=== PATIENT | female | born 1960 | race African-American/Black ===

== ENCOUNTER 2017-09-16 21:46 | Observation (INO) | payer OTHER ==
[2017-09-16 23:42] LABS: Protime INR 0.96
[2017-09-16 23:45] LABS: Absolute Lymphocytes (CBC) 4.2 K/uL (0.7-4.9); Absolute Monocytes 1.5 K/uL (0.1-1.3); Absolute Neutrophil 6.6 K/uL (1.8-8.0); Basophils % 0.8 % (0-1.3); Eosinophils % 2.7 % (0-4.4); Hematocrit 33.9 % (36.0-45.0); Lymphocytes % 33.3 % (15.3-44.8); MCH 32.2 pg (27.0-35.0); MCV 95.2 fL (80-100); Monocytes % 11.8 % (3.3-12.3); RBC Red Blood Cell Count 3.56 M/uL (3.86-4.86)
[2017-09-16 23:48] LABS: Bicarbonate 26 mEq/L (21-31); Glucose Level 205 mg/dL (65-120); Potassium 3.2 mEq/L (3.6-5.0); Sodium Level 139 mEq/L (135-145)
[2017-09-16 23:54] LABS: ALT/SGPT 22 IU/L (10-60); AST/SGOT 39 IU/L (10-42); Albumin 4.1 g/dL (3.2-5.5); Alkaline Phosphatase 52 IU/L (42-121); BUN Blood Urea Nitrogen 18 mg/dL (6-20); Bilirubin Direct < 0.1 mg/dL (0-0.2); Bilirubin Total 0.3 mg/dL (0.3-1.2); Creatine Phosphokinase 247 IU/L (22-269); Protein, Total 7.4 g/dL (6.0-8.3)
[2017-09-16] MEDS ORDERED: LORazepam 2 MG/ML VIAL ONE (23:55)
[2017-09-16 23:57] LABS: CKMB Creatine Kinase MB 1.3 ng/ml (0.3-4.0)
[2017-09-17] MEDS ORDERED: Magnesium Sulfate 2gm IVPB 2 G/50 ML BAG IV ONE (00:05)
[2017-09-17 00:11] LABS: Blood Morphology Comment NOTED (NOT SEEN); Howell-Jolly Bodies NOTED; Platelet Estimate ADEQ
[2017-09-17] MEDS ORDERED: ASPIRIN 81 MG CHEWABLE TABLET ONE (00:47)
[2017-09-17 01:04] LABS: Urine Blood NEGATIVE (NEG); Urine Glucose NEGATIVE (NEG); Urine Protein NEGATIVE (NEG); Urine pH 5.5 (5.0-7.0)
[2017-09-17] MEDS ORDERED: ACETAMINOPHEN 500 MG TAB ONE (02:21)
[2017-09-17] MEDS ORDERED: NA CHLORIDE 0.9% 1,000 ML ONE (03:06)
--- NOTE | 2017-09-17 03:06 | ER ---
Nurse's Notes [facility] Name: Destiny Salguero Age: 57 yrs Sex: Female : 1960 Arrival Date: 09/16/2017 Time: 21:47 Bed 18 Private MD: Diagnosis: Dyspnea;Hypomagnesemia;Hypokalemia Presentation: 09/16 21:55 Presenting complaint: Patient states: N/V, cough \\T\\ SOB x 2 weeks. States, "I've just aa1 been fightin it but these past 2 days it just got worser and I just hurt all over and I have chronic pain anyway.". Transition of care: patient was not received from another setting of care. Onset of symptoms was September 05, 2017. Initial Sepsis Screen: Does the patient meet any 2 criteria? No. Patient's initial sepsis screen is negative. Does the patient have a suspected source of infection? Yes: Productive cough/pneumonia. Care prior to arrival: None. 21:55 Method Of Arrival: Wheelchair aa1 21:55 Acuity: MARYBEL 3 aa1 Triage Assessment: 22:01 General: Appears in no apparent distress. comfortable, Behavior is calm, cooperative, aa1 appropriate for age. Respiratory: Airway is patent Respiratory effort is even, unlabored. 09/17 03:28 Respiratory: Onset: The symptoms/episode began/occurred yesterday, the patient has mild jd3 shortness of breath. Historical: - Allergies: 09/16 22:01 Sulfasalazine (Vomiting); aa1 - Home Meds: 22:01 metformin 1,000 mg Oral tab 1 tab 2 times per day [Active]; lisinopril 5 mg Oral tab 1 aa1 tab once daily [Active]; bumetanide 2 mg Oral tab 1 tab once daily [Active]; simvastatin 20 mg Oral tab 1 tab nightly [Active]; carvedilol 6.25 mg Oral tab 1 tab 2 times per day [Active]; aspirin 81 mg Oral TbEC 1 tab once daily [Active]; folic acid 1 mg Oral tab 1 tab once daily [Active]; methotrexate sodium 2.5 mg Oral tab 3 tabs once wkly [Active]; Novolin N 100 unit/mL Sub-Q tab [Active]; Novolin R Sub-Q [Active]; omeprazole 40 mg oral cpDR once daily [Active]; Orencia 125 mg/mL subcutaneous syrg 1 mL once wkly [Active]; Vitamin D3 5,000 unit oral tab daily [Active]; Vitamin B-12 1,000 mcg Oral tab daily [Active]; - PMHx: 22:01 Anemia; Diabetes - IDDM; Hyperlipidemia; CHF; Hypertension; Rheumatoid Arthritis; aa1 sciatica; - PSHx: 22:01 Pacemaker; Spleenectomy; Appendectomy; Desmoid Tumor Removal; Carpal Tunnel Repair; aa1 Bunionectomy; Bone Spur Removal Cervical; - Immunization history:: Flu vaccine is not up to date. - Social history:: Smoking status: Patient/guardian denies using tobacco. Screenin/04 03:26 Abuse screen: Denies threats or abuse. Nutritional screening: No deficits noted. jd3 Tuberculosis screening: No symptoms or risk factors identified. Fall Risk IV access (20 points). Ambulatory Aid- Crutches/Cane/Walker (15 pts). Gait- Weak (10 pts.). Total Roque Fall Scale indicates High Risk Score (45 or more points). Fall prevention measures have been instituted. Side Rails Up X 2 Placed Close to Nursing Station Frequent Obs/Assessments Occuring Family Present and informed to notify staff if the need to leave the bedside. Assessment: 09/16 23:32 General: Appears distressed, ill, Behavior is cooperative, crying, restless, Reports mb3 feeling ill for > 3 days, states feels like it did when she had to have the cardiocentesis. Pain: Complains of pain in back and abdomen. Neuro: No deficits noted. Cardiovascular: Reports fatigue, nausea, shortness of breath, vomiting, Heart tones present Rhythm is A-V sequential pacer. Respiratory: Reports shortness of breath at rest labored breathing since last week Respiratory effort is even, unlabored, Respiratory pattern is regular, symmetrical, Breath sounds are clear Breath sounds are diminished bilaterally. in left lower lobe, right lower lobe, left posterior lower lobe and right posterior lower lobe. GI: Bowel sounds present X 4 quads. Abd is soft Abdomen is tender to palpation in right lower quadrant Reports cramping, nausea, vomiting. Musculoskeletal: No deficits noted. 09/17 00:34 Reassessment: Patient and/or family updated on plan of care and expected duration. Pain mb3 level reassessed. Patient is alert, oriented x 3, equal unlabored respirations, skin warm/dry/pink. Pt states head starting to hurt. 01:35 Reassessment: Patient and/or family updated on plan of care and expected duration. Pain mb3 level reassessed. Patient is alert, oriented x 3, equal unlabored respirations, skin warm/dry/pink. Patient states feeling better. 02:19 Reassessment: Patient and/or family updated on plan of care and expected duration. Pain mb3 level reassessed. States headache getting worse. Brent CLINICAL TRIALS NURSE informed. 03:26 Reassessment: Patient appears in no apparent distress at this time. Patient and/or jd3 family updated on plan of care and expected duration. Pain level reassessed. Patient is alert, oriented x 3, equal unlabored respirations, skin warm/dry/pink. 04:30 Reassessment: Patient appears in no apparent distress at this time. Patient and/or jd3 family updated on plan of care and expected duration. Pain level reassessed. Patient is alert, oriented x 3, equal unlabored respirations, skin warm/dry/pink. 05:36 Reassessment: Patient appears in no apparent distress at this time. Patient and/or jd3 family updated on plan of care and expected duration. Pain level reassessed. Patient is alert, oriented x 3, equal unlabored respirations, skin warm/dry/pink. pt reporting understanding on need for admission. charting continued in [facility]. Vital Signs: 09/16 22:01 BP 113 / 71; Pulse 87; Resp 20; Temp 97.9; Pulse Ox 100% on R/A; Weight 101.6 kg (R); aa1 Height 5 ft. 8 in. (172.72 cm) (R); Pain 10/; 09/17 00:04 BP 100 / 58; Pulse 90; Resp 20; Pulse Ox 100% on R/A; mb3 00:32 BP 115 / 64; Pulse 88; Resp 20; Pulse Ox 99% on R/A; Pain 6/10; mb3 01:29 BP 109 / 62; Pulse 74; Resp 20; Pulse Ox 100% on R/A; mb3 02:17 BP 96 / 58; Pulse 88; Resp 20; Pulse Ox 99% on R/A; Pain 8/10; mb3 03:25 BP 118 / 69; Pulse 85; Resp 19 S; Pulse Ox 100% on R/A; jd3 05:44 BP 124 / 59; Pulse 82; Resp 19 S; Pulse Ox 99% on R/A; Pain 0/10; jd3 0503 22:01 Body Mass Index 34.06 (101.60 kg, 172.72 cm) aa1 ED Course: 09/16 21:47 Patient arrived in ED. ds1 21:57 Triage completed. aa1 22:01 Arm band placed on right wrist. aa1 22:35 Selena Kennedy FNP-C is PHCP. snw 22:35 Refugio Alberto MD is Attending Physician. snw 22:49 Gabriele Perez, [place] is Primary Nurse. mb3 23:32 XRAY Chest (1 view) In Process Unspecified. EDMS 23:32 Inserted saline lock: 18 gauge in right antecubital area, using aseptic technique. mb3 05 00:03 Notified Nurse Practitioner and/or Physician Undercover Cop of a critical lab result(s), Mag mb3 \\T\\1.0. 03:04 Chapin Salmeron MD is Hospitalizing Provider. snw 03:28 Patient has correct armband on for positive identification. Placed in gown. Bed in low jd3 position. Call light in reach. Side rails up X2. Adult w/ patient. 04:04 Primary Nurse role handed off by Gabriele Perez, [place] jd3 04:04 Eulogio Reynolds, [place] is Primary Nurse. jd3 05:35 No provider procedures requiring assistance completed. Patient admitted, IV remains in tl2 place. 09:27 Echocardiogram with doppler done by science technician. dt2 09:27 Dressings:. dt2 09:58 Primary Nurse role handed off by Eulogio Reynolds, RN ed1 09:58 Karyn Tran LVN is Primary Nurse. ed1 11:06 Patient admitted, IV remains in place. intact, No redness/swelling at site. ed1 Administered Medications: 00:00 Drug: Ativan 1 mg Route: IVP; Site: right antecubital; mb3 01:32 Follow up: Response: Anxiety decreased mb3 00:25 Drug: Magnesium Sulfate 2 grams Route: IVPB; Infused Over: 2 hrs; Site: right mb3 antecubital; 01:29 Follow up: BP 109 / 62; Pulse 74 bpm; Resp 20 bpm; Pulse Ox 100% RA mb3 01:31 Follow up: IV Status: Completed infusion; IV converted to saline lock; IV Intake: 100ml mb3 01:01 Drug: Aspirin Chewable Tablet 324 mg Route: PO; jd3 01:32 Follow up: Response: No adverse reaction mb3 02:23 Drug: Tylenol 500 mg Route: PO; jd3 03:01 Follow up: Response: No adverse reaction jd3 03:20 Drug: Potassium Chloride 20 mEq Route: IV; Rate: calculated rate; Site: right jd3 antecubital; 05:37 Follow up: Response: No adverse reaction; IV Status: Completed infusion jd3 03:20 Drug: NS 0.9% 1000 ml Route: IV; Rate: 75 ml/hr; Site: right antecubital; jd3 05:37 Follow up: Response: No adverse reaction; IV Status: Order to discontinue infusion; IV jd3 Intake: 75ml 04:26 Drug: Ativan 1 mg Route: PO; tl2 05:37 Follow up: Response: Marked relief of symptoms jd3 Intake: 01:31 IV: 100ml; Total: 100ml. mb3 05:37 IV: 75ml; Total: 175ml. jd3 Outcome: 03:05 Decision to Hospitalize by Provider. snw 05:35 Admitted to ER Hold. Please see [facility] for further documentation. jd3 05:35 Condition: stable 05:35 Instructed on the need for admit, Demonstrated understanding of instructions. 11:06 Admitted to Med/surg accompanied by tech, family with patient, via stretcher, room 211, ed1 Report called to [place] Sheridan 11:07 Patient left the ED. ed1 Signatures: Dispatcher [employer] EDMS Jessika Alicea RN RN aa1 Selena Kennedy, DIAMOND DRILLER HELPER-C DIAMOND DRILLER HELPER-CsnMaria Isabel Tomas ds1 Karyn Tran, CALL OR CONTACT CENTRE COACH CALL OR CONTACT CENTRE COACH ed1 Ella Randle RN RN tl2 Eulogio Reynolds RN RN jd3 Tania Naranjo dt2 Gabriele Perez RN RN mb3 Corrections: (The following items were deleted from the chart) 02:58 02:17 BP 96 / 58; Pulse 88bpm; Resp 20bpm; Pulse Ox 88% RA; Pain 8/10; mb3 mb3
--- NOTE | 2017-09-17 03:06 | EDPHYS ---
Physician Documentation [facility] Name: Destiny Salguero Age: 57 yrs Sex: Female : 1960 Arrival Date: 09/16/2017 Time: 21:47 Bed 18 Private MD: ED Physician Refugio Alberto HPI: 09/16 23:21 This 57 yrs old Black Female presents to ER via Wheelchair with complaints of Shortness snw Of Breath. 23:21 The patient has shortness of breath at rest. Onset: The symptoms/episode began/occurred snw suddenly, 2 week(s) ago, and became persistent. Duration: The symptoms are continuous. Associated signs and symptoms: Pertinent positives: pain all over, depression, shortness of breath x 2 weeks. Severity of symptoms: At their worst the symptoms were severe in the emergency department the symptoms are unchanged. The patient has experienced a previous episode, approximately 1 years ago. The patient has not recently seen a physician. changed from Dr. Hannon to a clinic in [facility]. Historical: - Allergies: 22:01 Sulfasalazine (Vomiting); aa1 - Home Meds: 22:01 metformin 1,000 mg Oral tab 1 tab 2 times per day [Active]; lisinopril 5 mg Oral tab 1 aa1 tab once daily [Active]; bumetanide 2 mg Oral tab 1 tab once daily [Active]; simvastatin 20 mg Oral tab 1 tab nightly [Active]; carvedilol 6.25 mg Oral tab 1 tab 2 times per day [Active]; aspirin 81 mg Oral TbEC 1 tab once daily [Active]; folic acid 1 mg Oral tab 1 tab once daily [Active]; methotrexate sodium 2.5 mg Oral tab 3 tabs once wkly [Active]; Novolin N 100 unit/mL Sub-Q tab [Active]; Novolin R Sub-Q [Active]; omeprazole 40 mg oral cpDR once daily [Active]; Orencia 125 mg/mL subcutaneous syrg 1 mL once wkly [Active]; Vitamin D3 5,000 unit oral tab daily [Active]; Vitamin B-12 1,000 mcg Oral tab daily [Active]; - PMHx: 22:01 Anemia; Diabetes - IDDM; Hyperlipidemia; CHF; Hypertension; Rheumatoid Arthritis; aa1 sciatica; - PSHx: 22:01 Pacemaker; Spleenectomy; Appendectomy; Desmoid Tumor Removal; Carpal Tunnel Repair; aa1 Bunionectomy; Bone Spur Removal Cervical; - Immunization history:: Flu vaccine is not up to date. - Social history:: Smoking status: Patient/guardian denies using tobacco. ROS: 23:21 Eyes: Negative for injury, pain, redness, and discharge, ENT: Negative for injury, snw pain, and discharge, Neck: Negative for injury, pain, and swelling. 23:21 Back: Negative for injury and pain, : Negative for injury, bleeding, discharge, and swelling, MS/Extremity: Negative for injury and deformity, Skin: Negative for injury, rash, and discoloration, Neuro: Negative for headache, weakness, numbness, tingling, and seizure. 23:21 Constitutional: Positive for body aches, chills, fatigue, malaise. 23:21 Cardiovascular: Positive for palpitations. 23:21 Respiratory: Positive for shortness of breath. 23:21 Abdomen/GI: Positive for abdominal pain, of the right lower quadrant. 23:21 Psych: Positive for anxiety, depression. Exam: 23:25 Head/Face: Normocephalic, atraumatic. Eyes: Pupils equal round and reactive to light, snw extra-ocular motions intact. Lids and lashes normal. Conjunctiva and sclera are non-icteric and not injected. Cornea within normal limits. Periorbital areas with no swelling, redness, or edema. ENT: Nares patent. No nasal discharge, no septal abnormalities noted. Tympanic membranes are normal and external auditory canals are clear. Oropharynx with no redness, swelling, or masses, exudates, or evidence of obstruction, uvula midline. Mucous membranes moist. Neck: Trachea midline, no thyromegaly or masses palpated, and no cervical lymphadenopathy. Supple, full range of motion without nuchal rigidity, or vertebral point tenderness. No Meningismus. Chest/axilla: Normal chest wall appearance and motion. Nontender with no deformity. No lesions are appreciated. Cardiovascular: Regular rate and rhythm with a normal S1 and S2. No gallops, murmurs, or rubs. Normal PMI, no JVD. No pulse deficits. Abdomen/GI: Soft, non-tender, with normal bowel sounds. No distension or tympany. No guarding or rebound. No evidence of tenderness throughout. Back: No spinal tenderness. No costovertebral tenderness. Full range of motion. Skin: Warm, dry with normal turgor. Normal color with no rashes, no lesions, and no evidence of cellulitis. MS/ Extremity: Pulses equal, no cyanosis. Neurovascular intact. Full, normal range of motion. Neuro: Awake and alert, GCS 15, oriented to person, place, time, and situation. Cranial nerves II-XII grossly intact. Motor strength 5/5 in all extremities. Sensory grossly intact. Cerebellar exam normal. Normal gait. 23:25 Constitutional: The patient appears alert, anxious, obese, restless, uncomfortable. 23:25 Respiratory: the patient does not display signs of respiratory distress, Respirations: shallow respirations, panting, Breath sounds: are clear throughout. Vital Signs: 22:01 BP 113 / 71; Pulse 87; Resp 20; Temp 97.9; Pulse Ox 100% on R/A; Weight 101.6 kg (R); aa1 Height 5 ft. 8 in. (172.72 cm) (R); Pain 10/10; 05 00:04 BP 100 / 58; Pulse 90; Resp 20; Pulse Ox 100% on R/A; mb3 00:32 BP 115 / 64; Pulse 88; Resp 20; Pulse Ox 99% on R/A; Pain 6/10; mb3 01:29 BP 109 / 62; Pulse 74; Resp 20; Pulse Ox 100% on R/A; mb3 02:17 BP 96 / 58; Pulse 88; Resp 20; Pulse Ox 99% on R/A; Pain 8/10; mb3 03:25 BP 118 / 69; Pulse 85; Resp 19 S; Pulse Ox 100% on R/A; jd3 05:44 BP 124 / 59; Pulse 82; Resp 19 S; Pulse Ox 99% on R/A; Pain 0/10; jd3 09/16 22:01 Body Mass Index 34.06 (101.60 kg, 172.72 cm) aa1 MDM: 09/16 22:36 Patient medically screened. snw 09/17 03:03 Data reviewed: vital signs, nurses notes. Data interpreted: Pulse oximetry: on room air snw is 100 %. Interpretation: normal. Counseling: I had a detailed discussion with the patient and/or guardian regarding: the historical points, exam findings, and any diagnostic results supporting the discharge/admit diagnosis, lab results, radiology results, the need for further work-up and treatment in the hospital. Physician consultation: Chapin Salmeron MD was called at 03:04, was contacted at 03:04, regarding admission, to the telemetry unit. in the emergency department to see patient at 03:04. 09/16 23:08 Order name: Basic Metabolic Panel; Complete Time: 00:03 snw 09/16 23:08 Order name: BNP; Complete Time: 00:02 snw 09/16 23:08 Order name: CBC with Diff; Complete Time: 00:22 snw 09/16 23:08 Order name: Ckmb; Complete Time: 00:03 snw 09/16 23:08 Order name: CPK; Complete Time: 00:03 snw 09/16 23:08 Order name: LFT's; Complete Time: 00:03 snw 09/16 23:08 Order name: Magnesium; Complete Time: 00:03 snw 09/16 23:08 Order name: PT-INR; Complete Time: 23:49 snw 09/16 23:08 Order name: Ptt, Activated; Complete Time: 23:49 snw 09/16 23:08 Order name: Troponin (emerg Dept Use Only); Complete Time: 00:02 snw 09/16 23:09 Order name: Blood Culture Adult (2) snw 09/16 23:09 Order name: Procalcitonin; Complete Time: 00:04 snw 09/17 00:11 Order name: Manual Differential; Complete Time: 00:22 EDMS 09/17 00:23 Order name: Urine Dipstick--Ancillary (enter results); Complete Time: 01:13 rg2 09/16 23:08 Order name: XRAY Chest (1 view); Complete Time: 16:59 snw 09/16 23:08 Order name: EKG; Complete Time: 23:09 snw 09/16 23:08 Order name: Cardiac monitoring; Complete Time: 23:12 snw 09/16 23:08 Order name: EKG - Nurse/Tech; Complete Time: 23:45 snw 09/16 23:08 Order name: IV Saline Lock; Complete Time: 23:32 snw 09/16 23:08 Order name: Labs collected and sent; Complete Time: 23:32 snw 09/16 23:08 Order name: O2 Per Protocol; Complete Time: 23:12 snw 09/17 06:50 Order name: Troponin I; Complete Time: 16:59 EDMS 09/17 08:06 Order name: Glucose, Ancillary Testing; Complete Time: 16:59 EDMS 09/16 23:08 Order name: O2 Sat Monitoring; Complete Time: 23:12 snw 09/16 23:08 Order name: Urine Dipstick-Ancillary (obtain specimen); Complete Time: 00:31 snw Administered Medications: 00:00 Drug: Ativan 1 mg Route: IVP; Site: right antecubital; mb3 01:32 Follow up: Response: Anxiety decreased mb3 00:25 Drug: Magnesium Sulfate 2 grams Route: IVPB; Infused Over: 2 hrs; Site: right 3 antecubital; 01:29 Follow up: BP 109 / 62; Pulse 74 bpm; Resp 20 bpm; Pulse Ox 100% RA mb3 01:31 Follow up: IV Status: Completed infusion; IV converted to saline lock; IV Intake: 100ml mb3 01:01 Drug: Aspirin Chewable Tablet 324 mg Route: PO; jd3 01:32 Follow up: Response: No adverse reaction mb3 02:23 Drug: Tylenol 500 mg Route: PO; jd3 03:01 Follow up: Response: No adverse reaction jd3 03:20 Drug: Potassium Chloride 20 mEq Route: IV; Rate: calculated rate; Site: right [facility] antecubital; 05:37 Follow up: Response: No adverse reaction; IV Status: Completed infusion jd3 03:20 Drug: NS 0.9% 1000 ml Route: IV; Rate: 75 ml/hr; Site: right antecubital; jd3 05:37 Follow up: Response: No adverse reaction; IV Status: Order to discontinue infusion; IV jd3 Intake: 75ml 04:26 Drug: Ativan 1 mg Route: PO; tl2 05:37 Follow up: Response: Marked relief of symptoms jd3 Disposition: 19:26 Co-signature as Attending Physician, Refugio Alberto MD. Disposition: 09/17/17 03:05 Hospitalization ordered by Chapin Salmeron for Inpatient Admission. Preliminary diagnosis are Dyspnea, Hypomagnesemia, Hypokalemia. - Bed requested for Telemetry/MedSurg (Inpatient). - Status is Inpatient Admission. ed1 - Condition is Stable. - Problem is an acute exacerbation. - Symptoms are unchanged. UTI on Admission? No Signatures: Dispatcher [employer] EDMS Juan Ramon Vera rg2 Jessika Alicea, RN RN aa1 Selena Kennedy, LAST TRIMMER-C LAST TRIMMER-Csnw Tran, Karyn, LOAD TEST MECHANIC LOAD TEST MECHANIC ed1 Ella Randle RN RN tl2 Carlotta Gallagher RN RN df Refugio Alberto MD MD Eulogio Reynolds RN RN jd3 Mora Carrillo Mark RN RN mb3 Corrections: (The following items were deleted from the chart) 01:01 09/16 23:08 [place] ordered. snw jd3 09/17 04:12 03:05 Hospitalization Ordered by Chapin Salmeron MD for Inpatient Admission. Preliminary rg2 diagnosis is Dyspnea; Hypomagnesemia; Hypokalemia. Bed requested for Telemetry/MedSurg (observation). Status is Inpatient Admission. Condition is Stable. Problem is an acute exacerbation. Symptoms are unchanged. UTI on Admission? No. snw 07:06 04:12 09/17/2017 03:05 Hospitalization Ordered by Chapin Salmeron MD for Inpatient eb Admission. Preliminary diagnosis is Dyspnea; Hypomagnesemia; Hypokalemia. Bed requested for [facility] ER HOLD. Status is Inpatient Admission. Condition is Stable. Problem is an acute exacerbation. Symptoms are unchanged. UTI on Admission? No. rg2 09:40 07:06 09/17/2017 03:05 Hospitalization Ordered by Chapin Salmeron MD for Inpatient eb Admission. Preliminary diagnosis is Dyspnea; Hypomagnesemia; Hypokalemia. Bed requested for [facility] ER HOLD. Status is Inpatient Admission. Condition is Stable. Problem is an acute exacerbation. Symptoms are unchanged. UTI on Admission? No. eb 09:41 09:40 09/17/2017 03:05 Hospitalization Ordered by Chapin Salmeron MD for Inpatient df Admission. Preliminary diagnosis is Dyspnea; Hypomagnesemia; Hypokalemia. Bed requested for Telemetry/MedSurg (Inpatient). Status is Inpatient Admission. Condition is Stable. Problem is an acute exacerbation. Symptoms are unchanged. UTI on Admission? No. eb 09:54 09:41 09/17/2017 03:05 Hospitalization Ordered by Chapin Salmeron MD for Inpatient df Admission. Preliminary diagnosis is Dyspnea; Hypomagnesemia; Hypokalemia. Bed requested for Telemetry/MedSurg (Inpatient). Status is Inpatient Admission. Condition is Stable. Problem is an acute exacerbation. Symptoms are unchanged. UTI on Admission? No. df 10:43 09:54 09/17/2017 03:05 Hospitalization Ordered by Chapin Salmeron MD for Inpatient eb Admission. Preliminary diagnosis is Dyspnea; Hypomagnesemia; Hypokalemia. Bed requested for [facility] ER HOLD. Status is Inpatient Admission. Condition is Stable. Problem is an acute exacerbation. Symptoms are unchanged. UTI on Admission? No. df 11:07 10:43 09/17/2017 03:05 Hospitalization Ordered by Chapin Salmeron MD for Inpatient ed1 Admission. Preliminary diagnosis is Dyspnea; Hypomagnesemia; Hypokalemia. Bed requested for Telemetry/MedSurg (Inpatient). Status is Inpatient Admission. Condition is Stable. Problem is an acute exacerbation. Symptoms are unchanged. UTI on Admission? No. eb
[2017-09-17] MEDS ORDERED: KCL 20 MEQ/100 mL IVPB 20 MEQ/100 ML BAG IV ONE (03:07)
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
[2017-09-17] MEDS ORDERED: LORAZEPAM 1 MG TABLET ONE (04:24)
[2017-09-17] MEDS ORDERED: ONDANSETRON 4 MG/2 ML VIAL IV PRN (04:50)
[2017-09-17 05:28] VITALS: BMI 34.0
[2017-09-17] MEDS: INSULIN -REGULAR HUMAN 50 UNIT/0.5 ML ML SQ SCH ×4 (07:30→20:08)
--- NOTE | 2017-09-17 07:53 | RAD REPORT ---
EXAM DESCRIPTION: Nichole Single View09/16/2017 11:32 pm CLINICAL HISTORY: Cough COMPARISON: November 2016 FINDINGS: The left lung base is mildly hazy. The right lung appears appear clear of acute infiltrate . The heart is normal size. Pacemaker leads are in place. IMPRESSION: The left lung base is mildly hazy which may indicate the pneumonia. Another consideratio n is that this represents overlying soft tissue. PA and lateral chest series could be obtained for fu rther evaluation
--- NOTE | 2017-09-17 12:18 | EKG ---
Test Date: 2017-09-17 Test Time: 03:06:17 [employer] Cl[employer]: MIREYA MEASUREMENT RESULTS: Intervals: Rate: 85 SD: 192 QRSD: 170 QT: 456 QTc: 542 [place]: P: 67 SD: 192 QRS: -69 T: 80 INTERPRETIVE STATEMENTS: Electronic ventricular pacemaker Compared to ECG 11/24/2016 14:02:18 No significant changes Electronically Signed On 09-17-17 12:17:35 CDT by Orlando Ding
--- NOTE | 2017-09-17 14:24 | ECHO ---
HEIGHT: 5 ft 8 in WEIGHT: 223 lb 15.834 oz DATE OF STUDY: 09/17/[address]: 2-DIMENSIONAL: YES M.MODE: YES DOPPLER: YES COLOR FLOW: YES TDS: NO PORTABLE: NO DEFINITY: NO BUBBLE STUDY: NO DIAGNOSIS: SHORTNESS OF BREATH CARDIAC HISTORY: CATHERIZATION: NO SURGERY: NO PROSTHETIC VALVE: NO PACEMAKER: YES MEASUREMENTS (cm) DIASTOLIC (NORMALS) SYSTOLIC (NORMALS) IVSd 1.0 (0.6-1.2) LA Diam 3.4 (1.9-4.0) LVEF 50-55% LVIDd 4.2 (3.5-5.7) LVIDs 3.2 (2.0-3.5) %FS 23% LVPWd 1.0 (0.6-1.2) Ao Diam 3.1 (2.0-3.7) 2 DIMENSIONAL ASSESSMENT: RIGHT ATRIUM: DILATED LEFT ATRIUM: DILATED RIGHT VENTRICLE: PACEMAKER IN RIGHT VENTRICULAR LEFT VENTRICLE: NORMAL TRICUSPID VALVE: NORMAL MITRAL VALVE: NORMAL PULMONIC VALVE: NORMAL AORTIC VALVE: SCLEROSIS PERICARDIAL EFFUSION: NONE AORTIC ROOT: NORMAL LEFT VENTRICULAR WALL MOTION: PARADOXICAL SEPTAL MOTION. POSSIBLY DUE TO PACED RHYTHM. DOPPLER/COLOR FLOW: IMPARIED LEFT VENTRICULAR RELAXATION. NO AORTIC STENOSIS OR AORTIC REGURGITATION. COMMENTS: NORMAL LEFT VENTRICULAR EJECTION FRACTIONS WITH PARADOXAL SEPTAL MOTION. DILATED LEFT ATRIUM. DILATED RIGHT ATRIUM. PACEMAKER IN RIGHT VENTRICLE. IMPAIRED LEFT VENTRICULAR RELAXATION. AORTIC SCLEROSIS. TECHNOLOGIST: KATHLEEN CHAMORRO RDCS
[2017-09-17] MEDS: HYDROCODONE/APAP 5/325 MG TAB PO PRN ×2 (14:36→20:10)
[2017-09-17 23:21] VITALS: O2SAT 99
[2017-09-17] MEDS ORDERED: MAGNESIUM SULFATE 1 gm IVPB 1 GM/100 ML BAG IV ONE (23:23)
[2017-09-18] MEDS: HYDROCODONE/APAP 5/325 MG TAB PO PRN ×2 (04:49→12:37)
[2017-09-18 06:13] LABS: Potassium 4.3 mEq/L (3.6-5.0)
[2017-09-18 06:48] LABS: Absolute Lymphocytes (CBC) 4.1 K/uL (0.7-4.9); Absolute Monocytes 1.5 K/uL (0.1-1.3); Absolute Neutrophil 10.3 K/uL (1.8-8.0); Basophils % 0.7 % (0-1.3); Eosinophils % 2.1 % (0-4.4); Hematocrit 32.9 % (36.0-45.0); Lymphocytes % 24.9 % (15.3-44.8); MCH 31.6 pg (27.0-35.0); MCV 96.5 fL (80-100); MPV 9.3 fL (7.6-11.3); Monocytes % 9.2 % (3.3-12.3)
[2017-09-18] MEDS: INSULIN -REGULAR HUMAN 50 UNIT/0.5 ML ML SQ SCH ×3 (07:30→16:30)
[2017-09-18] MEDS ORDERED: Morphine 2 MG/2 ML SYR IV ONE (11:00)
--- NOTE | 2017-09-18 12:31 | P.DS ---
Admission Date: 09/17/17 Discharge Date: 09/18/17 Disposition: ROUTINE DISCHARGE Discharge Condition: GOOD Reason for Admission: dyspnea Procedures: TTE:NORMAL LEFT VENTRICULAR EJECTION FRACTIONS WITH PARADOXAL SEPTAL MOTION. DILATED LEFT ATRIUM. DILATED RIGHT ATRIUM. PACEMAKER IN RIGHT VENTRICLE. IMPAIRED LEFT VENTRICULAR RELAXATION. AORTIC SCLEROSIS. Brief History of Present Illness: Ms Salguero is a 57 years old woman with multiple medical problems including RA, HTN, IDDM, pericardial effusion, who came to ED complaining of progressive SOB. Her symptoms started about 2 weeks ago, and was getting worse over this time. She denied any chest pain or palpitation. SOB is worse with light movements, no fever or chills. She has been coughing, sometimes she has white secretions, but mostly dry. The patient states that her symptoms are similar to the time when she had pericardial effusion. At arrival her O2 sat was 100% on RA, afebrile. Hospital Course: She was placed on telemetry.TTE was unremarkable.Her symptoms improved.Her saturation remained at 100% with no oxygen requirement.She was discharged home in a stable condition Vital Signs/Physical Exam: Temp Pulse Resp BP Pulse Ox 97.5 F 88 16 117/63 99 09/18/17 08:00 09/18/17 08:00 09/18/17 08:00 09/18/17 08:00 09/18/17 08:00 General: Alert, In no apparent distress, Oriented x3 HEENT: Atraumatic, Normocephalic, PERRLA Neck: Supple, JVD not distended, No Thyromegaly, No LAD Respiratory: Clear to auscultation bilaterally, Normal air movement Cardiovascular: No edema, Normal pulses, Regular rate/rhythm, Normal S1 S2, No gallops, No rubs, No murmurs Gastrointestinal: Normal bowel sounds, Soft and benign, Non-distended, W/out hepatosplenomegaly, No ascites, No tenderness, No masses, No rebound, No guarding Musculoskeletal: No clubbing, No swelling, No contractures, No erythema, No tenderness Integumentary: No rashes, No breakdown, No significant lesion, No tenderness/ swelling, No erythema, No warmth, No cyanosis Neurological: Normal gait, Normal speech, Normal strength at 5/5 x4 extr, Normal tone Laboratory Data at Discharge: WBC 16.4 K/uL (4.3-10.9) H D 09/18/17 04:33 Hgb 10.8 g/dL (12.0-15.0) L 09/18/17 04:33 Hct 32.9 % (36.0-45.0) L 09/18/17 04:33 Plt Count 233 K/uL (152-406) D 09/18/17 04:33 PT 11.3 SECONDS (9.5-12.5) 09/16/17 23:20 INR 0.96 09/16/17 23:20 APTT 24.2 SECONDS (24.3-36.9) L 09/16/17 23:20 Sodium 139 mEq/L (135-145) 09/18/17 04:33 Potassium 4.3 mEq/L (3.6-5.0) 09/18/17 04:33 BUN 12 mg/dL (6-20) 09/18/17 04:33 Creatinine 0.96 mg/dL (0.44-1.00) 09/18/17 04:33 Glucose 193 mg/dL (65-120) H 09/18/17 04:33 Magnesium 2.0 mg/dL (1.8-2.5) 09/18/17 04:33 Total Bilirubin 0.3 mg/dL (0.3-1.2) 09/16/17 23:20 AST 39 IU/L (10-42) 09/16/17 23:20 ALT 22 IU/L (10-60) 09/16/17 23:20 Alkaline Phosphatase 52 IU/L (42-121) 09/16/17 23:20 Troponin I 0.07 ng/mL (<0.03) H 09/17/17 12:58 B-Natriuretic Peptide 70 pg/ml (<=100) 09/16/17 23:20 Home Medications: Aspirin 81 mg PO DAILY #30 tab.chew 10/18/13 Metformin HCl [Glucophage] 1,000 mg PO BID #60 tablet 10/18/13 Simvastatin [Zocor*] 20 mg PO BEDTIME #30 tablet 10/18/13 Omeprazole [Prilosec] 20 mg PO DAILY 05/13/15 Insulin NPH Human [Novolin N (Humulin N)*] 15 units SQ [id number] 07/14/15 Abatacept [Orencia] 125 mg SQ EVERY 7TH DAY 09/01/16 Bumetanide [Bumex] 1 mg PO BID 09/01/16 Carvedilol [Coreg*] 3.125 mg PO BID 09/01/16 Lisinopril [Prinivil*] 5 mg PO [id number] 09/01/16 Methotrexate [Methotrexate*] 6 tab PO EVERY 7TH DAY 09/01/16 Abatacept [Orencia] 125 mg SQ EVERY 7TH DAY 09/17/17 Cyanocobalamin [Vitamin B-12*] 1,000 mcg PO DAILY 09/17/17 Folic Acid 1 mg PO DAILY 09/17/17 Insulin NPH Human [Novolin N (Humulin N)*] 10 units SQ DAILY AT SUPPER Codeine/APAP [Tylenol W/Codeine #3 tab] 1 tab PO Q6HP PRN #30 tab 09/18/17 New Medications: Codeine/APAP [Tylenol W/Codeine #3 tab] 1 tab PO Q6HP PRN #30 tab PRN Reason: Pain Patient Discharge Instructions: Follow up with PCP and pain doctor as needed. Return to Er with new or worsening symptoms Diet: ADA Activity: Ad ino
[2017-09-18 15:03] VITALS: BP 120/61; TEMP 97.1
== END 2017-09-18 17:21 | disposition home or self-care (01) ==
LOC: ER 21:46 → ERHOLD 09-17 03:30 → 2ND 09-17 10:59
PROVIDERS: ADMIT Internal Medicine; ATTEND Internal Medicine
DX: R06.00 Dyspnea, unspecified (principal); E87.6 Hypokalemia; E83.42 Hypomagnesemia; I12.9 Hypertensive chronic kidney disease with stage 1 through stage 4 chronic kidney disease, or unspecified chronic kidney disease; E11.22 Type 2 diabetes mellitus with diabetic chronic kidney disease; N18.3 Chronic kidney disease, stage 3 (moderate); E78.5 Hyperlipidemia, unspecified; M06.9 Rheumatoid arthritis, unspecified; Z88.2 Allergy status to sulfonamides; Z95.0 Presence of cardiac pacemaker; Z91.013 Allergy to seafood; Z79.82 Long term (current) use of aspirin
CPT/HCPCS: 36415 ×2; 71045; 80048 ×2; 80076; 81003; 82550; 82553; 82962 ×6; 83735 ×3; 83880; 84145; 84484 ×3; 85025 ×2; 85610; 85730; 87040 ×2; 93005; 93306; 96365; 96366; 96367; 96375; 99285; G0378 ×2; J2270; J2405; J3475 ×2; J7030

== ENCOUNTER 2018-03-24 18:51 | Emergency (ER) | payer OTHER ==
[2018-03-24] MEDS ORDERED: DIAZEPAM 2 MG TABLET ONE (20:00)
[2018-03-24] MEDS ORDERED: MORPHINE 4 MG/ML SYR ONE (20:00)
--- NOTE | 2018-03-24 20:30 | RAD REPORT ---
EXAM DESCRIPTION: CT - C Spine Wo Con - 03/24/2018 8:08 pm CLINICAL HISTORY: Left arm radiculopathy COMPARISON: March 2007 TECHNIQUE: Computed axial tomography of the cervical spine were obtained with sagittal and coronal r econstruction images generated and reviewed. All CT scans are performed using dose optimization technique as appropriate and may include automated exposure control or mA/KV adjustment according to patient size. FINDINGS: A cervical fracture is not seen. C2-3 is unremarkable Left laminectomy involves the mid cervical spine. Small left posterior-lateral disc osteophyte comple x C3-4. [id number] narrowing of the neural foramina bilaterally Small left paracentral disc osteophyte complex C4-5. Mild narrowing of the neural foramina Bulging disc and osteophytes C5-6. Moderate narrowing left neural foramina Mild spondylosis C6-7 Disc bulge and osteophytes C7-T1 mildly encroach upon the thecal sac . Calcification of the posterior longitudinal ligament involves mid cervical spine IMPRESSION: A cervical fracture is not seen. Postsurgical changes involving the mid cervical spine Small left posterolateral disc osteophyte complex C3-4 Small left paracentral disc osteophyte complex C4-5 Spondylosis C5-6 resulting in moderate left foraminal stenosis .
--- NOTE | 2018-03-24 20:34 | RAD REPORT ---
EXAM DESCRIPTION: CT - Shoulder Left Wo Con - 03/24/2018 8:09 pm CLINICAL HISTORY: Left arm pain. Left shoulder pain. Left arm radiculopathy COMPARISON: None. TECHNIQUE: Computed axial tomography of the left shoulder was obtained with coronal and sagittal rec onstruction All CT scans are performed using dose optimization technique as appropriate and may include automated exposure control or mA/KV adjustment according to patient size. FINDINGS: No fracture is seen. No dislocation is noted. Moderate osteoarthritis involves the acromioclavicular joint consisting of osteophytes and joint spac e narrowing. Calcification within the rotator cuff likely indicate calcific tendinitis Muscles comprising the left shoulder are normal size and density. A significant joint effusion is not seen IMPRESSION: No fracture is seen Moderate osteoarthritis involves the acromioclavicular joint Calcific tendinitis
--- NOTE | 2018-03-24 21:04 | ER ---
Nurse's Notes [facility] Name: Destiny Salguero Age: 58 yrs Sex: Female : 1960 Arrival Date: 03/24/2018 Time: 18:56 Bed 14 Private MD: Jessica Jones; None, None Diagnosis: Calcific Tendonitis of the Left Shoulder Presentation: 03/24 19:01 Presenting complaint: Patient states: "I've been hurting for the last 3 weeks in my aj1 shoulder up my neck down my arm. I have a pacemaker on that side When I went to see my kidney doctor a week ago she sent me for an X-Ray, but I didn't get the results on that. She prescribed tramadol three times a day, but that don't help none.". Transition of care: patient was not received from another setting of care. Onset of symptoms was March 2018. Risk Assessment: Do you want to hurt yourself or someone else? Patient reports no desire to harm self or others. Initial Sepsis Screen: Does the patient meet any 2 criteria? No. Patient's initial sepsis screen is negative. Does the patient have a suspected source of infection? No. Patient's initial sepsis screen is negative. Care prior to arrival: None. 19:01 Method Of Arrival: Wheelchair aj1 19:01 Acuity: MARYBEL 3 aj1 Triage Assessment: 19:07 General: Appears in no apparent distress. uncomfortable, Behavior is calm, cooperative, aj1 appropriate for age. Pain: Complains of pain in anterior aspect of left shoulder and posterior aspect of left shoulder Pain radiates to left arm and neck Pain currently is 10 out of 10 on a pain scale. Neuro: Level of Consciousness is awake, alert, obeys commands. Cardiovascular: Patient's skin is warm and dry. Respiratory: Airway is patent Respiratory effort is even, unlabored, Respiratory pattern is regular, symmetrical. Historical: - Allergies: 19:07 Sulfasalazine (Vomiting); aj1 - Home Meds: 19:07 aspirin 81 mg Oral TbEC 1 tab once daily [Active]; bumetanide 2 mg Oral tab 1 tab once aj1 daily [Active]; carvedilol 6.25 mg Oral tab 1 tab 2 times per day [Active]; folic acid 1 mg Oral tab 1 tab once daily [Active]; lisinopril 5 mg Oral tab 1 tab once daily [Active]; metformin 1,000 mg Oral tab 1 tab 2 times per day [Active]; Novolin N 100 unit/mL Sub-Q tab [Active]; Novolin R Sub-Q [Active]; omeprazole 40 mg Oral cpDR once daily [Active]; Orencia 125 mg/mL subcutaneous syrg 1 mL once wkly [Active]; simvastatin 20 mg Oral tab 1 tab nightly [Active]; - PMHx: 19:07 Anemia; CHF; Diabetes - IDDM; Hyperlipidemia; Hypertension; Rheumatoid Arthritis; aj1 sciatica; - Immunization history:: Flu vaccine is not up to date. - Social history:: Smoking status: Patient/guardian denies using tobacco. - Ebola Screening: : Patient denies travel to an Ebola-affected area in the 21 days before illness onset. - Family history:: not pertinent. - Hospitalizations: : No recent hospitalization is reported. Screenin:10 Abuse screen: Denies threats or abuse. Denies injuries from another. Nutritional aa1 screening: No deficits noted. Tuberculosis screening: No symptoms or risk factors identified. Fall Risk None identified. Assessment: 19:20 General: Appears in no apparent distress. uncomfortable, Behavior is calm, cooperative. aa1 Pain: Complains of pain in left shoulder Pain radiates to neck Pain currently is 10 out of 10 on a pain scale. Quality of pain is described as aching, Pain began 2 weeks Is intermittent, Alleviated by repositioning, Aggravated by increased activity, repositioning. 19:20 Neuro: Level of Consciousness is awake, alert, obeys commands, Oriented to person, aa1 place, time, situation. Cardiovascular: Capillary refill < 3 seconds Patient's skin is warm and dry. Cardiovascular: Rhythm is. Respiratory: Airway is patent. GI: Bowel sounds present X 4 quads. Abd is soft X 4 quads. : No signs and/or symptoms were reported regarding the genitourinary system. EENT: No signs and/or symptoms were reported regarding the EENT system. Derm: No signs and/or symptoms reported regarding the dermatologic system. Skin is intact, Skin is dry, Skin is pink, warm \\T\\ dry. Musculoskeletal: Capillary refill < 3 seconds, Range of motion: limited in left arm. 21:18 Reassessment: Patient appears in no apparent distress at this time. Patient and/or rr5 family updated on plan of care and expected duration. Pain level reassessed. Patient is alert, oriented x 3, equal unlabored respirations, skin warm/dry/pink. discussed with the patient the medication and follow up. Patient states feeling better. Patient states symptoms have improved. Vital Signs: 19:07 BP 112 / 69; Pulse 80; Resp 18; Temp 97.2; Pulse Ox 98% on R/A; Weight 101.6 kg (R); aj1 Height 5 ft. 8 in. (172.72 cm) (R); Pain 10/10; 19:42 BP 100 / 61; Pulse 87; Resp 17; Pulse Ox 100% on R/A; aa1 20:46 BP 140 / 69; Pulse 78; Resp 18; Pulse Ox 99% on R/A; aa1 21:15 BP 123 / 78; Pulse 89; Resp 17; rr5 21:18 BP 108 / 75; Pulse 75; Resp 16; Pulse Ox 98% ; Pain 3/10; rr5 21:20 Pain 3/10; rr5 19:07 Body Mass Index 34.06 (101.60 kg, 172.72 cm) aj1 ED Course: 18:56 Patient arrived in ED. sb2 18:56 None, None is Private Physician. sb2 18:57 Jessica Jones is Private Physician. sb2 19:05 Triage completed. aj1 19:07 Arm band placed on Patient placed in an exam room. aj1 19:10 Norm Thompson MD is Attending Physician. wa 19:10 Patient has correct armband on for positive identification. Bed in low position. Call aa1 light in reach. Pulse ox on. NIBP on. Warm blanket given. 19:[address] via wheelchair. vr 20:08 CT C Spine In Process Unspecified. EDMS 20:08 Shoulder Left Wo Con In Process Unspecified. EDMS 20:40 Inserted saline lock: 20 gauge in right forearm, using aseptic technique. rr5 21:03 Matthew Winston MD is Referral Physician. wa 21:05 Yamel Russ RN is Primary Nurse. rr5 21:18 Sling \\T\\ swathe to left arm. rr5 21:21 No provider procedures requiring assistance completed. IV discontinued, bleeding rr5 controlled, Pressure dressing applied. Administered Medications: 19:51 CANCELLED (Physician Discretion): morphine 5 mg IVP once nm 19:57 Drug: Valium 2 mg {Note: pain score of 10/10. given by yamel CHANDRA.} Route: PO; aa1 21:20 Follow up: Pain 3/10 Adult; Response: No adverse reaction rr5 20:40 Drug: morphine 4 mg {Note: BP140/69. given by Yamel CHANDRA.} Route: IVP; Site: right aa1 forearm; 21:15 Follow up: BP 123 / 78; Pulse 89 bpm; Resp 17 bpm rr5 21:19 Follow up: Response: No adverse reaction rr5 Outcome: 20:18 Discharged to home via wheelchair. rr5 21:03 Discharge ordered by . wa 21:18 Condition: stable rr5 21:18 Discharge instructions given to patient, family, Instructed on discharge instructions, follow up and referral plans. medication usage, Demonstrated understanding of instructions, follow-up care, medications, Prescriptions given X 2. 21:20 Patient left the ED. rr5 Signatures: Dispatcher [employer] EDMS Lola Mann RN RN aj1 Jessika Alicea RN RN aa1 Shanna Maguire William, MD MD wa B[place]au, Sheri 2 Yamel Russ, RN RN rr5 Corrections: (The following items were deleted from the chart) 21:23 21:21 No provider procedures requiring assistance completed. rr5 rr5
--- NOTE | 2018-03-24 21:05 | EDPHYS ---
Physician Documentation [facility] Name: Destiny Salguero Age: 58 yrs Sex: Female : 1960 Arrival Date: 03/24/2018 Time: 18:56 Bed 14 Private MD: Jessica Jones; None, None ED Physician Norm Thompson HPI: 03/24 21:10 This 58 yrs old Black Female presents to ER via Wheelchair with complaints of Left wa shoulder pain. 21:10 The patient or guardian complains of pain, that is acute. left shoulder. Context: The wa problem was sustained at an unknown site, resulted from an unknown reason, The patient experiences decreased range of motion, when rotates arm, The patient reports no obvious deformity. c/o severe L shoulder pain x 3 weeks. . Onset: The symptoms/episode began/occurred 3 week(s) ago. Modifying factors: the symptoms are alleviated by nothing. The symptoms are aggravated by movement, rotation of arm. Associated signs and symptoms: Pertinent positives: neck pain, Pertinent negatives: chest pain, shortness of breath, tingling. Severity of symptoms: At their worst the symptoms were severe, in the emergency department the symptoms are unchanged. The patient has not experienced similar symptoms in the past. The patient has not recently seen a physician. recently had X-rays taken but does not know results. Historical: - Allergies: 19:07 Sulfasalazine (Vomiting); aj1 - Home Meds: 19:07 aspirin 81 mg Oral TbEC 1 tab once daily [Active]; bumetanide 2 mg Oral tab 1 tab once aj1 daily [Active]; carvedilol 6.25 mg Oral tab 1 tab 2 times per day [Active]; folic acid 1 mg Oral tab 1 tab once daily [Active]; lisinopril 5 mg Oral tab 1 tab once daily [Active]; metformin 1,000 mg Oral tab 1 tab 2 times per day [Active]; Novolin N 100 unit/mL Sub-Q tab [Active]; Novolin R Sub-Q [Active]; omeprazole 40 mg Oral cpDR once daily [Active]; Orencia 125 mg/mL subcutaneous syrg 1 mL once wkly [Active]; simvastatin 20 mg Oral tab 1 tab nightly [Active]; - PMHx: 19:07 Anemia; CHF; Diabetes - IDDM; Hyperlipidemia; Hypertension; Rheumatoid Arthritis; aj1 sciatica; - Immunization history:: Flu vaccine is not up to date. - Social history:: Smoking status: Patient/guardian denies using tobacco. - Ebola Screening: : Patient denies travel to an Ebola-affected area in the 21 days before illness onset. - Family history:: not pertinent. - Hospitalizations: : No recent hospitalization is reported. ROS: 21:13 Constitutional: Negative for fever, chills, and weight loss, Eyes: Negative for injury, wa pain, redness, and discharge, ENT: Negative for injury, pain, and discharge, Neck: Negative for injury, pain, and swelling, Cardiovascular: Negative for chest pain, palpitations, and edema, Respiratory: Negative for shortness of breath, cough, wheezing, and pleuritic chest pain, Abdomen/GI: Negative for abdominal pain, nausea, vomiting, diarrhea, and constipation, Back: Negative for injury and pain, : Negative for injury, bleeding, discharge, and swelling, Skin: Negative for injury, rash, and discoloration, Neuro: Negative for headache, weakness, numbness, tingling, and seizure. 21:13 MS/extremity: Positive for pain, tenderness, of the left shoulder. 21:13 All other systems are negative. Exam: 21:13 Constitutional: This is a well developed, well nourished patient who is awake, alert, wa and in no acute distress. Head/Face: Normocephalic, atraumatic. Eyes: Pupils equal round and reactive to light, extra-ocular motions intact. Lids and lashes normal. Conjunctiva and sclera are non-icteric and not injected. Cornea within normal limits. Periorbital areas with no swelling, redness, or edema. ENT: Nares patent. No nasal discharge, no septal abnormalities noted. Tympanic membranes are normal and external auditory canals are clear. Oropharynx with no redness, swelling, or masses, exudates, or evidence of obstruction, uvula midline. Mucous membranes moist. Chest/axilla: Normal chest wall appearance and motion. Nontender with no deformity. No lesions are appreciated. Cardiovascular: Regular rate and rhythm with a normal S1 and S2. No gallops, murmurs, or rubs. Normal PMI, no JVD. No pulse deficits. Respiratory: Lungs have equal breath sounds bilaterally, clear to auscultation and percussion. No rales, rhonchi or wheezes noted. No increased work of breathing, no retractions or nasal flaring. Abdomen/GI: Soft, non-tender, with normal bowel sounds. No distension or tympany. No guarding or rebound. No evidence of tenderness throughout. Back: No spinal tenderness. No costovertebral tenderness. Full range of motion. Skin: Warm, dry with normal turgor. Normal color with no rashes, no lesions, and no evidence of cellulitis. Neuro: Awake and alert, GCS 15, oriented to person, place, time, and situation. Cranial nerves II-XII grossly intact. Motor strength 5/5 in all extremities. Sensory grossly intact. Cerebellar exam normal. Normal gait. Psych: Awake, alert, with orientation to person, place and time. Behavior, mood, and affect are within normal limits. 21:13 Neck: C-spine: vertebral tenderness, that is mild, appreciated at neck. 21:13 Musculoskeletal/extremity: Extremities: grossly normal except: pain, tenderness, diffuse rotator cuff tenderness to palpation. Vital Signs: 19:07 BP 112 / 69; Pulse 80; Resp 18; Temp 97.2; Pulse Ox 98% on R/A; Weight 101.6 kg (R); aj1 Height 5 ft. 8 in. (172.72 cm) (R); Pain 10/10; 19:42 BP 100 / 61; Pulse 87; Resp 17; Pulse Ox 100% on R/A; aa1 20:46 BP 140 / 69; Pulse 78; Resp 18; Pulse Ox 99% on R/A; aa1 21:15 BP 123 / 78; Pulse 89; Resp 17; rr5 21:18 BP 108 / 75; Pulse 75; Resp 16; Pulse Ox 98% ; Pain 3/10; rr5 21:20 Pain 3/10; rr5 19:07 Body Mass Index 34.06 (101.60 kg, 172.72 cm) [facility] Procedures: 21:16 Splinting: using sling, L UE. wa MDM: 19:10 Patient medically screened. wa 21:14 Differential diagnosis: tendonitis, consider fracture. consider radiculopathy secondary wa to encroachment from the c-spine. Data reviewed: vital signs, nurses notes, radiologic studies. Test interpretation: by ED physician or midlevel provider: CT c-spine: chronic changes related to previous surgery. spondylosis. L shoulder CT: calcific tendonitis. Response to treatment: the patient's symptoms have mildly improved after treatment. Special discussion: will have f/u with ortho. sling placed. 03/24 19:47 Order name: CT C Spine; Complete Time: 20:50 wa 03/24 19:56 Order name: Shoulder Left Wo Con; Complete Time: 20:49 EDID 03/24 19:47 Order name: IV Start; Complete Time: 21:20 wa 03/24 21:05 Order name: Sling: L shoulder; Complete Time: 21:20 wa Administered Medications: 19:51 CANCELLED (Physician Discretion): morphine 5 mg IVP once wa 19:57 Drug: Valium 2 mg {Note: pain score of 10/10. given by yamel CHANDRA.} Route: PO; aa1 21:20 Follow up: Pain 3/10 Adult; Response: No adverse reaction rr5 20:40 Drug: morphine 4 mg {Note: BP140/69. given by Yamel CHANDRA.} Route: IVP; Site: right aa1 forearm; 21:15 Follow up: BP 123 / 78; Pulse 89 bpm; Resp 17 bpm rr5 21:19 Follow up: Response: No adverse reaction rr5 Disposition: 03/24/18 21:03 Discharged to Home. Impression: Calcific Tendonitis of the Left Shoulder. - Condition is Stable. - Discharge Instructions: Calcific Tendinitis. - Prescriptions for Prednisone 20 mg Oral Tablet - take 2 tablet by ORAL route once daily for 5 days; 10 tablet. Valium 5 mg Oral Tablet - take 1 tablet by ORAL route At bedtime As needed; 6 tablet. - Medication Reconciliation Form, Thank You Letter, Antibiotic Education, Prescription Opioid Use form. - Follow up: Matthew Winston MD; When: 2 - 3 days; Reason: Recheck today's complaints. - Problem is new. - Symptoms have improved. - Notes: follow up with Dr. Winston for further evaluation as discussed. return to ER for rapidly worsening concerns Signatures: Dispatcher [employer] EDMS Lola Mann RN RN aj1 Jessika Alicea RN RN aa1 Norm Thompson MD MD wa Roque, Raymond, RN RN rr5 Corrections: (The following items were deleted from the chart) 19:51 19:47 morphine 5 mg IVP once ordered. [facility] 21:20 21:03 03/24/2018 21:03 Discharged to Home. Impression: Calcific Tendonitis of the Left rr5 Shoulder. Condition is Stable. Forms are Medication Reconciliation Form, Thank You Letter, Antibiotic Education, Prescription Opioid Use. Follow up: Matthew Winston; When: 2 - 3 days; Reason: Recheck today's complaints. Problem is new. Symptoms have improved. ar
[2018-03-24 21:47] VITALS: TEMP 97.2
[2018-03-24 21:50] VITALS: O2SAT 99
[2018-03-24 21:51] VITALS: BP 123/78
== END 2018-03-24 21:20 | disposition home or self-care (01) ==
LOC: ER 18:51
DX: M75.32 Calcific tendinitis of left shoulder (principal); I10 Essential (primary) hypertension; E11.9 Type 2 diabetes mellitus without complications; E78.5 Hyperlipidemia, unspecified; I50.9 Heart failure, unspecified; Z79.82 Long term (current) use of aspirin; Z79.4 Long term (current) use of insulin
CPT/HCPCS: 72125; 73200; 96374; 99284

== ENCOUNTER 2018-08-08 02:06 | Emergency (ER) | payer OTHER ==
[2018-08-08 04:03] LABS: Absolute Lymphocytes (CBC) 5.6 K/uL (0.7-4.9); Absolute Monocytes 1.5 K/uL (0.1-1.3)
[2018-08-08 04:21] LABS: Absolute Neutrophil 6.1 K/uL (1.8-8.0); Basophils % 1.3 % (0-1.3); Eosinophils % 2.4 % (0-4.4); Hematocrit 31.3 % (36.0-45.0); Lymphocytes % 40.9 % (15.3-44.8); Monocytes % 10.7 % (3.3-12.3); RBC Red Blood Cell Count 3.41 M/uL (3.86-4.86)
[2018-08-08 04:24] LABS: Potassium 4.2 mmol/L (3.5-5.1); Sodium Level 139 mmol/L (136-145)
[2018-08-08 04:25] LABS: ALT/SGPT 14 U/L (12-78); AST/SGOT 16 U/L (15-37); Albumin 3.7 g/dL (3.4-5.0); Alkaline Phosphatase 58 U/L (45-117); BUN Blood Urea Nitrogen 23 mg/dL (7-18); Bicarbonate 27 mmol/L (21-32); Bilirubin Direct < 0.1 mg/dL (0-0.2); Bilirubin Total 0.2 mg/dL (0.2-1.0); Glucose Level 90 mg/dL (74-106); Lipase 385 U/L (73-393); Protein, Total 6.9 g/dL (6.4-8.2)
[2018-08-08] MEDS ORDERED: MORPHINE 4 MG/ML SYR ONE (05:06)
[2018-08-08] MEDS ORDERED: ONDANSETRON 4 MG/2 ML VIAL ONE (05:06)
[2018-08-08 05:38] LABS: Urine Bacteria <20 /HPF (<20); Urine Culture Reflex Order NOT NEEDED; Urine RBC <5 /HPF (NONE SEEN)
[2018-08-08 05:56] LABS: Urine Blood NEGATIVE (NEG); Urine Glucose NEGATIVE (NEG); Urine Protein NEGATIVE (NEG); Urine Specific Gravity <1.005 (1.005-1.030); Urine pH 5.5 (5.0-7.0)
--- NOTE | 2018-08-08 07:20 | EDPHYS ---
Physician Documentation [facility] Name: Destiny Salguero Age: 58 yrs Sex: Female : 1960 Arrival Date: 08/08/2018 Time: 02:11 Bed 19 Private MD: ED Physician Vidal Bañuelos HPI: 08/08 05:42 This 58 yrs old Black Female presents to ER via Ambulatory with complaints of Abdominal tw4 Pain. 05:42 The patient presents with abdominal pain. Onset: The symptoms/episode began/occurred tw4 today. The symptoms do not radiate. Associated signs and symptoms: none. The symptoms are described as dull. Modifying factors: The symptoms are alleviated by nothing, the symptoms are aggravated by nothing. Severity of pain: At its worst the pain was moderate in the emergency department the pain is unchanged. The patient has not experienced similar symptoms in the past. Historical: - Allergies: 02:34 Sulfasalazine (Vomiting); la1 - Home Meds: 02:34 aspirin 81 mg Oral TbEC 1 tab once daily [Active]; bumetanide 2 mg Oral tab 1 tab once cc3 daily [Active]; carvedilol 6.25 mg Oral tab 1 tab 2 times per day [Active]; folic acid 1 mg Oral tab 1 tab once daily [Active]; lisinopril 5 mg Oral tab 1 tab once daily [Active]; metformin 1,000 mg Oral tab 1 tab 2 times per day [Active]; methotrexate sodium 2.5 mg Oral tab 3 tabs once wkly [Active]; Novolin N 100 unit/mL Sub-Q tab [Active]; Novolin R Sub-Q [Active]; omeprazole 40 mg Oral cpDR once daily [Active]; Orencia 125 mg/mL subcutaneous syrg 1 mL once wkly [Active]; simvastatin 20 mg Oral tab 1 tab nightly [Active]; - PMHx: 02:34 Anemia; CHF; Diabetes - IDDM; Hyperlipidemia; Hypertension; Rheumatoid Arthritis; la1 sciatica; - Immunization history:: Adult Immunizations up to date. - Social history:: Smoking status: Patient/guardian denies using tobacco. - Ebola Screening: : No symptoms or risks identified at this time. ROS: 05:42 Constitutional: Negative for fever, chills, and weight loss, Eyes: Negative for injury, tw4 pain, redness, and discharge, Cardiovascular: Negative for chest pain, palpitations, and edema, Respiratory: Negative for shortness of breath, cough, wheezing, and pleuritic chest pain, MS/Extremity: Negative for injury and deformity, Skin: Negative for injury, rash, and discoloration, Neuro: Negative for headache, weakness, numbness, tingling, and seizure. 05:42 Abdomen/GI: Positive for abdominal pain, nausea, Negative for nausea, vomiting, and diarrhea, vomiting, diarrhea, anorexia. Exam: 05:42 Constitutional: This is a well developed, well nourished patient who is awake, alert, tw4 and in no acute distress. Head/Face: Normocephalic, atraumatic. Chest/axilla: Normal chest wall appearance and motion. Nontender with no deformity. No lesions are appreciated. Cardiovascular: Regular rate and rhythm with a normal S1 and S2. No gallops, murmurs, or rubs. Normal PMI, no JVD. No pulse deficits. Respiratory: Lungs have equal breath sounds bilaterally, clear to auscultation and percussion. No rales, rhonchi or wheezes noted. No increased work of breathing, no retractions or nasal flaring. Back: No spinal tenderness. No costovertebral tenderness. Full range of motion. MS/ Extremity: Pulses equal, no cyanosis. Neurovascular intact. Full, normal range of motion. Neuro: Awake and alert, GCS 15, oriented to person, place, time, and situation. Cranial nerves II-XII grossly intact. Motor strength 5/5 in all extremities. Sensory grossly intact. Cerebellar exam normal. Normal gait. 05:42 Abdomen/GI: Inspection: abdomen appears normal, Bowel sounds: normal, Palpation: moderate abdominal tenderness, in the right upper quadrant. Vital Signs: 02:34 BP 131 / 100; Pulse 101; Resp 16; Pulse Ox 99% on R/A; Weight 91.63 kg; Height 5 ft. 8 la1 in. (172.72 cm); 03:11 BP 119 / 65; Pulse 79; Resp 17 S; Pulse Ox 99% on R/A; cc3 04:26 BP 113 / 72; Pulse 79; Resp 18 S; Pulse Ox 100% on R/A; cc3 05:15 BP 131 / 71; Pulse 80; Resp 17 S; Pulse Ox 100% on R/A; cc3 06:30 BP 120 / 64; Pulse 77; Resp 17 S; Pulse Ox 100% ; cc3 07:31 BP 110 / 70; Pulse 75; Resp 18; Pulse Ox 100% on R/A; hj 02:34 Body Mass Index 30.71 (91.63 kg, 172.72 cm) la1 MDM: 02:24 Patient medically screened. 08/08 02:25 Order name: Basic Metabolic Panel; Complete Time: 04:27 08/08 04:27 Interpretation: BUN 23; CRE 1.68; GFR 38. 08/08 02:25 Order name: CBC with Diff; Complete Time: 04:28 08/08 04:28 Interpretation: WBC 13.6; RBC 3.41; HGB 10.4; HCT 31.3; MCV 91.8; PLT 423. 08/08 02:25 Order name: Creatinine for Radiology; Complete Time: 04:28 08/08 02:25 Order name: Hepatic Function [facility] 08/08 02:25 Order name: Lipase 08/08 02:25 Order name: Urine Microscopic Only 08/08 04:34 Order name: CT Abd/Pelvis - Without Cont [facility] 08/08 05:01 Order name: Urine Dipstick--Ancillary (enter results) [facility] 08/08 05:01 Order name: Urine Dipstick-Ancillary [facility] 08/08 02:25 Order name: IV Saline Lock; Complete Time: 04:43 08/08 02:25 Order name: Labs collected and sent; Complete Time: 04:43 08/08 02:25 Order name: Urine Dipstick-Ancillary (obtain specimen); Complete Time: 04:43 Administered Medications: 04:55 CANCELLED (Duplicate Order): Zofran 4 mg IVP once; over 2 minutes cc3 04:55 Drug: morphine 4 mg Route: IVP; Site: right antecubital; cc3 05:30 Follow up: Response: No adverse reaction; Pain is decreased cc3 04:56 CANCELLED (Duplicate Order): morphine 4 mg IVP once cc3 05:00 Drug: Zofran 4 mg Route: IVP; Site: right antecubital; cc3 05:30 Follow up: Response: No adverse reaction; Nausea is decreased cc3 Disposition: 08/08/18 07:20 Discharged to Home. Impression: Lower abdominal pain, unspecified, Unspecified abdominal pain, Unspecified kidney failure, Chronic kidney failure. - Condition is Stable. - Discharge Instructions: Abdominal Pain, Adult, Colic, [id number]. - Prescriptions for Bentyl 20 mg Oral Tablet - take 1 tablet by ORAL route every 6 hours As needed; 20 tablet. Zofran 4 mg Oral Tablet - take 1 tablet by ORAL route every 12 hours As needed; 20 tablet. - Medication Reconciliation Form, Thank You Letter, Antibiotic Education, Prescription Opioid Use form. - Follow up: Private Physician; When: Upon discharge from the Emergency Department; Reason: If symptoms return, Recheck today's complaints, Continuance of care. - Problem is new. - Symptoms have improved. Signatures: Dispatcher [employer] [facility] Kailee Orozco RN RN bb Attema, Lee, RN RN la1 Taz Lisa RN RN hj Wadley, Terrence, MD MD tw4 Rosalina Vigil cc3 Corrections: (The following items were deleted from the chart) 04:55 04:51 Zofran 4 mg IVP once; over 2 minutes ordered. bb cc3 04:56 04:51 morphine 4 mg IVP once ordered. bb cc3 05:02 04:28 Abdomen Pelvis W Con+CT.RAD.BRZ ordered. [facility] EDMS 07:23 07:20 08/08/2018 07:20 Discharged to Home. Impression: Lower abdominal pain, tw4 unspecified; Unspecified abdominal pain. Condition is Stable. Forms are Medication Reconciliation Form, Thank You Letter, Antibiotic Education, Prescription Opioid Use. Follow up: Private Physician; When: Upon discharge from the Emergency Department; Reason: If symptoms return, Recheck today's complaints, Continuance of care. Problem is new. Symptoms have improved. tw4 07:33 07:23 08/08/2018 07:20 Discharged to Home. Impression: Lower abdominal pain, hj unspecified; Unspecified abdominal pain; Unspecified kidney failure; Chronic kidney failure. Condition is Stable. Discharge Instructions: Abdominal Pain, Adult, Colic, [id number]. Prescriptions for Bentyl 20 mg Oral Tablet - take 1 tablet by ORAL route every 6 hours As needed; 20 tablet, Zofran 4 mg Oral Tablet - take 1 tablet by ORAL route every 12 hours As needed; 20 tablet. and Forms are Medication Reconciliation Form, Thank You Letter, Antibiotic Education, Prescription Opioid Use. Follow up: Private Physician; When: Upon discharge from the Emergency Department; Reason: If symptoms return, Recheck today's complaints, Continuance of care. Problem is new. Symptoms have improved. tw4
--- NOTE | 2018-08-08 07:20 | ER ---
Nurse's Notes [facility] Name: Destiny Salguero Age: 58 yrs Sex: Female : 1960 Arrival Date: 08/08/2018 Time: 02:11 Bed 19 Private MD: Diagnosis: Lower abdominal pain, unspecified;Unspecified abdominal pain;Unspecified kidney failure;Chronic kidney failure Presentation: 08/08 02:33 Presenting complaint: Patient states: I have been having pain in my abd with some la1 nausea and vomiting. Transition of care: patient was not received from another setting of care. Onset of symptoms was August 08, 2018. Risk Assessment: Do you want to hurt yourself or someone else? Patient reports no desire to harm self or others. Initial Sepsis Screen: Does the patient meet any 2 criteria? No. Patient's initial sepsis screen is negative. Does the patient have a suspected source of infection? No. Patient's initial sepsis screen is negative. Care prior to arrival: None. 02:33 Method Of Arrival: Ambulatory la1 02:33 Acuity: MARYBEL 3 la1 Triage Assessment: 02:24 General: Appears in no apparent distress. uncomfortable, Behavior is calm, cooperative, cc3 appropriate for age. Pain: Complains of pain in right upper quadrant. EENT: No signs and/or symptoms were reported regarding the EENT system. Neuro: Level of Consciousness is awake, alert, obeys commands, Oriented to person, place, time, situation, Appropriate for age. Cardiovascular: Patient's skin is warm and dry. Respiratory: Airway is patent Respiratory effort is even, unlabored, Respiratory pattern is regular, symmetrical. GI: Abdomen is round obese. : No signs and/or symptoms were reported regarding the genitourinary system. Derm: No signs and/or symptoms reported regarding the dermatologic system. Musculoskeletal: Circulation, motion, and sensation intact. Range of motion: intact in all extremities. Historical: - Allergies: 02:34 Sulfasalazine (Vomiting); la1 - Home Meds: 02:34 aspirin 81 mg Oral TbEC 1 tab once daily [Active]; bumetanide 2 mg Oral tab 1 tab once cc3 daily [Active]; carvedilol 6.25 mg Oral tab 1 tab 2 times per day [Active]; folic acid 1 mg Oral tab 1 tab once daily [Active]; lisinopril 5 mg Oral tab 1 tab once daily [Active]; metformin 1,000 mg Oral tab 1 tab 2 times per day [Active]; methotrexate sodium 2.5 mg Oral tab 3 tabs once wkly [Active]; Novolin N 100 unit/mL Sub-Q tab [Active]; Novolin R Sub-Q [Active]; omeprazole 40 mg Oral cpDR once daily [Active]; Orencia 125 mg/mL subcutaneous syrg 1 mL once wkly [Active]; simvastatin 20 mg Oral tab 1 tab nightly [Active]; - PMHx: 02:34 Anemia; CHF; Diabetes - IDDM; Hyperlipidemia; Hypertension; Rheumatoid Arthritis; la1 sciatica; - Immunization history:: Adult Immunizations up to date. - Social history:: Smoking status: Patient/guardian denies using tobacco. - Ebola Screening: : No symptoms or risks identified at this time. Screenin:24 Abuse screen: Denies threats or abuse. Denies injuries from another. Nutritional cc3 screening: No deficits noted. Tuberculosis screening: No symptoms or risk factors identified. Fall Risk Ambulatory Aid- None/Bed Rest/Nurse Assist (0 pts). Gait- Normal/Bed Rest/Wheelchair (0 pts) Mental Status- Oriented to own ability (0 pts). Assessment: 02:24 GI: Bowel sounds present X 4 quads. Abd is soft and non tender X 4 quads. cc3 03:18 Reassessment: Patient appears in no apparent distress at this time. Patient and/or cc3 family updated on plan of care and expected duration. Pain level reassessed. Patient is alert, oriented x 3, equal unlabored respirations, skin warm/dry/pink. 04:20 Reassessment: Patient appears in no apparent distress at this time. Patient and/or cc3 family updated on plan of care and expected duration. Pain level reassessed. Patient is alert, oriented x 3, equal unlabored respirations, skin warm/dry/pink. 05:19 Reassessment: Patient appears in no apparent distress at this time. Patient and/or cc3 family updated on plan of care and expected duration. Pain level reassessed. Patient is alert, oriented x 3, equal unlabored respirations, skin warm/dry/pink. 06:10 Reassessment: Patient appears in no apparent distress at this time. Patient and/or cc3 family updated on plan of care and expected duration. Pain level reassessed. Patient is alert, oriented x 3, equal unlabored respirations, skin warm/dry/pink. Patient came back from CT scan department, awaiting result. Vital Signs: 02:34 BP 131 / 100; Pulse 101; Resp 16; Pulse Ox 99% on R/A; Weight 91.63 kg; Height 5 ft. 8 la1 in. (172.72 cm); 03:11 BP 119 / 65; Pulse 79; Resp 17 S; Pulse Ox 99% on R/A; cc3 04:26 BP 113 / 72; Pulse 79; Resp 18 S; Pulse Ox 100% on R/A; cc3 05:15 BP 131 / 71; Pulse 80; Resp 17 S; Pulse Ox 100% on R/A; cc3 06:30 BP 120 / 64; Pulse 77; Resp 17 S; Pulse Ox 100% ; cc3 07:31 BP 110 / 70; Pulse 75; Resp 18; Pulse Ox 100% on R/A; hj 02:34 Body Mass Index 30.71 (91.63 kg, 172.72 cm) la1 ED Course: 02:11 Patient arrived in ED. es 02:24 Rosalina Vigil is Primary Nurse. cc3 02:24 Vidal Bañuelos MD is Attending Physician. tw4 02:24 Patient has correct armband on for positive identification. Bed in low position. Call cc3 light in reach. Side rails up X 1. Pulse ox on. NIBP on. 02:34 Triage completed. la1 02:34 Arm band placed on right wrist. la1 03:50 Inserted saline lock: 20 gauge in right antecubital area, using aseptic technique. cc3 Blood collected. 06:40 CT Abd/Pelvis - Without Cont In Process Unspecified. EDMS 07:00 Report given to CORAZON Mcghee. cc3 07:08 Taz Lisa RN is Primary Nurse. hj 07:30 No provider procedures requiring assistance completed. IV discontinued, intact, hj bleeding controlled, No redness/swelling at site. Pressure dressing applied. Administered Medications: 04:55 CANCELLED (Duplicate Order): Zofran 4 mg IVP once; over 2 minutes cc3 04:55 Drug: morphine 4 mg Route: IVP; Site: right antecubital; cc3 05:30 Follow up: Response: No adverse reaction; Pain is decreased cc3 04:56 CANCELLED (Duplicate Order): morphine 4 mg IVP once cc3 05:00 Drug: Zofran 4 mg Route: IVP; Site: right antecubital; cc3 05:30 Follow up: Response: No adverse reaction; Nausea is decreased cc3 Outcome: 07:20 Discharge ordered by MD. dewey 07:31 Discharged to home ambulatory, with family. 07:31 Condition: stable 07:31 Discharge instructions given to patient, family, Instructed on discharge instructions, follow up and referral plans. medication usage, Demonstrated understanding of instructions, follow-up care, medications, Prescriptions given X 2. 07:33 Patient left the ED. Signatures: Dispatcher [employer] Yennifer Jama Lee, RN RN la1 Taz Lisa RN RN hj Wadley, Terrence, MD MD tw4 Rosalina Vigil cc3
[2018-08-08 08:23] VITALS: O2SAT 100
[2018-08-08 08:26] VITALS: BP 110/70
--- NOTE | 2018-08-08 12:41 | RAD REPORT ---
EXAM DESCRIPTION: CT - Abdomen Pelvis Wo Contrast - 08/08/2018 7:10 am CLINICAL HISTORY: 1 years Female, NEEDS PO CONTRAST PER PMD;Abd pain COMPARISON: February 05, 2017 TECHNIQUE: Contiguous axial images of the abdomen and pelvis were obtained followed by reconstructio n images. This exam was performed according to our departmental dose-optimization program, which incl udes automated exposure control, adjustment of the mA and/or kV according to patient size and/or use of iterative reconstruction technique. FINDINGS: Lung bases: Minimal subsegmental atelectasis or scarring of left lung base. Contrast seen within the distal esophagus may indicate reflux Heart: Visualized heart is within normal limits in size. Liver: Unremarkable. No focal liver lesion. Gallbladder: Cholecystectomy clips seen in gallbladder fossa. Spleen: Absent Pancreas: Pancreas is unremarkable. Adrenal glands: Within normal limits. Kidneys/ureters: Areas of scarring seen in the left renal upper pole. No hydronephrosis. No nephrolit hiasis. Bladder: Unremarkable. Pelvic organs: Coarse calcification within the uterus, likely calcified uterine fibroid. Vascular structures: Scattered atherosclerotic calcifications Peritoneum: No free fluid. Lymph nodes: No abnormal lymph nodes. Stomach/small bowel/colon: Small hiatal hernia. Stomach is otherwise unremarkable. Small bowel is unr emarkable. Colon is unremarkable. Appendix: No evidence of appendicitis. Bones: Mild spine degenerative changes. Soft tissues: Surgical changes seen within the left posterior soft tissues. No acute soft tissue abno rmality.. IMPRESSION: No acute intra-abdominal abnormality. Small hiatal hernia. Enteric contrast seen within the distal esophagus which may indicate reflux. Electronically signed by: Titus Johnson MD 08/08/2018 6:49 AM CDT Due to temporary technical issues with the PACS/Fluency reporting system, reports are being signed by the in house radiologist as a courtesy to ensure prompt reporting. The interpreting radiologist is f ully responsible for the content of the report.
== END 2018-08-08 07:33 | disposition home or self-care (01) ==
LOC: ER 02:06
DX: E11.22 Type 2 diabetes mellitus with diabetic chronic kidney disease (principal); I12.9 Hypertensive chronic kidney disease with stage 1 through stage 4 chronic kidney disease, or unspecified chronic kidney disease; N18.9 Chronic kidney disease, unspecified; N17.9 Acute kidney failure, unspecified; I50.9 Heart failure, unspecified; Z79.82 Long term (current) use of aspirin; Z79.4 Long term (current) use of insulin; Z88.2 Allergy status to sulfonamides
CPT/HCPCS: 85025; 80048; 36415; 80076; 83690; 74176; 96375; 96374; 99284; J2405; 81003; 81015

== ENCOUNTER 2018-10-05 06:29 | Day surgery (SDC) | payer OTHER ==
--- NOTE | 2018-10-04 15:28 | RAD REPORT ---
EXAM DESCRIPTION: RAD - Chest Pa And Lat (2 Views) - 10/04/2018 3:22 pm CLINICAL HISTORY: Preop chest, pending laparoscopic abdominal surgery COMPARISON: September 16 TECHNIQUE: PA and lateral views of the chest were obtained. FINDINGS: The lungs are clear. Lung markings similar to comparison. Left-sided pacemaker is in plac e. Heart size is normal and central vasculature is within normal limits. No pleural effusion or pneu mothorax seen. No acute bony finding noted. No aortic abnormality. No significant change from comp arison. IMPRESSION: No acute cardiopulmonary process.
[2018-10-04 15:34] LABS: Potassium 3.6 mmol/L (3.5-5.1)
[2018-10-04 16:13] LABS: Absolute Lymphocytes (CBC) 3.9 K/uL (0.7-4.9); Eosinophils % 1.6 % (0-4.4); Hematocrit 34.6 % (36.0-45.0); Lymphocytes % 34.6 % (15.3-44.8); MPV 8.3 fL (7.6-11.3); Monocytes % 9.1 % (3.3-12.3); RBC Red Blood Cell Count 3.69 M/uL (3.86-4.86)
--- NOTE | 2018-10-04 17:48 | EKG ---
Test Date: 2018-10-04 Test Time: 15:12:26 First Aid Attendant: MANOJ MEASUREMENT RESULTS: Intervals: Rate: 69 VA: 208 QRSD: 142 QT: 440 QTc: 471 [place]: P: 102 VA: 208 QRS: -59 T: 91 INTERPRETIVE STATEMENTS: Atrial-Ventricular Dual-Paced rhythm with occasion atrial sensed ventricular paced complexes Compared to ECG 09/17/2017 03:06:17 No significant changes Electronically Signed On 10-04-18 17:47:31 CDT by Orlando Ding
[2018-10-05] MEDS ORDERED: NA CHLORIDE 0.9% 1,000 ML ONE ×2 (06:59→08:22)
[2018-10-05] MEDS ORDERED: FENTANYL CITR 100 MCG/2 ML ONE (07:22)
[2018-10-05] MEDS ORDERED: MIDAZOLAM HCL 2 MG/2 ML INJ ONE (07:22)
[2018-10-05] MEDS ORDERED: PROPOFOL 200 MG/20 ML VIAL IV ONE (07:22)
[2018-10-05] MEDS ORDERED: LIDOCAINE 2% MPF 5 ML VIAL ONE (07:22)
[2018-10-05] MEDS ORDERED: ONDANSETRON 4 MG/2 ML VIAL ONE ×2 (07:23→09:16)
[2018-10-05] MEDS ORDERED: GLYCOPYRROLATE 0.2 MG/ML SYR ONE (07:24)
[2018-10-05] MEDS ORDERED: NEOSTIGMINE 1 MG/ML -10 ML VIAL ONE (07:26)
[2018-10-05] MEDS ORDERED: ROCURONIUM 50 MG/5 ML VIAL IV ONE (07:26)
[2018-10-05] MEDS ORDERED: BUPIVACAINE 0.5% PF 10 ML VIAL ONE (07:30)
[2018-10-05] MEDS ORDERED: CEFOXITIN/SWI 1gm 1 GM/10 ML SYR ONE (07:41)
[2018-10-05] MEDS ORDERED: EPHEDRINE SULF 50 MG/ML VIAL ONE (08:06)
[2018-10-05] MEDS: HYDROMORPHONE HCL 1 MG/ML INJ ONE ×2 (08:35→08:40)
[2018-10-05] MEDS: HYDROMORPHONE HCL 2 MG/ML inj ONE ×4 (08:50→09:08)
--- NOTE | 2018-10-05 09:00 | P.BOP ---
Preoperative diagnosis: intractable abdominal pain Postoperative diagnosis: extensive intrabdominal adhesions Primary procedure: Diagnostic laparoscopy Secondary procedure: Laparoscopic lysis of adhesions Medical Claims Analyst: DRE ALLEN ([employer] ACCESS DEVELOPER) Estimated blood loss: <10cc Specimen: none Findings: see dictation Anesthesia: General Complications: None Transferred to: Recovery Room Condition: Good
[2018-10-05 09:14] VITALS: TEMP 98.1
[2018-10-05 09:55] VITALS: O2SAT 95
[2018-10-05] MEDS ORDERED: HYDROCODONE/APAP 7.5/325 MG TAB ONE (09:58)
[2018-10-05 11:33] VITALS: BP 112/52
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
--- NOTE | 2018-10-05 18:56 | DS ---
Date of Discharge: 10/05/2018 Diagnoses: Intractable abdominal pain. Extensive intraabdominal adhesions. Procedures: Diagnostic laparoscopy, laparoscopic lysis of adhesions. Disposition: Home. Instructions: Activity as tolerated. No heavy lifting. Follow up in my office in 1 week. Call for appointment [phone]. Keep area dry for 48 hours, then may shower. Keep Steri-Strips intact. Medications: See orders. SONI/MODL Voice ID: [id number] Report ID: [id number]
== END 2018-10-05 11:30 | disposition home or self-care (01) ==
LOC: OR 06:29
PROVIDERS: ATTEND Surgery
PROC: 0DNU4ZZ Release Omentum, Percutaneous Endoscopic Approach (ICD-10-PCS; principal; 2018-10-05 07:30)
DX: K66.0 Peritoneal adhesions (postprocedural) (postinfection) (principal); Z87.828 Personal history of other (healed) physical injury and trauma; E11.9 Type 2 diabetes mellitus without complications; I11.9 Hypertensive heart disease without heart failure; Z79.4 Long term (current) use of insulin; Z79.82 Long term (current) use of aspirin; Z79.899 Other long term (current) drug therapy
CPT/HCPCS: 49329; 93005; 85025; 80048; 36415; 82962 ×2; 71046; J2704; J2710; J2250; J1170 ×2; J3010; J7030 ×2; J2405 ×2

== ENCOUNTER 2019-02-18 13:28 | Observation (INO) | payer OTHER ==
[2019-02-18] MEDS ORDERED: ONDANSETRON 4 MG/2 ML VIAL ONE ×2 (14:13→21:13)
[2019-02-18] MEDS ORDERED: MEPERIDINE HCL 25 MG/0.5 ML ONE (14:13)
[2019-02-18 15:13] LABS: ALT/SGPT 23 U/L (12-78); AST/SGOT 28 U/L (15-37); Albumin 3.5 g/dL (3.4-5.0); Alkaline Phosphatase 81 U/L (45-117); BUN Blood Urea Nitrogen 30 mg/dL (7-18); Bicarbonate 25 mmol/L (21-32); Bilirubin Direct < 0.1 mg/dL (0-0.2); Bilirubin Total 0.3 mg/dL (0.2-1.0); Glucose Level 166 mg/dL (74-106); Lipase 330 U/L (73-393); Magnesium 1.9 mg/dL (1.8-2.4); NT PRO-BNP 743 pg/mL (<125); Potassium 4.3 mmol/L (3.5-5.1); Sodium Level 139 mmol/L (136-145); Troponin (Emerg Dept Use Only) 0.09 ng/mL (0.0-0.045)
[2019-02-18 15:24] LABS: Absolute Lymphocytes (CBC) 4.1 K/uL (0.7-4.9); Basophils % 1.3 % (0-1.3); Hematocrit 31.6 % (36.0-45.0); Lymphocytes % 34.7 % (15.3-44.8); MPV 8.6 fL (7.6-11.3); RBC Red Blood Cell Count 3.46 M/uL (3.86-4.86)
--- NOTE | 2019-02-18 16:04 | ER ---
Nurse's Notes [facility] Name: Destiny Salguero Age: 59 yrs Sex: Female : 1960 Arrival Date: 02/18/2019 Time: 13:30 Bed 7 Private MD: Jessica Jones Diagnosis: Shortness of breath Presentation: 02/18 13:38 Presenting complaint: Patient states: "Shortness of breath, cough, and spitting up aj1 stuff. Its been going on for a while and I've counted it to allergies but I'm very short of breath. I still have pain on the right side of my stomach. Dr. Murray said I have a lot of scar tissue, but I don't feel good" Reports productive cough and congestion for the past month, reports the shortness of breath started a week ago but it worse today. Reports having chills at home. Transition of care: patient was not received from another setting of care. Onset of symptoms was 2018. Risk Assessment: Do you want to hurt yourself or someone else? Patient reports no desire to harm self or others. Care prior to arrival: None. 13:38 Method Of Arrival: Wheelchair aj1 13:50 Initial Sepsis Screen: Does the patient meet any 2 criteria? No. Patient's initial tw2 sepsis screen is negative. Does the patient have a suspected source of infection? No. Patient's initial sepsis screen is negative. 13:50 Acuity: MARYBEL 3 tw2 Triage Assessment: 13:44 General: Appears in no apparent distress. uncomfortable, Behavior is cooperative, aj1 anxious, crying. Pain: Complains of pain in back, right upper quadrant and neck Pain currently is 10 out of 10 on a pain scale. Neuro: Level of Consciousness is awake, alert, obeys commands. Cardiovascular: Patient's skin is warm and dry. Respiratory: Reports shortness of breath cough that is productive, Onset: The symptoms/episode began/occurred one month ago, the patient has mild shortness of breath. Historical: - Allergies: 13:44 Sulfasalazine (Vomiting); aj1 - Home Meds: 13:44 bumetanide 2 mg Oral tab 1 tab once daily [Active]; magnesium oxide 400 mg Oral tab aj1 daily [Active]; simvastatin 20 mg Oral tab 1 tab nightly [Active]; lisinopril 5 mg Oral tab 1 tab once daily [Active]; carvedilol 6.25 mg Oral tab 1 tab 2 times per day [Active]; aspirin 81 mg Oral TbEC 1 tab once daily [Active]; omeprazole 40 mg Oral cpDR once daily [Active]; sertraline 50 mg oral tab 1 tab once daily [Active]; Novolin N 100 unit/mL Sub-Q tab [Active]; Novolin R Sub-Q [Active]; - PMHx: 13:44 Anemia; CHF; Diabetes - IDDM; Hyperlipidemia; Hypertension; Rheumatoid Arthritis; aj1 sciatica; - Immunization history:: Flu vaccine is not up to date. - Social history:: Smoking status: Patient/guardian denies using tobacco. - Ebola Screening: : Patient denies travel to an Ebola-affected area in the 21 days before illness onset. - Family history:: not pertinent. - Hospitalizations: : No recent hospitalization is reported. Screenin:50 Abuse screen: Denies threats or abuse. Nutritional screening: No deficits noted. tw2 Tuberculosis screening: No symptoms or risk factors identified. Fall Risk Secondary diagnosis (15 points) impaired mobility. Assessment: 13:50 Neuro: Level of Consciousness is awake, alert, obeys commands, Oriented to person, tw2 place, time, situation. Cardiovascular: Heart tones S1 S2 Patient's skin is warm and dry. Rhythm is regular. Respiratory: Reports shortness of breath cough that is productive, Airway is patent Respiratory effort is even, unlabored, Respiratory pattern is regular, symmetrical, Breath sounds are clear bilaterally. GI: Abdomen is round non-distended, obese, Bowel sounds present X 4 quads. : No signs and/or symptoms were reported regarding the genitourinary system. EENT: No signs and/or symptoms were reported regarding the EENT system. EENT: Reports nasal congestion nasal discharge. Derm: No signs and/or symptoms reported regarding the dermatologic system. Musculoskeletal: Range of motion: intact in all extremities. 15:20 Reassessment: Patient appears in no apparent distress at this time. No changes from tw2 previously documented assessment. Patient and/or family updated on plan of care and expected duration. Pain level reassessed. Patient is alert, oriented x 3, equal unlabored respirations, skin warm/dry/pink. 16:15 Reassessment: Patient appears in no apparent distress at this time. No changes from hb previously documented assessment. Patient and/or family updated on plan of care and expected duration. Pain level reassessed. Patient is alert, oriented x 3, equal unlabored respirations, skin warm/dry/pink. 17:02 Reassessment: Patient appears in no apparent distress at this time. No changes from tw2 previously documented assessment. Patient and/or family updated on plan of care and expected duration. Pain level reassessed. Patient is alert, oriented x 3, equal unlabored respirations, skin warm/dry/pink. 22:16 Reassessment: No changes from previously documented assessment. Patient and/or family tl1 updated on plan of care and expected duration. Pain level reassessed. Patient is alert, oriented x 3, equal unlabored respirations, skin warm/dry/pink. pt stated she did not want to stay if there was no beds upstairs. Pt educated on the need to stay and to return immediately with worsening of symptoms. General: Appears in no apparent distress. uncomfortable. Pain: Complains of pain in abdomen and back. Neuro: Level of Consciousness is awake, alert, obeys commands, Oriented to person, place, time, situation. Cardiovascular: Heart tones S1 S2 Patient's skin is warm and dry. Respiratory: Reports shortness of breath on exertion cough that is productive, Airway is patent Respiratory effort is even, unlabored, Respiratory pattern is regular, symmetrical, Breath sounds are clear bilaterally. GI: Abdomen is round non-distended, obese, Bowel sounds present X 4 quads. : No signs and/or symptoms were reported regarding the genitourinary system. Vital Signs: 13:44 BP 109 / 50; Pulse 73; Resp 18; Temp 98.3; Pulse Ox 100% on R/A; Weight 97.52 kg (R); aj1 Height 5 ft. 8 in. (172.72 cm) (R); Pain 10/10; 15:20 BP 119 / 53; Pulse 65; Resp 17; Pulse Ox 100% on R/A; tw2 16:15 BP 122 / 68; Pulse 64; Resp 16; Pulse Ox 100% on R/A; hb 17:01 BP 130 / 72; Pulse 60; Resp 17; Pulse Ox 100% on R/A; tw2 19:49 BP 108 / 50; Pulse 59; Resp 17; Pulse Ox 100% ; tl1 20:45 BP 120 / 70; Pulse 60; Resp 17; Temp 98.8; Pulse Ox 100% on R/A; tl1 21:39 BP 136 / 71; Pulse 61; Resp 17; Temp 98.5; Pulse Ox 100% on R/A; Pain 4/10; tl1 13:44 Body Mass Index 32.69 (97.52 kg, 172.72 cm) aj1 ED Course: 13:30 Patient arrived in ED. ag5 13:31 Jessica Jones is Private Physician. ag5 13:44 Arm band placed on Patient placed in an exam room. aj1 13:49 Concepción Lynn, [place] is Primary Nurse. tw2 13:50 Triage completed. tw2 13:50 Bed in low position. Call light in reach. Adult w/ patient. sergeant at arms on. Pulse tw2 ox on. NIBP on. 13:52 Markie Wong MD is Attending Physician. rn 14:40 Missed attempt(s): 22 gauge in right forearm. blood collected. Bleeding controlled, tw2 band aid applied, catheter tip intact. Missed attempt(s): 22 gauge in right forearm. Bleeding controlled, band aid applied, catheter tip intact. 14:41 Missed attempt(s): 22 gauge in right antecubital area. per CORAZON Quinteros. Bleeding tw2 controlled, band aid applied, catheter tip intact. Missed attempt(s): 22 gauge in left antecubital area. per [place] Quinteros. Bleeding controlled, band aid applied, catheter tip intact. 14:52 Missed attempt(s): 22 gauge in left forearm. Bleeding controlled, band aid applied, aa5 catheter tip intact. 14:55 Initial lab(s) drawn, by wv, sent to lab. Inserted saline lock: 20 gauge in right aa5 antecubital area, using aseptic technique. 15:11 XRAY Chest Pa And Lat (2 Views) In Process Unspecified. EDMS 16:03 Juni العراقي MD is Hospitalizing Provider. rn 21:33 No provider procedures requiring assistance completed. IV discontinued, intact, tl1 bleeding controlled, No redness/swelling at site. Pressure dressing applied. 22:23 Jessica Jones is Hospitalizing Provider. tl1 22:23 Hospitalizing Provider role handed off by Orbert, U tl1 22:23 Juni العراقي MD is Hospitalizing Provider. tl1 Administered Medications: 15:01 Drug: Demerol 25 mg Route: IVP; Site: right antecubital; hb 15:30 Follow up: Response: No adverse reaction; Pain is decreased; RASS: Alert and Calm (0) tw2 15:01 Drug: Zofran 4 mg Route: IVP; Site: right antecubital; hb 16:00 Follow up: Response: No adverse reaction; Nausea is decreased tw2 18:02 Drug: Rocephin - (cefTRIAXone) 1 grams {Note: IVP available only from pharmacy.} Route: tw2 IVPB; Infused Over: 5 mins; Site: right antecubital; 18:08 Follow up: Response: No adverse reaction; IV Status: Completed infusion tw2 18:29 Drug: AZITHromycin 500 mg Route: IVPB; Infused Over: 1 hrs; Site: right antecubital; tw2 19:30 Follow up: IV Status: Completed infusion; IV Intake: 250ml tl1 21:20 Drug: Zofran 4 mg Route: IVP; Infused Over: 2 mins; Site: right antecubital; tl1 21:34 Follow up: Response: No adverse reaction; No change in condition tl1 21:20 Drug: morphine 2 mg Route: IVP; Infused Over: 2 mins; Site: right antecubital; tl1 21:34 Follow up: Response: No adverse reaction; No change in condition; Pain is unchanged, tl1 physician notified; RASS: Alert and Calm (0) Intake: 19:30 IV: 250ml; Total: 250ml. tl1 Outcome: 16:03 Decision to Hospitalize by Provider. rn 21:33 AMA AMA form signed tl1 21:33 Condition: stable 21:33 Instructed on the need for admit. 22:23 Decision to Hospitalize by Provider. tl1 22:24 Patient left the ED. tl1 Signatures: Dispatcher [employer] EDMS Lola Mann RN RN aj1 Markie Wong MD MD rn Calderon, Audri RN RN aa5 Livia Seay RN RN tl1 Neli Durham RN RN hb Wise, Tara RN RN tw2 Anushka Rivero [facility]
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
--- NOTE | 2019-02-18 17:37 | RAD REPORT ---
EXAM DESCRIPTION: Nichole Raphael And Blessing (2 Views)02/18/2019 3:13 pm CLINICAL HISTORY: Chest pain COMPARISON: September 2018 FINDINGS: Mild left lower lobe opacities best seen on the frontal view Right lung appears clear The heart is normal size. Pacemaker leads are in place. IMPRESSION: Mild left lower lobe opacities may represent pneumonia, atelectasis or scarring
[2019-02-18] MEDS ORDERED: CEFTRIAXONE/SWI 1gm 1 GM/10 ML SYR ONE (18:01)
[2019-02-18] MEDS ORDERED: AZITHROMYCIN IV 500 MG in NA CHLORIDE 0.9% 250 ML IVPB ONE (19:00)
[2019-02-18] MEDS ORDERED: MORPHINE 2 MG/ML SYR ONE (21:13)
[2019-02-18] MEDS ORDERED: ALBUTEROL 2.5 MG/3 ML NEB SOL NEB PRN (22:08)
[2019-02-18] MEDS ORDERED: NA CHLORIDE 0.9% 1,000 ML IV SCH (22:08)
[2019-02-18] MEDS ORDERED: ONDANSETRON 4 MG/2 ML VIAL IV PRN (22:08)
[2019-02-18] MEDS ORDERED: INSULIN -REGULAR HUMAN 50 UNIT/0.5 ML ML SQ SCH (22:08)
[2019-02-18] MEDS ORDERED: METHYLPREDNISOLONE 40 MG INJ IV ONE (22:08)
[2019-02-18] MEDS ORDERED: ACETAMINOPHEN 500 MG TAB PO PRN (22:08)
[2019-02-18 22:34] VITALS: O2SAT 100
[2019-02-18 22:43] VITALS: BP 136/71; TEMP 98.5
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
--- NOTE | 2019-02-19 06:16 | EKG ---
Test Date: 2019-02-18 Test Time: 14:10:53 Photoengraving Retoucher: MEASUREMENT RESULTS: Intervals: Rate: 62 CT: 164 QRSD: 174 QT: 466 QTc: 472 Erwin: P: 73 CT: 164 QRS: -69 T: 52 INTERPRETIVE STATEMENTS: Atrial-sensed ventricular-paced rhythm Abnormal ECG Compared to ECG 10/04/2018 15:12:26 AV dual-paced complex(es) or rhythm no longer present Electronically Signed On 02-19-19 06:15:31 CDT by Orlando Ding
[2019-02-19] MEDS ORDERED: ENOXAPARIN 40 MG/0.4 ML SQ SCH (09:00)
== END 2019-02-18 22:15 | disposition left against medical advice (07) ==
LOC: ER 13:28 → ERHOLD 17:02
PROVIDERS: ADMIT Family Medicine; ATTEND Family Medicine
DX: R06.02 Shortness of breath (principal); R05 Cough; R79.89 Other specified abnormal findings of blood chemistry; D72.829 Elevated white blood cell count, unspecified; R10.9 Unspecified abdominal pain; I13.0 Hypertensive heart and chronic kidney disease with heart failure and stage 1 through stage 4 chronic kidney disease, or unspecified chronic kidney disease; E11.22 Type 2 diabetes mellitus with diabetic chronic kidney disease; N18.9 Chronic kidney disease, unspecified; I50.32 Chronic diastolic (congestive) heart failure; M06.9 Rheumatoid arthritis, unspecified; Z53.29 Procedure and treatment not carried out because of patient's decision for other reasons; R01.1 Cardiac murmur, unspecified; Z95.0 Presence of cardiac pacemaker; E78.2 Mixed hyperlipidemia
CPT/HCPCS: 96365; 93005; 87040 ×2; 87070; 85025; 80048; 36415; 83735; 80076; 87081; 84484; 83690; 84145; 83880; 87804 ×2; 71046; 96375; 99284; J0456; J2270; J2175; J0696; J7030; J2405 ×2; G0378 ×2

== ENCOUNTER 2019-02-22 16:57 | Emergency (ER) | payer OTHER ==
[2019-02-22 18:06] LABS: Absolute Lymphocytes (CBC) 4.5 K/uL (0.7-4.9); Basophils % 0.4 % (0-1.3); Hematocrit 30.9 % (36.0-45.0); Lymphocytes % 37.9 % (15.3-44.8); RBC Red Blood Cell Count 3.38 M/uL (3.86-4.86)
--- NOTE | 2019-02-22 19:15 | RAD REPORT ---
EXAM DESCRIPTION: Nichole Craven (2 Views)02/22/2019 5:42 pm CLINICAL HISTORY: sob COMPARISON: 02/18/2019 FINDINGS: The lungs appear clear of acute infiltrate. The heart is normal size Pacemaker leads are in place. IMPRESSION: No acute abnormalities displayed
[2019-02-22] MEDS ORDERED: ONDANSETRON 4 MG/2 ML VIAL ONE (19:26)
[2019-02-22] MEDS ORDERED: FENTANYL CITR 100 MCG/2 ML ONE (19:26)
[2019-02-22 19:32] LABS: Magnesium 2.1 mg/dL (1.8-2.4)
--- NOTE | 2019-02-22 19:40 | ER ---
Nurse's Notes [facility] Name: Destiny Salguero Age: 59 yrs Sex: Female : 1960 Arrival Date: 02/22/2019 Time: 16:59 Bed 24 Private MD: Diagnosis: Acute upper respiratory infection, unspecified Presentation: 02/22 17:11 Presenting complaint: Patient states: "I was just here but I checked myself out because aa5 you guys didn't have any rooms upstairs". Pt was recently admitted for Shortness of breath and was ERHOLD. Pt reports pt is taking Azithromycin. Pt was given Rocephin IM on 02/20/19 at doctor's office. Transition of care: patient was not received from another setting of care. Onset of symptoms was February 2019. Risk Assessment: Do you want to hurt yourself or someone else? Patient reports no desire to harm self or others. Initial Sepsis Screen: Does the patient meet any 2 criteria? No. Patient's initial sepsis screen is negative. Does the patient have a suspected source of infection? No. Patient's initial sepsis screen is negative. Care prior to arrival: None. 17:11 Method Of Arrival: Wheelchair aa5 17:11 Acuity: MARYBEL 3 aa5 Historical: - Allergies: 17:13 Sulfasalazine (Vomiting); aa5 - PMHx: 17:13 Anemia; CHF; Diabetes - IDDM; Hyperlipidemia; Hypertension; Rheumatoid Arthritis; aa5 sciatica; - Immunization history:: Flu vaccine is up to date. - Social history:: Smoking status: Patient/guardian denies using tobacco. - Ebola Screening: : No symptoms or risks identified at this time. Screenin:00 Abuse screen: Denies threats or abuse. Denies injuries from another. Nutritional ca1 screening: No deficits noted. Tuberculosis screening: No symptoms or risk factors identified. Fall Risk IV access (20 points). Assessment: 18:00 General: Appears in no apparent distress. comfortable, Behavior is calm, cooperative, ca1 appropriate for age. Pain: Complains of pain in mid-sternal area Pain currently is 10 out of 10 on a pain scale. Quality of pain is described as sharp, Pain began 4 days ago Aggravated by coughing. Neuro: Level of Consciousness is awake, alert, obeys commands, Oriented to person, place, time, situation, Appropriate for age. Cardiovascular: Heart tones S1 S2 present Capillary refill < 3 seconds Patient's skin is warm and dry. Respiratory: Reports shortness of breath since 4 days ago cough that is non-productive, since a week ot 2 ago Airway is patent Respiratory effort is even, unlabored, Respiratory pattern is regular, symmetrical, Breath sounds are clear bilaterally. GI: Abdomen is flat, non-distended, Bowel sounds present X 4 quads. Abd is soft and non tender X 4 quads. Reports nausea, vomiting. : No deficits noted. No signs and/or symptoms were reported regarding the genitourinary system. EENT: Reports nasal congestion. Derm: Skin is intact, is healthy with good turgor, Skin is pink, warm \\T\\ dry. Musculoskeletal: Circulation, motion, and sensation intact. Capillary refill < 3 seconds, Range of motion: intact in all extremities. 19:30 Reassessment: Patient appears in no apparent distress at this time. Patient and/or ca1 family updated on plan of care and expected duration. Pain level reassessed. Patient is alert, oriented x 3, equal unlabored respirations, skin warm/dry/pink. Vital Signs: 17:13 BP 118 / 53; Pulse 69; Resp 18 S; Temp 99.0(TE); Pulse Ox 100% on R/A; aa5 18:00 BP 107 / 47; Pulse 59; Resp 20 S; Pulse Ox 100% on R/A; ca1 19:30 BP 121 / 54; Pulse 64; Resp 17 S; Pulse Ox 100% on R/A; ca1 ED Course: 16:59 Patient arrived in ED. as 17:11 Arm band placed on. aa5 17:13 Triage completed. aa5 17:18 Daily Cullen F[facility]-C [facility]. kb 17:18 Amol Lucio MD is Attending Physician. kb 17:35 Lisa Watson RN is Primary Nurse. ca1 17:40 X-ray completed. Patient tolerated procedure well. Patient moved to radiology via kw wheelchair. Patient moved back from radiology. 17:41 Chest Pa And Lat (2 Views) XRAY In Process Unspecified. EDMS 18:00 Patient has correct armband on for positive identification. Placed in gown. Bed in low ca1 position. Call light in reach. Side rails up X2. Pulse ox on. NIBP on. Warm blanket given. 18:00 No provider procedures requiring assistance completed. Initial lab(s) drawn, by me, ca1 sent to lab. Inserted saline lock: 22 gauge in right antecubital area, using aseptic technique. Blood collected. 18:37 Lab(s) recollected, by computer laboratory technician, sent to lab. ca1 19:47 IV discontinued, intact, bleeding controlled, No redness/swelling at site. Pressure ca1 dressing applied. Administered Medications: 19:26 Drug: Zofran 4 mg Route: IVP; Site: right antecubital; ca1 19:41 Follow up: Response: No adverse reaction; Nausea is decreased ca1 19:30 Drug: fentaNYL (PF) 25 mcg Route: IVP; Site: right antecubital; ca1 19:48 Follow up: Response: No adverse reaction; Pain is decreased ca1 Outcome: 19:39 Discharge ordered by . camryn 19:47 Discharged to home via wheelchair. ca1 19:47 Condition: stable 19:47 Discharge instructions given to patient, family, Instructed on discharge instructions, follow up and referral plans. Demonstrated understanding of instructions, follow-up care. 19:58 Patient left the ED. ca1 Signatures: Dispatcher [employer] EDMS Daily Cullen, HELMET COVERER-C HELMET COVERER-Esperanza Neal Audri, RN RN aa5 Samia Hanson Cheryl, RN RN ca1 Corrections: (The following items were deleted from the chart) 17:15 17:11 Presenting complaint: Patient states: "I was just here but I checked myself out aa5 because you guys didn't have any rooms upstairs". Pt was recently admitted for Shortness of breath and was ERHOLD. Pt reports pt is taking Azithromycin. aa5
--- NOTE | 2019-02-22 19:40 | EDPHYS ---
Physician Documentation [facility] Name: Destiny Salguero Age: 59 yrs Sex: Female : 1960 Arrival Date: 02/22/2019 Time: 16:59 Bed 24 Private MD: ANDERSON Physician Amol Lucio HPI: 02/22 17:34 This 59 yrs old Black Female presents to ER via Wheelchair with complaints of kb Congestion, Pain All Over. 17:34 The patient has shortness of breath at rest, and the patient has a history of CHF. kb Onset: The symptoms/episode began/occurred last week. Duration: The symptoms are continuous, and are unchanged since they started. The patient's shortness of breath is aggravated by exertion. Associated signs and symptoms: Pertinent positives: non-productive cough, nausea. Severity of symptoms: At their worst the symptoms were mild moderate in the emergency department the symptoms are unchanged. The patient has experienced similar episodes in the past. The patient has been recently seen by a physician:. Pt reports shortness of breath, cough, chills and body aches since last week. Came in on 02/18 and was admitted for obs for shortness of breath, but signed out AMA because they didn't have any beds upstairs. States she is still having the same symptoms. Followed up with Dr Truong this week and was given a shot of Rocephin and prescription for zithromax, but she still doesn't fell any better. Historical: - Allergies: 17:13 Sulfasalazine (Vomiting); aa5 - PMHx: 17:13 Anemia; CHF; Diabetes - IDDM; Hyperlipidemia; Hypertension; Rheumatoid Arthritis; aa5 sciatica; - Immunization history:: Flu vaccine is up to date. - Social history:: Smoking status: Patient/guardian denies using tobacco. - Ebola Screening: : No symptoms or risks identified at this time. ROS: 17:30 ENT: Negative for injury, pain, and discharge, Neck: Negative for injury, pain, and kb swelling, Cardiovascular: Negative for chest pain, palpitations, and edema, Abdomen/GI: Negative for vomiting, diarrhea, and constipation. +chronic abdominal pain, nausea Back: Negative for injury and pain, : Negative for injury, bleeding, discharge, and swelling, MS/Extremity: Negative for injury and deformity, Skin: Negative for injury, rash, and discoloration, Neuro: Negative for headache, weakness, numbness, tingling, and seizure. 17:30 Respiratory: Positive for cough, dyspnea on exertion, shortness of breath. Exam: 17:33 Constitutional: This is a well developed, well nourished patient who is awake, alert, kb and in no acute distress. Head/Face: Normocephalic, atraumatic. ENT: Nares patent. No nasal discharge, no septal abnormalities noted. Tympanic membranes are normal and external auditory canals are clear. Oropharynx with no redness, swelling, or masses, exudates, or evidence of obstruction, uvula midline. Mucous membranes moist. Neck: Trachea midline, no thyromegaly or masses palpated, and no cervical lymphadenopathy. Supple, full range of motion without nuchal rigidity, or vertebral point tenderness. No Meningismus. Chest/axilla: Normal chest wall appearance and motion. Nontender with no deformity. No lesions are appreciated. Cardiovascular: Regular rate and rhythm with a normal S1 and S2. No gallops, murmurs, or rubs. Normal PMI, no JVD. No pulse deficits. Respiratory: Lungs have equal breath sounds bilaterally, clear to auscultation and percussion. No rales, rhonchi or wheezes noted. No increased work of breathing, no retractions or nasal flaring. Abdomen/GI: Soft, non-tender, with normal bowel sounds. No distension or tympany. No guarding or rebound. No evidence of tenderness throughout. Skin: Warm, dry with normal turgor. Normal color with no rashes, no lesions, and no evidence of cellulitis. MS/ Extremity: Pulses equal, no cyanosis. Neurovascular intact. Full, normal range of motion. Neuro: Awake and alert, GCS 15, oriented to person, place, time, and situation. Cranial nerves II-XII grossly intact. Motor strength 5/5 in all extremities. Sensory grossly intact. Cerebellar exam normal. Normal gait. Vital Signs: 17:13 BP 118 / 53; Pulse 69; Resp 18 S; Temp 99.0(TE); Pulse Ox 100% on R/A; aa5 18:00 BP 107 / 47; Pulse 59; Resp 20 S; Pulse Ox 100% on R/A; ca1 19:30 BP 121 / 54; Pulse 64; Resp 17 S; Pulse Ox 100% on R/A; ca1 MDM: 17:18 Patient medically screened. kb 17:32 Data reviewed: vital signs, nurses notes. Data interpreted: Pulse oximetry: on room air kb is 100 %. Interpretation: normal. 19:39 Counseling: I had a detailed discussion with the patient and/or guardian regarding: the kb historical points, exam findings, and any diagnostic results supporting the discharge/admit diagnosis, lab results, radiology results, the need for outpatient follow up, a family practitioner, to return to the emergency department if symptoms worsen or persist or if there are any questions or concerns that arise at home. 02/22 17:29 Order name: CBC with Diff; Complete Time: 18:11 kb 02/22 17:29 Order name: Basic Metabolic Panel; Complete Time: 19:34 kb 02/22 17:29 Order name: Chest Pa And Lat (2 Views) XRAY; Complete Time: 19:21 kb 02/22 17:29 Order name: BNP; Complete Time: 19:34 kb 02/22 17:29 Order name: Flu; Complete Time: 18:26 kb 02/22 17:30 Order name: Magnesium; Complete Time: 19:34 kb 02/22 17:29 Order name: IV Start; Complete Time: 18:05 kb 02/22 18:13 Order name: Labs - recollect needed; Complete Time: 18:59 gm Administered Medications: 19:26 Drug: Zofran 4 mg Route: IVP; Site: right antecubital; ca1 19:41 Follow up: Response: No adverse reaction; Nausea is decreased ca1 19:30 Drug: fentaNYL (PF) 25 mcg Route: IVP; Site: right antecubital; ca1 19:48 Follow up: Response: No adverse reaction; Pain is decreased ca1 Disposition: 02/23 07:52 Co-signature as Attending Physician, Amol Lucio MD I agree with the assessment and joanne plan of care. Disposition: 02/22/19 19:39 Discharged to Home. Impression: Acute upper respiratory infection, unspecified. - Condition is Stable. - Discharge Instructions: Upper Respiratory Infection, Adult, [id number], Viral Respiratory Infection, [id number]. - Medication Reconciliation Form, Thank You Letter, Antibiotic Education, Prescription Opioid Use form. - Follow up: Emergency Department; When: As needed; Reason: Worsening of condition. Follow up: Private Physician; When: 2 - 3 days; Reason: Recheck today's complaints, Continuance of care, Re-evaluation by your physician. Signatures: Dispatcher [employer] Daily Mayes, RUTH ANN ROPER-Amol Weems MD MD cha Calderon, Audri, RN RN aa5 Lynette Pfeiffer Lisa Watson RN RN ca1 Corrections: (The following items were deleted from the chart) 02/22 19:58 19:39 02/22/2019 19:39 Discharged to Home. Impression: Acute upper respiratory ca1 infection, unspecified. Condition is Stable. Forms are Medication Reconciliation Form, Thank You Letter, Antibiotic Education, Prescription Opioid Use. Follow up: Emergency Department; When: As needed; Reason: Worsening of condition. Follow up: Private Physician; When: 2 - 3 days; Reason: Recheck today's complaints, Continuance of care, Re-evaluation by your physician. kb
[2019-02-22 20:28] VITALS: TEMP 99; O2SAT 100
[2019-02-22 20:31] VITALS: BP 121/54
== END 2019-02-22 19:58 | disposition home or self-care (01) ==
LOC: ER 16:57
DX: J06.9 Acute upper respiratory infection, unspecified (principal); Z88.8 Allergy status to other drugs, medicaments and biological substances
CPT/HCPCS: 85025; 80048; 36415; 83735; 83880; 87804 ×2; 71046; 96375; 96374; 99284; J3010; J2405

== ENCOUNTER 2019-06-12 01:26 | Emergency (ER) | payer OTHER ==
--- OUTSIDE RECORDS SUMMARY | 2019-06-12 01:28 | XMS REPORT ---
:1960 [facility] Address [address] [place] [address] [address] [place] [address] Care Team Providers Name Role Phone Unavailable Unavailable Unavailable Problems This patient has no known problems. Allergies, Adverse Reactions, Alerts This patient has no known allergies or adverse reactions. Medications This patient has no known medications. Encounters Start End Encounter Admission Attending Care Care Encounter Date/Time Date/Time Type Type Clinicians Facility Department ID 2019-04-26 2019-04-26 Outpatient [id number] 07:22:00 07:22:00 Results Test Description Test Time Test Comments Text Results Atomic Results Result Comments SCR MAMM BILATERAL ELENA 2019-04-27 07:52:28 - SCR MAMM BILATERAL ELENA CAD CAD DIGITAL DIGITALBILATERAL DIGITAL SCREENING MAMMOGRAM 3D/2D WITH CAD: 04/25/2019CLINICAL: Asymptomatic. Digital breast tomosynthesis was performed in addition to routine CC and MLO views. Current mammographic images were evaluated by either a [employer] M-Vu or a [employer] ImageChecker CAD (computer aided detection system). Comparison is made to exams dated 06/17/2016 mammogram, 05/28/2014 mammogram, and 08/07/2008 mammogram - [facility]. The tissue of both breasts is predominantly fatty. There are benign vascular calcifications in both breasts. There also is a biopsy clip in the left breast. No suspicious mass, architectural distortion, malignant type calcification, or lymph node abnormality detected. Breast architecture is stable compared to prior exams.IMPRESSION: BENIGNThere is no mammographic evidence of malignancy. Resume annual screening mammography in one year. Arnold Doyle M.D. et/penrad:04/27/2019 07:52:28 Manager Msw: [place] BENEDICT RT(M), [facility] sent: BIRADS 1-2 Normal Mammogram BI-RADS: 2 Benign
--- NOTE | 2019-06-12 02:15 | EDPHYS ---
Physician Documentation [facility] Name: Destiny Salguero Age: 59 yrs Sex: Female : 1960 Arrival Date: 06/12/2019 Time: 01:28 Bed 2 Private MD: ED Physician Markie Wong HPI: 06/12 02:48 This 59 yrs old Black Female presents to ER via Ambulatory with complaints of Knee Pain.snw 02:48 This 59 yrs old Black Female presents to ER via Ambulatory with complaints of Knee Pain.snw 02:48 The patient presents with pain, that is chronic. The complaints affect the bilateral snw knees, behind left knee . Context: hx of RA, weather change. Onset: The symptoms/episode began/occurred chronic with exacerbations. Associated signs and symptoms: The patient has no apparent associated signs or symptoms. Severity of symptoms: At their worst the symptoms were moderate. The patient has experienced similar episodes in the past, chronically. The patient has been recently seen by a physician: with similar presenting complaints, and apparently given a diagnosis of constipation. Historical: - Allergies: 01:47 Sulfasalazine (Vomiting); rv - PMHx: 01:47 Anemia; CHF; Diabetes - IDDM; Hyperlipidemia; Hypertension; Rheumatoid Arthritis; rv sciatica; - PSHx: 01:47 Appendectomy; Cholecystectomy; Carpal Tunnel Repair; rv - Immunization history:: Adult Immunizations up to date. - Coronavirus screen:: The patient has NOT traveled to [place], [place], or [place] in the past 14 days. Proceed with normal triage process as indicated. The patient has NOT had contact with known/suspected case of Coronavirus? Proceed with normal triage procedures. - Social history:: Smoking status: Patient denies any tobacco usage or history of. - Ebola Screening: : No symptoms or risks identified at this time. ROS: 02:47 Constitutional: Negative for fever, chills, and weight loss, Eyes: Negative for injury, snw pain, redness, and discharge, ENT: Negative for injury, pain, and discharge, Neck: Negative for injury, pain, and swelling, Cardiovascular: Negative for chest pain, palpitations, and edema, Respiratory: Negative for shortness of breath, cough, wheezing, and pleuritic chest pain, Back: Negative for injury and pain, : Negative for injury, bleeding, discharge, and swelling, Skin: Negative for injury, rash, and discoloration, Neuro: Negative for headache, weakness, numbness, tingling, and seizure. 02:47 Abdomen/GI: Positive for abdominal pain, nausea, constipation, Negative for vomiting, diarrhea. 02:47 MS/extremity: Positive for pain, "everywhere". Exam: 02:43 Constitutional: This is a well developed, well nourished patient who is awake, alert, snw and in no acute distress. Head/Face: Normocephalic, atraumatic. Eyes: Pupils equal round and reactive to light, extra-ocular motions intact. Lids and lashes normal. Conjunctiva and sclera are non-icteric and not injected. Cornea within normal limits. Periorbital areas with no swelling, redness, or edema. ENT: Nares patent. No nasal discharge, no septal abnormalities noted. Tympanic membranes are normal and external auditory canals are clear. Oropharynx with no redness, swelling, or masses, exudates, or evidence of obstruction, uvula midline. Mucous membranes moist. Neck: Trachea midline, no thyromegaly or masses palpated, and no cervical lymphadenopathy. Supple, full range of motion without nuchal rigidity, or vertebral point tenderness. No Meningismus. Chest/axilla: Normal chest wall appearance and motion. Nontender with no deformity. No lesions are appreciated. Cardiovascular: Regular rate and rhythm with a normal S1 and S2. No gallops, murmurs, or rubs. Normal PMI, no JVD. No pulse deficits. Respiratory: Lungs have equal breath sounds bilaterally, clear to auscultation and percussion. No rales, rhonchi or wheezes noted. No increased work of breathing, no retractions or nasal flaring. 02:43 Back: No spinal tenderness. No costovertebral tenderness. Full range of motion. Skin: Warm, dry with normal turgor. Normal color with no rashes, no lesions, and no evidence of cellulitis. Neuro: Awake and alert, GCS 15, oriented to person, place, time, and situation. Cranial nerves II-XII grossly intact. Motor strength 5/5 in all extremities. Sensory grossly intact. Cerebellar exam normal. Normal gait. Psych: Awake, alert, with orientation to person, place and time. Behavior, mood, and affect are within normal limits. 02:43 Abdomen/GI: Exam negative for acute changes. 02:43 Musculoskeletal/extremity: Extremities: knees tender to palpation, distal pulses normal, joints thickened to hands, ROM: no acute changes, Circulation is intact in all extremities. Sensation intact. Vital Signs: 01:45 BP 117 / 61; Pulse 60; Resp 16; Temp 98; Pulse Ox 100% ; Weight 102.97 kg; Height 5 ft. rv 8 in. (172.72 cm); Pain 10/10; 01:45 Body Mass Index 34.51 (102.97 kg, 172.72 cm) rv MDM: 01:58 Patient medically screened. snw 02:43 Data reviewed: vital signs, nurses notes. Data interpreted: Pulse oximetry: on room air snw is 100 %. Interpretation: normal. Counseling: I had a detailed discussion with the patient and/or guardian regarding: the historical points, exam findings, and any diagnostic results supporting the discharge/admit diagnosis, the need for outpatient follow up, to return to the emergency department if symptoms worsen or persist or if there are any questions or concerns that arise at home. Special discussion: Based on the patient's Hx, exam, and Dx evaluation, there is no indication for emergent surgery or inpatient Tx. It is understood by the patient/guardian that if the Sx's persist or worsen they need to return immediately for re-evaluation. Based on the history and exam findings, there is no indication for further emergent testing or inpatient evaluation. I discussed with the patient/guardian the need to see the primary care provider for further evaluation of the symptoms. Administered Medications: 02:36 Not Given (Patient Refused): Magnesium Citrate Liquid 300 ml PO once ls4 02:36 Drug: fentaNYL (PF) 50 mcg Route: IM; Site: left deltoid; ls4 03:00 Follow up: Response: No adverse reaction; Pain is decreased; RASS: Alert and Calm (0) ea 02:36 Drug: Phenergan 25 mg Route: PO; ls4 03:00 Follow up: Response: No adverse reaction ea Disposition: 06/12/19 02:14 Discharged to Home. Impression: Pain in left knee, Pain in right knee, Constipation, unspecified. - Condition is Stable. - Discharge Instructions: Constipation, Adult, High-Fiber Diet, Musculoskeletal Pain, Knee Pain, Cryotherapy, Vncp-pe-Veki, Heat Therapy. - Medication Reconciliation Form, Thank You Letter, Antibiotic Education, Prescription Opioid Use form. - Follow up: Private Physician; When: 1 - 2 days; Reason: Recheck today's complaints, Continuance of care, Re-evaluation by your physician. Follow up: Emergency Department; When: As needed; Reason: Worsening of condition. Signatures: Selena Kennedy, MERCHANDISE FLOW ASSOCIATE-C MERCHANDISE FLOW ASSOCIATE-Csnw Meena Nolasco, RN Bryce Villanueva ea RN Edie Aviles RN RN ls4 Corrections: (The following items were deleted from the chart) 03:02 02:14 06/12/2019 02:14 Discharged to Home. Impression: Pain in left knee; Pain in right ea knee; Constipation, unspecified. Condition is Stable. Forms are Medication Reconciliation Form, Thank You Letter, Antibiotic Education, Prescription Opioid Use. Follow up: Private Physician; When: 1 - 2 days; Reason: Recheck today's complaints, Continuance of care, Re-evaluation by your physician. Follow up: Emergency Department; When: As needed; Reason: Worsening of condition. snw
--- NOTE | 2019-06-12 02:15 | ER ---
Nurse's Notes [facility] Name: Destiny Salguero Age: 59 yrs Sex: Female : 1960 Arrival Date: 06/12/2019 Time: 01:28 Bed 2 Private MD: Diagnosis: Pain in left knee;Pain in right knee;Constipation, unspecified Presentation: 06/12 01:43 Presenting complaint: Patient states: PAIN ON BOTH THE KNEES, WORSE ON THE LEFT, rv STARTED A WEEK AGO. TODAY IT IS WORSE. THROBBING CONTINUOUS PAIN, 10/10 SCALE. Transition of care: patient was not received from another setting of care. Onset of symptoms was June 11, 2019 at 08:00. Risk Assessment: Do you want to hurt yourself or someone else? Patient reports no desire to harm self or others. Initial Sepsis Screen: Does the patient meet any 2 criteria? No. Patient's initial sepsis screen is negative. Does the patient have a suspected source of infection? No. Patient's initial sepsis screen is negative. Care prior to arrival: None. 01:43 Method Of Arrival: Ambulatory rv 01:43 Acuity: MARYBEL 4 rv Triage Assessment: 01:48 General: Appears in no apparent distress. Behavior is calm, cooperative. Pain: rv Complains of pain in right knee and left knee Pain currently is 10 out of 10 on a pain scale. Quality of pain is described as throbbing. Historical: - Allergies: 01:47 Sulfasalazine (Vomiting); rv - PMHx: 01:47 Anemia; CHF; Diabetes - IDDM; Hyperlipidemia; Hypertension; Rheumatoid Arthritis; rv sciatica; - PSHx: 01:47 Appendectomy; Cholecystectomy; Carpal Tunnel Repair; rv - Immunization history:: Adult Immunizations up to date. - Coronavirus screen:: The patient has NOT traveled to [place], [place], or [place] in the past 14 days. Proceed with normal triage process as indicated. The patient has NOT had contact with known/suspected case of Coronavirus? Proceed with normal triage procedures. - Social history:: Smoking status: Patient denies any tobacco usage or history of. - Ebola Screening: : No symptoms or risks identified at this time. Screenin:52 Abuse screen: Denies threats or abuse. Denies injuries from another. Nutritional ls4 screening: No deficits noted. Tuberculosis screening: No symptoms or risk factors identified. Fall Risk None identified. Assessment: 01:51 General: Appears in no apparent distress. Behavior is calm, cooperative. Neuro: No ls4 deficits noted. Cardiovascular: No deficits noted. Respiratory: No deficits noted. GI: No deficits noted. : No deficits noted. Derm: No deficits noted. Musculoskeletal: Circulation, motion, and sensation intact. Capillary refill < 3 seconds, Range of motion: limited in left knee and right knee Swelling absent Reports pain in left leg and right leg and right knee and left knee. 03:00 Reassessment: Patient and/or family updated on plan of care and expected duration. Pain ea level reassessed. Patient is alert, oriented x 3, equal unlabored respirations, skin warm/dry/pink. Discharge isntruction given to patient, verbalized the understanding of instruction. Pt left ED via wheelchair per friend. Pt tolerating well. Vital Signs: 01:45 BP 117 / 61; Pulse 60; Resp 16; Temp 98; Pulse Ox 100% ; Weight 102.97 kg; Height 5 ft. rv 8 in. (172.72 cm); Pain 10/10; 01:45 Body Mass Index 34.51 (102.97 kg, 172.72 cm) rv ED Course: 01:28 Patient arrived in ED. ds1 01:40 Selena [facility]-C [facility]. snw 01:40 Markie Wong MD is Attending Physician. snw 01:45 Triage completed. rv 01:48 Arm band placed on. rv 01:50 Edie Morillo, [place] is Primary Nurse. ls4 01:52 Patient has correct armband on for positive identification. Bed in low position. Call ls4 light in reach. Side rails up X 1. Adult w/ patient. Pulse ox on. NIBP on. Warm blanket given. Verbal reassurance given. 01:52 No provider procedures requiring assistance completed. ls4 03:02 Patient did not have IV access during this emergency room visit. ea Administered Medications: 02:36 Not Given (Patient Refused): Magnesium Citrate Liquid 300 ml PO once ls4 02:36 Drug: fentaNYL (PF) 50 mcg Route: IM; Site: left deltoid; ls4 03:00 Follow up: Response: No adverse reaction; Pain is decreased; RASS: Alert and Calm (0) ea 02:36 Drug: Phenergan 25 mg Route: PO; ls4 03:00 Follow up: Response: No adverse reaction ea Outcome: 02:14 Discharge ordered by MD. garcia 03:01 Discharged to home via wheelchair, with friend. ea 03:01 Condition: stable 03:01 Discharge instructions given to patient, Instructed on discharge instructions, follow up and referral plans. Demonstrated understanding of instructions, follow-up care. 03:02 Patient left the ED. ea Signatures: Selena Kennedy, CHURCH HISTORY PROFESSOR-C CHURCH HISTORY PROFESSOR-Csnw Maria Isabel Cabezas ds1 Meena Nolasco, RN RN Bryce Baca, RN RN Edie Mckay RN RN ls4
[2019-06-12] MEDS ORDERED: FENTANYL CITR 100 MCG/2 ML ONE (02:22)
[2019-06-12] MEDS ORDERED: PROMETHAZINE 25 MG TABLET ONE (02:22)
[2019-06-12] MEDS ORDERED: MAGNESIUM CITRATE 300 ML BOT ONE (02:23)
[2019-06-12 03:07] VITALS: BP 117/61; TEMP 98; O2SAT 100
== END 2019-06-12 03:02 | disposition home or self-care (01) ==
LOC: ER 01:26
DX: M25.562 Pain in left knee (principal); M25.561 Pain in right knee; K59.00 Constipation, unspecified; I10 Essential (primary) hypertension; Z88.2 Allergy status to sulfonamides
CPT/HCPCS: 96372; 99283; J3010; Q0169

== ENCOUNTER 2020-03-27 08:45 | Observation (INO) | payer OTHER ==
[2020-03-27] MEDS ORDERED: DIAZEPAM 5 MG TABLET ONE (09:36)
[2020-03-27] MEDS ORDERED: MORPHINE 4 MG/ML SYR ONE ×2 (09:36→11:54)
[2020-03-27] MEDS ORDERED: ONDANSETRON 4 MG/2 ML VIAL ONE ×2 (09:37→11:54)
[2020-03-27 09:44] LABS: Absolute Lymphocytes (CBC) 3.4 K/uL (0.7-4.9); Hematocrit 30.6 % (36.0-45.0); Lymphocytes % 36.9 % (15.3-44.8); MPV 7.4 fL (7.6-11.3)
--- OUTSIDE RECORDS SUMMARY | 2020-03-27 09:44 | XMS REPORT | Clinical Summary ---
:[address] [facility] Address [address] [place] [address] Care Team Providers Name Role Phone Laurel Burris MD Primary Care Provider [phone] Allergies No Known Allergies Medications Medication Sig Dispensed Refills Start Date End Date Status metFORMIN (GLUCOPHAGE) Take 1,000 mg by 0 Active 1000 MG tablet mouth 2 (two) times daily with breakfast and dinner. omeprazole (PRILOSEC) Take 20 mg by 0 Active 20 MG capsule mouth daily. ferrous sulfate 325 (65 Take 325 mg by 0 Active FE) MG tablet mouth daily with breakfast. cyanocobalamin 1000 MCG Take 1,000 mcg by 0 Active tablet mouth daily. aspirin 81 MG EC tablet Take 81 mg by 0 Active mouth daily. cyclobenzaprine Take 10 mg by 0 Active (FLEXERIL) 10 MG tablet mouth 2 (two) times daily as needed for Muscle spasms. simvastatin (ZOCOR) 20 Take 20 mg by 0 Active MG tablet mouth nightly. insulin detemir To use 30 units q 45 mL 3 08/04/2015 Active (LEVEMIR FLEXTOUCH) 100 am and 20 units q unit/mL (3 mL) InPn 9 pm. injection insulin lispro (HUMALOG To use 12 to 36 45 mL 3 08/04/2015 Active KWIKPEN) 100 unit/mL units three times InPn a day by sliding scale. BD Ultra-Fine Meli Use as directed. 600 each 3 08/04/2015 Active Insulin Pen [place] 4 Dispense as mm x 32 G written, do not substitute. Brand medically necessary. To use 6 a day. PROAIR HFA 90 Inhale 8.5 g by 0 07/22/2015 Active mcg/actuation inhaler mouth via inhaler as needed Inhale two puffs by mouth every 4-6 hours as needed. 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 Pericardial effusion 07/29/2015 Family History Medical History Relation Name Comments Hypertension Brother Stroke Brother Alcohol abuse Father Heart disease Father Hypertension Father Early Mother Hypertension Sister Relation Name Status Comments Brother Father Mother Sister Social History Tobacco Use Types Packs/Day Years Used Date Never Smoker Smokeless Tobacco: Never Used Alcohol Use Drinks/Week oz/Week Comments No Sex Assigned at Date Recorded Not on file Last Filed Vital Signs Not on file Plan of Treatment Not on file Results Not on fileafter 03/27/2019 Insurance Payer Benefit Plan / Subscriber ID Effective Phone Address T e Group Dates CIGNA CIGNA [id number] 2015-Pr [facility] [employer] ALL esent Contracted Advance Directives For more information, please contact: [phone] Code Status Date Activated Date Inactivated Comments Full Code 07/29/2015 8:45 PM 08/07/2015 6:28 PM This code status was determined by: Patient
--- OUTSIDE RECORDS SUMMARY | 2020-03-27 09:45 | XMS REPORT | Continuity of Care Document ---
:1960 Author Organization [facility] t Address [address] [place] [address] Care Team Providers Name Role Phone Maia Burris MD Primary Care Physician Problems Condition Condition Condition Status Onset Resolution Last Treating Co mments Source Name Details Category Date Date Treatment Clinician Date Monitoring Monitoring Problem Active V illage of of 07-16 Family pacemaker Pacemaker 00:00: Prac tic 00 e Chronic Chronic Disease Active [facility] systolic systolic 08-12 [facility] - CHF CHF 00:00: Medical (congestiv (congestiv 00 Ce nter e heart e heart failure) failure) Insulin Insulin Disease Active [facility] dependent dependent 08-12 [facility] - diabetes diabetes 00:00: Medica l mellitus mellitus 00 Center Hypertensi Hypertensi Disease Active [facility] on on 08-12 [facility] - 00:[facility]: Medical 00 Center Mild Mild Disease Active [facility] intermitte intermitte 08-12 Pamela kes - nt asthma nt asthma 00:00: Medi nella without without 00 Center complicati complicati on on Rheumatoid Rheumatoid Disease Active [facility] arthritis arthritis 08-12 [facility] - 00:00: Medical 00 Center CAD CAD Disease Active Overview: [facility] (coronary (coronary 08-12 Nonocclus L ukes - artery artery 00:00: otoniel Medical disease) disease) 00 Center History of History of Disease Active [facility] permanent permanent 08-12 [facility] - cardiac cardiac 00:00: Medical pacemaker pacemaker 00 Cent er placement placement 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 Family History Family Member Diagnosis Comments Start Date Stop Date Source Natural brother Hypertension [facility] Natural brother Stroke [facility] Natural father Alcohol abuse [facility] Natural father Heart disease [facility] Natural father Hypertension [facility] Natural mother Early [facility] Natural sister Hypertension [facility] Social History Social Habit Start Date Stop Date Quantity Comments Source Sex Assigned At [facility] Tobacco use and 2015-08-13 2015-08-13 Never used [facility] - exposure 00:00:00 00:00:00 [facility] Alcohol intake 2015-08-13 2015-08-13 Current [facility] es - 00:00:00 00:00:00 non-drinker of [facility] nter alcohol (finding) Smoking Status Start Date Stop Date Source Never smoker [facility] Medications Ordered Filled Start Stop Current Ordering Indication Dosage Frequency Signature Comments Components Source Medication Medication Date Date Medication? Clinician (SIG) Name Name metFORMIN Yes 1000mg Take 1,[address] [facility] (GLUCOPHAGE 3-29 mg by [facility] - ) 1000 MG 15:36: mouth 2 Medic al tablet 54 (two) Center times daily with breakfast and dinner. omeprazole Yes 20mg QD Take [address] (PRILOSEC) 3-29 by mouth [facility] - 20 MG 15:36: daily. Medical capsule 54 Center ferrous Yes 325mg Take 325 [facility] sulfate 325 3-29 mg by [facility] - (65 FE) MG 15:36: mouth Medica l tablet 54 daily with Center breakfast. cyanocobala Yes 1000ug QD Take 1,[address] [facility] min 1000 3-29 mcg by [facility] - MCG tablet 15:36: mouth Medica l 54 daily. Center aspirin 81 Yes 81mg QD Take [address] MG EC 3-29 by mouth [facility] - tablet 15:36: daily. [facility] 54 Center cyclobenzap Yes 10mg Take [address] rine 3-29 by mouth 2 [facility] - (FLEXERIL) 15:36: (two) Medica l 10 MG 54 times Center tablet daily as needed for Muscle spasms. simvastatin Yes 20mg QD Take [address] (ZOCOR) 20 3-29 by mouth [facility] - MG tablet 15:36: nightly. [facility] 54 Center insulin Yes To use 30 [facility] detemir 3-20 units q am [facility] - (LEVEMIR 00:00: and 20 Medical FLEXTOUCH) 00 units q 9 Cent er 100 unit/mL pm. (3 mL) InPn injection insulin Yes To use 12 [facility] lispro 3-20 to 36 [facility] - (HUMALOG 00:00: units Medical KWIKPEN) 00 three Center 100 unit/mL times a InPn day by sliding scale. BD Yes Use as [facility] Ultra-Fine 3-20 directed. [facility] - Meli 00:00: Dispense Medical Insulin Pen 00 as Center [place] 4 written, mm x 32 G do not substitute . Brand medically necessary. To use 6 a day. PROAIR HFA Yes 8.5g Inhale 8.[address] 90 3-07 g by mouth [facility] - mcg/actuati 00:00: via Medica l on inhaler [address] needed Inhale two puffs by mouth every 4-6 hours as needed. albuterol albuterol No albuterol [facility] sulfate HFA sulfate HFA sulfate Family 90 90 HFA 90 Practic mcg/actuati mcg/actuati mcg/actuat e on aerosol on aerosol ion inhaler inhaler aerosol inhaler alprazolam alprazolam No 1 alprazolam [facility] 0.25 mg 0.25 mg 0.25 mg Family tablet Take tablet Take tablet Practic 1 tablet as 1 tablet as Take 1 e needed by needed by tablet as oral route oral route needed by for 30 for 30 oral route days. days. for 30 days. amiodarone amiodarone No amiodarone [facility] 200 mg 200 mg 200 mg Family tablet tablet tablet Practic e aspirin 81 aspirin 81 No 1 Q1D aspirin 81 Village mg mg mg Family tablet,sukhjinder tablet,sukhjinder tablet,del Practic yed release yed release ayed e Take 1 Take 1 release tablet tablet Take 1 every day every day tablet by oral by oral every day route. route. by oral route. BD Insulin BD Insulin No BD Insulin [facility] Syringe Syringe Syringe [facility] Ultra-Fine Ultra-Fine Ultra-Fine Practic 0.3 mL 31 0.3 mL 31 0.3 mL 31 e gauge x gauge x gauge x /16" 16" 16" bumetanide bumetanide No .5 Q1D bumetanide [facility] 2 mg tablet 2 mg tablet 2 mg F amily Take 0.5 Take 0.5 tablet Pract ic tablets tablets Take 0.5 e every day every day tablets by oral by oral every day route for route for by oral 90 days. 90 days. route for 90 days. Contour Contour No Contour Villag e Next Test Next Test Next Test Family Strips Strips Strips Practic e Dulcolax Dulcolax No Dulcolax Raya nuno (bisacodyl) (bisacodyl) (bisacodyl Family 1 cup daily 1 cup daily ) 1 cup Practic daily e folic acid folic acid No 1 Q1D folic acid [facility] 1 mg tablet 1 mg tablet 1 mg F amily Take 1 Take 1 tablet Practic tablet tablet Take 1 e every day every day tablet by oral by oral every day route. route. by oral route. lisinopril lisinopril No 1 Q1D lisinopril [facility] 5 mg tablet 5 mg tablet 5 mg F amily Take 1 Take 1 tablet Practic tablet tablet Take 1 e every day every day tablet by oral by oral every day route for route for by oral 90 days. 90 days. route for 90 days. magnesium magnesium No 1 Q1D magnesium [facility] 400 mg (as 400 mg (as 400 mg (as [facility] magnesium magnesium magnesium Practic oxide) oxide) oxide) e tablet Take tablet Take tablet 1 tablet 1 tablet Take 1 every day every day tablet by oral by oral every day route. route. by oral route. multivitami multivitami No multivitam [facility] n 1 po qd n 1 po qd in 1 po qd Family Practic e Novolin N Novolin N No Novolin N [place] Flexpen Flexpen Flexpen Family Practic e omeprazole omeprazole No 1capsul Q1D omeprazole [facility] 40 mg 40 mg e(s) 40 mg Family capsule,del capsule,del capsule,de Practic ayed ayed layed e release release release Take 1 Take 1 Take 1 capsule capsule capsule every day every day every day by oral by oral by oral route for route for route for 90 days. 90 days. 90 days. Ozempic Ozempic No .5mg Q1W Ozempic Villag e 0.25 mg or 0.25 mg or 0.25 mg or Family 0.5 mg (2 0.5 mg (2 0.5 mg (2 Practic mg/1.5 mL) mg/1.5 mL) mg/1.5 mL) e subcutaneou subcutaneou subcutaneo s pen s pen us pen injector injector injector Inject 0.5 Inject 0.5 Inject 0.5 mg every mg every mg every week by week by week by subcutaneou subcutaneou subcutaneo s route. s route. us route. Pacerone Pacerone No 1 Q12H Pacerone Raya nuno 400 mg 400 mg 400 mg Family tablet Take tablet Take tablet Practic 1 tablet 1 tablet Take 1 e every 12 every 12 tablet hours by hours by every 12 oral route oral route hours by for 7 days. for 7 days. oral route for 7 days. paroxetine paroxetine No 1 Q1D paroxetine [facility] 20 mg 20 mg 20 mg Family tablet Take tablet Take tablet Practic 1 tablet 1 tablet Take 1 e every day every day tablet by oral by oral every day route for route for by oral 30 days. 30 days. route for 30 days. sertraline sertraline No sertraline [facility] 50 mg 50 mg 50 mg Family tablet tablet tablet Practic e simvastatin simvastatin No 1 Q1D simvastati [facility] 20 mg 20 mg n 20 mg Family tablet Take tablet Take tablet Practic 1 tablet 1 tablet Take 1 e every day every day tablet by oral by oral every day route. route. by oral route. tramadol 50 tramadol 50 No tramadol Village mg tablet mg tablet 50 mg Fami ly tablet Practic e Immunizations Ordered Immunization Filled Immunization Date Status Commen ts Source Name Name influenza, influenza, 2019-03-09 Completed [facility] unspecified unspecified 00:00:00 Practice formulation formulation Vital Signs Vital Name Observation Time Observation Value Comments Source BP Diastolic 2019-08-07 00:00:00 76 mm[Hg] [facility] Practice Height 2019-08-07 00:00:00 68.5 [in_i] [facility] BP Systolic 2019-08-07 00:00:00 120 mm[Hg] [facility] BP Diastolic 2019-07-17 00:00:00 70 mm[Hg] [facility] Height 2019-07-17 00:00:00 68.5 [in_i] [facility] BMI (Body Mass 2019-07-17 00:00:00 34.5 kg/m2 [facility] Index) Practice BP Systolic 2019-07-17 00:00:00 126 mm[Hg] [facility] Body Weight 2019-07-17 00:00:00 230 [lb_av] [facility] Procedures This patient has no known procedures. Plan of Care Planned Activity Planned Date Details Comments Source Diagnostic Test Pending 2019-08-07 glucose, Vill age Family 00:00:00 fingerstick, Practice blood [code = glucose, fingerstick, blood] Diagnostic Test Pending 2019-08-07 BMP, serum or Raya nuno Family 00:00:00 plasma [code = Practice BMP, serum or plasma] Instructions [facility] Encounters Start End Encounter Admission Attending Care Care Encounter Source Date/Time Date/Time Type Type Clinicians Facility Department ID 2019-09-07 Outpatient [facility] [id number] [facility] 10:28:52 2019-08-07 [facility]07 [facility] [place] - [id number] [facility] 00:00:00 00:00:00 NaveedAshley MD: [id number] Medical - Prac [facility]_HOU_Cain Beltran, r [facility] [address], ([facility]) [place] [address] , Ph. 2019-07-17 2019-07-17 [facility] [place] - [id number] [facility] 00:00:00 00:00:00 NaveedAshley MD: [id number] Medical - Prac [facility]_HOU_Sugirene Beltran r [facility] [address], ([place]) [place] [address] , Ph. 2019-04-26 2019-04-26 Outpatient [id number] 07:22:00 07:22:00 [facility] l Results Test Description Test Time Test Comments Results Result Sourc e Comments SCR MAMM BILATERAL 2019-04-27 - SCR MAMM BILATERAL [facility] CAD DIGITAL 07:52:28 E[facility]NA CAD DIGITALBILATERAL DIGITAL SCREENING MAMMOGRAM 3D/2D WITH CAD: 04/25/2019CLINICAL: Asymptomatic. Digital breast tomosynthesis was performed in addition to routine CC and MLO views. Current mammographic images were evaluated by either a [employer] M-Vu or a [employer] ImageChecker CAD (computer aided detection system). Comparison is made to exams dated 06/17/2016 mammogram, 05/28/2014 mammogram, and 08/07/2008 mammogram - [facility]. The tissue of both breasts [...] one year. Arnold Doyle M.D. et/penrad:04/27/2019 07:52:28 Body Artist: Asia BENEDICT RT(M), [facility]: BIRADS 1-2 Normal Mammogram BI-RADS: 2 Benign
[2020-03-27 10:03] LABS: ALT/SGPT 19 U/L (12-78); AST/SGOT 25 U/L (15-37); Albumin 3.3 g/dL (3.4-5.0); Alkaline Phosphatase 74 U/L (45-117); BUN Blood Urea Nitrogen 19 mg/dL (7-18); Bicarbonate 30 mmol/L (21-32); Bilirubin Direct < 0.1 mg/dL (0-0.2); Bilirubin Total 0.3 mg/dL (0.2-1.0); Glucose Level 109 mg/dL (74-106); Lipase 260 U/L (73-393); Magnesium 1.7 mg/dL (1.8-2.4); NT PRO-BNP 727 pg/mL (<125); Potassium 3.9 mmol/L (3.5-5.1); Protein, Total 7.1 g/dL (6.4-8.2); Sodium Level 142 mmol/L (136-145); Troponin (Emerg Dept Use Only) 0.24 ng/mL (0.0-0.045)
--- NOTE | 2020-03-27 10:09 | RAD REPORT ---
EXAM DESCRIPTION: RAD - Chest Single View - 03/27/2020 9:58 am CLINICAL HISTORY: Abdominal distention;Chest pain Chest pain. COMPARISON: Chest Pa And Lat (2 Views) dated 02/22/2019; Chest Pa And Lat (2 Views) dated 02/18/2019; Chest Pa And Lat (2 Views) dated 10/04/2018; Chest Single View dated 09/16/2017 FINDINGS: Portable technique limits examination quality. The lungs are grossly clear. The heart is normal in size. No displaced fractures. Dual lead pacer dev ice is present. Shad are noted. IMPRESSION: No acute intrathoracic process suspected.
[2020-03-27 10:18] LABS: Urine Blood TRACE (NEG); Urine Glucose NEGATIVE (NEG); Urine Protein NEGATIVE (NEG)
--- NOTE | 2020-03-27 10:20 | RAD REPORT ---
EXAM DESCRIPTION: CT - Angio Aorta For Dissection - 03/27/2020 10:09 am CLINICAL HISTORY: Chest pain radiating to the back. CHEST PAIN COMPARISON: No comparisons TECHNIQUE: CT angiography of the aorta was performed with MIPs. All CT scans are performed using dose optimization technique as appropriate and may include automated exposure control or mA/KV adjustment according to patient size. FINDINGS: A left aortic arch is present with normal branching pattern of the great vessels.No acute aortic finding is seen such as aneurysm, penetrating ulcer or dissection. The celiac axis, SMA, ALVA and renal arteries are patent. No evidence of pulmonary embolism. Mild bronchiectasis noted in both medial lung bases. No worrisome pulmonary nodule, mass or infiltrat e. Small hiatal hernia is seen with fluid filled esophagus. The liver demonstrates no focal mass or biliary dilatation.Diffuse fatty liver. Cholecystectomy clips . The spleen is not visualized. Both adrenal glands are normal. There is mild atrophy left kidney wit h enlargement of the right kidney seen. No bowel obstruction, free fluid or abscess.Normal appendix.No pathologic enlarged lymphadenopathy id entified. No fracture or worrisome bone lesion seen.Moderate facet hypertrophy seen lower lumbar levels. IMPRESSION: No acute aortic finding is demonstrated. Small hiatal hernia is seen with fluid-filled esophagus present. Gastroesophageal reflux is a possibi lity.
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
[2020-03-27] MEDS ORDERED: ASPIRIN 81 MG CHEWABLE TABLET ONE (11:53)
[2020-03-27] MEDS ORDERED: ENOXAPARIN 100 MG/ML SYR SQ ONE (11:54)
[2020-03-27] MEDS ORDERED: FAMOTIDINE 20 MG/2 ML VIAL IV ONE (11:54)
[2020-03-27] MEDS ORDERED: MAGNESIUM SULFATE 1 gm IVPB 1 GM/100 ML BAG IV ONE (11:54)
[2020-03-27] MEDS ORDERED: ACETYLCYST 20% 800 MG/4 ML VIAL PO ONE (12:00)
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
[2020-03-27] MEDS ORDERED: LACTULOSE 20 GM/30 ML UCUP PO PRN (15:17)
[2020-03-27] MEDS ORDERED: ALPRAZOLAM 0.25 MG TABLET PO PRN (15:17)
[2020-03-27] MEDS ORDERED: HYDRALAZINE HCL 20 MG/ML VIAL IV PRN (15:17)
[2020-03-27] MEDS ORDERED: ALBUTEROL INHALER 60 PUFF/8 GM IH PRN (15:17)
[2020-03-27] MEDS ORDERED: ACETAMINOPHEN 500 MG TAB PO PRN (15:17)
[2020-03-27] MEDS ORDERED: NACHLORIDE 0.45% 1,000 ML IV SCH (15:17)
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
[2020-03-27 16:16] VITALS: BMI 33.0
[2020-03-27] MEDS: INSULIN -REGULAR HUMAN 50 UNIT/0.5 ML ML SQ SCH ×2 (16:30→20:53)
[2020-03-27 16:34] LABS: CKMB Creatine Kinase MB 2.6 ng/mL (0.3-3.6); Troponin I 0.24 ng/mL (0.0-0.045)
[2020-03-27] MEDS ORDERED: TRAMADOL HCL 50 MG TAB PO PRN (17:24)
[2020-03-27] MEDS: ONDANSETRON 4 MG/2 ML VIAL IV PRN (17:28)
--- NOTE | 2020-03-27 18:04 | EKG ---
Test Date: 2020-03-27 Test Time: 09:32:16 Still Operator Brandy: JOAQUIN MEASUREMENT RESULTS: Intervals: Rate: 61 VT: 174 QRSD: 174 QT: 502 QTc: 505 Douglas: P: 67 VT: 174 QRS: -81 T: 61 INTERPRETIVE STATEMENTS: Normal sinus rhythm Right atrial enlargement Left axis deviation Nonspecific intraventricular block Abnormal ECG Compared to ECG 02/18/2019 14:10:53 Atrial abnormality now present Left-axis deviation now present Ventricular-paced complex(es) or rhythm no longer present Atrial-sensed ventricular-paced complex(es) or rhythm no longer present Electronically Signed On 03-27-20 18:02:37 DIALYSIS TECH by Dung Coleman
[2020-03-27] MEDS: HYDROCODONE/APAP 7.5/325 MG TAB PO PRN (20:12)
[2020-03-27] MEDS ORDERED: HEPARIN 5000 UNIT/ML 1 ML VIAL SQ SCH (21:00)
[2020-03-27] MEDS ORDERED: ACETYLCYST 20% 800 MG/4 ML VIAL PO SCH (21:00)
[2020-03-27] MEDS ORDERED: ATORVASTATIN 20 MG TAB PO SCH (21:00)
[2020-03-27 23:45] LABS: CKMB Creatine Kinase MB 2.6 ng/mL (0.3-3.6); Troponin I 0.21 ng/mL (0.0-0.045)
[2020-03-28 06:00] LABS: Absolute Lymphocytes (CBC) 4.5 K/uL (0.7-4.9); Lymphocytes % 40.4 % (15.3-44.8); MPV 7.9 fL (7.6-11.3); RBC Red Blood Cell Count 3.17 M/uL (3.86-4.86)
[2020-03-28 06:16] LABS: Potassium 4.2 mmol/L (3.5-5.1)
[2020-03-28] MEDS: INSULIN -REGULAR HUMAN 50 UNIT/0.5 ML ML SQ SCH (07:30)
[2020-03-28] MEDS ORDERED: PANTOPRAZOLE 40MG TABLET PO SCH (07:30)
[2020-03-28] MEDS ORDERED: REGADENOSON 0.4 MG/5 ML SYR IV ONE (08:24)
[2020-03-28 08:43] VITALS: TEMP 97.3
[2020-03-28] MEDS ORDERED: ASPIRIN EC 81 MG TAB PO SCH (09:00)
[2020-03-28] MEDS ORDERED: FOLIC ACID 1 MG TABLET PO SCH (09:00)
[2020-03-28] MEDS ORDERED: PARoxetine HCL 10 MG TAB PO SCH (09:00)
[2020-03-28] MEDS ORDERED: BUMETANIDE 1 MG TABLET PO SCH (09:00)
--- NOTE | 2020-03-28 12:01 | RAD REPORT ---
EXAM DESCRIPTION: NM - Rest Stress Cardiac Imaging - 03/28/2020 11:54 am CLINICAL HISTORY: CP Chest pain. COMPARISON: No comparisons TECHNIQUE: The patient was administered approximately 10mCi of Tc 99m Sestamibi prior to resting SPE CT imaging of the heart. The patient was then administered approximately 30 mCi of Tc 99m Sestamibi f ollowing exercise or pharmacologic stress. Multiplanar SPECT images were reviewed. FINDINGS: No stress induced ischemic defect is seen to suggest stress induced ischemia. No fixed def ect is seen to suggest hibernating myocardium or scarred myocardium. The end diastolic volume is 85 ml, the end systolic volume is 31 ml, and the ejection fraction is 63 %. IMPRESSION: No stress induced ischemia.
--- NOTE | 2020-03-28 12:15 | P.DS ---
Admission Date: 03/27/20 Discharge Date: 03/28/20 Primary Care Provider: Dr. Sheffield; Cardiology-Dr. Coleman Disposition: ROUTINE DISCHARGE Discharge Condition: GOOD Reason for Admission: Chest pain Consultations: Cardiology-Dr. Coleman Nephrology-Dr. Sheffield Procedures: Cardiac stress test: FINDINGS: No stress induced ischemic defect is seen to suggest stress induced ischemia. No fixed defect is seen to suggest hibernating myocardium or scarred myocardium. The end diastolic volume is 85 ml, the end systolic volume is 31 ml, and the eje ction fraction is 63 %. IMPRESSION: No stress induced ischemia. CT Chest: FINDINGS: A left aortic arch is present with normal branching pattern of the great vessels.No acute aortic finding is seen such as aneurysm, penetrating ulcer or dissection. The celiac axis, SMA, ALVA and renal arteries are patent. No evidence of pulmonary embolism. Mild bronchiectasis noted in both medial lung bases. No worrisome pulmonary nodule, mass or infiltrate. Small hiatal hernia is seen with fluid filled esophagus. The liver demonstrates no focal mass or biliary dilatation.Diffuse fatty liver. Cholecystectomy clips. The spleen is not visualized. Both adrenal glands are normal. There is mild atrophy left kidney with enlargement of the right kidney seen. No bowel obstruction, free fluid or abscess.Normal appendix.No pathologic enlarged lymphadenopathy identified. No fracture or worrisome bone lesion seen.Moderate facet hypertrophy seen lower lumbar levels. IMPRESSION: No acute aortic finding is demonstrated. Small hiatal hernia is seen with fluid-filled esophagus present. Gastroesophageal reflux is a possibility. Medical problem list: Chest pain secondary to ischemic demand due to chronic conditions Chronic renal disease stage III Hypertension Diabetes mellitus type 2 insulin dependent GERD with hiatal hernia History of pacemaker Anxiety with increased stress at home Hyperlipidemia Asthma Anemia of chronic disease IBS-constipation Brief History of Present Illness: 60-year-old female presented to the emergency room with chest pain. Patient with history of diabetes mellitus type 2, hypertension, chronic renal disease, history of pacemaker and CHF. Patient presented with chest pain today. It was mainly to the left chest wall area near her pacemaker. Pain radiated to the left arm. Patient has some neuropathy a reported some tingling. The pain she rates about 10/10. No shortness of breath noted. Some nausea noted. She has been under a great deal of stress at home. She came to the ER for further evaluation. Patient further reports that she was seen by her thermo processor a week ago. In the recent past she has seen electrophysiology for her pacemaker. In the ER patient was evaluated. EKG shows no significant EKG findings. White count 9.3, hemoglobin 10.5. Sodium 142, potassium 3.9, BUN of 19, creatinine 1.43 with a GFR 45. Glucose 109. CT dissection shows no acute aortic abnormality. Small hiatal hernia with GERD noted. Troponin elevated at 0.24. BNP 727 chest x-ray unremarkable. Patient admitted for further evaluation and treatment. When I saw the patient ER, she was without significant chest pain. at bedside. She denies any tobacco or alcohol use. Hospital Course: Patient presented with chest pain. Troponin slightly elevated but improved. Case discussed in detail with nephrology and cardiology. Cardiology reported that the patient had a recent heart catheterization which was unremarkable. Cardiology recommended cardiac stress test to further evaluate at this time. Cardiac stress test showed no stress-induced ischemia. Elevated troponin likely related to ischemic demand due to her multiple medical problems. At discharge patient stable. At discharge patient will continue with her current medications at home including aspirin 81 mg daily, Bumex 2 mg daily, Zocor 20 mg daily and lisinopril 5 mg daily. Recommend follow up with cardiology in 2-4 weeks to monitor her care. Patient with chronic renal disease stage III. Nephrology was consulted during her stay. Lisinopril was held due to slight renal insufficiency. At discharge she will continue with a 1500 cc per day fluid restriction and low-salt diet. Recommend to monitor her weight daily. If her weight increases by more than 5 lb she is to contact nephrology for further recommendation. Recommend no further use of nonsteroidal anti-inflammatories. Future medications would to be renally dose. At discharge she will continue with Bumex 2 mg daily. Recommend follow up with Nephrology to further monitor and address. Patient with hypertension. Lisinopril was held due to mild renal insufficiency. At discharge she will continue with her current medication lisinopril 5 mg daily. Recommend to maintain blood pressure less than 130/80. Further adjustment can be done by her PCP. Patient with diabetes mellitus type 2 insulin dependent. This has remained stable. At discharge she will continue with her current medication including insulin regimen. Recommend to maintain blood sugar less than 140 fasting and less than 200 after meals. Further adjustment can be done by her PCP. Patient with GERD and hiatal hernia. At discharge patient will continue with Prilosec 40 mg daily. Patient with history of pacemaker. Patient reports pacemaker was recently evaluated by electrophysiology. She may follow up with felled seam operator chainstitch as directed. Patient with history of asthma. This is remained stable. At discharge she will continue with her current medication albuterol as needed. Patient with hyperlipidemia. At discharge this appears stable. Will continue with her current medication Zocor 20 mg daily. Patient with increased anxiety. She is under a great deal of stress at home. Will provide contact information to psychiatry to establish care and to further evaluate and treat her condition. Patient may continue with her current medication of Paxil 20 mg daily and Xanax 0.25 mg at bedtime. Patient would benefit with stress counseling to deal with her situation at home. Vital Signs/Physical Exam: Temp Pulse Resp BP Pulse Ox 97.3 F 67 15 136/64 99 03/28/20 08:00 03/28/20 08:00 03/28/20 08:00 03/28/20 08:00 03/28/20 08:00 General: Alert, In no apparent distress, Oriented x3, Cooperative HEENT: Atraumatic, Mucous membr. moist/pink Neck: Supple Respiratory: Clear to auscultation bilaterally, Normal air movement Cardiovascular: Normal pulses, Regular rate/rhythm Gastrointestinal: Normal bowel sounds, Soft and benign, Non-distended, No masses, No rebound, No guarding Musculoskeletal: No erythema, No tenderness, No warmth Integumentary: No tenderness/swelling, No erythema, No warmth, No cyanosis Neurological: Normal speech, Normal strength at 5/5 x4 extr, Normal tone, Abnormal affect (increased anxiety) Laboratory Data at Discharge: WBC 11.2 K/uL (4.3-10.9) H D 03/28/20 05:26 Hgb 10.2 g/dL (12.0-15.0) L 03/28/20 05:26 Hct 30.0 % (36.0-45.0) L 03/28/20 05:26 Plt Count 396 K/uL (152-406) 03/28/20 05:26 Sodium 140 mmol/L (136-145) 03/28/20 05:26 Potassium 4.2 mmol/L (3.5-5.1) 03/28/20 05:26 BUN 17 mg/dL (7-18) 03/28/20 05:26 Creatinine 1.31 mg/dL (0.55-1.3) H 03/28/20 05:26 Glucose 128 mg/dL (74-106) H 03/28/20 05:26 Magnesium 2.0 mg/dL (1.8-2.4) 03/28/20 05:26 Total Bilirubin 0.3 mg/dL (0.2-1.0) 03/27/20 09:25 AST 25 U/L (15-37) 03/27/20 09:25 ALT 19 U/L (12-78) 03/27/20 09:25 Alkaline Phosphatase 74 U/L (45-117) 03/27/20 09:25 Troponin I 0.21 ng/mL (0.0-0.045) H 03/27/20 23:02 Triglycerides 221 mg/dL (<150) H 03/28/20 05:26 Cholesterol 180 mg/dL (<200) 03/28/20 05:26 HDL Cholesterol 51 mg/dL (40-60) 03/28/20 05:26 Cholesterol/HDL Ratio 3.53 03/28/20 05:26 Lipase 260 U/L (73-393) 03/27/20 09:25 Home Medications: ALPRAZolam [Xanax*] 0.25 mg PO BEDTIME 03/27/20 Albuterol Sulfate [Albuterol Sulfate 0.083% Neb Soln] 2.5 mg NEB TID 03/27/20 Aspirin 81 mg PO DAILY 03/27/20 Bumetanide 2 mg PO DAILY 03/27/20 Insulin NPH Human Isophane [Novolin N] 10 units SQ BEDTIME 03/27/20 Insulin NPH Human [Novolin N (Humulin N)*] 15 units SQ AC 03/27/20 Iron,Carbonyl/Ascorbic Acid [Iron 100-Vitamin C Tablet] 1 tab PO DAILY 03/27/20 Lisinopril [Zestril] 5 mg PO BEDTIME 03/27/20 Omeprazole [Prilosec] 40 mg PO DAILY 03/27/20 PARoxetine HCL [Paroxetine HCl] 20 mg PO DAILY 03/27/20 Semaglutide [Ozempic] 0.5 units SQ WMP 03/27/20 Simvastatin 20 mg PO BEDTIME #30 03/28/20 New Medications: Simvastatin 20 mg PO BEDTIME #30 Patient Discharge Instructions: 1. Follow up with PCP in 1 week to follow up hospitalization. 2. Patient presented with chest pain. Troponin slightly elev ated but improved. Case discussed in detail with nephrology and cardiology. Cardiology reported that the patient had a recent heart catheterization which was unremarkable. Cardiology recommended cardiac stress test to further evaluate at this time. Cardiac stress test showed no stress-induced ischemia. Elevated troponin likely related to ischemic demand due to her multiple medical problems. At discharge patient stable. At discharge patient will continue with her current medications at home including aspirin 81 mg daily, Bumex 2 mg daily, Zocor 20 mg daily and lisinopril 5 mg daily. Recommend follow up with cardiology in 2-4 weeks to monitor her care. 3. Patient with chronic renal disease stage III. Nephrology was consulted during her stay. Lisinopril was held due to slight renal insufficiency. At discharge she will continue with a 1500 cc per day fluid restriction and low-salt diet. Recommend to monitor her weight daily. If her weight increases by more than 5 lb she is to contact nephrology for further recommendation. Recommend no further use of nonsteroidal anti-inflammatories. Future medications would to be renally dose. At discharge she will continue with Bumex 2 mg daily. Recommend follow up with Nephrology to further monitor and address. 4. Patient with hypertension. Lisinopril was held due to mild renal insufficiency. At discharge she will continue with her current medication lisinopril 5 mg daily. Recommend to maintain blood pressure less than 130/80. Further adjustment can be done by her PCP. 4. Patient with diabetes mellitus type 2 insulin dependent. This has remained stable. At discharge she will continue with her current medication including insulin regimen. Recommend to maintain blood sugar less than 140 fasting and less than 200 after meals. Further adjustment can be done by her PCP. 5. Patient with GERD and hiatal hernia. At discharge patient will continue with Prilosec 40 mg daily. 6. Patient with history of pacemaker. Patient reports pacemaker was recently evaluated by electrophysiology. She may follow up with felled seam operator chainstitch as directed. 7. Patient with history of asthma. This is remained stable. At discharge she will continue with her current medication albuterol as needed. 8. Patient with hyperlipidemia. At discharge this appears stable. Will continue with her current medication Zocor 20 mg daily. 9. Patient with increased anxiety. She is under a great deal of stress at home. Will provide contact information to psychiatry to establish care and to further evaluate and treat her condition. Patient may continue with her current medication of Paxil 20 mg daily and Xanax 0.25 mg at bedtime. Patient would benefit with stress counseling to deal with her situation at home. Diet: ADA Activity: Ad ino Followup: Khalida Parks MD [Primary Care Provider] - Time spent managing pt's care (in minutes): 55
[2020-03-28] MEDS: HYDROCODONE/APAP 7.5/325 MG TAB PO PRN (12:45)
[2020-03-28] MEDS: ONDANSETRON 4 MG/2 ML VIAL IV PRN (12:45)
[2020-03-28 12:47] VITALS: BP 150/72
[2020-03-28 13:15] VITALS: O2SAT 100
--- NOTE | 2020-03-28 13:41 | ECHO ---
HEIGHT: 5 ft 8 in WEIGHT: 217 lb 0 oz DATE OF STUDY: 03/28/[address]: Saulo Early DO 2-DIMENSIONAL: YES M.MODE: YES DOPPLER: YES COLOR FLOW: YES TDS: NO PORTABLE: NO DEFINITY: NO BUBBLE STUDY: NO DIAGNOSIS: NSTEMI CARDIAC HISTORY: CATHERIZATION: NO SURGERY: NO PROSTHETIC VALVE: NO PACEMAKER: YES MEASUREMENTS (cm) DIASTOLIC (NORMALS) SYSTOLIC (NORMALS) IVSd 0.9 (0.6-1.2) LA Diam 3.6 (1.9-4.0) LVEF 56% LVIDd 3.8 (3.5-5.7) LVIDs 2.7 (2.0-3.5) %FS 29% LVPWd 0.9 (0.6-1.2) Ao Diam 2.9 (2.0-3.7) 2 DIMENSIONAL ASSESSMENT: RIGHT ATRIUM: NORMAL LEFT ATRIUM: NORMAL RIGHT VENTRICLE: NORMAL LEFT VENTRICLE: NORMAL TRICUSPID VALVE: MODERATE TRICUSPID RREGURGITATION MITRAL VALVE: MILD TO MODERERATE MITRAL REGURGITATION PULMONIC VALVE: MILD PULMONIC INSUFFICIENCY AORTIC VALVE: MILD AORTIC INSUFFICIENCY PERICARDIAL EFFUSION: NONE AORTIC ROOT: NORMAL LEFT VENTRICULAR WALL MOTION: NORMAL. DOPPLER/COLOR FLOW: SEE BELOW. COMMENTS: NORMAL LEFT VENTRICULAR EJECTION FRACTION 55-60%. DIASTOLIC DYSFUNCTION. MODERATE PULMONARY HYPERTENSION, RIGHT VENTRICULAR SYSTOLIC PRESSURE 45-50mmHg. MODERATE TRICUSPID REGURGITATION, MILD PULMONIC INSUFFICIENCY, MILD AORTIC INSUFFICIENCY, MILD TO MODERATE MITRAL REGURGITATION. LIKELY PACEMAKER IN THE RIGHT VENTRICLE. MITRAL ANNULAR CALCIFICATION. TECHNOLOGIST: AXEL ABBASI
--- NOTE | 2020-03-28 13:49 | TREADPHA ---
DX: CHEST PAIN Date of Study: 03/28/2020 Ht: 5' 8 " Wt: 217 lb 0 oz Consulting Physician: BLAYNE MEDICATIONS: TYLENOL, ASPIRIN, LIPITOR, APRESOLINE, NOVOLIN, LISINOPRIL. HISTORY: CONGESTIVE HEART FAILURE, INSULIN DEPENDENT DIABETES MELLITUS, HYPERTENSION, HIGH CHOLESTEROL PHYSICIAL EXAMINATION: RESTING B.P.: 143/76 RESTING H.R.: 67 RESTING EKG: PACED EKG PROTOCOL: LEXISCAN EXERCISE TIME: 3:30 B.P. AT PEAK STRESS: 147/69 IMPRESSION: PACED EKG, CANNOT INTERPRET. STRESS EKG SECONDARY TO THAT. NO PREMATURE VENTRICULAR COMPLEXES.
--- NOTE | 2020-03-28 19:14 | P.PN ---
Date of Service: 03/28/20 Vital Signs Temp Pulse Resp BP Pulse Ox 97.3 F 72 16 150/72 H 100 03/28/20 12:00 03/28/20 12:00 03/28/20 12:00 03/28/20 12:00 03/28/20 12:00 Microbiology Results 03/27/20 09:45 Clean Catch Urine [place] Count - Preliminary No growth. 03/27/20 09:45 Clean Catch Urine - Preliminary No growth. Assessment/ Plan: Nephrology CPS stable without CP or SOB. No acute events overnight. LUE pain and spasm. Abdominal pain. Vitals, medications, blood work and imaging reviewed in the chart. NAD. Obese. MMM. Neck supple. CTA. RRR. Soft, tender Abd. No C/C/E. No rash. AAO. Normal Speech. A/ RAQUEL, improving Hypomagnesemia HTN with CKD/ CHF Diastolic CHF, A/C. DM II with CKD. P/ Continue current POC and Medications. Continue bumex. Replete lytes prn. Plan for stress test today. Follow up with cardiology. AM labs. Daily weight. No NSAIDs.
--- NOTE | 2020-03-31 02:33 | PN ---
Date of Progress Note: 03/28/2020 Ms. Salguero had come in with atypical chest pain, sounds more like musculoskeletal or cervical spondylo sis, although her troponin was positive. Her EKG did not show any specific changes. Her pain was no nexertional. A stress test, which was done on 03/28/2020, was normal without any evidence of ischemi a. She did have an echocardiogram, showed a normal ejection fraction. She had diastolic dysfunction with a right ventricular systolic pressure of 50 mmHg consistent with moderate pulmonary hypertensio n. She had mild aortic insufficiency. Ejection fraction was 56%. I think she can go home today and we will follow her in the office in the next week or 2. If her symptoms persist, we will repeat ano ther catheterization soon. LETHA/MICAELA Voice ID: [id number] Report ID: [id number]
--- NOTE | 2020-03-31 02:55 | CON ---
Date of Consultation: 03/27/2020 Reason For Consultation: Atypical chest pain. History Of Present Illness: Ms. Salguero is a 60-year-old black woman, who has had a history of normal heart catheterization in the past. She is under extreme amount of stress. She does have a history o f diabetes, hypertension, dyslipidemia, rheumatoid arthritis, sciatica, anemia, and chronic diastolic congestive heart failure. She has had an appendectomy and cholecystectomy. She came in with pain t hat is mostly in the left neck, left shoulder area, occasional abdominal pain. No nausea, vomiting, diaphoresis, PND, orthopnea, pedal edema, palpitations, or syncope. By the time I saw her, she has h ad a normal EKG, chest x-ray, and blood work revealing slightly elevated troponin. She as stated ear lier has had normal heart catheterization in the past. She is pain-free now and very tearful. Allergies: NONE. Review of Systems: Negative. Social History: Negative. Family History: Noncontributory. Medications: Ozempic, aspirin, bumetanide, lisinopril, omeprazole, Zocor, Xanax, albuterol, and insu nickie. Physical Examination: Vital Signs: Stable. She was afebrile. HEENT: Negative. Neck: Supple with no bruit. Chest: Clear to auscultation and percussion. Cardiac: Regular rhythm and rate. No murmurs, gallops, or rubs. Abdomen: Benign. Extremities: No clubbing, cyanosis, or edema. Diagnostic Data: Slightly elevated troponin. Her creatinine is 1.31. She was mildly anemic. 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 Impression And Plan: Ms. Salguero is a patient who has multiple cardiac risk factors for heart disease including hypertension, diabetes, and dyslipidemia. She has had normal catheterizations before her t roponin elevation, is not consistent with acute myocardial infarction. She had a creatinine and anem ia that may be causing this as well as uncontrolled hypertension. Nevertheless, I recommend that we do an echocardiogram and a stress test to rule out coronary artery disease or cardiomyopathy. We simon l see what that shows before making any final decisions. If the stress test is abnormal, we will do another heart catheterization on her. The rest of her problems are stable at this point. LETHA/MICAELA Voice ID: [id number] Report ID: [id number]
== END 2020-03-28 13:50 | disposition home or self-care (01) ==
LOC: ER 08:45 → ERHOLD 12:23 → INTOOBSV 12:23 → 2ND 14:45
PROVIDERS: ADMIT Family Medicine; ATTEND Family Medicine
DX: I24.8 Other forms of acute ischemic heart disease (principal); E11.22 Type 2 diabetes mellitus with diabetic chronic kidney disease; I13.0 Hypertensive heart and chronic kidney disease with heart failure and stage 1 through stage 4 chronic kidney disease, or unspecified chronic kidney disease; I50.33 Acute on chronic diastolic (congestive) heart failure; E78.5 Hyperlipidemia, unspecified; M06.9 Rheumatoid arthritis, unspecified; Z20.828 Contact with and (suspected) exposure to other viral communicable diseases; Z79.4 Long term (current) use of insulin; Z79.82 Long term (current) use of aspirin; R74.8 Abnormal levels of other serum enzymes; N17.9 Acute kidney failure, unspecified; E83.42 Hypomagnesemia; N18.30 Chronic kidney disease, stage 3 unspecified; D63.1 Anemia in chronic kidney disease; K21.9 Gastro-esophageal reflux disease without esophagitis; K44.9 Diaphragmatic hernia without obstruction or gangrene; Z95.0 Presence of cardiac pacemaker; J45.909 Unspecified asthma, uncomplicated; K58.1 Irritable bowel syndrome with constipation; E11.40 Type 2 diabetes mellitus with diabetic neuropathy, unspecified; F41.8 Other specified anxiety disorders; G89.29 Other chronic pain; M79.602 Pain in left arm; I27.20 Pulmonary hypertension, unspecified; I34.0 Nonrheumatic mitral (valve) insufficiency; I36.1 Nonrheumatic tricuspid (valve) insufficiency
CPT/HCPCS: 96365; 93005; 93017; 93306; 87088; 85025 ×2; 87086; 80048 ×2; 36415 ×2; 83735 ×2; 82550 ×2; 80061; 82565; 82947 ×2; 80076; 81003; 84484 ×3; 82553 ×2; 83690; 83880; 71275; 74175; 71045; 78452; 96375; 96372; 99285; 96366; U0002; Q9967; J1644; J3475; J1650; J2785; J2405 ×4; A9500; G0378 ×3

== ENCOUNTER 2020-05-14 15:39 | Emergency (ER) | payer OTHER ==
--- OUTSIDE RECORDS SUMMARY | 2020-05-14 15:41 | XMS REPORT | Clinical Summary ---
:1960 Author Organization [facility] Address [address] [place] [address] Care Team Providers Name Role Phone Laurel Burris MD Primary Care Provider [phone] Allergies No Known Allergies Medications Medication Sig [...] 600 each 3 08/04/2015 Active Insulin Pen [place] 4 Dispense as mm x 32 G [...] Not on file Results Not on fileafter 05/14/2019 Insurance Payer Benefit Plan / Subscriber ID Effective Phone Address T e Group Dates CIGNA CIGNA [id number] 2015-Pr [facility] [place] esent Contracted Advance Directives For more information, please contact: [phone] Code Status Date Activated Date Inactivated Comments Full Code 07/29/2015 8:45 PM 08/07/2015 6:28 PM This code status was determined by: Patient
--- OUTSIDE RECORDS SUMMARY | 2020-05-14 15:41 | XMS REPORT | Continuity of Care Document ---
:1960 Author Organization [facility] t Address [address] [place] [address] Care Team Providers Name Role Phone Maia [...] Date Stop Date Source Natural brother Hypertension [facility] Natural brother Stroke [facility] Natural father Alcohol abuse [facility] Natural father Heart disease [facility] Natural father Hypertension [facility] Natural mother Early [facility] Natural sister Hypertension [facility] Social History Social Habit Start Date Stop Date Quantity Comments Source Sex Assigned At [facility] Tobacco use and 2015-08-13 2015-08-13 Never used [facility] - exposure 00:00:00 00:00:00 [facility] Alcohol intake 2015-08-13 2015-08-13 Current [facility] es - 00:00:00 00:00:00 non-drinker of [facility] nter alcohol (finding) Smoking Status Start Date Stop Date Source Never smoker [facility] Medications Ordered Filled Start Stop Current Ordering [...] by mouth [facility] - tablet 15:36: daily. [facility] Center cyclobenzap Yes 10mg Take [address] [facility] [address] [facility] 3-29 by mouth 2 [facility] - (FLEXERIL) 15:36: (two) Medica l 10 MG 54 times Center tablet daily as needed for Muscle spasms. simvastatin Yes 20mg QD Take [address] (ZOCOR) 20 3-29 by mouth [facility] - MG tablet 15:36: nightly. [facility] 54 Center insulin Yes To use 30 [...] Dispense Medical Insulin Pen 00 as Center [place] 4 written, mm x 32 G do not substitute . Brand medically necessary. To use 6 a day. PROAIR HFA Yes 8.5g Inhale 8.[address] 90 3-07 g by mouth [facility] - mcg/actuati 00:00: via Medica l on inhaler [address] needed Inhale two puffs by mouth every 4-6 hours as needed. albuterol albuterol No albuterol [facility] sulfate HFA sulfate HFA sulfate Family 90 90 HFA 90 [facility] mcg/actuati mcg/actuati mcg/actuat e on aerosol on aerosol ion inhaler inhaler aerosol inhaler alprazolam alprazolam No 1 alprazolam [facility] 0.25 mg 0.25 mg 0.25 mg Family tablet Take tablet Take tablet Practic 1 tablet as 1 tablet as Take 1 e needed by needed by tablet as oral route oral route needed by for 30 for 30 oral route days. days. for 30 days. amiodarone amiodarone No amiodarone [facility] 200 mg 200 mg 200 mg Family [...] BD Insulin BD Insulin No BD Insulin [place] Syringe Syringe Syringe [facility] Ultra-Fine Ultra-Fine Ultra-Fine Practic 0.3 mL 31 0.3 mL 31 0.3 mL 31 e gauge x gauge x gauge x /16" /16" 16" bumetanide bumetanide No .5 Q1D bumetanide [facility] 2 mg tablet 2 mg tablet 2 [...] folic acid No 1 Q1D folic acid [facility] 1 mg tablet 1 mg tablet 1 mg F amily Take 1 Take 1 tablet Pract[facility] tablet tablet Take 1 e every day every day tablet by oral by oral every day route. route. by oral route. lisinopril lisinopril No 1 Q1D lisinopril [facility] 5 mg tablet 5 mg tablet 5 mg F amily Take 1 Take 1 tablet Practic tablet tablet Take 1 e every day every day tablet by oral by oral every day route for route for by oral 90 days. 90 days. route for 90 days. magnesium magnesium No 1 Q1D magnesium [facility] 400 mg (as 400 mg (as 400 mg (as [facility] magnesium magnesium magnesium Pract[facility] oxide) oxide) oxide) e tablet Take tablet Take tablet 1 tablet 1 tablet Take 1 every day every day tablet by oral by oral every day route. route. by oral route. multivitami multivitami No multivitam [facility] n 1 po qd n 1 po qd in 1 po qd Family Practic e Novolin N Novolin N No Novolin N [place] Flexpen Flexpen Flexpen Family Practic e omeprazole omeprazole No 1capsul Q1D omeprazole [facility] 40 mg 40 mg e(s) 40 mg [...] days. paroxetine paroxetine No 1 Q1D paroxetine [facility] 20 mg 20 mg 20 mg Family tablet Take tablet Take tablet Practic 1 tablet 1 tablet Take 1 e every day every day tablet by oral by oral every day route for route for by oral 30 days. 30 days. route for 30 days. sertraline sertraline No sertraline [facility] 50 mg 50 mg 50 mg Family tablet tablet tablet Practic e simvastatin simvastatin No 1 Q1D simvastati [facility] 20 mg 20 mg n 20 mg [...] Source Name Name influenza, influenza, 2019-03-09 Completed [facility] unspecified unspecified 00:00:00 Practice formulation formulation Vital Signs Vital Name Observation Time Observation Value Comments Source BP Diastolic 2019-08-07 00:00:00 76 mm[Hg] [facility] Practice Height 2019-08-07 00:00:00 68.5 [in_i] [facility] BP Systolic 2019-08-07 00:00:00 120 mm[Hg] [facility] BP Diastolic 2019-07-17 00:00:00 70 mm[Hg] [facility] Height 2019-07-17 00:00:00 68.5 [in_i] [facility] BMI (Body Mass 2019-07-17 00:00:00 34.5 kg/m2 [facility] Index) Practice BP Systolic 2019-07-17 00:00:00 126 mm[Hg] [facility] Body Weight 2019-07-17 00:00:00 230 [lb_av] [facility] Procedures This patient has no known procedures. Plan of Care Planned Activity Planned Date Details Comments Source Diagnostic Test Pending 2019-08-07 glucose, Vill age Family 00:00:00 fingerstick, Practice blood [code = glucose, fingerstick, blood] Diagnostic Test Pending 2019-08-07 BMP, serum or Raya nuno Family 00:00:00 plasma [code = Practice BMP, serum or plasma] Instructions [facility] Encounters Start End Encounter Admission Attending Care Care Encounter Source Date/Time Date/Time Type Type Clinicians Facility Department ID 2019-09-07 Outpatient [facility] [id number] [facility] 10:28:52 2019-08-07 2019-08-07 [facility] [place] - [id number] [facility] 00:00:00 00:00:00 NaveedAshley MD: [id number] Medical - Pr[facility]_HOJessica_Cain [facility] [address], ([facility]) [place] [address] , Ph. 2019-07-17 2019-07-17 [facility] [place] - [id number] [facility] 00:00:00 00:00:00 Naveed Ashley mullins MD: [id number] [facility] - [facility]_HOU_Sugirene [facility] [address], ([facility]) [place] [address] , Ph. 2019-04-26 2019-04-26 Outpatient [id number] 07:22:00 07:22:00 [facility] l Results Test Description Test Time Test Comments Results Result Sourc e Comments SCR MAMM BILATERAL 2019-04-27 - SCR MAMM BILATERAL [facility] CAD DIGITAL 07:52:28 [facility] CAD DIGITALBILATERAL DIGITAL SCREENING MAMMOGRAM 3D/2D WITH CAD: 04/25/2019CLINICAL: Asymptomatic. Digital breast tomosynthesis was performed in addition to routine CC and MLO views. Current mammographic images were evaluated by either a [employer] M-Vu or a [employer] ImageChecker CAD (computer aided detection system). Comparison is made to exams dated 06/17/2016 mammogram, 05/28/2014 mammogram, and 08/07/2008 mammogram - [facility]. The tissue of both breasts [...] one year. Arnold Doyle M.D. et/penrad:04/27/2019 07:52:28 Remote Sensing Scientist: [place] BENEDICT RT(M), [facility] sent: BIRADS 1-2 Normal Mammogram BI-RADS: 2 Benign
[2020-05-14] MEDS ORDERED: ONDANSETRON 4 MG (ODT) TAB ONE (16:26)
[2020-05-14] MEDS ORDERED: MORPHINE 4 MG/ML SYR ONE (16:26)
--- NOTE | 2020-05-14 17:26 | RAD REPORT ---
EXAM DESCRIPTION: RAD - Shoulder Left 2 View - 05/14/2020 4:50 pm CLINICAL HISTORY: Left shoulder pain status post fall FINDINGS: No fracture or dislocation is seen.
--- NOTE | 2020-05-14 17:27 | RAD REPORT ---
EXAM DESCRIPTION: RAD - Knee Right 3 View - 05/14/2020 4:50 pm CLINICAL HISTORY: Right knee pain status post injury FINDINGS: No fracture or dislocation is seen. If patient continues to have symptoms to suggest an occult fracture, ligamentous or meniscal injury M RI would be recommended
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
[2020-05-14 19:02] VITALS: TEMP 97.6
[2020-05-14 19:03] VITALS: O2SAT 100
[2020-05-14 19:07] VITALS: BP 95/54
== END 2020-05-14 18:52 | disposition home or self-care (01) ==
LOC: ER 15:39
DX: M23.91 Unspecified internal derangement of right knee (principal); M25.512 Pain in left shoulder; W06.XXXA Fall from bed, initial encounter; Y93.89 Activity, other specified; Y92.003 Bedroom of unspecified non-institutional (private) residence as the place of occurrence of the external cause; Z88.2 Allergy status to sulfonamides; Z91.013 Allergy to seafood; I10 Essential (primary) hypertension; I50.9 Heart failure, unspecified
CPT/HCPCS: 96372; 99284

== ENCOUNTER 2020-06-17 20:55 | Emergency (ER) | payer OTHER ==
--- OUTSIDE RECORDS SUMMARY | 2020-06-17 20:57 | XMS REPORT | Continuity of Care Document ---
:1960 Author Organization [facility] t Address [address] [place] [address] Care Team Providers Name Role Phone Maia [...] C [facility] l effusion l effusion 3-14 Pamela kes - 00:00: Medical 00 Center Allergies, Adverse Reactions, Alerts This patient has no known allergies or adverse reactions. Family History Family Member Diagnosis Comments Start Date Stop Date Source Natural brother Hypertension [facility] Natural brother Stroke [facility] Natural father Alcohol abuse [facility] Natural father Heart disease [facility] Natural father Hypertension [facility] Natural mother Early [facility] Natural sister Hypertension [facility] Social History Social Habit Start Date Stop Date Quantity Comments Source Sex Assigned At [facility] Tobacco use and 2015-08-13 2015-08-13 Never used [facility] - exposure 00:00:00 00:00:00 [facility] Alcohol intake 2015-08-13 2015-08-13 Current [facility] es - 00:00:00 00:00:00 non-drinker of [facility] nter alcohol (finding) Smoking Status Start Date Stop Date Source Never smoker [facility] Medications Ordered Filled Start Stop Current Ordering [...] by mouth [facility] tablet 15:36: daily. [facility] Center cyclobenzap Yes 10mg Take [address] [facility] 3-29 by mouth 2 [facility] - (FLEXERIL) 15:36: (two) Medica l 10 MG 54 times Center tablet daily as needed for Muscle spasms. simvastatin Yes 20mg QD Take [address] (ZOCOR) 20 3-29 by mouth [facility] - MG tablet 15:36: nightly. [facility] [place] [facility] Center insulin Yes To use 30 [...] Dispense Medical Insulin Pen 00 as Center [facility] 4 written, mm x 32 G do not substitute . Brand medically necessary. To use 6 a day. PROAIR HFA Yes 8.5g Inhale 8.[address] 90 3-07 g by mouth [facility] - mcg/actuati 00:00: via Medica l on inhaler [address] needed Inhale two puffs by mouth every 4-6 hours as needed. albuterol albuterol No albuterol [facility] sulfate HFA sulfate HFA sulfate Family 90 90 HFA 90 [facility] mcg/actuati mcg/actuati mcg/actuat e on aerosol on aerosol ion inhaler inhaler aerosol inhaler alprazolam alprazolam No 1 alprazolam [facility] 0.25 mg 0.25 mg 0.25 mg Family tablet Take tablet Take tablet Practic 1 tablet as 1 tablet as Take 1 e needed by needed by tablet as oral route oral route needed by for 30 for 30 oral route days. days. for 30 days. amiodarone amiodarone No amiodarone [facility] 200 mg 200 mg 200 mg Family [...] BD Insulin BD Insulin No BD Insulin [facility] Syringe Syringe Syringe [facility] Ultra-Fine Ultra-Fine Ultra-Fine Practic 0.3 mL 31 0.3 mL 31 0.3 mL 31 e gauge x gauge x gauge x /16" 16" 16" bumetanide bumetanide No .5 Q1D bumetanide [facility] 2 mg tablet 2 mg tablet 2 [...] folic acid No 1 Q1D folic acid [facility] 1 mg tablet 1 mg tablet 1 mg F amily Take 1 Take 1 tablet Practic tablet tablet Take 1 e every day every day tablet by oral by oral every day route. route. by oral route. lisinopril lisinopril No 1 Q1D lisinopril [facility] 5 mg tablet 5 mg tablet 5 mg F amily Take 1 Take 1 tablet Practic tablet tablet Take 1 e every day every day tablet by oral by oral every day route for route for by oral 90 days. 90 days. route for 90 days. magnesium magnesium No 1 Q1D magnesium [facility] 400 mg (as 400 mg (as 400 mg (as [facility] magnesium magnesium magnesium Practic oxide) oxide) oxide) e tablet Take tablet Take tablet 1 tablet 1 tablet Take 1 every day every day tablet by oral by oral every day route. route. by oral route. multivitami multivitami No multivitam [facility] n 1 po qd n 1 po qd in 1 po qd Family Practic e Novolin N Novolin N No Novolin N Village Flexpen Flexpen Flexpen Family Practic e omeprazole omeprazole No 1capsul Q1D omeprazole [facility] 40 mg 40 mg e(s) 40 mg [...] days. paroxetine paroxetine No 1 Q1D paroxetine [facility] 20 mg 20 mg 20 mg Family tablet Take tablet Take tablet Practic 1 tablet 1 tablet Take 1 e every day every day tablet by oral by oral every day route for route for by oral 30 days. 30 days. route for 30 days. sertraline sertraline No sertraline [facility] 50 mg 50 mg 50 mg Family tablet tablet tablet Practic e simvastatin simvastatin No 1 Q1D simvastati [facility] 20 mg 20 mg n 20 mg [...] Source Name Name influenza, influenza, 2019-03-09 Completed [facility] unspecified unspecified 00:00:00 Practice formulation formulation Vital Signs Vital Name Observation Time Observation Value Comments Source BP Diastolic 2019-08-07 00:00:00 76 mm[Hg] [facility] Practice Height 2019-08-07 00:00:00 68.5 [in_i] [facility] BP Systolic 2019-08-07 00:00:00 120 mm[Hg] [facility] BP Diastolic 2019-07-17 00:00:00 70 mm[Hg] [facility] Height 2019-07-17 00:00:00 68.5 [in_i] [facility] BMI (Body Mass 2019-07-17 00:00:00 34.5 kg/m2 [facility] Index) Practice BP Systolic 2019-07-17 00:00:00 126 mm[Hg] [facility] Body Weight 2019-07-17 00:00:00 230 [lb_av] [facility] Procedures This patient has no known procedures. Plan of Care Planned Activity Planned Date Details Comments Source Diagnostic Test Pending 2019-08-07 glucose, Vill age Family 00:00:00 fingerstick, Practice blood [code = glucose, fingerstick, blood] Diagnostic Test Pending 2019-08-07 BMP, serum or Raya nuno Family 00:00:00 plasma [code = Practice BMP, serum or plasma] Instructions [facility] Encounters Start End Encounter Admission Attending Care Care Encounter Source Date/Time Date/Time Type Type Clinicians Facility Department ID 2019-09-07 Outpatient [facility] [id number] [facility] 10:28:52 2019-08-07 2019[facility]08-07 [facility] [place] - [id number] [facility] 00:00:00 00:00:00 Naveed Ashley mullins MD: [id number] Medical - Prac [facility]_HOJessica_Cain Beltran r [facility] [address], ([facility] [place] [address] , Ph. 2019-07-17 2019-07-17 [facility] [place] - [id number] [facility] 00:00:00 00:00:00 Naveed Ashley mullins MD: [id number] Medical - Prac [facility]_HOJessica_Cain Beltr[place] r [facility] [address], ([place]) [place] [address] , Ph. 2019-04-26 2019-04-26 Outpatient [id number] 07:22:00 07:22:00 [facility] Results Test Description Test Time Test Comments Results Result Sourc e Comments SCR MAMM BILATERAL 2019-04-27 - SCR MAMM BILATERAL ELENA CAD DIGITAL 07:52:28 ELENA CAD DIGITALBILATERAL DIGITAL SCREENING MAMMOGRAM 3D/2D WITH CAD: 04/25/2019CLINICAL: Asymptomatic. Digital breast tomosynthesis was performed in addition to routine CC and MLO views. Current mammographic images were evaluated by either a [employer] M-Vu or a [employer] ImageChecker CAD (computer aided detection system). Comparison is made to exams dated 06/17/2016 mammogram, 05/28/2014 mammogram, and 08/07/2008 mammogram - [facility]. The tissue of both breasts [...] one year. Arnold Doyle M.D. et/penrad:04/27/2019 07:52:28 School Administrator: Asia BENEDICT RT(M), [facility]: BIRADS 1-2 Normal Mammogram BI-RADS: 2 Benign
--- OUTSIDE RECORDS SUMMARY | 2020-06-17 20:57 | XMS REPORT | Clinical Summary ---
:1960 Author Organization [facility] Address [address] [place] [address] Care Team Providers Name Role Phone Laurel Burris MD Primary Care Provider [phone] Allergies No Known Allergies Medications Medication Sig [...] 600 each 3 08/04/2015 Active Insulin Pen [place] 4 Dispense as mm x 32 G [...] Not on file Results Not on fileafter 06/17/2019 Insurance Payer Benefit Plan / Subscriber ID Effective Phone Address T ype Group Dates CIGNA CIGNA [id number] 2015-Pr [facility] esent Contracted Advance Directives For more information, please contact: [phone] Code Status Date Activated Date Inactivated Comments Full Code 07/29/2015 8:45 PM 08/07/2015 6:28 PM This code status was determined by: Patient
[2020-06-18 00:25] LABS: SARS-COV-2 RT PCR NEGATIVE (NEGATIVE)
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
[2020-06-18] MEDS ORDERED: dexAMETHasone 4 MG/ML VIAL ONE (00:47)
[2020-06-18 05:32] VITALS: TEMP 97.7; O2SAT 100
[2020-06-18 05:33] VITALS: BP 116/68
== END 2020-06-18 00:43 | disposition home or self-care (01) ==
LOC: ER 20:55
DX: J06.9 Acute upper respiratory infection, unspecified (principal); Z20.822 Contact with and (suspected) exposure to COVID-19; I11.0 Hypertensive heart disease with heart failure; I50.9 Heart failure, unspecified; E11.9 Type 2 diabetes mellitus without complications; E78.5 Hyperlipidemia, unspecified; M06.9 Rheumatoid arthritis, unspecified; D64.9 Anemia, unspecified
CPT/HCPCS: 0240U; J1100; 96372; 99283

== ENCOUNTER 2020-09-06 21:31 | Observation (INO) | payer OTHER ==
--- OUTSIDE RECORDS SUMMARY | 2020-09-06 21:35 | XMS REPORT | Continuity of Care Document ---
:1960 Author Organization [facility] t Address [address] [place] [address] Care Team Providers Name Role Phone Maia [...] Date Stop Date Source Natural brother Hypertension [facility] Natural brother Stroke [facility] Natural father Alcohol abuse [facility] Natural father Heart disease [facility] Natural father Hypertension [facility] Natural mother Early [facility] Natural sister Hypertension [facility] Social History Social Habit Start Date Stop Date Quantity Comments Source Sex Assigned At [facility] Tobacco use and 2015-08-13 2015-08-13 Never used [facility] - exposure 00:00:00 00:00:00 [facility] Alcohol intake 2015-08-13 2015-08-13 Current [facility] es - 00:00:00 00:00:00 non-drinker of [facility] nter alcohol (finding) Smoking Status Start Date Stop Date Source Never smoker [facility] Medications Ordered Filled Start Stop Current [...] by mouth [facility] - tablet 15:36: daily. [facility] Center cyclobenzap Yes 10mg Take [address] [facility] 3-29 by mouth 2 [facility] - (FLEXERIL) 15:36: (two) Medica l 10 MG 54 times Center tablet daily as needed for Muscle spasms. simvastatin Yes 20mg QD Take [address] (ZOCOR) 20 3-29 by mouth [facility] - MG tablet 15:36: nightly. [facility] Center insulin Yes To use [...] Dispense Medical Insulin Pen 00 as Center Anatone 4 written, mm x 32 G do not substitute . Brand medically necessary. To use 6 a day. PROAIR HFA Yes 8.5g Inhale 8.[address] 90 3-07 g by mouth [facility] - mcg/actuati 00:00: via Medica l on inhaler [address] needed Inhale two puffs by mouth every 4-6 hours as needed. albuterol albuterol No albuterol [facility] sulfate HFA sulfate HFA sulfate Family 90 90 HFA 90 [facility] mcg/actuati mcg/actuati mcg/actuat e on aerosol on aerosol ion inhaler inhaler aerosol inhaler alprazolam alprazolam No 1 alprazolam [facility] 0.25 mg 0.25 mg 0.25 mg Family tablet Take tablet Take tablet Pract[facility] 1 tablet as 1 tablet as Take 1 e needed by needed by tablet as oral route oral route needed by for 30 for 30 oral route days. days. for 30 days. amiodarone amiodarone No amiodarone [facility] 200 mg 200 mg 200 mg [...] BD Insulin No BD Insulin [facility] Syringe Syringe Syringe [facility] Ultra-Fine Ultra-Fine Ultra-Fine Pract[facility] 0.3 mL 31 0.3 mL 31 0.3 mL 31 e gauge x gauge x gauge x /16" 16" 16" bumetanide bumetanide No .5 Q1D bumetanide [facility] 2 mg tablet 2 mg tablet [...] No 1 Q1D folic acid [facility] 1 mg tablet 1 mg tablet 1 mg F amily Take 1 Take 1 tablet Pract[facility] tablet tablet Take 1 e every day every day tablet by oral by oral every day route. route. by oral route. lisinopril lisinopril No 1 Q1D lisinopril [facility] 5 mg tablet 5 mg tablet 5 mg F amily Take 1 Take 1 tablet Pract[facility] tablet tablet Take 1 e every day every day tablet by oral by oral every day route for route for by oral 90 days. 90 days. route for 90 days. magnesium magnesium No 1 Q1D magnesium [facility] 400 mg (as 400 mg (as 400 mg (as [facility] magnesium magnesium magnesium [facility] oxide) oxide) oxide) e tablet Take tablet Take tablet 1 tablet 1 tablet Take 1 every day every day tablet by oral by oral every day route. route. by oral route. multivitami multivitami No multivitam [facility] n 1 po qd n 1 po qd in 1 po qd Family Practic e Novolin N Novolin N No Novolin N [facility] Flexpen Flexpen Flexpen Family Practic e omeprazole omeprazole No 1capsul Q1D omeprazole [facility] 40 mg 40 mg e(s) 40 [...] paroxetine No 1 Q1D paroxetine [facility] 20 mg 20 mg 20 mg Family tablet Take tablet Take tablet Practic 1 tablet 1 tablet Take 1 e every day every day tablet by oral by oral every day route for route for by oral 30 days. 30 days. route for 30 days. sertraline sertraline No sertraline [facility] 50 mg 50 mg 50 mg Family tablet tablet tablet Practic e simvastatin simvastatin No 1 Q1D simvastati [facility] 20 mg 20 mg n 20 [...] Source Name Name influenza, influenza, 2019-03-09 Completed [facility] unspecified unspecified 00:00:00 Practice formulation formulation Vital Signs Vital Name Observation Time Observation Value Comments Source BP Diastolic 2019-08-07 00:00:00 76 mm[Hg] [facility] Practice Height 2019-08-07 00:00:00 68.5 [in_i] [facility] BP Systolic 2019-08-07 00:00:00 120 mm[Hg] [facility] BP Diastolic 2019-07-17 00:00:00 70 mm[Hg] [facility] Height 2019-07-17 00:00:00 68.5 [in_i] [facility] BMI (Body Mass 2019-07-17 00:00:00 34.5 kg/m2 [place] Index) Practice BP Systolic 2019-07-17 00:00:00 126 mm[Hg] [facility] Body Weight 2019-07-17 00:00:00 230 [lb_av] [facility] Procedures This patient has no known procedures. Plan of Care Planned Activity Planned Date Details Comments Source Diagnostic Test Pending 2019-08-07 glucose, Vill age Family 00:00:00 fingerstick, Practice blood [code = glucose, fingerstick, blood] Diagnostic Test Pending 2019-08-07 BMP, serum or Raya nuno Family 00:00:00 plasma [code = Practice BMP, serum or plasma] Instructions [facility] Encounters Start End Encounter Admission Attending Care Care Encounter Source Date/Time Date/Time Type Type Clinicians Facility Department ID 2019-09-[address] [facility] [id number] [facility] 10:28:52 2019-08-07 2019[facility]08-07 [facility] [place] - [id number] [facility] 00:00:00 00:00:00 Naveed Ashley mullins MD: [id number] Medical - [facility]_HOJessica_Cain Beltran r [facility] [address], ([facility] [place] [address] , Ph. 2019-07-17 2019-07-17 [facility] [place] - [id number] [facility] 00:00:00 00:00:00 Naveed Ashley mullins MD: [id number] Medical - [facility]_HOJessica_Cain Beltran r [facility] [address], ([place]) [place] [address] , Ph. 2019-04-26 2019-04-26 Outpatient [id number] 07:22:00 07:22:00 [facility] l Results Test Description Test Time Test Comments Results Result Sourc e Comments SCR MAMM BILATERAL 2019-04-27 - SCR MAMM BILATERAL [facility] CAD DIGITAL 07:52:28 ELENA CAD DIGITALBILATERAL DIGITAL SCREENING MAMMOGRAM 3D/2D WITH CAD: 04/25/2019CLINICAL: Asymptomatic. Digital breast tomosynthesis was performed in addition to routine CC and MLO views. Current mammographic images were evaluated by either a [employer] M-Vu or a [employer] ImageChecker CAD (computer aided detection system). Comparison is made to exams dated 06/17/2016 mammogram, 05/28/2014 mammogram, and 08/07/2008 mammogram - [facility]. The tissue of both breasts [...] one year. Arnold Doyle M.D. 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
[2020-09-07 00:14] LABS: Absolute Lymphocytes (CBC) 3.8 K/uL (0.7-4.9); Basophils % 1.5 % (0-1.3); Lymphocytes % 29.5 % (15.3-44.8); MPV 7.5 fL (7.6-11.3); RBC Red Blood Cell Count 3.58 M/uL (3.86-4.86)
[2020-09-07 00:15] LABS: Protime INR 0.97
[2020-09-07] MEDS ORDERED: ONDANSETRON 4 MG/2 ML VIAL ONE ×2 (00:19→08:28)
[2020-09-07] MEDS ORDERED: MORPHINE 2 MG/ML SYR ONE ×3 (00:19→08:28)
[2020-09-07 00:29] LABS: ALT/SGPT 22 U/L (12-78); AST/SGOT 32 U/L (15-37); Albumin 3.1 g/dL (3.4-5.0); Alkaline Phosphatase 88 U/L (45-117); BUN Blood Urea Nitrogen 15 mg/dL (7-18); Bicarbonate 32 mmol/L (21-32); Bilirubin Direct < 0.1 mg/dL (0-0.2); Bilirubin Total 0.2 mg/dL (0.2-1.0); Glucose Level 163 mg/dL (74-106); Magnesium 1.9 mg/dL (1.8-2.4); NT PRO-BNP 1436 pg/mL (<125); Potassium 4.1 mmol/L (3.5-5.1); Protein, Total 8.1 g/dL (6.4-8.2); Sodium Level 140 mmol/L (136-145); Troponin (Emerg Dept Use Only) 0.21 ng/mL (0.0-0.045)
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
[2020-09-07] MEDS ORDERED: FUROSEMIDE 40 MG/4 ML VIAL ONE (01:19)
[2020-09-07] MEDS ORDERED: ASPIRIN 81 MG CHEWABLE TABLET ONE (01:23)
[2020-09-07 02:05] LABS: Urine Blood Negative (Negative); Urine Glucose Negative (Negative); Urine Protein Negative (Negative); Urine Specific Gravity 1.015 (1.005-1.030)
[2020-09-07 02:31] VITALS: BMI 34.8
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
[2020-09-07] MEDS ORDERED: ONDANSETRON 4 MG/2 ML VIAL IV PRN (03:16)
[2020-09-07] MEDS ORDERED: NITROGLYCERIN 0.4 MG/TAB SL PRN (03:16)
[2020-09-07] MEDS ORDERED: ZOLPIDEM TARTRATE 5 MG TABLET PO PRN (03:16)
[2020-09-07] MEDS ORDERED: ACETAMINOPHEN 500 MG TAB PO PRN (03:16)
[2020-09-07] MEDS ORDERED: ACETAMINOPHEN 500 MG TAB ONE (04:31)
[2020-09-07 04:46] LABS: Absolute Lymphocytes (CBC) 3.5 K/uL (0.7-4.9); Basophils % 0.7 % (0-1.3); Hematocrit 31.9 % (36.0-45.0); Lymphocytes % 31.6 % (15.3-44.8); MPV 7.4 fL (7.6-11.3); RBC Red Blood Cell Count 3.46 M/uL (3.86-4.86)
[2020-09-07 05:04] LABS: Bilirubin Total 0.3 mg/dL (0.2-1.0); Magnesium 1.8 mg/dL (1.8-2.4); Phosphorus 3.7 mg/dL (2.5-4.9); Potassium 4.1 mmol/L (3.5-5.1); Protein, Total 7.6 g/dL (6.4-8.2)
[2020-09-07 05:04] LABS: Urine Appearance CLEAR (Clear); Urine Bilirubin NEGATIVE (Negataive); Urine Blood NEGATIVE (Negative); Urine Color YELLOW (Yellow); Urine Glucose NEGATIVE (Negative); Urine Protein NEGATIVE (Negative); Urine Specific Gravity <=1.005 (1.005-1.030); Urine Urobilinogen 0.2 mg/dL (0.2-1.0)
[2020-09-07 05:19] LABS: Urine Microscopic Reflex NO UMIC
[2020-09-07 05:20] LABS: Thyroid Stimulating Hormone 1.1 uIU/mL (0.360-3.740); Troponin I 0.2 ng/mL (0.0-0.045)
[2020-09-07] MEDS ORDERED: MAGNESIUM SULFATE 1 gm IVPB 1 GM/100 ML BAG IV ONE ×2 (06:03→08:01)
[2020-09-07] MEDS ORDERED: MAGNESIUM SULFATE 1 gm IVPB 0 GM/0 ML BAG IV ONE (06:24)
[2020-09-07] MEDS: INSULIN -REGULAR HUMAN 50 UNIT/0.5 ML ML SQ SCH ×4 (07:30→21:00)
--- NOTE | 2020-09-07 07:56 | EKG ---
Test Date: 2020-09-07 Test Time: 00:05:32 Starch Mangle Tender: L[place]TON MEASUREMENT RESULTS: Intervals: Rate: 65 NV: 130 QRSD: 172 QT: 484 QTc: 503 [place]: P: 36 NV: 130 QRS: -79 T: 35 INTERPRETIVE STATEMENTS: AV sequential or dual chamber electronic pacemaker Compared to ECG 03/27/2020 09:32:16 Sinus rhythm no longer present Atrial abnormality no longer present Left-axis deviation no longer present Electronically Signed On 09-07-20 07:56:06 CDT by Dung Coleman
[2020-09-07] MEDS: MORPHINE 2 MG/ML SYR IV PRN ×3 (08:18→21:46)
[2020-09-07] MEDS: ASPIRIN EC 81 MG TAB PO SCH (08:22)
[2020-09-07] MEDS ORDERED: HEPARIN 5000 UNIT/ML 1 ML VIAL ONE (08:28)
[2020-09-07] MEDS ORDERED: ASPIRIN EC 81 MG TAB PO ONE (08:29)
[2020-09-07] MEDS: BUMETANIDE 1 MG/4 ML VIAL IV SCH (09:00)
[2020-09-07] MEDS: HEPARIN 5000 UNIT/ML 1 ML VIAL SQ SCH ×2 (09:00→17:03)
--- NOTE | 2020-09-07 12:01 | RAD REPORT ---
EXAM DESCRIPTION: RAD - Chest Single View - 09/07/2020 12:08 am CLINICAL HISTORY: CHEST PAIN Chest pain. COMPARISON: Chest Single View dated 03/27/2020; Chest Pa And Lat (2 Views) dated 02/22/2019; Chest Pa And Lat (2 Views) dated 02/18/2019; Chest Pa And Lat (2 Views) dated 10/04/2018 FINDINGS: Portable technique limits examination quality. The lungs are grossly clear. The heart is normal in size. No displaced fractures.Dual lead pacer alaina ce is present. IMPRESSION: No acute intrathoracic process suspected.
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
--- NOTE | 2020-09-07 14:16 | P.PN ---
Date of Service: 09/07/20 Patient seen and examined. She is complaining of recent fall. She stated she developed left shoulder pain and back pain from the fall. CT scans done were unremarkable. Currently denies any chest pain. Telemetry shows paced rhythm at 60. Patient seen by Dr. Coleman. Plan: Troponin up to 0.2 and flat. ACS is unlikely. Dr. Coleman input appreciated and he recommend beta-jose but patient is currently bradycardic. Will continue monitoring. She is on aspirin and Lipitor. Pain management as needed. Monitor on telemetry, start metoprolol once patient is no longer bradycardic.
[2020-09-07] MEDS ORDERED: ATORVASTATIN 20 MG TAB PO SCH (21:00)
[2020-09-08] MEDS: HEPARIN 5000 UNIT/ML 1 ML VIAL SQ SCH ×2 (01:28→08:02)
[2020-09-08 06:02] LABS: Absolute Lymphocytes (CBC) 3.1 K/uL (0.7-4.9); Basophils % 1.1 % (0-1.3); Lymphocytes % 35.7 % (15.3-44.8); MPV 7.8 fL (7.6-11.3); RBC Red Blood Cell Count 3.25 M/uL (3.86-4.86)
[2020-09-08 06:12] LABS: Albumin 2.6 g/dL (3.4-5.0); Bilirubin Total 0.3 mg/dL (0.2-1.0); Magnesium 1.9 mg/dL (1.8-2.4); Phosphorus 4.1 mg/dL (2.5-4.9); Potassium 4.5 mmol/L (3.5-5.1); Protein, Total 6.9 g/dL (6.4-8.2)
[2020-09-08] MEDS: INSULIN -REGULAR HUMAN 50 UNIT/0.5 ML ML SQ SCH ×2 (07:30→11:30)
[2020-09-08] MEDS: MORPHINE 2 MG/ML SYR IV PRN (08:01)
[2020-09-08] MEDS: ASPIRIN EC 81 MG TAB PO SCH (08:01)
[2020-09-08 10:05] VITALS: BP 112/56
[2020-09-08 10:58] VITALS: O2SAT 96
[2020-09-08] MEDS ORDERED: HYDROCODONE/APAP 5/325 MG TAB PO PRN (11:49)
--- NOTE | 2020-09-08 12:02 | P.DS ---
Admission Date: 09/07/20 Discharge Date: 09/08/20 Disposition: ROUTINE DISCHARGE Discharge Condition: FAIR Reason for Admission: chest pain Consultations: Cardiology-Dr. Coleman. - Problems (1) Shoulder pain Current Visit: Yes Status: Acute (2) Rheumatoid arthritis Current Visit: Yes Status: Acute (3) Elevated troponin Current Visit: Yes Status: Acute (4) Chest pain Onset Date: 07/15/15 Current Visit: No Status: Acute Qualifiers: Chest pain type: unspecified Qualified Code(s): R07.9 - Chest pain, unspecified (5) Diabetes mellitus, type II, insulin dependent Onset Date: 07/29/15 Current Visit: No Status: Chronic (6) Hyperlipidemia Current Visit: No Status: Chronic Qualifiers: Hyperlipidemia type: unspecified Qualified Code(s): E78.5 - Hyperlipidemia, unspecified Brief History of Present Illness: 60 yo female with with a past medical history of depression, CHF, DM, HTN, CKD III, RA and a pacemaker presented to the ED with bilateral shoulder pain, chest, increased swelling in her legs for the past 2 weeks. She reported a recent fall. She also describes neck and shoulder spasms at the same time. She stated she is under a great deal of stress taking care of her 11 year old granddaughter. Patient was here 03/2020 for chest pain. She had a normal stress test and ECHO at that time. She had a normal cardiac catheterization in September 2019. Initial troponin was elevated to 0.2. Patient was placed under observation for ACS rule out. Hospital Course: Troponin trended flat. Patient seen by cardiology, and elevated troponin deemed secondary to demand ischemia. Patient had multiple focal point of pain including her bilateral shoulders and bilateral ankle. I suspect her pain is related to rheumatoid arthritis. 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 Patient declines steroids because of steroid disease hyperglycemia. She was put on IV morphine for pain. Her LDL cholesterol was low. ACS has been ruled out. Patient prescribed Fordyce for a few days for pain. She is informed to follow with her warehouse guard for further management of her rheumatoid arthritis. Vital Signs/Physical Exam: Temp Pulse Resp BP Pulse Ox 98 F 63 14 112/56 L 97 09/08/20 08:00 09/08/20 08:00 09/08/20 08:01 09/08/20 08:00 09/08/20 08:01 General: Alert, In no apparent distress, Oriented x3 HEENT: Mucous membr. moist/pink Neck: JVD not distended Respiratory: Clear to auscultation bilaterally, Normal air movement Cardiovascular: No edema, Regular rate/rhythm, Normal S1 S2 Gastrointestinal: Normal bowel sounds, Soft and benign, Non-distended, No tenderness Musculoskeletal: Other (Mild left ankle tenderness.) Integumentary: No rashes Neurological: Normal speech, Normal strength at 5/5 x4 extr Laboratory Data at Discharge: WBC 8.80 K/uL (4.3-10.9) D 09/08/20 05:24 Hgb 10.1 g/dL (12.0-15.0) L 09/08/20 05:24 Hct 30.0 % (36.0-45.0) L 09/08/20 05:24 Plt Count 499 K/uL (152-406) H 09/08/20 05:24 PT 11.2 SECONDS (9.5-12.5) 09/06/20 23:55 INR 0.97 09/06/20 23:55 Sodium 139 mmol/L (136-145) 09/08/20 05:24 Potassium 4.5 mmol/L (3.5-5.1) 09/08/20 05:24 BUN 16 mg/dL (7-18) 09/08/20 05:24 Creatinine 1.40 mg/dL (0.55-1.3) H 09/08/20 05:24 Glucose 160 mg/dL (74-106) H 09/08/20 05:24 Phosphorus 4.1 mg/dL (2.5-4.9) 09/08/20 05:24 Magnesium 1.9 mg/dL (1.8-2.4) 09/08/20 05:24 Total Bilirubin 0.3 mg/dL (0.2-1.0) 09/08/20 05:24 AST 27 U/L (15-37) 09/08/20 05:24 ALT 17 U/L (12-78) 09/08/20 05:24 Alkaline Phosphatase 73 U/L (45-117) 09/08/20 05:24 Troponin I 0.20 ng/mL (0.0-0.045) H 09/07/20 07:53 Triglycerides 250 mg/dL (<150) H 09/08/20 05:24 Cholesterol 126 mg/dL (<200) 09/08/20 05:24 HDL Cholesterol 38 mg/dL (40-60) L 09/08/20 05:24 Cholesterol/HDL Ratio 3.32 09/08/20 05:24 Home Medications: ALPRAZolam [Xanax*] 0.25 mg PO BEDTIME 03/27/20 Albuterol Sulfate [Albuterol Sulfate 0.083% Neb Soln] 2.5 mg NEB TID 03/27/20 Aspirin 81 mg PO DAILY 03/27/20 Bumetanide 2 mg PO DAILY 03/27/20 Insulin NPH Human Isophane [Novolin N] 10 units SQ BEDTIME 03/27/20 Insulin NPH Human [Novolin N (Humulin N)*] 15 units SQ AC 03/27/20 Iron,Carbonyl/Ascorbic Acid [Iron 100-Vitamin C Tablet] 1 tab PO DAILY 03/27/20 Lisinopril [Zestril] 5 mg PO BEDTIME 03/27/20 PARoxetine HCL [Paroxetine HCl] 20 mg PO DAILY 03/27/20 Semaglutide [Ozempic] 0.5 units SQ WMP 03/27/20 Cyclobenzaprine [Flexeril*] 10 mg PO BID #6 tab 03/28/20 Pantoprazole [Protonix Tab*] 40 mg PO DAILY #30 tab 03/28/20 Simvastatin 20 mg PO BEDTIME #30 03/28/20 Amitriptyline [Elavil*] 50 mg PO DAILY 09/07/20 Atorvastatin Calcium 40 mg PO DAILY 09/07/20 Duloxetine HCl 60 mg PO DAILY 09/07/20 Folic Acid 1 mg PO DAILY 09/07/20 Pregabalin [Lyrica*] 75 mg PO 09/07/20 Hydrocodone 5/APAP 325 [Fordyce 5/325*] 1 tab PO Q6H PRN #15 tab 09/08/20 Nitroglycerin [Nitrostat*] 0.4 mg SL UD PRN #30 tab 09/08/20 New Medications: Nitroglycerin [Nitrostat*] 0.4 mg SL UD PRN #30 tab PRN Reason: Pain Scale 2-4 (Mild) Hydrocodone 5/APAP 325 [Fordyce 5/325*] 1 tab PO Q6H PRN #15 tab PRN Reason: Pain Scale 5-7 (Moderate) Diet: ADA Activity: Ad ino Followup: Dung Coleman MD [ACTIVE - CAN ADMIT] - 1-2 Weeks Khalida Parks MD [Primary Care Provider] - 1-2 Weeks
[2020-09-08] MEDS: BUMETANIDE 1 MG/4 ML VIAL IV SCH (12:13)
[2020-09-08 14:01] VITALS: TEMP 98.7
[2020-09-09] MEDS ORDERED: predniSONE 20 MG TAB PO SCH (09:00)
== END 2020-09-08 14:55 | disposition home or self-care (01) ==
LOC: ER 21:31 → ERHOLD 09-07 02:07 → 2ND 09-07 14:31
PROVIDERS: ADMIT Internal Medicine; ATTEND Internal Medicine
DX: R07.89 Other chest pain (principal); I13.0 Hypertensive heart and chronic kidney disease with heart failure and stage 1 through stage 4 chronic kidney disease, or unspecified chronic kidney disease; I50.30 Unspecified diastolic (congestive) heart failure; N18.30 Chronic kidney disease, stage 3 unspecified; E11.22 Type 2 diabetes mellitus with diabetic chronic kidney disease; D63.1 Anemia in chronic kidney disease; R00.1 Bradycardia, unspecified; E11.40 Type 2 diabetes mellitus with diabetic neuropathy, unspecified; R77.8 Other specified abnormalities of plasma proteins; M06.9 Rheumatoid arthritis, unspecified; M25.512 Pain in left shoulder; M25.511 Pain in right shoulder; M54.9 Dorsalgia, unspecified; E78.5 Hyperlipidemia, unspecified; F32.9 Major depressive disorder, single episode, unspecified; G89.29 Other chronic pain; I27.20 Pulmonary hypertension, unspecified; M54.30 Sciatica, unspecified side; K58.1 Irritable bowel syndrome with constipation; E66.9 Obesity, unspecified; Z68.34 Body mass index [BMI] 34.0-34.9, adult; Z20.822 Contact with and (suspected) exposure to COVID-19; Z95.0 Presence of cardiac pacemaker; Z79.82 Long term (current) use of aspirin; Z79.4 Long term (current) use of insulin; Z88.2 Allergy status to sulfonamides; Z91.013 Allergy to seafood; Z79.899 Other long term (current) drug therapy; Z90.81 Acquired absence of spleen; Z82.49 Family history of ischemic heart disease and other diseases of the circulatory system
CPT/HCPCS: 93005; 85025 ×3; 80048; 36415 ×2; 83735 ×3; 84100 ×2; 85610; 80061 ×2; 82947 ×6; 80076; 84443; 81003 ×2; 83036; 84484 ×3; 84439; 80053 ×2; 83880; 71045; 94760 ×3; 96375; 96374; 99285; U0003; J1940; J1644 ×4; J3475; J2270 ×6; J2405 ×3; G0378

== ENCOUNTER 2020-11-19 23:07 | Emergency (ER) | payer OTHER ==
[2020-11-20 01:27] LABS: Absolute Lymphocytes (CBC) 2.9 K/uL (0.7-4.9); Basophils % 0.8 % (0-1.3); Hematocrit 31.1 % (36.0-45.0); Lymphocytes % 23.5 % (15.3-44.8); MPV 7.8 fL (7.6-11.3); RBC Red Blood Cell Count 3.36 M/uL (3.86-4.86)
[2020-11-20 01:28] LABS: Protime INR 0.95
[2020-11-20 01:42] LABS: ALT/SGPT 19 U/L (12-78); AST/SGOT 22 U/L (15-37); Albumin 3.1 g/dL (3.4-5.0); Alkaline Phosphatase 73 U/L (45-117); BUN Blood Urea Nitrogen 17 mg/dL (7-18); Bicarbonate 28 mmol/L (21-32); Bilirubin Direct < 0.1 mg/dL (0-0.2); Bilirubin Total 0.2 mg/dL (0.2-1.0); Glucose Level 172 mg/dL (74-106); Lipase 152 U/L (73-393); Potassium 3.5 mmol/L (3.5-5.1); Protein, Total 7.2 g/dL (6.4-8.2); Sodium Level 139 mmol/L (136-145)
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
[2020-11-20 06:23] VITALS: TEMP 97.6
[2020-11-20 06:24] VITALS: O2SAT 100
[2020-11-20 06:29] VITALS: BP 104/68
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
--- OUTSIDE RECORDS SUMMARY | 2020-11-20 15:04 | XMS REPORT | Continuity of Care Document ---
:1960 Author Organization [facility] t Address [address] [place] [address] Care Team Providers Name Role Phone Maia [...] Date Stop Date Source Natural brother Hypertension [facility] Natural brother Stroke [facility] Natural father Alcohol abuse [facility] Natural father Heart disease [facility] Natural father Hypertension [facility] Natural mother Early [facility] Natural sister Hypertension [facility] Social History Social Habit Start Date Stop Date Quantity Comments Source Sex Assigned At [facility] Tobacco use and 2015-08-13 2015-08-13 Never used [facility] - exposure 00:00:00 00:00:00 [facility] Alcohol intake 2015-08-13 2015-08-13 Current [facility] es - 00:00:00 00:00:00 non-drinker of [facility] nter alcohol (finding) Smoking Status Start Date Stop Date Source Never smoker [facility] Medications Ordered Filled Start Stop Current [...] by mouth [facility] - tablet 15:36: daily. [facility] Center cyclobenzap Yes 10mg Take [address] [facility] [address] [facility] 3-29 by mouth 2 [facility] - (FLEXERIL) 15:36: (two) Medica l 10 MG 54 times Center tablet daily as needed for Muscle spasms. simvastatin Yes 20mg QD Take [address] (ZOCOR) 20 3-29 by mouth [facility] - MG tablet 15:36: nightly. [facility] Center insulin Yes To use [...] Dispense Medical Insulin Pen 00 as Center [place] 4 written, mm x 32 G do not substitute . Brand medically necessary. To use 6 a day. PROAIR HFA Yes 8.5g Inhale 8.[address] 90 3-07 g by mouth [facility] - mcg/actuati 00:00: via Medica l on inhaler [address] needed Inhale two puffs by mouth every 4-6 hours as needed. albuterol albuterol No albuterol [facility] sulfate HFA sulfate HFA sulfate Family 90 90 HFA 90 [facility] mcg/actuati mcg/actuati mcg/actuat e on aerosol on aerosol ion inhaler inhaler aerosol inhaler alprazolam alprazolam No 1 alprazolam [facility] 0.25 mg 0.25 mg 0.25 mg Family tablet Take tablet Take tablet [facility] 1 tablet as 1 tablet as Take 1 e needed by needed by tablet as oral route oral route needed by for 30 for 30 oral route days. days. for 30 days. amiodarone amiodarone No amiodarone [facility] 200 mg 200 mg 200 mg [...] BD Insulin BD Insulin No BD Insulin [facility] Syringe Syringe Syringe [facility] Ultra-Fine Ultra-Fine Ultra-Fine [facility] 0.3 mL 31 0.3 mL 31 0.3 mL 31 e gauge x gauge x gauge x /16" 16" 16" bumetanide bumetanide No .5 Q1D bumetanide [facility] 2 mg tablet 2 mg tablet [...] folic acid No 1 Q1D folic acid [facility] 1 mg tablet 1 mg tablet 1 mg F amily Take 1 Take 1 tablet [facility] tablet tablet Take 1 e every day every day tablet by oral by oral every day route. route. by oral route. lisinopril lisinopril No 1 Q1D lisinopril [facility] 5 mg tablet 5 mg tablet 5 mg F amily Take 1 Take 1 tablet [facility] tablet tablet Take 1 e every day every day tablet by oral by oral every day route for route for by oral 90 days. 90 days. route for 90 days. magnesium magnesium No 1 Q1D magnesium [facility] 400 mg (as 400 mg (as 400 mg (as [facility] magnesium magnesium magnesium [facility] oxide) oxide) oxide) e tablet Take tablet Take tablet 1 tablet 1 tablet Take 1 every day every day tablet by oral by oral every day route. route. by oral route. multivitami multivitami No multivitam [facility] n 1 po qd n 1 po qd in 1 po qd Family Practic e Novolin N Novolin N No Novolin N [facility] Flexpen Flexpen Flexpen Family Practic e omeprazole omeprazole No 1capsul Q1D omeprazole [facility] 40 mg 40 mg e(s) 40 [...] days. paroxetine paroxetine No 1 Q1D paroxetine [facility] 20 mg 20 mg 20 mg Family tablet Take tablet Take tablet Practic 1 tablet 1 tablet Take 1 e every day every day tablet by oral by oral every day route for route for by oral 30 days. 30 days. route for 30 days. sertraline sertraline No sertraline [facility] 50 mg 50 mg 50 mg Family tablet tablet tablet Practic e simvastatin simvastatin No 1 Q1D simvastati [facility] 20 mg 20 mg n 20 [...] Source Name Name influenza, influenza, 2019-03-09 Completed [facility] unspecified unspecified 00:00:00 Practice formulation formulation Vital Signs Vital Name Observation Time Observation Value Comments Source BP Diastolic 2019-08-07 00:00:00 76 mm[Hg] [facility] Practice Height 2019-08-07 00:00:00 68.5 [in_i] [facility] BP Systolic 2019-08-07 00:00:00 120 mm[Hg] [facility] BP Diastolic 2019-07-17 00:00:00 70 mm[Hg] [facility] Height 2019-07-17 00:00:00 68.5 [in_i] [facility] BMI (Body Mass 2019-07-17 00:00:00 34.5 kg/m2 [facility] Index) Practice BP Systolic 2019-07-17 00:00:00 126 mm[Hg] [facility] Body Weight 2019-07-17 00:00:00 230 [lb_av] [facility] Procedures This patient has no known procedures. Plan of Care Planned Activity Planned Date Details Comments Source Diagnostic Test Pending 2019-08-07 glucose, Vill age Family 00:00:00 fingerstick, Practice blood [code = glucose, fingerstick, blood] Diagnostic Test Pending 2019-08-07 BMP, serum or Raya nuno Family 00:00:00 plasma [code = Practice BMP, serum or plasma] Instructions [facility] Encounters Start End Encounter Admission Attending Care Care Encounter Source Date/Time Date/Time Type Type Clinicians Facility Department ID 2019-09-07 Outpatient [id number] [facility] 10:28:52 2019-08-07 2019[facility]07 [facility] [place] - [id number] [facility] 00:00:00 00:00:00 Naveed Ashley mullins MD: [id number] Medical - [facility]_HOJessica_Cain Beltran r [facility] [address], ([facility] [place] [address] , Ph. 2019-07-17 2019-07-17 [facility] [place] - [id number] [facility] 00:00:00 00:00:00 Naveed Ashley mullins MD: [id number] Medical - [facility]_HOJessica_Cain Beltran r [facility] [address], ([place]) [place] [address] , Ph. 2019-04-26 2019-04-26 Outpatient [id number] 07:22:00 07:22:00 [facility] Results Test Description Test Time Test Comments Results Result Sourc e Comments SCR MAMM BILATERAL 2019-04-27 - SCR MAMM BILATERAL [facility] CAD DIGITAL 07:52:28 ELENA CAD DIGITALBILATERAL DIGITAL SCREENING MAMMOGRAM 3D/2D WITH CAD: 04/25/2019CLINICAL: Asymptomatic. Digital breast tomosynthesis was performed in addition to routine CC and MLO views. Current mammographic images were evaluated by either a [facility] M-Vu or a [employer] ImageChecker CAD (computer aided detection system). Comparison is made to exams dated 06/17/2016 mammogram, 05/28/2014 mammogram, and 08/07/2008 mammogram - [facility]. The tissue of both breasts [...] one year. Arnold Doyle M.D. et/penrad:04/27/2019 07:52:28 [employer] Polisher: Asia BENEDICT RT(M), [facility] sent: BIRADS 1-2 Normal Mammogram BI-RADS: 2 Benign
== END 2020-11-20 06:17 | disposition home or self-care (01) ==
LOC: ER 23:07
DX: S00.83XA Contusion of other part of head, initial encounter (principal); F10.129 Alcohol abuse with intoxication, unspecified; W01.0XXA Fall on same level from slipping, tripping and stumbling without subsequent striking against object, initial encounter; Y93.01 Activity, walking, marching and hiking; Z79.4 Long term (current) use of insulin; Z79.82 Long term (current) use of aspirin; Z88.8 Allergy status to other drugs, medicaments and biological substances; Z91.013 Allergy to seafood; E11.9 Type 2 diabetes mellitus without complications; I10 Essential (primary) hypertension
CPT/HCPCS: 36415; 70450; 72125; 80048; 80076; 83690; 85025; 85610; 85730; 86850; 86900; 86901; 96360; 96361; 99284

== ENCOUNTER 2020-12-12 19:52 | Emergency (ER) | payer OTHER ==
--- OUTSIDE RECORDS SUMMARY | 2020-12-12 20:00 | XMS REPORT | Continuity of Care Document ---
:1960 Author Organization [facility] t Address [address] [place] [address] Care Team Providers Name Role Phone Maia [...] Date Stop Date Source Natural brother Hypertension [facility] Natural brother Stroke [facility] Natural father Alcohol abuse [facility] Natural father Heart disease [facility] Natural father Hypertension [facility] Natural mother Early [facility] Natural sister Hypertension [facility] Social History Social Habit Start Date Stop Date Quantity Comments Source Sex Assigned At [facility] Tobacco use and 2015-08-13 2015-08-13 Never used [facility] - exposure 00:00:00 00:00:00 [facility] Alcohol intake 2015-08-13 2015-08-13 Current [facility] es - 00:00:00 00:00:00 non-drinker of [facility] nter alcohol (finding) Smoking Status Start Date Stop Date Source Never smoker [facility] Medications Ordered Filled Start Stop Current [...] by mouth [facility] tablet 15:36: daily. [facility] cyclobenzap Yes 10mg Take [address] [facility] 3-29 by mouth 2 [facility] - (FLEXERIL) 15:36: (two) Medica l 10 MG 54 times Center tablet daily as needed for Muscle spasms. simvastatin Yes 20mg QD Take [address] [facility] (ZOCOR) 20 3-29 by mouth [facility] - MG tablet 15:36: nightly. [facility] insulin Yes To [...] Dispense Medical Insulin Pen 00 as Center Zanoni 4 written, mm x 32 G do not substitute . Brand medically necessary. To use 6 a day. PROAIR HFA Yes 8.5g Inhale 8.[address] 90 3-07 g by mouth [facility] - mcg/actuati 00:00: via Medica l on inhaler [address] needed Inhale two puffs by mouth every 4-6 hours as needed. albuterol albuterol No albuterol [facility] sulfate HFA sulfate HFA sulfate Family 90 90 HFA 90 [facility] mcg/actuati mcg/actuati mcg/actuat e on aerosol on aerosol ion inhaler inhaler aerosol inhaler alprazolam alprazolam No 1 alprazolam [facility] 0.25 mg 0.25 mg 0.25 mg Family tablet Take tablet Take tablet Practic 1 tablet as 1 tablet as Take 1 e needed by needed by tablet as oral route oral route needed by for 30 for 30 oral route days. days. for 30 days. amiodarone amiodarone No amiodarone [facility] 200 mg 200 mg 200 mg [...] BD Insulin BD Insulin No BD Insulin [facility] Syringe Syringe Syringe [facility] Ultra-Fine Ultra-Fine Ultra-Fine Practic 0.3 mL 31 0.3 mL 31 0.3 mL 31 e gauge x gauge x gauge x /16" 16" 16" bumetanide bumetanide No .5 Q1D bumetanide [facility] 2 mg tablet 2 mg tablet [...] folic acid No 1 Q1D folic acid [facility] 1 mg tablet 1 mg tablet 1 mg F amily Take 1 Take 1 tablet Practic tablet tablet Take 1 e every day every day tablet by oral by oral every day route. route. by oral route. lisinopril lisinopril No 1 Q1D lisinopril [facility] 5 mg tablet 5 mg tablet 5 mg F amily Take 1 Take 1 tablet Practic tablet tablet Take 1 e every day every day tablet by oral by oral every day route for route for by oral 90 days. 90 days. route for 90 days. magnesium magnesium No 1 Q1D magnesium [facility] 400 mg (as 400 mg (as 400 mg (as [facility] magnesium magnesium magnesium Pract[facility] oxide) oxide) oxide) e tablet Take tablet Take tablet 1 tablet 1 tablet Take 1 every day every day tablet by oral by oral every day route. route. by oral route. multivitami multivitami No multivitam [facility] n 1 po qd n 1 po qd in 1 po qd Family Practic e Novolin N Novolin N No Novolin N Village Flexpen Flexpen Flexpen Family Practic e omeprazole omeprazole No 1capsul Q1D omeprazole [facility] 40 mg 40 mg e(s) 40 [...] days. paroxetine paroxetine No 1 Q1D paroxetine [facility] 20 mg 20 mg 20 mg Family tablet Take tablet Take tablet Practic 1 tablet 1 tablet Take 1 e every day every day tablet by oral by oral every day route for route for by oral 30 days. 30 days. route for 30 days. sertraline sertraline No sertraline [facility] 50 mg 50 mg 50 mg Family tablet tablet tablet Practic e simvastatin simvastatin No 1 Q1D simvastati [facility] 20 mg 20 mg n 20 [...] Name influenza, influenza, 2019-03-09 Completed [facility] unspecified unspecified 00:00:00 Practice formulation formulation Vital Signs Vital Name Observation Time Observation Value Comments Source BP Diastolic 2019-08-07 00:00:00 76 mm[Hg] [facility] Practice Height 2019-08-07 00:00:00 68.5 [in_i] [facility] BP Systolic 2019-08-07 00:00:00 120 mm[Hg] [facility] BP Diastolic 2019-07-17 00:00:00 70 mm[Hg] [facility] Height 2019-07-17 00:00:00 68.5 [in_i] [facility] BMI (Body Mass 2019-07-17 00:00:00 34.5 kg/m2 [facility]) Practice BP Systolic 2019-07-17 00:00:00 126 mm[Hg] [facility] Body Weight 2019-07-17 00:00:00 230 [lb_av] [facility] Procedures This patient has no known procedures. Plan of Care Planned Activity Planned Date Details Comments Source Diagnostic Test Pending 2019-08-07 glucose, Vill age Family 00:00:00 fingerstick, Practice blood [code = glucose, fingerstick, blood] Diagnostic Test Pending 2019-08-07 BMP, serum or Raya nuno Family 00:00:00 plasma [code = Practice BMP, serum or plasma] Instructions [facility] Encounters Start End Encounter Admission Attending Care Care Encounter Source Date/Time Date/Time Type Type Clinicians Facility Department ID 2019-09-07 Outpatient [id number] 10:28:52 2019-08-07 2019[facility]08[facility] [facility] [place] - [id number] [facility] 00:00:00 00:00:00 Naveed Ashley mullins MD: [id number] Medical - [facility]_HOJessica_Cain Beltran r [facility] [address], ([facility] [place] [address] , Ph. 2019-07-17 2019-07-17 [facility] [place] - [id number] [facility] 00:00:00 00:00:00 Naveed Ashley mullins MD: [id number] Medical - [facility]_HOJessica_Cain Beltr[facility] r [facility] [address], ([place]) [place] [address] , Ph. 2019-04-26 2019-04-26 Outpatient [id number] 07:22:00 07:22:00 [facility] l Results Test Description Test Time Test Comments Results Result Sourc e Comments SCR MAMM BILATERAL 2019-04-27 - SCR MAMM BILATERAL ELENA CAD DIGITAL 07:52:28 ELENA CAD DIGITALBILATERAL DIGITAL SCREENING MAMMOGRAM 3D/2D WITH CAD: 04/25/2019CLINICAL: Asymptomatic. Digital breast tomosynthesis was performed in addition to routine CC and MLO views. Current mammographic images were evaluated by either a Flowline M-Vu or a Chogger ImageChecker CAD (computer aided detection system). Comparison is made to exams dated 06/17/2016 mammogram, 05/28/2014 mammogram, and 08/07/2008 mammogram - [facility]. The tissue of both breasts [...] one year. Arnold Doyle M.D. et/penrad:04/27/2019 07:52:28 Mononitrotoluene Operator: Asia BENEDICT RT(M), [facility] sent: BIRADS 1-2 Normal Mammogram BI-RADS: 2 Benign
[2020-12-12] MEDS ORDERED: ONDANSETRON 4 MG (ODT) TAB ONE (20:41)
[2020-12-12] MEDS ORDERED: HYDROCODONE/APAP 7.5/325 MG TAB ONE (20:41)
--- NOTE | 2020-12-12 21:34 | RAD REPORT ---
EXAM DESCRIPTION: RAD - Femur Right - 12/12/2020 8:41 pm CLINICAL HISTORY: PAIN COMPARISON: No comparisons FINDINGS: No right femur fracture identified. Degenerative changes are present at the right hip and knee. IMPRESSION: No right femur fracture.
--- NOTE | 2020-12-12 21:35 | RAD REPORT ---
EXAM DESCRIPTION: RAD - Tib Fib Right - 12/12/2020 8:41 pm CLINICAL HISTORY: PAIN COMPARISON: No comparisons FINDINGS: No fracture of the tibia or fibula is identified. Vascular calcifications. Degenerative ch anges are present at the knee and ankle. Calcaneal spurring. IMPRESSION: No fracture of the tibia or fibula identified.
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
[2020-12-12] MEDS ORDERED: IBUPROFEN 400 MG TAB ONE (22:26)
[2020-12-13 02:59] VITALS: TEMP 98.4
[2020-12-13 03:01] VITALS: BP 146/71; O2SAT 98
== END 2020-12-12 22:16 | disposition home or self-care (01) ==
LOC: ER 19:52
DX: S80.01XA Contusion of right knee, initial encounter (principal); W01.0XXA Fall on same level from slipping, tripping and stumbling without subsequent striking against object, initial encounter; Z88.2 Allergy status to sulfonamides; Z91.013 Allergy to seafood; I10 Essential (primary) hypertension
CPT/HCPCS: 99283

== ENCOUNTER 2021-01-30 14:15 | Emergency (ER) | payer OTHER ==
[2021-01-30] MEDS ORDERED: ONDANSETRON 4 MG (ODT) TAB ONE (16:30)
[2021-01-30] MEDS ORDERED: MORPHINE 4 MG/ML SYR ONE (16:30)
--- NOTE | 2021-01-30 16:49 | RAD REPORT ---
EXAM DESCRIPTION: RAD - Foot Right 3 View - 01/30/2021 4:31 pm CLINICAL HISTORY: knee pain COMPARISON: No comparisons FINDINGS: No right foot fracture is identified. Joint prosthesis at the first MTP joint. Calcaneal s purring is present. Mild midfoot degenerative changes. IMPRESSION: No acute osseous abnormality involving the right foot.
--- NOTE | 2021-01-30 16:50 | RAD REPORT ---
EXAM DESCRIPTION: RAD - Knee Right 3 View - 01/30/2021 4:32 pm CLINICAL HISTORY: fall COMPARISON: Knee Right 3 View dated 05/14/2020; Knee Right 3 View dated 12/20/2016 FINDINGS: No acute fracture. No malalignment. Mild tricompartmental degenerative changes with modera te lateral compartment, mild medial compartment, and mild patellofemoral compartment spurring. Small knee effusion which is likely related to degenerative changes. Deformity of the lateral tibial platea u is chronic. IMPRESSION: No acute osseous abnormality involving the right knee..
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
[2021-01-30] MEDS ORDERED: TRAMADOL 37.5mg/APAP 325mg PER TAB ONE (17:52)
[2021-01-30 18:27] VITALS: TEMP 97.4
[2021-01-30 18:31] VITALS: BP 120/58; O2SAT 96
== END 2021-01-30 18:21 | disposition home or self-care (01) ==
LOC: ER 14:15
DX: M23.8X1 Other internal derangements of right knee (principal); I10 Essential (primary) hypertension; E11.8 Type 2 diabetes mellitus with unspecified complications; W19.XXXA Unspecified fall, initial encounter; Z79.82 Long term (current) use of aspirin; Z79.4 Long term (current) use of insulin; Z88.2 Allergy status to sulfonamides; Z91.013 Allergy to seafood
CPT/HCPCS: 96372; 99284

== ENCOUNTER 2021-02-01 22:33 | Emergency (ER) | payer OTHER ==
[2021-02-01] MEDS ORDERED: ONDANSETRON 4 MG/2 ML VIAL ONE (23:21)
[2021-02-01] MEDS ORDERED: MORPHINE 4 MG/ML SYR ONE (23:21)
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
[2021-02-02] MEDS ORDERED: KETOROLAC 30 MG/ML INJ ONE (00:23)
[2021-02-02 00:45] VITALS: BP 111/58; TEMP 98.8; O2SAT 99
--- NOTE | 2021-02-03 11:14 | RAD REPORT ---
EXAM DESCRIPTION: CT - Head C Spine Mpr Wo Con - 02/02/2021 7:17 am COMPARISON: CT head and cervical spine November 20, 2020 CLINICAL HISTORY: [facility] MAIN PAIN TECHNIQUE: Axial images were obtained from skull base to vertex without intravenous contrast. Imag es viewed on bone and brain windows. Multiplanar reformats were performed. Automated exposure contr ol was utilized on this examination as a dose lowering technique. FINDINGS: Brain parenchyma, ventricles, dura, meninges, and extra-axial spaces: Mild generalized cer ebral and cerebellar volume loss. No abnormal attenuation of brain parenchyma is present. No acute intracranial hemorrhage or abnormal extra-axial fluid collections are present. Vascular structures: No hyperdense arteries or veins. Calvarium, mastoid air cells, paranasal sinuses and orbits: The calvarium is normal. Small superior s calp contusions are noted. The mastoid air cells are clear. Visualized paranasal sinuses are unremark able. Orbital structures are unremarkable. EXAM DESCRIPTION: CT Cervical Spine COMPARISON: None. CLINICAL HISTORY: [facility] MAIN PAIN TECHNIQUE: Axial CT images were obtained through the entire cervical spine without contrast. Sagit criss and coronal reconstructions are provided. Automated exposure control was utilized on this examina tion as a dose lowering technique. FINDINGS: Vertebrae: Vertebral statures and alignment are normal. No acute fracture, dislocation o r destructive osseous process is present. Spinal canal, foramina, and facet joints: Greatest spinal canal stenosis is mild at C4-C5 due to disc osteophyte complexes. Left C4 hemilaminec cristine. Greatest foraminal stenoses are severe at bilateral C4 and C6. Paraspinous soft-tissues: Normal. Thyroid: A subcentimeter right thyroid calcification is noted. No follow-up imaging is recommended. Other Findings: None. HEAD IMPRESSION: 1. No acute intracranial abnormality. 2. Mild senescent changes. C-SPINE IMPRESSION: No acute findings of the cervical spine. Electronically signed by: Fei Swain MD 02/01/2021 11:44 PM CDT Due to temporary technical issues with the PACS/Fluency reporting system, reports are being signed by the in house radiologists without review as a courtesy to insure prompt reporting. The interpreting radiologist is fully responsible for the content of the report.
== END 2021-02-02 00:19 | disposition home or self-care (01) ==
LOC: ER 22:33
DX: R51.9 Headache, unspecified (principal); W01.190A Fall on same level from slipping, tripping and stumbling with subsequent striking against furniture, initial encounter; Y92.009 Unspecified place in unspecified non-institutional (private) residence as the place of occurrence of the external cause; I10 Essential (primary) hypertension; E11.9 Type 2 diabetes mellitus without complications; I50.9 Heart failure, unspecified; Z88.2 Allergy status to sulfonamides; Z91.013 Allergy to seafood
CPT/HCPCS: 70450; 72125; 96375; 96374; 99284; J2405

== ENCOUNTER 2021-03-01 16:27 | Inpatient (IN) | payer OTHER ==
[2021-03-01 17:30] LABS: Absolute Lymphocytes (CBC) 3.4 K/uL (0.7-4.9); Basophils % 0.7 % (0-1.3); Hematocrit 30.9 % (36.0-45.0); Lymphocytes % 16.4 % (15.3-44.8); MPV 7.5 fL (7.6-11.3); RBC Red Blood Cell Count 2.99 M/uL (3.86-4.86)
[2021-03-01 17:35] LABS: Protime INR 1.07
[2021-03-01 18:15] LABS: Anisocytosis 2+; Blood Morphology Comment NOTED (NOT SEEN); Platelet Estimate ADEQ; Poikilocytosis 1+; Polychromasia SLIGHT
[2021-03-01 18:26] LABS: Albumin 3.3 g/dL (3.4-5.0); Bilirubin Direct 0.1 mg/dL (0-0.2); Bilirubin Total 0.4 mg/dL (0.2-1.0); Potassium 3.6 mmol/L (3.5-5.1); Protein, Total 7.3 g/dL (6.4-8.2); Troponin (Emerg Dept Use Only) 0.18 ng/mL (0.0-0.045)
[2021-03-01 18:34] LABS: Magnesium 1.3 mg/dL (1.8-2.4)
[2021-03-01] MEDS ORDERED: FENTANYL CITR 100 MCG/2 ML ONE (19:13)
[2021-03-01] MEDS ORDERED: FAMOTIDINE 20 MG/2 ML VIAL IV ONE (19:13)
[2021-03-01] MEDS ORDERED: ONDANSETRON 4 MG/2 ML VIAL ONE (19:13)
[2021-03-01] MEDS ORDERED: NA CHLORIDE 0.9% 1,000 ML ONE (19:13)
[2021-03-01] MEDS ORDERED: Magnesium Sulfate 2gm IVPB 2 G/50 ML BAG IV ONE (19:14)
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
--- NOTE | 2021-03-01 19:51 | RAD REPORT ---
EXAM DESCRIPTION: CT - Stone Protocol - 03/01/2021 7:20 pm CLINICAL HISTORY: ABDOMINAL DISTENTION COMPARISON: Abdomen Pelvis Wo Contrast dated 08/08/2018 TECHNIQUE: Axial [address] imaging of the abdomen and pelvis was performed without IV contrast. No IV contrast was given because of allergy, abnormal renal function, patient refusal or physician re quest. No oral contrast administered. All CT scans are performed using dose optimization technique as appropriate and may include automated exposure control or mA/KV adjustment according to patient size. FINDINGS: Airspace opacification is present in the medial left lung base not present on prior imagin g. There is bronchiectasis in this region that was present on prior imaging. No pneumothorax or pleur al effusion. Small hiatal hernia is present. No liver abnormality seen. Gallbladder is absent. No pancreatic abnormality seen peer biliary tree is normal size. Spleen is surgically absent. No hydronephrosis or suspicious renal mass. Left kidney is smaller than the right. No perinephric str anding. No significant adrenal finding. Isodense renal masses and pyelonephritis cannot be excluded i n the absence of IV contrast. Well filled urinary bladder shows no wall thickening or mass. No urinar y bladder calculi. Calcified uterine fibroid is seen. No primary ovarian or uterine process seen. No dilated bowel loops or bowel wall thickening. No appendicitis or other acute GI process identifiab le. No free air, free fluid or inflammatory stranding. No hernia, mass or bulky lymphadenopathy. No suspicious bony findings. IMPRESSION: Patchy airspace opacification medial left lung base suspicious for early pneumonia. Chasity elation is needed with any clinical or laboratory findings. Abdomen and pelvis show no acute findings. Above detailed findings are stable from 2019. Full assessment is limited is the absence of IV contrast.
--- NOTE | 2021-03-01 19:55 | RAD REPORT ---
EXAM DESCRIPTION: RAD - Chest Single View - 03/01/2021 6:40 pm CLINICAL HISTORY: SOB COMPARISON: September 06 TECHNIQUE: AP portable chest image was obtained 03/01/2021 6:40 pm . FINDINGS: Technical artifacts overlie the lower chest and there is additional respiratory motion art ifact. Left subclavian pacemaker is in place. Minimal medial left base opacification is present. No significant failure or volume overload. Heart a nd vasculature are normal. No measurable pleural effusion and no pneumothorax. No acute bony abnormal ity seen. No acute aortic findings suspected. IMPRESSION: Minimal medial left base opacification. Early pneumonia cannot be excluded.
[2021-03-01] MEDS ORDERED: AZITHROMYCIN 250 MG TAB ONE (20:12)
[2021-03-01] MEDS ORDERED: CEFTRIAXONE 1000 MG/VIAL ONE (20:12)
[2021-03-01] MEDS ORDERED: ENOXAPARIN 100 MG/ML SYR SQ ONE (20:13)
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
[2021-03-01] MEDS ORDERED: HYDROCODONE/APAP 5/325 MG TAB ONE (21:01)
[2021-03-01] MEDS ORDERED: ONDANSETRON 4 MG/2 ML VIAL IV PRN (21:02)
--- NOTE | 2021-03-01 21:49 | RAD REPORT ---
EXAM DESCRIPTION: US - Extrem Venous W Compress Delta - 03/01/2021 8:30 pm CLINICAL HISTORY: PAIN COMPARISON: None. TECHNIQUE: Real-time sonographic evaluation of the bilateral lower extremity common femoral, superfi cial femoral, popliteal and posterior tibial veins was performed. FINDINGS: Normal compressibility, flow augmentation, phasic flow and spontaneous flow are identified in the left and right lower extremity common femoral, superficial femoral, popliteal and left rod cup filler ior tibial veins. No intraluminal filling defects seen. Right posterior tibial vein were difficult to compress. DVT is doubtful but not excluded. IMPRESSION: No DVT in the left lower extremity. Right leg also appears to be clear of deep venous thrombosis though posterior tibial vein was more di fficult to evaluate.
[2021-03-01] MEDS: NA CHLORIDE 0.9% 1,000 ML IV SCH (21:57)
[2021-03-01] MEDS: INSULIN -REGULAR HUMAN 50 UNIT/0.5 ML ML SQ SCH (21:57)
[2021-03-01 22:18] LABS: Urine Appearance CLEAR (Clear); Urine Bilirubin NEGATIVE (Negative); Urine Blood NEGATIVE (Negative); Urine Color YELLOW (Yellow); Urine Glucose NEGATIVE (Negative); Urine Protein NEGATIVE (Negative); Urine Specific Gravity <=1.005 (1.005-1.030); Urine Urobilinogen 0.2 mg/dL (0.2-1.0)
[2021-03-01 22:31] LABS: Urine Microscopic Reflex ORDER UMIC
[2021-03-01 22:36] LABS: Urine Bacteria 20-50 /HPF (<20); Urine Mucus 2+ /HPF (NONE SEEN); Urine Yeast FEW (NONE SEEN)
[2021-03-02] MEDS: NA CHLORIDE 0.9% 1,000 ML IV SCH ×3 (05:05→20:26)
[2021-03-02] MEDS ORDERED: NA CHLORIDE 0.9% 1,000 ML ONE (05:31)
[2021-03-02 06:09] LABS: Absolute Lymphocytes (CBC) 3.1 K/uL (0.7-4.9); Basophils % 0.6 % (0-1.3); Hematocrit 31.6 % (36.0-45.0); Lymphocytes % 17.1 % (15.3-44.8); MPV 7.3 fL (7.6-11.3); RBC Red Blood Cell Count 3.07 M/uL (3.86-4.86)
[2021-03-02 06:14] LABS: Bilirubin Total 0.4 mg/dL (0.2-1.0); Magnesium 1.9 mg/dL (1.8-2.4); Potassium 3.7 mmol/L (3.5-5.1); Thyroid Stimulating Hormone 0.41 uIU/mL (0.360-3.740); Troponin I 0.17 ng/mL (0.0-0.045)
--- NOTE | 2021-03-02 06:21 | P.PN ---
Subjective Date of Service: 03/02/21 Primary Care Provider: Dr. Clements Chief Complaint: Pneumonia, NSTEMI Subjective: Improving, Doing well Physical Examination - Vital Signs Temperature: 97.7 F Blood Pressure: 105/58 Pulse: 65 Respirations: 19 Pulse Ox (%): 100 - Studies Laboratory Data (last 24 hrs) 03/01/21 18:25: Lipase 85 03/01/21 17:10: PT 12.3, INR 1.07 03/01/21 17:10: WBC 20.90 H*, Hgb 10.2 L, Hct 30.9 L, Plt Count 349 03/01/21 17:10: Sodium 135 L, Potassium 3.6, BUN 30 H, Creatinine 1.65 H, Glucose 160 H, Magnesium 1.3 L* D, Total Bilirubin 0.4, AST 36, ALT 25, Alkaline Phosphatase 63 Assessment & Plan Discharge Plan: Home Plan to discharge in: 48 Hours Physician Review Additional Text: COVID: negative CXR: COMPARISON: September 06 TECHNIQUE: AP portable chest image was obtained 03/01/2021 6:40 pm . FINDINGS: Technical artifacts overlie the lower chest and there is additional respiratory motion artifact. Left subclavian pacemaker is in place. Minimal medial left base opacification is present. No significant failure or v olume overload. Heart and vasculature are normal. No measurable pleural effusion and no pneumothorax. No acute bony abnormality seen. No acute aortic findings suspected. IMPRESSION: Minimal medial left base opacification. Early pneumonia cannot be excluded. CT AB: COMPARISON: Abdomen Pelvis Wo Contrast dated 08/08/2018 TECHNIQUE: Axial [address] imaging of the abdomen and pelvis was performed without IV contrast. No IV contrast was given because of allergy, abnormal renal function, patient refusal or physician request. No oral contrast administered. All CT scans are performed using dose optimization technique as appropriate and may include automated exposure control or mA/KV adjustment according to patient size. FINDINGS: Airspace opacification is present in the medial left lung base not present on prior imaging. There is bronchiectasis in this region that was present on prior imaging. No pneumothorax or pleural effusion. Small hiatal hernia is present. No liver abnormality seen. Gallbladder is absent. No pancreatic abnormality seen peer biliary tree is normal size. Spleen is surgically absent. No hydronephrosis or suspicious renal mass. Left kidney is smaller than the right. No perinephric stranding. No significant adrenal finding. Isodense renal masses and pyelonephritis cannot be excluded in the absence of IV contrast. Well filled urinary bladder shows no wall thickening or mass. No urinary bladder calculi. Calcified uterine fibroid is seen. No primary ovarian or uterine process seen. No dilated bowel loops or bowel wall thickening. No appendicitis or other acute GI process identifiable. No free air, free fluid or inflammatory stranding. No hernia, mass or bulky lymphadenopathy. No suspicious bony findings. IMPRESSION: Patchy airspace opacification medial left lung base suspicious for early pneumonia. Correlation is needed with any clinical or laboratory findings. Abdomen and pelvis show no acute findings. Above detailed findings are stable from 2019. Full assessment is limited is the absence of IV contrast. Venous doppler: COMPARISON: None. TECHNIQUE: Real-time sonographic evaluation of the bilateral lower extremity common femoral, superficial femoral, popliteal and posterior tibial veins was performed. FINDINGS: Normal compressibility, flow augmentation, phasic flow and spontaneous flow are identified in the left and right lower extremity common femoral, superficial femoral, popliteal and left posterior tibial veins. No intraluminal filling defects seen. Right posterior tibial vein were difficult to compress. DVT is doubtful but not excluded. IMPRESSION: No DVT in the left lower extremity. Right leg also appears to be clear of deep venous thrombosis though posterior tibial vein was more difficult to evaluate. Physical Exam: General: Alert, In no apparent distress, Oriented x3 HEENT: Neck supple Respiratory: Better air movement bilateral Cardiovascular: Regular rate/rhythm, Normal S1 S2 Capillary refill: <2 Seconds Gastrointestinal: Normal bowel sounds, No tenderness Musculoskeletal: No tenderness Integumentary: No rashes Neurological: Normal speech, Normal strength at 5/5 x4 extr, Normal tone, Normal affect Lymphatics: No axilla or inguinal lymphadenopathy Impression: Leukocytosis secondary to left-sided pneumonia Elevated troponin likely demand ischemia from acute on chronic diastolic congestive heart failure Acute on chronic renal disease stage III Diabetes mellitus type II Hypertension Hyperlipidemia Hypomagnesemia Generalized weakness/repeated falls Chronic right knee pain Depression with anxiety Chronic pain Anemia chronic disease with iron deficiency Plan: Leukocytosis secondary to left-sided pneumonia: Continue with antibiotics Rocephin/Zithromax. Encourage incentive spirometry. Recheck chest x-ray. Blood pressure still slightly on the low side. We will monitor this closely. Recheck orthostatics tomorrow. Anticipate continued improvement. Await recommendations by cardiology. Echo to be obtained. Anticipate likely discharge in the next 48 hours. I will turn the service over to the hospitalist team tomorrow. A core plan of care with him. Elevated troponin likely demand ischemia from acute on chronic diastolic congestive heart failure: Continue IV fluids. Elevated troponin likely related to ischemic demand. Obtain echocardiogram. Decrease Lovenox to prophylaxis. Acute on chronic renal disease stage III: Continue with IV fluids. Case discussed in detail with nephrology. Continue allopurinol Diabetes mellitus type II: A1c 7.0. Continue sliding scale. Accu-Cheks in place. Hold long-acting insulin at this time. Hypertension: Hold home blood pressure medication at this time due to low blood pressure. Check orthostatics again tomorrow. Hyperlipidemia: Continue medicationLipitor Hypomagnesemia: Protocol in place. Generalized weakness/repeated falls: We will get physical therapy to evaluate tomorrow. Will check orthostatics. Depression with anxiety: Continue with Cymbalta. Patient also takes doxepin and Elavil Chronic pain: Patient is seen by Dr. Stanley for right knee pain. Will provide medication for pain. Will need to follow-up with Dr. Stanleyorthopedics as an outpatient. Physical therapy ordered Anemia of chronic disease with iron deficiency: Continue with iron supplementation. DVT PPX: Lovenox Code status: Full Discharge Plan: Home at discharge Time Spent Managing Pts Care (In Minutes): 55
[2021-03-02 07:10] LABS: Platelet Estimate ADEQ
[2021-03-02 07:11] LABS: Blood Morphology Comment NOT SEEN (NOT SEEN)
[2021-03-02 07:15] LABS: White Blood Cell Scan OK (OK)
[2021-03-02] MEDS: INSULIN -REGULAR HUMAN 50 UNIT/0.5 ML ML SQ SCH ×4 (07:30→21:00)
[2021-03-02] MEDS ORDERED: ENOXAPARIN 100 MG/ML SYR SQ ONE (08:06)
[2021-03-02] MEDS ORDERED: ENOXAPARIN 100 MG/ML SYR SQ SCH (09:00)
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
[2021-03-02] MEDS: HYDROCODONE/APAP 5/325 MG TAB PO PRN (11:53)
[2021-03-02] MEDS: AZITHROMYCIN IV 500 MG in NA CHLORIDE 0.9% 250 ML IVPB SCH (20:26)
[2021-03-02] MEDS: DOXEPIN HCL 25 MG CAP PO SCH (20:30)
[2021-03-02] MEDS: AMITRIPTYLINE 50 MG TAB PO SCH (20:30)
[2021-03-02] MEDS: CEFTRIAXONE 1 GM/NS 50 ML 1 GM/50 ML BAG IV SCH (22:33)
[2021-03-03] MEDS: INSULIN -REGULAR HUMAN 50 UNIT/0.5 ML ML SQ SCH ×4 (07:30→20:25)
[2021-03-03] MEDS ORDERED: INFLUENZA VACCINE (for 6+ mo) 0.5 ML DOSE IMVAC ONE (08:00)
[2021-03-03 08:21] LABS: Absolute Lymphocytes (CBC) 3.5 K/uL (0.7-4.9); Hematocrit 26.3 % (36.0-45.0); Lymphocytes % 23.5 % (15.3-44.8); MPV 7.5 fL (7.6-11.3); RBC Red Blood Cell Count 2.56 M/uL (3.86-4.86)
[2021-03-03] MEDS: FOLIC ACID 1 MG TABLET PO SCH (08:55)
[2021-03-03] MEDS: ENOXAPARIN 40 MG/0.4 ML SQ SCH (08:55)
[2021-03-03] MEDS: DOXEPIN HCL 25 MG CAP PO SCH ×2 (08:56→20:14)
[2021-03-03] MEDS: allopurinoL 100 MG TAB PO SCH (08:56)
[2021-03-03] MEDS: FE SULF/FA/VIT B COMP & C TAB PO SCH (08:57)
[2021-03-03] MEDS: DULOXETINE 30 MG CAP PO SCH (08:57)
[2021-03-03] MEDS: ATORVASTATIN 40 MG TAB PO SCH (09:04)
[2021-03-03] MEDS: HYDROCODONE/APAP 5/325 MG TAB PO PRN ×2 (09:09→20:13)
[2021-03-03 09:23] LABS: ALT/SGPT 20 U/L (12-78); AST/SGOT 24 U/L (15-37); Albumin 2.7 g/dL (3.4-5.0); Alkaline Phosphatase 56 U/L (45-117); BUN Blood Urea Nitrogen 18 mg/dL (7-18); Bicarbonate 24 mmol/L (21-32); Bilirubin Total 0.3 mg/dL (0.2-1.0); Folic Acid, (Folate) > 20.0 ng/mL (3.1-17.5); Glucose Level 116 mg/dL (74-106); Magnesium 1.7 mg/dL (1.8-2.4); Phosphorus 2.7 mg/dL (2.5-4.9); Potassium 3.7 mmol/L (3.5-5.1); Protein, Total 6.3 g/dL (6.4-8.2); Sodium Level 140 mmol/L (136-145); Uric Acid 3.4 mg/dL (2.6-6.0)
[2021-03-03] MEDS ORDERED: MAGNESIUM SULFATE 1 gm IVPB 1 GM/100 ML BAG IV ONE (12:23)
[2021-03-03] MEDS: AZITHROMYCIN IV 500 MG in NA CHLORIDE 0.9% 250 ML IVPB SCH (20:00)
[2021-03-03] MEDS: AMITRIPTYLINE 50 MG TAB PO SCH (20:14)
[2021-03-03] MEDS: CEFTRIAXONE 1 GM/NS 50 ML 1 GM/50 ML BAG IV SCH (20:17)
[2021-03-03] MEDS: NA CHLORIDE 0.9% 1,000 ML IV SCH (20:19)
[2021-03-03] MEDS ORDERED: AZITHROMYCIN 500 MG INJ IVPB ONE (20:39)
[2021-03-03] MEDS ORDERED: NA CHLORIDE 0.9% 250 ML ONE (20:43)
--- NOTE | 2021-03-03 20:51 | P.PN ---
Date of Service: 03/03/21 Vital Signs Temp Pulse Resp BP Pulse Ox 97.5 F 64 18 94/43 L 90 L 03/03/21 16:00 03/03/21 16:00 03/03/21 16:00 03/03/21 16:00 03/03/21 00:00 Medications Hydrocodone Bitart/Acetaminophen (Hydrocodone/Apap 5/325 Mg Tab) 1 tab PO Q6H PRN PRN Reason: Pain scale 5-7 (Moderate) Last Admin: 03/03/21 20:13 Dose: 1 tab Documented by: Allopurinol (Allopurinol 100 Mg Tab) 200 mg PO DAILY [facility] Last Admin: 03/03/21 08:56 Dose: 200 mg Documented by: Amitriptyline HCl (Amitriptyline 50 Mg Tab) 50 mg PO BEDTIME [facility] Last Admin: 03/03/21 20:14 Dose: 50 mg Documented by: Atorvastatin Calcium (Atorvastatin 40 Mg Tab) 40 mg PO DAILY [facility] Last Admin: 03/03/21 09:04 Dose: 40 mg Documented by: Doxepin HCl (Doxepin Hcl 25 Mg Cap) 50 mg PO DAILY [facility] Last Admin: 03/03/21 08:56 Dose: 50 mg Documented by: Doxepin HCl (Doxepin Hcl 25 Mg Cap) 75 mg PO BEDTIME [facility] Last Admin: 03/03/21 20:14 Dose: 75 mg Documented by: Duloxetine HCl (Duloxetine 30 Mg Cap) 60 mg PO DAILY [facility] Last Admin: 03/03/21 08:57 Dose: 60 mg Documented by: Enoxaparin Sodium (Enoxaparin 40 Mg/0.4 Ml) 40 mg SQ DAILY [facility] Last Admin: 03/03/21 08:55 Dose: 40 mg Documented by: Folic Acid (Folic Acid 1 Mg Tablet) 1 mg PO DAILY [facility] Last Admin: 03/03/21 08:55 Dose: 1 mg Documented by: Azithromycin 500 mg/ Sodium (Chloride) 250 mls @ 250 mls/hr IVPB Q24H [facility]; Protocol Last Admin: 03/03/21 20:00 Dose: 250 mls Documented by: Ceftriaxone Sodium/Sodium Chloride (Rocephin 1gm/50 Ml Ivpb) 1 gm in 50 mls @ 100 mls/hr IV Q24H [facility]; Protocol Last Admin: 03/03/21 20:17 Dose: 50 mls Documented by: Sodium Chloride (Sodium Chloride 0.45%) 1,000 mls @ 75 mls/hr IV .[id number] [facility] Insulin Human Regular (Insulin -Regular Human 50 Unit/0.5 Ml Ml) 0 unit SQ ACHS [facility]; Protocol Last Admin: 03/03/21 20:25 Dose: Not Given Documented by: Multivitamins/Iron (Fe Sulf/Fa/Vit B Comp & C Tab) 1 tab PO DAILY WITH BREAKFAST [facility] Last Admin: 03/03/21 08:57 Dose: 1 tab Documented by: Ondansetron HCl (Ondansetron 4 Mg/2 Ml Vial) 4 mg IV Q6HP PRN PRN Reason: NAUSEA / VOMITING Sodium Chloride (Flush Normal Saline 10 Ml) 10 ml IV BID [facility] Last Admin: 03/03/21 20:15 Dose: Not Given Documented by: Tramadol HCl (Tramadol Hcl 50 Mg Tab) 50 mg PO TID PRN PRN Reason: Pain scale 2-4 (Mild) Microbiology Results 03/01/21 19:50 Clean Catch Urine [place] Count - Preliminary BETWEEN 10,000 & 100,000 CFU/ML 03/01/21 19:50 Clean Catch Urine - Preliminary MIXED [place]URT[place]. 03/01/21 18:54 Blood - Blood Aerobic Blood Culture - Preliminary No growth in 24 hours. 03/01/21 18:54 Blood - Blood Anaerobic Blood Culture - Preliminary No growth in 24 hours. 03/01/21 18:25 Blood - Blood Aerobic Blood Culture - Preliminary No growth in 24 hours. 03/01/21 18:25 Blood - Blood Anaerobic Blood Culture - Preliminary No growth in 24 hours. Assessment/ Plan: Nephrology Progress Note Feeling better. +Malaise and fatigue No chest pain or dyspnea No acute events overnight Vitals, medications blood work and imaging reviewed in the chart General: Oriented x3, Cooperative, Mild distress HEENT: Atraumatic Neck: Supple Respiratory: Clear to auscultation bilaterally Cardiovascular: No edema, Regular rate/rhythm Gastrointestinal: Non-distended, Tenderness Musculoskeletal: No clubbing, No contractures Integumentary: No rashes, No cyanosis Neurological: Normal speech Laboratory Data (last 24 hrs) 03/01/21 18:25: Lipase 85 03/01/21 17:10: PT 12.3, INR 1.07 03/01/21 17:10: WBC 20.90 H*, Hgb 10.2 L, Hct 30.9 L, Plt Count 349 03/01/21 17:10: Sodium 135 L, Potassium 3.6, BUN 30 H, Creatinine 1.65 H, Glucose 160 H, Magnesium 1.3 L* D, Total Bilirubin 0.4, AST 36, ALT 25, Alkaline Phosphatase 63 Imagings Data: EXAM DESCRIPTION: US - Extrem Venous W Compress Delta - 03/01/2021 8:30 pm CLINICAL HISTORY: PAIN COMPARISON: None. TECHNIQUE: Real-time sonographic evaluation of the bilateral lower extremity common femoral, superficial femoral, popliteal and posterior tibial veins was performed. FINDINGS: Normal compressibility, flow augmentation, phasic flow and spontaneous flow are identified in the left and right lower extremity common femoral, superficial femoral, popliteal and left posterior tibial veins. No intraluminal filling defects seen. Right posterior tibial vein were difficult to compress. DVT is doubtful but not excluded. IMPRESSION: No DVT in the left lower extremity. Right leg also appears to be clear of deep venous thrombosis though posterior tibial vein was more difficult to evaluate. EXAM DESCRIPTION: CT - Stone Protocol - 03/01/2021 7:20 pm CLINICAL HISTORY: ABDOMINAL DISTENTION COMPARISON: Abdomen Pelvis Wo Contrast dated 08/08/2018 TECHNIQUE: Axial [address] imaging of the abdomen and pelvis was performed without IV contrast. No IV contrast was given because of allergy, abnormal renal function, patient refusal or physician request. No oral contrast administered. All CT scans are performed using dose optimization technique as appropriate and may include automated exposure control or mA/KV adjustment according to patient size. FINDINGS: Airspace opacification is present in the medial left lung base not present on prior imaging. There is bronchiectasis in this region that was present on prior imaging. No pneumothorax or pleural effusion. Small hiatal hernia is present. No liver abnormality seen. Gallbladder is absent. No pancreatic abnormality seen peer biliary tree is normal size. Spleen is surgically absent. No hydronephrosis or suspicious renal mass. Left kidney is smaller than the right. No perinephric stranding. No significant adrenal finding. Isodense renal masses and pyelonephritis cannot be excluded in the absence of IV contrast. Well filled urinary bladder shows no wall thickening or mass. No urinary bladder calculi. Calcified uterine fibroid is seen. No primary ovarian or uterine process seen. No dilated bowel loops or bowel wall thickening. No appendicitis or other acute GI process identifiable. No free air, free fluid or inflammatory stranding. No hernia, mass or bulky lymphadenopathy. No suspicious bony findings. IMPRESSION: Patchy airspace opacification medial left lung base suspicious for early pneumonia. Correlation is needed with any clinical or laboratory findings. Abdomen and pelvis show no acute findings. Above detailed findings are stable from 2019. Full assessment is limited is the absence of IV contrast. EXAM DESCRIPTION: RAD - Chest Single View - 03/01/2021 6:40 pm CLINICAL HISTORY: SOB COMPARISON: August 16 TECHNIQUE: AP portable chest image was obtained 03/01/2021 6:40 pm . FINDINGS: Technical artifacts overlie the lower chest and there is additional respiratory motion artifact. Left subclavian pacemaker is in place. Minimal medial left base opacification is present. No significant failure or volume overload. Heart and vasculature are normal. No measurable pleural effusion and no pneumothorax. No acute bony abnormality seen. No acute aortic findings suspected. IMPRESSION: Minimal medial left base opacification. Early pneumonia cannot be excluded. Conclusions/Impression: RAQUEL likely due to hypovolemia CKD III -Continue IVF Hypomagnesemia -Give IV Mag prn DM II with CKD -RISS Mild malnutrition -Encourage nutrition Anemia in chronic illness -Monitor H&H Lobar PNA -Continue Zithromax & Rocephin
[2021-03-03] MEDS: NACHLORIDE 0.45% 1,000 ML IV SCH (22:19)
[2021-03-04] MEDS: HYDROCODONE/APAP 5/325 MG TAB PO PRN ×2 (06:03→14:10)
[2021-03-04 06:09] LABS: Absolute Lymphocytes (CBC) 3.4 K/uL (0.7-4.9); Basophils % 1.4 % (0-1.3); Hematocrit 25.1 % (36.0-45.0); Lymphocytes % 29.2 % (15.3-44.8); MPV 7.2 fL (7.6-11.3); RBC Red Blood Cell Count 2.43 M/uL (3.86-4.86)
[2021-03-04 06:29] LABS: Albumin 2.6 g/dL (3.4-5.0); Bilirubin Total 0.2 mg/dL (0.2-1.0); Magnesium 2.1 mg/dL (1.8-2.4); Potassium 3.8 mmol/L (3.5-5.1); Protein, Total 6.1 g/dL (6.4-8.2)
[2021-03-04] MEDS: INSULIN -REGULAR HUMAN 50 UNIT/0.5 ML ML SQ SCH ×4 (07:30→20:05)
--- NOTE | 2021-03-04 08:26 | ECHO ---
HEIGHT: 5 ft 8 in WEIGHT: 220 lb 0 oz DATE OF STUDY: 03/03/[address]: Saulo Early DO 2-DIMENSIONAL: YES M.MODE: YES DOPPLER: YES COLOR FLOW: YES TDS: PORTABLE: DEFINITY: BUBBLE STUDY: DIAGNOSIS: ELEVATED TROPONIN, LIKELY ISCHEMIC DEMAND CARDIAC HISTORY: CATHERIZATION: NO SURGERY: NO PROSTHETIC VALVE: NO PACEMAKER: YES MEASUREMENTS (cm) DIASTOLIC (NORMALS) SYSTOLIC (NORMALS) IVSd 0.8 (0.6-1.2) LA Diam 2.8 (1.9-4.0) LVEF 55-60% LVIDd 4.5 (3.5-5.7) LVIDs 2.6 (2.0-3.5) %FS 42% LVPWd 1.1 (0.6-1.2) Ao Diam 2.5 (2.0-3.7) 2 DIMENSIONAL ASSESSMENT: RIGHT ATRIUM: NORMAL LEFT ATRIUM: NORMAL RIGHT VENTRICLE: NORMAL LEFT VENTRICLE: NORMAL TRICUSPID VALVE: NORMAL MITRAL VALVE: MILD MITRAL REGURGITATION PULMONIC VALVE: MODERATE TRICUSPID REGURGITATION AORTIC VALVE: NORMAL PERICARDIAL EFFUSION: NONE AORTIC ROOT: NORMAL LEFT VENTRICULAR WALL MOTION: NORMAL DOPPLER/COLOR FLOW: SEE BELOW COMMENTS: NORMAL LEFT VENTRICULAR EJECTION FRACTION 55-60%. NORMAL WALL MOTION. MODERATE TRICUSPID REGURGITATION. MILD MITRAL REGURGITATION. TECHNOLOGIST: HERRERA LINDA
[2021-03-04] MEDS: FOLIC ACID 1 MG TABLET PO SCH (09:16)
[2021-03-04] MEDS: ENOXAPARIN 40 MG/0.4 ML SQ SCH (09:16)
[2021-03-04] MEDS: allopurinoL 100 MG TAB PO SCH (09:17)
[2021-03-04] MEDS: DULOXETINE 30 MG CAP PO SCH (09:17)
[2021-03-04] MEDS: ATORVASTATIN 40 MG TAB PO SCH (09:17)
[2021-03-04] MEDS: FE SULF/FA/VIT B COMP & C TAB PO SCH (09:17)
[2021-03-04] MEDS: DOXEPIN HCL 25 MG CAP PO SCH ×2 (09:18→20:14)
[2021-03-04] MEDS: TRAMADOL HCL 50 MG TAB PO PRN (09:25)
[2021-03-04] MEDS: NACHLORIDE 0.45% 1,000 ML IV SCH ×2 (10:20→14:05)
[2021-03-04] MEDS: AMITRIPTYLINE 50 MG TAB PO SCH (20:14)
[2021-03-04] MEDS: AZITHROMYCIN IV 500 MG in NA CHLORIDE 0.9% 250 ML IVPB SCH (20:14)
--- NOTE | 2021-03-04 20:33 | P.PN ---
Date of Service: 03/04/21 Vital Signs Temp Pulse Resp BP Pulse Ox 96.6 F L 60 16 121/56 L 99 03/04/21 16:00 03/04/21 16:00 03/04/21 16:00 03/04/21 16:00 03/04/21 16:00 Medications Hydrocodone Bitart/Acetaminophen (Hydrocodone/Apap 5/325 Mg Tab) 1 tab PO Q6H PRN PRN Reason: Pain scale 5-7 (Moderate) Last Admin: 03/04/21 14:10 Dose: 1 tab Documented by: Allopurinol (Allopurinol 100 Mg Tab) 200 mg PO DAILY [facility] Last Admin: 03/04/21 09:17 Dose: 200 mg Documented by: Amitriptyline HCl (Amitriptyline 50 Mg Tab) 50 mg PO BEDTIME [facility] Last Admin: 03/04/21 20:14 Dose: 50 mg Documented by: Atorvastatin Calcium (Atorvastatin 40 Mg Tab) 40 mg PO DAILY [facility] Last Admin: 03/04/21 09:17 Dose: 40 mg Documented by: Doxepin HCl (Doxepin Hcl 25 Mg Cap) 50 mg PO DAILY [facility] Last Admin: 03/04/21 09:18 Dose: 50 mg Documented by: Doxepin HCl (Doxepin Hcl 25 Mg Cap) 75 mg PO BEDTIME [facility] Last Admin: 03/04/21 20:14 Dose: 75 mg Documented by: Duloxetine HCl (Duloxetine 30 Mg Cap) 60 mg PO DAILY [facility] Last Admin: 03/04/21 09:17 Dose: 60 mg Documented by: Enoxaparin Sodium (Enoxaparin 40 Mg/0.4 Ml) 40 mg SQ DAILY [facility] Last Admin: 03/04/21 09:16 Dose: 40 mg Documented by: Folic Acid (Folic Acid 1 Mg Tablet) 1 mg PO DAILY [facility] Last Admin: 03/04/21 09:16 Dose: 1 mg Documented by: Azithromycin 500 mg/ Sodium (Chloride) 250 mls @ 250 mls/hr IVPB Q24H [facility]; Protocol Last Admin: 03/04/21 20:14 Dose: 250 mls Documented by: Ceftriaxone Sodium/Sodium Chloride (Rocephin 1gm/50 Ml Ivpb) 1 gm in 50 mls @ 100 mls/hr IV Q24H [facility]; Protocol Last Admin: 03/03/21 20:17 Dose: 50 mls Documented by: Insulin Human Regular (Insulin -Regular Human 50 Unit/0.5 Ml Ml) 0 unit SQ ACHS [facility]; Protocol Last Admin: 03/04/21 20:05 Dose: Not Given Documented by: Multivitamins/Iron (Fe Sulf/Fa/Vit B Comp & C Tab) 1 tab PO DAILY WITH BREAKFAST [facility] Last Admin: 03/04/21 09:17 Dose: 1 tab Documented by: Ondansetron HCl (Ondansetron 4 Mg/2 Ml Vial) 4 mg IV Q6HP PRN PRN Reason: NAUSEA / VOMITING Sodium Chloride (Flush Normal Saline 10 Ml) 10 ml IV BID [facility] Last Admin: 03/04/21 20:18 Dose: 10 ml Documented by: Tramadol HCl (Tramadol Hcl 50 Mg Tab) 50 mg PO TID PRN PRN Reason: Pain scale 2-4 (Mild) Last Admin: 03/04/21 09:25 Dose: 50 mg Documented by: Microbiology Results 03/01/21 19:50 Clean Catch Urine [place] Count - Final BETWEEN 10,000 & 100,000 CFU/ML 03/01/21 19:50 Clean Catch Urine - Final MIXED [place]. 03/01/21 18:54 Blood - Blood Aerobic Blood Culture - Preliminary No growth in 24 hours. 03/01/21 18:54 Blood - Blood Anaerobic Blood Culture - Preliminary No growth in 24 hours. 03/01/21 18:25 Blood - Blood Aerobic Blood Culture - Preliminary No growth in 24 hours. 03/01/21 18:25 Blood - Blood Anaerobic Blood Culture - Preliminary No growth in 24 hours. Assessment/ Plan: Nephrology Progress Note Mild dyspnea today. Grimes removed today. No chest pain. No acute events overnight Vitals, medications blood work and imaging reviewed in the chart General: Oriented x3, Cooperative, Mild distress HEENT: Atraumatic Neck: Supple Respiratory: Clear to auscultation bilaterally Cardiovascular: LE Edema 1+, Regular rate/rhythm Gastrointestinal: Non-distended, Tenderness Musculoskeletal: No clubbing, No contractures Integumentary: No rashes, No cyanosis Neurological: Normal speech Laboratory Data (last 24 hrs) 03/01/21 18:25: Lipase 85 03/01/21 17:10: PT 12.3, INR 1.07 03/01/21 17:10: WBC 20.90 H*, Hgb 10.2 L, Hct 30.9 L, Plt Count 349 03/01/21 17:10: Sodium 135 L, Potassium 3.6, BUN 30 H, Creatinine 1.65 H, Glucose 160 H, Magnesium 1.3 L* D, Total Bilirubin 0.4, AST 36, ALT 25, Alkaline Phosphatase 63 Imagings Data: EXAM DESCRIPTION: US - Extrem Venous W Compress Delta - 03/01/2021 8:30 pm CLINICAL HISTORY: PAIN COMPARISON: None. TECHNIQUE: Real-time sonographic evaluation of the bilateral lower extremity common femoral, superficial femoral, popliteal and posterior tibial veins was performed. FINDINGS: Normal compressibility, flow augmentation, phasic flow and spontaneous flow are identified in the left and right lower extremity common femoral, superficial femoral, popliteal and left posterior tibial veins. No intraluminal filling defects seen. Right posterior tibial vein were difficult to compress. DVT is doubtful but not excluded. IMPRESSION: No DVT in the left lower extremity. Right leg also appears to be clear of deep venous thrombosis though posterior tibial vein was more difficult to evaluate. EXAM DESCRIPTION: CT - Stone Protocol - 03/01/2021 7:20 pm CLINICAL HISTORY: ABDOMINAL DISTENTION COMPARISON: Abdomen Pelvis Wo Contrast dated 08/08/2018 TECHNIQUE: Axial [address] imaging of the abdomen and pelvis was performed without IV contrast. No IV contrast was given because of allergy, abnormal renal function, patient refusal or physician request. No oral contrast administered. All CT scans are performed using dose optimization technique as appropriate and may include automated exposure control or mA/KV adjustment according to patient size. FINDINGS: Airspace opacification is present in the medial left lung base not present on prior imaging. There is bronchiectasis in this region that was present on prior imaging. No pneumothorax or pleural effusion. Small hiatal hernia is present. No liver abnormality seen. Gallbladder is absent. No pancreatic abnormality seen peer biliary tree is normal size. Spleen is surgically absent. No hydronephrosis or suspicious renal mass. Left kidney is smaller than the right. No perinephric stranding. No significant adrenal finding. Isodense renal masses and pyelonephritis cannot be excluded in the absence of IV contrast. Well filled urinary bladder shows no wall thickening or mass. No urinary bladder calculi. Calcified uterine fibroid is seen. No primary ovarian or uterine process seen. No dilated bowel loops or bowel wall thickening. No appendicitis or other acute GI process identifiable. No free air, free fluid or inflammatory stranding. No hernia, mass or bulky lymphadenopathy. No suspicious bony findings. IMPRESSION: Patchy airspace opacification medial left lung base suspicious for early pneumonia. Correlation is needed with any clinical or laboratory findings. Abdomen and pelvis show no acute findings. Above detailed findings are stable from 2019. Full assessment is limited is the absence of IV contrast. EXAM DESCRIPTION: RAD - Chest Single View - 03/01/2021 6:40 pm CLINICAL HISTORY: SOB COMPARISON: August 16 TECHNIQUE: AP portable chest image was obtained 03/01/2021 6:40 pm . FINDINGS: Technical artifacts overlie the lower chest and there is additional respiratory motion artifact. Left subclavian pacemaker is in place. Minimal medial left base opacification is present. No significant failure or volume overload. Heart and vasculature are normal. No measurable pleural ef fusion and no pneumothorax. No acute bony abnormality seen. No acute aortic findings suspected. IMPRESSION: Minimal medial left base opacification. Early pneumonia cannot be excluded. Conclusions/Impression: RAQUEL likely due to hypovolemia CKD III -Discontinue IVF Hypomagnesemia -Give IV Mag prn DM II with CKD -RISS Mild malnutrition -Encourage nutrition Anemia in chronic illness -Monitor H&H Lobar PNA -Continue Zithromax & Rocephin Case discussed with Dr. Najera
[2021-03-04] MEDS: CEFTRIAXONE 1 GM/NS 50 ML 1 GM/50 ML BAG IV SCH (22:09)
[2021-03-05 06:53] LABS: Absolute Lymphocytes (CBC) 3.1 K/uL (0.7-4.9); Basophils % 0.9 % (0-1.3); Hematocrit 27.9 % (36.0-45.0); Lymphocytes % 28.7 % (15.3-44.8); MPV 7.9 fL (7.6-11.3)
[2021-03-05 07:19] LABS: Albumin 2.7 g/dL (3.4-5.0); Bilirubin Total 0.1 mg/dL (0.2-1.0); Magnesium 1.9 mg/dL (1.8-2.4); Potassium 4.1 mmol/L (3.5-5.1); Protein, Total 6.6 g/dL (6.4-8.2)
[2021-03-05] MEDS: INSULIN -REGULAR HUMAN 50 UNIT/0.5 ML ML SQ SCH ×4 (07:30→20:39)
[2021-03-05 09:11] LABS: Anisocytosis 1+; Blood Morphology Comment NOTED (NOT SEEN); Macrocytosis 1+; Platelet Estimate INCR
[2021-03-05 09:12] LABS: Platelets, Giant FEW
[2021-03-05] MEDS: ENOXAPARIN 40 MG/0.4 ML SQ SCH (09:35)
[2021-03-05] MEDS: FE SULF/FA/VIT B COMP & C TAB PO SCH (09:36)
[2021-03-05] MEDS: allopurinoL 100 MG TAB PO SCH (09:36)
[2021-03-05] MEDS: DOXEPIN HCL 25 MG CAP PO SCH ×2 (09:37→20:40)
[2021-03-05] MEDS: FOLIC ACID 1 MG TABLET PO SCH (09:37)
[2021-03-05] MEDS: DULOXETINE 30 MG CAP PO SCH (09:37)
[2021-03-05] MEDS: ATORVASTATIN 40 MG TAB PO SCH (09:37)
[2021-03-05] MEDS: HYDROCODONE/APAP 5/325 MG TAB PO PRN ×2 (09:40→20:41)
[2021-03-05] MEDS ORDERED: DOCUSATE NA 100 MG CAP PO ONE (12:16)
[2021-03-05] MEDS: BENZONATATE 100 MG CAP PO PRN (13:15)
[2021-03-05] MEDS ORDERED: GLUCAGON 1 MG/VIAL IM PRN (15:04)
[2021-03-05] MEDS ORDERED: DIAZEPAM 5 MG TABLET PO PRN (15:04)
[2021-03-05] MEDS ORDERED: D50W 25 GM/50 ML VIAL IV PRN (15:39)
[2021-03-05] MEDS ORDERED: METHYLPREDNISOLONE 125 MG INJ IV ONE (16:00)
--- NOTE | 2021-03-05 16:05 | CON ---
Date of Consultation: 03/02/2021 Reason For Consultation: Elevated troponin. History Of Present Illness: Ms. Salguero is 61. We know her from the past. She has a history of anemi a, pacemaker, chronic renal disease, chronic diastolic congestive heart failure, diabetes, dyslipidem ia, rheumatoid arthritis, and hypertension. Comes in with pneumonia and elevated troponin. I was co nsulted. No cardiac symptoms reported. She did have shortness of breath secondary to pneumonia. So me chills and no fever. No chest pain. No unexplained nausea, vomiting, diaphoresis, PND, orthopnea , pedal edema, palpitations, or syncope. Past Medical History: As stated above. Allergies: SHE IS ALLERGIC TO FISH AND SULFASALAZINE. Review of Systems: Negative. Social History: Negative. Family History: Negative. Medications: At home include methotrexate, Ozempic, inhalers, Bumex, aspirin, Lipitor, insulin, and Zestril. Physical Examination: Vital Signs: Stable, afebrile, sinus rhythm. HEENT: Negative. Neck: Supple with no bruit. Chest: Clear. Cardiac: Revealed normal rhythm. No murmurs, gallops, or rubs. Abdomen: Obese, but benign. Extremities: Revealed no clubbing, cyanosis, or edema. Diagnostic Data: EKG showed nonspecific changes. Venous Doppler is normal. Creatinine is 1.49. Wh ite count is 21,000, hemoglobin 10.2. Glucose of 124. Magnesium was 1.3, supplemented to 1.9. Trop onin was 0.17. Procalcitonin is 0.21. BNP 675. She had a negative Lexiscan in March 2020. Her last echo in March 2020 showed normal ejection fraction with diastolic congestive heart failure. Impression And Plan: 1.Elevated troponin secondary to demand ischemia from her pneumonia. 2.Hypomagnesemia, supplemented. 3.Renal insufficiency. 4.Elevated white count secondary to pneumonia. 5.Mild anemia. 6.Diabetes, poorly controlled. 7.Elevated procalcitonin, elevated BNP secondary to her infection. 8.Hypertension, well controlled. 9.Rheumatoid arthritis. 10.Dyslipidemia. 11.Status post pacemaker. 12.Chronic renal disease. There is another echocardiogram pending on Ms. Salguero. I doubt it is dandre g to show anything unusual. If this shows some wall motion abnormalities, we will readdress the issu e. Otherwise, continue her present regimen including antibiotics and insulin. I will discuss the ca se further with Dr. Early. LETHA/MICAELA Voice ID: [id number] Report ID: [id number]
[2021-03-05] MEDS: TRAMADOL HCL 50 MG TAB PO PRN (17:31)
[2021-03-05] MEDS ORDERED: MAGNESIUM HYDROXIDE 8% 30 ML PO ONE (20:24)
--- NOTE | 2021-03-05 20:33 | P.PN ---
Date of Service: 03/05/21 Vital Signs Temp Pulse Resp BP Pulse Ox 97.6 F 63 16 125/60 97 03/05/21 16:00 03/05/21 16:00 03/05/21 17:31 03/05/21 16:00 03/05/21 17:31 Medications Hydrocodone Bitart/Acetaminophen (Hydrocodone/Apap 5/325 Mg Tab) 1 tab PO Q6H PRN PRN Reason: Pain scale 5-7 (Moderate) Last Admin: 03/05/21 09:40 Dose: 1 tab Documented by: Allopurinol (Allopurinol 100 Mg Tab) 200 mg PO DAILY [facility] Last Admin: 03/05/21 09:36 Dose: 200 mg Documented by: Amitriptyline HCl (Amitriptyline 50 Mg Tab) 50 mg PO BEDTIME [facility] Last Admin: 03/04/21 20:14 Dose: 50 mg Documented by: Aspirin (Aspirin 81 Mg Chewable Tablet) 81 mg PO DAILY [facility] Atorvastatin Calcium (Atorvastatin 40 Mg Tab) 40 mg PO DAILY [facility] Last Admin: 03/05/21 09:37 Dose: 40 mg Documented by: Benzonatate (Benzonatate 100 Mg Cap) 100 mg PO TID PRN PRN Reason: COUGH Last Admin: 03/05/21 13:15 Dose: 100 mg Documented by: Bumetanide (Bumetanide 1 Mg Tablet) 2 mg PO DAILY [facility] Dextrose (D50w 25 Gm/50 Ml Vial) 12.5 gm IV PRN PRN; Protocol PRN Reason: HYPOGLYCEMIA Diazepam (Diazepam 5 Mg Tablet) 5 mg PO BID PRN PRN Reason: ANXIETY Docusate Sodium (Docusate Na 100 Mg Cap) 100 mg PO BID [facility] Doxepin HCl (Doxepin Hcl 25 Mg Cap) 50 mg PO DAILY [facility] Last Admin: 03/05/21 09:37 Dose: 50 mg Documented by: Doxepin HCl (Doxepin Hcl 25 Mg Cap) 75 mg PO BEDTIME [facility] Last Admin: 03/04/21 20:14 Dose: 75 mg Documented by: Duloxetine HCl (Duloxetine 30 Mg Cap) 60 mg PO DAILY [facility] Last Admin: 03/05/21 09:37 Dose: 60 mg Documented by: Enoxaparin Sodium (Enoxaparin 40 Mg/0.4 Ml) 40 mg SQ DAILY [facility] Last Admin: 03/05/21 09:35 Dose: 40 mg Documented by: Folic Acid (Folic Acid 1 Mg Tablet) 1 mg PO DAILY [facility] Last Admin: 03/05/21 09:37 Dose: 1 mg Documented by: Glucagon (Glucagon 1 Mg/Vial) 1 mg IM 1X PRN; Protocol PRN Reason: HYPOGLYCEMIA Guaifenesin (Guaifenesin 600 Mg Sa Tab) 600 mg PO BID [facility] Home Med (Aripiprazole [Aripiprazole]) 2 mg PO DAILY [facility] Azithromycin 500 mg/ Sodium (Chloride) 250 mls @ 250 mls/hr IVPB Q24H [facility]; Protocol Last Admin: 03/04/21 20:14 Dose: 250 mls Documented by: Ceftriaxone Sodium/Sodium Chloride (Rocephin 1gm/50 Ml Ivpb) 1 gm in 50 mls @ 100 mls/hr IV Q24H [facility]; Protocol Last Admin: 03/04/21 22:09 Dose: 50 mls Documented by: Insulin Human NPH (Nph (Human) 100 Units/Ml Insulin) 15 units SQ BID [facility] Insulin Human Regular (Insulin -Regular Human 50 Unit/0.5 Ml Ml) 0 unit SQ ACHS [facility]; Protocol Last Admin: 03/05/21 16:30 Dose: Not Given Documented by: Lisinopril (Lisinopril 5 Mg Tab) 5 mg PO DAILY [facility] Methotrexate (Methotrexate 2.5 Mg Tab) 12.5 mg PO EVERY 7TH DAY [facility] Multivitamins/Iron (Fe Sulf/Fa/Vit B Comp & C Tab) 1 tab PO DAILY WITH BREAKFAST [facility] Last Admin: 03/05/21 09:36 Dose: 1 tab Documented by: Ondansetron HCl (Ondansetron 4 Mg/2 Ml Vial) 4 mg IV Q6HP PRN PRN Reason: NAUSEA / VOMITING Sodium Chloride (Flush Normal Saline 10 Ml) 10 ml IV BID [facility] Last Admin: 03/05/21 09:00 Dose: 10 ml Documented by: Tramadol HCl (Tramadol Hcl 50 Mg Tab) 50 mg PO TID PRN PRN Reason: Pain scale 2-4 (Mild) Last Admin: 03/05/21 17:31 Dose: 50 mg Documented by: Microbiology Results 03/01/21 19:50 Clean Catch Urine [place] Count - Final BETWEEN 10,000 & 100,000 CFU/ML 03/01/21 19:50 Clean Catch Urine - Final MIXED [place]. 03/01/21 18:54 Blood - Blood Aerobic Blood Culture - Preliminary No growth in 24 hours. 03/01/21 18:54 Blood - Blood Anaerobic Blood Culture - Preliminary No growth in 24 hours. 03/01/21 18:25 Blood - Blood Aerobic Blood Culture - Preliminary No growth in 24 hours. 03/01/21 18:25 Blood - Blood Anaerobic Blood Culture - Preliminary No growth in 24 hours. Assessment/ Plan: Nephrology Progress Note Constipation Cough with sputum No chest pain. No acute events overnight Vitals, medications blood work and imaging reviewed in the chart General: Oriented x3, Cooperative, Mild distress HEENT: Atraumatic Neck: Supple Respiratory: Clear to auscultation bilaterally Cardiovascular: LE Edema 1+, Regular rate/rhythm Gastrointestinal: Non-distended, Tenderness Musculoskeletal: No clubbing, No contractures Integumentary: No rashes, No cyanosis Neurological: Normal speech Laboratory Data (last 24 hrs) 03/01/21 18:25: Lipase 85 03/01/21 17:10: PT 12.3, INR 1.07 03/01/21 17:10: WBC 20.90 H*, Hgb 10.2 L, Hct 30.9 L, Plt Count 349 03/01/21 17:10: Sodium 135 L, Potassium 3.6, BUN 30 H, Creatinine 1.65 H, Glucose 160 H, Magnesium 1.3 L* D, Total Bilirubin 0.4, AST 36, ALT 25, Alkaline Phosphatase 63 Imagings Data: EXAM DESCRIPTION: US - Extrem Venous W Compress Delta - 03/01/2021 8:30 pm CLINICAL HISTORY: PAIN COMPARISON: None. TECHNIQUE: Real-time sonographic evaluation of the bilateral lower extremity common femoral, superficial femoral, popliteal and posterior tibial veins was performed. FINDINGS: Normal compressibility, flow augmentation, phasic flow and spontaneous flow are identified in the left and right lower extremity common femoral, superficial femoral, popliteal and left posterior tibial veins. No intraluminal filling defects seen. Right posterior tibial vein were difficult to compress. DVT is doubtful but not excluded. IMPRESSION: No DVT in the left lower extremity. Right leg also appears to be clear of deep venous thrombosis though posterior tibial vein was more difficult to evaluate. EXAM DESCRIPTION: CT - Stone Protocol - 03/01/2021 7:20 pm CLINICAL HISTORY: ABDOMINAL DISTENTION COMPARISON: Abdomen Pelvis Wo Contrast dated 08/08/2018 TECHNIQUE: Axial [address] imaging of the abdomen and pelvis was performed without IV contrast. No IV contrast was given because of allergy, abnormal renal function, patient refusal or physician request. No oral contrast administered. All CT scans are performed using dose optimization technique as appropriate and may include automated exposure control or mA/KV adjustment according to patient size. FINDINGS: Airspace opacification is present in the medial left lung base not present on prior imaging. There is bronchiectasis in this region that was present on prior imaging. No pneumothorax or pleural effusion. Small hiatal hernia is present. No liver abnormality seen. Gallbladder is absent. No pancreatic abnormality seen peer biliary tree is normal size. Spleen is surgically absent. No hydronephrosis or suspicious renal mass. Left kidney is smaller than the right. No perinephric stranding. No significant adrenal finding. Isodense renal masses and pyelonephritis cannot be excluded in the absence of IV contrast. Well filled urinary bladder shows no wall thickening or mass. No urinary bladder calculi. Calcified uterine fibroid is seen. No primary ovarian or uterine p rocess seen. No dilated bowel loops or bowel wall thickening. No appendicitis or other acute GI process identifiable. No free air, free fluid or inflammatory stranding. No hernia, mass or bulky lymphadenopathy. No suspicious bony findings. IMPRESSION: Patchy airspace opacification medial left lung base suspicious for early pneumonia. Correlation is needed with any clinical or laboratory findings. Abdomen and pelvis show no acute findings. Above detailed findings are stable from 2018. Full assessment is limited is the absence of IV contrast. EXAM DESCRIPTION: RAD - Chest Single View - 03/01/2021 6:40 pm CLINICAL HISTORY: SOB COMPARISON: August 16 TECHNIQUE: AP portable chest image was obtained 03/01/2021 6:40 pm . FINDINGS: Technical artifacts overlie the lower chest and there is additional respiratory motion artifact. Left subclavian pacemaker is in place. Minimal medial left base opacification is present. No significant failure or volume overload. Heart and vasculature are normal. No measurable pleural effusion and no pneumothorax. No acute bony abnormality seen. No acute aortic findings suspected. IMPRESSION: Minimal medial left base opacification. Early pneumonia cannot be excluded. Conclusions/Impression: RAQUEL likely due to hypovolemia CKD III -No NSAIDs Hypomagnesemia -Give IV Mag prn DM II with CKD -RISS Mild malnutrition -Encourage nutrition Anemia in chronic illness -Monitor H&H Lobar PNA -Continue Zithromax & Rocephin -Start Mucinex BID Slow transit constipation -Give MoM X1 dose -Start colace bid
[2021-03-05] MEDS: AZITHROMYCIN IV 500 MG in NA CHLORIDE 0.9% 250 ML IVPB SCH (20:37)
[2021-03-05] MEDS: NPH (HUMAN) 100 UNITS/ML INSULIN SQ SCH (20:38)
[2021-03-05] MEDS: AMITRIPTYLINE 50 MG TAB PO SCH (20:39)
[2021-03-05] MEDS: DOCUSATE NA 100 MG CAP PO SCH (20:45)
[2021-03-05] MEDS: GUAIFENESIN 600 MG SA TAB PO SCH (20:45)
[2021-03-05] MEDS: CEFTRIAXONE 1 GM/NS 50 ML 1 GM/50 ML BAG IV SCH (21:49)
[2021-03-06] MEDS: BENZONATATE 100 MG CAP PO PRN (02:50)
[2021-03-06] MEDS: HYDROCODONE/APAP 5/325 MG TAB PO PRN ×3 (03:31→20:23)
--- NOTE | 2021-03-06 07:20 | RAD REPORT ---
EXAM DESCRIPTION: [place] Single View03/06/2021 6:56 am CLINICAL HISTORY: Shortness of breath COMPARISON: March 01 2021 FINDINGS: Worsening in left lung opacities. Small left pleural effusion may be present. Krysten are haz y which may indicate mild interstitial pulmonary edema Heart is mildly enlarged. Pacemaker leads in place. IMPRESSION: Worsening in moderate left lower lobe opacities probably pneumonia There may be a mild superimposed interstitial pulmonary edema
[2021-03-06] MEDS ORDERED: HOME MED 1 EA UNK (Bumetanide [Bumetanide] 2 MG Tablet) PO SCH (09:00)
[2021-03-06] MEDS: INSULIN -REGULAR HUMAN 50 UNIT/0.5 ML ML SQ SCH ×4 (10:08→20:09)
[2021-03-06] MEDS: ENOXAPARIN 40 MG/0.4 ML SQ SCH (10:09)
[2021-03-06] MEDS: allopurinoL 100 MG TAB PO SCH (10:10)
[2021-03-06] MEDS: DOXEPIN HCL 25 MG CAP PO SCH ×2 (10:10→20:07)
[2021-03-06] MEDS: DULOXETINE 30 MG CAP PO SCH (10:10)
[2021-03-06] MEDS: ASPIRIN 81 MG CHEWABLE TABLET PO SCH (10:10)
[2021-03-06] MEDS: FOLIC ACID 1 MG TABLET PO SCH (10:11)
[2021-03-06] MEDS: DOCUSATE NA 100 MG CAP PO SCH ×2 (10:11→20:06)
[2021-03-06] MEDS: lisinopriL 5 MG TAB PO SCH (10:11)
[2021-03-06] MEDS: BUMETANIDE 1 MG TABLET PO SCH (10:11)
[2021-03-06] MEDS: FE SULF/FA/VIT B COMP & C TAB PO SCH (10:11)
[2021-03-06] MEDS: GUAIFENESIN 600 MG SA TAB PO SCH ×2 (10:12→20:07)
[2021-03-06] MEDS: ATORVASTATIN 40 MG TAB PO SCH (10:12)
[2021-03-06] MEDS ORDERED: MAGNESIUM HYDROXIDE 8% 30 ML PO PRN (10:33)
--- NOTE | 2021-03-06 10:38 | P.PN ---
Date of Service: 03/06/21 Vital Signs Temp Pulse Resp BP Pulse Ox 97.2 F 64 16 148/69 H 99 03/06/21 08:00 03/06/21 10:11 03/06/21 10:09 03/06/21 10:11 03/06/21 10:09 Medications Hydrocodone Bitart/Acetaminophen (Hydrocodone/Apap 5/325 Mg Tab) 1 tab PO Q6H PRN PRN Reason: Pain scale 5-7 (Moderate) Last Admin: 03/06/21 10:09 Dose: 1 tab Documented by: Allopurinol (Allopurinol 100 Mg Tab) 200 mg PO DAILY [facility] Last Admin: 03/06/21 10:10 Dose: 200 mg Documented by: Amitriptyline HCl (Amitriptyline 50 Mg Tab) 50 mg PO BEDTIME [facility] Last Admin: 03/05/21 20:39 Dose: 50 mg Documented by: Aspirin (Aspirin 81 Mg Chewable Tablet) 81 mg PO DAILY [facility] Last Admin: 03/06/21 10:10 Dose: 81 mg Documented by: Atorvastatin Calcium (Atorvastatin 40 Mg Tab) 40 mg PO DAILY [facility] Last Admin: 03/06/21 10:12 Dose: 40 mg Documented by: Benzonatate (Benzonatate 100 Mg Cap) 100 mg PO TID PRN PRN Reason: COUGH Last Admin: 03/06/21 02:50 Dose: 100 mg Documented by: Bumetanide (Bumetanide 1 Mg Tablet) 2 mg PO DAILY [facility] Last Admin: 03/06/21 10:11 Dose: 2 mg Documented by: Dextrose (D50w 25 Gm/50 Ml Vial) 12.5 gm IV PRN PRN; Protocol PRN Reason: HYPOGLYCEMIA Diazepam (Diazepam 5 Mg Tablet) 5 mg PO BID PRN PRN Reason: ANXIETY Docusate Sodium (Docusate Na 100 Mg Cap) 100 mg PO BID [facility] Last Admin: 03/06/21 10:11 Dose: 100 mg Documented by: Doxepin HCl (Doxepin Hcl 25 Mg Cap) 50 mg PO DAILY [facility] Last Admin: 03/06/21 10:10 Dose: 50 mg Documented by: Doxepin HCl (Doxepin Hcl 25 Mg Cap) 75 mg PO BEDTIME [facility] Last Admin: 03/05/21 20:40 Dose: 75 mg Documented by: Duloxetine HCl (Duloxetine 30 Mg Cap) 60 mg PO DAILY [facility] Last Admin: 03/06/21 10:10 Dose: 60 mg Documented by: Enoxaparin Sodium (Enoxaparin 40 Mg/0.4 Ml) 40 mg SQ DAILY [facility] Last Admin: 03/06/21 10:09 Dose: 40 mg Documented by: Folic Acid (Folic Acid 1 Mg Tablet) 1 mg PO DAILY [facility] Last Admin: 03/06/21 10:11 Dose: 1 mg Documented by: Glucagon (Glucagon 1 Mg/Vial) 1 mg IM 1X PRN; Protocol PRN Reason: HYPOGLYCEMIA Guaifenesin (Guaifenesin 600 Mg Sa Tab) 600 mg PO BID [facility] Last Admin: 03/06/21 10:12 Dose: 600 mg Documented by: Home Med (Aripiprazole [Aripiprazole]) 2 mg PO DAILY [facility] Last Admin: 03/06/21 09:00 Dose: Not Given Documented by: Azithromycin 500 mg/ Sodium (Chloride) 250 mls @ 250 mls/hr IVPB Q24H [facility]; Protocol Last Admin: 03/05/21 20:37 Dose: 250 mls Documented by: Ceftriaxone Sodium/Sodium Chloride (Rocephin 1gm/50 Ml Ivpb) 1 gm in 50 mls @ 100 mls/hr IV Q24H [facility]; Protocol Last Admin: 03/05/21 21:49 Dose: 50 mls Documented by: Insulin Human NPH (Nph (Human) 100 Units/Ml Insulin) 15 units SQ BID [facility] Last Admin: 03/05/21 20:38 Dose: 15 units Documented by: Insulin Human Regular (Insulin -Regular Human 50 Unit/0.5 Ml Ml) 0 unit SQ ACHS [facility]; Protocol Last Admin: 03/06/21 10:08 Dose: 2 unit Documented by: Lisinopril (Lisinopril 5 Mg Tab) 5 mg PO DAILY [facility] Last Admin: 03/06/21 10:11 Dose: 5 mg Documented by: Magnesium Hydroxide (Magnesium Hydroxide 8% 30 Ml) 30 ml PO BID PRN PRN Reason: CONSTIPATION Methotrexate (Methotrexate 2.5 Mg Tab) 12.5 mg PO EVERY 7TH DAY [facility] Multivitamins/Iron (Fe Sulf/Fa/Vit B Comp & C Tab) 1 tab PO DAILY WITH BREAKFAST [facility] Last Admin: 03/06/21 10:11 Dose: 1 tab Documented by: Ondansetron HCl (Ondansetron 4 Mg/2 Ml Vial) 4 mg IV Q6HP PRN PRN Reason: NAUSEA / VOMITING Sodium Chloride (Flush Normal Saline 10 Ml) 10 ml IV BID [facility] Last Admin: 03/06/21 09:00 Dose: 10 ml Documented by: Tramadol HCl (Tramadol Hcl 50 Mg Tab) 50 mg PO TID PRN PRN Reason: Pain scale 2-4 (Mild) Last Admin: 03/05/21 17:31 Dose: 50 mg Documented by: Microbiology Results 03/01/21 19:50 Clean Catch Urine Melber Count - Final BETWEEN 10,000 & 100,000 CFU/ML 03/01/21 19:50 Clean Catch Urine - Final MIXED KURTIS. 03/01/21 18:54 Blood - Blood Aerobic Blood Culture - Preliminary No growth in 24 hours. 03/01/21 18:54 Blood - Blood Anaerobic Blood Culture - Preliminary No growth in 24 hours. 03/01/21 18:25 Blood - Blood Aerobic Blood Culture - Preliminary No growth in 24 hours. 03/01/21 18:25 Blood - Blood Anaerobic Blood Culture - Preliminary No growth in 24 hours. Assessment/ Plan: Nephrology Progress Note Constipation. No BM today Cough with sputum improving No chest pain. No acute events overnight Vitals, medications blood work and imaging reviewed in the chart General: Oriented x3, Cooperative, Mild distress HEENT: Atraumatic Neck: Supple Respiratory: Clear to auscultation bilaterally Cardiovascular: LE Edema 1+, Regular rate/rhythm Gastrointestinal: Non-distended, Tenderness Musculoskeletal: No clubbing, No contractures Integumentary: No rashes, No cyanosis Neurological: Normal speech Laboratory Data (last 24 hrs) 03/01/21 18:25: Lipase 85 03/01/21 17:10: PT 12.3, INR 1.07 03/01/21 17:10: WBC 20.90 H*, Hgb 10.2 L, Hct 30.9 L, Plt Count 349 03/01/21 17:10: Sodium 135 L, Potassium 3.6, BUN 30 H, Creatinine 1.65 H, Glucose 160 H, Magnesium 1.3 L* D, Total Bilirubin 0.4, AST 36, ALT 25, Alkaline Phosphatase 63 Imagings Data: EXAM DESCRIPTION: US - Extrem Venous W Compress Delta - 03/01/2021 8:30 pm CLINICAL HISTORY: PAIN COMPARISON: None. TECHNIQUE: Real-time sonographic evaluation of the bilateral lower extremity common femoral, superficial femoral, popliteal and posterior tibial veins was performed. FINDINGS: Normal compressibility, flow augmentation, phasic flow and spontaneous flow are identified in the left and right lower extremity common femoral, superficial femoral, popliteal and left posterior tibial veins. No intraluminal filling defects seen. Right posterior tibial vein were difficult to compress. DVT is doubtful but not excluded. IMPRESSION: No DVT in the left lower extremity. Right leg also appears to be clear of deep venous thrombosis though posterior tibial vein was more difficult to evaluate. EXAM DESCRIPTION: CT - Stone Protocol - 03/01/2021 7:20 pm CLINICAL HISTORY: ABDOMINAL DISTENTION COMPARISON: Abdomen Pelvis Wo Contrast dated 08/08/2018 TECHNIQUE: Axial [address] imaging of the abdomen and pelvis was performed without IV contrast. No IV contrast was given because of allergy, abnormal renal function, patient refusal or physician request. No oral contrast administered. All CT scans are performed using dose optimization technique as appropriate and may include automated exposure control or mA/KV adjustment according to patient size. FINDINGS: Airspace opacification is present in the medial left lung base not present on prior imaging. There is bronchiectasis in this region that was present on prior imaging. No pneumothorax or pleural effusion. Small hiatal hernia is present. No liver abnormality seen. Gallbladder is absent. No pancreatic abnormality seen peer biliary tree is normal size. Spleen is surgically absent. No hydronephrosis or suspicious renal mass. Left kidney is smaller than the right. No perinephric stranding. No significant adrenal finding. Isodense renal masses and pyelonephritis cannot be excluded in the absence of IV contrast. Well filled urinary bladder shows no wall thickening or mass. No urinary bladder calculi. Calcified uterine fibroid is seen. No primary ovarian or uterine process seen. No dilated bowel loops or bowel wall thickening. No appendicitis or other acute GI process identifiable. No free air, free fluid or inflammatory stranding. No hernia, mass or bulky lymphadenopathy. No suspicious bony findings. IMPRESSION: Patchy airspace opacification medial left lung base suspicious for early pneumonia. Correlation is needed with any clinical or laboratory findings. Abdomen and pelvis show no acute findings. Above detailed findings are stable from 2019. Full assessment is limited is the absence of IV contrast. EXAM DESCRIPTION: RAD - Chest Single View - 03/01/2021 6:40 pm CLINICAL HISTORY: SOB COMPARISON: Dang 2 TECHNIQUE: AP portable chest image was obtained 03/01/2021 6:40 pm . FINDINGS: Technical artifacts overlie the lower chest and there is additional respiratory motion artifact. Left subclavian pacemaker is in place. Minimal medial left base opacification is present. No significant failure or volume overload. Heart and vasculature are normal. No measurable pleural effusion and no pneumothorax. No acute bony abnormality seen. No acute aortic findings suspected. IMPRESSION: Minimal medial left base opacification. Early pneumonia cannot be excluded. Conclusions/Impression: RAQUEL likely due to hypovolemia, improved CKD III -No NSAIDs Hypomagnesemia -Give IV Mag prn HTN -Restart Lisinopril and titrate as needed LE Edema -Restart Bumex DM II with CKD -RISS Mild malnutrition -Encourage nutrition Anemia in chronic illness -Monitor H&H Gout -Restart Allopurinol Lobar PNA -Continue Zithromax & Rocephin -Continue Mucinex BID Slow transit constipation -Continue Colace BID -MoM prn
[2021-03-06] MEDS: NPH (HUMAN) 100 UNITS/ML INSULIN SQ SCH ×2 (11:37→20:09)
[2021-03-06] MEDS ORDERED: METHOTREXATE 2.5 MG PO SCH (12:00)
[2021-03-06] MEDS ORDERED: Semaglutide [Ozempic] 0.25 MG/0.2 ML Pen SQ SCH (13:30)
[2021-03-06] MEDS: TRAMADOL HCL 50 MG TAB PO PRN (15:08)
[2021-03-06] MEDS: HYDROCORTISONE SUC 100 MG INJ IV SCH (18:19)
[2021-03-06] MEDS: AMITRIPTYLINE 50 MG TAB PO SCH (20:06)
[2021-03-06] MEDS: AZITHROMYCIN IV 500 MG in NA CHLORIDE 0.9% 250 ML IVPB SCH (20:10)
[2021-03-06] MEDS ORDERED: CEFTRIAXONE 1000 MG/VIAL ONE (21:00)
[2021-03-06] MEDS ORDERED: NA CHLORIDE 0.9% 0 ML ONE (21:00)
[2021-03-06] MEDS: CEFTRIAXONE 1 GM/NS 50 ML 1 GM/50 ML BAG IV SCH (21:00)
[2021-03-06] MEDS ORDERED: NA CHLORIDE 0.9% 50 ML ONE (22:26)
[2021-03-07] MEDS: HYDROCORTISONE SUC 100 MG INJ IV SCH ×3 (01:13→17:41)
[2021-03-07] MEDS: INSULIN -REGULAR HUMAN 50 UNIT/0.5 ML ML SQ SCH ×4 (07:30→20:49)
[2021-03-07] MEDS: DOXEPIN HCL 25 MG CAP PO SCH ×2 (09:00→09:38)
[2021-03-07] MEDS: NPH (HUMAN) 100 UNITS/ML INSULIN SQ SCH ×2 (09:11→21:06)
[2021-03-07] MEDS: ENOXAPARIN 40 MG/0.4 ML SQ SCH (09:12)
[2021-03-07] MEDS: GUAIFENESIN 600 MG SA TAB PO SCH ×2 (09:12→20:47)
[2021-03-07] MEDS: FE SULF/FA/VIT B COMP & C TAB PO SCH (09:12)
[2021-03-07] MEDS: allopurinoL 100 MG TAB PO SCH (09:12)
[2021-03-07] MEDS: ASPIRIN 81 MG CHEWABLE TABLET PO SCH (09:12)
[2021-03-07] MEDS: ATORVASTATIN 40 MG TAB PO SCH (09:12)
[2021-03-07] MEDS: DULOXETINE 30 MG CAP PO SCH (09:13)
[2021-03-07] MEDS: FOLIC ACID 1 MG TABLET PO SCH (09:13)
[2021-03-07] MEDS: BUMETANIDE 1 MG TABLET PO SCH (09:13)
[2021-03-07] MEDS: lisinopriL 5 MG TAB PO SCH (09:14)
[2021-03-07] MEDS: DOCUSATE NA 100 MG CAP PO SCH ×2 (09:14→20:46)
--- NOTE | 2021-03-07 11:42 | P.PN ---
Subjective Date of Service: 03/03/21 Patient appears to be doing well. She clinically is sitting in a chair in her respiratory status looks to be stable. Continue with nebulizer treatments and continue with IV antibiotic therapy. Will repeat chest x-ray to see if the pneumonia is improving. Hopefully we can discharge her home. My concern is she lives at home Rob so. Long-term mcgrath she will definitely need to get home health as well and follow closely with Pulmonary. Review of Systems 10-point ROS is otherwise unremarkable Physical Examination - Vital Signs Temperature: 97.4 F Blood Pressure: 129/59 Pulse: 64 Respirations: 16 Pulse Ox (%): 98 - Physical Exam General: Alert, In no apparent distress, Oriented x3 HEENT: Atraumatic, PERRLA, EOMI Neck: Supple, JVD not distended Respiratory: Diminished Cardiovascular: Regular rate/rhythm, Normal S1 S2, No murmurs Gastrointestinal: Normal bowel sounds, Soft and benign, Non-distended, No tenderness Musculoskeletal: No clubbing, No swelling, Tenderness Neurological: Sensation intact, Cranial nerves 3-12 intact - Studies Microbiology Data (last 24 hrs): 03/01/21 18:54 Blood - Blood Aerobic Blood Culture - Final No growth in 5 days. 03/01/21 18:54 Blood - Blood Anaerobic Blood Culture - Final No growth in 5 days. 03/01/21 18:25 Blood - Blood Aerobic Blood Culture - Final No growth in 5 days. 03/01/21 18:25 Blood - Blood Anaerobic Blood Culture - Final No growth in 5 days. Medications List Reviewed: Yes Assessment & Plan - Problems (Diagnosis) (1) Pneumonia Onset Date: 07/29/15 Current Visit: No Status: Acute (2) Acute renal failure syndrome Current Visit: No Status: Acute (3) Bronchitis Onset Date: 07/15/15 Current Visit: No Status: Acute (4) CKD (chronic kidney disease), stage III Onset Date: 07/15/15 Current Visit: No Status: Acute Qualifiers: Chronic kidney disease stage 3 subtype: stage 3a (GFR 45-59) Qualified Code(s): N18.31 - Chronic kidney disease, stage 3a (5) Diabetes mellitus Current Visit: No Status: Acute (6) Rheumatoid arthritis Current Visit: No Status: Acute (7) Chronic back pain Onset Date: 07/15/15 Current Visit: No Status: Chronic Qualifiers: Back pain location: low back pain Back pain laterality: midline Sciatica presence: without sciatica (8) Depressive disorder Current Visit: No Status: Chronic (9) Diabetes mellitus type II, non insulin dependent Onset Date: 07/15/15 Current Visit: No Status: Chronic (10) Hyperlipidemia Current Visit: No Status: Chronic Qualifiers: Hyperlipidemia type: unspecified Qualified Code(s): E78.5 - Hyperlipidemia, unspecified (11) Hypertension Onset Date: 07/15/15 Current Visit: No Status: Chronic Qualifiers: Hypertension type: essential hypertension Qualified Code(s): I10 - Esse ntial (primary) hypertension (12) Obesity (BMI 30.0-34.9) Current Visit: No Status: Chronic - Plan 1. Continue with IV antibiotics 2. Awaiting sputum and blood culture 3. Repeat chest x-ray 4. Will proceed with CT scan of the chest if pneumonia is not improved 5. Appreciate pulmonary consultation 6. Continue with nebs as needed 7. O2 per protocol 8. Continue with gentle hydration; monitor renal function closely 9. Repeat labs including CBC and renal function in a.m. 10. Supplement magnesium level 11. Physical therapy evaluation 12. GI and DVT prophylaxis Discharge Plan: Home Plan to discharge in: Greater than 2 days - Advance Directives Does patient have a Living Will: No Does patient have a Durable POA for Healthcare: No - Code Status/Comfort Care Code Status Assessed: Yes Code Status: Full Code Critical Care: No
--- NOTE | 2021-03-07 11:42 | P.PN ---
Date of Service: 03/04/21 Subjective Patient is feeling a little bit down. She little tearful and states she does not feel as well today. Clinically she appears to be doing well. Will ambulate her and I think her biggest fear is being a home by herself. Review of Systems 10-point ROS is otherwise unremarkable Physical Examination - Vital Signs Reviewed - Physical Exam General: Alert, In no apparent distress, Oriented x3 HEENT: Atraumatic, PERRLA, EOMI Neck: Supple, JVD not distended Respiratory: Diminished Cardiovascular: Regular rate/rhythm, Normal S1 S2, No murmurs Gastrointestinal: Normal bowel sounds, Soft and benign, Non-distended, No tenderness Musculoskeletal: No clubbing, No swelling, Tenderness Neurological: Sensation intact, Cranial nerves 3-12 intact Assessment & Plan - Problems (Diagnosis) (1) Pneumonia Onset Date: 07/29/15 Current Visit: No Status: Acute (2) Acute renal failure syndrome Current Visit: No Status: Acute (3) Bronchitis Onset Date: 07/15/15 Current Visit: No Status: Acute (4) CKD (chronic kidney disease), stage III Onset Date: 07/15/15 Current Visit: No Status: Acute Qualifiers: Chronic kidney disease stage 3 subtype: stage 3a (GFR 45-59) Qualified Cod e(s): N18.31 - Chronic kidney disease, stage 3a (5) Diabetes mellitus Current Visit: No Status: Acute (6) Rheumatoid arthritis Current Visit: No Status: Acute (7) Chronic back pain Onset Date: 07/15/15 Current Visit: No Status: Chronic Qualifiers: Back pain location: low back pain Back pain laterality: midline Sciatica presence: without sciatica (8) Depressive disorder Current Visit: No Status: Chronic (9) Diabetes mellitus type II, non insulin dependent Onset Date: 07/15/15 Current Visit: No Status: Chronic (10) Hyperlipidemia Current Visit: No Status: Chronic Qualifiers: Hyperlipidemia type: unspecified Qualified Code(s): E78.5 - Hyperlipidemia, unspecified (11) Hypertension Onset Date: 07/15/15 Current Visit: No Status: Chronic Qualifiers: Hypertension type: essential hypertension Qualified Code(s): I10 - Es sential (primary) hypertension (12) Obesity (BMI 30.0-34.9) Current Visit: No Status: Chronic - Plan Continue with plan of care as mentioned below: 1. Continue with IV antibiotics 2. Awaiting sputum and blood culture 3. Repeat chest x-ray 4. Will proceed with CT scan of the chest if pneumonia is not improved 5. Appreciate pulmonary consultation 6. Continue with nebs as needed 7. O2 per protocol 8. Continue with gentle hydration; monitor renal function closely 9. Repeat labs including CBC and renal function in a.m. 10. Supplement magnesium level 11. Physical therapy evaluation; may need placement at a intermediate facility for a few weeks to build her strength up 12. GI and DVT prophylaxis Discharge Plan: Home Plan to discharge in: Greater than 2 days - Advance Directives Does patient have a Living Will: No Does patient have a Durable POA for Healthcare: No - Code Status/Comfort Care Code Status Assessed: Yes Code Status: Full Code Critical Care: No
[2021-03-07] MEDS: HYDROCODONE/APAP 5/325 MG TAB PO PRN ×2 (11:44→20:48)
--- NOTE | 2021-03-07 11:44 | P.PN ---
Date of Service: 03/05/21 Subjective Patient states she is not really able to care for self at this time. Will arrange for placement. Will speak to case management and will try to get this set up. Review of Systems 10-point ROS is otherwise unremarkable Physical Examination - Vital Signs Reviewed - Physical Exam General: Alert, In no apparent distress, Oriented x3 HEENT: Atraumatic, PERRLA, EOMI Neck: Supple, JVD not distended Respiratory: Diminished Cardiovascular: Regular rate/rhythm, Normal S1 S2, No murmurs Gastrointestinal: Normal bowel sounds, Soft and benign, Non-distended, No tenderness Musculoskeletal: No clubbing, No swelling, Tenderness in the right knee. Some swelling Neurological: Sensation intact, Cranial nerves 3-12 intact Assessment & Plan - Problems (Diagnosis) (1) Pneumonia Onset Date: 07/29/15 Current Visit: No Status: Acute (2) Acute renal failure syndrome Current Visit: No Status: Acute (3) Bronchitis Onset Date: 07/15/15 Current Visit: No Status: Acute (4) CKD (chronic kidney disease), stage III Onset Date: 07/15/15 Current Visit: No Status: Acute Qualifiers: Chronic kidney disease stage 3 subtype: stage 3a (GFR 45-59) Qualified Code(s): N18.31 - Chronic kidney disease, stage 3a (5) Diabetes mellitus Current Visit: No Status: Acute (6) Rheumatoid arthritis; right knee pain Current Visit: No Status: Acute (7) Chronic back pain Onset Date: 07/15/15 Current Visit: No Status: Chronic Qualifiers: Back pain location: low back pain Back pain laterality: midline Sciatica presence: without sciatica (8) Depressive disorder Current Visit: No Status: Chronic (9) Diabetes mellitus type II, non insulin dependent Onset Date: 07/15/15 Current Visit: No Status: Chronic (10) Hyperlipidemia Current Visit: No Status: Chronic Qualifiers: Hyperlipidemia type: unspecified Qualified Code(s): E78.5 - Hyperlipidemia, unspecified (11) Hypertension Onset Date: 07/15/15 Current Visit: No Status: Chronic Qualifiers: Hypertension type: essential hypertension Qualified Code(s): I10 - Essentia l (primary) hypertension (12) Obesity (BMI 30.0-34.9) Current Visit: No Status: Chronic - Plan Continue with plan of care as mentioned below: 1. Continue with IV antibiotics 2. Awaiting sputum and blood culture 3. Repeat chest x-ray 4. Will proceed with CT scan of the chest if pneumonia is not improved 5. Continue with IV steroids for the right knee pain and continue with medication for rheumatoid arthritis 6. Continue with nebs as needed 7. O2 per protocol 8. Continue with gentle hydration; monitor renal function closely 9. Repeat labs including CBC and renal function in a.m. 10. Supplement magnesium level 11. Physical therapy evaluation; may need placement at a alf facility for a few weeks to build her strength up 12. GI and DVT prophylaxis Discharge Plan: Home Plan to discharge in: Greater than 2 days - Advance Directives Does patient have a Living Will: No Does patient have a Durable POA for Healthcare: No - Code Status/Comfort Care Code Status Assessed: Yes Code Status: Full Code Critical Care: No
--- NOTE | 2021-03-07 11:46 | P.PN ---
Date of Service: 03/06/21 Subjective Patient is working on placement for senior living facility. Continue with current plan of care at this time. She is having some pain on the right knee and was limited in her ability to work with therapy. I am going to give her some steroids and see if that helps. She has a walker at home and I asked her family to bring this as well. She will need to go to senior living in build her strength up before she is safe to go home. We are working on [facility] placement. Review of Systems 10-point ROS is otherwise unremarkable Physical Examination - Vital Signs Reviewed - Physical Exam General: Alert, In no apparent distress, Oriented x3 HEENT: Atraumatic, PERRLA, EOMI Neck: Supple, JVD not distended Respiratory: Diminished Cardiovascular: Regular rate/rhythm, Normal S1 S2, No murmurs Gastrointestinal: Normal bowel sounds, Soft and benign, Non-distended, No tenderness Musculoskeletal: No clubbing, No swelling, Tenderness in the right knee. Some swelling Neurological: Sensation intact, Cranial nerves 3-12 intact Assessment & Plan - Problems (Diagnosis) (1) Pneumonia Onset Date: 07/29/15 Current Visit: No Status: Acute (2) Acute renal failure syndrome Current Visit: No Status: Acute (3) Bronchitis Onset Date: 07/15/15 Current Visit: No Status: Acute (4) CKD (chronic kidney disease), stage III Onset Date: 07/15/15 Current Visit: No Status: Acute Qualifiers: Chronic kidney disease stage 3 subtype: stage 3a (GFR 45-59) Qualified Code(s): N18.31 - Chronic kidney disease, stage 3a (5) Diabetes mellitus Current Visit: No Status: Acute (6) Rheumatoid arthritis; right knee pain Current Visit: No Status: Acute (7) Chronic back pain Onset Date: 07/15/15 Current Visit: No Status: Chronic Qualifiers: Back pain location: low back pain Back pain laterality: midline Sciatica presence: without sciatica (8) Depressive disorder Current Visit: No Status: Chronic (9) Diabetes mellitus type II, non insulin dependent Onset Date: 07/15/15 Current Visit: No Status: Chronic (10) Hyperlipidemia Current Visit: No Status: Chronic Qualifiers: Hyperlipidemia type: unspecified Qualified Code(s): E78.5 - Hyperlipidemia, unspecified (11) Hypertension Onset Date: 07/15/15 Current Visit: No Status: Chronic Qualifiers: Hypertension type: essential hypertension Qualified Code(s): I10 - Essential (primary) hypertension (12) Obesity (BMI 30.0-34.9) Current Visit: No Status: Chronic - Plan Continue with plan of care as mentioned below: 1. Continue with IV antibiotics; plan to switch to oral antibiotics 2. Awaiting sputum and blood culture have been negative 3. Repeat chest x-ray; some worsening basilar atelectasis. Incentive spirometer to bedside 4. Continue with strict blood pressure and blood sugar control. Especially in light of the steroids 5. IV steroids for 24 hr and resume rheumatoid medications 6. Continue with nebs as needed 7. O2 per protocol 8. Hep-Lock IV but monitor renal function 9. Patient needs to monitor her caloric intake so she can help with her weight management 10. Monitor magnesium level 11. Physical therapy evaluation; may need placement at a senior living facility for a few weeks to build her strength up 12. GI and DVT prophylaxis Discharge Plan: halfway facility Plan to discharge in: Greater than 2 days - Advance Directives Does patient have a Living Will: No Does patient have a Durable POA for Healthcare: No - Code Status/Comfort Care Code Status Assessed: Yes Code Status: Full Code Critical Care: No
[2021-03-07] MEDS ORDERED: MAGNESIUM HYDROXIDE 8% 30 ML PO ONE (18:00)
[2021-03-07] MEDS: AZITHROMYCIN IV 500 MG in NA CHLORIDE 0.9% 250 ML IVPB SCH (20:46)
[2021-03-07] MEDS: AMITRIPTYLINE 50 MG TAB PO SCH (20:47)
[2021-03-07] MEDS: CEFTRIAXONE 1 GM/NS 50 ML 1 GM/50 ML BAG IV SCH (20:48)
--- NOTE | 2021-03-07 21:52 | P.PN ---
Date of Service: 03/07/21 Vital Signs Temp Pulse Resp BP Pulse Ox 97.5 F 82 18 145/70 H 98 03/07/21 16:44 03/07/21 16:44 03/07/21 16:44 03/07/21 16:44 03/07/21 16:44 Medications Hydrocodone Bitart/Acetaminophen (Hydrocodone/Apap 5/325 Mg Tab) 1 tab PO Q6H PRN PRN Reason: Pain scale 5-7 (Moderate) Last Admin: 03/07/21 20:48 Dose: 1 tab Documented by: Allopurinol (Allopurinol 100 Mg Tab) 200 mg PO DAILY [facility] Last Admin: 03/07/21 09:12 Dose: 200 mg Documented by: Amitriptyline HCl (Amitriptyline 50 Mg Tab) 50 mg PO BEDTIME [facility] Last Admin: 03/07/21 20:47 Dose: 50 mg Documented by: Aspirin (Aspirin 81 Mg Chewable Tablet) 81 mg PO DAILY [facility] Last Admin: 03/07/21 09:12 Dose: 81 mg Documented by: Atorvastatin Calcium (Atorvastatin 40 Mg Tab) 40 mg PO DAILY [facility] Last Admin: 03/07/21 09:12 Dose: 40 mg Documented by: Benzonatate (Benzonatate 100 Mg Cap) 100 mg PO TID PRN PRN Reason: COUGH Last Admin: 03/06/21 02:50 Dose: 100 mg Documented by: Bumetanide (Bumetanide 1 Mg Tablet) 2 mg PO DAILY [facility] Last Admin: 03/07/21 09:13 Dose: 2 mg Documented by: Dextrose (D50w 25 Gm/50 Ml Vial) 12.5 gm IV PRN PRN; Protocol PRN Reason: HYPOGLYCEMIA Diazepam (Diazepam 5 Mg Tablet) 5 mg PO BID PRN PRN Reason: ANXIETY Docusate Sodium (Docusate Na 100 Mg Cap) 100 mg PO BID [facility] Last Admin: 03/07/21 20:46 Dose: 100 mg Documented by: Doxepin HCl (Doxepin Hcl 25 Mg Cap) 50 mg PO DAILY [facility] Last Admin: 03/07/21 09:00 Dose: 50 mg Documented by: Doxepin HCl (Doxepin Hcl 25 Mg Cap) 75 mg PO BEDTIME [facility] Last Admin: 03/07/21 09:38 Dose: 75 mg Documented by: Duloxetine HCl (Duloxetine 30 Mg Cap) 60 mg PO DAILY [facility] Last Admin: 03/07/21 09:13 Dose: 60 mg Documented by: Enoxaparin Sodium (Enoxaparin 40 Mg/0.4 Ml) 40 mg SQ DAILY [facility] Last Admin: 03/07/21 09:12 Dose: 40 mg Documented by: Folic Acid (Folic Acid 1 Mg Tablet) 1 mg PO DAILY [facility] Last Admin: 03/07/21 09:13 Dose: 1 mg Documented by: Glucagon (Glucagon 1 Mg/Vial) 1 mg IM 1X PRN; Protocol PRN Reason: HYPOGLYCEMIA Guaifenesin (Guaifenesin 600 Mg Sa Tab) 600 mg PO BID [facility] Last Admin: 03/07/21 20:47 Dose: 600 mg Documented by: Home Med (Aripiprazole [Aripiprazole]) 2 mg PO DAILY [facility] Last Admin: 03/07/21 09:00 Dose: Not Given Documented by: Home Med (Methotrexate 2.5 Mg Tablets) 5 ea PO EVERY 7TH DAY [facility] Last Admin: 03/06/21 12:44 Dose: 5 ea Documented by: Home Med (Semaglutide [Ozempic]) 0.5 mg SQ EVERY 7TH DAY [facility] Last Admin: 03/06/21 15:03 Dose: 0.5 mg Documented by: Hydrocortisone Sodium Succinate (Hydrocortisone Suc 100 Mg Inj) 50 mg IV Q8H [facility] Last Admin: 03/07/21 17:41 Dose: 50 mg Documented by: Azithromycin 500 mg/ Sodium (Chloride) 250 mls @ 250 mls/hr IVPB Q24H [facility]; Protocol Last Admin: 03/07/21 20:46 Dose: 250 mls Documented by: Ceftriaxone Sodium/Sodium Chloride (Rocephin 1gm/50 Ml Ivpb) 1 gm in 50 mls @ 100 mls/hr IV Q24H [facility]; Protocol Last Admin: 03/07/21 20:48 Dose: 50 mls Documented by: Insulin Human NPH (Nph (Human) 100 Units/Ml Insulin) 15 units SQ BID [facility] Last Admin: 03/07/21 21:06 Dose: 15 units Documented by: Insulin Human Regular (Insulin -Regular Human 50 Unit/0.5 Ml Ml) 0 unit SQ ACHS [facility]; Protocol Last Admin: 03/07/21 20:49 Dose: Not Given Documented by: Lisinopril (Lisinopril 5 Mg Tab) 5 mg PO DAILY [facility] Last Admin: 03/07/21 09:14 Dose: 5 mg Documented by: Magnesium Hydroxide (Magnesium Hydroxide 8% 30 Ml) 30 ml PO BID PRN PRN Reason: CONSTIPATION Multivitamins/Iron (Fe Sulf/Fa/Vit B Comp & C Tab) 1 tab PO DAILY WITH BREAKFAST [facility] Last Admin: 03/07/21 09:12 Dose: 1 tab Documented by: Ondansetron HCl (Ondansetron 4 Mg/2 Ml Vial) 4 mg IV Q6HP PRN PRN Reason: NAUSEA / VOMITING Sodium Chloride (Flush Normal Saline 10 Ml) 10 ml IV BID [facility] Last Admin: 03/07/21 20:47 Dose: 10 ml Documented by: Tramadol HCl (Tramadol Hcl 50 Mg Tab) 50 mg PO TID PRN PRN Reason: Pain scale 2-4 (Mild) Last Admin: 03/06/21 15:08 Dose: 50 mg Documented by: Microbiology Results 03/01/21 18:54 Blood - Blood Aerobic Blood Culture - Final No growth in 5 days. 03/01/21 18:54 Blood - Blood Anaerobic Blood Culture - Final No growth in 5 days. 03/01/21 18:25 Blood - Blood Aerobic Blood Culture - Final No growth in 5 days. 03/01/21 18:25 Blood - Blood Anaerobic Blood Culture - Final No growth in 5 days. 03/01/21 19:50 Clean Catch Urine [place] Count - Final BETWEEN 10,000 & 100,000 CFU/ML 03/01/21 19:50 Clean Catch Urine - Final MIXED KURTIS. Assessment/ Plan: Nephrology Progress Note Persistent constipation. No BM today No dyspnea. No chest pain. No acute events overnight Vitals, medications blood work and imaging reviewed in the chart General: Oriented x3, Cooperative, Mild distress HEENT: Atraumatic Neck: Supple Respiratory: Clear to auscultation bilaterally Cardiovascular: LE Edema 1+, Regular rate/rhythm Gastrointestinal: Non-distended, Tenderness Musculoskeletal: No clubbing, No contractures Integumentary: No rashes, No cyanosis Neurological: Normal speech Laboratory Data (last 24 hrs) 03/01/21 18:25: Lipase 85 03/01/21 17:10: PT 12.3, INR 1.07 03/01/21 17:10: WBC 20.90 H*, Hgb 10.2 L, Hct 30.9 L, Plt Count 349 03/01/21 17:10: Sodium 135 L, Potassium 3.6, BUN 30 H, Creatinine 1.65 H, Glucose 160 H, Magnesium 1.3 L* D, Total Bilirubin 0.4, AST 36, ALT 25, Alkaline Phosphatase 63 Imagings Data: EXAM DESCRIPTION: US - Extrem Venous W Compress Delta - 03/01/2021 8:30 pm CLINICAL HISTORY: PAIN COMPARISON: None. TECHNIQUE: Real-time sonographic evaluation of the bilateral lower extremity common femoral, superficial femoral, popliteal and posterior tibial veins was performed. FINDINGS: Normal compressibility, flow augmentation, phasic flow and spont aneous flow are identified in the left and right lower extremity common femoral, superficial femoral, popliteal and left posterior tibial veins. No intraluminal filling defects seen. Right posterior tibial vein were difficult to compress. DVT is doubtful but not excluded. IMPRESSION: No DVT in the left lower extremity. Right leg also appears to be clear of deep venous thrombosis though posterior tibial vein was more difficult to evaluate. EXAM DESCRIPTION: CT - Stone Protocol - 03/01/2021 7:20 pm CLINICAL HISTORY: ABDOMINAL DISTENTION COMPARISON: Abdomen Pelvis Wo Contrast dated 08/08/2018 TECHNIQUE: Axial [address] imaging of the abdomen and pelvis was performed without IV contrast. No IV contrast was given because of allergy, abnormal renal function, patient refusal or physician request. No oral contrast administered. All CT scans are performed using dose optimization technique as appropriate and may include automated exposure control or mA/KV adjustment according to patient size. FINDINGS: Airspace opacification is present in the medial left lung base not present on prior imaging. There is bronchiectasis in this region that was present on prior imaging. No pneumothorax or pleural effusion. Small hiatal hernia is present. No liver abnormality seen. Gallbladder is absent. No pancreatic abnormality seen peer biliary tree is normal size. Spleen is surgically absent. No hydronephrosis or suspicious renal mass. Left kidney is smaller than the right. No perinephric stranding. No significant adrenal finding. Isodense renal masses and pyelonephritis cannot be excluded in the absence of IV contrast. Well filled urinary bladder shows no wall thickening or mass. No urinary bladder calculi. Calcified uterine fibroid is seen. No primary ovarian or uterine process seen. No dilated bowel loops or bowel wall thickening. No appendicitis or other acute GI process identifiable. No free air, free fluid or inflammatory stranding. No hernia, mass or bulky lymphadenopathy. No suspicious bony findings. IMPRESSION: Patchy airspace opacification medial left lung base suspicious for early pneumonia. Correlation is needed with any clinical or laboratory findings. Abdomen and pelvis show no acute findings. Above detailed findings are stable from 2019. Full assessment is limited is the absence of IV contrast. EXAM DESCRIPTION: RAD - Chest Single View - 03/01/2021 6:40 pm CLINICAL HISTORY: SOB COMPARISON: August 16 TECHNIQUE: AP portable chest image was obtained 03/01/2021 6:40 pm . FINDINGS: Technical artifacts overlie the lower chest and there is additional respiratory motion artifact. Left subclavian pacemaker is in place. Minimal medial left base opacification is present. No significant failure or volume overload. Heart and vasculature are normal. No measurable pleural effusion and no pneumothorax. No acute bony abnormality seen. No acute aortic findings suspected. IMPRESSION: Minimal medial left base opacification. Early pneumonia cannot be excluded. Conclusions/Impression: RAQUEL likely due to hypovolemia, improved CKD III -No NSAIDs Hypomagnesemia -Give IV Mag prn HTN -Continue Lisinopril and titrate as needed LE Edema -Continue Bumex DM II with CKD -RISS Mild malnutrition -Encourage nutrition Anemia in chronic illness -Monitor H&H Gout -Continue Allopurinol Lobar PNA -Continue Zithromax & Rocephin -Continue Mucinex BID Slow transit constipation -Continue Colace BID -Give MoM X1
[2021-03-08] MEDS: HYDROCORTISONE SUC 100 MG INJ IV SCH ×2 (02:07→08:36)
[2021-03-08 05:36] LABS: Absolute Lymphocytes (CBC) 2.6 K/uL (0.7-4.9); Basophils % 0.9 % (0-1.3); Hematocrit 26.6 % (36.0-45.0); Lymphocytes % 16.2 % (15.3-44.8); MPV 7.1 fL (7.6-11.3); RBC Red Blood Cell Count 2.59 M/uL (3.86-4.86)
[2021-03-08 06:01] LABS: Albumin 2.8 g/dL (3.4-5.0); Bilirubin Total 0.2 mg/dL (0.2-1.0); Phosphorus 3.8 mg/dL (2.5-4.9); Potassium 4.3 mmol/L (3.5-5.1); Protein, Total 6.9 g/dL (6.4-8.2)
[2021-03-08] MEDS: INSULIN -REGULAR HUMAN 50 UNIT/0.5 ML ML SQ SCH ×4 (07:30→21:00)
[2021-03-08] MEDS: ENOXAPARIN 40 MG/0.4 ML SQ SCH (08:36)
[2021-03-08] MEDS: allopurinoL 100 MG TAB PO SCH (08:37)
[2021-03-08] MEDS: ATORVASTATIN 40 MG TAB PO SCH (08:37)
[2021-03-08] MEDS: FE SULF/FA/VIT B COMP & C TAB PO SCH (08:37)
[2021-03-08] MEDS: DOCUSATE NA 100 MG CAP PO SCH ×2 (08:37→20:55)
[2021-03-08] MEDS: BUMETANIDE 1 MG TABLET PO SCH (08:37)
[2021-03-08] MEDS: ASPIRIN 81 MG CHEWABLE TABLET PO SCH (08:37)
[2021-03-08] MEDS: FOLIC ACID 1 MG TABLET PO SCH (08:37)
[2021-03-08] MEDS: DULOXETINE 30 MG CAP PO SCH (08:38)
[2021-03-08] MEDS: lisinopriL 5 MG TAB PO SCH (08:38)
[2021-03-08] MEDS: DOXEPIN HCL 25 MG CAP PO SCH ×2 (08:38→21:00)
[2021-03-08] MEDS: GUAIFENESIN 600 MG SA TAB PO SCH ×2 (08:39→20:56)
[2021-03-08] MEDS: NPH (HUMAN) 100 UNITS/ML INSULIN SQ SCH ×2 (08:52→20:53)
[2021-03-08 08:58] LABS: Anisocytosis SLIGHT; Blood Morphology Comment NOTED (NOT SEEN); Macrocytosis SLIGHT; Platelet Estimate INCR; Platelets, Giant PRESENT; White Blood Cell Scan OK (OK)
[2021-03-08] MEDS: MORPHINE 2 MG/ML SYR IV PRN (13:19)
--- NOTE | 2021-03-08 17:43 | RAD REPORT ---
EXAM DESCRIPTION: RAD - Knee Right 3 View - 03/08/2021 11:51 am CLINICAL HISTORY: s/p fall COMPARISON: Knee Right 3 View dated 01/30/2021; Knee Right 3 View dated 05/14/2020 FINDINGS: No acute fracture. No malalignment. Moderate lateral compartment narrowing. Mild patellofe moral compartment spurring. IMPRESSION: No acute osseous abnormality involving the right knee.
--- NOTE | 2021-03-08 17:44 | RAD REPORT ---
EXAM DESCRIPTION: RAD - Knee Left 3 View - 03/08/2021 11:51 am CLINICAL HISTORY: s/p fall COMPARISON: Knee Left 3 View dated 09/30/2015; Knee Left 3 View dated 09/30/2015 FINDINGS: No acute fracture. No malalignment. No significant focal degenerative changes. IMPRESSION: No acute osseous abnormality involving the left knee.
[2021-03-08] MEDS: AZITHROMYCIN IV 500 MG in NA CHLORIDE 0.9% 250 ML IVPB SCH (20:51)
[2021-03-08] MEDS: CEFTRIAXONE 1 GM/NS 50 ML 1 GM/50 ML BAG IV SCH (20:52)
[2021-03-08] MEDS: predniSONE 20 MG TAB PO SCH (20:55)
[2021-03-08] MEDS: AMITRIPTYLINE 50 MG TAB PO SCH (20:57)
--- NOTE | 2021-03-08 21:05 | PN ---
Date of Progress Note: 03/08/2021 Subjective: The patient was seen and examined at bedside. She is doing okay at this time. She is c rying because she has not gotten the aripiprazole. Objective: Vital signs: Have been reviewed and are stable. General: She appears in no acute distress. Lungs: Clear. Abdomen: Soft. Extremities: Without any evidence of edema. Laboratory Data: Has been reviewed in detail. She continues to have some leukocytosis of 16,000, st able hemoglobin and hematocrit with chronic anemia and anemia of chronic disease. Impression: 1.The patient had a recent fall. The patient has had a knee x-ray done, the results of which are pe nding at this time. 2.Acute bronchitis with pneumonia. Continue current medications with antibiotics and followup. 3.[id number] renal insufficiency with cardiorenal syndrome, currently stable. 4.Depression with psychosis. Continue aripiprazole and other antipsychotics. Plan: The patient's renal function is overall stable. Continue all medications and plan of care. F ollow up on labs closely and avoid nephrotoxins and hypotension. VV/MODL Voice ID: [id number] Report ID: [id number]
[2021-03-08] MEDS: HYDROCODONE/APAP 10/325 TAB PO PRN (21:46)
[2021-03-09] MEDS: INSULIN -REGULAR HUMAN 50 UNIT/0.5 ML ML SQ SCH ×5 (07:30→23:27)
[2021-03-09] MEDS: BUMETANIDE 1 MG TABLET PO SCH (08:32)
[2021-03-09] MEDS: HYDROCODONE/APAP 10/325 TAB PO PRN (08:32)
[2021-03-09] MEDS: lisinopriL 5 MG TAB PO SCH (08:32)
[2021-03-09] MEDS: ATORVASTATIN 40 MG TAB PO SCH (08:33)
[2021-03-09] MEDS: DOCUSATE NA 100 MG CAP PO SCH ×2 (08:33→22:02)
[2021-03-09] MEDS: FOLIC ACID 1 MG TABLET PO SCH (08:33)
[2021-03-09] MEDS: GUAIFENESIN 600 MG SA TAB PO SCH ×2 (08:33→22:01)
[2021-03-09] MEDS: ASPIRIN 81 MG CHEWABLE TABLET PO SCH (08:33)
[2021-03-09] MEDS: FE SULF/FA/VIT B COMP & C TAB PO SCH (08:33)
[2021-03-09] MEDS: DULOXETINE 30 MG CAP PO SCH (08:34)
[2021-03-09] MEDS: predniSONE 20 MG TAB PO SCH ×2 (08:34→22:02)
[2021-03-09] MEDS: allopurinoL 100 MG TAB PO SCH (09:03)
[2021-03-09] MEDS: ENOXAPARIN 40 MG/0.4 ML SQ SCH (09:04)
[2021-03-09] MEDS: DOXEPIN HCL 25 MG CAP PO SCH ×2 (09:04→22:02)
[2021-03-09] MEDS: NPH (HUMAN) 100 UNITS/ML INSULIN SQ SCH ×2 (09:04→23:27)
--- NOTE | 2021-03-09 11:30 | P.PN ---
Date of Service: 03/08/21 Subjective Patient fell today. Patient is having pain in her right knee. X-rays have been unremarkable. Review of Systems 10-point ROS is otherwise unremarkable Physical Examination - Vital Signs Reviewed - Physical Exam General: Alert, In no apparent distress, Oriented x3 HEENT: Atraumatic, PERRLA, EOMI Neck: Supple, JVD not distended Respiratory: Diminished Cardiovascular: Regular rate/rhythm, Normal S1 S2, No murmurs Gastrointestinal: Normal bowel sounds, Soft and benign, Non-distended, No tenderness Musculoskeletal: No clubbing, No swelling, Tenderness in the right knee. Some swelling Neurological: Sensation intact, Cranial nerves 3-12 intact Assessment & Plan - Problems (Diagnosis) (1) Pneumonia Onset Date: 07/29/15 Current Visit: No Status: Acute (2) Acute renal failure syndrome Current Visit: No Status: Acute (3) Bronchitis Onset Date: 07/15/15 Current Visit: No Status: Acute (4) CKD (chronic kidney disease), stage III Onset Date: 07/15/15 Current Visit: No Status: Acute Qualifiers: Chronic kidney disease stage 3 subtype: stage 3a (GFR 45-59) Qualified Code(s): N18.31 - Chronic kidney disease, stage 3a (5) Diabetes mellitus Current Visit: No Status: Acute (6) Rheumatoid arthritis; right knee pain Current Visit: No Status: Acute (7) Chronic back pain Onset Date: 07/15/15 Current Visit: No Status: Chronic Qualifiers: Back pain location: low back pain Back pain laterality: midline Sciatica presence: without sciatica (8) Depressive disorder Current Visit: No Status: Chronic (9) Diabetes mellitus type II, non insulin dependent Onset Date: 07/15/15 Current Visit: No Status: Chronic (10) Hyperlipidemia Current Visit: No Status: Chronic Qualifiers: Hyperlipidemia type: unspecified Qualified Code(s): E78.5 - Hyperlipidemia, unspecified (11) Hypertension Onset Date: 07/15/15 Current Visit: No Status: Chronic Qualifiers: Hypertension type: essential hypertension Qualified Code(s): I10 - Essential (primary) hypertension (12) Obesity (BMI 30.0-34.9) Current Visit: No Status: Chronic - Plan Continue with plan of care as mentioned below: 1. Continue antibiotics. 2. Cultures of the negative 3. Knee x-ray unremarkable 4. Continue with strict blood pressure and blood sugar control. Especially in light of the steroids 5. Change to oral steroids 7. O2 per protocol 8. Hep-Lock IV 9. Patient needs to monitor her caloric intake so she can help with her weight management 10. Physical therapy evaluation; may need placement at a detention facility for a few weeks to build her strength up 11. GI and DVT prophylaxis
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
--- NOTE | 2021-03-09 11:36 | P.PN ---
Date of Service: 03/09/21 Subjective Patient is clinically doing well. Patient denies any new complaints. Respiratory status is improved. Still having bilateral knee pain greater on the right side. Still with weakness. Awaiting acceptance at [facility] Review of Systems 10-point ROS is otherwise unremarkable Physical Examination - Vital Signs Reviewed - Physical Exam General: Alert, In no apparent distress, Oriented x3 Respiratory: Diminished Cardiovascular: Regular rate/rhythm, Normal S1 S2, No murmurs Gastrointestinal: Normal bowel sounds, Soft and benign, Non-distended, No tenderness Musculoskeletal: No clubbing, No swelling, Tenderness in the right knee. Some swelling Neurological: Sensation intact, Cranial nerves 3-12 intact; generalized weakness Assessment & Plan - Problems (Diagnosis) (1) Pneumonia Onset Date: 07/29/15 Current Visit: No Status: Acute (2) Acute renal failure syndrome Current Visit: No Status: Acute (3) Bilateral knee pain Onset Date: 02/14/2021 Current Visit: No Status: Acute (4) CKD (chronic kidney disease), stage III Onset Date: 07/15/15 Current Visit: No Status: Acute Qualifiers: Chronic kidney disease stage 3 subtype: stage 3a (GFR 45-59) Qualified Code(s): N18.31 - Chronic kidney disease, stage 3a (5) Diabetes mellitus Current Visit: No Status: Acute (6) Rheumatoid arthritis Current Visit: No Status: Chronic (7) Chronic back pain Onset Date: 07/15/15 Current Visit: No Status: Chronic Qualifiers: Back pain location: low back pain Back pain laterality: midline Sciatica presence: without sciatica (8) Depressive disorder Current Visit: No Status: Chronic (9) Diabetes mellitus type II, non insulin dependent Onset Date: 07/15/15 Current Visit: No Status: Chronic (10) Hyperlipidemia Current Visit: No Status: Chronic Qualifiers: Hyperlipidemia type: unspecified Qualified Code(s): E78.5 - Hyperlipidemia, unspecified (11) Hypertension Onset Date: 07/15/15 Current Visit: No Status: Chronic Qualifiers: Hypertension type: essential hypertension Qualified Code(s): I10 - Essential (primary) hypertension (12) Obesity (BMI 30.0-34.9) Current Visit: No Status: Chronic - Plan Continue with plan of care as mentioned below: 1. Continue antibiotic therapy 2. Cultures are negative 3. X-ray with worsening atelectasis; repeat in the morning 4. Strict blood pressure and blood sugar control 5. Continue with current medical therapy 6. Continue with nebs as needed 7. O2 per protocol 8. Hep-Lock IV 9. Continue monitoring caloric intake 10. Continue with physical therapy 11. Continue anti-inflammatory and pain control 12. GI and DVT prophylaxis
[2021-03-09] MEDS: MORPHINE 2 MG/ML SYR IV PRN (13:43)
[2021-03-09] MEDS: AMITRIPTYLINE 50 MG TAB PO SCH (22:02)
[2021-03-09] MEDS: BENZONATATE 100 MG CAP PO PRN (22:02)
[2021-03-09] MEDS ORDERED: INSULIN -REGULAR HUMAN 50 UNIT/0.5 ML ML SQ SCH (22:41)
[2021-03-10 06:46] LABS: Absolute Lymphocytes (CBC) 3.4 K/uL (0.7-4.9); Hematocrit 26.2 % (36.0-45.0); MPV 7.1 fL (7.6-11.3); RBC Red Blood Cell Count 2.57 M/uL (3.86-4.86)
[2021-03-10 07:06] LABS: Albumin 2.7 g/dL (3.4-5.0); Bilirubin Total 0.2 mg/dL (0.2-1.0); Magnesium 2.1 mg/dL (1.8-2.4); Potassium 3.7 mmol/L (3.5-5.1); Protein, Total 6.6 g/dL (6.4-8.2)
[2021-03-10] MEDS: MORPHINE 2 MG/ML SYR IV PRN ×2 (07:43→18:00)
[2021-03-10 08:00] LABS: Blood Morphology Comment NOT SEEN (NOT SEEN); Platelet Estimate INCR; Platelets, Giant PRESENT; White Blood Cell Scan OK (OK)
[2021-03-10] MEDS ORDERED: POTASSIUM CL SA 10 MEQ TAB PO ONE (09:00)
[2021-03-10] MEDS ORDERED: predniSONE 20 MG TAB PO SCH (09:00)
--- NOTE | 2021-03-10 09:30 | RAD REPORT ---
EXAM DESCRIPTION: RAD - Chest Single View - 03/10/2021 6:05 am CLINICAL HISTORY: pneumonia Chest pain. COMPARISON: Chest Single View dated 03/06/2021; Chest Single View dated 03/01/2021; Chest Single Vie w dated 09/06/2020; Chest Single View dated 03/27/2020 FINDINGS: Portable technique limits examination quality. Mild interstitial prominence bilaterally is mildly improved since comparative study. The heart is upp er limit normal in size. Multilead pacer device is noted. Skin sarmad are seen. IMPRESSION: Mild improvement lung aeration since comparative study.
[2021-03-10] MEDS: DOCUSATE NA 100 MG CAP PO SCH ×2 (10:05→20:01)
[2021-03-10] MEDS: allopurinoL 100 MG TAB PO SCH (10:05)
[2021-03-10] MEDS: FOLIC ACID 1 MG TABLET PO SCH (10:06)
[2021-03-10] MEDS: DOXEPIN HCL 25 MG CAP PO SCH ×2 (10:06→20:01)
[2021-03-10] MEDS: FE SULF/FA/VIT B COMP & C TAB PO SCH (10:06)
[2021-03-10] MEDS: ASPIRIN 81 MG CHEWABLE TABLET PO SCH (10:06)
[2021-03-10] MEDS: BUMETANIDE 1 MG TABLET PO SCH (10:06)
[2021-03-10] MEDS: DULOXETINE 30 MG CAP PO SCH (10:07)
[2021-03-10] MEDS: ATORVASTATIN 40 MG TAB PO SCH (10:07)
[2021-03-10] MEDS: lisinopriL 5 MG TAB PO SCH (10:07)
[2021-03-10] MEDS: GUAIFENESIN 600 MG SA TAB PO SCH ×2 (10:07→20:02)
[2021-03-10] MEDS: NPH (HUMAN) 100 UNITS/ML INSULIN SQ SCH ×2 (10:08→20:22)
[2021-03-10] MEDS: ENOXAPARIN 40 MG/0.4 ML SQ SCH (10:08)
[2021-03-10] MEDS: HYDROCODONE/APAP 10/325 TAB PO PRN ×2 (10:22→20:22)
[2021-03-10] MEDS: INSULIN -REGULAR HUMAN 50 UNIT/0.5 ML ML SQ SCH ×3 (13:15→20:23)
--- NOTE | 2021-03-10 15:14 | P.PN ---
Subjective Date of Service: 03/10/21 Primary Care Provider: Dr. Clements Chief Complaint: Pneumonia, NSTEMI Subjective: Improving, Doing well Physical Examination - Vital Signs Temperature: 97.8 F Blood Pressure: 123/58 Pulse: 83 Respirations: 16 Pulse Ox (%): 97 - Studies Medications List Reviewed: Yes Assessment & Plan Discharge Plan: Other (detention facility) Plan to discharge in: 48 Hours Physician Review Additional Text: COVID: negative CXR: COMPARISON: September 06 TECHNIQUE: AP portable chest image was obtained 03/01/2021 6:40 pm . FINDINGS: Technical artifacts overlie the lower chest and there is additional respiratory motion artifact. Left subclavian pacemaker is in place. Minimal medial left base opacification is present. No significant failure or volume overload. Heart and vasculature are normal. No measurable pleural effusion and no pneumothorax. No acute bony abnormality seen. No acute aortic findings suspected. IMPRESSION: Minimal medial left base opacification. Early pneumonia cannot be excluded. CT AB: COMPARISON: Abdomen Pelvis Wo Contrast dated 08/08/2018 TECHNIQUE: Axial [address] imaging of the abdomen and pelvis was performed without IV contrast. No IV contrast was given because of allergy, abnormal renal function, patient refusal or physician request. No oral contrast administered. All CT scans are performed using dose optimization technique as appropriate and may include automated exposure control or mA/KV adjustment according to patient size. FINDINGS: Airspace opacification is present in the medial left lung base not present on prior imaging. There is bronchiectasis in this region that was present on prior imaging. No pneumothorax or pleural effusion. Small hiatal hernia is present. No liver abnormality seen. Gallbladder is absent. No pancreatic abnormality seen peer biliary tree is normal size. Spleen is surgically absent. No hydronephrosis or suspicious renal mass. Left kidney is smaller than the right. No perinephric stranding. No significant adrenal finding. Isodense renal masses and pyelonephritis cannot be excluded in the absence of IV contrast. Well filled urinary bladder shows no wall thickening or mass. No urinary bladder calculi. Calcified uterine fibroid is seen. No primary ovarian or uterine process seen. No dilated bowel loops or bowel wall thickening. No appendicitis or other acute GI process identifiable. No free air, free fluid or inflammatory stranding. No hernia, mass or bulky lymphadenopathy. No suspicious bony findings. IMPRESSION: Patchy airspace opacification medial left lung base suspicious for early pneumonia. Correlation is needed with any clinical or laboratory findings. Abdomen and pelvis show no acute findings. Above detailed findings are stable from 2019. Full assessment is limited is the absence of IV contrast. Venous doppler: COMPARISON: None. TECHNIQUE: Real-time sonographic evaluation of the bilateral lower extremity common femoral, superficial femoral, popliteal and posterior tibial veins was performed. FINDINGS: Normal compressibility, flow augmentation, phasic flow and spontaneous flow are identified in the left and right lower extremity common femoral, superficial femoral, popliteal and left posterior tibial veins. No intraluminal filling defects seen. Right posterior tibial vein were difficult to compress. DVT is doubtful but not excluded. IMPRESSION: No DVT in the left lower extremity. Right leg also appears to be clear of deep venous thrombosis though posterior tibial vein was more difficult to evaluate. ECHO: MEASUREMENTS (cm) DIASTOLIC (NORMALS) SYSTOLIC (NORMALS) IVSd 0.8 (0.6-1.2) LA Diam 2.8 (1.9-4.0) LVEF 55-60% LVIDd 4.5 (3.5-5.7) LVIDs 2.6 (2.0-3.5) %FS 42% LVPWd 1.1 (0.6-1.2) Ao Diam 2.5 (2.0-3.7) 2 DIMENSIONAL ASSESSMENT: RIGHT ATRIUM: NORMAL LEFT ATRIUM: NORMAL RIGHT VENTRICLE: NORMAL LEFT VENTRICLE: NORMAL TRICUSPID VALVE: NORMAL MITRAL VALVE: MILD MITRAL REGURGITATION PULMONIC VALVE: MODERATE TRICUSPID REGURGITATION AORTIC VALVE: NORMAL PERICARDIAL EFFUSION: NONE AORTIC ROOT: NORMAL LEFT VENTRICULAR WALL MOTION: NORMAL DOPPLER/COLOR FLOW: SEE BELOW COMMENTS: NORMAL LEFT VENTRICULAR EJECTION FRACTION 55-60%. NORMAL WALL MOTION. MODERATE TRICUSPID REGURGITATION. MILD MITRAL REGURGITATION. Follow up CXR 03/09/2021: COMPARISON: Chest Single View dated 03/06/2021; Chest Single View dated 03/01/2021; Chest Single View dated 09/06/2020; Chest Single View dated 03/27/2020 FINDINGS: Portable technique limits examination quality. Mild interstitial prominence bilaterally is mildly improved since comparative study. The heart is upper limit normal in size. Multilead pacer device is noted. Skin sarmad are seen. IMPRESSION: Mild improvement lung aeration since comparative study. Physical Exam: General: Alert, In no apparent distress, Oriented x3 HEENT: Neck supple Respiratory: Better air movement bilateral Cardiovascular: Regular rate/rhythm, Normal S1 S2 Capillary refill: <2 Seconds Gastrointestinal: Normal bowel sounds, No tenderness Musculoskeletal: No tenderness Integumentary: No rashes Neurological: Normal speech, Normal strength at 5/5 x4 extr, Normal tone, Normal affect Lymphatics: No axilla or inguinal lymphadenopathy Impression: Leukocytosis secondary to left-sided pneumonia Elevated troponin likely demand ischemia from acute on chronic diastolic congestive heart failure Acute on chronic renal disease stage III Diabetes mellitus type II Hypertension Hyperlipidemia Hypomagnesemia Generalized weakness/repeated falls Chronic right knee pain Depression with anxiety Chronic pain Anemia chronic disease with iron deficiency Plan: Leukocytosis secondary to left-sided pneumonia: Patient has completed treatment of pneumonia. Wean off prednisone. Chest x-ray shows improvement. Patient on room air. Patient awaiting approval for skilled placement. Elevated troponin likely demand ischemia from acute on chronic diastolic congestive heart failure: Patient continues on Bumex 2 mg daily. Continue 1500 cc/day fluid restriction. Acute on chronic renal disease stage III: Overall stable. Continue allopurinol Diabetes mellitus type II: A1c 7.0. Continue sliding scale. Accu-Cheks in place. Continue Lantus. Will monitor and adjust appropriately. Hypertension: Continue on low-dose lisinopril 5 mg daily. Hyperlipidemia: Continue medicationLipitor Hypomagnesemia: Protocol in place. Generalized weakness/repeated falls: Continue with physical therapy. Recommend skilled placement. Awaiting approval. Depression with anxiety: Continue with Cymbalta. Patient also takes doxepin and Elavil. Chronic pain: Continue to work with physical therapy. Recommend skilled placement due to her chronic pain. Patient is seen by Dr. Stanley for right knee pain. Will need to follow-up with Dr. Mijares as an outpatient. Anemia of chronic disease with iron deficiency: Continue with iron supplementation. DVT PPX: Lovenox Code status: Full Discharge Plan: detention facility Time Spent Managing Pts Care (In Minutes): 55
[2021-03-10] MEDS: AMITRIPTYLINE 50 MG TAB PO SCH (20:01)
[2021-03-11 01:01] VITALS: BMI 36.3
--- NOTE | 2021-03-11 06:30 | P.PN ---
Subjective Date of Service: 03/11/21 Primary Care Provider: Dr. Clements Chief Complaint: Pneumonia, NSTEMI Subjective: Other (Patient still reports some unsteadiness with right knee pain. Patient lives alone at home) Physical Examination - Vital Signs Temperature: 97.6 F Blood Pressure: 143/68 Pulse: 72 Respirations: 18 Pulse Ox (%): 98 - Studies Medications List Reviewed: Yes Assessment & Plan Discharge Plan: Other (custodial facility) Plan to discharge in: 24 Hours Physician Review Additional Text: COVID: negative CXR: COMPARISON: September 06 TECHNIQUE: AP portable chest image was obtained 03/01/2021 6:40 pm . FINDINGS: Technical artifacts overlie the lower chest and there is additional respiratory motion artifact. Left subclavian pacemaker is in place. Minimal medial left base opacification is present. No significant failure or volume overload. Heart and vasculature are normal. No measurable pleural effusion and no pneumothorax. No acute bony abnormality seen. No acute aortic findings suspected. IMPRESSION: Minimal medial left base opacification. Early pneumonia cannot be excluded. CT AB: COMPARISON: Abdomen Pelvis Wo Contrast dated 08/08/2018 TECHNIQUE: Axial [address] imaging of the abdomen and pelvis was performed without IV contrast. No IV contrast was given because of allergy, abnormal renal function, patient refusal or physician request. No oral contrast administered. All CT scans are performed using dose optimization technique as appropriate and may include automated exposure control or mA/KV adjustment according to patient size. FINDINGS: Airspace opacification is present in the medial left lung base not present on prior imaging. There is bronchiectasis in this region that was present on prior imaging. No pneumothorax or pleural effusion. Small hiatal hernia is present. No liver abnormality seen. Gallbladder is absent. No pancreatic abnormality seen peer biliary tree is normal size. Spleen is surgically absent. No hydronephrosis or suspicious renal mass. Left kidney is smaller than the right. No perinephric stranding. No significant adrenal finding. Isodense renal masses and pyelonephritis cannot be excluded in the absence of IV contrast. Well filled urinary bladder shows no wall thickening or mass. No urinary bladder calculi. Calcified uterine fibroid is seen. No primary ovarian or uterine process seen. No dilated bowel loops or bowel wall thickening. No appendicitis or other acute GI process identifiable. No free air, free fluid or inflammatory stranding. No hernia, mass or bulky lymphadenopathy. No suspicious bony findings. IMPRESSION: Patchy airspace opacification medial left lung base suspicious for early pneumonia. Correlation is needed with any clinical or laboratory findings. Abdomen and pelvis show no acute findings. Above detailed findings are stable from 2019. Full assessment is limited is the absence of IV contrast. Venous doppler: COMPARISON: None. TECHNIQUE: Real-time sonographic evaluation of the bilateral lower extremity common femoral, superficial femoral, popliteal and posterior tibial veins was performed. FINDINGS: Normal compressibility, flow augmentation, phasic flow and spontaneous flow are identified in the left and right lower extremity common femoral, superficial femoral, popliteal and left posterior tibial veins. No intraluminal filling defects seen. Right posterior tibial vein were difficult to compress. DVT is doubtful but not excluded. IMPRESSION: No DVT in the left lower extremity. Right leg also appears to be clear of deep venous thrombosis though posterior tibial vein was more difficult to evaluate. ECHO: MEASUREMENTS (cm) DIASTOLIC (NORMALS) SYSTOLIC (NORMALS) IVSd 0.8 (0.6-1.2) LA Diam 2.8 (1.9-4.0) LVEF 55-60% LVIDd 4.5 (3.5-5.7) LVIDs 2.6 (2.0-3.5) %FS 42% LVPWd 1.1 (0.6-1.2) Ao Diam 2.5 (2.0-3.7) 2 DIMENSIONAL ASSESSMENT: RIGHT ATRIUM: NORMAL LEFT ATRIUM: NORMAL RIGHT VENTRICLE: NORMAL LEFT VENTRICLE: NORMAL TRICUSPID VALVE: NORMAL MITRAL VALVE: MILD MITRAL REGURGITATION PULMONIC VALVE: MODERATE TRICUSPID REGURGITATION AORTIC VALVE: NORMAL PERICARDIAL EFFUSION: NONE AORTIC ROOT: NORMAL LEFT VENTRICULAR WALL MOTION: NORMAL DOPPLER/COLOR FLOW: SEE BELOW COMMENTS: NORMAL LEFT VENTRICULAR EJECTION FRACTION 55-60%. NORMAL WALL MOTION. MODERATE TRICUSPID REGURGITATION. MILD MITRAL REGURGITATION. Follow up CXR 03/09/2021: COMPARISON: Chest Single View dated 03/06/2021; Chest Single View dated 03/01/2021; Chest Single View dated 09/06/2020; Chest Single View dated 03/27/2020 FINDINGS: Portable technique limits examination quality. Mild interstitial prominence bilaterally is mildly improved since comparative study. The heart is upper limit normal in size. Multilead pacer device is noted. Skin sarmad are seen. IMPRESSION: Mild improvement lung aeration since comparative study. Physical Exam: General: Alert, In no apparent distress, Oriented x3 HEENT: Neck supple Respiratory: Better air movement bilateral Cardiovascular: Regular rate/rhythm, Normal S1 S2 Capillary refill: <2 Seconds Gastrointestinal: Normal bowel sounds, No tenderness Musculoskeletal: Some pain to the right knee. Mild swelling noted. Integumentary: No rashes Neurological: Normal speech, Normal strength at 5/5 x4 extr, Normal tone, Normal affect Lymphatics: No axilla or inguinal lymphadenopathy Impression: Leukocytosis secondary to left-sided pneumonia Elevated troponin likely demand ischemia from acute on chronic diastolic congestive heart failure Acute on chronic renal disease stage III Diabetes mellitus type II Hypertension Hyperlipidemia Hypomagnesemia Generalized weakness/repeated falls with chronic right knee pain Chronic right knee pain Depression with anxiety Chronic pain Anemia chronic disease with iron deficiency Plan: Leukocytosis secondary to left-sided pneumonia: Patient has completed treatment of pneumonia. Continue to wean off prednisone. Chest x-ray shows improvement. Patient on room air. Patient lives alone at home. Patient desires to go to skilled facility to continue rehabilitation. Patient still reports some unsteadiness with chronic right knee pain. Patient would highly benefit with skilled placement. Patient awaiting approval for skilled placement. Elevated troponin likely demand ischemia from acute on chronic diastolic congestive heart failure: Patient continues on Bumex 2 mg daily. Continue 1500 cc/day fluid restriction. Acute on chronic renal disease stage III: Overall stable. Continue allopurinol Diabetes mellitus type II: A1c 7.0. Continue sliding scale. Accu-Cheks in place. Continue Lantus. Will monitor and adjust appropriately. Hypertension: Continue on low-dose lisinopril 5 mg daily. Hyperlipidemia: Continue medicationLipitor Hypomagnesemia: Protocol in place. Generalized weakness/repeated falls with chronic right knee pain: Continue with physical therapy. Patient still reports some unsteadiness with walking. Patient was denied to go to skilled facility. Will wait to do [id number]. Patient lives alone. Patient with multiple falls in the past. Patient would benefit highly to go to skilled facility before going home. Increased fall risk noted. Will discuss with medical assistant secretary of insurance to help try to approve for skilled placement. Depression with anxiety: Continue with Cymbalta. Patient also takes doxepin and Elavil. Chronic pain: Continue to work with physical therapy. Continue to recommend skilled placement before going home. Await to do [id number]. Patient is seen by Dr. Stanley for right knee pain. Will need to follow-up with Dr. Stanleyorthopecandelaria as an outpatient. Anemia of chronic disease with iron deficiency: Continue with iron supplementation. DVT PPX: Lovenox Code status: Full code Discharge Plan: Patient lives at home. Continue to recommend skilled placement. Awaiting to do [id number] to get approval for skilled placement. Time Spent Managing Pts Care (In Minutes): 55
[2021-03-11] MEDS: MORPHINE 2 MG/ML SYR IV PRN ×2 (07:11→21:03)
[2021-03-11] MEDS: INSULIN -REGULAR HUMAN 50 UNIT/0.5 ML ML SQ SCH ×4 (07:30→21:05)
[2021-03-11] MEDS: ASPIRIN 81 MG CHEWABLE TABLET PO SCH (09:23)
[2021-03-11] MEDS: allopurinoL 100 MG TAB PO SCH (09:23)
[2021-03-11] MEDS: DOCUSATE NA 100 MG CAP PO SCH ×2 (09:24→21:04)
[2021-03-11] MEDS: DOXEPIN HCL 25 MG CAP PO SCH ×2 (09:24→21:37)
[2021-03-11] MEDS: FOLIC ACID 1 MG TABLET PO SCH (09:24)
[2021-03-11] MEDS: DULOXETINE 30 MG CAP PO SCH (09:24)
[2021-03-11] MEDS: predniSONE 10 MG TAB PO SCH (09:24)
[2021-03-11] MEDS: FE SULF/FA/VIT B COMP & C TAB PO SCH (09:24)
[2021-03-11] MEDS: BUMETANIDE 1 MG TABLET PO SCH (09:25)
[2021-03-11] MEDS: lisinopriL 5 MG TAB PO SCH (09:25)
[2021-03-11] MEDS: GUAIFENESIN 600 MG SA TAB PO SCH ×2 (09:26→21:04)
[2021-03-11] MEDS: NPH (HUMAN) 100 UNITS/ML INSULIN SQ SCH ×2 (09:26→21:05)
[2021-03-11] MEDS: ENOXAPARIN 40 MG/0.4 ML SQ SCH (09:27)
[2021-03-11] MEDS: ATORVASTATIN 40 MG TAB PO SCH (09:28)
[2021-03-11] MEDS: HYDROCODONE/APAP 10/325 TAB PO PRN ×2 (09:28→16:48)
--- NOTE | 2021-03-11 19:56 | P.PN ---
Date of Service: 03/10/21 Vital Signs Temp Pulse Resp BP Pulse Ox 97.0 F 79 16 118/57 L 100 03/11/21 16:00 03/11/21 16:00 03/11/21 16:00 03/11/21 16:00 03/11/21 16:00 Medications Hydrocodone Bitart/Acetaminophen (Hydrocodone/Apap 10/325 Tab) 1 tab PO Q4H PRN PRN Reason: Pain scale 5-7 (Moderate) Last Admin: 03/11/21 16:48 Dose: 1 tab Documented by: Allopurinol (Allopurinol 100 Mg Tab) 200 mg PO DAILY [facility] Last Admin: 03/11/21 09:23 Dose: 200 mg Documented by: Amitriptyline HCl (Amitriptyline 50 Mg Tab) 50 mg PO BEDTIME [facility] Last Admin: 03/10/21 20:01 Dose: 50 mg Documented by: Aspirin (Aspirin 81 Mg Chewable Tablet) 81 mg PO DAILY [facility] Last Admin: 03/11/21 09:23 Dose: 81 mg Documented by: Atorvastatin Calcium (Atorvastatin 40 Mg Tab) 40 mg PO DAILY [facility] Last Admin: 03/11/21 09:28 Dose: 40 mg Documented by: Benzonatate (Benzonatate 100 Mg Cap) 100 mg PO TID PRN PRN Reason: COUGH Last Admin: 03/09/21 22:02 Dose: 100 mg Documented by: Bumetanide (Bumetanide 1 Mg Tablet) 2 mg PO DAILY [facility] Last Admin: 03/11/21 09:25 Dose: 2 mg Documented by: Dextrose (D50w 25 Gm/50 Ml Vial) 12.5 gm IV PRN PRN; Protocol PRN Reason: HYPOGLYCEMIA Docusate Sodium (Docusate Na 100 Mg Cap) 100 mg PO BID [facility] Last Admin: 03/11/21 09:24 Dose: 100 mg Documented by: Doxepin HCl (Doxepin Hcl 25 Mg Cap) 50 mg PO DAILY [facility] Last Admin: 03/11/21 09:24 Dose: 50 mg Documented by: Doxepin HCl (Doxepin Hcl 25 Mg Cap) 75 mg PO BEDTIME [facility] Last Admin: 03/10/21 20:01 Dose: 75 mg Documented by: Duloxetine HCl (Duloxetine 30 Mg Cap) 60 mg PO DAILY [facility] Last Admin: 03/11/21 09:24 Dose: 60 mg Documented by: Enoxaparin Sodium (Enoxaparin 40 Mg/0.4 Ml) 40 mg SQ DAILY [facility] Last Admin: 03/11/21 09:27 Dose: 40 mg Documented by: Folic Acid (Folic Acid 1 Mg Tablet) 1 mg PO DAILY [facility] Last Admin: 03/11/21 09:24 Dose: 1 mg Documented by: Glucagon (Glucagon 1 Mg/Vial) 1 mg IM 1X PRN; Protocol PRN Reason: HYPOGLYCEMIA Guaifenesin (Guaifenesin 600 Mg Sa Tab) 600 mg PO BID [facility] Last Admin: 03/11/21 09:26 Dose: 600 mg Documented by: Home Med (Methotrexate 2.5 Mg Tablets) 5 ea PO EVERY 7TH DAY [facility] Last Admin: 03/06/21 12:44 Dose: 5 ea Documented by: Home Med (Semaglutide [Ozempic]) 0.5 mg SQ EVERY 7TH DAY [facility] Last Admin: 03/06/21 15:03 Dose: 0.5 mg Documented by: Home Med (Aripiprazole [Aripiprazole]) 2 mg PO DAILY [facility] Last Admin: 03/11/21 09:25 Dose: 2 mg Documented by: Insulin Human NPH (Nph (Human) 100 Units/Ml Insulin) 15 units SQ BID [facility] Last Admin: 03/11/21 09:26 Dose: 15 units Documented by: Insulin Human Regular (Insulin -Regular Human 50 Unit/0.5 Ml Ml) 0 unit SQ ACHS [facility]; Protocol Last Admin: 03/11/21 16:47 Dose: 10 unit Documented by: Lisinopril (Lisinopril 5 Mg Tab) 5 mg PO DAILY [facility] Last Admin: 03/11/21 09:25 Dose: 5 mg Documented by: Magnesium Hydroxide (Magnesium Hydroxide 8% 30 Ml) 30 ml PO BID PRN PRN Reason: CONSTIPATION Morphine Sulfate (Morphine 2 Mg/Ml Syr) 2 mg IV Q6H PRN PRN Reason: Pain scale 5-7 (Moderate) Last Admin: 03/11/21 07:11 Dose: 2 mg Documented by: Multivitamins/Iron (Fe Sulf/Fa/Vit B Comp & C Tab) 1 tab PO DAILY WITH BREAKFAST [facility] Last Admin: 03/11/21 09:24 Dose: 1 tab Documented by: Ondansetron HCl (Ondansetron 4 Mg/2 Ml Vial) 4 mg IV Q6HP PRN PRN Reason: NAUSEA / VOMITING Prednisone (Prednisone 10 Mg Tab) 10 mg PO DAILY [facility] Last Admin: 03/11/21 09:24 Dose: 10 mg Documented by: Sodium Chloride (Flush Normal Saline 10 Ml) 10 ml IV BID [facility] Last Admin: 03/11/21 09:27 Dose: 10 ml Documented by: Microbiology Results 03/01/21 18:54 Blood - Blood Aerobic Blood Culture - Final No growth in 5 days. 03/01/21 18:54 Blood - Blood Anaerobic Blood Culture - Final No growth in 5 days. 03/01/21 18:25 Blood - Blood Aerobic Blood Culture - Final No growth in 5 days. 03/01/21 18:25 Blood - Blood Anaerobic Blood Culture - Final No growth in 5 days. 03/01/21 19:50 Clean Catch Urine [place] Count - Final BETWEEN 10,000 & 100,000 CFU/ML 03/01/21 19:50 Clean Catch Urine - Final MIXED [place]. Assessment/ Plan: Nephrology Progress Note Persistent knee pain No dyspnea. No chest pain. No acute events overnight Vitals, medications blood work and imaging reviewed in the chart General: Oriented x3, Cooperative, Mild distress HEENT: Atraumatic Neck: Supple Respiratory: Clear to auscultation bilaterally Cardiovascular: LE Edema 1+, Regular rate/rhythm Gastrointestinal: Non-distended, Tenderness Musculoskeletal: No clubbing, No contractures Integumentary: No rashes, No cyanosis Neurological: Normal speech Laboratory Data (last 24 hrs) 03/01/21 18:25: Lipase 85 03/01/21 17:10: PT 12.3, INR 1.07 03/01/21 17:10: WBC 20.90 H*, Hgb 10.2 L, Hct 30.9 L, Plt Count 349 03/01/21 17:10: Sodium 135 L, Potassium 3.6, BUN 30 H, Creatinine 1.65 H, Glucose 160 H, Magnesium 1.3 L* D, Total Bilirubin 0.4, AST 36, ALT 25, Alkaline Phosphatase 63 Imagings Data: EXAM DESCRIPTION: US - Extrem Venous W Compress Delta - 03/01/2021 8:30 pm CLINICAL HISTORY: PAIN COMPARISON: None. TECHNIQUE: Real-time sonographic evaluation of the bilateral lower extremity common femoral, superficial femoral, popliteal and posterior tibial veins was performed. FINDINGS: Normal compressibility, flow augmentation, phasic flow and spontaneous flow are identified in the left and right lower extremity common femoral, superficial femoral, popliteal and left posterior tibial veins. No intraluminal filling defects seen. Right posterior tibial vein were difficult to compress. DVT is doubtful but not excluded. IMPRESSION: No DVT in the left lower extremity. Right leg also appears to be clear of deep venous thrombosis though posterior tibial vein was more difficult to evaluate. EXAM DESCRIPTION: CT - Stone Protocol - 03/01/2021 7:20 pm CLINICAL HISTORY: ABDOMINAL DISTENTION COMPARISON: Abdomen Pelvis Wo Contrast dated 08/08/2018 TECHNIQUE: Axial [address] imaging of the abdomen and pelvis was performed without IV contrast. No IV contrast was given because of allergy, abnormal renal function, patient refusal or physician request. No oral contrast administered. All CT scans are performed using dose optimization technique as appropriate and may include automated exposure control or mA/KV adjustment according to patient size. FINDINGS: Airspace opacification is present in the medial left lung base not present on prior imaging. There is bronchiectasis in this region that was present on prior imaging. No pneumothorax or pleural effusion. Small hiatal hernia is present. No liver abnormality seen. Gallbladder is absent. No pancreatic abnormality seen peer biliary tree is normal size. Spleen is surgically absent. No hydronephrosis or suspicious renal mass. Left kidney is smaller than the right. No perinephric stranding. No significant adrenal finding. Isodense renal masses and pyelonephritis cannot be excluded in the absence of IV contrast. Well filled urinary bladder shows no wall thickening or mass. No urinary bladder calculi. Calcified uterine fibroid is seen. No primary ovarian or uterine process seen. No dilated bowel loops or bowel wall thickening. No appendicitis or other acute GI process identifiable. No free air, free fluid or inflammatory stranding. No hernia, mass or bulky lymphadenopathy. No suspicious bony findings. IMPRESSION: Patchy airspace opacification medial left lung base suspicious for early pneumonia. Correlation is needed with any clinical or laboratory findings. Abdomen and pelvis show no acute findings. Above detailed findings are stable from 2019. Full assessment is limited is the absence of IV contrast. EXAM DESCRIPTION: RAD - Chest Single View - 03/01/2021 6:40 pm CLINICAL HISTORY: SOB COMPARISON: August 16 TECHNIQUE: AP portable chest image was obtained 03/01/2021 6:40 pm . FINDINGS: Technical artifacts overlie the lower chest and there is additional respiratory motion artifact. Left subclavian pacemaker is in place. Minimal medial left base opacification is present. No significant failure or volume overload. Heart and vasculature are normal. No measurable pleural effusion and no pneumothorax. No acute bony abnormality seen. No acute aortic findings suspected. IMPRESSION: Minimal medial left base opacification. Early pneumonia cannot be excluded. Conclusions/Impression: RAQUEL likely due to hypovolemia CKD III -No NSAIDs Hypomagnesemia -Give IV Mag prn HTN -Continue Lisinopril and titrate as needed LE Edema -Continue Bumex DM II with CKD -RISS Mild malnutrition -Encourage nutrition Anemia in chronic illness -Monitor H&H Gout -Continue Allopurinol Lobar PNA -Continue Zithromax & Rocephin -Continue Mucinex BID Slow transit constipation -Continue Colace BID -MoM prn
--- NOTE | 2021-03-11 19:59 | P.PN ---
Date of Service: 03/11/21 Vital Signs Temp Pulse Resp BP Pulse Ox 97.0 F 79 16 118/57 L 100 03/11/21 16:00 03/11/21 16:00 03/11/21 16:00 03/11/21 16:00 03/11/21 16:00 Medications Hydrocodone Bitart/Acetaminophen (Hydrocodone/Apap 10/325 Tab) 1 tab PO Q4H PRN PRN Reason: Pain scale 5-7 (Moderate) Last Admin: 03/11/21 16:48 Dose: 1 tab Documented by: Allopurinol (Allopurinol 100 Mg Tab) 200 mg PO DAILY [facility] Last Admin: 03/11/21 09:23 Dose: 200 mg Documented by: Amitriptyline HCl (Amitriptyline 50 Mg Tab) 50 mg PO BEDTIME [facility] Last Admin: 03/10/21 20:01 Dose: 50 mg Documented by: Aspirin (Aspirin 81 Mg Chewable Tablet) 81 mg PO DAILY [facility] Last Admin: 03/11/21 09:23 Dose: 81 mg Documented by: Atorvastatin Calcium (Atorvastatin 40 Mg Tab) 40 mg PO DAILY [facility] Last Admin: 03/11/21 09:28 Dose: 40 mg Documented by: Benzonatate (Benzonatate 100 Mg Cap) 100 mg PO TID PRN PRN Reason: COUGH Last Admin: 03/09/21 22:02 Dose: 100 mg Documented by: Bumetanide (Bumetanide 1 Mg Tablet) 2 mg PO DAILY [facility] Last Admin: 03/11/21 09:25 Dose: 2 mg Documented by: Dextrose (D50w 25 Gm/50 Ml Vial) 12.5 gm IV PRN PRN; Protocol PRN Reason: HYPOGLYCEMIA Docusate Sodium (Docusate Na 100 Mg Cap) 100 mg PO BID [facility] Last Admin: 03/11/21 09:24 Dose: 100 mg Documented by: Doxepin HCl (Doxepin Hcl 25 Mg Cap) 50 mg PO DAILY [facility] Last Admin: 03/11/21 09:24 Dose: 50 mg Documented by: Doxepin HCl (Doxepin Hcl 25 Mg Cap) 75 mg PO BEDTIME [facility] Last Admin: 03/10/21 20:01 Dose: 75 mg Documented by: Duloxetine HCl (Duloxetine 30 Mg Cap) 60 mg PO DAILY [facility] Last Admin: 03/11/21 09:24 Dose: 60 mg Documented by: Enoxaparin Sodium (Enoxaparin 40 Mg/0.4 Ml) 40 mg SQ DAILY [facility] Last Admin: 03/11/21 09:27 Dose: 40 mg Documented by: Folic Acid (Folic Acid 1 Mg Tablet) 1 mg PO DAILY [facility] Last Admin: 03/11/21 09:24 Dose: 1 mg Documented by: Glucagon (Glucagon 1 Mg/Vial) 1 mg IM 1X PRN; Protocol PRN Reason: HYPOGLYCEMIA Guaifenesin (Guaifenesin 600 Mg Sa Tab) 600 mg PO BID [facility] Last Admin: 03/11/21 09:26 Dose: 600 mg Documented by: Home Med (Methotrexate 2.5 Mg Tablets) 5 ea PO EVERY 7TH DAY [facility] Last Admin: 03/06/21 12:44 Dose: 5 ea Documented by: Home Med (Semaglutide [Ozempic]) 0.5 mg SQ EVERY 7TH DAY [facility] Last Admin: 03/06/21 15:03 Dose: 0.5 mg Documented by: Home Med (Aripiprazole [Aripiprazole]) 2 mg PO DAILY [facility] Last Admin: 03/11/21 09:25 Dose: 2 mg Documented by: Insulin Human NPH (Nph (Human) 100 Units/Ml Insulin) 15 units SQ BID [facility] Last Admin: 03/11/21 09:26 Dose: 15 units Documented by: Insulin Human Regular (Insulin -Regular Human 50 Unit/0.5 Ml Ml) 0 unit SQ ACHS [facility]; Protocol Last Admin: 03/11/21 16:47 Dose: 10 unit Documented by: Lisinopril (Lisinopril 5 Mg Tab) 5 mg PO DAILY [facility] Last Admin: 03/11/21 09:25 Dose: 5 mg Documented by: Magnesium Hydroxide (Magnesium Hydroxide 8% 30 Ml) 30 ml PO BID PRN PRN Reason: CONSTIPATION Morphine Sulfate (Morphine 2 Mg/Ml Syr) 2 mg IV Q6H PRN PRN Reason: Pain scale 5-7 (Moderate) Last Admin: 03/11/21 07:11 Dose: 2 mg Documented by: Multivitamins/Iron (Fe Sulf/Fa/Vit B Comp & C Tab) 1 tab PO DAILY WITH BREAKFAST [facility] Last Admin: 03/11/21 09:24 Dose: 1 tab Documented by: Ondansetron HCl (Ondansetron 4 Mg/2 Ml Vial) 4 mg IV Q6HP PRN PRN Reason: NAUSEA / VOMITING Prednisone (Prednisone 10 Mg Tab) 10 mg PO DAILY [facility] Last Admin: 03/11/21 09:24 Dose: 10 mg Documented by: Sodium Chloride (Flush Normal Saline 10 Ml) 10 ml IV BID [facility] Last Admin: 03/11/21 09:27 Dose: 10 ml Documented by: Microbiology Results 03/01/21 18:54 Blood - Blood Aerobic Blood Culture - Final No growth in 5 days. 03/01/21 18:54 Blood - Blood Anaerobic Blood Culture - Final No growth in 5 days. 03/01/21 18:25 Blood - Blood Aerobic Blood Culture - Final No growth in 5 days. 03/01/21 18:25 Blood - Blood Anaerobic Blood Culture - Final No growth in 5 days. 03/01/21 19:50 Clean Catch Urine [place] Count - Final BETWEEN 10,000 & 100,000 CFU/ML 03/01/21 19:50 Clean Catch Urine - Final MIXED [place]. Assessment/ Plan: Nephrology Progress Note Persistent knee pain No dyspnea. No chest pain. No acute events overnight Vitals, medications blood work and imaging reviewed in the chart General: Oriented x3, Cooperative, Mild distress HEENT: Atraumatic Neck: Supple Respiratory: Clear to auscultation bilaterally Cardiovascular: LE Edema 1+, Regular rate/rhythm Gastrointestinal: Non-distended, Tenderness Musculoskeletal: No clubbing, No contractures Integumentary: No rashes, No cyanosis Neurological: Normal speech Laboratory Data (last 24 hrs) 03/01/21 18:25: Lipase 85 03/01/21 17:10: PT 12.3, INR 1.07 03/01/21 17:10: WBC 20.90 H*, Hgb 10.2 L, Hct 30.9 L, Plt Count 349 03/01/21 17:10: Sodium 135 L, Potassium 3.6, BUN 30 H, Creatinine 1.65 H, Glucose 160 H, Magnesium 1.3 L* D, Total Bilirubin 0.4, AST 36, ALT 25, Alkaline Phosphatase 63 Imagings Data: EXAM DESCRIPTION: US - Extrem Venous W Compress Delta - 03/01/2021 8:30 pm CLINICAL HISTORY: PAIN COMPARISON: None. TECHNIQUE: Real-time sonographic evaluation of the bilateral lower extremity common femoral, superficial femoral, popliteal and posterior tibial veins was performed. FINDINGS: Normal compressibility, flow augmentation, phasic flow and spontaneous flow are identified in the left and right lower extremity common femoral, superficial femoral, popliteal and left posterior tibial veins. No intraluminal filling defects seen. Right posterior tibial vein were difficult to compress. DVT is doubtful but not excluded. IMPRESSION: No DVT in the left lower extremity. Right leg also appears to be clear of deep venous thrombosis though posterior tibial vein was more difficult to evaluate. EXAM DESCRIPTION: CT - Stone Protocol - 03/01/2021 7:20 pm CLINICAL HISTORY: ABDOMINAL DISTENTION COMPARISON: Abdomen Pelvis Wo Contrast dated 08/08/2018 TECHNIQUE: Axial [address] imaging of the abdomen and pelvis was performed without IV contrast. No IV contrast was given because of allergy, abnormal renal function, patient refusal or physician request. No oral contrast administered. All CT scans are performed using dose optimization technique as appropriate and may include automated exposure control or mA/KV adjustment according to patient size. FINDINGS: Airspace opacification is present in the medial left lung base not present on prior imaging. There is bronchiectasis in this region that was present on prior imaging. No pneumothorax or pleural effusion. Small hiatal hernia is present. No liver abnormality seen. Gallbladder is absent. No pancreatic abnormality seen peer biliary tree is normal size. Spleen is surgically absent. No hydronephrosis or suspicious renal mass. Left kidney is smaller than the right. No perinephric stranding. No significant adrenal finding. Isodense renal masses and pyelonephritis cannot be excluded in the absence of IV contrast. Well filled urinary bladder shows no wall thickening or mass. No urinary bladder calculi. Calcified uterine fibroid is seen. No primary ovarian or uterine process seen. No dilated bowel loops or bowel wall thickening. No appendicitis or other acute GI process identifiable. No free air, free fluid or inflammatory stranding. No hernia, mass or bulky lymphadenopathy. No suspicious bony findings. IMPRESSION: Patchy airspace opacification medial left lung base suspicious for early pneumonia. Correlation is needed with any clinical or laboratory findings. Abdomen and pelvis show no acute findings. Above detailed findings are stable from 2019. Full assessment is limited is the absence of IV contrast. EXAM DESCRIPTION: RAD - Chest Single View - 03/01/2021 6:40 pm CLINICAL HISTORY: SOB COMPARISON: August 16 TECHNIQUE: AP portable chest image was obtained 03/01/2021 6:40 pm . FINDINGS: Technical artifacts overlie the lower chest and there is additional respiratory motion artifact. Left subclavian pacemaker is in place. Minimal medial left base opacification is present. No significant failure or volume overload. Heart and vasculature are normal. No measurable pleural effusion and no pneumothorax. No acute bony abnormality seen. No acute aortic findings suspected. IMPRESSION: Minimal medial left base opacification. Early pneumonia cannot be excluded. Conclusions/Impression: RAQUEL likely due to hypovolemia CKD III -No NSAIDs Hypomagnesemia -Give IV Mag prn HTN -Continue Lisinopril and titrate as needed LE Edema -Continue Bumex DM II with CKD -RISS Mild malnutrition -Encourage nutrition Anemia in chronic illness -Monitor H&H Gout -Continue Allopurinol Lobar PNA -Continue Zithromax & Rocephin -Continue Mucinex BID Slow transit constipation -Continue Colace BID -MoM prn Case reviewed with Dr. Early
[2021-03-11] MEDS: AMITRIPTYLINE 50 MG TAB PO SCH (21:04)
[2021-03-12 05:17] VITALS: O2SAT 96
[2021-03-12] MEDS: HYDROCODONE/APAP 10/325 TAB PO PRN ×2 (05:17→11:37)
--- NOTE | 2021-03-12 06:08 | P.PN ---
Subjective Date of Service: 03/12/21 Primary Care Provider: Dr. Clements Chief Complaint: Pneumonia, NSTEMI Subjective: Improving, Doing well Physical Examination - Vital Signs Temperature: 98.0 F Blood Pressure: 101/54 Pulse: 70 Respirations: 18 Pulse Ox (%): 96 - Studies Medications List Reviewed: Yes Assessment & Plan Discharge Plan: Home (With home health and physical therapy/Occupational Therapy) Plan to discharge in: 24 Hours Physician Review Additional Text: COVID: negative CXR: COMPARISON: September 06 TECHNIQUE: AP portable chest image was obtained 03/01/2021 6:40 pm . FINDINGS: Technical artifacts overlie the lower chest and there is additional respiratory motion artifact. Left subclavian pacemaker is in place. Minimal medial left base opacification is present. No significant failure or volume overload. Heart and vasculature are normal. No measurable pleural effusion and no pneumothorax. No acute bony abnormality seen. No acute aortic findings suspected. IMPRESSION: Minimal medial left base opacification. Early pneumonia cannot be excluded. CT AB: COMPARISON: Abdomen Pelvis Wo Contrast dated 08/08/2018 TECHNIQUE: Axial [address] imaging of the abdomen and pelvis was performed without IV contrast. No IV contrast was given because of allergy, abnormal renal function, patient refusal or physician request. No oral contrast administered. All CT scans are performed using dose optimization technique as appropriate and may include automated exposure control or mA/KV adjustment according to patient size. FINDINGS: Airspace opacification is present in the medial left lung base not present on prior imaging. There is bronchiectasis in this region that was pres ent on prior imaging. No pneumothorax or pleural effusion. Small hiatal hernia is present. No liver abnormality seen. Gallbladder is absent. No pancreatic abnormality seen peer biliary tree is normal size. Spleen is surgically absent. No hydronephrosis or suspicious renal mass. Left kidney is smaller than the right. No perinephric stranding. No significant adrenal finding. Isodense renal masses and pyelonephritis cannot be excluded in the absence of IV contrast. Well filled urinary bladder shows no wall thickening or mass. No urinary bladder calculi. Calcified uterine fibroid is seen. No primary ovarian or uterine process seen. No dilated bowel loops or bowel wall thickening. No appendicitis or other acute GI process identifiable. No free air, free fluid or inflammatory stranding. No hernia, mass or bulky lymphadenopathy. No suspicious bony findings. IMPRESSION: Patchy airspace opacification medial left lung base suspicious for early pneumonia. Correlation is needed with any clinical or laboratory findings. Abdomen and pelvis show no acute findings. Above detailed findings are stable from 2019. Full assessment is limited is the absence of IV contrast. Venous doppler: COMPARISON: None. TECHNIQUE: Real-time sonographic evaluation of the bilateral lower extremity common femoral, superficial femoral, popliteal and posterior tibial veins was performed. FINDINGS: Normal compressibility, flow augmentation, phasic flow and spontaneous flow are identified in the left and right lower extremity common femoral, superficial femoral, popliteal and left posterior tibial veins. No intraluminal filling defects seen. Right posterior tibial vein were difficult to compress. DVT is doubtful but not excluded. IMPRESSION: No DVT in the left lower extremity. Right leg also appears to be clear of deep venous thrombosis though posterior tibial vein was more difficult to evaluate. ECHO: MEASUREMENTS (cm) DIASTOLIC (NORMALS) SYSTOLIC (NORMALS) IVSd 0.8 (0.6-1.2) LA Diam 2.8 (1.9-4.0) LVEF 55-60% LVIDd 4.5 (3.5-5.7) LVIDs 2.6 (2.0-3.5) %FS 42% LVPWd 1.1 (0.6-1.2) Ao Diam 2.5 (2.0-3.7) 2 DIMENSIONAL ASSESSMENT: RIGHT ATRIUM: NORMAL LEFT ATRIUM: NORMAL RIGHT VENTRICLE: NORMAL LEFT VENTRICLE: NORMAL TRICUSPID VALVE: NORMAL MITRAL VALVE: MILD MITRAL REGURGITATION PULMONIC VALVE: MODERATE TRICUSPID REGURGITATION AORTIC VALVE: NORMAL PERICARDIAL EFFUSION: NONE AORTIC ROOT: NORMAL LEFT VENTRICULAR WALL MOTION: NORMAL DOPPLER/COLOR FLOW: SEE BELOW COMMENTS: NORMAL LEFT VENTRICULAR EJECTION FRACTION 55-60%. NORMAL WALL MOTION. MODERATE TRICUSPID REGURGITATION. MILD MITRAL REGURGITATION. Follow up CXR 03/09/2021: COMPARISON: Chest Single View dated 03/06/2021; Chest Single View dated 03/01/2021; Chest Single View dated 09/06/2020; Chest Single View dated 03/27/2020 FINDINGS: Portable technique limits examination quality. Mild interstitial prominence bilaterally is mildly improved since comparative study. The heart is upper limit normal in size. Multilead pacer device is noted. Skin sarmad are seen. IMPRESSION: Mild improvement lung aeration since comparative study. Physical Exam: General: Alert, In no apparent distress, Oriented x3 HEENT: Neck supple Respiratory: Better air movement bilateral Cardiovascular: Regular rate/rhythm, Normal S1 S2 Capillary refill: <2 Seconds Gastrointestinal: Normal bowel sounds, No tenderness Musculoskeletal: Some pain to the right knee. Mild swelling noted. Integumentary: No rashes Neurological: Normal speech, Normal strength at 5/5 x4 extr, Normal tone, Normal affect Lymphatics: No axilla or inguinal lymphadenopathy Impression: Leukocytosis secondary to left-sided pneumonia Elevated troponin likely demand ischemia from acute on chronic diastolic congestive heart failure Acute on chronic renal disease stage III Diabetes mellitus type II Hypertension Hyperlipidemia Hypomagnesemia Generalized weakness/repeated falls with chronic right knee pain Chronic right knee pain Depression with anxiety Chronic pain Anemia chronic disease with iron deficiency Plan: Leukocytosis secondary to left-sided pneumonia: Patient has completed treatment of pneumonia. Continue to wean off prednisone. Chest x-ray shows improvement. Patient on room air. Patient lives alone at home. Patient does not qualify to go to skilled facility. Patient denied to go to skilled facility by insurance. Case discussed in detail with social work and patient. Plan of care will be to discharge patient home with home health and occupational therapy. She has follow-up to see her orthopedic doctor tomorrow. Elevated troponin likely demand ischemia from acute on chronic diastolic congestive heart failure: Patient continues on Bumex 2 mg daily. Continue 1500 cc/day fluid restriction. Acute on chronic renal disease stage III: Overall stable. Continue allopurinol Diabetes mellitus type II: A1c 7.0. Continue sliding scale. Accu-Cheks in p lace. Continue Lantus. Will monitor and adjust appropriately. Hypertension: Continue on low-dose lisinopril 5 mg daily. Hyperlipidemia: Continue medicationLipitor Hypomagnesemia: Protocol in place. Generalized weakness/repeated falls with chronic right knee pain: Patient denied to go to a skilled facility by insurance. We will plan for discharge home with home health and occupational therapy. Patient to see orthopedics tomorrow. Depression with anxiety: Continue with Cymbalta. Patient also takes doxepin and Elavil. Chronic pain: Continue to work with physical therapy. Continue with above plan of care. Patient is seen by Dr. Stanley for right knee pain. Will need to follow- up with Dr. Stanleyorthopecandelaria as an outpatient. Anemia of chronic disease with iron deficiency: Continue with iron supplementation. DVT PPX: Lovenox Code status: Full code Discharge Plan: Discharge home with home health and physical therapy/Occupational Therapy. Time Spent Managing Pts Care (In Minutes): 55
[2021-03-12] MEDS: INSULIN -REGULAR HUMAN 50 UNIT/0.5 ML ML SQ SCH (07:30)
[2021-03-12] MEDS: NPH (HUMAN) 100 UNITS/ML INSULIN SQ SCH (09:00)
[2021-03-12 09:38] VITALS: BP 101/54; TEMP 98
--- NOTE | 2021-03-12 09:40 | P.DS ---
Admission Date: 03/01/21 Discharge Date: 03/12/21 Primary Care Provider: Dr. Clements Disposition: DC HOME/HOME HEALTH CARE Discharge Condition: GOOD Reason for Admission: Pneumonia, NSTEMI Consultations: Nephrology-Dr. Guerrero Procedures: COVID: negative CXR: COMPARISON: September 06 TECHNIQUE: AP portable chest image was obtained 03/01/2021 6:40 pm . FINDINGS: Technical artifacts overlie the lower chest and there is additional respiratory motion artifact. Left subclavian pacemaker is in place. Minimal medial left base opacification is present. No significant failure or volume overload. Heart and vasculature are normal. No measurable pleural effusion and no pneumothorax. No acute bony abnormality seen. No acute aortic f indings suspected. IMPRESSION: Minimal medial left base opacification. Early pneumonia cannot be excluded. CT AB: COMPARISON: Abdomen Pelvis Wo Contrast dated 08/08/2018 TECHNIQUE: Axial [address] imaging of the abdomen and pelvis was performed without IV contrast. No IV contrast was given because of allergy, abnormal renal function, patient refusal or physician request. No oral contrast administered. All CT scans are performed using dose optimization technique as appropriate and may include automated exposure control or mA/KV adjustment according to patient size. FINDINGS: Airspace opacification is present in the medial left lung base not present on prior imaging. There is bronchiectasis in this region that was present on prior imaging. No pneumothorax or pleural effusion. Small hiatal hernia is present. No liver abnormality seen. Gallbladder is absent. No pancreatic abnormality seen peer biliary tree is normal size. Spleen is surgically absent. No hydronephrosis or suspicious renal mass. Left kidney is smaller than the right. No perinephric stranding. No significant adrenal finding. Isodense renal masses and pyelonephritis cannot be excluded in the absence of IV contrast. Well filled urinary bladder shows no wall thickening or mass. No urinary bladder calculi. Calcified uterine fibroid is seen. No primary ovarian or uterine process seen. No dilated bowel loops or bowel wall thickening. No appendicitis or other acute GI process identifiable. No free air, free fluid or inflammatory stranding. No hernia, mass or bulky lymphadenopathy. No suspicious bony findings. IMPRESSION: Patchy airspace opacification medial left lung base suspicious for early pneumonia. Correlation is needed with any clinical or laboratory findings. Abdomen and pelvis show no acute findings. Above detailed findings are stable from 2019. Full assessment is limited is the absence of IV contrast. Venous doppler: COMPARISON: None. TECHNIQUE: Real-time sonographic evaluation of the bilateral lower extremity common femoral, superficial femoral, popliteal and posterior tibial veins was performed. FINDINGS: Normal compressibility, flow augmentation, phasic flow and spontaneous flow are identified in the left and right lower extremity common femoral, superficial femoral, popliteal and left posterior tibial veins. No intraluminal filling defects seen. Right posterior tibial vein were difficult to compress. DVT is doubtful but not excluded. IMPRESSION: No DVT in the left lower extremity. Right leg also appears to be clear of deep venous thrombosis though posterior tibial vein was more difficult to evaluate. ECHO: MEASUREMENTS (cm) DIASTOLIC (NORMALS) SYSTOLIC (NORMALS) IVSd 0.8 (0.6-1.2) LA Diam 2.8 (1.9-4.0) LVEF 55-60% LVIDd 4.5 (3.5-5.7) LVIDs 2.6 (2.0-3.5) %FS 42% LVPWd 1.1 (0.6-1.2) Ao Diam 2.5 (2.0-3.7) 2 DIMENSIONAL ASSESSMENT: RIGHT ATRIUM: NORMAL LEFT ATRIUM: NORMAL RIGHT VENTRICLE: NORMAL LEFT VENTRICLE: NORMAL TRICUSPID VALVE: NORMAL MITRAL VALVE: MILD MITRAL REGURGITATION PULMONIC VALVE: MODERATE TRICUSPID REGURGITATION AORTIC VALVE: NORMAL PERICARDIAL EFFUSION: NONE AORTIC ROOT: NORMAL LEFT VENTRICULAR WALL MOTION: NORMAL DOPPLER/COLOR FLOW: SEE BELOW COMMENTS: NORMAL LEFT VENTRICULAR EJECTION FRACTION 55-60%. NORMAL WALL MOTION. MODERATE TRICUSPID REGURGITATION. MILD MITRAL REGURGITATION. Knee xray: COMPARISON: Knee Right 3 View dated 01/30/2021; Knee Right 3 View dated 05/14/2020 FINDINGS: No acute fracture. No malalignment. Moderate lateral compartment narrowing. Mild patellofemoral compartment spurring. IMPRESSION: No acute osseous abnormality involving the right knee. Follow up CXR 03/09/2021: COMPARISON: Chest Single View dated 03/06/2021; Chest Single View dated 03/01/2021; Chest Single View dated 09/06/2020; Chest Single View dated 03/27/2020 FINDINGS: Portable technique limits examination quality. Mild interstitial prominence bilaterally is mildly improved since comparative study. The heart is upper limit normal in size. Multilead pacer device is noted. Skin sarmad are seen. IMPRESSION: Mild improvement lung aeration since comparative study. Medical problem list: Leukocytosis secondary to left-sided pneumonia Elevated troponin likely demand ischemia from acute on chronic diastolic congestive heart failure Acute on chronic renal disease stage III Diabetes mellitus type II Hypertension Hyperlipidemia Hypomagnesemia Generalized weakness/repeated falls with chronic right knee pain Chronic right knee pain Depression with anxiety Chronic pain Anemia chronic disease with iron deficiency Brief History of Present Illness: 61-year-old female with history of diabetes type 2, chronic diastolic congestive heart failure, hypertension, hyperlipidemia, CKD 3 presents the emergency department for generalized weakness, repeated falls. Patient reports has been feeling unwell over the course of last few weeks with multiple falls primarily when changing positions from sitting to standing. Patient also reports cough, shortness of breath increasing over the course of the last week. Patient was evaluated in the emergency department labs were significant for white blood cell count 20.9 hemoglobin 10.2 hematocrit 30.9 sodium 135 creatinine 1.65 GFR 38 glucose 138 magnesium 1.3 troponin 0 0.18 BNP [address] demonstrated patchy airspace opacification medial left lung base suspicious for early pneumonia. Urinalysis pending. Patient was started on antibiotic therapy to cover for pneumonia. Patient admitted for further evaluation and treatment. Hospital Course: Patient presented with weakness, leukocytosis secondary to left-sided pneumonia. Patient was treated during the course of her stay. Patient has completed treatment. Patient on room air. Patient also found to have elevated troponin likely ischemic demand with underlying acute on chronic diastolic CHF. Patient has done well during the course of her stay. Patient has had multiple falls at home due to chronic right knee pain. Patient was evaluated for skilled placement. Unfortunately insurance denied placement. Patient has been working well with physical therapy. Patient ambulating well. At discharge patient will return home. Home health and physical therapy along with occupational therapy will be arranged prior to discharge. Fall precautions in place. At discharge the patient will continue with prednisone 10 mg daily for the next 7 days. Patient may continue with her albuterol 3 times a day as needed for shortness of breath. Patient will follow up with orthopedics tomorrow as an outpatient to further address her chronic right knee pain. Patient may require surgical intervention in the future. Fall precautions in place. Patient with underlying chronic diastolic CHF. Patient received diuretic therapy during the course of her stay. Overall stable at discharge. At discharge patient will continue with the 1500 cc/day fluid restriction and low- salt diet. Recommend to monitor her weight daily. If her weight increases by more than 5 pounds she is to contact her PCP for further recommendation. At discharge patient will continue with Bumex 2 mg daily. Patient with diabetes mellitus type 2. Overall stable. At discharge patient will continue with insulin NPH 15 units subcu twice daily and Ozempic once a week. Recommend to maintain blood sugar less than 140 fasting and less than 200 after meals. Recommend to recheck hemoglobin A1c every 3 months to monitor progress. Recommend follow-up with PCP in 1 to 2 weeks to follow-up his hospitalization and continue her care. Patient with hypertension. Overall stable. At discharge patient will continue with lisinopril 5 mg daily and aspirin 80 mg daily. Patient with hyperlipidemia. At discharge patient will continue with her medication Lipitor 40 mg daily. Patient with depression with anxiety. At discharge patient will continue with her medications including doxepin 50 mg daily, doxepin 75 mg at bedtime, Elavil 50 mg at bedtime, Cymbalta 60 mg daily, and Aripiprazole 2 mg daily. Recommend follow-up with her PCP to further monitor and adjust medication. Patient with repeated falls at home with chronic right knee pain. Patient with underlying gout and chronic pain. At discharge patient will continue with allopurinol 200 mg daily. Patient will also continue with vitamin supplementation. Patient will continue with her methotrexate as directed. As mentioned above patient will continue with home health and physical therapy along with occupational therapy at home. Fall precautions in place. Patient has follow-up with orthopedics tomorrow to further evaluate her chronic right knee pain. Patient may require surgical intervention in the future. Patient with anemia chronic disease. At discharge patient will continue with vitamin supplementation daily. This includes iron supplementation, folic acid 1 mg daily, vitamin C daily, vitamin D daily, and vitamin B12. Vital Signs/Physical Exam: Temp Pulse Resp BP Pulse Ox 98.0 F 70 18 101/54 L 96 03/12/21 09:38 03/12/21 09:38 03/12/21 09:38 03/12/21 09:38 03/12/21 09:38 General: Alert, In no apparent distress, Oriented x3, Cooperative HEENT: Atraumatic Neck: Supple Respiratory: Clear to auscultation bilaterally, Normal air movement Cardiovascular: Normal pulses, Regular rate/rhythm Gastrointestinal: Normal bowel sounds, No ascites, No tenderness, No masses, No rebound, No guarding Musculoskeletal: Other (Mild swelling to the right knee. Patient able to ambulate appropriately.) Integumentary: No erythema, Tenderness/swelling (Mild tenderness to the right knee) Neurological: Normal speech, Normal strength at 5/5 x4 extr, Normal tone, Normal affect Laboratory Data at Discharge: WBC 14.00 K/uL (4.3-10.9) H 03/10/21 06:24 Hgb 8.7 g/dL (12.0-15.0) L 03/10/21 06:24 Hct 26.2 % (36.0-45.0) L 03/10/21 06:24 Plt Count 560 K/uL (152-406) H 03/10/21 06:24 PT 12.3 SECONDS (9.5-12.5) 03/01/21 17:10 INR 1.07 03/01/21 17:10 Sodium 143 mmol/L (136-145) 03/11/21 03:58 Potassium 4.0 mmol/L (3.5-5.1) 03/11/21 03:58 BUN 25 mg/dL (7-18) H 03/11/21 03:58 Creatinine 1.16 mg/dL (0.55-1.3) 03/11/21 03:58 Glucose 158 mg/dL (74-106) H 03/11/21 03:58 Uric Acid 3.4 mg/dL (2.6-6.0) 03/03/21 08:00 Phosphorus 3.8 mg/dL (2.5-4.9) 03/08/21 05:18 Magnesium 2.1 mg/dL (1.8-2.4) 03/10/21 06:24 Total Bilirubin 0.2 mg/dL (0.2-1.0) 03/10/21 06:24 AST 58 U/L (15-37) H 03/10/21 06:24 ALT 77 U/L (12-78) 03/10/21 06:24 Alkaline Phosphatase 68 U/L (45-117) 03/10/21 06:24 Troponin I 0.17 ng/mL (0.0-0.045) H 03/02/21 05:10 Triglycerides 171 mg/dL (<150) H 03/02/21 05:10 Cholesterol 99 mg/dL (<200) 03/02/21 05:10 HDL Cholesterol 44 mg/dL (40-60) 03/02/21 05:10 Cholesterol/HDL Ratio 2.25 03/02/21 05:10 Lipase 85 U/L (73-393) 03/01/21 18:25 Home Medications: Aspirin 81 mg PO DAILY 03/27/20 Bumetanide 2 mg PO DAILY 03/27/20 Insulin NPH Human [Novolin N (Humulin N)*] 15 units SQ BID 03/27/20 Iron,Carbonyl/Ascorbic Acid [Iron 100-Vitamin C Tablet] 65 mg PO DAILY 03/27/20 Lisinopril [Zestril] 5 mg PO DAILY 03/27/20 Amitriptyline [Elavil*] 50 mg PO BEDTIME 09/07/20 Atorvastatin Calcium 40 mg PO DAILY 09/07/20 Duloxetine HCl 60 mg PO DAILY 09/07/20 Folic Acid 1 mg PO DAILY 09/07/20 ARIPiprazole [Aripiprazole] 2 mg PO DAILY 03/02/21 Albuterol Sulfate [Albuterol Sulfate Hfa] 2 puff IH TID 03/02/21 Allopurinol 200 mg PO DAILY 03/02/21 Doxepin HCl 50 mg PO DAILY 03/02/21 Doxepin HCl 75 mg PO BEDTIME 03/02/21 Methotrexate [Methotrexate*] 5 tab PO EVERY 7TH DAY 03/02/21 Nitroglycerin [Nitrostat*] 0.4 mg SL PRN PRN 03/02/21 Semaglutide [Ozempic] 0.5 mg SQ EVERY 7TH DAY 03/02/21 Cholecalciferol (Vitamin D3) [Vitamin D3] 1,000 unit PO DAILY 03/09/21 Mecobalamin [B12 Active] 1,000 mcg PO DAILY 03/09/21 predniSONE [Deltasone*] 10 mg PO DAILY #7 tab 03/12/21 New Medications: predniSONE [Deltasone*] 10 mg PO DAILY #7 tab Physician Discharge Instructions: Patient presented with weakness, leukocytosis secondary to left-sided pneumonia. Patient was treated during the course of her stay. Patient has completed treatment. Patient on room air. Patient also found to have elevated troponin likely ischemic demand with underlying acute on chronic diastolic CHF. Patient has done well during the course of her stay. Patient has had multiple falls at home due to chronic right knee pain. Patient was evaluated for skilled placement. Unfortunately insurance denied placement. Patient has been working well with physical therapy. Patient ambulating well. At discharge patient will return home. Home health and physical therapy along with occupational therapy will be arranged prior to discharge. Fall precautions in place. At discharge the patient will continue with prednisone 10 mg daily for the next 7 days. Patient may continue with her albuterol 3 times a day as needed for shortness of breath. Patient will follow up with orthopedics tomorrow as an outpatient to further address her chronic right knee pain. Patient may require surgical intervention in the future. Fall precautions in place. Patient with underlying chronic diastolic CHF. Patient received diuretic therapy during the course of her stay. Overall stable at discharge. At discharge patient will continue with the 1500 cc/day fluid restriction and low- salt diet. Recommend to monitor her weight daily. If her weight increases by more than 5 pounds she is to contact her PCP for further recommendation. At discharge patient will continue with Bumex 2 mg daily. Patient with diabetes mellitus type 2. Overall stable. At discharge patient will continue with insulin NPH 15 units subcu twice daily and Ozempic once a week. Recommend to maintain blood sugar less than 140 fasting and less than 200 after meals. Recommend to recheck hemoglobin A1c every 3 months to monitor progress. Recommend follow-up with PCP in 1 to 2 weeks to follow-up his hospitalization and continue her care. Patient with hypertension. Overall stable. At discharge patient will continue with lisinopril 5 mg daily and aspirin 81 mg daily. Patient with hyperlipidemia. At discharge patient will continue with her medication Lipitor 40 mg daily. Patient with depression with anxiety. At discharge patient will continue with her medications including doxepin 50 mg daily, doxepin 75 mg at bedtime, Elavil 50 mg at bedtime, Cymbalta 60 mg daily, and Aripiprazole 2 mg daily. Recommend follow-up with her PCP to further monitor and adjust medication. Patient with repeated falls at home with chronic right knee pain. Patient with underlying gout and chronic pain. At discharge patient will continue with allopurinol 200 mg daily. Patient will also continue with vitamin supplementation. Patient will continue with her methotrexate as directed. As mentioned above patient will continue with home health and physical therapy along with occupational therapy at home. Fall precautions in place. Patient has follow-up with orthopedics tomorrow to further evaluate her chronic right knee pain. Patient may require surgical intervention in the future. Patient with anemia chronic disease. At discharge patient will continue with vitamin supplementation daily. This includes iron supplementation, folic acid 1 mg daily, vitamin C daily, vitamin D daily, and vitamin B12. Diet: ADA Activity: Fall precautions Followup: Unknown,U [Primary Care Provider] - Time spent managing pt's care (in minutes): 55
[2021-03-12] MEDS: FOLIC ACID 1 MG TABLET PO SCH (09:45)
[2021-03-12] MEDS: ASPIRIN 81 MG CHEWABLE TABLET PO SCH (09:45)
[2021-03-12] MEDS: DULOXETINE 30 MG CAP PO SCH (09:45)
[2021-03-12] MEDS: allopurinoL 100 MG TAB PO SCH (09:46)
[2021-03-12] MEDS: lisinopriL 5 MG TAB PO SCH (09:46)
[2021-03-12] MEDS: predniSONE 10 MG TAB PO SCH (09:46)
[2021-03-12] MEDS: ATORVASTATIN 40 MG TAB PO SCH (09:46)
[2021-03-12] MEDS: GUAIFENESIN 600 MG SA TAB PO SCH (09:46)
[2021-03-12] MEDS: FE SULF/FA/VIT B COMP & C TAB PO SCH (09:46)
[2021-03-12] MEDS: DOXEPIN HCL 25 MG CAP PO SCH (09:47)
[2021-03-12] MEDS: BUMETANIDE 1 MG TABLET PO SCH (09:47)
[2021-03-12] MEDS: DOCUSATE NA 100 MG CAP PO SCH (09:47)
[2021-03-12] MEDS: ENOXAPARIN 40 MG/0.4 ML SQ SCH (09:49)
--- NOTE | 2021-03-12 20:09 | P.PN ---
Date of Service: 03/12/21 Vital Signs Temp Pulse Resp BP Pulse Ox 98.0 F 70 18 101/54 L 96 03/12/21 09:38 03/12/21 09:38 03/12/21 09:38 03/12/21 09:38 03/12/21 09:38 Microbiology Results 03/01/21 18:54 Blood - Blood Aerobic Blood Culture - Final No growth in 5 days. 03/01/21 18:54 Blood - Blood Anaerobic Blood Culture - Final No growth in 5 days. 03/01/21 18:25 Blood - Blood Aerobic Blood Culture - Final No growth in 5 days. 03/01/21 18:25 Blood - Blood Anaerobic Blood Culture - Final No growth in 5 days. 03/01/21 19:50 Clean Catch Urine [place] Count - Final BETWEEN 10,000 & 100,000 CFU/ML 03/01/21 19:50 Clean Catch Urine - Final MIXED KURTIS. Assessment/ Plan: Nephrology Progress Note Persistent knee pain No dyspnea. No chest pain. No acute events overnight Vitals, medications blood work and imaging reviewed in the chart General: Oriented x3, Cooperative, Mild distress HEENT: Atraumatic Neck: Supple Respiratory: Clear to auscultation bilaterally Cardiovascular: LE Edema 1+, Regular rate/rhythm Gastrointestinal: Non-distended, Tenderness Musculoskeletal: No clubbing, No contractures Integumentary: No rashes, No cyanosis Neurological: Normal speech Laboratory Data (last 24 hrs) 03/01/21 18:25: Lipase 85 03/01/21 17:10: PT 12.3, INR 1.07 03/01/21 17:10: WBC 20.90 H*, Hgb 10.2 L, Hct 30.9 L, Plt Count 349 03/01/21 17:10: Sodium 135 L, Potassium 3.6, BUN 30 H, Creatinine 1.65 H, Glucose 160 H, Magnesium 1.3 L* D, Total Bilirubin 0.4, AST 36, ALT 25, Alkaline Phosphatase 63 Imagings Data: EXAM DESCRIPTION: US - Extrem Venous W Compress Delta - 03/01/2021 8:30 pm CLINICAL HISTORY: PAIN COMPARISON: None. TECHNIQUE: Real-time sonographic evaluation of the bilateral lower extremity common femoral, superficial femoral, popliteal and posterior tibial veins was performed. FINDINGS: Normal compressibility, flow augmentation, phasic flow and spontaneous flow are identified in the left and right lower extremity common femoral, superficial femoral, popliteal and left posterior tibial veins. No intraluminal filling defects seen. Right posterior tibial vein were difficult to compress. DVT is doubtful but not excluded. IMPRESSION: No DVT in the left lower extremity. Right leg also appears to be clear of deep venous thrombosis though posterior tibial vein was more difficult to evaluate. EXAM DESCRIPTION: CT - Stone Protocol - 03/01/2021 7:20 pm CLINICAL HISTORY: ABDOMINAL DISTENTION COMPARISON: Abdomen Pelvis Wo Contrast dated 08/08/2018 TECHNIQUE: Axial [address] imaging of the abdomen and pelvis was performed without IV contrast. No IV contrast was given because of allergy, abnormal renal function, patient refusal or physician request. No oral contrast administered. All CT scans are performed using dose optimization technique as appropriate and may include automated exposure control or mA/KV adjustment according to patient size. FINDINGS: Airspace opacification is present in the medial left lung base not present on prior imaging. There is bronchiectasis in this region that was present on prior imaging. No pneumothorax or pleural effusion. Small hiatal hernia is present. No liver abnormality seen. Gallbladder is absent. No pancreatic abnormality seen peer biliary tree is normal size. Spleen is surgically absent. No hydronephrosis or suspicious renal mass. Left kidney is smaller than the right. No perinephric stranding. No significant adrenal finding. Isodense renal masses and pyelonephritis cannot be excluded in the absence of IV contrast. Well filled urinary bladder shows no wall thickening or mass. No urinary bladder calculi. Calcified uterine fibroid is seen. No primary ovarian or uterine process seen. No dilated bowel loops or bowel wall thickening. No appendicitis or other acute GI process identifiable. No free air, free fluid or inflammatory stranding. No hernia, mass or bulky lymphadenopathy. No suspicious bony findings. IMPRESSION: Patchy airspace opacification medial left lung base suspicious for early pneumonia. Correlation is needed with any clinical or laboratory findings. Abdomen and pelvis show no acute findings. Above detailed findings are stable from 2019. Full assessment is limited is the absence of IV contrast. EXAM DESCRIPTION: RAD - Chest Single View - 03/01/2021 6:40 pm CLINICAL HISTORY: SOB COMPARISON: August 16 TECHNIQUE: AP portable chest image was obtained 03/01/2021 6:40 pm . FINDINGS: Technical artifacts overlie the lower chest and there is additional respiratory motion artifact. Left subclavian pacemaker is in place. Minimal medial left base opacification is present. No significant failure or volume overload. Heart and vasculature are normal. No measurable pleural effusion and no pneumothorax. No acute bony abnormality seen. No acute aortic findings suspected. IMPRESSION: Minimal medial left base opacification. Early pneumonia cannot be excluded. Conclusions/Impression: RAQUEL likely due to hypovolemia CKD III -No NSAIDs Hypomagnesemia -Give IV Mag prn HTN -Continue Lisinopril and titrate as needed LE Edema -Continue Bumex DM II with CKD -RISS Mild malnutrition -Encourage nutrition Anemia in chronic illness -Monitor H&H Gout -Continue Allopurinol Lobar PNA -Continue Zithromax & Rocephin -Continue Mucinex BID Slow transit constipation -Continue Colace BID -MoM prn Case reviewed with Dr. Early
== END 2021-03-12 12:32 | disposition home health service (06) | DRG 193 ==
LOC: ER 16:27 → ERHOLD 20:38 → 2ND 03-02 11:00
PROVIDERS: ADMIT Family Medicine; ATTEND Family Medicine
DX: J18.1 Lobar pneumonia, unspecified organism (principal); I50.33 Acute on chronic diastolic (congestive) heart failure; I21.A1 Myocardial infarction type 2; N17.9 Acute kidney failure, unspecified; I13.0 Hypertensive heart and chronic kidney disease with heart failure and stage 1 through stage 4 chronic kidney disease, or unspecified chronic kidney disease; E44.1 Mild protein-calorie malnutrition; F32.3 Major depressive disorder, single episode, severe with psychotic features; N18.31 Chronic kidney disease, stage 3a; E11.22 Type 2 diabetes mellitus with diabetic chronic kidney disease; E11.40 Type 2 diabetes mellitus with diabetic neuropathy, unspecified; E78.5 Hyperlipidemia, unspecified; N30.90 Cystitis, unspecified without hematuria; E11.65 Type 2 diabetes mellitus with hyperglycemia; E83.42 Hypomagnesemia; F41.8 Other specified anxiety disorders; G89.29 Other chronic pain; D72.829 Elevated white blood cell count, unspecified; M25.561 Pain in right knee; D50.9 Iron deficiency anemia, unspecified; M06.9 Rheumatoid arthritis, unspecified; K59.01 Slow transit constipation; M10.9 Gout, unspecified; J20.9 Acute bronchitis, unspecified; E66.9 Obesity, unspecified; R29.6 Repeated falls; Z79.52 Long term (current) use of systemic steroids; Z79.899 Other long term (current) drug therapy; Z91.013 Allergy to seafood; Z90.81 Acquired absence of spleen; Z68.36 Body mass index [BMI] 36.0-36.9, adult; Z79.4 Long term (current) use of insulin; Z95.0 Presence of cardiac pacemaker; Z60.2 Problems related to living alone; Z79.82 Long term (current) use of aspirin; Z88.8 Allergy status to other drugs, medicaments and biological substances; Z20.822 Contact with and (suspected) exposure to COVID-19; Z23 Encounter for immunization
CPT/HCPCS: 36415; 71045; 74176; 76377; 80048; 80053; 80061; 80076; 81003; 81015; 82607; 82746; 82947; 83036; 83605; 83690; 83735; 83880; 84100; 84145; 84439; 84443; 84484; 84550; 85025; 85610; 87040; 87086; 87088; 90471; 93005; 93306; 93970; 94010; 96372; 96374; 96375; 97110; 97116; 97161; 97530; 99284; J0456; J0696; J1650; J1720; J1815; J2270; J2405; J2930; J3010; J3475; J7030; J7050; J7512; Q2035; U0003

== ENCOUNTER 2021-03-25 01:56 | Emergency (ER) | payer OTHER ==
[2021-03-25] MEDS ORDERED: MORPHINE 4 MG/ML SYR ONE ×2 (02:33→07:33)
[2021-03-25] MEDS ORDERED: ONDANSETRON 4 MG/2 ML VIAL ONE (02:33)
[2021-03-25 02:44] LABS: Absolute Lymphocytes (CBC) 2.5 K/uL (0.7-4.9); Basophils % 1.1 % (0-1.3); Lymphocytes % 21.6 % (15.3-44.8); MPV 7.3 fL (7.6-11.3); RBC Red Blood Cell Count 2.97 M/uL (3.86-4.86)
[2021-03-25 02:52] LABS: Albumin 3.3 g/dL (3.4-5.0); Bilirubin Direct 0.2 mg/dL (0-0.2); Bilirubin Total 0.4 mg/dL (0.2-1.0); Potassium 3.3 mmol/L (3.5-5.1); Protein, Total 7.2 g/dL (6.4-8.2)
[2021-03-25] MEDS ORDERED: MEPERIDINE HCL 25 MG/ML SYR ONE (03:02)
[2021-03-25 05:55] LABS: Urine Blood Trace-lysed (Negative); Urine Glucose Negative (Negative); Urine Protein Negative (Negative); Urine Specific Gravity <=1.005 (1.005-1.030)
[2021-03-25 06:10] LABS: Urine RBC <5 /HPF (NONE SEEN)
[2021-03-25 06:11] LABS: Urine Bacteria <20 /HPF (<20)
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
[2021-03-25 08:05] VITALS: TEMP 98
[2021-03-25 08:10] VITALS: BP 121/68; O2SAT 99
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
--- NOTE | 2021-03-25 12:36 | RAD REPORT ---
EXAM DESCRIPTION: CT Abdomen and Pelvis COMPARISON: CT abdomen pelvis March 01, 2021 CLINICAL HISTORY: [facility] MAIN ABD PAIN TECHNIQUE: CT of the abdomen and pelvis was acquired without IV contrast material. Coronal and sag ittal reconstructions were obtained. Automated exposure control was utilized on this examination as a dose lowering technique. FINDINGS: Lung bases: Left lower lobe bronchiectasis is present. *Evaluation of solid organs is limited due to lack of IV contrast. Liver: Normal. Gallbladder and biliary: Cholecystectomy. Unremarkable biliary tree. Pancreas: Normal. Spleen: Normal. Adrenal glands: Normal adrenal glands. Kidneys: Left renal atrophy. Atrophy of the superior right renal pole. Multiple small bilateral renal cortical cysts are present, some of which appear hemorrhagic or proteinaceous. Stomach and Small Bowel: Mild thickening of the distal esophageal wall is noted. Normal stomach. Norm al small bowel. Urinary bladder: Normal. Uterus and Adnexa: A chronic calcified uterine fibroid is noted. Colon and Appendix: The colon is unremarkable. No evidence of appendicitis. Retroperitoneum and lymph nodes: Normal. Vascular: Mild atherosclerosis. Peritoneal cavity: No ascites or free air. Musculoskeletal and soft tissues: Surgical changes of the left back. Lumbar spondylosis is present. P unctate lucencies are noted in the vertebral bodies. Chronic left L4 superior endplate compression de formity. IMPRESSION: 1. Mild thickening of the distal esophageal wall may be due to peristalsis and less like ly neoplastic change. Consider endoscopy if there are upper abdominal symptoms. 2. Bilateral renal atrophy with renal cysts. Electronically signed by: Fei Swain MD 03/25/2021 3:57 AM REGIONAL ENGINEER Due to temporary technical issues with the PACS/Fluency reporting system, reports are being signed by the in house radiologist without review as a courtesy to ensure prompt reporting. The interpreting r adiologist is fully responsible for the content of the report.
--- OUTSIDE RECORDS SUMMARY | 2021-03-29 17:36 | XMS REPORT | Continuity of Care Document ---
:1960 Author Organization [facility] t Address [address] [place] [address] Care Team Providers Name Role Phone Laurel Burris MD Primary Care Physician [phone] Fields_C Attending Clinician Unavailable Naveed_Luis Angel Attending Clinician Unavailable Fields_C Admitting Clinician Unavailable Naveed_Luis Angel Admitting Clinician Unavailable Payers Payer Name Policy Type Policy Number Effective Date Expiration Date [employer] [id number] (MEDICARE 00:00:00 REPLACEMENT/ADVANTAG E - HMO) Problems Condition Condition Condition Status Onset Resolution [...] [facility] ([facility]ary (coronary 08-12 Nonocclus L [facility] - artery artery 00:00: otoniel Medical disease) disease) 00 Center History of History of Disease Active [facility] permanent permanent 08-12 ke s - cardiac cardiac 00:00: Medical pacemaker pacemaker 00 Cent er placement placement Desmoid Desmoid Disease Active Overview: [facility] tumor tumor 08-12 [facility] - 00:[facility]: s/p Medical 00 Thoracic Center Radiation Therapy Pericardia Pericardia Disease Active [facility] l effusion l effusion 3 Pamela s - 00:00: Medical 00 Center Allergies, Adverse Reactions, Alerts Allergy Allergy Status Severity Reaction(s) Onset Inactive Treating Comm ents Source Name Type Date Date Clinician NO KNOWN Allergy Active [facility] ALLERGIE [facility] Family History Family Member Diagnosis Comments Start Date Stop Date Source Natural father Hypertension [facility] Natural father Alcohol abuse [facility] Natural father Heart disease [facility] Natural mother Early [facility] Natural sister Hypertension [facility] Natural brother Hypertension [facility] Natural brother Stroke [facility] Social History Social Habit Start Date Stop Date Quantity Comments Source Sex Assigned At [facility] Tobacco use and 2015-08-13 2015-08-13 Never used [facility] exposure 00:00:00 00:00:00 [facility] Alcohol intake 2015-08-13 2015-08-13 Current [facility] es - 00:00:00 00:00:00 non-drinker of Medical Ce nter alcohol (finding) Smoking Status Start Date Stop Date Source Never smoker [facility] Medications Ordered Filled Start Stop Current Ordering Indication Dosage Frequency Signature Comments Components Source Medication Medication Date Date Medication? Clinician (SIG) Name Name metFORMIN Yes 1000mg Take 1,[address] [facility] (GLUCOPHAGE 3-29 mg by [facility] - ) 1000 MG 15:36: mouth 2 Medic al tablet 54 (two) Center times daily with breakfast and dinner. omeprazole 2016-0 Yes 20mg QD Take [address] (PRILOSEC) 3-29 by mouth [facility] - 20 MG 15:36: daily. Medical capsule [address] [place] ferrous 2016-0 Yes 325mg Take 325 [facility] sulfate 325 3-29 mg by [facility] - (65 FE) MG 15:36: mouth Medica l tablet 54 daily with Center breakfast. cyanocobala 2016-0 Yes 1000ug QD Take 1,[address] [facility] min 1000 3-29 mcg by [facility] - MCG tablet 15:36: mouth Medica l 54 daily. [place] aspirin 81 2016-0 Yes 81mg QD Take [address] MG EC 3-29 by mouth [facility] - tablet 15:36: daily. [address] cyclobenzap 2016-0 Yes 10mg Take [address] [facility] rine 3-29 by mouth 2 [facility] - (FLEXERIL) 15:36: (two) Medica l 10 MG 54 times Center tablet daily as needed for Muscle spasms. simvastatin 2016-0 Yes 20mg QD Take [address] [facility] (ZOCOR) 20 3-29 by mouth [facility] - MG tablet 15:36: nightly. [address] metFORMIN 2016-0 Yes 1000mg Take 1,[address] [facility] [address] (GLUCOPHAGE 3-29 mg by [facility] - ) 1000 MG 15:36: mouth 2 Medic al tablet 54 (two) Center times daily with breakfast and dinner. omeprazole 2016-0 Yes 20mg QD Take [address] (PRILOSEC) 3-29 by mouth [facility] - 20 MG 15:36: daily. Medical capsule [address] [place] ferrous 2016-0 Yes 325mg Take 325 [facility] sulfate 325 3-29 mg by [facility] - (65 FE) MG 15:36: mouth Medica l tablet 54 daily with Center breakfast. cyanocobala 2016-0 Yes 1000ug QD Take 1,[address] [address] min 1000 3-29 mcg by [facility] - MCG tablet 15:36: mouth Medica l 54 daily. [place] aspirin 81 2016-0 Yes 81mg QD Take [address] MG EC 3-29 by mouth [facility] - tablet 15:36: daily. [address] cyclobenzap 2016-0 Yes 10mg Take [address] [facility] rine 3-29 by mouth 2 [facility] - (FLEXERIL) 15:36: (two) Medica l 10 MG 54 times Center tablet daily as needed for Muscle spasms. simvastatin Yes 20mg QD Take [address] (ZOCOR) 20 3-29 by mouth [facility] - MG tablet 15:36: nightly. [facility] 54 Center insulin Yes To use [...] Dispense Medical Insulin Pen 00 as Center Powersite 4 written, mm x 32 G do not substitute . Brand medically necessary. To use 6 a day. insulin Yes To use 30 [facility] [...] Dispense Medical Insulin Pen 00 as Center [place] 4 written, mm x 32 G do not substitute . Brand medically necessary. To use 6 a day. PROAIR HFA Yes 8.5g Inhale 8.[address] 90 3-07 g by mouth [facility] - mcg/actuati 00:00: via Medica l on inhaler [address] needed Inhale two puffs by mouth every 4-6 hours as needed. PROAIR HFA Yes 8.5g Inhale 8.[address] 90 3-07 g by mouth [facility] - mcg/actuati 00:00: via Medica l on inhaler [address] needed Inhale two puffs by mouth every 4-6 hours as needed. magnesium magnesium No 1 Q1D magnesium [place] 400 mg (as 400 mg (as 400 mg (as Family magnesium magnesium magnesium Practic oxide) oxide) oxide) e tablet Take tablet Take tablet 1 tablet 1 tablet Take 1 every day every day tablet by oral by oral every day route. route. by oral route. multivitami multivitami No multivitam [place] n 1 po qd n 1 po qd in 1 po qd Family Practic e Novolin N Novolin N No Novolin N [facility] Flexpen Flexpen Flexpen Family Practic e omeprazole omeprazole No 1capsul Q1D omeprazole [facility] 40 mg 40 mg e(s) 40 [...] days. paroxetine paroxetine No 1 Q1D paroxetine [facility] 20 mg 20 mg 20 mg Family tablet Take tablet Take tablet Practic 1 tablet 1 tablet Take 1 e every day every day tablet by oral by oral every day route for route for by oral 30 days. 30 days. route for 30 days. sertraline sertraline No sertraline [facility] 50 mg 50 mg 50 mg Family tablet tablet tablet Practic e simvastatin simvastatin No 1 Q1D simvastati [place] 20 mg 20 mg n 20 mg Family tablet Take tablet Take tablet Practic 1 tablet 1 tablet Take 1 e every day every day tablet by oral by oral every day route. route. by oral route. tramadol 50 tramadol 50 No tramadol [facility] mg tablet mg tablet 50 mg Fami ly tablet Practic e albuterol albuterol No albuterol [facility] sulfate HFA sulfate HFA sulfate Family 90 90 HFA 90 Practic mcg/actuati mcg/actuati mcg/actuat e on aerosol on aerosol ion inhaler inhaler aerosol inhaler alprazolam alprazolam No 1 alprazolam [facility] 0.25 mg 0.25 mg 0.25 mg Family tablet Take tablet Take tablet Practic 1 tablet as 1 tablet as Take 1 e needed by needed by tablet as oral route oral route needed by for 30 for 30 oral route days. days. for 30 days. amiodarone amiodarone No amiodarone [facility] 200 mg 200 mg 200 mg [...] BD Insulin BD Insulin No BD Insulin [facility] Syringe Syringe Syringe Family Ultra-Fine Ultra-Fine Ultra-Fine Practic 0.3 mL 31 0.3 mL 31 0.3 mL 31 e gauge x gauge x gauge x 5/16" 5/16" 5/16" bumetanide bumetanide No .5 Q1D bumetanide [facility] 2 mg tablet 2 mg tablet [...] folic acid No 1 Q1D folic acid [facility] 1 mg tablet 1 mg tablet 1 mg F amily Take 1 Take 1 tablet Practic tablet tablet Take 1 e every day every day tablet by oral by oral every day route. route. by oral route. lisinopril lisinopril No 1 Q1D lisinopril [facility] 5 mg tablet 5 mg tablet 5 mg F amily Take 1 Take 1 tablet Practic tablet tablet Take 1 e every day every day tablet by oral by oral every day route for route for by oral 90 days. 90 days. route for 90 days. Immunizations Ordered Immunization Filled Immunization Date Status Commen ts Source Name Name influenza, influenza, 2019-03-09 Completed [facility] unspecified unspecified 00:00:00 Practice formulation formulation Vital Signs Vital Name Observation Time Observation Value Comments Source BP Diastolic 2019-08-07 00:00:00 76 mm[Hg] [facility] Height 2019-08-07 00:00:00 68.5 [in_i] [facility] BP Systolic 2019-08-07 00:00:00 120 mm[Hg] [facility] BP Diastolic 2019-07-17 00:00:00 70 mm[Hg] [facility] Height 2019-07-17 00:00:00 68.5 [in_i] [facility] BMI (Body Mass 2019-07-17 00:00:00 34.5 kg/m2 [facility] Family Index) Practice BP Systolic 2019-07-17 00:00:00 126 mm[Hg] [facility] Body Weight 2019-07-17 00:00:00 230 [lb_av] [facility] Procedures This patient has no known procedures. Plan of Care Planned Activity Planned Date Details Comments Source Diagnostic Test Pending 2019-08-07 glucose, Vill age Family 00:00:00 fingerstick, Practice blood [code = glucose, fingerstick, blood] Diagnostic Test Pending 2019-08-07 BMP, serum or Raya nuno Family 00:00:00 plasma [code = Practice BMP, serum or plasma] Instructions [facility] Encounters Start End Encounter Admission Attending Care Care Encounter Source Date/Time Date/Time Type Type Clinicians Facility Department ID 2021-03-29 Outpatient Fields_C VFP VFP [id number] [facility] 01:30:18 [id number] Family Practic e 2021-03-29 Outpatient Anderson_C VFP VFP [id number] [facility] 01:04:12 [id number] Family Practic e 2021-03-29 Outpatient Anderson_C VFP VFP [id number] [facility] 00:03:35 [id number] Family Practic e 2021-03-28 Outpatient Anderson_C VFP VFP [id number] [facility] 23:46:26 [id number] Family Practic e 2021-03-28 Outpatient Fields_C VFP VFP [id number] [facility] 21:37:08 [id number] Family Practic e 2021-03-28 Outpatient Anderson_C VFP VFP [id number] [facility] 21:22:56 [id number] Family Practic e 2021-03-28 Outpatient Anderson_C VFP VFP [id number] [facility] 20:59:56 [id number] Family Practic e 2021-03-28 Outpatient Anderson_C VFP VFP [id number] [facility] 20:48:17 [id number] Family Practic e 2021-03-28 Outpatient Fields_C VFP VFP [id number] [facility] 20:34:35 [id number] Family Practic e 2021-03-28 Outpatient Fields_C VFP VFP [id number] [facility] 14:56:09 [id number] Family Practic e 2019-09-07 Outpatient [id number] [facility] 10:28:52 2021-02-10 2021-02-10 Outpatient [facility] [id number] [facility] 2021-01-21 2021-01-21 Outpatient [facility] [id number] [facility] 2021-01-21 2021-01-21 Outpatient [facility] [id number] [facility] 2021-01-14 2021-01-14 Out[facility] [id number] [facility] 2021-01-07 2021-01-07 Outpatient [facility] [id number] [facility] 2021-01-06 2021-01-06 Outpatient [facility] [id number] [facility] 2021-01-02 2021-01-02 [facility] [id number] 00[facility]00:00 00:00:00 [facility] 2019-08-07 2019-08-07 Delaney Payton [facility] [place] - [id number] [facility] 00:00:00 00:00:00 Ashley Lucio MD: [id number] Medical - [facility] [address], (VMS) [place] [address] , Ph. 2019-07-17 2019-07-17 Delaney Payton [facility] [place] - [id number] [facility] 00:00:00 00:00:00 NaveedAshley MD: [id number] Medical - [facility] [address], (VMS) [place] [address] , Ph. 2019-04-26 2019-04-26 Outpatient [facility] [id number] 07:22:00 07:22:00 [facility] Results Test Description Test Time Test Comments Results Result Sourc e Comments SCR MAMM BILATERAL 2019-04-27 - SCR MAMM BILATERAL [facility] CAD DIGITAL 07:52:28 ELENA CAD DIGITALBILATERAL DIGITAL SCREENING MAMMOGRAM 3D/2D WITH CAD: 04/25/2019CLINICAL: Asymptomatic. Digital breast tomosynthesis was performed in addition to routine CC and MLO views. Current mammographic images were evaluated by either a [employer] M-Vu or a [employer] ImageChecker CAD (computer aided detection system). Comparison is made to exams dated 06/17/2016 mammogram, 05/28/2014 mammogram, and 08/07/2008 mammogram - [facility]-. The tissue of both breasts is predominantly [...] one year. Arnold Doyle M.D. et/penrad:04/27/2019 07:52:28 Parking Supervisor: Asia Lange FW RT(M), [facility]-FWletter sent: BIRADS 1-2 Normal Mammogram BI-RADS: 2 Benign
== END 2021-03-25 07:59 | disposition left against medical advice (07) ==
LOC: ER 01:56
DX: R10.9 Unspecified abdominal pain (principal); Z91.013 Allergy to seafood; Z88.2 Allergy status to sulfonamides; Z20.822 Contact with and (suspected) exposure to COVID-19
CPT/HCPCS: 87088; 85025; 87086; 80048; 36415; 82565; 80076; 83690; 74176; 96375; 96374; 99284; U0003; J2175; J2405; 81003; 81015

== ENCOUNTER 2022-04-16 03:19 | Inpatient (IN) | payer OTHER ==
--- OUTSIDE RECORDS SUMMARY | 2022-04-16 04:42 | XMS REPORT | Continuity of Care Document ---
:1960 Author Organization [facility] [place] [facility] t Address [address] [place] [address] Care Team Providers Name Role Phone MANNCARMEN FILIBERTO Primary Care Physician Unavailable MAT HINTON Attending Clinician Unavailable [id number] Attending Clinician Unavailable АЛЕКСАНДР HOWELL Attending Clinician Unavailable VINCENT RADER Attending Clinician Unavailable Vincent Rader MD Attending Clinician [phone] Doctor Unassigned, [place] Attending Clinician Unavailable Benitez Berger MD Attending Clinician Glenny Jose Attending Clinician GLENNY VIDAL Attending Clinician Unavailable BENITEZ BERGER Attending Clinician Unavailable Pob, [facility] Main Attending Clinician Unavailable Only, Adc Test Attending Clinician Unavailable Wendie Pratt Attending Clinician Unavailable Oracio CHANDRA, Alina Holland Attending Clinician DIANE TAPIA Attending Clinician Unavailable Mathew Raines MD Attending Clinician Kandy Sanchez DO Attending Clinician Diane Tapia MD Attending Clinician VERONICA PENDLETON Attending Clinician Unavailable Alexsander CRUSHER ASSEMBLERVeronica Attending Clinician RADHA VELÁZQUEZ Attending Clinician Unavailable Radha Linares Attending Clinician Davar_P Attending Clinician Unavailable Aldo Bustos MD Attending Clinician ALDO BUSTOS Attending Clinician Unavailable Brent Attending Clinician Unavailable Gonzalez_Luis Angel Attending Clinician Unavailable MAT HINTON Admitting Clinician Unavailable [id number] Admitting Clinician Unavailable VINCENT RADER Admitting Clinician Unavailable BENITEZ BERGER Admitting Clinician Unavailable Benitez Berger MD Admitting Clinician Edith Dalal Admitting Clinician Unavailable KANDY SANCHEZ Admitting Clinician Unavailable Kandy Sanchez DO Admitting Clinician RADHA VELÁZQUEZ Admitting Clinician Unavailable DavClifford Admitting Clinician Unavailable Brent Admitting Clinician Unavailable Khloe Admitting Clinician Unavailable Payers Payer Name Policy Type Policy Number Effective Date Expiration Date Carrillo tapia 5to1 [id number] 2015 HMO 00:00:00 HLSM HLSM [id number] SELF-PAY CI [id number] [employer] [id number] 2015spring 00:00:00 5to1 [id number] 2019 (MEDICARE 00:00:00 REPLACEMENT/ADVANT AGE - HMO) [employer]Flow C1 [id number] Common Medicare Replace [facility] [employer] C1 [id number] Common Medicare Replace [facility] C1 [id number] Common Medicare Replace [facility] C1 [id number] Common Medicare Replace [facility] C1 [id number] Common Medicare Replace [facility] [id number] Common Medicare Replace [facility] C1 [id number] Common Medicare Replace [facility] Problems Condition Condition Condition Status Onset Resolution Last Treating Co mments Source Name Details Category Date Date Treatment Clinician Date Closed Closed Disease Active Univers right right 7-19 ity of ankle ankle 00:00: [place] fracture fracture 00 Medica l Branch Sore Sore Disease Active Univers throat throat 6-14 ity of 00:00: [place] [facility] Cough Cough Disease Active Univers 6-13 ity of 00:00: [facility] Chronic Chronic Disease Active Univers combined combined 6-13 ity of systolic systolic 00:00: and and Medical diastolic 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 failure failure Pacemaker Pacemaker Disease Active Uni vers 6-13 ity of 00:00: [facility] Type 2 Type 2 Disease Active Univers diabetes diabetes 6-13 ity of mellitus mellitus 00:00: [place] without without 00 Medical complicati complicati Br anch on, on, without without long-term long-term current current use of use of insulin insulin Hypokalemi Hypokalemi Disease Active U nivers a a 6-13 ity of 00:00: [place] [facility] Branch Hyponatrem Hyponatrem Disease Active U nivers ia ia 6-13 ity of 00:00: Medical Branch Elevated Elevated Disease Active Unive rs troponin troponin 6-12 ity of 00:00: [place] [facility] Branch Elevated Elevated Disease Active Unive rs troponin troponin 6-12 ity of 00:00: [place] [facility] Branch Obesity Obesity Disease Active 2020-05 Univers (BMI (BMI 2-22 ity of 30-39.9) 30-39.9) 00:00: [address] Branch Primary Primary Disease Active 2020-05 Overview: Univ ers osteoarthr osteoarthr 2-16 Formattin ity of itis of itis of 00:00: g of this [place] right knee right knee 00 note Me dical might be Branch different from the original. Added automatic ally from request for surgery [id number] Monitoring Monitoring Problem Active [facility] of of 07-16 Family pacemaker Pacemaker 00:00: Prac tic 00 e Chronic Chronic Disease Active [facility] systolic [facility] 08[facility]12 [facility]: Medical (congestiv (congestiv 00 Ce nter e heart e heart failure) failure) Insulin Insulin Disease Active [facility] dependent dependent 08-12 [facility] diabetes diabetes 00:00: Medica l mellitus mellitus 00 Center Hypertensi Hypertensi Disease Active [facility] on [facility]12 [facility] Mild Mild Disease Active [facility] intermitte intermitte 08-12 Pamela kes nt asthma nt asthma 00:00: Medi nella without without 00 Center complicati complicati on on Rheumatoid Rheumatoid Disease Active [facility] arthritis arthritis 08-12 [facility] 00:[facility]: Medical 00 Center CAD CAD Disease Active Overview: [facility] (coronary (coronary 08-12 Formattin L ukes artery artery 00:00: g of this Medical disease) disease) 00 note Center might be different from the original. 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 In back s/p Thoracic Radiation Therapy Pericardia Pericardia Disease Active [facility] l effusion l effusion 3-14 Pamela kes 00:00: Medical 00 Center Hyperglyce Hyperglyce Disease Active U nivers lisset lisset 3 ity of 00:00: [address] Branch [id number] Arthritis Problem Active Co mmon [id number] of knee, Spirit right - [facility] Allergies, Adverse Reactions, Alerts Allergy Allergy Status Severity Reaction(s) Onset Inactive Treating Comm ents Source Name Type Date Date Clinician No Known DA Active [facility] Allergie 6-30 Clear s 00:00: Oliver[place] 00 [facility] Sulfa Drug Active Other - See Unive rs (Sulfona Allergy comments 5-10 ity o f mide 00:00: [place] Antibiot 00 Medical ics) Branch SULFA Drug Active Other-Cmnt Univer s (SULFONA Class 5-10 ity of MIDE 00:00: [place] ANTIBIOT 00 Medical ICS) Branch NO KNOWN Allergy Active [facility] Family History Family Member Diagnosis Comments Start Date Stop Date Source Natural father Hypertension [facility] Natural father Alcohol abuse [facility] Natural father Heart disease [facility] Natural mother Early [facility] Natural sister Hypertension [facility] Natural brother Hypertension [facility] Natural brother Stroke [facility] Social History Social Habit Start Date Stop Date Quantity Comments Source History of [facility] - Tobacco Use [facility] Exposure to 2022-03-29 2022-04-08 Not sure University SARS-CoV-2 00:00:00 20:45:00 [facility] (event) Branch Alcohol intake 2015-08-13 2015-08-13 Current [facility] es 00:00:00 00:00:00 non-drinker of Medical nter alcohol (finding) Tobacco use and 2015-08-03 2015-08-[address] [facility] exposure 00:00:00 00:00:00 [facility] Sex Assigned At [address] [facility] 00:00:00 00:00:00 [facility] Smoking Status Start Date Stop Date Source Never Smoker [facility] Medications Ordered Filled Start Stop Current Ordering Indication Dosage Frequency Signature Comments Components Source Medication Medication Date Date Medication? Clinician (SIG) Name Name traMADoL 2021-05 50mg 50 mg, Univer s (ULTRAM) 06-09 Oral, ONCE ity of tablet 50 04:30: 03:48 NOW, 1 [place] mg 00 :00 dose, On Medical Wed Branch 04/08/22 at 2230, Routine acetaminoph 2022-0 Yes 4647 2{tbl} Take 2 Un irma en-codeine 8-10 tablets by ity of (TYLENOL-CO 00:00: mouth [place] DEINE #3) 00 every 6 Medical 300-30 mg (six) Branch tablet hours as needed for Pain (scale 4-6) or Pain (scale 7-10). Indication s: acute pain acetaminoph 2022-0 Yes 4647 2{tbl} Take 2 Un irma en-codeine 8-10 tablets by ity of (TYLENOL-CO 00:00: mouth [place] DEINE #3) 00 every 6 Medical 300-30 mg (six) Branch tablet hours as needed for Pain (scale 4-6) or Pain (scale 7-10). Indication s: acute pain acetaminoph 2022-0 Yes 4647 2{tbl} Take 2 Un irma en-codeine 8-10 tablets by ity of (TYLENOL-CO 00:00: mouth [place] DEINE #3) 00 every 6 Medical 300-30 mg (six) Branch tablet hours as needed for Pain (scale 4-6) or Pain (scale 7-10). Indication s: acute pain acetaminoph 2022-0 Yes 4647 2{tbl} Take 2 Un irma en-codeine 8-10 tablets by ity of (TYLENOL-CO 00:00: mouth [place] DEINE #3) 00 every 6 Medical 300-30 mg (six) Branch tablet hours as needed for Pain (scale 4-6) or Pain (scale 7-10). Indication s: acute pain acetaminoph 2022-0 Yes 4647 2{tbl} Take 2 Un irma en-codeine 8-10 tablets by ity of (TYLENOL-CO 00:00: mouth [place] DEINE #3) 00 every 6 Medical 300-30 mg (six) Branch tablet hours as needed for Pain (scale 4-6) or Pain (scale 7-10). Indication s: acute pain acetaminoph 2022-0 Yes 4647 2{tbl} Take 2 Un irma en-codeine 8-10 tablets by ity of (TYLENOL-CO 00:00: mouth [place] DEINE #3) 00 every 6 Medical 300-30 mg (six) Branch tablet hours as needed for Pain (scale 4-6) or Pain (scale 7-10). Indication s: acute pain acetaminoph 2021-0 Yes 4647 2{tbl} Take 2 Un irma en-codeine 8-10 tablets by ity of (TYLENOL-CO 00:00: mouth [place] DEINE #3) 00 every 6 Medical 300-30 mg (six) Branch tablet hours as needed for Pain (scale 4-6) or Pain (scale 7-10). Indication s: acute pain acetaminoph 2021-0 Yes 4647 2{tbl} Take 2 Un irma en-codeine 8-10 tablets by ity of (TYLENOL-CO 00:00: mouth [place] DEINE #3) 00 every 6 Medical 300-30 mg (six) Branch tablet hours as needed for Pain (scale 4-6) or Pain (scale 7-10). Indication s: acute pain acetaminoph 0 Yes 4647 2{tbl} Take 2 Un irma en-codeine 8-10 tablets by ity of (TYLENOL-CO 00:00: mouth [place] DEINE #3) 00 every 6 Medical 300-30 mg (six) Branch tablet hours as needed for Pain (scale 4-6) or Pain (scale 7-10). Indication s: acute pain ferrous Yes 325mg Take 325 Unive rs sulfate 325 7-25 mg by ity of mg (65 mg 16:03: mouth [place] iron) 50 daily. Medical tablet Branch diazePAM 5 Yes 5mg Take 5 mg Un irma mg tablet 7-25 by mouth 2 ity of 16:03: (two) [place] 50 times Medical daily as Branch needed. DULoxetine Yes 1{capsu Take 1 Un irma 60 mg CDRS 7-25 le} capsule by ity of 16:03: mouth [place] 50 daily. Medical Branch amitriptyli Yes 50mg Take 50 mg Univers ne 50 mg 7-25 by mouth ity of tablet 16:03: at [place] [address] bedtime. Medical Branch bumetanide Yes 1mg Take 1 mg Un irma 1 mg tablet 7-25 by mouth ity of 16:03: in the [place] [address] morning. Medical Branch ARIPiprazol Yes 2mg Take 2 mg U nivers e 2 mg 7-25 by mouth ity of tablet 16:03: daily. [place] 50 Medical Branch insulin NPH Yes 2U inject 2 Un irma 100 unit/mL 7-25 Units ity of injection 16:03: under the Jad as 50 skin in Medical the Branch morning and 2 Units at noon and 2 Units in the evening. inject before meals. semaglutide Yes .5mg inject 0.5 Univers (OZEMPIC) 7-25 mg under ity of 0.25 mg or 16:03: the skin Jad as 0.5 mg(2 50 weekly. On Medic al mg/1.5 mL) Wednesday Branch PnIj Diclofenac Yes 1{dose} Apply 1 U nivers Sodium 7-25 Dose to ity of (VOLTAREN) 16:03: area(s[place] 1 % gel 50 needed for Medica l Pain Branch (scale 1-3). Pantoprazol Yes 40mg Take 40 mg Univers e 40 mg 7-25 by mouth ity of delayed-rel 16:03: in the [facility] s ease 50 morning. Medical suspension Branch carvediloL Yes 3.125mg Take 3.125 Univers 3.125 mg 7-25 mg by ity of tablet 16:03: mouth in [place] [address] the Medical morning Branch and 3.125 mg in the evening. Take with meals. docusate Yes 100mg Take 100 Univ ers (COLACE) 7-25 mg by ity of 100 mg 16:03: mouth in [place] capsule 50 the Medical morning. Branch allopurinoL Yes 100mg Take 100 U nivers 100 mg 7-25 mg by ity of tablet 16:03: mouth in [place] 50 the Medical morning. Branch cholecalcif Yes 1000U Take 1,000 Univers nneka, 7-25 Units by ity of vitamin D3, 16:03: mouth [place] (VITAMIN 50 the Medical D3) 25 mcg morning. Branc h (1,000 unit) tablet HYDROcodone Yes 1{tbl} Take 1 Un irma -acetaminop 7-25 tablet by ity of hen 5-325 16:03: mouth [place] mg tablet 50 every 4 Medical (four) Branch hours as needed. Acetaminoph Yes 1{capsu Take 1 U nivers en 500 mg 7-25 le} capsule by ity of Cap 16:03: mouth [place] 50 every 6 Medical (six) Branch hours as needed for Pain (scale 1-3). polyethylen Yes 17g Take 17 g U nivers e glycol 7-25 by mouth ity of 3350 16:03: in the [place] (MIRALAX) 50 morning. Medica l 17 Branch gram/dose powder ferrous Yes 325mg Take 325 Unive rs sulfate 325 7-25 mg by ity of mg (65 mg 16:03: mouth [place] iron) 50 daily. Medical tablet Branch diazePAM 5 Yes 5mg Take 5 mg Un irma mg tablet 7-25 by mouth 2 ity of 16:03: (two) [place] 50 times Medical daily as Branch needed. DULoxetine Yes 1{capsu Take 1 Un irma 60 mg CDRS 7-25 le} capsule by ity of 16:03: mouth [place] 50 daily. Medical Branch amitriptyli Yes 50mg Take 50 mg Univers ne 50 mg 7-25 by mouth ity of tablet 16:03: at [place] [address] bedtime. Medical Branch bumetanide Yes 1mg Take 1 mg Un irma 1 mg tablet 7-25 by mouth ity of 16:03: in the [place] [address] morning. Medical Branch ARIPiprazol Yes 2mg Take 2 mg U nivers e 2 mg 7-25 by mouth ity of tablet 16:03: daily. [place] [address] Medical Branch insulin NPH Yes 2U inject 2 Un iram 100 unit/mL 7-25 Units ity of injection 16:03: under the [place] as 50 skin in Medical the Branch morning and 2 Units at noon and 2 Units in the evening. inject before meals. semaglutide Yes .5mg inject 0.5 Univers (OZEMPIC) 7-25 mg under ity of 0.25 mg or 16:03: the skin Jad as 0.5 mg(2 50 weekly. On Medic al mg/1.5 mL) Wednesday Branch PnIj Diclofenac Yes 1{dose} Apply 1 U nivers Sodium 7-25 Dose to ity of (VOLTAREN) 16:03: area(s[place] as [place] 1 % gel 50 needed for Medica l Pain Branch (scale 1-3). Pantoprazol Yes 40mg Take 40 mg Univers e 40 mg 7-25 by mouth ity of delayed-rel 16:03: in the [facility] s ease 50 morning. Medical suspension Branch carvediloL Yes 3.125mg Take 3.125 Univers 3.125 mg 7-25 mg by ity of tablet 16:03: mouth in [place] 50 the Medical morning Branch and 3.125 mg in the evening. Take with meals. docusate Yes 100mg Take 100 Univ ers (COLACE) 7-25 mg by ity of 100 mg 16:03: mouth in [place] capsule 50 the Medical morning. Branch allopurinoL Yes 100mg Take 100 U nivers 100 mg 7-25 mg by ity of tablet 16:03: mouth in [place] 50 the Medical morning. Branch cholecalcif Yes 1000U Take 1,000 Univers nneka, 7-25 Units by ity of vitamin D3, 16:03: mouth in [place] (VITAMIN 50 the Medical D3) 25 mcg morning. Branc h (1,000 unit) tablet HYDROcodone Yes 1{tbl} Take 1 Un irma -acetaminop 7-25 tablet by ity of hen 5-325 16:03: mouth [place] mg tablet 50 every 4 Medical (four) Branch hours as needed. Acetaminoph Yes 1{capsu Take 1 U nivers en 500 mg 7-25 le} capsule by ity of Cap 16:03: mouth [place] 50 every 6 Medical (six) Branch hours as needed for Pain (scale 1-3). polyethylen Yes 17g Take 17 g U nivers e glycol 7-25 by mouth ity of 3350 16:03: in the [place] (MIRALAX) 50 morning. Medica l 17 Branch gram/dose powder ferrous Yes 325mg Take 325 Unive rs sulfate 325 7-25 mg by ity of mg (65 mg 16:03: mouth [place] iron) 50 daily. Medical tablet Branch diazePAM 5 Yes 5mg Take 5 mg Un irma mg tablet 7-25 by mouth 2 ity of 16:03: (two) [place] 50 times Medical daily as Branch needed. DULoxetine Yes 1{capsu Take 1 Un irma 60 mg CDRS 7-25 le} capsule by ity of 16:03: mouth [place] 50 daily. Medical Branch amitriptyli Yes 50mg Take 50 mg Univers ne 50 mg 7-25 by mouth ity of tablet 16:03: at [place] [address] bedtime. Medical Branch bumetanide Yes 1mg Take 1 mg Un irma 1 mg tablet 7-25 by mouth ity of 16:03: in the [place] 50 morning. Medical Branch ARIPiprazol Yes 2mg Take 2 mg U nivers e 2 mg 7-25 by mouth ity of tablet 16:03: daily. [place] [address] Medical Branch insulin NPH Yes 2U inject 2 Un irma 100 unit/mL 7-25 Units ity of injection 16:03: under the [place] 50 skin in Medical the Branch morning and 2 Units at noon and 2 Units in the evening. inject before meals. semaglutide Yes .5mg inject 0.5 Univers (OZEMPIC) 7-25 mg under ity of 0.25 mg or 16:03: the skin Jad as 0.5 mg(2 50 weekly. On Medic al mg/1.5 mL) Wednesday Branch PnIj Diclofenac Yes 1{dose} Apply 1 U nivers Sodium 7-25 Dose to ity of (VOLTAREN) 16:03: area(s) as [place] 1 % gel 50 needed for Medica l Pain Branch (scale 1-3). Pantoprazol Yes 40mg Take 40 mg Univers e 40 mg 7-25 by mouth ity of delayed-rel 16:03: in the [facility] s ease 50 morning. Medical suspension Branch carvediloL Yes 3.125mg Take 3.125 Univers 3.125 mg 7-25 mg by ity of tablet 16:03: mouth in [place] [address] the Medical morning Branch and 3.125 mg in the evening. Take with meals. docusate Yes 100mg Take 100 Univ ers (COLACE) 7-25 mg by ity of 100 mg 16:03: mouth in [facility] 50 the Medical morning. Branch allopurinoL 2022-0 Yes 100mg Take 100 U nivers 100 mg 7-25 mg by ity of tablet 16:03: mouth in [place] 50 the Medical morning. Branch cholecalcif Yes 1000U Take 1,000 Univers nneka, 7-25 Units by ity of vitamin D3, 16:03: mouth in [place] (VITAMIN 50 the Medical D3) 25 mcg morning. Branc h (1,000 unit) tablet HYDROcodone Yes 1{tbl} Take 1 Un irma -acetaminop 7-25 tablet by ity of hen 5-325 16:03: mouth [place] mg tablet 50 every 4 Medical (four) Branch hours as needed. Acetaminoph Yes 1{capsu Take 1 U nivers en 500 mg 7-25 le} capsule by ity of Cap 16:03: mouth [place] 50 every 6 Medical (six) Branch hours as needed for Pain (scale 1-3). polyethylen Yes 17g Take 17 g U nivers e glycol 7-25 by mouth ity of 3350 16:03: in the [place] (MIRALAX) 50 morning. Medica l 17 Branch gram/dose powder ferrous Yes 325mg Take 325 Unive rs sulfate 325 7-25 mg by ity of mg (65 mg 16:03: mouth [place] iron) 50 daily. Medical tablet Branch diazePAM 5 Yes 5mg Take 5 mg Un irma mg tablet 7-25 by mouth 2 ity of 16:03: (two) [place] 50 times Medical daily as Branch needed. DULoxetine Yes 1{capsu Take 1 Un irma 60 mg CDRS 7-25 le} capsule by ity of 16:03: mouth [place] 50 daily. Medical Branch amitriptyli Yes 50mg Take 50 mg Univers ne 50 mg 7-25 by mouth ity of tablet 16:03: at [place] [address] bedtime. Medical Branch bumetanide Yes 1mg Take 1 mg Un irma 1 mg tablet 7-25 by mouth ity of 16:03: in the [place] 50 morning. Medical Branch ARIPiprazol Yes 2mg Take 2 mg U nivers e 2 mg 7-25 by mouth ity of tablet 16:03: daily. [place] [address] Medical Branch insulin NPH Yes 2U inject 2 Un irma 100 unit/mL 7-25 Units ity of injection 16:03: under the [place] 50 skin in Medical the Branch morning and 2 Units at noon and 2 Units in the evening. inject before meals. semaglutide Yes .5mg inject 0.5 Univers (OZEMPIC) 7-25 mg under ity of 0.25 mg or 16:03: the skin [place] 0.5 mg(2 50 weekly. On Medic al mg/1.5 mL) Wednesday Branch PnIj Diclofenac Yes 1{dose} Apply 1 U nivers Sodium 7-25 Dose to ity of (VOLTAREN) 16:03: area(s) as [place] 1 % gel 50 needed for Medica l Pain Branch (scale 1-3). Pantoprazol Yes 40mg Take 40 mg Univers e 40 mg 7-25 by mouth ity of delayed-rel 16:03: in the [facility] s ease 50 morning. Medical suspension Branch carvediloL Yes 3.125mg Take 3.125 Univers 3.125 mg 7-25 mg by ity of tablet 16:03: mouth in [place] 50 the Medical morning Branch and 3.125 mg in the evening. Take with meals. docusate Yes 100mg Take 100 Univ ers (COLACE) 7-25 mg by ity of 100 mg 16:03: mouth in [place] capsule 50 the Medical morning. Branch allopurinoL Yes 100mg Take 100 U nivers 100 mg 7-25 mg by ity of tablet 16:03: mouth in [place] 50 the Medical morning. Branch cholecalcif Yes 1000U Take 1,000 Univers nneka, 7-25 Units by ity of vitamin D3, 16:03: mouth [place] (VITAMIN 50 the Medical D3) 25 mcg morning. Branc h (1,000 unit) tablet HYDROcodone Yes 1{tbl} Take 1 Un irma -acetaminop 7-25 tablet by ity of hen 5-325 16:03: mouth [place] mg tablet 50 every 4 Medical (four) Branch hours as needed. Acetaminoph Yes 1{capsu Take 1 U nivers en 500 mg 7-25 le} capsule by ity of Cap 16:03: mouth [place] 50 every 6 Medical (six) Branch hours as needed for Pain (scale 1-3). polyethylen Yes 17g Take 17 g U nivers e glycol 7-25 by mouth ity of 3350 16:03: in the [place] (MIRALAX) 50 morning. Medica l 17 Branch gram/dose powder ferrous Yes 325mg Take 325 Unive rs sulfate 325 7-25 mg by ity of mg (65 mg 16:03: mouth [place] iron) 50 daily. Medical tablet Branch diazePAM 5 Yes 5mg Take 5 mg Un irma mg tablet 7-25 by mouth 2 ity of 16:03: (two) [place] 50 times Medical daily as Branch needed. DULoxetine Yes 1{capsu Take 1 Un irma 60 mg CDRS 7-25 le} capsule by ity of 16:03: mouth [place] 50 daily. Medical Branch amitriptyli Yes 50mg Take 50 mg Univers ne 50 mg 7-25 by mouth ity of tablet 16:03: at [place] [address] bedtime. Medical Branch bumetanide Yes 1mg Take 1 mg Un irma 1 mg tablet 7-25 by mouth ity of 16:03: in the [place] [address] morning. Medical Branch ARIPiprazol Yes 2mg Take 2 mg U nivers e 2 mg 7-25 by mouth ity of tablet 16:03: daily. [place] [address] Medical Branch insulin NPH Yes 2U inject 2 Un irma 100 unit/mL 7-25 Units ity of injection 16:03: under the [place] 50 skin in Medical the Branch morning and 2 Units at noon and 2 Units in the evening. inject before meals. semaglutide Yes .5mg inject 0.5 Univers (OZEMPIC) 7-25 mg under ity of 0.25 mg or 16:03: the skin [place] 0.5 mg(2 50 weekly. On Medic al mg/1.5 mL) Wednesday Branch PnIj Diclofenac Yes 1{dose} Apply 1 U nivers Sodium 7-25 Dose to ity of (VOLTAREN) 16:03: area(s) as [place] 1 % gel 50 needed for Medica l Pain Branch (scale 1-3). Pantoprazol Yes 40mg Take 40 mg Univers e 40 mg 7-25 by mouth ity of delayed-rel 16:03: in the [facility] s ease 50 morning. Medical suspension Branch carvediloL Yes 3.125mg Take 3.125 Univers 3.125 mg 7-25 mg by ity of tablet 16:03: mouth in [place] 50 the Medical morning Branch and 3.125 mg in the evening. Take with meals. docusate Yes 100mg Take 100 Univ ers (COLACE) 7-25 mg by ity of 100 mg 16:03: mouth in [place] capsule 50 the Medical morning. Branch allopurinoL Yes 100mg Take 100 U nivers 100 mg 7-25 mg by ity of tablet 16:03: mouth in [place] 50 the Medical morning. Branch cholecalcif Yes 1000U Take 1,000 Univers nneka, 7-25 Units by ity of vitamin D3, 16:03: mouth [place] (VITAMIN 50 the Medical D3) 25 mcg morning. Branc h (1,000 unit) tablet HYDROcodone Yes 1{tbl} Take 1 Un irma -acetaminop 7-25 tablet by ity of hen 5-325 16:03: mouth [place] mg tablet 50 every 4 Medical (four) Branch hours as needed. Acetaminoph Yes 1{capsu Take 1 U nivers en 500 mg 7-25 le} capsule by ity of Cap 16:03: mouth [place] 50 every 6 Medical (six) Branch hours as needed for Pain (scale 1-3). polyethylen Yes 17g Take 17 g U nivers e glycol 7-25 by mouth ity of 3350 16:03: in the [place] (MIRALAX) 50 morning. Medica l 17 Branch gram/dose powder ferrous Yes 325mg Take 325 Unive rs sulfate 325 7-25 mg by ity of mg (65 mg 16:03: mouth [place] iron) 50 daily. Medical tablet Branch diazePAM 5 Yes 5mg Take 5 mg Un irma mg tablet 7-25 by mouth 2 ity of 16:03: (two) [place] 50 times Medical daily as Branch needed. DULoxetine Yes 1{capsu Take 1 Un irma 60 mg CDRS 7-25 le} capsule by ity of 16:03: mouth [place] 50 daily. Medical Branch amitriptyli Yes 50mg Take 50 mg [facility] ne 50 mg 7-25 by mouth ity of tablet 16:03: at [place] [address] bedtime. Medical Branch bumetanide Yes 1mg Take 1 mg Un irma 1 mg tablet 7-25 by mouth ity of 16:03: in the [place] [address] morning. Medical Branch ARIPiprazol Yes 2mg Take 2 mg U nivers e 2 mg 7-25 by mouth ity of tablet 16:03: daily. [place] [address] Medical Branch insulin NPH Yes 2U inject 2 Un irma 100 unit/mL 7-25 Units ity of injection 16:03: under the [place] 50 skin in Medical the Branch morning and 2 Units at noon and 2 Units in the evening. inject before meals. semaglutide Yes .5mg inject 0.5 [facility] (OZEMPIC) 7-25 mg under ity of 0.25 mg or 16:03: the skin [place] as 0.5 mg(2 50 weekly. On Medic al mg/1.5 mL) Wednesday Branch PnIj Diclofenac Yes 1{dose} Apply 1 U nivers Sodium 7-25 Dose to ity of (VOLTAREN) 16:03: area(s) as [place] 1 % gel 50 needed for Medica l Pain Branch (scale 1-3). Pantoprazol Yes 40mg Take 40 mg [facility] e 40 mg 7-25 by mouth ity of delayed-rel 16:03: in the [facility] s ease 50 morning. Medical suspension Branch carvediloL Yes 3.125mg Take 3.125 [facility] 3.125 mg 7-25 mg by ity of tablet 16:03: mouth in [place] 50 the Medical morning Branch and 3.125 mg in the evening. Take with meals. docusate Yes 100mg Take 100 Univ ers (COLACE) 7-25 mg by ity of 100 mg 16:03: mouth in [facility] 50 the Medical morning. Branch allopurinoL Yes 100mg Take 100 U nivers 100 mg 7-25 mg by ity of tablet 16:03: mouth in [place] 50 the Medical morning. Branch cholecalcif Yes 1000U Take 1,000 [facility] nneka, 7-25 Units by ity of vitamin D3, 16:03: mouth in [place] (VITAMIN 50 the Medical D3) 25 mcg morning. Branc h (1,000 unit) tablet HYDROcodone Yes 1{tbl} Take 1 Un irma -acetaminop 7-25 tablet by ity of hen 5-325 16:03: mouth [place] mg tablet 50 every 4 Medical (four) Branch hours as needed. Acetaminoph Yes 1{capsu Take 1 U nivers en 500 mg 7-25 le} capsule by ity of Cap 16:03: mouth [place] 50 every 6 Medical (six) Branch hours as needed for Pain (scale 1-3). polyethylen Yes 17g Take 17 g U nivers e glycol 7-25 by mouth ity of 3350 16:03: in the [place] (MIRALAX) 50 morning. Medica l 17 Branch gram/dose powder ferrous Yes 325mg Take 325 Unive rs sulfate 325 7-25 mg by ity of mg (65 mg 16:03: mouth [place] iron) 50 daily. Medical tablet Branch diazePAM 5 Yes 5mg Take 5 mg Un irma mg tablet 7-25 by mouth 2 ity of 16:03: (two) [place] 50 times Medical daily as Branch needed. DULoxetine Yes 1{capsu Take 1 Un irma 60 mg CDRS 7-25 le} capsule by ity of 16:03: mouth [place] 50 daily. Medical Branch amitriptyli Yes 50mg Take 50 mg [facility] ne 50 mg 7-25 by mouth ity of tablet 16:03: at [place] 50 bedtime. Medical Branch bumetanide Yes 1mg Take 1 mg Un irma 1 mg tablet 7-25 by mouth ity of 16:03: in the [place] 50 morning. Medical Branch ARIPiprazol Yes 2mg Take 2 mg U nivers e 2 mg 7-25 by mouth ity of tablet 16:03: daily. [place] [address] Medical Branch insulin NPH Yes 2U inject 2 Un irma 100 unit/mL 7-25 Units ity of injection 16:03: under the [place] 50 skin in Medical the Branch morning and 2 Units at noon and 2 Units in the evening. inject before meals. semaglutide Yes .5mg inject 0.5 [facility] (OZEMPIC) 7-25 mg under ity of 0.25 mg or 16:03: the skin [place] as 0.5 mg(2 50 weekly. On Medic al mg/1.5 mL) Wednesday Branch PnIj Diclofenac Yes 1{dose} Apply 1 U nivers Sodium 7-25 Dose to ity of (VOLTAREN) 16:03: area(s) as [place] 1 % gel 50 needed for Medica l Pain Branch (scale 1-3). Pantoprazol Yes 40mg Take 40 mg [facility] e 40 mg 7-25 by mouth ity of delayed-rel 16:03: in [place] 50 morning. Medical suspension Branch carvediloL Yes 3.125mg Take 3.125 [facility] 3.125 mg 7-25 mg by ity of tablet 16:03: mouth in [place] 50 the Medical morning Branch and 3.125 mg in the evening. Take with meals. docusate Yes 100mg Take 100 Univ ers (COLACE) 7-25 mg by ity of 100 mg 16:03: mouth in [place] capsule 50 the Medical morning. Branch allopurinoL Yes 100mg Take 100 U nivers 100 mg 7-25 mg by ity of tablet 16:03: mouth in [place] 50 the Medical morning. Branch cholecalcif Yes 1000U Take 1,000 [facility] nneka, 7-25 Units by ity of vitamin D3, 16:03: mouth in [place] (VITAMIN 50 the Medical D3) 25 mcg morning. Branc h (1,000 unit) tablet HYDROcodone Yes 1{tbl} Take 1 Un irma -acetaminop 7-25 tablet by ity of hen 5-325 16:03: mouth [place] mg tablet 50 every 4 Medical (four) Branch hours as needed. Acetaminoph Yes 1{capsu Take 1 U nivers en 500 mg 7-25 le} capsule by ity of Cap 16:03: mouth [place] 50 every 6 Medical (six) Branch hours as needed for Pain (scale 1-3). polyethylen Yes 17g Take 17 g U nivers e glycol 7-25 by mouth ity of 3350 16:03: in the [place] (MIRALAX) 50 morning. Medica l 17 Branch gram/dose powder ferrous Yes 325mg Take 325 Unive rs sulfate 325 7-25 mg by ity of mg (65 mg 16:03: mouth [place] iron) 50 daily. Medical tablet Branch diazePAM 5 Yes 5mg Take 5 mg Un irma mg tablet 7-25 by mouth 2 ity of 16:03: (two) [place] 50 times Medical daily as Branch needed. DULoxetine Yes 1{capsu Take 1 Un irma 60 mg CDRS 7-25 le} capsule by ity of 16:03: mouth [place] 50 daily. Medical Branch amitriptyli Yes 50mg Take 50 mg [facility] ne 50 mg 7-25 by mouth ity of tablet 16:03: at [place] [address] bedtime. Medical Branch bumetanide Yes 1mg Take 1 mg Un irma 1 mg tablet 7-25 by mouth ity of 16:03: in the [place] [address] morning. Medical Branch ARIPiprazol Yes 2mg Take 2 mg U nivers e 2 mg 7-25 by mouth ity of tablet 16:03: daily. [place] [address] Medical Branch insulin NPH Yes 2U inject 2 Un irma 100 unit/mL 7-25 Units ity of injection 16:03: under the [place] 50 skin in Medical the Branch morning and 2 Units at noon and 2 Units in the evening. inject before meals. semaglutide Yes .5mg inject 0.5 [facility] (OZEMPIC) 7-25 mg under ity of 0.25 mg or 16:03: the skin [place] 0.5 mg(2 50 weekly. On Medic al mg/1.5 mL) Wednesday Branch PnIj Diclofenac Yes 1{dose} Apply 1 U nivers Sodium 7-25 Dose to ity of (VOLTAREN) 16:03: area(s) as [place] 1 % gel 50 needed for Medica l Pain Branch (scale 1-3). Pantoprazol Yes 40mg Take 40 mg [facility] e 40 mg 7-25 by mouth ity of delayed-rel 16:03: in the [facility] s ease 50 morning. Medical suspension Branch carvediloL Yes 3.125mg Take 3.125 [facility] 3.125 mg 7-25 mg by ity of tablet 16:03: mouth in [place] 50 the Medical morning Branch and 3.125 mg in the evening. Take with meals. docusate Yes 100mg Take 100 Univ ers (COLACE) 7-25 mg by ity of 100 mg 16:03: mouth in [place] capsule 50 the Medical morning. Branch allopurinoL Yes 100mg Take 100 U nivers 100 mg 7-25 mg by ity of tablet 16:03: mouth in [place] 50 the Medical morning. Branch cholecalcif Yes 1000U Take 1,000 [facility] nneka, 7-25 Units by ity of vitamin D3, 16:03: mouth [place] (VITAMIN 50 the Medical D3) 25 mcg morning. Branc h (1,000 unit) tablet HYDROcodone Yes 1{tbl} Take 1 Un irma -acetaminop 7-25 tablet by ity of hen 5-325 16:03: mouth [place] mg tablet 50 every 4 Medical (four) Branch hours as needed. Acetaminoph Yes 1{capsu Take 1 U nivers en 500 mg 7-25 le} capsule by ity of Cap 16:03: mouth [place] 50 every 6 Medical (six) Branch hours as needed for Pain (scale 1-3). polyethylen Yes 17g Take 17 g U nivers e glycol 7-25 by mouth ity of 3350 16:03: in the [place] (MIRALAX) 50 morning. Medica l 17 Branch gram/dose powder ferrous Yes 325mg Take 325 Unive rs sulfate 325 7-25 mg by ity of mg (65 mg 16:03: mouth [place] iron) 50 daily. Medical tablet Branch diazePAM 5 Yes 5mg Take 5 mg Un irma mg tablet 7-25 by mouth 2 ity of 16:03: (two) [place] 50 times Medical daily as Branch needed. DULoxetine Yes 1{capsu Take 1 Un irma 60 mg CDRS 7-25 le} capsule by ity of 16:03: mouth [place] 50 daily. Medical Branch amitriptyli Yes 50mg Take 50 mg [facility] ne 50 mg 7-25 by mouth ity of tablet 16:03: at [place] [address] bedtime. Medical Branch bumetanide Yes 1mg Take 1 mg Un irma 1 mg tablet 7-25 by mouth ity of 16:03: in the [place] [address] morning. Medical Branch ARIPiprazol Yes 2mg Take 2 mg U nivers e 2 mg 7-25 by mouth ity of tablet 16:03: daily. [place] [address] Medical Branch insulin NPH Yes 2U inject 2 Un irma 100 unit/mL 7-25 Units ity of injection 16:03: under the [place] 50 skin in Medical the Branch morning and 2 Units at noon and 2 Units in the evening. inject before meals. semaglutide Yes .5mg inject 0.5 [facility] (OZEMPIC) 7-25 mg under ity of 0.25 mg or 16:03: the skin [place] 0.5 mg(2 50 weekly. On Medic al mg/1.5 mL) Wednesday Branch PnIj Diclofenac Yes 1{dose} Apply 1 U nivers Sodium 7-25 Dose to ity of (VOLTAREN) 16:03: area(s) as [place] 1 % gel 50 needed for Medica l Pain Branch (scale 1-3). Pantoprazol Yes 40mg Take 40 mg [facility] e 40 mg 7-25 by mouth ity of delayed-rel 16:03: in the [place] [address] morning. Medical suspension Branch carvediloL Yes 3.125mg Take 3.125 Univers 3.125 mg 7-25 mg by ity of tablet 16:03: mouth in [place] [address] the Medical morning Branch and 3.125 mg in the evening. Take with meals. docusate Yes 100mg Take 100 Univ ers (COLACE) 7-25 mg by ity of 100 mg 16:03: mouth in [facility] 50 the Medical morning. Branch allopurinoL Yes 100mg Take 100 U nivers 100 mg 7-25 mg by ity of tablet 16:03: mouth in [place] 50 the Medical morning. Branch cholecalcif Yes 1000U Take 1,000 [facility] nneka, 7-25 Units by ity of vitamin D3, 16:03: mouth in [place] (VITAMIN 50 the Medical D3) 25 mcg morning. Branc h (1,000 unit) tablet HYDROcodone Yes 1{tbl} Take 1 Un irma -acetaminop 7-25 tablet by ity of hen 5-325 16:03: mouth [place] mg tablet 50 every 4 Medical (four) Branch hours as needed. Acetaminoph Yes 1{capsu Take 1 U nivers en 500 mg 7-25 le} capsule by ity of Cap 16:03: mouth [place] 50 every 6 Medical (six) Branch hours as needed for Pain (scale 1-3). polyethylen Yes 17g Take 17 g U nivers e glycol 7-25 by mouth ity of 3350 16:03: in the [place] (MIRALAX) 50 morning. Medica l 17 Branch gram/dose powder benzocaine- Yes [id number] 1{lozen Take 1 Univers menthoL 6-15 ge} Lozenge by ity of lozenge 00:00: mouth [place] 00 every 4 Medical (four) Branch hours as needed for Sore throat. magnesium Yes [id number] 400mg Take 1 U nivers oxide 400 6-15 capsule by ity of mg 00:00: mouth [place] magnesium 00 daily. Medical capsule Branch benzocaine- Yes [id number] 1{lozen Take 1 Univers menthoL 6-15 ge} Lozenge by ity of lozenge 00:00: mouth [place] 00 every 4 Medical (four) Branch hours as needed for Sore throat. magnesium Yes [id number] 400mg Take 1 U nivers oxide 400 6-15 capsule by ity of mg 00:00: mouth [place] magnesium 00 daily. Medical capsule Branch benzocaine- Yes [id number] 1{lozen Take 1 Univers menthoL 6-15 ge} Lozenge by ity of lozenge 00:00: mouth [place] 00 every 4 Medical (four) Branch hours as needed for Sore throat. magnesium Yes [id number] 400mg Take 1 U nivers oxide 400 6-15 capsule by ity of mg 00:00: mouth [place] magnesium 00 daily. Medical capsule Branch benzocaine- Yes [id number] 1{lozen Take 1 Univers menthoL 6-15 ge} Lozenge by ity of lozenge 00:00: mouth [place] 00 every 4 Medical (four) Branch hours as needed for Sore throat. magnesium 0 Yes [id number] 400mg Take 1 U nivers oxide 400 6-15 capsule by ity of mg 00:00: mouth [place] magnesium 00 daily. Medical capsule Branch benzocaine- Yes [id number] 1{lozen Take 1 Univers menthoL 6-15 ge} Lozenge by ity of lozenge 00:00: mouth [place] 00 every 4 Medical (four) Branch hours as needed for Sore throat. magnesium Yes [id number] 400mg Take 1 U nivers oxide 400 6-15 capsule by ity of mg 00:00: mouth [place] magnesium 00 daily. Medical capsule Branch benzocaine- Yes [id number] 1{lozen Take 1 Univers menthoL 6-15 ge} Lozenge by ity of lozenge 00:00: mouth [place] 00 every 4 Medical (four) Branch hours as needed for Sore throat. magnesium Yes [id number] 400mg Take 1 U nivers oxide 400 6-15 capsule by ity of mg 00:00: mouth [place] magnesium 00 daily. Medical capsule Branch benzocaine- Yes [id number] 1{lozen Take 1 Univers menthoL 6-15 ge} Lozenge by ity of lozenge 00:00: mouth [place] 00 every 4 Medical (four) Branch hours as needed for Sore throat. magnesium 0 Yes [id number] 400mg Take 1 U nivers oxide 400 6-15 capsule by ity of mg 00:00: mouth [place] magnesium 00 daily. Medical capsule Branch benzocaine- Yes [id number] 1{lozen Take 1 Univers menthoL 6-15 ge} Lozenge by ity of lozenge 00:00: mouth [place] 00 every 4 Medical (four) Branch hours as needed for Sore throat. magnesium 0 Yes [id number] 400mg Take 1 U nivers oxide 400 6-15 capsule by ity of mg 00:00: mouth [place] magnesium 00 daily. Medical capsule Branch benzocaine- Yes [id number] 1{lozen Take 1 [facility] menthoL 6-15 ge} Lozenge by ity of lozenge 00:00: mouth [place] 00 every 4 Medical (four) Branch hours as needed for Sore throat. magnesium Yes [id number] 400mg Take 1 U nivers oxide 400 6-15 capsule by ity of mg 00:00: mouth [place] magnesium 00 daily. Medical capsule Branch metFORMIN Yes 1000mg Take 1,[address] [facility] (GLUCOPHAGE 3-29 mg by [facility] ) 1000 MG 15:36: mouth 2 Medic al tablet 54 (two) Center times daily with breakfast and dinner. omeprazole 0 Yes 20mg QD Take [address] (PRILOSEC) 3-29 by mouth [facility] 20 MG 15:36: daily. Medical capsule 54 Center ferrous Yes 325mg Take 325 [facility] sulfate 325 3-29 [facility] (65 FE) MG 15:36: mouth Medica l tablet 54 daily with Center breakfast. cyanocobala Yes 1000ug QD Take 1,[address] [facility] min 1000 3-29 mcg by [facility] MCG tablet 15:36: mouth Medica l 54 daily. Center aspirin 81 0 Yes 81mg QD Take [address] MG EC 3-29 by mouth [facility] tablet 15:36: daily. Medical 54 Center cyclobenzap 0 Yes 10mg Take [address] [facility] rine 3-29 by mouth 2 [facility] (FLEXERIL) 15:36: (two) Medica l 10 MG 54 times Center tablet daily as needed for Muscle spasms. simvastatin 2016-0 Yes 20mg QD Take [address] [facility] (ZOCOR) 20 3-29 by mouth [facility] MG tablet 15:36: nightly. Medi nella 54 Center metFORMIN 2016-0 Yes 1000mg Take 1,[address] [facility] (GLUCOPHAGE 3-29 mg by [facility] ) 1000 MG 15:36: mouth 2 Medic al tablet 54 (two) Center times daily with breakfast and dinner. omeprazole 2016-0 Yes 20mg QD Take [address] (PRILOSEC) 3-29 by mouth [facility] 20 MG 15:36: daily. Medical capsule 54 [place] ferrous 2016-0 Yes 325mg Take 325 [facility] sulfate 325 3-29 mg by [facility] (65 FE) MG 15:36: mouth Medica l tablet 54 daily with Center breakfast. cyanocobala 2016-0 Yes 1000ug QD Take 1,[address] [facility] min 1000 3-29 mcg by [facility] MCG tablet 15:36: mouth Medica l 54 daily. [place] aspirin 81 2016-0 Yes 81mg QD Take [address] MG EC 3-29 by mouth [facility] tablet 15:36: daily. [address] cyclobenzap 2016-0 Yes 10mg Take [address] [facility] rine 3-29 by mouth 2 [facility] (FLEXERIL) 15:36: (two) Medica l 10 MG 54 times Center tablet daily as needed for Muscle spasms. simvastatin 2016-0 Yes 20mg QD Take [address] [facility] (ZOCOR) 20 3-29 by mouth [facility] MG tablet 15:36: nightly. [address] metFORMIN 2016-0 Yes 1000mg Take 1,[address] [facility] (GLUCOPHAGE 3-29 mg by [facility] ) 1000 MG 15:36: mouth 2 Medic al tablet 54 (two) Center times daily with breakfast and dinner. omeprazole 2016-0 Yes 20mg QD Take [address] (PRILOSEC) 3-29 by mouth [facility] 20 MG 15:36: daily. [facility] 54 [place] ferrous 2016-0 Yes 325mg Take 325 [facility] sulfate 325 3-29 mg by [facility] (65 FE) MG 15:36: mouth Medica l tablet 54 daily with Center breakfast. cyanocobala 2016-0 Yes 1000ug QD Take 1,[address] [facility] min 1000 3-29 mcg by [facility] MCG tablet 15:36: mouth Medica l 54 daily. [place] aspirin 81 2016-0 Yes 81mg QD Take [address] MG EC 3-29 by mouth [facility] tablet 15:36: daily. [address] cyclobenzap 2016-0 Yes 10mg Take [address] [facility] rine 3-29 by mouth 2 [facility] (FLEXERIL) 15:36: (two) Medica l 10 MG 54 times Center tablet daily as needed for Muscle spasms. simvastatin 2016-0 Yes 20mg QD Take [address] [facility] (ZOCOR) 20 3-29 by mouth [facility] MG tablet 15:36: nightly. [place] [address] Center insulin Yes To use 30 [facility] detemir 3-20 units q am [facility] (LEVEMIR 00:00: and 20 Medical FLEXTOUCH) 00 units q 9 Cent er 100 unit/mL pm. (3 mL) InPn injection insulin Yes To use 12 [facility] lispro 3-20 to 36 [facility] (HUMALOG 00:00: units Medical KWIKPEN) 00 three Center 100 unit/mL times a InPn day by sliding scale. BD Yes Use as [facility] Ultra-Fine 3-20 directed. [facility] Meli 00:00: Dispense Medical Insulin Pen 00 as Center [place] 4 written, mm x 32 G do not substitute . Brand medically necessary. To use 6 a day. insulin Yes To use 30 [facility] detemir 3-20 units q am [facility] (LEVEMIR 00:00: and 20 Medical FLEXTOUCH) 00 units q 9 Cent er 100 unit/mL pm. (3 mL) InPn injection insulin Yes To use 12 [facility] lispro 3-20 to 36 [facility] (HUMALOG 00:00: units Medical KWIKPEN) 00 three Center 100 unit/mL times a InPn day by sliding scale. BD Yes Use as [facility] Ultra-Fine 3-20 directed. Luke s Meli 00:00: Dispense Medical Insulin Pen 00 as Center [place] 4 written, mm x 32 G do not substitute . Brand medically necessary. To use 6 a day. insulin Yes To use 30 [facility] detemir 3-20 units q am [facility] (LEVEMIR 00:00: and 20 Medical FLEXTOUCH) 00 units q 9 Cent er 100 unit/mL pm. (3 mL) InPn injection insulin Yes To use 12 [facility] lispro 3-20 to 36 [facility] (HUMALOG 00:00: units Medical KWIKPEN) 00 three Center 100 unit/mL times a InPn day by sliding scale. BD Yes Use as [facility] Ultra-Fine 3-20 directed. Luke s Meli 00:00: Dispense Medical Insulin Pen 00 as Center [place] 4 written, mm x 32 G do not substitute . Brand medically necessary. To use 6 a day. PROAIR HFA 2016-0 Yes 8.5g Inhale 8.[address] 90 3-07 g by mouth [facility] mcg/actuati 00:00: via Medica l on inhaler [address] needed Inhale two puffs by mouth every 4-6 hours as needed. PROAIR HFA Yes 8.5g Inhale 8.[address] 90 3-07 g by mouth [facility] mcg/actuati 00:00: via Medica l on inhaler [address] needed Inhale two puffs by mouth every 4-6 hours as needed. PROAIR HFA Yes 8.5g Inhale 8.[address] 90 3-07 g by mouth [facility] mcg/actuati 00:00: via Medica l on inhaler [address] needed Inhale two puffs by mouth every 4-6 hours as needed. Insulin 0 Yes [id number] Use as Univ ers [place], 5-11 directed ity of Disposable, 00:00: daily [place] (BD 00 Medical ULTRAFINE Branch III MINI PEN) 31 x 3/16 " Ndle Insulin 0 Yes [id number] Use as Univ ers [place], 5-11 directed ity of Disposable, 00:00: daily [place] (BD 00 Medical ULTRAFINE Branch III MINI PEN) 31 x 3/16 " Ndle Insulin 0 Yes [id number] Use as Univ ers [place], 5-11 directed ity of Disposable, 00:00: daily [place] (BD 00 Medical ULTRAFINE Branch III MINI PEN) 31 x 3/16 " Ndle Insulin 0 Yes [id number] Use as Univ ers [place], 5-11 directed ity of Disposable, 00:00: daily [place] (BD 00 Medical ULTRAFINE Branch III MINI PEN) 31 x 3/16 " Ndle Insulin 0 Yes [id number] Use as Univ ers [place], 5-11 directed ity of Disposable, 00:00: daily [place] (BD 00 Medical ULTRAFINE Branch III MINI PEN) 31 x 3/16 " Ndle Insulin 0 Yes [id number] Use as Univ ers [place], 5-11 directed ity of Disposable, 00:00: daily [place] (BD 00 Medical ULTRAFINE Branch III MINI PEN) 31 x 3/16 " Ndle Insulin 0 Yes [id number] Use as Univ ers [place], 5-11 directed ity of Disposable, 00:00: daily [place] (BD 00 Medical ULTRAFINE Branch III MINI PEN) 31 x 3/16 " Ndle Insulin 2014-0 Yes [id number] Use as Univ ers [place], 5-11 directed ity of Disposable, 00:00: daily [place] (BD 00 Medical ULTRAFINE Branch III MINI PEN) 31 x 3/16 " Ndle Insulin 2014-0 Yes [id number] Use as Univ ers [place], 5-11 directed ity of Disposable, 00:00: daily [place] (BD 00 Medical ULTRAFINE Branch III MINI PEN) 31 x 3/16 " Ndle aspirin 81 2014-0 Yes 81mg Take 1 Tab U nivers mg chewable 3-29 by mouth ity of tablet 00:00: daily. [place] Medical Branch vitamin 2014-0 Yes 1000ug Take 1 Tab Un irma B-12 3-29 by mouth ity of (CYANOCOBAL 00:00: [place]. [place] [facility] 1,000 00 Medical mcg tablet Branch aspirin 81 0 Yes 81mg Take 1 Tab U nivers mg chewable 3-29 by mouth ity of tablet 00:00: daily. [place] Medical Branch vitamin 2014-0 Yes 1000ug Take 1 Tab Un irma B-12 3-29 by mouth ity of (CYANOCOBAL 00:00: daily. [place] [facility] 1,000 00 Medical mcg tablet Branch aspirin 81 0 Yes 81mg Take 1 Tab U nivers mg chewable 3-29 by mouth ity of tablet 00:00: daily. [place] Medical Branch vitamin 2015-0 Yes 1000ug Take 1 Tab Un irma B-12 3-29 by mouth ity of (CYANOCOBAL 00:00: daily. [place] [facility] 1,000 00 Medical mcg tablet Branch aspirin 81 0 Yes 81mg Take 1 Tab U nivers mg chewable 3-29 by mouth ity of tablet 00:00: daily. [place] Medical Branch vitamin 2015-0 Yes 1000ug Take 1 Tab Un irma B-12 3-29 by mouth ity of (CYANOCOBAL 00:00: daily. [place] [facility] 1,000 00 Medical mcg tablet Branch aspirin 81 2014-0 Yes 81mg Take 1 Tab U nivers mg chewable 3-29 by mouth ity of tablet 00:00: daily. [place] Medical Branch vitamin 2015-0 Yes 1000ug Take 1 Tab Un irma B-12 3-29 by mouth ity of (CYANOCOBAL 00:00: daily. [place] [facility]) 1,000 00 Medical mcg tablet Branch aspirin 81 Yes 81mg Take 1 Tab U nivers mg chewable 3-29 by mouth ity of tablet 00:00: daily. [place] Medical Branch vitamin Yes 1000ug Take 1 Tab Un irma B-12 3-29 by mouth ity of (CYANOCOBAL 00:00: daily. [place] [facility]) 1,000 00 Medical mcg tablet Branch aspirin 81 Yes 81mg Take 1 Tab U nivers mg chewable 3-29 by mouth ity of tablet 00:00: daily. [place] Medical Branch vitamin Yes 1000ug Take 1 Tab Un irma B-12 3-29 by mouth ity of (CYANOCOBAL 00:00: daily. [place] [facility] 1,000 00 Medical mcg tablet Branch aspirin 81 Yes 81mg Take 1 Tab U nivers mg chewable 3-29 by mouth ity of tablet 00:00: daily. [place] Medical Branch vitamin Yes 1000ug Take 1 Tab Un irma B-12 3-29 by mouth ity of (CYANOCOBAL 00:00: daily. [place] [facility] 1,000 00 Medical mcg tablet Branch aspirin 81 Yes 81mg Take 1 Tab U nivers mg chewable 3-29 by mouth ity of tablet 00:00: daily. [place] Medical Branch vitamin Yes 1000ug Take 1 Tab Un irma B-12 3-29 by mouth ity of (CYANOCOBAL 00:00: daily. [place] [facility] 1,000 00 Medical mcg tablet Branch albuterol albuterol No albuterol [place] sulfate HFA sulfate HFA sulfate Family 90 90 HFA 90 Practic mcg/actuati mcg/actuati mcg/actuat e on aerosol on aerosol ion inhaler inhaler aerosol inhaler alprazolam alprazolam No 1 alprazolam [facility] 0.25 mg 0.25 mg 0.25 mg Family tablet Take tablet Take tablet Practic 1 tablet as 1 tablet as Take 1 e needed by needed by tablet as oral route oral route needed by for 30 for 30 oral route days. days. for 30 days. amiodarone amiodarone No amiodarone [facility] 200 mg 200 mg 200 [...] Insulin BD Insulin No BD Insulin [facility] Syringe Syringe Syringe [facility] Ultra-Fine Ultra-Fine Ultra-Fine [facility] 0.3 mL 31 0.3 mL 31 0.3 mL 31 e gauge x gauge x gauge x /16" 16" 09/29" bumetanide bumetanide No .5 Q1D bumetanide [facility] 2 mg tablet 2 mg [...] acid No 1 Q1D folic acid [facility] 1 mg tablet 1 mg tablet 1 mg F amily Take 1 Take 1 tablet [facility] tablet tablet Take 1 e every day every day tablet by oral by oral every day route. route. by oral route. lisinopril lisinopril No 1 Q1D lisinopril [facility] 5 mg tablet 5 mg tablet 5 mg F amily Take 1 Take 1 tablet [facility] tablet tablet Take 1 e every day every day tablet by oral by oral every day route for route for by oral 90 days. 90 days. route for 90 days. magnesium magnesium No 1 Q1D magnesium [facility] 400 mg (as 400 mg (as 400 mg (as Family magnesium magnesium magnesium Pract[facility] oxide) oxide) oxide) e tablet Take tablet Take tablet 1 tablet 1 tablet Take 1 every day every day tablet by oral by oral every day route. route. by oral route. multivitami multivitami No multivitam [facility] n 1 po qd n 1 po qd in 1 po qd Family [facility] e Novolin N Novolin N No Novolin N [place] Flexpen Flexpen Flexpen Family Pract[facility] e omeprazole omeprazole No 1capsul Q1D omeprazole [facility] 40 mg 40 mg e(s) [...] Pacerone Pacerone No 1 Q12H Pacerone [place] unno 400 mg 400 mg 400 mg Family tablet Take tablet Take tablet Practic 1 tablet 1 tablet Take 1 e every 12 every 12 tablet hours by hours by every 12 oral route oral route hours by for 7 days. for 7 days. oral route for 7 days. paroxetine paroxetine No 1 Q1D paroxetine [facility] 20 mg 20 mg 20 mg Family tablet Take tablet Take tablet Practic 1 tablet 1 tablet Take 1 e every day every day tablet by oral by oral every day route for route for by oral 30 days. 30 days. route for 30 days. sertraline sertraline No sertraline [facility] 50 mg 50 mg 50 mg Family tablet tablet tablet Practic e simvastatin simvastatin No 1 Q1D simvastati [facility] 20 mg 20 mg n 20 mg Family tablet Take tablet Take tablet Practic 1 tablet 1 tablet Take 1 e every day every day tablet by oral by oral every day route. route. by oral route. tramadol 50 tramadol 50 No tramadol [place] mg tablet mg tablet 50 mg Fami ly tablet Practic e Bumetanide Bumetanide No Bumetanide Methotrexat Methotrexat No Methotrexa e Sodium e Sodium te Sodium Colchicine Colchicine No Colchicine Doxepin HCl Doxepin HCl No Doxepin HCl Allopurinol Allopurinol No Allopurino l Folic Acid Folic Acid No Folic Acid Vitamin D Vitamin D No Vitamin D (Ergocalcif (Ergocalcif (Ergocalci nneka) nneka) ferol) Atorvastati Atorvastati No Atorvastat n Calcium n Calcium in Calcium DULoxetine DULoxetine No DULoxetine HCl HCl HCl Ozempic Ozempic No Ozempic (0.25 or (0.25 or (0.25 or 0.5 0.5 0.5 MG/DOSE) MG/DOSE) MG/DOSE) diazePAM diazePAM No diazePAM Methotrexat Methotrexat No Methotrexa e Sodium e Sodium te Sodium Aspir-81 Aspir-81 No Aspir-81 Amitriptyli Amitriptyli No 1{table QD Amitriptyl ne HCl 50 ne HCl 50 t_at_be ine HCl 50 MG MG dtime} MG Allopurinol Allopurinol No Allopurino l traMADol traMADol No traMADol HCl HCl HCl ARIPiprazol ARIPiprazol No ARIPiprazo e e le Vitamin B Vitamin B No 1{table QD Vitamin B 12 500 MCG 12 500 MCG t} 12 500 MCG Colchicine Colchicine No Colchicine Atorvastati Atorvastati No Atorvastat n Calcium n Calcium in Calcium Acetaminoph Acetaminoph No Acetaminop en-Codeine en-Codeine hen-Codein #3 #3 e #3 PARoxetine PARoxetine No PARoxetine HCl HCl HCl Albuterol Albuterol No Albuterol Sulfate HFA Sulfate HFA Sulfate HFA Doxepin HCl Doxepin HCl No Doxepin HCl Omeprazole Omeprazole No Omeprazole iron iron No iron Bumetanide Bumetanide No Bumetanide Amitriptyli Amitriptyli No Amitriptyl ne HCl ne HCl ine HCl tiZANidine tiZANidine No tiZANidine HCl HCl HCl Lisinopril Lisinopril No Lisinopril Folic Acid Folic Acid No Folic Acid Vitamin D Vitamin D No Vitamin D (Ergocalcif (Ergocalcif (Ergocalci nneka) nneka) ferol) HYDROcodone HYDROcodone No HYDROcodon -Acetaminop -Acetaminop e-Acetamin hen hen ophen Nitroglycer Nitroglycer No Nitroglyce in in rin DULoxetine DULoxetine No DULoxetine HCl HCl HCl Ozempic Ozempic No Ozempic (0.25 or (0.25 or (0.25 or 0.5 0.5 0.5 MG/DOSE) MG/DOSE) MG/DOSE) Folic Acid Folic Acid No Folic Acid Methotrexat Methotrexat No Methotrexa e Sodium e Sodium te Sodium HYDROcodone HYDROcodone No HYDROcodon -Acetaminop -Acetaminop e-Acetamin hen hen ophen Albuterol Albuterol No Albuterol Sulfate HFA Sulfate HFA Sulfate HFA Amitriptyli Amitriptyli No Amitriptyl ne HCl ne HCl ine HCl Omeprazole Omeprazole No Omeprazole Acetaminoph Acetaminoph No Acetaminop en-Codeine en-Codeine hen-Codein #3 #3 e #3 Bumetanide Bumetanide No Bumetanide Vitamin B Vitamin B No 1{table QD Vitamin B 12 500 MCG 12 500 MCG t} 12 500 MCG Amitriptyli Amitriptyli No 1{table QD Amitriptyl ne HCl 50 ne HCl 50 t_at_be ine HCl 50 MG MG dtime} MG Lisinopril Lisinopril No Lisinopril PARoxetine PARoxetine No PARoxetine HCl HCl HCl DULoxetine DULoxetine No DULoxetine HCl HCl HCl Nitroglycer Nitroglycer No Nitroglyce in in rin iron iron No iron Atorvastati Atorvastati No Atorvastat n Calcium n Calcium in Calcium Vitamin D Vitamin D No Vitamin D (Ergocalcif (Ergocalcif (Ergocalci nneka) nneka) ferol) Colchicine Colchicine No Colchicine tiZANidine tiZANidine No tiZANidine HCl HCl HCl traMADol traMADol No traMADol HCl HCl HCl Doxepin HCl Doxepin HCl No Doxepin HCl ARIPiprazol ARIPiprazol No ARIPiprazo e e le Allopurinol Allopurinol No Allopurino l diazePAM diazePAM No diazePAM Aspir-81 Aspir-81 No Aspir-81 Amitriptyli Amitriptyli No 1{table QD Amitriptyl ne HCl 50 ne HCl 50 t_at_be ine HCl 50 MG MG dtime} MG diazePAM diazePAM No diazePAM traMADol traMADol No traMADol HCl HCl HCl Aspir-81 Aspir-81 No Aspir-81 Bumetanide Bumetanide No Bumetanide iron iron No iron Colchicine Colchicine No Colchicine Vitamin B Vitamin B No 1{table QD Vitamin B 12 500 MCG 12 500 MCG t} 12 500 MCG Nitroglycer Nitroglycer No Nitroglyce in in rin PARoxetine PARoxetine No PARoxetine HCl HCl HCl Ozempic Ozempic No Ozempic (0.25 or (0.25 or (0.25 or 0.5 0.5 0.5 MG/DOSE) MG/DOSE) MG/DOSE) Atorvastati Atorvastati No Atorvastat n Calcium n Calcium in Calcium Folic Acid Folic Acid No Folic Acid ARIPiprazol ARIPiprazol No ARIPiprazo e e le Albuterol Albuterol No Albuterol Sulfate HFA Sulfate HFA Sulfate HFA tiZANidine tiZANidine No tiZANidine HCl HCl HCl Doxepin HCl Doxepin HCl No Doxepin HCl Allopurinol Allopurinol No Allopurino l Omeprazole Omeprazole No Omeprazole Amitriptyli Amitriptyli No Amitriptyl ne HCl ne HCl ine HCl Methotrexat Methotrexat No Methotrexa e Sodium e Sodium te Sodium Lisinopril Lisinopril No Lisinopril Vitamin D Vitamin D No Vitamin D (Ergocalcif (Ergocalcif (Ergocalci nneka) nneka) ferol) Acetaminoph Acetaminoph No Acetaminop en-Codeine en-Codeine hen-Codein #3 #3 e #3 HYDROcodone HYDROcodone No HYDROcodon -Acetaminop -Acetaminop e-Acetamin hen hen ophen DULoxetine DULoxetine No DULoxetine HCl HCl HCl Amitriptyli Amitriptyli No 1{table QD Amitriptyl ne HCl 50 ne HCl 50 t_at_be ine HCl 50 MG MG dtime} MG diazePAM diazePAM No diazePAM traMADol traMADol No traMADol HCl HCl HCl Aspir-81 Aspir-81 No Aspir-81 Bumetanide Bumetanide No Bumetanide iron iron No iron Colchicine Colchicine No Colchicine Vitamin B Vitamin B No 1{table QD Vitamin B 12 500 MCG 12 500 MCG t} 12 500 MCG Nitroglycer Nitroglycer No Nitroglyce in in rin PARoxetine PARoxetine No PARoxetine HCl HCl HCl Ozempic Ozempic No Ozempic (0.25 or (0.25 or (0.25 or 0.5 0.5 0.5 MG/DOSE) MG/DOSE) MG/DOSE) Atorvastati Atorvastati No Atorvastat n Calcium n Calcium in Calcium Folic Acid Folic Acid No Folic Acid ARIPiprazol ARIPiprazol No ARIPiprazo e e le Albuterol Albuterol No Albuterol Sulfate HFA Sulfate HFA Sulfate HFA tiZANidine tiZANidine No tiZANidine HCl HCl HCl Doxepin HCl Doxepin HCl No Doxepin HCl Allopurinol Allopurinol No Allopurino l Omeprazole Omeprazole No Omeprazole Amitriptyli Amitriptyli No Amitriptyl ne HCl ne HCl ine HCl Methotrexat Methotrexat No Methotrexa e Sodium e Sodium te Sodium Lisinopril Lisinopril No Lisinopril Vitamin D Vitamin D No Vitamin D (Ergocalcif (Ergocalcif (Ergocalci nneka) nneka) ferol) Acetaminoph Acetaminoph No Acetaminop en-Codeine en-Codeine hen-Codein #3 #3 e #3 Doxepin HCl Doxepin HCl No Doxepin HCl HYDROcodone HYDROcodone No HYDROcodon -Acetaminop -Acetaminop e-Acetamin hen hen ophen DULoxetine DULoxetine No DULoxetine HCl HCl HCl Amitriptyli Amitriptyli No 1{table QD Amitriptyl ne HCl 50 ne HCl 50 t_at_be ine HCl 50 MG MG dtime} MG diazePAM diazePAM No diazePAM traMADol traMADol No traMADol HCl HCl HCl iron iron No iron Aspir-81 Aspir-81 No Aspir-81 Bumetanide Bumetanide No Bumetanide iron iron No iron Colchicine Colchicine No Colchicine Vitamin B Vitamin B No 1{table QD Vitamin B 12 500 MCG 12 500 MCG t} 12 500 MCG Nitroglycer Nitroglycer No Nitroglyce in in rin PARoxetine PARoxetine No PARoxetine HCl HCl HCl Ozempic Ozempic No Ozempic (0.25 or (0.25 or (0.25 or 0.5 0.5 0.5 MG/DOSE) MG/DOSE) MG/DOSE) Atorvastati Atorvastati No Atorvastat n Calcium n Calcium in Calcium Folic Acid Folic Acid No Folic Acid HYDROcodone HYDROcodone No HYDROcodon -Acetaminop -Acetaminop e-Acetamin hen hen ophen ARIPiprazol ARIPiprazol No ARIPiprazo e e le Albuterol Albuterol No Albuterol Sulfate HFA Sulfate HFA Sulfate HFA tiZANidine tiZANidine No tiZANidine HCl HCl HCl Doxepin HCl Doxepin HCl No Doxepin HCl Allopurinol Allopurinol No Allopurino l Omeprazole Omeprazole No Omeprazole Amitriptyli Amitriptyli No Amitriptyl ne HCl ne HCl ine HCl Methotrexat Methotrexat No Methotrexa e Sodium e Sodium te Sodium Lisinopril Lisinopril No Lisinopril Vitamin D Vitamin D No Vitamin D (Ergocalcif (Ergocalcif (Ergocalci nneka) nneka) ferol) Aspir-81 Aspir-81 No Aspir-81 Acetaminoph Acetaminoph No Acetaminop en-Codeine en-Codeine hen-Codein #3 #3 e #3 HYDROcodone HYDROcodone No HYDROcodon -Acetaminop -Acetaminop e-Acetamin hen hen ophen DULoxetine DULoxetine No DULoxetine HCl HCl HCl ARIPiprazol ARIPiprazol No ARIPiprazo e e le Amitriptyli Amitriptyli No 1{table QD Amitriptyl ne HCl 50 ne HCl 50 t_at_be ine HCl 50 MG MG dtime} MG Allopurinol Allopurinol No Allopurino l Vitamin B Vitamin B No 1{table QD Vitamin B 12 500 MCG 12 500 MCG t} 12 500 MCG diazePAM diazePAM No diazePAM Amitriptyli Amitriptyli No Amitriptyl ne HCl ne HCl ine HCl PARoxetine PARoxetine No PARoxetine HCl HCl HCl DULoxetine DULoxetine No DULoxetine HCl HCl HCl Acetaminoph Acetaminoph No Acetaminop en-Codeine en-Codeine hen-Codein #3 #3 e #3 traMADol traMADol No traMADol HCl HCl HCl Atorvastati Atorvastati No Atorvastat n Calcium n Calcium in Calcium Folic Acid Folic Acid No Folic Acid Colchicine Colchicine No Colchicine Bumetanide Bumetanide No Bumetanide Nitroglycer Nitroglycer No Nitroglyce in in rin Vitamin D Vitamin D No Vitamin D (Ergocalcif (Ergocalcif (Ergocalci nnkea) nneka) ferol) Lisinopril Lisinopril No Lisinopril Albuterol Albuterol No Albuterol Sulfate HFA Sulfate HFA Sulfate HFA Methotrexat Methotrexat No Methotrexa e Sodium e Sodium te Sodium tiZANidine tiZANidine No tiZANidine HCl HCl HCl Ozempic Ozempic No Ozempic (0.25 or (0.25 or (0.25 or 0.5 0.5 0.5 MG/DOSE) MG/DOSE) MG/DOSE) Omeprazole Omeprazole No Omeprazole Doxepin HCl Doxepin HCl No Doxepin HCl iron iron No iron HYDROcodone HYDROcodone No HYDROcodon -Acetaminop -Acetaminop e-Acetamin hen hen ophen Aspir-81 Aspir-81 No Aspir-81 ARIPiprazol ARIPiprazol No ARIPiprazo e e le Amitriptyli Amitriptyli No 1{table QD Amitriptyl ne HCl 50 ne HCl 50 t_at_be ine HCl 50 MG MG dtime} MG Allopurinol Allopurinol No Allopurino l Vitamin B Vitamin B No 1{table QD Vitamin B 12 500 MCG 12 500 MCG t} 12 500 MCG diazePAM diazePAM No diazePAM Amitriptyli Amitriptyli No Amitriptyl ne HCl ne HCl ine HCl PARoxetine PARoxetine No PARoxetine HCl HCl HCl DULoxetine DULoxetine No DULoxetine HCl HCl HCl Acetaminoph Acetaminoph No Acetaminop en-Codeine en-Codeine hen-Codein #3 #3 e #3 traMADol traMADol No traMADol HCl HCl HCl Atorvastati Atorvastati No Atorvastat n Calcium n Calcium in Calcium Folic Acid Folic Acid No Folic Acid Colchicine Colchicine No Colchicine Bumetanide Bumetanide No Bumetanide Nitroglycer Nitroglycer No Nitroglyce in in rin Vitamin D Vitamin D No Vitamin D (Ergocalcif (Ergocalcif (Ergocalci nneka) nneka) ferol) Lisinopril Lisinopril No Lisinopril Albuterol Albuterol No Albuterol Sulfate HFA Sulfate HFA Sulfate HFA Methotrexat Methotrexat No Methotrexa e Sodium e Sodium te Sodium tiZANidine tiZANidine No tiZANidine HCl HCl HCl Ozempic Ozempic No Ozempic (0.25 or (0.25 or (0.25 or 0.5 0.5 0.5 MG/DOSE) MG/DOSE) MG/DOSE) Omeprazole Omeprazole No Omeprazole Nitroglycer Nitroglycer No Nitroglyce in in rin Amitriptyli Amitriptyli No 1{table QD Amitriptyl ne HCl 50 ne HCl 50 t_at_be ine HCl 50 MG MG dtime} MG HYDROcodone HYDROcodone No HYDROcodon -Acetaminop -Acetaminop e-Acetamin hen hen ophen Vitamin B Vitamin B No 1{table QD Vitamin B 12 500 MCG 12 500 MCG t} 12 500 MCG iron iron No iron Omeprazole Omeprazole No Omeprazole Aspir-81 Aspir-81 No Aspir-81 Albuterol Albuterol No Albuterol Sulfate HFA Sulfate HFA Sulfate HFA ARIPiprazol ARIPiprazol No ARIPiprazo e e le Acetaminoph Acetaminoph No Acetaminop en-Codeine en-Codeine hen-Codein #3 #3 e #3 Amitriptyli Amitriptyli No Amitriptyl ne HCl ne HCl ine HCl Ozempic Ozempic No Ozempic (0.25 or (0.25 or (0.25 or 0.5 0.5 0.5 MG/DOSE) MG/DOSE) MG/DOSE) PARoxetine PARoxetine No PARoxetine HCl HCl HCl traMADol traMADol No traMADol HCl HCl HCl Lisinopril Lisinopril No Lisinopril tiZANidine tiZANidine No tiZANidine HCl HCl HCl diazePAM diazePAM No diazePAM Immunizations Ordered Immunization Filled Immunization Date Status Commen ts Source Name Name Hyalgan 20 mg Hyalgan 20 mg 2021-01-21 Completed [facility] Hyalgan 20 mg Hyalgan 20 mg 2021-01-21 Completed [facility]00 [facility] Hyalgan 20 mg Hyalgan 20 mg 2021-01-21 Completed [facility] 08:50:00 [facility] Hyalgan 20 mg Hyalgan 20 mg 2021-01-14 Completed [facility] 09:17:00 [facility] Hyalgan 20 mg Hyalgan 20 mg 2021-01-14 Completed [facility] 09:17:00 [facility] Hyalgan 20 mg Hyalgan 20 mg 2021-01-14 Completed [facility] 09:17:00 [facility] Hyalgan 20 mg Hyalgan 20 mg 2021-01-14 Completed [facility] 09:17:00 [facility] Bupivicaine Meeker Bupivicaine Meeker 2021-01-07 [facility]pleted [facility]00 [facility] Kenalog Kenalog 2021-01-07 Completed [facility] - (Triamcinolone) (Triamcinolone) 13:41:00 [facility] Bupivicaine Meeker Bupivicaine Meeker 2021-01-07 Completed [facility] 13:41:00 [facility] Kenalog Kenalog 2021-01-07 Completed [facility] (Triamcinolone) (Triamcinolone) 13:41:00 [facility] Bupivicaine Meeker Bupivicaine Meeker 2021-01-07 Completed [facility] 13:41:00 [facility] Kenalog Kenalog 2021-01-07 Completed [facility] (Triamcinolone) (Triamcinolone) 13:41:00 [facility] Bupivicaine Meeker Bupivicaine Meeker 2021-01-07 Completed [facility] 13:41:00 [facility] Kenalog Kenalog 2021-01-07 Completed [facility] (Triamcinolone) (Triamcinolone) 13:41:00 [facility] Bupivicaine Meeker Bupivicaine Meeker 2021-01-07 Completed [facility] 13:41:00 [facility] Kenalog Kenalog 2021-01-07 Completed [facility] (Triamcinolone) (Triamcinolone) 13:41:00 [facility] Hyalgan 20 mg Hyalgan 20 mg 2021-01-07 Completed [facility] 13:40:00 [facility] Hyalgan 20 mg Hyalgan 20 mg 2021-01-07 Completed [facility] 13:40:00 [facility] Hyalgan 20 mg Hyalgan 20 mg 2021-01-07 Completed [facility] 13:40:00 [facility] Hyalgan 20 mg Hyalgan 20 mg 2021-01-07 Completed [facility] 13:40:00 [facility] Hyalgan 20 mg Hyalgan 20 mg 2021-01-07 Completed [facility] 13:[facility]:00 [facility] influenza, influenza, 2019-03-09 Completed [facility] unspecified unspecified 00:00:00 Practice formulation formulation Meningococcal 2014-08-24 Completed [facility] Polysaccharide 00:00:00 [place] [facility] (groups A, C, Y and Branc h W-135) conjugate vaccine (MCV4P) Heamophilus Influenza 2014-08-24 Completed Uni versity of B 00:00:00 [facility] Meningococcal 2014-08-24 Completed [facility] Polysaccharide 00:00:00 [place] [facility] (groups A, C, Y and Branc h W-135) conjugate vaccine (MCV4P) Heamophilus Influenza 2014-08-24 Completed Uni versity of B 00:00:00 [facility] Meningococcal 2014-08-24 Completed [facility] Polysaccharide 00:00:00 [place] [facility] (groups A, C, Y and Branc h W-135) conjugate vaccine (MCV4P) Heamophilus Influenza 2014-08-24 Completed Uni versity of B 00:00:00 [facility] Meningococcal 2014-08-24 Completed [facility] Polysaccharide 00:00:00 [place] [facility] (groups A, C, Y and Branc h W-135) conjugate vaccine (MCV4P) Heamophilus Influenza 2014-08-24 Completed Uni versity of B 00:00:00 [facility] Meningococcal 2014-08-24 Completed [facility] Polysaccharide 00:00:00 [place] [facility] (groups A, C, Y and Branc h W-135) conjugate vaccine (MCV4P) Heamophilus Influenza 2014-08-24 Completed Uni versity of B 00:00:00 [facility] Meningococcal 2014-08-24 Completed [facility] Polysaccharide 00:00:00 [place] [facility] (groups A, C, Y and Branc h W-135) conjugate vaccine (MCV4P) Heamophilus Influenza 2014-08-24 Completed Uni versity of B 00:00:00 [facility] Meningococcal 2014-08-24 Completed [facility] Polysaccharide 00:00:00 [place] [facility] (groups A, C, Y and Branc h W-135) conjugate vaccine (MCV4P) Heamophilus Influenza 2014-08-24 Completed Uni versity of B 00:00:00 [facility] Meningococcal 2014-08-24 Completed [facility] Polysaccharide 00:00:00 [facility] nella (groups A, C, Y and Branc h W-135) conjugate vaccine (MCV4P) Heamophilus Influenza 2014-08-24 Completed Uni versity of B 00:00:00 [facility] Meningococcal 2014-08-24 Completed [facility] Polysaccharide 00:00:00 [facility] nella (groups A, C, Y and Branc h W-135) conjugate vaccine (MCV4P) Heamophilus Influenza 2014-08-24 Completed Uni versity of B 00:00:00 [facility] Pneumococcal 2014-08-12 Completed [facility] o f Polysaccharide, 00:00:00 [facility] ical PPSV23 (PNEUMOVAX) Branch Influenza Virus 2014-08-12 Completed Universit y of Vaccine Quad IM 3+ 00:00:00 [facility] Pneumococcal 2014-08-12 Completed University o f Polysaccharide, 00:00:00 [facility] ical PPSV23 (PNEUMOVAX) Branch Influenza Virus 2014-08-12 Completed Universit y of Vaccine Quad IM 3+ 00:00:00 [facility] Pneumococcal 2014-08-12 Completed University o f Polysaccharide, 00:00:00 [facility] ical PPSV23 (PNEUMOVAX) Branch Influenza Virus 2014-08-12 Completed Universit y of Vaccine Quad IM 3+ 00:00:00 [facility] Pneumococcal 2014-08-12 Completed University o f Polysaccharide, 00:00:00 [facility] ical PPSV23 (PNEUMOVAX) Branch Influenza Virus 2014-08-12 Completed Universit y of Vaccine Quad IM 3+ 00:00:00 [facility] Pneumococcal 2014-08-12 Completed [facility] o f Polysaccharide, 00:00:00 [place] [facility] ical PPSV23 (PNEUMOVAX) Branch Influenza Virus 2014-08-12 Completed [facility]it y of Vaccine Quad IM 3+ 00:00:00 [facility] Pneumococcal 2014-08-12 Completed University o f Polysaccharide, 00:00:00 [place] [facility] PPSV23 (PNEUMOVAX) Branch Influenza Virus 2014-08-12 Completed [facility]it [facility] of Vaccine Quad IM 3+ 00:00:00 [facility] Pneumococcal 2014-08-12 Completed [facility] o f Polysaccharide, 00:00:00 [place] [facility] PPSV23 (PNEUMOVAX) Branch Influenza Virus 2014-08-12 Completed Universit y of Vaccine Quad IM 3+ 00:00:00 [facility] Pneumococcal 2014-08-12 Completed [facility] f Polysaccharide, 00:00:00 [place] [facility] ical PPSV23 (PNEUMOVAX) Branch Influenza Virus 2014-08-12 Completed Universit y of Vaccine Quad IM 3+ 00:00:00 [facility] Pneumococcal 2014-08-12 Completed University o f Polysaccharide, 00:00:00 [place] [facility] PPSV23 (PNEUMOVAX) Branch Influenza Virus 2014-08-12 Completed Universit y of Vaccine Quad IM 3+ 00:00:00 [facility] Vital Signs Vital Name Observation Time Observation Value Comments Source Systolic blood 2022-04-09 04:30:00 138 mm[Hg] [facility] Diastolic blood 2022-04-09 04:30:00 97 mm[Hg] [facility] Heart rate 2022-04-09 04:30:00 60 /min [facility] Respiratory rate 2022-04-09 04:30:00 17 /min [facility] Oxygen saturation in 2022-04-09 04:30:00 100 /min [facility] Arterial blood by [facility] Pulse oximetry [place] Body temperature 2022-04-09 02:00:00 36.78 Nora [facility] Body height 2022-01-23 16:36:00 172.7 cm [facility] Body weight 2022-01-23 16:36:00 91.173 kg [facility] BMI 2022-01-23 16:36:00 30.56 kg/m2 [facility] height 2021-01-21 08:30:00 68 [in_i] [facility] weight 2021-01-21 08:30:00 226 [lb_av] [facility] temperature 2021-01-21 08:30:00 97.7 [degF] [facility] bmi 2021-01-21 08:30:00 34.36 kg/m2 [facility] blood pressure 2021-01-21 08:30:00 130 mm[Hg] [facility] - systolic [facility] blood pressure 2021-01-21 08:30:00 84 mm[Hg] [facility] - diastolic [facility] height 2021-01-14 08:30:00 68 [in_i] [facility] weight 2021-01-14 08:30:00 226 [lb_av] [facility] temperature 2021-01-14 08:30:00 97.5 [degF] [facility] bmi 2021-01-14 08:30:00 34.36 kg/m2 [facility] blood pressure 2021-01-14 08:30:00 126 mm[Hg] [facility] - systolic [facility] blood pressure 2021-01-14 08:30:00 74 mm[Hg] [facility] - diastolic [facility] height 2021-01-07 13:00:00 68 [in_i] [facility] weight 2021-01-07 13:00:00 226 [lb_av] [facility] temperature 2021-01-07 13:00:00 98.7 [degF] [facility] bmi 2021-01-07 13:00:00 34.36 kg/m2 [facility] blood pressure 2021-01-07 13:00:00 132 mm[Hg] [facility] - systolic [facility] blood pressure 2021-01-07 13:00:00 84 mm[Hg] [facility] - diastolic [facility] height 2021-01-02 13:30:00 68 [in_i] [facility] weight 2021-01-02 13:30:00 226 [lb_av] [facility] bmi 2021-01-02 13:30:00 34.36 kg/m2 [facility] blood pressure 2021-01-02 13:30:00 132 mm[Hg] [facility] - systolic [facility] blood pressure 2021-01-02 13:30:00 86 mm[Hg] [facility] - diastolic [facility] BP Diastolic 2019-08-07 00:00:00 76 mm[Hg] [facility] Height 2019-08-07 00:00:00 68.5 [in_i] [facility] BP Systolic 2019-08-07 00:00:00 120 mm[Hg] [facility] BP Diastolic 2019-07-17 00:00:00 70 mm[Hg] [facility] Height 2019-07-17 00:00:00 68.5 [in_i] [facility] BMI (Body Mass 2019-07-17 00:00:00 34.5 kg/m2 [facility] Systolic 2019-07-17 00:00:00 126 mm[Hg] [facility] Body Weight 2019-07-17 00:00:00 230 [lb_av] [facility] Procedures Procedure Date / Time Performing Clinician Source Performed XR CHEST 2 VW 2022-04-09 03:59:00 Vincent Rader [facility] TROPONIN I 2022-04-09 03:35:00 Vincent Rader [facility] COMP. METABOLIC PANEL 2022-04-09 03:35:00 Vincent Rader [facility] ([id number]) [facility] CBC WITH DIFF 2022-04-09 03:35:00 Vincent Rader [facility] RAPID INFLUENZA A/B 2022-04-09 03:35:00 Vincent Rader [facility] N-TERMINAL PRO-BNP 2022-04-09 03:35:00 Vincent Rader [facility] NOTICE OF PRIVACY 2022-04-09 02:38:07 Doctor Unassigned, No [facility] PRACTICES Name [facility] CONSENT/REFUSAL FOR 2022-04-09 02:37:20 Doctor Unassigned, No [facility] DIAGNOSIS AND TREATMENT Name [facility] AUTHORIZATION FOR 2022-03-12 05:01:00 Doctor Unassigned, No [facility] Name [facility] - OTHER 2022-01-14 05:01:00 Doctor Unassigned, No [facility] Care Planned Activity Planned Date Details Comments Source Diagnostic Test Pending 2019-08-07 glucose, Vill age Family 00:00:00 fingerstick, Practice blood [code = glucose, fingerstick, blood] Diagnostic Test Pending 2019-08-07 BMP, serum or Raya nuno Family 00:00:00 plasma [code = Practice BMP, serum or plasma] Instructions [facility] Encounters Start End Encounter Admission Attending Care Care Encounter Source Date/Time Date/Time Type Type Clinicians Facility Department ID 2022-04-16 Inpatient [facility] Med [id number] [facility] 02:42:53 [facility] 2022-04-16 Inpatient SMITA HINTON [facility] Med [id number] [facility] 02:35:02 [facility] 2021-12-18 Outpatient 3 [id number] ENC[facility] REF [id number] [facility] 08:29:43 [facility] [place] 2021-12-10 Outpatient 3 [id number] ENCPL REF [id number] [facility] 12:33:31 0727 [facility] [place] 2021-12-09 Outpatient 3 [id number] ENCPL REF [id number] [facility] 14:43:46 0726 [facility] [place] 2021-06-17 Outpatient IBNS IBNS [id number]- Artemio 12:27:28 [id number] Arron 2021-06-11 Outpatient [facility] [id number] Common 13:40:33 [id number] [place] [facility] 2019-09-07 Outpatient HEMATPOUR, [facility] CAR 7501 [facility] 10:28:52 АЛЕКСАНДР 2022-04-08 2022-04-08 Emergency X AUFDERHEIDE [facility] ERT [id number] Univers 20:54:00 22:51:00 , VINCENT muhammad [facility] 2022-04-08 2022-04-08 Emergency Aufderheide [facility] 1.2.840.114 [id number] Univers 20:54:00 22:51:00 , Vincent GONZALEZ 350.1.13.10 i ty of [place] [phone] [facility] [address] 2022-04-08 2022-04-08 Orders Doctor YANDEL 1.2.840.114 [id number] Univers 00:00:00 00:00:00 Only Unassigned, ANIL 350.1.13.10 ity of [place] [facility] 4.2.7.2.686 Jad as [phone] [facility] [address] 2022-03-12 2022-03-12 Orders Doctor YANDEL 1.2.840.114 [id number] Univers 00:00:00 00:00:00 Only Unassigned, ANIL 350.1.13.10 ity of [place] [facility] 4.2.7.2.686 Jad as [phone] [address] 2022-02-12 2022-02-12 Telephone Ab [facility] 1.2.840.114 [id number] Univers 00:00:00 00:00:00 Benitez Collazo [employer] 350.1.13.10 it y of [place] 4.2.7.2.686 Jad as CANDACE?BLEA [phone] Ky dimitri GARCIA [address] [place] [address] OFFICE [facility] 2022-02-03 2022-02-03 Telephone Ab [facility] 1.2.840.114 [id number] Univers 00:00:00 00:00:00 Benitez Collazo HEALTH 350.1.13.10 it y of [place] 4.2.7.2.686 Jad as CANDACE?BLEA [phone] Ky dimitri GARCIA [address] MEDICAL OFFICE [facility] 2022-01-26 2022-01-26 Telephone Ab [facility] 1.2.840.114 [id number] Univers 00:00:00 00:00:00 Benitez Collazo HEALTH 350.1.13.10 it y of [place] 4.2.7.2.686 Jad as CANDACE?BLEA [phone] Ky dimitri GARCIA [address] [place] [address] OFFICE [facility] 2022-01-26 2022-01-26 Telephone [facility] 1.2.384.050 [id number] Univers 00:00:00 00:00:00 [facility] HEALTH 350.1.13.10 it y of [place] 4.2.7.2.686 Jad as CANDACE?BLEA [phone] Ky dimitri GARCIA 198 [facility] OFFICE [facility] 2022-01-23 2022-01-23 Out[facility] [id number] Univers 11:15:00 12:22:27 GLENNY ity [facility] 2022-01-23 2022-01-23 Office [facility] 1.2.840.114 [id number] Univers 11:15:00 12:22:27 Visit [facility] 350.1.13.10 it y of [place] 4.2.7.2.686 Jad as CANDACE?BLEA [phone] Ky dimitri GARCIA 198 [facility] OFFICE [facility] 2022-01-23 2022-01-23 Outpatient [facility] [id number] Univers 11:15:00 12:22:27 GLENNY ity [facility] 2022-01-14 2022-01-14 Orders Doctor YANDEL 1.2.840.114 [id number] Univers 00:00:00 00:00:00 Only Unassigned, ANIL 350.1.13.10 ity of [place] [facility] 4.2.7.2.686 Jad as [phone] [address] 2021-12-30 2021-12-30 Telephone [facility] 1.2.840.114 [id number] Univers 00:00:00 00:00:00 [facility] HEALTH 350.1.13.10 it y of [place] 4.2.7.2.686 Jad as CANDACE?BLEA [phone] Ky dimitri GARCIA [address] [facility] 2021-12-25 2021-12-25 Telephone [facility] 1.2.840.114 [id number] Univers 00:00:00 00:00:00 Benitez L HEALTH 350.1.13.10 it y of [place] 4.2.7.2.686 Jad as CANDACE?BLEA [phone] Ky dimitri GARCIA [address] [place] [address] OFFICE [facility] 2021-12-25 2021-12-25 Telephone [facility] 1.2.840.114 [id number] Univers 00:00:00 00:00:00 Benitez L HEALTH 350.1.13.10 it y of [place] 4.2.7.2.686 Jad as CANDACE?BLEA [phone] Ky dimitri GARCIA [address] [place] [address] 2021-12-23 2021-12-23 Telephone [facility] 1.2.840.114 [id number] Univers 00:00:00 00:00:00 Benitez L HEALTH 350.1.13.10 it y of [place] 4.2.7.2.686 Jad as CANDACE?BLEA [phone] Ky dimitri GARCIA [address] [place] [address] 2021-12-22 2021-12-22 Outpatient Day [facility] [id number] Univers 15:40:00 23:59:00 GLENNY ity [facility] 2021-12-22 2021-12-22 Outpatient Day [facility] [id number] Univers 15:15:00 16:18:41 GLENNY ity [facility] 2021-12-22 2021-12-22 Office [facility] 1.2.840.114 [id number] Univers 15:15:00 16:18:41 Visit [facility] HEALTH 350.1.13.10 it y of [place] 4.2.7.2.686 Jad as CANDACE?BLEA [phone] Ky dimitri GARCIA [address] [place] [address] 2021-12-22 2021-12-22 Telephone [facility] 1.2.840.114 [id number] Univers 00:00:00 00:00:00 Benitez L HEALTH 350.1.13.10 it y of [place] 4.2.7.2.686 Jad as CANDACE?BLEA [phone] Ky dimitri GARCIA [address] [place] [address] 2021-12-09 2021-12-09 Telephone [facility] 1.2.840.114 [id number] Univers 00:00:00 00:00:00 Benitez L HEALTH 350.1.13.10 it y of [place] 4.2.7.2.686 Jad as CANDACE?BLEA [phone] Ky dical KNEY [address] MEDICAL OFFICE BUILDING 2021-12-08 2021-12-08 Outpatient [facility] SOR [id number] Univers 10:44:00 16:02:00 BENITEZ ity of [facility] 2021-12-08 2021-12-08 Hospital [facility] 1.2.840.114 [id number] Univers 10:44:00 16:02:00 Encounter Benitez GONZALEZ 350.1.13.10 ity of [place]ICAL [phone] [facility] [address] 2021-12-08 2021-12-08 Surgery [facility] 1.2.072.099 [id number] Univers 12:45:00 14:29:00 Benitez GONZALEZ 350.1.13.10 i ty of [place].2.7.2.[place]GICAL [id number] [facility] [address] 2021-12-08 2021-12-08 Orders Doctor YANDEL 1.2.840.114 [id number] Univers 00:00:00 00:00:00 Only Unassigned, ANIL 350.1.13.10 ity of [place] [facility] 4.2.7.2.686 Jad as [phone] [facility] [address] 2021-12-05 2021-12-05 Employment Specialist/Program Manager Stephane, Adc Lab Main [facility] 1.2.8 40.114 [id number] Univers 09:15:00 09:30:00 Visit Benitez Berger 350.1.13.10 ity of [place].2.7.2.[place] [phone] [facility] 353 [facility] 2021-12-05 2021-12-05 Laboratory Only, Adc Test [facility] 1.2.840. 114 [id number] Univers 08:45:00 09:00:00 Only Benitez Berger 350.1.13.10 ity of [place].2.7.2.[place] [phone] [facility] [address] 2021-12-05 2021-12-05 Outpatient R AB [facility] [id number] Univers 09:34:20 08:59:00 BENITEZ ity of [facility] 2021-12-05 2021-12-05 [facility] Ab [facility] 1.2.840.114 [id number] Univers 08:30:00 08:59:00 Encounter Benitez GONZALEZ 350.1.13.10 ity of [place] 4.2.7.2.[place] [phone] [facility] [address] 2021-12-02 2021-12-02 Prep For Ab [facility] 1.2.840.114 [id number] Univers 00:00:00 00:00:00 Surgery Benitez Collazo HEALTH 350.1.13.10 it y of [facility] [place] 4.2.7.2.686 Jad as CANDACE?BLEA [phone] Ky dimitri [address] MEDICAL OFFICE [facility] 2021-12-01 2021-12-01 Telephone Ab [facility] 1.2.840.114 [id number] Univers 00:00:00 00:00:00 Benitez Collazo HEALTH 350.1.13.10 it y of [place] 4.2.7.2.686 Jad as CANDACE?BLEA [phone] Ky dimitri GARCIA [address] [place] [address] MEDICAL OFFICE [facility] 2021-12-01 2021-12-01 Orders Doctor YANDEL 1.2.840.114 [id number] Univers 00:00:00 00:00:00 Only Unassigned, ANIL 350.1.13.10 ity of [place] [facility] 4.2.7.2.686 Jad as [phone] [facility] [address] 2021-11-28 2021-11-28 Telephone Ab [facility] 1.2.840.114 [id number] Univers 00:00:00 00:00:00 Benitez Collazo HEALTH 350.1.13.10 it y of [place] 4.2.7.2.686 Jad as CANDACE?BLEA [phone] Ky dimitri GARCIA [address] [place] [address] MEDICAL OFFICE [facility] 2021-11-25 2021-11-25 Telephone Ab [facility] 1.2.840.114 [id number] Univers 00:00:00 00:00:00 Benitez [facility] 350.1.13.10 it y of [place] 4.2.7.2.686 Jad as CANDACE?BLEA [phone] Ky dimitri [address] MEDICAL OFFICE BUILDING 2021-11-25 2021-11-25 Orders Doctor YANDEL 1.2.840.114 [id number] Univers 00:00:00 00:00:00 Only Unassigned, ANIL 350.1.13.10 [facility] 4.2.7.2.686 Jad as [phone] [address] 2021-11-24 2021-11-24 Out[facility] [id number] Univers 14:45:00 15:38:44 [facility] 2021-11-24 2021-11-24 Office [facility] 1.2.166.203 [id number] Univers 14:45:00 15:38:44 Visit [facility] 350.1.13.10 it y of [place] 4.2.7.2.686 Jad as CANDACE?BLEA [phone] [address] OFFICE [facility] 2021-11-24 2021-11-24 Outpatient R YOUNG [facility] [id number] Univers 10:15:00 10:15:00 [facility] 2021-11-13 2021-11-13 Emergency [id number] [facility] 07:53:00 11:37:00 Oluwadolapo [facility] 2021-11-13 2021-11-13 Emergency EM Oyebadejo, HCACL [facility] G1029 747-2 [facility] 07:53:00 07:53:00 Oluwadolapo [id number] [facility] 2021-11-06 2021-11-06 Transition NAGI Narayanan 1.2.840.114 [id number] Univers 00:00:00 00:00:00 of Care Alina GRIERY 350.1.13.10 i ty of [place]2.7.2.[place] [id number] [facility] [address] 2021-10-26 2021-11-05 Inpatient X HANNAH [facility] [place] [id number] Univers 11:31:00 15:25:00 DIANE itheidi [facility] 2021-10-26 2021-11-05 Hospital Mathew Raines [facility] 1.2.840.1 14 [id number] Univers 11:31:00 15:25:00 Encounter Kandy Sanchez 350.1.13.10 ity of [place] 4.2.7.2.686 [facility] [phone] [facility] [address] 2021-09-26 2021-09-26 Office [facility] 1.2.840.114 [id number] Univers 10:30:00 11:00:00 Visit [facility] 350.1.13.10 it y of [facility] [place] 4.2.7.2.686 Jad as CANDACE?BLEA [phone] Ky dimitri GARCIA [address] MEDICAL OFFICE [facility] 2021-09-26 2021-09-26 Outpatient R [facility]NG [facility] [id number] Univers 10:30:00 10:30:00 [facility] 2021-09-26 2021-09-26 Outpatient R [facility] [id number] Univers 10:30:00 10:30:00 [facility] 2021-09-15 2021-09-15 Outpatient R ALEXSANDER [facility] [id number] Univers 12:56:02 23:59:00 VERONICA ity o f [facility] 2021-09-15 2021-09-15 [facility] 1.2.328.090 [id number] Univers 12:56:02 23:59:00 Encounter [facility] 350.1.13.10 ity of [place] 4.2.7.2.686 Jad as CANDACE?BLEA [phone] Ky dimitri GARCIA [address] MEDICAL OFFICE [facility] 2021-09-15 2021-09-15 Urgent [facility] 1.2.840.114 [id number] Univers 12:40:00 13:03:01 Care Veronica HEALTH 350.1.13.10 i ty of [facility] [place] 4.2.7.2.686 Jad as CANDACE?BLEA [phone] Ky dimitri GARCIA 370 [facility] OFFICE [facility] 2021-07-25 2021-07-25 Outpatient Day [facility] [id number] Univers 10:15:00 10:15:00 GLENNY ity [facility] 2021-07-24 2021-07-24 Telephone [facility] 1.2.488.629 [id number] Univers 00:00:00 00:00:00 Glenny S LISA 350.1.13.10 i ty of [facility] [place].2.7.2.[place] [phone] Ky dimitri KRAMER 198 [facility] 2021-07-21 2021-07-21 Telephone [facility] 1.2.485.349 [id number] Univers 00:00:00 00:00:00 Glenny S HEALTH 350.1.13.10 it y of [facility] [place] 4.2.7.2.686 Jad as CANDACE?BLEA [phone] Ky dimitri GARCIA [address] [facility] 2021-07-18 2021-07-18 Orders Doctor YANDEL 1.2.840.114 [id number] Univers 00:00:00 00:00:00 Only Unassigned, ANIL 350.1.13.10 ity of [place] [facility] 4.2.7.2.686 Jad as [phone] [address] 2021-07-07 2021-07-07 Outpatient Day [facility] [id number] Univers 14:45:00 15:42:55 GLENNY ity [facility] 2021-06-30 2021-06-30 Outpatient Day [facility] [id number] Univers 16:00:00 16:00:00 GLENNY ity [facility] 2021-06-27 2021-06-27 Orders Doctor YANDEL 1.2.840.114 [id number] Univers 00:00:00 00:00:00 Only Unassigned, ANIL 350.1.13.10 ity of [place] [facility] 4.2.7.2.686 Jad as [phone] [facility] [address] 2021-06-12 2021-06-12 Telephone [facility] 1.2.041.076 [id number] Univers 00:00:00 00:00:00 Glenny S HEALTH 350.1.13.10 it y of [place] 4.2.7.2.686 Jad as CANDACE?BLEA [phone] Ky dimitri GARCIA [address] MEDICAL OFFICE [facility] 2021-06-11 2021-06-11 Telephone [facility] 1.2.645.095 [id number] Univers 00:00:00 00:00:00 Glenny S HEALTH 350.1.13.10 it y of [facility] [place] 4.2.7.2.686 Jad as CANDACE?BLEA [phone] Ky dimitri GARCIA 198 [facility] OFFICE [facility] 2021-06-06 2021-06-06 Outpatient [facility] [id number] Univers 08:45:00 09:27:46 [facility] 2021-06-06 2021-06-06 Office [facility] 1.2.840.114 [id number] Univers 08:45:00 09:00:00 Visit Glenny S HEALTH 350.1.13.10 it y of [place] 4.2.7.2.686 Jad as CANDACE?BLEA [phone] Ky dimitri GARCIA [address] [place] [address] OFFICE [facility] 2021-06-02 2021-06-02 Emergency [facility] ERT [id number] Univers 14:15:00 19:32:00 RADHA [facility] 2021-06-02 2021-06-02 Emergency X NICOLASA, [facility] ERT [id number] Univers 14:15:00 19:32:00 RADHA [facility] 2021-06-02 2021-06-02 Emergency [facility] 1.2.012.227 [id number] Univers 14:15:00 19:32:00 Radha GONZALEZ 350.1.13.10 ity of [place]2.7.2.[place] [phone] [facility] [address] 2021-05-28 2021-05-28 Outpatient Davar_P VFP VFP [id number] [facility] 04:30:00 04:30:00 Family Practic e 2021-05-26 2021-05-26 Outpatient Day [facility] [id number] Univers 15:15:00 23:59:00 GLENYN ity [facility] 2021-05-26 2021-05-26 Hospital [facility] 1.2.840.114 [id number] Univers 15:15:00 23:59:00 Encounter Glenny Vizcaino [facility] 350.1.13.10 ity of [place] 4.2.7.2.686 Jad as CANDACE?BLEA [phone] Ky dimitri GARCIA 809 [facility] OFFICE [facility] 2021-05-26 2021-05-26 Outpatient Day [facility] [id number] Univers 15:15:00 16:33:32 [facility] 2021-05-26 2021-05-26 Office [facility] 1.2.840.114 [id number] Univers 15:15:00 15:30:00 Visit Glenny Vizcaino [facility] 350.1.13.10 it y of [facility] [place] 4.2.7.2.686 Jad as CANDACE?BLEA [phone] Ky dimitri GARCIA 198 [facility] OFFICE [facility] 2021-05-26 2021-05-26 Orders Doctor HUMPHRIES 1.2.840.114 [id number] Univers 00:00:00 00:00:00 Only Unassigned, ANIL 350.1.13.10 ity of [place] [facility] 4.2.7.2.686 Jad as [phone] [address] 2021-05-15 2021-05-15 Orders Doctor YANDEL 1.2.840.114 [id number] Univers 00:00:00 00:00:00 Only Unassigned, ANIL 350.1.13.10 ity of [place] [facility] 4.2.7.2.686 Jad as [phone] [address] 2021-05-13 2021-05-13 Telephone [facility] 1.2.840.114 [id number] Univers 00:00:00 00:00:00 [facility] HEALTH 350.1.13.10 it y of [facility] [place] 4.2.7.2.686 Jad as CANDACE?BLEA [phone] Ky dimitri GARCIA [address] [place] [address] MEDICAL OFFICE BUILDING 2021-05-12 2021-05-12 Outpatient R YOUNG [facility] SOR [id number] Univers 07:12:00 16:55:00 GLENNY ity of [facility] 2021-05-12 2021-05-12 Hospital Benitez Berger [facility] 1.2.840 .114 [id number] Univers 07:12:00 16:55:00 Encounter Glenny Vidal S [place] 350.1.13.10 ity of [place].7.2.[place]ICAL [id number] [facility] [address] 2021-05-12 2021-05-12 Surgery Ab [facility] 1.2.519.193 [id number] Univers 09:00:00 11:18:00 Benitez GONZALEZ 350.1.13.10 i ty of [place] 4.2.7.2.[place]GICAL [id number] [facility] [address] 2021-05-12 2021-05-12 Orders Doctor HUMPHRIES 1.2.840.114 [id number] Univers 00:00:00 00:00:00 Only Unassigned, ANIL 350.1.13.10 ity of [place] [facility] 4.2.7.2.686 Jad as [phone] [facility] [address] 2021-05-09 2021-05-09 Laboratory Only, Adc Test [facility] 1.2.840. 114 [id number] Univers 09:45:00 10:00:00 Only Aldo Bustos 350.1.13.10 ity of [place].2.7.2.[place] [id number] [facility] [address] 2021-05-09 2021-05-09 Outpatient R [facility] [id number] Univers 09:45:00 09:45:00 ALDO ity of [facility] 2021-05-09 2021-05-09 Orders Doctor HUMPHRIES 1.2.840.114 [id number] Univers 00:00:00 00:00:00 Only Unassigned, ANIL 350.1.13.10 ity of [place] [facility] 4.2.7.2.686 Jad as [phone] [facility] [address] 2021-05-08 2021-05-08 Outpatient [facility] [id number] Univers 10:11:52 23:59:00 BENITEZ ity of [facility] 2021-05-08 2021-05-08 Hospital [facility] 1.2.840.114 [id number] Univers 10:11:52 23:59:00 Encounter Benitez GONZALEZ 350.1.13.10 ity of [facility] 4.2.7.2.[place] [phone] [facility] [address] 2021-05-08 2021-05-08 [facility] 1.2.840.114 [id number] Univers 10:11:07 23:59:00 Encounter Benitez GONZALEZ 350.1.13.10 ity of [facility] 4.2.7.2.[place] [id number] [facility] [address] 2021-05-08 2021-05-08 Employment Specialist/Program Manager Stephane, Adc Lab Main [facility] 1.2.8 40.114 [id number] Univers 10:00:00 10:15:00 Visit Benitez Berger 350.1.13.10 ity of [facility] 4.2.7.2.[place] [phone] Ky dicjyothi KRAMER [address] BUILDING 2021-05-08 2021-05-08 Telephone [facility] 1.2.840.114 [id number] Univers 00:00:00 00:00:00 Benitez Collazo HEALTH 350.1.13.10 it y of [place] 4.2.7.2.686 Jad as CANDACE?BLEA [phone] [place] dical AYOEY [address] MEDICAL OFFICE BUILDING 2021-05-05 2021-05-05 Orders Doctor YANDEL 1.2.840.114 [id number] Univers 00:00:00 00:00:00 Only Unassigned, ANIL 350.1.13.10 ity of [facility] 4.2.7.2.686 Jad as [phone] [address] 2021-05-01 2021-05-01 Office [facility] 1.2.840.114 [id number] Univers 08:45:00 09:00:00 Visit [facility] 350.1.13.10 it y of [place] 4.2.7.2.686 Jad as CANDACE?BLEA [phone] Ky dimitri GARCIA [address] [facility] OFFICE [facility] 2021-05-01 2021-05-01 [facility] [id number] Univers 08:45:00 08:45:00 GLENNY ity [facility] 2021-05-01 2021-05-01 [facility] [id number] Univers 08:45:00 08:45:00 [facility] 2021-05-01 2021-05-01 Prep [facility] 1.2.840.114 [id number] Univers 00:00:00 00:00:00 Surgery [facility] [address] 350.1.13.10 [facility] 4.2.7.2.686 Jad as CANDACE?BLEA [phone] [place] dimitri GARCIA [address] [place] [address] OFFICE [facility] 2021-04-28 2021-04-28 Orders Doctor YANDEL 1.2.840.114 [id number] Univers 00:00:00 00:00:00 Only Unassigned, ANIL 350.1.13.10 ity of [facility] 4.2.7.2.686 Jad as [phone] [address] 2021-04-22 2021-04-22 (TEL) [facility] [id number] Co mmon 00:00:00 00:00:00 [facility] 2021-04-18 2021-04-18 Telephone [facility] 1.2.840.114 [id number] Univers 00:00:00 00:00:00 Benitez L [address] 350.1.13.10 it y of [place] 4.2.7.2.686 Jad as CANDACE?BLEA [phone] [place] dimitri GARCIA [address] [place] [address] OFFICE [facility] 2021-04-14 2021-04-14 Telephone [facility] 1.2.840.114 [id number] Univers 00:00:00 00:00:00 Benitez TY 350.1.13.10 it y of [facility] 4.2.7.2.686 Jad as CANDACE?BLEA [id number] Ky dimitri GARCIA 198 [facility] OFFICE [facility] 2021-04-07 2021-04-07 [facility] [id number] Univers 14:00:00 23:59:00 BENITEZBETTY muhammad [facility] 2021-04-07 2021-04-07 Hospital [facility] 1.2.840.114 [id number] Univers 14:00:00 23:59:00 Encounter Benitez TY 350.1.13.10 ity of [facility] 4.2.7.2.686 Jad as CANDACE?BLEA [phone] [place] dimitri GARCIA [address] [facility] 2021-04-07 2021-04-07 [facility] [id number] Univers 14:00:00 15:00:54 BENITEZ muhammad [facility] 2021-04-07 2021-04-07 Office [facility] [id number] Univers 13:56:59 15:00:54 Visit Benitez TY 350.1.13.10 it y of [facility] 4.2.7.2.686 Jad as CANDACE?BLEA [id number] Ky olamidejyothi GARCIA 198 [facility] OFFICE [facility] 2021-04-07 2021-04-07 Orders Doctor HUMPHRIES 1.2.840.114 [id number] Univers 00:00:00 00:00:00 Only Unassigned, ANIL 350.1.13.10 ity of [facility] 4.2.7.2.686 Jad as [id number] [address] 2021-03-31 2021-03-31 Orders Doctor YANDEL 1.2.840.114 [id number] Univers 00:00:00 00:00:00 Only Unassigned, ANIL 350.1.13.10 ity of [facility] 4.2.7.2.686 Jad as [id number] [address] 2021-02-10 2021-02-10 (TEL) STLMLC STLMLC [id number] Co mmon 00:00:00 00:00:00 [facility] 2021-01-21 2021-01-21 (TEL) STLMLC STLMLC [id number] Co mmon 00:00:00 00:00:00 [facility] 2021-01-21 2021-01-21 (IN/ASP) STLMLC STLMLC [id number] C ommon 00:00:00 00:00:00 INJ ASP [facility] 2021-01-14 2021-01-14 (IN/ASP) STLMLC STLMLC [id number] C ommon 00:00:00 00:00:00 INJ ASP [facility] 2021-01-07 2021-01-07 (IN/ASP) STLMLC STLMLC [id number] C ommon 00:00:00 00:00:00 INJ ASP [facility] 2021-01-06 2021-01-06 (TEL) STLMLC STLMLC [id number] Co mmon 00:00:00 00:00:00 [facility] 2021-01-02 2021-01-02 OFFICE STLMLC STLMLC [id number] Co mmon 00:00:00 00:00:00 VISIT NEW Spir it PT LEVEL 4 [facility] 2020-07-09 2020-07-09 Outpatient Anderson_C VFP VFP [address] [place] [address] 01:37:00 01:37:00 [id number] Family Practic e 2020-03-27 2020-03-27 Outpatient Anderson_C VFP VFP [address] [place] [address] 01:23:00 01:23:00 [id number] Family Practic e 2019-08-14 2019-08-14 Outpatient Anderson_C VFP VFP [address] 02:20:00 02:20:00 [id number] Family Practic e 2019-08-14 2019-08-14 Outpatient Fields_C VFP VFP [id number] [address] 02:20:00 02:20:00 [id number] Family Practic e 2019-08-07 2019-08-07 Outpatient Anderson_C VFP VFP 7748 [id number] [facility] 03:40:00 03:40:00 94202 Family Practic e 2019-08-07 2019-08-07 Cathlyn H VFP [place] - [id number] [facility] 00:00:00 00:00:00 Ashley Luciomahnaz mullins MD: [id number] [facility] VM_HOU_Suga jr [place], [facility] [address], ([facility] [place] [address] , Ph. 2019-08-04 2019-08-04 Outpatient Anderson_C VFP VFP 7748 94-202 [facility] 09:28:00 09:28:00 55102 Family Practic e 2019-07-20 2019-07-20 Outpatient Fields_C VFP VFP [id number] -202 [facility] 02:00:00 02:00:00 [id number] Family Practic e 2019-07-20 2019-07-20 Outpatient Anderson_C VFP VFP 7748 [id number] [facility] 02:00:00 02:00:00 80439 Family Practic e 2019-07-18 2019-07-18 Outpatient Anderson_C VFP VFP 7748 94-202 [facility] 12:04:00 12:04:00 [id number] Family Practic e 2019-07-17 2019-07-17 Outpatient Anderson_C VFP VFP 7748 [id number] [facility] 06:12:00 06:12:00 [id number] Family Practic e 2019-07-17 2019-07-17 Cathlyn H VFP [place] - [id number] [facility] 00:00:00 00:00:00 Ashley Lucio Karin mullnis MD: 13754 [facility] [place], [facility] [address], ([facility] [place] [address] , Ph. 2019-06-28 2019-06-28 Outpatient Fields_C VFP VFP [id number] -202 [facility] 02:57:00 02:57:00 [id number] Family Practic e 2019-06-28 2019-06-28 Outpatient Fields_C VFP VFP [id number] -202 [facility] 02:57:00 02:57:00 42009 Family Practic e 2019-06-28 2019-06-28 Outpatient Fields_C VFP VFP [id number] -202 [facility] 02:57:00 02:57:00 [id number] Family Practic e 2019-04-26 2019-04-26 Outpatient MHSE MHSE 7500 07:22:00 07:22:00 [facility] l Results Test Description Test Time Test Comments Results Result Comments Source CBC WITH DIFF 2022-04-09 04:27:27 Test Item Value Reference Range Interpretation Comme nts WBC (test code = 6690-2) See_Comment H [A utomated message] The system which ge nerated this result transmit octavio reference range: 4.30 - 1 1.10 10*3/?L. The reference r jorge was not used to interpr et this result as normal/abnor mal. RBC (test code = 789-8) See_Comment L [Au tomated message] The system which ge nerated this result transmit octavio reference range: 3.93 - 5 .25 10*6/?L. The reference r jorge was not used to interpr et this result as normal/abnor mal. HGB (test code = 718-7) 11.8 g/dL 11.6-15.0 HCT (test code = 4544-3) 34.5 % 35.7-45.2 L MCV (test code = 787-2) 90.8 fL 80.6-95.5 MCH (test code = 785-6) 31.1 pg 25.9-32.8 MCHC (test code = 786-4) 34.2 g/dL 31.6-35.1 RDW-SD (test code = 56750-5) 45.7 fL 39.0-49.9 RDW-CV (test code = 788-0) 13.9 % 12.0-15.5 PLT (test code = 777-3) See_Comment H [Au tomated message] The system which ge nerated this result transmit octavio reference range: 166 - 35 8 10*3/?L. The reference range was not used to interpret th is result as normal/abnormal . MPV (test code = 51953-7) 9.1 fL 9.5-12.9 L NRBC/100 WBC (test code = See_Comment [ Automated message] The 8875883990) system which ge nerated this result transmit octavio reference range: 0.0 - 10 .0 /100 WBCs. The reference r jorge was not used to interpr et this result as normal/abnor mal. NRBC x10^3 (test code = See_Comment [Au tomated message] The 7534597109) system which ge nerated this result transmit octavio reference range: 10*3/?L. The reference range was not u sed to interpret this result as normal/abnormal . SEG % (test code = 58272-1) 58 % 33-76 LYMPH % (test code = 31 % 14-54 46412-5) MONO % (test code = 90158-5) 8 % 0-4 H EOS % (test code = 95240-5) 3 % 0-3 ANC (test code = 753-4) 7.77 10*3/uL 1.88-7.09 H Lab Interpretation (test Abnormal code = 67548-7) [facility] [id number] 04:16:23 Test Item Value Reference Interpretation Comments Range TROPONIN I (test 0.015 ng/mL See_Comment [Automated code = 4437385215) message] The system which generated this result transmitted reference range : <=0.034. The reference range was not used to interpret this result as normal/abnormal . LIZ (test code = Reference (Normal) LIZ) Range (defined by the 99th percentile reference limit): <= 0.034 ng/mL Note: Cardiac troponin begins to rise 3-4 hours after the onset of ischemia. Repeat in 4-6 hours if the sample was drawn within 3-4 hours of the onset of the symptom and found normal. Diagnosis of myocardial injury is made with acute changes in cTn concentrations with at least one serial sample above the 99th percentile upper reference limit (URL), taken together with the patient's clinical presentation. Biotin has been reported to cause a negative bias, interpret results relative to patient's use of biotin. Lab Interpretation Normal (test code = 44553-3) [facility] [id number] 04:13:21 Test Item Value Reference Range Interpretation Comments NT-proBNP (test code 878 pg/mL See_Comment H [Autom ated = 0574219365) message] The system which generated this result transmitted reference range : <=125. The reference range was not used to interpret this result as normal/abnormal . LIZ (test code = LIZ) Biotin has been reported to cause a negative bias, interpret results relative to patient's use of biotin. Lab Interpretation Abnormal (test code = 92316-8) [facility]. METABOLIC PANEL ([id number])2022-04-09 04:01:02 Test Item Value Reference Range Interpretation Comments NA (test code = 139 mmol/L 135-145 0940709762) K (test code = 3.2 mmol/L 3.5-5.0 L 6932026027) CL (test code = 97 mmol/L 98-108 L 4811616615) CO2 TOTAL (test code = 32 mmol/L 23-31 H 5773276169) AGAP (test code = 2-16 0821571845) BUN (test code = 11 mg/dL 7-23 9881177895) GLUCOSE (test code = 161 mg/dL 70-110 H 9513729930) CREATININE (test code = 1.05 mg/dL 0.50-1.04 H 4284021307) TOTAL BILI (test code = 0.4 mg/dL 0.1-1.9 9235644544) CALCIUM (test code = 8.8 mg/dL 8.6-10.6 3607799368) T PROTEIN (test code = 7.3 g/dL 6.3-8.2 2486682847) ALBUMIN (test code = 4.3 g/dL 3.5-5.0 0476208726) ALK PHOS (test code = 87 U/L 34-122 1621499906) ALTv (test code = 20 U/L 5-35 1742-6) AST(SGOT) (test code = 23 U/L 13-40 1742721564) eGFR (test code = mL/min/1.73m2 6635234399) LIZ (test code = LIZ) Association of Glomerular Filtration Rate (GFR) and Staging of Kidney Disease* + --+ --+ ------+| GFR (mL/min/1.73 m2) ?| With Kidney Damage ?| ?Without Kidney Damage+ --------+ --------+ +| ?>90 ?| ?Stage one ?| ? Normal ?+ ---+ ---+ -------+| ?60-89 ?| ?Stage two ?| ? Decreased GFR ? + --+ --+ ------+| ?30-59 ?| ?Stage three ?| ? Stage three ? + --+ --+ ------+| ?15-29 ?| ?Stage four ? | ? Stage four ?+ ---+ ---+ -------+| ?<15 (or dialysis) ? ?| ?Stage five ? | ? Stage five ?+ ---+ ---+ -------+ *Each stage assumes the associated GFR level has been in effect for at least three months. ?Stages 1 to 5, with or without kidney disease, indicate chronic kidney disease. Notes: Determination of stages one and two (with eGFR >59mL/min/1.73 m2) requires estimation of kidney damage for at least three months as defined by structural or functional abnormalities of the kidney, manifested by either:Pathological abnormalities or Markers of kidney damage (including abnormalities in the composition of the blood or urine or abnormalities in imaging tests). Lab Interpretation Abnormal (test code = 46807-2) [facility]- XR TIBIA/FIBULA 2 V [id number] 00:00:00 [facility] : 1960 Sex: F FAX: Edith Akhtar MD [phone] [place]: [place] St: REG FAX: Bereket Pratt Name: DESTINY GARAY FSED : 1960 Age/S: 61/F [address] [facility] Unit #: [id number] Loc: Leatha Castaneda [address] Phys: Wendie Pratt MD Acct: [id number] Dis Date: Status: REG ER PHONE #: Exam Date: 11/13/2021 0900 FAX #: Reason: fall, s/p knee replacement EXAMS: CPT CODE: [id number] XR TIBIA/FIBULA 2 V RT 49964 PROCEDURE INFORMATION: Exam: XR Right Tibia and Fibula Exam date and time: 11/13/2021 8:16 AM Age: 61 years old Clinical indication: Injury or trauma; Fall; Fracture, traumatic; Closed fracture; Ankle; Right; Malleolus, lateral; Additional info: Fall, S/P knee replacement TECHNIQUE: Imaging protocol: Radiologic exam of the Right tibia and fibula. Views: 2 views. COMPARISON: No relevant prior studies available. Impression: Distal fibular metaphyseal minimally displaced fracture. Please see ankle radiograph for more details. No proximal tib fib fractures. Knee joint arthroplasty is visualized and appears to be intact without loosening. at 0859 Reported and signed by: Jose Lozano M.D. CC: Edith Dalal MD; Wendie Pratt MD Technologist: RT Freddy(R)(CT) Trnscrd Date/Time/By: 11/13/2021 (59) : By: [email or web address] Orig Print D/T: S: 11/13/2021 (0903) PAGE 1 Signed Report- XR KNEE 1 OR 2 V [id number] 00:00:00 [facility] DEST[facility] : 1960 Sex: F FAX: Edith Akhtar MD [phone] [place]: [place] St: REG FAX: Bereket Pratt Name: DESTINY GARAY [place] FSED : 1960ge/S: / [address] [place] [address] Unit #: [id number] Loc: [place] [address] Phys: Wendie Pratt MD Acct: [id number] Dis Date: Status: REG ER PHONE #: Exam Date: 11/13/2021 0900 FAX #: Reason: fall, s/p knee replacement EXAMS: CPT CODE: [id number] XR KNEE 1 OR 2 V RT [id number] PROCEDURE INFORMATION: Exam: XR Right Knee Exam date and time: 11/13/2021 8:16 AM Age: 61 years old Clinical indication: Injury or trauma; Fall; Blunt trauma; Ankle; Right; Prior surgery; Surgery date: 1-6 months; Surgery type: Knee replacement; Additional info: Fall, S/P knee replacement TECHNIQUE: Imaging protocol: Radiologic exam of the Right knee. Views: 1 or 2 views. AP and Lateral COMPARISON: No relevant prior studies available. FINDINGS: Bones/joints: Status post total knee arthroplasty. Normal alignment. No periprosthetic fracture. Soft tissues: Soft tissues are grossly unremarkable. Notes: If there is further concern, recommend follow-up radiographs or MRI for complete assessment. IMPRESSION: No acute osseous findings. Status post total knee arthroplasty. at 0900 Reported and signed by: Margret Avila M.D. CC: Edith Dalal MD; Wendie Pratt MD Technologist: Miguel Angel Bullock, RT(R)(CT) Trnscrd Date/Time/By: 11/13/2021 (899) : By: [email or web address] Orig Print D/T: S: 11/13/2021 (902) PAGE 1 Signed Report- XR ANKLE 2 VIEWS [id number] 00:00:00[facility] DEST[facility] : 1960 Sex: F FAX: Edith Akhtar MD [phone] [place]: [place] St: [facility] FAX: Bereket Pratt Name: DESTINY GARAY FSED : 1960 Age/S: 61/F [address] [facility] Unit #: [id number] Loc: [place] [address] Phys: Wendie Pratt MD Acct: [id number] Dis Date: Status: REG ER PHONE #: Exam Date: 11/13/2021 0900 FAX #: Reason: fall, ankle swelling and tenderness medially EXAMS: CPT CODE: [id number] [place]R [place]KLE [address] [place] [address] PROCEDURE INFORMATION: Exam: XR Right Ankle Exam date and time: 11/13/2021 8:16 AM Age: 61 yearsold Clinical indication: Trauma, injury to the right ankle, status post fall. TECHNIQUE: Imaging prot ocol: Radiologic exam of the Right ankle. Views: 1 or 2 views. AP and Lateral COMPARISON: No relevant prior studies available. FINDINGS: Bones/joints: Mildly displaced, mildly angulated fracture of the distal fibula extending to just above the ankle joint. There is mild varus deformity. No other osseous abnormalities are seen involving the right ankle. No other fractures are seen. The ankle mortise is intact. The joint space is well maintained. There are no degenerative changes. There is a small posterior calcaneal enthesophyte and moderate-sized plantar calcaneal spur. Soft tissues: Soft tissue swelling is noted, particularly laterally. Notes: If there is further concern, recommend follow-up radiographs or MRI for complete assessment. IMPRESSION: 1. Distal right fibular fracture. 2. No other osseous abnormalities are seen involving the right ankle. 3. There is a small posterior calcaneal enthesophyte and moderate- sized plantar calcaneal spur. at 0906 Reported and signed by: David [place] M.D. CC: Edith Dalal MD; Wendie Pratt MD Technologist: Miguel Angel Bullock RT(R)(CT) Trnscrd Date/Time/By: 11/13/2021 (905) : By: [email or web address] Orig Print D/T: S: 11/13/2021 (905) PAGE 1 Signed ReportSCR MAMM BILATERAL ELENA CAD [id number] 07:52:28 - SCR MAMM BILATERAL ELENA CAD DIGITALBILATERAL DIGITAL SCREENING MAMMOGRAM 3D/2D WITH CAD: 04/25/2019CLINICAL: Asymptomatic. Digital breast tomosynthesis was performed in addition to routine CC and MLO views. Current mammographic images were evaluated by either a Re.nooble M-Vu or a BuddyTV ImageCheckerCAD (computer aided detection system). Comparison is made to exams dated 06/17/2016 mammogram, 05/28/2014 mammogram, and 08/07/2008 mammogram - [facility]. The tissue of both breasts is predominantly fatty. There are benign vascular calcifications in both breasts. There also is a biopsy clip in the left breast. No suspicious mass, architectural distortion, malignant type calcification, orlymph node abnormality detected. Breast architecture is stable compared to prior exams.IMPRESSION: BENIGNThere is no mammographic evidence of malignancy. Resume annual screening mammography in one year. Arnold Doyle M.D. et/penrad:04/27/2019 07:52:28 [employer]ender: Asia BENEDICT RT(M), [facility] sent: BIRADS 1-2 Normal Mammogram BI-RADS: 2 Benign
[2022-04-16] MEDS ORDERED: ONDANSETRON 4 MG/2 ML VIAL IV PRN (04:54)
[2022-04-16] MEDS ORDERED: TRAMADOL HCL 50 MG TAB PO PRN (04:54)
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
[2022-04-16] MEDS: MORPHINE 2 MG/ML SYR IV PRN ×3 (06:21→20:54)
[2022-04-16] MEDS: carvediloL 3.125 MG TAB PO SCH ×2 (06:23→17:06)
[2022-04-16 07:03] LABS: Absolute Lymphocytes (CBC) 3.3 K/uL (0.7-4.9); Hematocrit 33.5 % (36.0-45.0); Lymphocytes % 27.9 % (15.3-44.8); MCV 94.2 fL (80-100); MPV 7.3 fL (7.6-11.3); RBC Red Blood Cell Count 3.55 M/uL (3.86-4.86)
[2022-04-16 07:14] VITALS: BMI 29.6
[2022-04-16 07:28] LABS: Bilirubin Total 0.3 mg/dL (0.2-1.0); Magnesium 1.5 mg/dL (1.8-2.4); Protein, Total 6.9 g/dL (6.4-8.2)
[2022-04-16 07:30] LABS: Potassium 2.8 mmol/L (3.5-5.1); Troponin High Sensitivity 175.7 pg/mL (<58.9)
[2022-04-16] MEDS: INSULIN -REGULAR HUMAN 50 UNIT/0.5 ML ML SQ SCH ×4 (07:30→20:54)
[2022-04-16] MEDS ORDERED: INFLUENZA VACCINE (for 6+ mo) 0.5 ML DOSE IMVAC ONE (08:00)
[2022-04-16] MEDS: ASPIRIN EC 81 MG TAB PO SCH (08:07)
[2022-04-16] MEDS: allopurinoL 100 MG TAB PO SCH (08:07)
[2022-04-16] MEDS: lisinopriL 5 MG TAB PO SCH (08:08)
[2022-04-16] MEDS ORDERED: MAGNESIUM SULFATE 1 gm IVPB 1 GM/100 ML BAG IV ONE (12:06)
[2022-04-16] MEDS ORDERED: NA CHLORIDE 0.9% 1,000 ML ONE (12:21)
[2022-04-16 12:28] VITALS: O2SAT 92
[2022-04-16] MEDS ORDERED: Magnesium Sulfate 2gm IVPB 2 G/50 ML BAG IV ONE (12:40)
[2022-04-16] MEDS: KCL 20 MEQ/100 mL IVPB 20 MEQ/100 ML BAG IV SCH ×2 (13:39→15:30)
[2022-04-16] MEDS ORDERED: POTASSIUM CL SA 10 MEQ TAB PO ONE (15:00)
--- NOTE | 2022-04-16 18:15 | P.PN ---
Date of Service: 04/16/22 Blood pressure has improved to normal range. Troponin trended. No ACS. Cardiology consulted-Dr. Coleman informed. Echocardiogram ordered. On full dose Lovenox for elevated troponin. Continue Coreg and lisinopril.
[2022-04-16] MEDS: ENOXAPARIN 100 MG/ML SYR SQ SCH (20:53)
[2022-04-16] MEDS ORDERED: ATORVASTATIN 40 MG TAB PO SCH (21:00)
[2022-04-17] MEDS: carvediloL 3.125 MG TAB PO SCH (05:44)
[2022-04-17] MEDS: MORPHINE 2 MG/ML SYR IV PRN (05:45)
[2022-04-17 06:43] LABS: Absolute Lymphocytes (CBC) 4.1 K/uL (0.7-4.9); Hematocrit 29.9 % (36.0-45.0); Lymphocytes % 41.8 % (15.3-44.8); MCV 93.9 fL (80-100); MPV 7.3 fL (7.6-11.3); RBC Red Blood Cell Count 3.18 M/uL (3.86-4.86)
[2022-04-17 07:05] LABS: Albumin 2.7 g/dL (3.4-5.0); Bilirubin Total 0.4 mg/dL (0.2-1.0); Magnesium 1.8 mg/dL (1.8-2.4); Potassium 3.3 mmol/L (3.5-5.1); Protein, Total 6.1 g/dL (6.4-8.2)
[2022-04-17] MEDS: INSULIN -REGULAR HUMAN 50 UNIT/0.5 ML ML SQ SCH ×2 (07:30→08:04)
[2022-04-17] MEDS: ASPIRIN EC 81 MG TAB PO SCH (08:03)
[2022-04-17] MEDS: ENOXAPARIN 100 MG/ML SYR SQ SCH (08:03)
[2022-04-17] MEDS: allopurinoL 100 MG TAB PO SCH (08:04)
[2022-04-17] MEDS: lisinopriL 5 MG TAB PO SCH (08:04)
[2022-04-17 08:05] VITALS: BP 149/68
[2022-04-17] MEDS ORDERED: POTASSIUM CL SA 10 MEQ TAB PO ONE (08:30)
[2022-04-17] MEDS ORDERED: CODEINE 30MG/APAP 300MG TAB PO PRN (08:48)
--- NOTE | 2022-04-17 08:54 | P.DS ---
Admission Date: 04/16/22 Discharge Date: 04/17/22 Disposition: ROUTINE DISCHARGE Discharge Condition: GOOD Reason for Admission: NSTEMI - Problems (1) Diabetes mellitus type II, non insulin dependent Onset Date: 07/15/15 Status: Chronic (2) Hypertension Onset Date: 07/15/15 Status: Chronic Qualifiers: Hypertension type: essential hypertension Qualified Code(s): I10 - Essential (primary) hypertension Brief History of Present Illness: 62-year-old female with history of chronic diastolic congestive heart failure, CKD 3, insulin-dependent diabetes, hypertension, hyperlipidemia, chronic pain presented to outside hospital emergency department for elevated blood pressure. She reported her blood pressure has been elevated over the course last 1 week with associated headache. She reported pressures at home 190 systolic, she was referred by her PCP/home health to the emergency department. She is evaluated in the emergency department at outside hospital and found to have elevated high- sensitivity troponin, initial troponin on 04/15/2022 at 1556 was 148.7, repeat troponin at 1912 was 158.1. White blood cell count was 15.1 hemoglobin 10.7 hematocrit 32.4 sodium 138 potassium 2.5 bicarb 35 glucose 120 creatinine 1.22, GFR 57 magnesium 1.4 her D-dimer is also elevated 1040.1 CT PE protocol was performed which was negative for pulmonary embolism. Patient hospitalized for further evaluation for elevated troponin. Hospital Course: Patient placed under observation on the medical floor. Troponin trended flat. She was asymptomatic during the hospital stay. Patient seen and evaluated by Dr. Coleman, elevated troponin deemed secondary to demand ischemia. Her lisinopril dose is increased from 5 mg to 10 mg daily. Patient deemed clinically stable for discharge. Vital Signs/Physical Exam: Temp Pulse Resp BP Pulse Ox 99.0 F 65 17 149/68 H 97 04/17/22 07:00 04/17/22 08:04 04/17/22 07:00 04/17/22 08:04 04/17/22 07:00 General: Alert, In no apparent distress, Oriented x3 HEENT: Mucous membr. moist/pink Neck: JVD not distended Respiratory: Clear to auscultation bilaterally, Normal air movement Cardiovascular: No edema, Regular rate/rhythm, Normal S1 S2 Gastrointestinal: Soft and benign, Non-distended, No tenderness Musculoskeletal: No swelling Integumentary: No rashes Neurological: Normal strength at 5/5 x4 extr Laboratory Data at Discharge: WBC 9.90 K/uL (4.3-10.9) 04/17/22 06:29 Hgb 10.3 g/dL (12.0-15.0) L D 04/17/22 06:29 Hct 29.9 % (36.0-45.0) L 04/17/22 06:29 Plt Count 450 K/uL (152-406) H 04/17/22 06:29 Sodium 138 mmol/L (136-145) 04/17/22 06:29 Potassium 3.3 mmol/L (3.5-5.1) L 04/17/22 06:29 BUN 8 mg/dL (7-18) 04/17/22 06:29 Creatinine 1.06 mg/dL (0.55-1.3) 04/17/22 06:29 Glucose 118 mg/dL (74-106) H 04/17/22 06:29 Magnesium 1.8 mg/dL (1.8-2.4) 04/17/22 06:29 Total Bilirubin 0.4 mg/dL (0.2-1.0) 04/17/22 06:29 AST 21 U/L (15-37) 04/17/22 06:29 ALT 22 U/L (12-78) 04/17/22 06:29 Alkaline Phosphatase 69 U/L (45-117) 04/17/22 06:29 Home Medications: Aspirin 81 mg PO DAILY 03/27/20 Bumetanide 1 mg PO DAILY 03/27/20 Amitriptyline [Elavil*] 50 mg PO BEDTIME 09/07/20 Atorvastatin Calcium 40 mg PO BEDTIME 09/07/20 Duloxetine HCl 60 mg PO DAILY 09/07/20 Folic Acid 1 mg PO DAILY 09/07/20 ARIPiprazole [Aripiprazole] 2 mg PO DAILY 03/02/21 Allopurinol 100 mg PO DAILY 03/02/21 Cholecalciferol (Vitamin D3) [Vitamin D3] 1,000 unit PO DAILY 03/09/21 Mecobalamin [B12 Active] 1,000 mcg PO DAILY 03/09/21 Carvedilol [Coreg] 3.125 mg PO BID 04/16/22 Duloxetine HCl 30 mg PO DAILY 04/16/22 Omeprazole [Prilosec] 40 mg PO DAILY 04/16/22 Lisinopril [Zestril] 10 mg PO DAILY #30 tab 04/17/22 New Medications: Lisinopril [Zestril] 10 mg PO DAILY #30 tab Diet: AHA Activity: Fall precautions Followup: Dung Coleman MD [ACTIVE - CAN ADMIT] - 1-2 Weeks (FOLLOW UP IN 1-2 WEEKS) Time spent managing pt's care (in minutes): 28
[2022-04-17 08:55] LABS: Blood Morphology Comment NOT SEEN (NOT SEEN); Platelet Estimate ADEQ
[2022-04-17 09:40] VITALS: TEMP 98.6
--- NOTE | 2022-04-20 06:47 | CON ---
Date of Consultation: 04/17/2022 Reason For Consultation: Elevated troponin in the setting of severe uncontrolled hypertension. History Of Present Illness: Ms. Salguero is 62. She is known to us from previous office visits, has a history of congestive heart failure, chronic kidney disease, diabetes, and hypertension, came in with severe hypertension. Troponin was 150. BNP was 1659. Her creatinine was 1.22. Her potassium was 2.8. She had no symptoms of chest pain. Denies any nausea, vomiting, diaphoresis, PND, orthopnea, p edal edema, palpitations, or syncope. Past Medical History: As stated above. Allergies: TO FISH AND SULFASALAZINE. Review of Systems: Negative. Social History: Negative. Family History: Noncontributory. Medications: At home include Coreg, lisinopril, Lipitor, insulin, and aspirin. Physical Examination: General: She was pleasant, no acute distress. Vital Signs: Stable. Blood pressure is improved. Sinus rhythm. HEENT: Negative. Neck: Supple without any bruit, lymphadenopathy, JVD, or thyromegaly. Chest: Clear to auscultation and percussion. Cardiac: Revealed a regular rhythm and rate with S4 gallops. Abdomen: Benign. Extremities: Revealed trace edema. Diagnostic Data: Showed a potassium of 2.8. The rest of the diagnostic data as stated earlier. EKG showed LVH. Impression And Plan: 1.Elevated troponin secondary to demand ischemia from hypertension, renal insufficiency, and hypokal emia. 2.Chronic diastolic congestive heart failure. 3.Chronic kidney disease. 4.Diabetes. 5.Hypertension. 6.Dyslipidemia. 7.Hypokalemia. If Ms. Salguero stays in the hospital, we will probably get an echocardiogram on her, but for now, I wou ld consider increasing lisinopril, increasing Coreg. Consider adding Norvasc. I will make arrangeme nts for her to have an outpatient Lexiscan and an appointment in the office. LETHA/MICAELA Voice ID: [id number] Report ID: [id number]
--- NOTE | 2022-04-21 08:40 | EKG ---
Test Date: 2022-04-16 Test Time: 04:48:09 Director Style: JARRETT MEASUREMENT RESULTS: Intervals: Rate: 63 [place]: QRSD: 178 QT: 494 QTc: 505 [place]: P: [place]: QRS: -70 T: 65 INTERPRETIVE STATEMENTS: AV sequential or dual chamber electronic pacemaker Compared to ECG 03/01/2021 17:57:04 Sinus rhythm no longer present Sinus arrhythmia no longer present Left-axis deviation no longer present Left bundle-branch block no longer present Electronically Signed On 04-21-22 08:35:00 H[employer]IC[employer] by Dung Coleman
== END 2022-04-17 10:37 | disposition home or self-care (01) | DRG 311 ==
LOC: 4TH 04:36
PROVIDERS: ADMIT Internal Medicine; ATTEND Internal Medicine
DX: I24.8 Other forms of acute ischemic heart disease (principal); I13.0 Hypertensive heart and chronic kidney disease with heart failure and stage 1 through stage 4 chronic kidney disease, or unspecified chronic kidney disease; I50.32 Chronic diastolic (congestive) heart failure; N18.30 Chronic kidney disease, stage 3 unspecified; E11.22 Type 2 diabetes mellitus with diabetic chronic kidney disease; E11.40 Type 2 diabetes mellitus with diabetic neuropathy, unspecified; E87.6 Hypokalemia; E83.42 Hypomagnesemia; E78.5 Hyperlipidemia, unspecified; G89.29 Other chronic pain; Z23 Encounter for immunization; Z60.2 Problems related to living alone; Z79.4 Long term (current) use of insulin; Z88.8 Allergy status to other drugs, medicaments and biological substances; Z79.82 Long term (current) use of aspirin; Z79.52 Long term (current) use of systemic steroids; Z91.013 Allergy to seafood; Z79.899 Other long term (current) drug therapy
CPT/HCPCS: 36415; 80053; 82947; 83735; 83880; 84132; 84484; 85025; 90471; 93005; J1650; J1815; J2270; J3475; J3480; J7030; Q2035

== ENCOUNTER 2022-04-19 16:46 | Observation (INO) | payer OTHER ==
--- OUTSIDE RECORDS SUMMARY | 2022-04-19 16:56 | XMS REPORT | Continuity of Care Document ---
:1960 Author Organization [facility] t Address [address] [place] [address] Care Team Providers Name Role Phone Laurel Burris MD Primary Care Physician MAT HINTON Attending Clinician Unavailable [id number] Attending Clinician Unavailable АЛЕКСАНДР HOWELL Attending Clinician Unavailable VINCENT RADER Attending Clinician Unavailable Vincent Rader MD Attending Clinician [phone] Doctor Unassigned, [place] Attending Clinician Unavailable Benitez Berger MD Attending Clinician Glenny Jose Attending Clinician GLENNY VIDAL Attending Clinician Unavailable BENITEZ BERGER Attending Clinician Unavailable Pob, [facility] Main Attending Clinician Unavailable Only, Adc Test Attending Clinician Unavailable ShonarabellaWendie hernandez Attending Clinician Unavailable Oracio CHANDRA, Alina Holland Attending Clinician DIANE TAPIA Attending Clinician Unavailable Mathew Raines MD Attending Clinician Kandy Sanchez DO Attending Clinician Diane Tapia MD Attending Clinician VERONICA PENDLETON Attending Clinician Unavailable Veronica Mccrary Attending Clinician RADHA VELÁZQUEZ Attending Clinician Unavailable Radha Linares Attending Clinician Davar_P Attending Clinician Unavailable Aldo Bustos MD Attending Clinician ALDO BUSTOS Attending Clinician Unavailable Brent Attending Clinician Unavailable Gonzalez_C Attending Clinician Unavailable MAT HINTON Admitting Clinician Unavailable [id number] Admitting Clinician Unavailable VINCENT RADER Admitting Clinician Unavailable BENITEZ BERGER Admitting Clinician Unavailable Benitez Berger MD Admitting Clinician Edith Dalal Admitting Clinician Unavailable KANDY SANCHEZ Admitting Clinician Unavailable Kandy Sanchez DO Admitting Clinician RADHA VELÁZQUEZ Admitting Clinician Unavailable Davar_P Admitting Clinician Unavailable Naveed_Luis Angel Admitting Clinician Unavailable Gonzalez_C Admitting Clinician Unavailable Payers Payer Name Policy Type Policy Number Effective Date Expiration Date S willie [employer] [id number] 2015 HMO 00:00:00 HLSM HLSM [id number] SELF-PAY CI [id number] [employer] [id number] 2015spring 00:00:00 [employer] [id number] 2019 (MEDICARE 00:00:00 REPLACEMENT/ADVANT AGE - HMO) Denator [id number] Common Medicare Replace [facility] [id number] Common Medicare Replace [facility] CignaHealthSpring C1 [id number] Common Medicare Replace [facility] C1 [id number] Common Medicare Replace [facility] [id number] Common Medicare Replace [facility] [id number] Common Medicare Replace [facility] C1 [id number] Common Medicare Replace [facility] Problems Condition Condition Condition Status Onset Resolution Last Treating Co mments Source Name Details Category Date Date Treatment Clinician Date Closed Closed Disease Active Univers right right 7-19 ity of ankle ankle 00:00: [place] fracture fracture 00 Medica l Branch Sore Sore Disease Active Univers throat throat 6-14 ity of 00:00: [place] [facility] [place] Cough Cough Disease Active Univers 6-13 ity of 00:00: [place] [facility] Branch Chronic Chronic Disease Active Univers combined combined 6-13 ity of systolic systolic 00:00: [place] and and Medical diastolic 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 failure failure Pacemaker Pacemaker Disease Active Uni vers 6-13 ity of 00:00: 00 [facility] Type 2 Type 2 Disease Active Univers diabetes diabetes 6-13 ity of mellitus mellitus 00:00: [place] without without 00 Medical complicati complicati Br anch on, on, without without long-term long-term current current use of use of insulin insulin Hypokalemi Hypokalemi Disease Active U nivers a a 6-13 ity of 00:00: [place] [facility] Hyponatrem Hyponatrem Disease Active U nivers ia ia 6-13 ity of 00:00: Medical Branch Elevated Elevated Disease Active Unive rs troponin troponin 6-12 ity of 00:00: [place] 00 Medical Branch Elevated Elevated Disease Active Unive rs troponin troponin 6-12 ity of 00:00: [place] [facility] Obesity Obesity Disease Active 2020-05 Univers (BMI (BMI 2-22 ity of 30-39.9) 30-39.9) 00:00: [place] 00 Medical Branch Primary Primary Disease Active 2020-05 Overview: Univ ers osteoarthr osteoarthr 2-16 Formattin ity of itis of itis of 00:00: g of this [place] right knee right knee 00 note Me dical might be Branch different from the original. Added automatic ally from request for surgery [id number] Monitoring Monitoring Problem Active V illage of [...] Hyperglyce Disease Active U nivers lisset lisset 3-27 ity of 00:00: [place] [address] Medical Branch [id number] Arthritis Problem Active Co mmon [id number] of knee, [facility] right - [facility] Allergies, Adverse Reactions, Alerts Allergy Allergy Status Severity Reaction(s) Onset Inactive Treating Comm ents Source Name Type Date Date Clinician No Known DA Active U [facility] Allergie 6-30 Clear s 00:00: [place] 00 [facility] Sulfa Drug Active Other - See Unive rs (Sulfona Allergy comments 5-10 ity o f mide 00:00: [place] Antibiot 00 Medical ics) Branch SULFA Drug Active Other-Cmnt Univer s (SULFONA Class 5-10 ity of MIDE 00:00: [place] ANTIBIOT 00 Medical ICS) Branch NO KNOWN Allergy Active [facility] Family History Family Member Diagnosis Comments Start Date Stop Date Source Natural father Hypertension [facility] Natural father Alcohol abuse [facility] Natural father Heart disease [facility] Natural mother Early [facility] Natural sister Hypertension [facility] Natural brother Hypertension [facility] Natural brother Stroke [facility] Social History Social Habit Start Date Stop Date Quantity Comments Source History of [facility] - Tobacco Use [facility] Exposure to 2022-03-29 2022-04-08 Not sure University SARS-CoV-2 00:00:00 20:45:00 [facility] (event) Branch Alcohol intake 2015-08-13 2015-08-[address] [facility] es 00:00:00 00:00:00 non-drinker of Medical Ce nter alcohol (finding) Tobacco use and 2015-08-03 2015-08-03 Never used [facility] exposure 00:00:00 00:00:00 [facility] Sex Ass[birth year] At [birth year] [facility] 00:00:00 00:00:00 [facility] Smoking Status Start Date Stop Date Source Never Smoker [facility] Medications Ordered Filled Start Stop Current Ordering Indication Dosage Frequency Signature Comments Components Source Medication Medication Date Date Medication? Clinician (SIG) Name Name traMADoL 2021-05 50mg 50 mg, Univer s (ULTRAM) 24 11-24 Oral, ONCE ity of tablet 50 04:30: [...] (scale 7-10). Indication s: acute pain ferrous 0 Yes 325mg Take 325 Unive rs sulfate [...] mouth [place] 50 daily. Medical Branch amitriptyli 0 Yes 50mg Take 50 mg Univers ne 50 mg 7-25 by mouth ity of tablet 16:03: at [place] 50 bedtime. Medical Branch bumetanide 0 Yes 1mg Take 1 mg Un irma 1 mg tablet 7-25 by mouth ity of 16:03: in the [place] [address] morning. Medical Branch ARIPiprazol 0 Yes 2mg Take 2 mg U nivers e 2 mg 7-25 by mouth ity of tablet 16:03: daily. [place] [address] Medical Branch insulin NPH Yes 2U inject [...] mouth ity of delayed-rel 16:03: in the [facility] s ease 50 morning. Medical suspension Branch carvediloL Yes 3.125mg Take 3.125 Univers 3.125 mg 7-25 mg by ity of tablet 16:03: mouth in [place] [address] the Medical morning Branch and 3.125 mg in the evening. Take with meals. docusate Yes 100mg Take 100 Univ ers (COLACE) 7-25 mg by ity of 100 mg 16:03: mouth in [place] capsule 50 the Medical morning. Branch allopurinoL [...] mouth ity of 3350 16:03: in the [place] (MIRALAX) 50 morning. Medica l 17 Branch [...] by mouth ity of tablet 16:03: at [place] [address] bedtime. Medical Branch bumetanide Yes 1mg Take 1 mg Un irma 1 mg tablet 7-25 by mouth ity of 16:03: in the [place] [address] morning. Medical Branch ARIPiprazol Yes 2mg Take 2 mg U nivers e 2 mg 7-25 by mouth ity of tablet 16:03: daily. [place] [address] Medical Branch insulin NPH Yes 2U inject [...] mouth ity of delayed-rel 16:03: in the [facility] s ease 50 morning. Medical suspension Branch carvediloL Yes 3.125mg Take 3.125 Univers 3.125 mg 7-25 mg by ity of tablet 16:03: mouth in [place] 50 the Medical morning Branch and 3.125 mg in the evening. Take with meals. docusate Yes 100mg Take 100 Univ ers (COLACE) 7-25 mg by ity of 100 mg 16:03: mouth in [place] capsule 50 the Medical morning. Branch allopurinoL [...] mouth ity of 3350 16:03: in the [place] (MIRALAX) 50 morning. Medica l 17 Branch [...] by mouth ity of tablet 16:03: at [place] [address] bedtime. Medical Branch bumetanide Yes 1mg Take 1 mg Un irma 1 mg tablet 7-25 by mouth ity of 16:03: in the [place] 50 morning. Medical Branch ARIPiprazol Yes 2mg Take 2 mg U nivers e 2 mg 7-25 by mouth ity of tablet 16:03: daily. [place] [address] Medical Branch insulin NPH Yes 2U inject [...] mouth ity of delayed-rel 16:03: in the [facility] s ease 50 morning. Medical suspension Branch carvediloL Yes 3.125mg Take 3.125 Univers 3.125 mg 7-25 mg by ity of tablet 16:03: mouth in [place] 50 the Medical morning Branch and 3.125 mg in the evening. Take with meals. docusate Yes 100mg Take 100 Univ ers (COLACE) 7-25 mg by ity of 100 mg 16:03: mouth in [facility] 50 the Medical morning. Branch [...] mouth ity of 3350 16:03: in the [place] (MIRALAX) 50 morning. Medica l 17 Branch [...] by mouth ity of tablet 16:03: at [place] 50 bedtime. Medical Branch bumetanide Yes 1mg Take 1 mg Un irma 1 mg tablet 7-25 by mouth ity of 16:03: in the [place] 50 morning. Medical Branch ARIPiprazol Yes 2mg Take 2 mg U nivers e 2 mg 7-25 by mouth ity of tablet 16:03: daily. [place] [address] Medical Branch insulin NPH Yes 2U inject [...] mouth ity of delayed-rel 16:03: in the [facility] s ease 50 morning. Medical suspension Branch carvediloL Yes 3.125mg Take 3.125 Univers 3.125 mg 7-25 mg by ity of tablet 16:03: mouth in [place] [address] the Medical morning Branch and 3.125 mg in the evening. Take with meals. docusate Yes 100mg Take 100 Univ ers (COLACE) 7-25 mg by ity of 100 mg 16:03: mouth in [place] capsule 50 the Medical morning. Branch allopurinoL Yes 100mg Take 100 U nivers 100 mg 7-25 mg by ity of tablet 16:03: mouth in [place] 50 the Medical morning. Branch cholecalcif Yes [...] mouth ity of 3350 16:03: in the [place] (MIRALAX) 50 morning. Medica l 17 Branch [...] by mouth ity of tablet 16:03: at [place] [address] bedtime. Medical Branch bumetanide Yes 1mg Take 1 mg Un irma 1 mg tablet 7-25 by mouth ity of 16:03: in the [place] [address] morning. Medical Branch ARIPiprazol Yes 2mg Take 2 mg U nivers e 2 mg 7-25 by mouth ity of tablet 16:03: daily. [place] [address] Medical Branch insulin NPH Yes 2U inject [...] mouth ity of delayed-rel 16:03: in the [facility] s ease 50 morning. Medical suspension Branch carvediloL Yes 3.125mg Take 3.125 Univers 3.125 mg 7-25 mg by ity of tablet 16:03: mouth in [place] 50 the Medical morning Branch and 3.125 mg in the evening. Take with meals. docusate Yes 100mg Take 100 Univ ers (COLACE) 7-25 mg by ity of 100 mg 16:03: mouth in [place] capsule 50 the Medical morning. Branch allopurinoL [...] by mouth ity of tablet 16:03: at [place] [address] bedtime. Medical Branch bumetanide Yes 1mg Take 1 mg Un irma 1 mg tablet 7-25 by mouth ity of 16:03: in the [place] [address] morning. Medical Branch ARIPiprazol Yes 2mg Take 2 mg U nivers e 2 mg 7-25 by mouth ity of tablet 16:03: daily. [place] [address] Medical Branch insulin NPH Yes 2U inject [...] mouth ity of delayed-rel 16:03: in the [facility] s ease 50 morning. Medical suspension Branch carvediloL Yes 3.125mg Take 3.125 Univers 3.125 mg 7-25 mg by ity of tablet 16:03: mouth in [place] [address] the Medical morning Branch and 3.125 mg in the evening. Take with meals. docusate Yes 100mg Take 100 Univ ers (COLACE) 7-25 mg by ity of 100 mg 16:03: mouth in [facility] 50 the Medical morning. Branch [...] mouth ity of 3350 16:03: in the [place] (MIRALAX) 50 morning. Medica l 17 Branch [...] by mouth ity of tablet 16:03: at [place] [address] bedtime. Medical Branch bumetanide Yes 1mg Take 1 mg Un irma 1 mg tablet 7-25 by mouth ity of 16:03: in the [place] 50 morning. Medical Branch ARIPiprazol Yes 2mg Take 2 mg U nivers e 2 mg 7-25 by mouth ity of tablet 16:03: daily. [place] [address] Medical Branch insulin NPH 2022-0 Yes 2U inject 2 Un irma 100 [...] mouth ity of delayed-rel 16:03: in the [facility] s ease 50 morning. Medical suspension Branch [...] mouth ity of 3350 16:03: in the [place] (MIRALAX) 50 morning. Medica l 17 Branch [...] by mouth ity of tablet 16:03: at [place] [address] bedtime. Medical Branch bumetanide Yes 1mg Take 1 mg Un irma 1 mg tablet 7-25 by mouth ity of 16:03: in the [place] [address] morning. Medical Branch ARIPiprazol Yes 2mg Take 2 mg U nivers e 2 mg 7-25 by mouth ity of tablet 16:03: daily. [place] [address] Medical Branch insulin NPH Yes 2U inject [...] mouth ity of delayed-rel 16:03: in the [facility] [place] [facility] s ease 50 morning. Medical suspension Branch [...] by mouth ity of tablet 16:03: at [place] [address] bedtime. Medical Branch bumetanide Yes 1mg Take 1 mg Un irma 1 mg tablet 7-25 by mouth ity of 16:03: in the [place] [address] morning. Medical Branch ARIPiprazol Yes 2mg Take 2 mg U nivers e 2 mg 7-25 by mouth ity of tablet 16:03: daily. [place] [address] Medical Branch insulin NPH Yes 2U inject [...] mouth ity of delayed-rel 16:03: in the [facility] s ease 50 morning. Medical suspension Branch carvediloL Yes 3.125mg Take 3.125 Univers 3.125 mg 7-25 mg by ity of tablet 16:03: mouth in [place] [address] the Medical morning Branch and 3.125 mg in the evening. Take with meals. docusate Yes 100mg Take 100 Univ ers (COLACE) 7-25 mg by ity of 100 mg 16:03: mouth in [place] capsule 50 the Medical morning. Branch allopurinoL [...] mouth ity of 3350 16:03: in the [place] (MIRALAX) 50 morning. Medica l 17 Branch gram/dose powder benzocaine- Yes [id number] 1{lozen Take 1 Univers menthoL 6-15 ge} Lozenge by ity of lozenge 00:00: mouth [place] 00 every 4 Medical (four) Branch hours as needed for Sore throat. magnesium Yes [id number] 400mg Take 1 U nivers oxide 400 6-15 capsule by ity of mg 00:00: mouth [place] magnesium 00 daily. Medical capsule Branch benzocaine- Yes [id number] 1{lozen Take 1 Univers menthoL 6-15 ge} Lozenge by ity of lozenge 00:00: mouth [place] 00 every 4 Medical (four) Branch hours as needed for Sore throat. magnesium Yes [id number] 400mg Take 1 U nivers oxide 400 6-15 capsule by ity of mg 00:00: mouth [place] magnesium 00 daily. Medical capsule Branch benzocaine- Yes [id number] 1{lozen Take 1 Univers menthoL 6-15 ge} Lozenge by ity of lozenge 00:00: mouth [place] 00 every 4 Medical (four) Branch hours as needed for Sore throat. magnesium 2022-0 Yes [id number] 400mg Take 1 U nivers oxide 400 6-15 capsule by ity of mg 00:00: mouth [place] magnesium 00 daily. Medical capsule Branch benzocaine- Yes [id number] 1{lozen Take 1 Univers menthoL 6-15 ge} Lozenge by ity of lozenge 00:00: mouth [place] 00 every 4 Medical (four) Branch hours as needed for Sore throat. magnesium 2021-0 Yes [id number] 400mg Take 1 U nivers oxide 400 6-15 capsule by ity of mg 00:00: mouth [place] magnesium 00 daily. Medical capsule Branch benzocaine- Yes [id number] 1{lozen Take 1 Univers menthoL 6-15 ge} Lozenge by ity of lozenge 00:00: mouth [place] 00 every 4 Medical (four) Branch hours as needed for Sore throat. magnesium 0 Yes [id number] 400mg Take 1 U nivers oxide 400 6-15 capsule by ity of mg 00:00: mouth [place] magnesium 00 daily. Medical capsule Branch benzocaine- Yes [id number] 1{lozen Take 1 Univers menthoL 6-15 ge} Lozenge by ity of lozenge 00:00: mouth [place] 00 every 4 Medical (four) Branch hours as needed for Sore throat. magnesium 0 Yes [id number] 400mg Take 1 U nivers oxide 400 6-15 capsule by ity of mg 00:00: mouth [place] magnesium 00 daily. Medical capsule Branch benzocaine- Yes [id number] 1{lozen Take 1 Univers menthoL 6-15 ge} Lozenge by ity of lozenge 00:00: mouth [place] 00 every 4 Medical (four) Branch hours as needed for Sore throat. magnesium 0 Yes [id number] 400mg Take 1 U nivers oxide 400 6-15 capsule by ity of mg 00:00: mouth [place] magnesium 00 daily. Medical capsule Branch benzocaine- Yes [id number] 1{lozen Take 1 Univers menthoL 6-15 ge} Lozenge by ity of lozenge 00:00: mouth [place] 00 every 4 Medical (four) Branch hours as needed for Sore throat. magnesium 2021-0 Yes [id number] 400mg Take 1 U nivers oxide 400 6-15 capsule by ity of mg 00:00: mouth [place] magnesium 00 daily. Medical capsule Branch benzocaine- Yes [id number] 1{lozen Take 1 Univers menthoL 6-15 ge} Lozenge by ity of lozenge 00:00: mouth [place] 00 every 4 Medical (four) Branch hours as needed for Sore throat. magnesium Yes [id number] 400mg Take 1 U nivers oxide 400 6-15 capsule by ity of mg 00:00: mouth [place] magnesium 00 daily. Medical capsule Branch metFORMIN 0 Yes 1000mg Take 1,[address] [facility] (GLUCOPHAGE 3-29 mg by [facility] ) 1000 MG 15:36: mouth 2 Medic al tablet 54 (two) Center times daily with breakfast and dinner. omeprazole 0 Yes 20mg QD Take [address] (PRILOSEC) 3-29 by mouth [facility] 20 MG 15:36: daily. Medical capsule 54 [place] ferrous 0 Yes 325mg Take 325 [facility] sulfate 325 3-29 mg by [facility] (65 FE) MG 15:36: mouth Medica l tablet 54 daily with Center breakfast. cyanocobala 0 Yes 1000ug QD Take 1,[address] min 1000 3-29 mcg by [facility] MCG tablet 15:36: mouth Medica l 54 daily. Center aspirin 81 2015-0 Yes 81mg QD Take [address] MG EC 3-29 by mouth [facility] tablet 15:36: daily. [facility] 54 Center cyclobenzap 2015-0 Yes 10mg Take [address] rine 3-29 by mouth 2 [facility] (FLEXERIL) 15:36: (two) Medica l 10 MG 54 times Center tablet daily as needed for Muscle spasms. simvastatin 2016-0 Yes 20mg QD Take [address] (ZOCOR) 20 3-29 by mouth [facility] MG tablet 15:36: nightly. [facility] 54 Center metFORMIN 2016-0 Yes 1000mg Take 1,[address] (GLUCOPHAGE 3-29 mg by [facility] ) 1000 MG 15:36: mouth 2 Medic al tablet 54 (two) Center times daily with breakfast and dinner. omeprazole 2016-0 Yes 20mg QD Take [address] (PRILOSEC) 3-29 by mouth [facility] 20 MG 15:36: daily. [facility] 54 [place] ferrous 2016-0 Yes 325mg Take 325 [facility] sulfate 325 3-29 mg by [facility] (65 FE) MG 15:36: mouth Medica l tablet 54 daily with Center breakfast. cyanocobala 2016-0 Yes 1000ug QD Take 1,[address] min 1000 3-29 mcg by [facility] MCG tablet 15:36: mouth Medica l 54 daily. [place] aspirin 81 2016-0 Yes 81mg QD Take [address] MG EC 3-29 by mouth [facility] tablet 15:36: daily. [address] cyclobenzap 2016-0 Yes 10mg Take [address] rine 3-29 by mouth 2 [facility] (FLEXERIL) 15:36: (two) Medica l 10 MG 54 times Center tablet daily as needed for Muscle spasms. simvastatin 2016-0 Yes 20mg QD Take [address] (ZOCOR) 20 3-29 by mouth [facility] MG tablet 15:36: nightly. [address] metFORMIN 2016-0 Yes 1000mg Take 1,[address] (GLUCOPHAGE 3-29 mg by [facility] ) 1000 MG 15:36: mouth 2 Medic al tablet 54 (two) Center times daily with breakfast and dinner. omeprazole 2016-0 Yes 20mg QD Take [address] (PRILOSEC) 3-29 by mouth [facility] 20 MG 15:36: daily. Medical [facility] 54 [place] ferrous 2016-0 Yes 325mg Take 325 [facility] sulfate 325 3-29 mg by [facility] (65 FE) MG 15:36: mouth Medica l tablet 54 daily with Center breakfast. cyanocobala 2016-0 Yes 1000ug QD Take 1,[address] min 1000 3-29 mcg by [facility] MCG tablet 15:36: mouth Medica l 54 daily. [place] aspirin 81 2016-0 Yes 81mg QD Take [address] MG EC 3-29 by mouth [facility]ukes tablet 15:36: daily. [address] cyclobenzap 2016-0 Yes 10mg Take [address] rine 3-29 by mouth 2 [facility] (FLEXERIL) 15:36: (two) Medica l 10 MG 54 times Center tablet daily as needed for Muscle spasms. simvastatin 2016-0 Yes 20mg QD Take [address] (ZOCOR) 20 3-29 by mouth [facility] MG tablet 15:36: nightly. [address] metFORMIN Yes 1000mg Take 1,[address] (GLUCOPHAGE 3-29 mg by [facility] ) 1000 MG 15:36: mouth 2 Medic al tablet 54 (two) Center times daily with breakfast and dinner. omeprazole 2016- Yes 20mg QD Take [address] (PRILOSEC) 3-29 by mouth [facility] 20 MG 15:36: daily. [facility] capsule [address] [place] [address] ferrous 0 Yes 325mg Take 325 [facility] sulfate 325 3-29 mg by [facility] (65 FE) MG 15:36: mouth Medica l tablet 54 daily with Center breakfast. cyanocobala Yes 1000ug QD Take 1,[address] min 1000 3-29 mcg by [facility] MCG tablet 15:36: mouth Medica l 54 daily. [place] aspirin 81 Yes 81mg QD Take [address] MG EC 3-29 by mouth [facility] tablet 15:36: daily. [address] cyclobenzap Yes 10mg Take [address] rine 3-29 by mouth 2 [facility] (FLEXERIL) 15:36: (two) Medica l 10 MG 54 times Center tablet daily as needed for Muscle spasms. simvastatin Yes 20mg QD Take [address] (ZOCOR) 20 3-29 by mouth [facility] MG tablet 15:36: nightly. [address] insulin Yes To use 12 [facility] lispro 3-20 to 36 [facility] (HUMALOG 00:00: units Medical KWIKPEN) 00 three Center 100 unit/mL times a InPn day by sliding scale. BD Yes Use as [facility] Ultra-Fine 3-20 directed. Luke s Meli 00:00: Dispense Medical Insulin Pen 00 as Center [place] 4 written, mm x 32 G do [...] Dispense Medical Insulin Pen 00 as Center [place] 4 written, mm x 32 G do [...] Dispense Medical Insulin Pen 00 as Center [place] 4 written, mm x 32 G do not substitute . Brand medically necessary. To use 6 a day. insulin Yes To use 30 [facility] detemir 3-20 units q am [facility] (LEVEMIR 00:00: and 20 Medical FLEXTOUCH) 00 units q 9 Cent er 100 unit/mL pm. (3 mL) InPn injection insulin Yes To use 30 [facility] [...] Dispense Medical Insulin Pen 00 as Center [place] 4 written, mm x 32 G do [...] 4-6 hours as needed. Insulin 0 Yes [id number] Use as Univ ers [place], 5-11 directed ity of Disposable, 00:00: daily [place] (BD 00 Medical ULTRAFINE Branch III MINI PEN) 31 x 3/16 " Ndle Insulin 0 Yes [id number] Use as Univ ers [place], 5-11 directed ity of Disposable, 00:00: daily [place] (BD 00 Medical ULTRAFINE Branch III MINI PEN) 31 x 3/16 " Ndle Insulin 0 Yes [id number] Use as Univ ers [place], 5-11 directed ity of Disposable, 00:00: daily [place] (BD 00 Medical ULTRAFINE Branch III MINI PEN) 31 x 3/16 " Ndle Insulin 0 Yes [id number] Use as Univ ers [place], 5-11 directed ity of Disposable, 00:00: daily [place] (BD 00 Medical ULTRAFINE Branch III MINI PEN) 31 x 3/16 " Ndle Insulin 0 Yes [id number] Use as Univ ers [place], 5-11 directed ity of Disposable, 00:00: daily [place] (BD 00 Medical ULTRAFINE Branch III MINI PEN) 31 x 3/16 " Ndle Insulin 0 Yes [id number] Use as Univ ers [place], 5-11 directed ity of Disposable, 00:00: daily [place] (BD 00 Medical ULTRAFINE Branch III MINI PEN) 31 x 3/16 " Ndle Insulin 2015-0 Yes [id number] Use as Univ ers [place], 5-11 directed ity of Disposable, 00:00: daily [place] (BD 00 Medical ULTRAFINE Branch III MINI PEN) 31 x 3/16 " Ndle Insulin 0 Yes [id number] Use as Univ ers [place], 5-11 directed ity of Disposable, 00:00: daily [place] (BD 00 Medical ULTRAFINE Branch III MINI PEN) 31 x 3/16 " Ndle Insulin 2014-0 Yes [id number] Use as Univ ers [place], 5-11 directed ity of Disposable, 00:00: daily [place] (BD 00 Medical ULTRAFINE Branch III MINI PEN) 31 x 3/16 " Ndle aspirin 81 0 Yes 81mg Take 1 Tab U nivers mg chewable 3-29 by mouth ity of tablet 00:00: daily. [place] Medical Branch vitamin 2014-0 Yes 1000ug Take 1 Tab Un irma B-12 3-29 by mouth ity of ([place]AN[place] [facility] 1,000 00 Medical mcg tablet Branch aspirin 81 0 Yes 81mg Take 1 Tab U nivers mg chewable 3-29 by mouth ity of tablet 00:00: daily. [place] [facility] vitamin 2014-0 Yes 1000ug Take 1 Tab Un irma B-12 3-29 by mouth ity of (CYANOCOBAL [place] [facility] 1,000 00 Medical mcg tablet Branch aspirin 81 0 Yes 81mg Take 1 Tab U nivers mg chewable 3-29 by mouth ity of tablet 00:00: daily. [place] [facility] vitamin 2014-0 Yes 1000ug Take 1 Tab Un irma B-12 3-29 by mouth ity of (CYANOCOBAL [place] [facility] 1,000 00 Medical mcg tablet Branch aspirin 81 2014-0 Yes 81mg Take 1 Tab U nivers mg chewable 3-29 by mouth ity of tablet 00:00: daily. [place] [facility] vitamin 2015-0 Yes 1000ug Take 1 Tab Un irma B-12 3-29 by mouth ity of (CYANOCOBAL [place] [facility] 1,000 00 Medical mcg tablet Branch aspirin 81 2014-0 Yes 81mg Take 1 Tab U nivers mg chewable 3-29 by mouth ity of tablet 00:00: daily. [place] [facility] vitamin Yes 1000ug Take 1 Tab Un irma B-12 3-29 by mouth ity of (CYANOCOBAL [place] [facility] 1,000 00 Medical mcg tablet Branch aspirin 81 Yes 81mg Take 1 Tab U nivers mg chewable 3-29 by mouth ity of tablet 00:00: daily. [place] [facility] vitamin Yes 1000ug Take 1 Tab Un irma B-12 3-29 by mouth ity of (CYANOCOBAL [place] [facility] 1,000 00 Medical mcg tablet Branch aspirin 81 Yes 81mg Take 1 Tab U nivers mg chewable 3-29 by mouth ity of tablet 00:00: daily. [facility] vitamin Yes 1000ug Take 1 Tab Un irma B-12 3-29 by mouth ity of (CYANOCOBAL [place] [facility] 1,000 00 Medical mcg tablet Branch aspirin Yes 81mg Take 1 Tab U nivers mg chewable 3-29 by mouth ity of tablet 00:00: daily. [place] [facility] vitamin Yes 1000ug Take 1 Tab Un irma B-12 3-29 by mouth ity of (CYANOCOBAL [place] [facility] 1,000 00 Medical mcg tablet Branch aspirin 81 Yes 81mg Take 1 Tab U nivers mg chewable 3-29 by mouth ity of tablet 00:00: daily. [place] [facility] vitamin Yes 1000ug Take 1 Tab Un irma B-12 3-29 by mouth ity of (CYANOCOBAL [place] [facility] 1,000 00 Medical mcg tablet Branch albuterol albuterol No albuterol [place] sulfate HFA sulfate HFA sulfate Family 90 90 HFA 90 Practic mcg/actuati mcg/actuati mcg/actuat e on aerosol on aerosol ion inhaler inhaler aerosol inhaler alprazolam alprazolam No 1 alprazolam [place] 0.25 mg 0.25 mg 0.25 mg Family tablet Take tablet Take tablet Practic 1 tablet as 1 tablet as Take 1 e needed by needed by tablet as oral route oral route needed by for 30 for 30 oral route days. days. for 30 days. amiodarone amiodarone No amiodarone [facility] 200 mg 200 mg 200 [...] BD Insulin BD Insulin No BD Insulin [facility] Syringe Syringe Syringe [facility] Ultra-Fine Ultra-Fine Ultra-Fine Pract[facility] 0.3 mL 31 0.3 mL 31 0.3 mL 31 e gauge x gauge x gauge x 16" 16" 09/29" bumetanide bumetanide No .5 Q1D bumetanide [facility] 2 mg tablet 2 mg [...] No Dulcolax Raya nuno (bisacodyl) (bisacodyl) (bisacodyl [facility] 1 cup daily 1 cup daily ) 1 cup Practic daily e folic acid folic acid No 1 Q1D folic acid [facility] 1 mg tablet 1 mg tablet 1 mg F amily Take 1 Take 1 tablet Practic tablet tablet Take 1 e every day every day tablet by oral by oral every day route. route. by oral route. lisinopril lisinopril No 1 Q1D lisinopril [facility] 5 mg tablet 5 mg tablet 5 mg F amily Take 1 Take 1 tablet Practic tablet tablet Take 1 e every day every day tablet by oral by oral every day route for route for by oral 90 days. 90 days. route for 90 days. magnesium magnesium No 1 Q1D magnesium [facility] 400 mg (as 400 mg (as 400 mg (as [facility] magnesium magnesium magnesium Practic oxide) oxide) [...] e omeprazole omeprazole No 1capsul Q1D omeprazole [facility] 40 mg 40 mg e(s) [...] days. paroxetine paroxetine No 1 Q1D paroxetine [facility] 20 mg 20 mg 20 mg Family tablet Take tablet Take tablet Practic 1 tablet 1 tablet Take 1 e every day every day tablet by oral by oral every day route for route for by oral 30 days. 30 days. route for 30 days. sertraline sertraline No sertraline [facility] 50 mg 50 mg 50 [...] 2021-01-21 Completed [facility] - 08:50:00 [facility] Hyalgan 20 mg Hyalgan 20 mg 2021-01-21 Completed [facility] - 08:50:00 [facility] Hyalgan 20 mg Hyalgan 20 mg 2021-01-21 Completed [facility] - 08:50:00 [facility] Hyalgan 20 mg Hyalgan 20 mg 2021-01-14 Completed [facility] - 09:17:00 [facility] Hyalgan 20 mg Hyalgan 20 mg 2021-01-14 Completed [facility] - 09:17:00 [facility] Hyalgan 20 mg Hyalgan 20 mg 2021-01-14 Completed [facility] - 09:17:00 [facility] Hyalgan 20 mg Hyalgan 20 mg 2021-01-14 Completed [facility] - 09:17:00 [facility] Bupivicaine [place] Bupivicaine [place] 2021-01-07 Completed [facility] 13:41:00 [facility] Kenalog Kenalog 2021-01-07 Completed [facility] - (Triamcinolone) (Triamcinolone) 13:41:00 [facility] Bupivicaine [place] Bupivicaine [place] 2021-01-07 Completed [facility] 13:41:00 [facility] Kenalog Kenalog 2021-01-07 Completed [facility] (Triamcinolone) (Triamcinolone) 13:41:00 [facility] Bupivicaine [place] Bupivicaine [place] 2021-01-07 Completed [facility] 13:41:00 [facility] Kenalog Kenalog 2021-01-07 Completed [facility] (Triamcinolone) (Triamcinolone) 13:41:00 [facility] Bupivicaine [place] Bupivicaine [place] 2021-01-07 Completed [facility] 13:41:00 [facility] Kenalog Kenalog 2021-01-07 Completed [facility] (Triamcinolone) (Triamcinolone) 13:41:00 [facility] Bupivicaine [place] Bupivicaine [place] 2021-01-07 Completed [facility] 13:41:00 [facility] Kenalog Kenalog 2021-01-07 Completed [facility] (Triamcinolone) (Triamcinolone) 13:41:00 [facility] Hyalgan 20 mg Hyalgan 20 mg 2021-01-07 Completed [facility] - 13:40:00 [facility] Hyalgan 20 mg Hyalgan 20 mg 2021-01-07 Completed [facility] - 13:40:00 [facility] Hyalgan 20 mg Hyalgan 20 mg 2021-01-07 Completed [facility] - 13:40:00 [facility] Hyalgan 20 mg Hyalgan 20 mg 2021-01-07 Completed [facility] - 13:40:00 [facility] Hyalgan 20 mg Hyalgan 20 mg 2021-01-07 Completed [facility] - 13:40:00 [facility] influenza, influenza, 2019-03-09 Completed [facility] unspecified unspecified 00:00:00 Practice formulation formulation Meningococcal 2014-08-24 Completed University of Polysaccharide 00:00:00 [place] [facility] (groups A, C, Y and Branc h W-135) conjugate vaccine (MCV4P) Heamophilus Influenza 2014-08-24 Completed Uni versity of B 00:00:00 [facility] Meningococcal 2014-08-24 Completed University of Polysaccharide 00:00:00 [place] [facility] (groups A, C, Y and Branc h W-135) conjugate vaccine (MCV4P) Heamophilus Influenza 2014-08-24 Completed Uni versity of B 00:00:00 [facility] Meningococcal 2014-08-24 Completed University of Polysaccharide 00:00:00 [place] [facility] (groups A, C, Y and Branc h W-135) conjugate vaccine (MCV4P) Heamophilus Influenza 2014-08-24 Completed Uni versity of B 00:00:00 [facility] Meningococcal 2014-08-24 Completed University of Polysaccharide 00:00:00 [place] [facility] (groups A, C, Y and Branc h W-135) conjugate vaccine (MCV4P) Heamophilus Influenza 2014-08-24 Completed Uni versity of B 00:00:00 [facility] Meningococcal 2014-08-24 Completed University of Polysaccharide 00:00:00 [place] [facility]al (groups A, C, Y and Branc h W-135) conjugate vaccine (MCV4P) Heamophilus Influenza 2014-08-24 Completed Uni versity of B 00:00:00 [facility] Meningococcal 2014-08-24 Completed University of Polysaccharide 00:00:00 [place] [facility] (groups A, C, Y and Branc h W-135) conjugate vaccine (MCV4P) Heamophilus Influenza 2014-08-24 Completed Uni versity of B 00:00:00 [facility] Meningococcal 2014-08-24 Completed University of Polysaccharide 00:00:00 [place] [facility] (groups A, C, Y and Branc h W-135) conjugate vaccine (MCV4P) Heamophilus Influenza 2014-08-24 Completed Uni versity of B 00:00:00 [facility] Meningococcal 2014-08-24 Completed University of Polysaccharide 00:00:00 [place] [facility] (groups A, C, Y and Branc h W-135) conjugate vaccine (MCV4P) Heamophilus Influenza 2014-08-24 Completed Uni versity of B 00:00:00 [facility] Meningococcal 2014-08-24 Completed University of Polysaccharide 00:00:00 [place] [facility] (groups A, C, Y and Branc h W-135) conjugate vaccine (MCV4P) Heamophilus Influenza 2014-08-24 Completed Uni versity of B 00:00:00 [facility] Pneumococcal 2014-08-12 Completed University o f Polysaccharide, 00:00:00 [facility] ical PPSV23 (PNEUMOVAX) Branch Influenza Virus 2014-08-12 Completed Universit y of Vaccine Quad IM 3+ 00:00:00 [facility] Pneumococcal 2014-08-12 Completed University o f Polysaccharide, 00:00:00 [facility] ical PPSV23 (PNEUMOVAX) Branch Influenza Virus 2014-08-12 Completed Universit y of Vaccine Quad IM 3+ 00:00:00 [facility] Pneumococcal 2014-08-12 Completed University o f Polysaccharide, 00:00:00 [facility] ical PPSV23 (PNEUMOVAX) Branch Influenza Virus 2014-08-12 Completed Universit y of Vaccine Quad IM 3+ 00:00:00 [facility] Pneumococcal 2014-08-12 Completed University o f Polysaccharide, 00:00:00 [facility] ical PPSV23 (PNEUMOVAX) Branch Influenza Virus 2014-08-12 Completed Universit y of Vaccine Quad IM 3+ 00:00:00 [facility] Pneumococcal 2014-08-12 Completed University o f Polysaccharide, 00:00:00 [place] [facility] ical PPSV23 (PNEUMOVAX) Branch Influenza Virus 2014-08-12 Completed Universit y of Vaccine Quad IM 3+ 00:00:00 [facility] Pneumococcal 2014-08-12 Completed University o f Polysaccharide, 00:00:00 [place] [facility] ical PPSV23 (PNEUMOVAX) Branch Influenza Virus 2014-08-12 Completed Universit y of Vaccine Quad IM 3+ 00:00:00 [facility] Pneumococcal 2014-08-12 Completed University o f Polysaccharide, 00:00:00 [place] [facility] ical PPSV23 (PNEUMOVAX) Branch Influenza Virus 2014-08-12 Completed Universit y of Vaccine Quad IM 3+ 00:00:00 [facility] Pneumococcal 2014-08-12 Completed University o f Polysaccharide, 00:00:00 [place] [facility] ical PPSV23 (PNEUMOVAX) Branch Influenza Virus 2014-08-12 Completed Universit y of Vaccine Quad IM 3+ 00:00:00 [facility] Pneumococcal 2014-08-12 Completed University o f Polysaccharide, 00:00:00 [place] [facility] ical PPSV23 (PNEUMOVAX) Branch Influenza Virus 2014-08-12 Completed Universit y of Vaccine Quad IM 3+ 00:00:00 [facility] Vital Signs Vital Name Observation Time Observation Value Comments Source Systolic blood 2022-04-09 04:30:00 138 [facility]Hg[facility] Diastolic blood 2022-04-09 04:30:00 97 mm[Hg] [facility] Heart rate 2022-04-09 04:30:00 60 /min [facility] Respiratory rate 2022-04-09 04:30:00 17 /min [facility] Oxygen saturation in 2022-04-09 04:30:00 100 /min [facility] Arterial blood by [facility] Pulse oximetry [place] Body temperature 2022-04-09 02:00:00 36.78 Nora [facility] Body height 2022-01-23 16:36:00 172.7 cm [facility] Body weight 2022-01-23 16:36:00 91.173 kg [facility] BMI 2022-01-23 16:36:00 30.56 kg/m2 [facility] height 2021-01-21 08:30:00 68 [in_i] [facility] weight 2021-01-21 08:30:00 226 [lb_av] [facility] temperature 2021-01-21 08:30:00 97.7 [degF] [facility] bmi 2021-01-21 08:30:00 34.36 kg/m2 [facility] blood pressure 2021-01-21 08:30:00 130 mm[Hg] [facility] - systolic [facility] blood pressure 2021-01-21 08:30:00 84 mm[Hg] [facility] - diastolic [facility] height 2021-01-14 08:30:00 68 [in_i] [facility] weight 2021-01-14 08:30:00 226 [lb_av] [facility] temperature 2021-01-14 08:30:00 97.5 [degF] [facility] - [facility] bmi 2021-01-14 08:30:00 34.36 kg/m2 [facility] - [facility] blood pressure 2021-01-14 08:30:00 126 mm[Hg] [facility] - systolic [facility] blood pressure 2021-01-14 08:30:00 74 mm[Hg] [facility] diastolic [facility] height 2021-01-07 13:00:00 68 [in_i] [facility] weight 2021-01-07 13:00:00 226 [lb_av] [facility] temperature 2021-01-07 13:00:00 98.7 [degF] [facility] - [facility] bmi 2021-01-07 13:00:00 34.36 kg/m2 [facility] blood pressure 2021-01-07 13:00:00 132 mm[Hg] [facility] systolic [facility] blood pressure 2021-01-07 13:00:00 84 mm[Hg] [facility] diastolic [facility] height 2021-01-02 13:30:00 68 [in_i] [facility] weight 2021-01-02 13:30:00 226 [lb_av] [facility] bmi 2021-01-02 13:30:00 34.36 kg/m2 [facility] blood pressure 2021-01-02 13:30:00 132 mm[Hg] [facility] systolic [facility] blood pressure 2021-01-02 13:30:00 86 mm[Hg] [facility] diastolic [facility] BP Diastolic 2019-08-07 00:00:00 76 mm[Hg] [facility] Height 2019-08-07 00:00:00 68.5 [in_i] [facility] BP Systolic 2019-08-07 00:00:00 120 mm[Hg] [facility] BP Diastolic 2019-07-17 00:00:00 70 mm[Hg] [facility] Height 2019-07-17 00:00:00 68.5 [in_i] [facility] BMI (Body Mass 2019-07-17 00:00:00 34.5 kg/m2 [facility] BP Systolic 2019-07-17 00:00:00 126 mm[Hg] [facility] Body Weight 2019-07-17 00:00:00 230 [lb_av] [facility] Procedures Procedure Date / Time Performing Clinician Source Performed XR CHEST 2 VW 2022-04-09 03:59:00 [facility] TROPONIN I 2022-04-09 03:35:00 [facility] COMP. METABOLIC PANEL 2022-04-09 03:35:00 Vincent Rader [facility] ([id number]) [facility] CBC WITH DIFF 2022-04-09 03:35:00 [facility] RAPID INFLUENZA A/B 2022-04-09 03:35:00 Vincent Rader [facility] N-TERMINAL PRO-BNP 2022-04-09 03:35:00 Vincent Rader [facility] NOTICE OF PRIVACY 2022-04-09 02:38:07 Doctor Unassigned, No [facility] PRACTICES Name Medical Branch CONSENT/REFUSAL FOR 2022-04-09 02:37:20 Doctor Unassigned, No [facility] [place] DIAGNOSIS AND TREATMENT Name [facility] AUTHORIZATION FOR 2022-03-12 05:01:00 Doctor Unassigned, No [facility] Name [facility] HOME HEALTH - OTHER 2022-01-14 05:01:00 Doctor Unassigned, No Un iversity of [facility] Plan of Care Planned Activity Planned Date [...] Facility Department ID 2022-04-16 Inpatient SMITA HINTON [facility] Med [id number] [address] 02:42:53 [facility] 2022-04-16 Inpatient SMITA HINTON [facility] Med [id number] 02:35:02 [facility] 2021-12-18 Outpatient 3 [id number] E[facility] REF [id number] [facility] 08:29:43 [facility] [place] [facility] 2021-12-10 Outpatient 3 [id number] ENCPL REF [id number] [facility] 12:33:31 [facility] [place] 2021-12-09 Outpatient 3 [id number] ENCPL REF [id number] [facility] 14:43:46 [facility]26 [facility] [place] 2021-06-17 Outpatient IBNS IBNS [id number] Artemio 12:27:28 [id number] [place] 2021-06-11 Outpatient STLMLC STLMLC [id number] Common 13:40:33 [id number] [facility] 2019-09-07 [id number] [facility] 10:28:52 АЛЕКСАНДР 2022-04-08 2022-04-08 Emergency X AUFDERHEIDE [facility] ERT [id number] Univers 20:54:00 22:51:00 , VINCENT muhammad of [facility] 2022-04-08 2022-04-08 Emergency Aufderheide [facility] 1.2.840.114 [id number] Univers 20:54:00 22:51:00 , Vincent GONZALEZ 350.1.13.10 i ty of Caterina [place].2.[place] [id number] [place] [id number] [place] 2022-04-08 2022-04-08 Orders Doctor YANDEL 1.2.840.114 [id number] Univers 00:00:00 00:00:00 Only Unassigned, ANIL 350.1.13.10 ity of [place] 4.2.7.2.686 Jad as [id number] [address] 2022-03-12 2022-03-12 Orders Doctor YANDEL 1.2.840.114 [id number] Univers 00:00:00 00:00:00 Only Unassigned, ANIL 350.1.13.10 ity of [place] [facility] [facility] 4.2.7.2.686 Jad as [id number] [address] 2022-02-12 2022-02-[address] [facility] 1.2.840.114 [id number] Univers 00:00:00 00:00:00 [facility] 350.1.13.10 it y of [place] 4.2.7.2.686 Jad as CANDACE?BLEA [phone] [facility] [address] MEDICAL OFFICE [facility] 2022-02-03 2022-02-[address] [facility] 1.2.840.114 [id number] Univers 00:00:00 00:00:00 BenitezSingleFeed 350.1.13.10 it y of [place] 4.2.7.2.686 Jad as CANDACE?BLEA [id number] Hi dic[address] MEDICAL OFFICE BUILDING 2022-01-26 2022-01-[address] [facility] 1.2.840.114 [id number] Univers 00:00:00 00:00:00 AboutMyStar HEALTH 350.1.13.10 it y of [place] 4.2.7.2.686 Jad as CANDACE?BLEA [phone] Hi dimitri GARCIA [address] [facility] OFFICE [facility] 2022-01-26 2022-01-26 Telephone [facility] [id number] Univers 00:00:00 00:00:00 Glenny S HEALTH 350.1.13.10 it y of [place] 4.2.7.2.686 Jad as CANDACE?BLEA [phone] Hi dimitri GARCIA [address] [place] [address] OFFICE [facility] 2022-01-23 2022-01-23 [id number] Univers 11:15:00 12:22:27 GLENNY ity [facility] 2022-01-23 2022-01-23 Office [facility] 1.2.840.114 [id number] Univers 11:15:00 12:22:27 Visit Glenny S HEALTH 350.1.13.10 it y of [place] 4.2.7.2.686 Jad as CANDACE?BLEA [phone] Hi dimitri GARCIA [address] [place] [address] OFFICE [facility] 2022-01-23 2022-01-23 [facility] [id number] Univers 11:15:00 12:22:27 GLENNY ity [facility] 2022-01-14 2022-01-14 Orders Doctor YANDEL 1.2.840.114 [id number] Univers 00:00:00 00:00:00 Only Unassigned, ANIL 350.1.13.10 ity of [place] [facility] 4.2.7.2.686 Jad as [id number] [address] 2021-12-30 2021-12-30 Telephone [facility] 1.2.840.114 [id number] Univers 00:00:00 00:00:00 Benitez L HEALTH 350.1.13.10 it y of [place] 4.2.7.2.686 Jad as CANDACE?BLEA [id number] Hi dimitri GARCIA [address] [place] [address] OFFICE [facility] 2021-12-25 2021-12-25 [facility]phone [facility] 1.2.840.114 [id number] Univers 00:00:00 00:00:00 Benitez L HEALTH 350.1.13.10 it y of [place] 4.2.7.2.686 Jad as CANDACE?BLEA [phone] Hi dimitri GARCIA [address] [facility] OFFICE [facility] 2021-12-25 2021-12-[address] [facility] 1.2.840.114 [id number] Univers 00:00:00 00:00:00 Benitez L HEALTH 350.1.13.10 it y of [place] 4.2.7.2.686 Jad as CANDACE?BLEA [phone] Hi dimitri GARCIA [address] [facility] OFFICE [facility] 2021-12-23 2021-12-[address] [facility] 1.2.840.114 [id number] Univers 00:00:00 00:00:00 Benitez L HEALTH 350.1.13.10 it y of [place] 4.2.7.2.686 Jad as CANDACE?BLEA [phone] Hi dimitri GARCIA [address] [place] [address] OFFICE [facility] 2021-12-22 2021-12-22 Outpatient Day VIDAL [facility] [id number] Univers 15:40:00 23:59:00 [facility] 2021-12-22 2021-12-22 [facility]patient [facility] [id number] Univers 15:15:00 16:18:41 [facility] 2021-12-22 2021-12-22 Office [facility] 1.2.840.114 [id number] Univers 15:15:00 16:18:41 Visit [facility] 350.1.13.10 it y of [place] 4.2.7.2.686 Jad as CANDACE?BLEA [id number] Hi dimitri GARCIA [address] [place] [address] OFFICE [facility] 2021-12-22 2021-12-[address] [facility] 1.2.840.114 [id number] Univers 00:00:00 00:00:00 Benitez L HEALTH 350.1.13.10 it y of [place] 4.2.7.2.686 Jad as CANDACE?BLEA [phone] Hi dimitri GARCIA [address] [facility] OFFICE [facility] 2021-12-09 2021-12-[address] [facility] 1.2.840.114 [id number] Univers 00:00:00 00:00:00 Benitez Collazo HEALTH 350.1.13.10 [facility] 4.2.7.2.686 Jad as CANDACE?BLEA [phone] Hi dimitri ROLLINSEY [address] [place] MEDICAL OFFICE [facility] 2021-12-08 2021-12-08 [facility]patient [facility] [id number] Univers 10:44:00 16:02:00 BENITEZ ity of [facility] 2021-12-08 2021-12-[address] [facility] 1.2.840.114 [id number] Univers 10:44:00 16:02:00 Encounter Benitez Collazo LISA 350.1.13.10 ity of [place] [id number] [address] 2021-12-08 2021-12-[address] [facility] 1.2.191.134 [id number] Univers 12:45:00 14:29:00 Benitez GONZALEZ 350.1.13.10 i ty of [place] [id number] [address] 2021-12-08 2021-12-08 Orders Doctor YANDEL 1.2.840.114 [id number] Univers 00:00:00 00:00:00 Only Unassigned, ANIL 350.1.13.10 ity of [place] [facility] 4.2.7.2.686 Jad as [id number] [address] 2021-12-05 2021-12-05 Pick Up Worker Stephane, Adc Lab Main [facility] 1.2.8 40.114 [id number] Univers 09:15:00 09:30:00 Visit Benitez Berger LISA 350.1.13.10 ity of [place] [id number] Hi dimitri KRAMER [address] [facility] 2021-12-05 2021-12-05 Laboratory Only, Adc Test [facility] 1.2.840. 114 [id number] Univers 08:45:00 09:00:00 Only BergerBenitez 350.1.13.10 ity [facility] 4.2.[place].2.[place] [phone] [facility] [address] 2021-12-05 2021-12-05 Outpatient R AB [facility] [id number] Univers 09:34:20 08:59:00 BENITEZ ity of [facility] 2021-12-05 2021-12-05 [facility] 1.2.840.114 [id number] Univers 08:30:00 08:59:00 Encounter Benitez GONZALEZ 350.1.13.10 ity of [place] [phone] [facility] Shaw [address] 2021-12-02 2021-12-02 [facility] 1.2.840.114 [id number] Univers 00:00:00 00:00:00 Surgery Benitez Collazo HEALTH 350.1.13.10 it y of [facility] 4.2.7.2.686 Jad as CANDACE?BLEA [phone] Hi dimitri [facility] [address] MEDICAL OFFICE [facility] 2021-12-01 2021-12-01 Telephone [facility] 1.2.840.114 [id number] Univers 00:00:00 00:00:00 Benitez Collazo HEALTH 350.1.13.10 it y of [place] 4.2.7.2.686 Jad as CANDACE?BLEA [phone] [facility] [address] MEDICAL OFFICE [facility] 2021-12-01 2021-12-01 Orders Doctor YANDEL 1.2.840.114 [id number] Univers 00:00:00 00:00:00 Only Unassigned, ANIL 350.1.13.10 ity of [place] [facility] 4.2.7.2.686 Jad as [phone] [facility] [address] 2021-11-28 2021-11-[address] [facility] 1.2.840.114 [id number] Univers 00:00:00 00:00:00 Benitez Collazo HEALTH 350.1.13.10 it y [facility] 4.2.7.2.686 Jad as CANDACE?BLEA [phone] Hi dimitri [facility] [address] MEDICAL OFFICE BUILDING 2021-11-25 2021-11-25 Telephone [facility] 1.2.840.114 [id number] Univers 00:00:00 00:00:00 Benitez [email or web address] 350.1.13.10 it y of [place] 4.2.7.2.686 Jad as CANDACE?BLEA [phone] Hi dimitri GARCIA [address] [place] [address] OFFICE [facility] 2021-11-25 2021-11-25 Orders Doctor YANDEL 1.2.840.114 [id number] Univers 00:00:00 00:00:00 Only Unassigned, ANIL 350.1.13.10 ity of [place] [facility] 4.2.7.2.686 Jad as [id number] [address] 2021-11-24 2021-11-24 [facility] [id number] Univers 14:45:00 15:38:44 BENITEZBETTY muhammad [facility] 2021-11-24 2021-11-[address] [facility] 1..334.280 [id number] [id number] Univers 14:45:00 15:38:44 Visit Benitez [facility] 350.1.13.10 it y of [place] 4.2.7.2.686 Jad as CANDACE?BLEA [phone] Hi dimitri GARCIA [address] [place] [address] 2021-11-24 2021-11-24 Outpatient Day VIDAL [facility] [id number] Univers 10:15:00 10:15:00 GLENNY jimenezheidi [facility] 2021-11-13 2021-11-13 Emergency EM Oyebadejo, HCACL AERS [id number] [facility] 07:53:00 11:37:00 Oluwadolapo 65 Cl [facility] 2021-11-13 2021-11-13 Emergency EM Oyebadejo, HCACL [facility] G[facility]29 747-2 [facility] 07:53:00 07:53:00 Oluwadolapo [id number] Cl [facility] 2021-11-06 2021-11-06 Transition NAGI Narayanan 1.2.840.114 [id number] Univers 00:00:00 00:00:00 of Chip GRIERY 350.1.13.10 i ty of [place] [phone] [facility] [address] 2021-10-26 2021-11-05 Inpatient X HANNAH [facility] [id number] Univers 11:31:00 15:25:00 DIANE ity of [facility] 2021-10-26 2021-11-05 Hospital Mathew Raines [facility] 1.2.840.1 14 [id number] Univers 11:31:00 15:25:00 Encounter Kandy Sanchez 350.1.13.10 ity of Diane TapiaARELI 4.2.7.2.686 [facility] [phone] [facility] [address] 2021-09-26 2021-09-26 Office [facility] 1.2.840.114 [id number] Univers 10:30:00 11:00:00 Visit [facility] 350.1.13.10 it y of [place] 4.2.7.2.686 Jad as CANDACE?BLEA [phone] Hi dimitri GARCIA [address] MEDICAL OFFICE [facility] 2021-09-26 2021-09-26 Outpatient R YOUNG [facility] [id number] Univers 10:30:00 10:30:00 GLENNY muhammad [facility] 2021-09-26 2021-09-26 Outpatient Day VIDAL [facility] [id number] Univers 10:30:00 10:30:00 GLENNY heidi [facility] 2021-09-15 2021-09-15 Outpatient R KEERTHI [facility] [id number] Univers 12:56:02 23:59:00 VERONICA ity o f [facility] 2021-09-15 2021-09-15 [facility] 1.2.590.746 [id number] Univers 12:56:02 23:59:00 Encounter [facility] 350.1.13.10 ity [facility] 4.2.7.2.686 Jad as CANDACE?BLEA [phone] Hi dimitri GARCIA [address] MEDICAL OFFICE [facility] 2021-09-15 2021-09-15 [facility] 1.2.840.114 [id number] Univers 12:40:00 13:03:01 Care Veronica HEALTH 350.1.13.10 i ty of [facility] 4.2.7.2.686 Jad as CANDACE?BLEA [phone] Hi dimitri GARCIA 370 [facility] OFFICE [facility] 2021-07-25 2021-07-25 Outpatient Day VIDAL [facility] [id number] Univers 10:15:00 10:15:00 GLENNY ity [facility] 2021-07-24 2021-07-24 Telephone [facility] 1.2.479.165 [id number] Univers 00:00:00 00:00:00 Glenny S [place] 350.1.13.10 i ty of [place] [phone] Hi dimitri KRAMER 198 [facility] 2021-07-21 2021-07-21 Telephone [facility] 1.2.828.496 [id number] Univers 00:00:00 00:00:00 Glenny S HEALTH 350.1.13.10 it y of [place] 4.2.7.2.686 Jad as CANDACE?BLEA [phone] Hi dimitri GARCIA 198 [facility] 2021-07-18 2021-07-18 Orders Doctor HUMPHRIES 1.2.840.114 [id number] Univers 00:00:00 00:00:00 Only UnassignedANIL 350.1.13.10 ity of [place] [facility] 4.2.7.2.686 Jad as [phone] [address] 2021-07-07 2021-07-07 Outpatient Day VIDAL [facility] [id number] Univers 14:45:00 15:42:55 GLENNY muhammad [facility] 2021-06-30 2021-06-30 Outpatient Day VIDAL [facility] [id number] Univers 16:00:00 16:00:00 GLENNY muhammad [facility] 2021-06-27 2021-06-27 Orders Doctor YANDEL 1.2.840.114 [id number] Univers 00:00:00 00:00:00 Only Unassigned, ANIL 350.1.13.10 ity of [place] [facility] 4.2.7.2.686 Jad as [phone] [address] 2021-06-12 2021-06-12 Telephone [facility] 1.2.645.037 [id number] Univers 00:00:00 00:00:00 Glenny S HEALTH 350.1.13.10 it y of [place] 4.2.7.2.686 Jad as CANDACE?BLEA [phone] Hi dimitri GARCIA [address] [place] [address] OFFICE [facility] 2021-06-11 2021-06-11 Telephone [facility] 1.2.777.583 [id number] Univers 00:00:00 00:00:00 Glenny S HEALTH 350.1.13.10 it y of [place] 4.2.7.2.686 Jad as CANDACE?BLEA [phone] Hi dimitri [address] OFFICE [facility] 2021-06-06 2021-06-06 Outpatient R [facility] [id number] Univers 08:45:00 09:27:46 GLENNY ehidi [facility] 2021-06-06 2021-06-06 Office [facility] 1.2.840.114 [id number] Univers 08:45:00 09:00:00 Visit Glenny [facility] 350.1.13.10 it y of [place] 4.2.7.2.686 Jad as CANDACE?BLEA [phone] Hi dimitri GARCIA [address] [place] [address] OFFICE [facility] 2021-06-02 2021-06-02 Emergency X [facility] [id number] Univers 14:15:00 19:32:00 RADHA muhammad [facility] 2021-06-02 2021-06-02 Emergency X [facility] [id number] Univers 14:15:00 19:32:00 RADHA muhammad [facility] 2021-06-02 2021-06-02 Emergency [facility] 1.2.486.652 [id number] Univers 14:15:00 19:32:00 Radha GONZALEZ 350.1.13.10 ity of [place] [phone] [facility] [address] 2021-05-28 2021-05-28 Outpatient Davar_P VFP VFP [id number] [facility] 04:30:00 04:30:00 Family Practic e 2021-05-26 2021-05-26 Outpatient R [facility] [id number] Univers 15:15:00 23:59:00 GLENNY ity [facility] 2021-05-26 2021-05-26 Hospital [facility] 1.2.840.114 [id number] Univers 15:15:00 23:59:00 Encounter Glenny [facility] 350.1.13.10 ity of [place] 4.2.7.2.686 Jad as CANDACE?BLEA [phone] Hi olamidejyothi GARCIA 809 [facility] OFFICE [facility] 2021-05-26 2021-05-26 Outpatient Day [facility] [id number] Univers 15:15:00 16:33:32 GLENNY [facility] 2021-05-26 2021-05-26 Office [facility] 1.2.840.114 [id number] Univers 15:15:00 15:30:00 Visit [facility] 350.1.13.10 it y [facility] 4.2.7.2.686 Jad as CANDACE?BLEA [phone] Hi dimitri ROLLINS [address] MEDICAL OFFICE [facility] 2021-05-26 2021-05-26 Orders Doctor HUMPHRIES 1.2.840.114 [id number] Univers 00:00:00 00:00:00 Only Unassigned, ANIL 350.1.13.10 ity of [place] [facility] 4.2.7.2.686 Jad as [phone] [address] 2021-05-15 2021-05-15 Orders Doctor HUMPHRIES 1.2.840.114 [id number] Univers 00:00:00 00:00:00 Only Unassigned, ANIL 350.1.13.10 ity of [place] [facility] 4.2.7.2.686 Jad as [phone] [address] 2021-05-13 2021-05-13 Telephone Ab [facility] 1.2.840.114 [id number] Univers 00:00:00 00:00:00 Benitez Collazo [facility] 350.1.13.10 it y of [facility] 4.2.7.2.686 Jad as CANDACE?BLEA [phone] Hi dimitri GARCIA [address] [place] [address] MEDICAL OFFICE BUILDING 2021-05-12 2021-05-12 Outpatient R YOUNG [facility] S[facility] [id number] Univers 07:12:00 16:55:00 GLENNY ity of [facility] 2021-05-12 2021-05-12 [facility] Benitez Berger [facility] 1.2.840 .114 [id number] Univers 07:12:00 16:55:00 Encounter Glenny Vidal Carrillo LISA 350.1.13.10 ity of [place]ICAL [phone] [facility] [address] 2021-05-12 2021-05-12 Surgery Berger [facility] 1.2.324.644 [id number] Univers 09:00:00 11:18:00 Benitez GONZALEZ 350.1.13.10 i ty of [place]GICAL [phone] [facility] [address] 2021-05-12 2021-05-12 Orders Doctor HUMPHRIES 1.2.840.114 [id number] Univers 00:00:00 00:00:00 Only Unassigned, ANIL 350.1.13.10 ity of [place] [facility] 4.2.7.2.686 Jad as [phone] [facility] [address] 2021-05-09 2021-05-09 Laboratory Only, Adc Test [facility] 1.2.840. 114 [id number] Univers 09:45:00 10:00:00 Only Aldo Bustos 350.1.13.10 ity of [place] [phone] [facility] [address] 2021-05-09 2021-05-09 Outpatient Day BUSTOS [facility] [id number] Univers 09:45:00 09:45:00 ALDO muhammad of [facility] 2021-05-09 2021-05-09 Orders Doctor YANDEL 1.2.840.114 [id number] Univers 00:00:00 00:00:00 Only Unassigned, ANIL 350.1.13.10 ity of [place] [facility] 4.2.7.2.686 Jad as [id number] [facility] [address] 2021-05-08 2021-05-08 Outpatient R [facility] [id number] Univers 10:11:52 23:59:00 BENITEZ ity of [facility] 2021-05-08 2021-05-08 [facility] 1.2.840.114 [id number] Univers 10:11:52 23:59:00 Encounter Benitez GONZALEZ 350.1.13.10 ity [facility] [place].2.7.[place] [phone] [facility] [address] 2021-05-08 2021-05-08 [facility] 1.2.840.114 [id number] Univers 10:11:07 23:59:00 Encounter Benitez GONZALEZ 350.1.13.10 ity [facility] [place].2.[place] [phone] [facility] [address] 2021-05-08 2021-05-08 Pick Up Worker Stephane, Yuniel Lab Main [facility] 1.2.8 40.114 [id number] Univers 10:00:00 10:15:00 Visit Ab Benitez Vale GONZALEZ 350.1.13.10 ity of [place] [phone] Hi dical NAL 353 [facility] 2021-05-08 2021-05-[address] [facility] 1.2.840.114 [id number] Univers 00:00:00 00:00:00 Benitez Collazo HEALTH 350.1.13.10 it y [facility] 4.2.7.2.686 Jad as CANDACE?BLEA [phone] Hi dical KNEY [address] MEDICAL OFFICE BUILDING 2021-05-05 2021-05-05 Orders Doctor HUMPHRIES 1.2.840.114 [id number] Univers 00:00:00 00:00:00 Only Unassigned, ANIL 350.1.13.10 ity of [place] [facility] 4.2.7.2.686 Jad as [phone] [address] 2021-05-01 2021-05-01 Office Vidal [facility] 1.2.840.114 [id number] Univers 08:45:00 09:00:00 Visit [facility] 350.1.13.10 it y of [place] 4.2.7.2.686 Jad as CANDACE?BLEA [phone] Hi dimitri ROLLINS [address] MEDICAL OFFICE [facility] 2021-05-01 2021-05-01 Outpatient Day [facility] [id number] Univers 08:45:00 08:45:00 [facility] 2021-05-01 2021-05-01 Outpatient Day [facility] [id number] Univers 08:45:00 08:45:00 [facility] 2021-05-01 2021-05-01 [facility] 1.2.840.114 [id number] Univers 00:00:00 00:00:00 Surgery [facility] 350.1.13.10 it y of [facility] 4.2.7.2.686 Jad as CANDACE?BLEA [id number] Hi olamidejyothi [address] OFFICE [facility] 2021-04-28 2021-04-28 Orders Doctor YANDEL 1.2.840.114 [id number] Univers 00:00:00 00:00:00 Only Unassigned, ANIL 350.1.13.10 ity of [place] [facility] 4.2.7.2.686 Jad as [id number] [address] 2021-04-22 2021-04-22 [facility] [id number] Co mmon 00:00:00 00:00:00 [facility] 2021-04-18 2021-04-18 Telephone [facility] 1.2.840.114 [id number] Univers 00:00:00 00:00:00 Benitez L HEALTH 350.1.13.10 it y of [place] 4.2.7.2.686 Jad as CANDACE?BLEA [phone] Me dimitri GARCIA 198 [facility] OFFICE [facility] 2021-04-14 2021-04-14 Telephone [facility] 1.2.840.114 [id number] Univers 00:00:00 00:00:00 Benitez TY 350.1.13.10 it y [facility] 4.2.7.2.686 Jad as CANDACE?BLEA [phone] Me dimitri GARCIA 198 [facility] OFFICE [facility] 2021-04-07 2021-04-07 Outpatient R [facility] [id number] Univers 14:00:00 23:59:00 [facility] 2021-04-07 2021-04-[address] [facility] 1.2.840.114 [id number] Univers 14:00:00 23:59:00 Encounter Benitez Collazo [facility] 350.1.13.10 ity of [place] 4.2.7.2.686 Jad as CANDACE?BLEA [phone] Hi dimitri GARCIA 809 [facility] 2021-04-07 2021-04-07 Outpatient [facility] [id number] Univers 14:00:00 15:00:54 BENITEZ muhammad [facility] 2021-04-07 2021-04-[address] [facility] 1.2.418.667 [id number] Univers 13:56:59 15:00:54 Visit Benitez Collazo [facility] 350.1.13.10 it y of [facility] 4.2.7.2.686 Jad as CANDACE?BLEA [phone] Hi dimitri GARCIA [address] MEDICAL OFFICE [facility] 2021-04-07 2021-04-07 Orders Doctor HUMPHRIES 1.2.840.114 [id number] Univers 00:00:00 00:00:00 Only Unassigned, ANIL 350.1.13.10 ity of [place] [facility] 4.2.7.2.686 Jad as [phone] [address] 2021-03-31 2021-03-31 Orders Doctor YANDEL 1.2.840.114 [id number] Univers 00:00:00 00:00:00 Only Unassigned, ANIL 350.1.13.[address] [facility] 4.2.7.2.686 Jad as [phone] [place] [address] 2021-02-10 2021-02-10 (TEL) STLMLC STLMLC [id number] Co mmon 00:00:00 00:00:00 [facility] 2021-01-21 2021-01-21 (TEL) STLMLC STLMLC [id number] Co mmon 00:00:00 00:00:00 [facility] 2021-01-21 2021-01-21 (IN/ASP) STLMLC STLMLC [id number] C ommon 00:00:00 00:00:00 INJ ASP [facility] 2021-01-14 2021-01-14 (IN/ASP) STLMLC STLMLC [id number] C ommon 00:00:00 00:00:00 INJ ASP [facility] 2021-01-07 2021-01-07 (IN/ASP) STLMLC STLMLC [id number] C ommon 00:00:00 00:00:00 INJ ASP [facility] 2021-01-06 2021-01-06 (TEL) STLMLC STLMLC [id number] Co mmon 00:00:00 00:00:00 [facility] 2021-01-02 2021-01-02 OFFICE STLMLC STLMLC [id number] Co mmon 00:00:00 00:00:00 VISIT NEW [facility] it PT LEVEL 4 [facility] 2020-07-09 2020-07-09 Outpatient Anderson_C VFP VFP [address] [place] [address] 01:37:00 01:37:00 63460 Family Practic e 2020-03-27 2020-03-27 Outpatient Anderson_C VFP VFP [address] 01:23:00 01:23:00 24352 Family Practic e 2019-08-14 2019-08-14 Outpatient Anderson_C VFP VFP [address] 02:20:00 02:20:00 50894 Family Practic e 2019-08-14 2019-08-14 Outpatient Fields_C VFP VFP [id number] [address] 02:20:00 02:20:00 46854 Family Practic e 2019-08-07 2019-08-07 Outpatient Anderson_C VFP VFP 7748 94202 [facility] 03:40:00 03:40:00 51315 Family Practic e 2019-08-07 2019-08-07 Cathlyn H VFP - [id number] [facility] 00:00:00 00:00:00 Ashley Luciomahnaz mullins MD: [id number] [facility] VM_HOU_Suga e Devin r [facility] [address], ([facility]) [place] [address] , Ph. 2019-08-04 2019-08-04 Outpatient Anderson_C VFP VFP 7748 94202 [facility] 09:28:00 09:28:00 93711 Family Practic e 2019-07-20 2019-07-20 Outpatient Fields_C VFP VFP [id number] 202 [facility] 02:00:00 02:00:00 04068 Family Practic e 2019-07-20 2019-07-20 Outpatient Anderson_C VFP VFP 7748 94202 [facility] 02:00:00 02:00:00 66600 Family Practic e 2019-07-18 2019-07-18 Outpatient Anderson_C VFP VFP 7748 94202 [facility] 12:04:00 12:04:00 01475 Family Practic e 2019-07-17 2019-07-17 Outpatient Anderson_C VFP VFP 7748 94202 [facility] 06:12:00 06:12:00 83933 Family Practic e 2019-07-17 2019-07-17 Cathlyn H VFP [place] - [id number] [facility] 00:00:00 00:00:00 Ashley Luciomahnaz mullins MD: [id number] [facility] VM_HOU_Suga jr Beltran r [facility] [address], ([facility]) [place] [address] , Ph. 2019-06-28 2019-06-28 Outpatient Fields_C VFP VFP [id number] 202 [facility] 02:57:00 02:57:00 19815 Family Practic e 2019-06-28 2019-06-28 Outpatient Fields_C VFP VFP [id number] 202 [facility] 02:57:00 02:57:00 98028 Family Practic e 2019-06-28 2019-06-28 Outpatient Fields_C VFP VFP [id number] -202 [facility] 02:57:00 02:57:00 88052 Family Practic e 2019-04-26 2019-04-26 Outpatient MHSE MHSE 7500 MH 07:22:00 07:22:00 [facility] Results Test Description Test Time Test [...] 34.2 g/dL 31.6-35.1 RDW-SD (test code = 37656-0) 45.7 fL 39.0-49.9 RDW-CV (test code = 788-0) 13.9 % 12.0-15.5 PLT (test code = 777-3) See_Comment H [Au tomated message] The system which ge nerated this result transmit octavio reference range: 166 - 35 8 10*3/?L. The reference range was not used to interpret th is result as normal/abnormal . MPV (test code = 43620-2) 9.1 fL 9.5-12.9 L NRBC/100 WBC (test code = See_Comment [ Automated message] The [id number]) system which Fatsoma nerated this result transmit octavio reference range: 0.0 - 10 .0 /100 WBCs. The reference r jorge was not used to interpr et this result as normal/abnor mal. NRBC x10^3 (test code = See_Comment [Au tomated message] The 6294205683) system which Fatsoma nerated this result transmit octavio reference range: 10*3/?L. The reference range was not u sed to interpret this result as normal/abnormal . SEG % (test code = 24948-2) 58 % 33-76 LYMPH % (test code = 31 % 14-54 91873-5) MONO % (test code = 40938-5) 8 % 0-4 H EOS % (test code = 28716-5) 3 % 0-3 ANC (test code = 753-4) 7.77 10*3/uL 1.88-7.09 H Lab Interpretation (test Abnormal code = 76285-1) [id number]:16[facility]23 Test Item Value Reference Interpretation Comments Range TROPONIN I (test 0.015 ng/mL See_Comment [Automated code = 8455548347) message] The system which generated this result [...] biotin. Lab Interpretation Normal (test code = 50342-8) [facility] [id number] 04:13:21 Test Item Value Reference Range Interpretation Comments NT-proBNP (test code 878 pg/mL See_Comment H [Autom ated = 2506531083) message] The system which generated this result transmitted reference range : <=125. The reference range was not used to interpret this result as normal/abnormal . LIZ (test code = LIZ) Biotin has been reported to cause a negative bias, interpret results relative to patient's use of biotin. Lab Interpretation Abnormal (test code = 79975-2) [facility]. METABOLIC PANEL (64504)2022-04-09 04:01:02 Test Item Value Reference Range Interpretation Comments NA (test code = 139 mmol/L 135-145 6748510255) K (test code = 3.2 mmol/L 3.5-5.0 L 2686132878) CL (test code = 97 mmol/L 98-108 L 4206769241) CO2 TOTAL (test code = 32 mmol/L 23-31 H 7341145085) AGAP (test code = 2-16 6449083590) BUN (test code = 11 mg/dL 7-23 8031254491) GLUCOSE (test code = 161 mg/dL 70-110 H 2348595256) CREATININE (test code = 1.05 mg/dL 0.50-1.04 H 0283749412) TOTAL BILI (test code = 0.4 mg/dL 0.1-1.4 1985594606) CALCIUM (test code = 8.8 mg/dL 8.6-10.6 3935071861) T PROTEIN (test code = 7.3 g/dL 6.3-8.2 5728686818) ALBUMIN (test code = 4.3 g/dL 3.5-5.0 0282239753) ALK PHOS (test code = 87 U/L 34-122 8713170915) ALTv (test code = 20 U/L 5-35 1742-6) AST(SGOT) (test code = 23 U/L 13-40 1336193167) eGFR (test code = mL/min/1.73m2 8264168597) LIZ (test code = LIZ) Association of [...] tests). Lab Interpretation Abnormal (test code = 66580-2) [facility]- XR TIBIA/FIBULA 2 V [id number] 00:00:00 [facility] : 1960 Sex: F FAX: Edith Akhtar MD [phone] [place]: [place] St: REG FAX: Reinaldo Prattap Name: DESTINY GARAY FSED : 1960 Age/S: 61/F [address] [facility] Unit #: [id number] Loc: [place] [address] Phys: Wendie Pratt MD Acct: [id number] Dis Date: Status: REG ER PHONE #: Exam Date: 11/13/2021 0900 FAX #:Reason: fall, s/p knee replacement EXAMS: CPT CODE: [id number] XR TIBIA/FIBULA 2 V RT [address]47 PROCEDUREINFORMATION: Exam: XR Right Tibia and Fibula Exam date and time: 11/13/2021 8:16 AM Age: 61 years oldClinical indication: Injury or trauma; Fall; Fracture, traumatic; Closed fracture; Ankle; Right; Mall eolus, lateral; Additional info: Fall, S/P knee replacement [...] Lozano M.D. CC: Edith Dalal MD; Wendie Weber Technologist: RT Freddy(R)(CT) Trnscrd Date/Time/By: 11/13/2021 (0859) : By: [email or web address] Print D/T: S: 11/13/2021 (03) PAGE 1 Signed Report- XR KNEE 1 OR 2 V [id number] 00:00:00 [facility] : 1960 Sex: F FAX: Edith Akhtar MD [phone] [place]: [place] St: REG FAX: Bereket Pratt Name: LORRIE GARAYSHERIF Sosa FSED : 1960 Age/S: 61/F [address] [facility]. Unit #: [id number] Loc: [place] [address] Phys: Wendie Pratt MD Acct: [id number] Dis Date: Status: REG ER PHONE #: Exam Date: 11/13/2021 0900 FAX #: Reason: fall, s/p knee replacement EXAMS: CPT CODE: [id number] XR KNEE 1 OR 2 V RT [id number] PROCEDURE INFORMATION: Exam: XR Right Knee Exam [...] signed by: Margret Avila M.D. CC: Edith Tiwari; Wendie Pratt MD Technologist: Miguel Angel Bullock, RT(R)(CT) Trnscrd Date/Time/By: 11/13/2021 (899) : By: [email or web address] Orig Print D/T: S: 11/13/2021 (902) PAGE 1 Signed Report- XR ANKLE 2 VIEWS [id number] 00:00:00 [facility] : 1960 Sex: F FAX: Edith Akhtar MD [phone] [place]: [place] St: [facility] FAX: Bereket Pratt Name: LORRIE GARAYSHERIF Sosa FSED : 1960 Age/S: 61/F [address] [facility] Unit #: [id number] Loc: [place] [address] Phys: OyeWendie hernandez MD Acct: [id number] Dis Date: Status: REG ER PHONE #: Exam Date: 11/13/2021 0900 FAX #:Reason: fall, ankle swelling and tenderness medially EXAMS: CPT CODE: [id number] XR ANKLE [address] [place] [id number] PROCEDURE INFORMATION: Exam: XR Right Ankle Exam date and time: 11/13/2021 8:16 AM Age: 61 years old Clinical indication: Trauma, injury to the right ankle, status post fall. TECHNIQUE: Imaging pro tocol: Radiologic exam of the Right ankle. Views: [...] spur. at 0906 Reported and signed by: aDvid Carmen M.D. CC: Edith Dalal MD; Wendie Pratt MD Technologist: Miguel Angel Bullock, RT(R)(CT) Trnscrd Date/Time/By: 11/13/2021 (905) : By: [email or web address] Orig Print D/T: S: 11/13/2021 (905) PAGE 1 Signed ReportSCR MAMM BILATERAL ELENA CAD [id number] 07:52:28 - SCR MAMM BILATERAL ELENA CAD DIGITALBILATERAL DIGITAL SCREENING MAMMOGRAM 3D/2D WITH CAD: 04/25/2019CLINICAL: Asymptomatic. Digital breast tomosynthesis was performed in addition to routine CC and MLO views. Current mammographic images were evaluated by either a [employer] M-Vu or a [employer] ImageCheckerCAD (computer aided detection system). Comparison is made to exams dated 06/17/2016 mammogram, 05/28/2014 mammogram, and 08/07/2008 mammogram - [facility]. The tissue of both breasts [...] one year. Arnold Doyle M.D. et/penrad:04/27/2019 07:52:28 Regional Account Executive: Asia Lange FW RT(M), [facility]: BIRADS 1-2 Normal Mammogram BI-RADS: 2 Benign
[2022-04-19] MEDS ORDERED: NA CHLORIDE 0.9% 1,000 ML ONE (17:23)
[2022-04-19 17:47] LABS: Absolute Lymphocytes (CBC) 3.7 K/uL (0.7-4.9); Hematocrit 34.3 % (36.0-45.0); Lymphocytes % 38.4 % (15.3-44.8); MCV 94.2 fL (80-100); MPV 7.3 fL (7.6-11.3); RBC Red Blood Cell Count 3.64 M/uL (3.86-4.86)
[2022-04-19 18:00] LABS: Protime INR 0.95
--- NOTE | 2022-04-19 18:01 | RAD REPORT ---
EXAM DESCRIPTION: RAD - Chest Single View - 04/19/2022 5:43 pm CLINICAL HISTORY: COUGH COMPARISON: Portable 03/10/2021 TECHNIQUE: AP portable chest image was obtained 04/19/2022 5:43 pm . FINDINGS: No acute lung parenchymal process. Left costophrenic angle blunting matches comparison exa mination. Left subclavian pacemaker remains in place. Heart and vasculature are normal. No measurable pleural e ffusion and no pneumothorax. No acute bony abnormality seen. No acute aortic findings suspected. IMPRESSION: No acute cardiopulmonary process. Left base pleural and parenchymal changes match comparison study.
[2022-04-19 18:20] LABS: ALT/SGPT 31 U/L (12-78); Albumin 3.4 g/dL (3.4-5.0); Alkaline Phosphatase 97 U/L (45-117); BUN Blood Urea Nitrogen 7 mg/dL (7-18); Bicarbonate 32 mmol/L (21-32); Bilirubin Total 0.2 mg/dL (0.2-1.0); Glomerular Filtration Rate 52 ml/min (=/>90); Glucose Level 118 mg/dL (74-106); Lipase 158 U/L (73-393); Magnesium 1.7 mg/dL (1.8-2.4); NT PRO-BNP 1533 pg/mL (<125); Potassium 3.2 mmol/L (3.5-5.1); Protein, Total 7.6 g/dL (6.4-8.2); Sodium Level 138 mmol/L (136-145)
[2022-04-19 18:22] LABS: Bilirubin Direct < 0.1 mg/dL (0-0.2)
[2022-04-19 18:23] LABS: Troponin High Sensitivity 149.3 pg/mL (<58.9)
[2022-04-19 18:33] LABS: AST/SGOT 38 U/L (15-37)
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
[2022-04-19] MEDS ORDERED: ASPIRIN 81 MG CHEWABLE TABLET ONE (19:00)
[2022-04-19] MEDS ORDERED: MORPHINE 2 MG/ML SYR ONE ×2 (19:01→20:46)
[2022-04-19] MEDS ORDERED: POTASSIUM 25 MEQ EFFERV TAB ONE (19:01)
[2022-04-19] MEDS ORDERED: ONDANSETRON 4 MG/2 ML VIAL ONE ×2 (19:01→20:39)
[2022-04-19] MEDS ORDERED: AMLODIPINE 5 MG TAB ONE (19:01)
[2022-04-19] MEDS ORDERED: ENOXAPARIN 80 MG/0.8 ML SQ ONE (19:02)
[2022-04-19] MEDS ORDERED: Magnesium Sulfate 2gm IVPB 2 G/50 ML BAG IV ONE (19:02)
[2022-04-19] MEDS ORDERED: FAMOTIDINE 20 MG/2 ML VIAL IV ONE (19:02)
[2022-04-19 19:14] LABS: CKMB Creatine Kinase MB 1.8 ng/mL (1.0-3.6)
[2022-04-19 19:34] LABS: Urine Blood Trace-intact (Negative); Urine Glucose Negative (Negative); Urine Protein Negative (Negative); Urine pH 6.5 (5.0-7.0)
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
[2022-04-19 20:11] LABS: SARS-CoV-2 Antigen Rapid Res Negative (Negative)
--- NOTE | 2022-04-19 20:25 | RAD REPORT ---
EXAM DESCRIPTION: CT - C Spine Wo Con - 04/19/2022 8:05 pm CLINICAL HISTORY: Cervical radiculopathy, rheumatoid arthritis COMPARISON: CT cervical spine 02/01/2021 TECHNIQUE: Axial 2 mm thick images of the cervical spine were obtained with sagittal and coronal rec onstruction images generated and reviewed. All CT scans are performed using dose optimization technique as appropriate and may include automated exposure control or mA/KV adjustment according to patient size. FINDINGS: Cervical bodies are normal in height. There is straightening of the usual cervical lordosi s. No subluxation abnormalities. V C3-4 through C6-7 disc spaces are narrowed. Endplate spurring is s een posteriorly. Uncovertebral joint hypertrophy changes are present. No fracture or acute bony abnor mality. No abnormal erosive changes at the dens. There degenerative changes at the dens anterior arch C1 leve l. Soft tissues posterior to the dens do not appear abnormally thickened. Central canal detail is inherently limited. No gross evidence for herniation. Central canal detail is inherently limited on CT imaging. Uncovertebral joint hypertrophy and facet degenerative changes cause moderate bilateral foraminal kristal nosis at C3-4. Posterior endplate spurring at C4-5 causes borderline to mild spinal stenosis and prob ably contacts the cord. Mild bilateral foraminal encroachment at C5-6. Central canal is borderline st enotic. IMPRESSION: Prominent cervical spine degenerative changes are present similar to comparison. No acut e or destructive finding. Multilevel foraminal stenosis with areas of mild central spinal stenosis as detailed in the body of t he report. Overall findings are similar to January 2021. No gross evidence for large disc herniation. Central canal detail is inherently limited on CT imaging .
[2022-04-19] MEDS ORDERED: ACETAMINOPHEN 325 MG TABLET PO PRN (20:34)
[2022-04-19] MEDS: ONDANSETRON 4 MG/2 ML VIAL IV PRN (20:54)
[2022-04-19] MEDS: INSULIN -REGULAR HUMAN 50 UNIT/0.5 ML ML SQ SCH (21:00)
[2022-04-19] MEDS ORDERED: ATORVASTATIN 40 MG TAB PO SCH (21:00)
[2022-04-19] MEDS ORDERED: ATORVASTATIN 20 MG TAB ONE (22:22)
[2022-04-19] MEDS ORDERED: ACETAMINOPHEN 325 MG TABLET ONE (23:41)
[2022-04-20] MEDS ORDERED: ONDANSETRON 4 MG/2 ML VIAL ONE ×2 (02:20→07:53)
[2022-04-20] MEDS ORDERED: HYDROCODONE/APAP 7.5/325 MG TAB ONE ×3 (02:20→17:06)
[2022-04-20] MEDS: HYDROCODONE/APAP 7.5/325 MG TAB PO PRN ×3 (02:24→17:05)
[2022-04-20] MEDS: ONDANSETRON 4 MG/2 ML VIAL IV PRN ×2 (02:25→08:18)
[2022-04-20 02:37] LABS: Absolute Lymphocytes (CBC) 3.9 K/uL (0.7-4.9); Hematocrit 31.9 % (36.0-45.0); Lymphocytes % 35.2 % (15.3-44.8); MCV 94.2 fL (80-100); MPV 8.2 fL (7.6-11.3); RBC Red Blood Cell Count 3.39 M/uL (3.86-4.86)
[2022-04-20 02:56] LABS: Magnesium 1.8 mg/dL (1.8-2.4); Phosphorus 3.2 mg/dL (2.5-4.9); Potassium 3.8 mmol/L (3.5-5.1); Thyroid Stimulating Hormone 2.48 uIU/mL (0.360-3.740)
[2022-04-20 03:05] LABS: Troponin High Sensitivity 159.5 pg/mL (<58.9)
[2022-04-20] MEDS: INSULIN -REGULAR HUMAN 50 UNIT/0.5 ML ML SQ SCH ×3 (07:30→16:30)
[2022-04-20 07:42] VITALS: BMI 29.2
[2022-04-20] MEDS ORDERED: ENOXAPARIN 40 MG/0.4 ML SQ SCH (09:00)
[2022-04-20] MEDS ORDERED: ASPIRIN EC 81 MG TAB PO SCH (09:00)
[2022-04-20] MEDS ORDERED: ASPIRIN EC 81 MG TAB PO ONE (10:08)
[2022-04-20] MEDS ORDERED: ENOXAPARIN 40 MG/0.4 ML SQ ONE (10:08)
[2022-04-20] MEDS ORDERED: INSULIN -REGULAR HUMAN 50 UNIT/0.5 ML ML ONE (12:39)
[2022-04-20 12:59] VITALS: TEMP 98.4
[2022-04-20] MEDS ORDERED: NA CHLORIDE 0.9% 500 ML ONE (13:41)
--- NOTE | 2022-04-20 13:45 | EKG ---
Test Date: 2022-04-19 Test Time: 17:53:35 Typist: REJI MEASUREMENT RESULTS: Intervals: Rate: 71 [place]: 188 QRSD: 168 QT: 464 QTc: 504 [place]: P: [place]: 188 QRS: -73 T: 60 INTERPRETIVE STATEMENTS: AV dual-paced rhythm Abnormal ECG Compared to ECG 03/01/2021 17:57:04 Sinus rhythm no longer present Sinus arrhythmia no longer present Left-axis deviation no longer present Left bundle-branch block no longer present Electronically Signed On 04-20-22 13:44:10 PALAEONTOLOGIST by Ej Abebe
--- NOTE | 2022-04-20 13:45 | EKG ---
Test Date: 2022-04-19 Test Time: 17:54:57 Infection Control Coordinator: REJI MEASUREMENT RESULTS: Intervals: Rate: 66 VT: 186 QRSD: 170 QT: 466 QTc: 488 [place]: P: 29 VT: 186 QRS: -71 T: 69 INTERPRETIVE STATEMENTS: AV dual-paced rhythm Abnormal ECG Compared to ECG 04/19/2022 17:53:35 No significant changes Electronically Signed On 04-20-22 13:44:08 COMMISSIONING EDITOR by Ej Abebe
--- NOTE | 2022-04-20 14:02 | ECHO ---
HEIGHT: 5 ft 8 in WEIGHT: 192 lb 0 oz DATE OF STUDY: 04/20/[address]: Vannesa Henry 2-DIMENSIONAL: YES M.MODE: YES DOPPLER: YES COLOR FLOW: YES TDS: PORTABLE: YES DEFINITY: BUBBLE STUDY: DIAGNOSIS: CHEST PAIN CARDIAC HISTORY: CATHERIZATION: SURGERY: PROSTHETIC VALVE: PACEMAKER: YES MEASUREMENTS (cm) DIASTOLIC (NORMALS) SYSTOLIC (NORMALS) IVSd 1.0 (0.6-1.2) LA Diam 3.8 (1.9-4.0) LVEF 52% LVIDd 4.2 (3.5-5.7) LVIDs 3.1 (2.0-3.5) %FS 26% LVPWd 1.2 (0.6-1.2) Ao Diam 2.9 (2.0-3.7) 2 DIMENSIONAL ASSESSMENT: RIGHT ATRIUM: NORMAL LEFT ATRIUM: NORMAL RIGHT VENTRICLE: PACEMAKER LEAD LEFT VENTRICLE: NORMAL TRICUSPID VALVE: MILD TRICUSPID REGURGITATION MITRAL VALVE: SEVERE MITRAL ANNULAR CALCIFICATION, MILD MITRAL REGURGITATION PULMONIC VALVE: NORMAL AORTIC VALVE: CALCIFIED AORTIC VALVE PERICARDIAL EFFUSION: NONE AORTIC ROOT: NORMAL LEFT VENTRICULAR WALL MOTION: MILD GLOBAL HYPOKINESIS DOPPLER/COLOR FLOW: SEE BELOW COMMENTS: 1. LOW NORMAL LEFT VENTRICULAR EJECTION FRACTION 50-55% 2. SEVERE MITRAL ANNULAR CALCIFICATION WITH MILD MITRAL REGURGITATION 3. CALCIFIED AORTIC VALVE WITH MILD AORTIC STENOSIS 4. MILD TRICUSPID REGURGITATION 5. MODERATE DIASTOLIC DYSFUNCTION 6. PULMONARY HYPERTENSION WITH RIGHT VENTRICULAR SYSTOLIC PRESSURE 48 mmHg PLUS RIGHT ATRIAL PRESSURE TECHNOLOGIST: AXEL MATTHEWS
[2022-04-20] MEDS ORDERED: HEPA 1000U/500MLS 2,000 UNIT/1,000 ML BAG IV ONE (14:30)
[2022-04-20] MEDS ORDERED: FENTANYL CITR 100 MCG/2 ML ONE (14:57)
[2022-04-20] MEDS ORDERED: VERAPAMIL HCL 10 MG/4 ML VIAL IV ONE (14:57)
[2022-04-20] MEDS ORDERED: HEPARIN 5000 UNIT/ML 1 ML VIAL ONE (14:57)
[2022-04-20] MEDS ORDERED: MIDAZOLAM HCL 2 MG/2 ML INJ ONE (14:57)
[2022-04-20] MEDS ORDERED: HEPARIN 10,000 UNIT/10 ML VIAL IV ONE (14:58)
[2022-04-20] MEDS ORDERED: ATROPINE SULF 1 MG/10 ML SYR IV ONE (14:58)
[2022-04-20 16:08] VITALS: O2SAT 100
[2022-04-20 17:31] VITALS: BP 148/70
--- NOTE | 2022-04-20 18:30 | P.DS ---
Admission Date: 04/19/22 Discharge Date: 04/20/22 Disposition: ROUTINE DISCHARGE Discharge Condition: FAIR Reason for Admission: Chest Pain - Problems (1) Chest pain Current Visit: Yes Status: Acute Qualifiers: Chest pain type: unspecified Qualified Code(s): R07.9 - Chest pain, unspecified (2) Diabetes mellitus Current Visit: Yes Status: Chronic Qualifiers: Diabetes mellitus type: type 2 Diabetes mellitus intermediate insulin use: without manager long term care use Diabetes mellitus complication status: with hyperglycemia Qualified Code(s): E11.65 - Type 2 diabetes mellitus with hyperglycemia (3) Hypertension Current Visit: Yes Status: Chronic Qualifiers: Hypertension type: primary hypertension Qualified Code(s): I10 - Essential (primary) hypertension (4) Elevated troponin Current Visit: No Status: Acute Brief History of Present Illness: Patient is a 62-year-old female with history of chronic diastolic congestive heart failure, CKD3, insulin-dependent diabetes, hypertension, and hyperlipidemia who presented to the emergency department with complaints of elevated blood pressure. Initial BP 178/95. Patient was just discharged from this facility 2 days ago after treatment of elevated BP/elevated troponin. The elevated troponin was deemed secondary to demand ischemia and she discharged with an increase in her lisinopril dosage. She returns today complaining of persistent high blood pressure and associated chest pain. No ST changes on EKG. Her labs are significant for hgb 11.6, hct 34.3, potassium 3.2, magnesium 1.7, AST 38, CK 200, trop HS 149, BNP 1533. She was given therapeutic lovenox, aspirin, morphine, 2 grams mag. Patient hospitalized for further management. Hospital Course: Patient placed on observation on the medical floor. Her troponin was mildly elevated but trended flat. Patient seen in consultation by cardiology Dr. Coleman who performed cardiac catheterization. Patient noted to have mild coronary artery disease, no PCI done. Patient deemed stable for discharge per cardiology. Amlodipine 5 mg at bedtime added to his home med antihypertensives for blood pre ssure control. Vital Signs/Physical Exam: Temp Pulse Resp BP Pulse Ox 98.4 F 62 15 148/70 H 99 04/20/22 12:00 04/20/22 17:30 04/20/22 17:30 04/20/22 17:30 04/20/22 17:05 General: Alert, In no apparent distress, Oriented x3 HEENT: Mucous membr. moist/pink Neck: Supple, JVD not distended Respiratory: Clear to auscultation bilaterally, Normal air movement Cardiovascular: No edema, Regular rate/rhythm, Normal S1 S2 Gastrointestinal: Normal bowel sounds, Soft and benign, Non-distended, No tenderness Musculoskeletal: No swelling, No tenderness Integumentary: No rashes Neurological: Normal strength at 5/5 x4 extr Laboratory Data at Discharge: WBC 11.10 K/uL (4.3-10.9) H 04/20/22 02:00 Hgb 10.8 g/dL (12.0-15.0) L 04/20/22 02:00 Hct 31.9 % (36.0-45.0) L 04/20/22 02:00 Plt Count 464 K/uL (152-406) H 04/20/22 02:00 PT 10.4 SECONDS (9.5-12.5) 04/19/22 17:30 INR 0.95 04/19/22 17:30 Sodium 139 mmol/L (136-145) 04/20/22 02:00 Potassium 3.8 mmol/L (3.5-5.1) D 04/20/22 02:00 BUN 8 mg/dL (7-18) 04/20/22 02:00 Creatinine 1.01 mg/dL (0.55-1.3) 04/20/22 02:00 Glucose 135 mg/dL (74-106) H 04/20/22 02:00 Phosphorus 3.2 mg/dL (2.5-4.9) 04/20/22 02:00 Magnesium 1.8 mg/dL (1.8-2.4) 04/20/22 02:00 Total Bilirubin 0.2 mg/dL (0.2-1.0) 04/19/22 17:30 AST 38 U/L (15-37) H 04/19/22 17:30 ALT 31 U/L (12-78) 04/19/22 17:30 Alkaline Phosphatase 97 U/L (45-117) 04/19/22 17:30 Triglycerides 157 mg/dL (<150) H 04/20/22 02:00 Cholesterol 133 mg/dL (<200) 04/20/22 02:00 HDL Cholesterol 54 mg/dL (40-60) 04/20/22 02:00 Cholesterol/HDL Ratio 2.46 04/20/22 02:00 Lipase 158 U/L (73-393) 04/19/22 17:30 Home Medications: Aspirin 81 mg PO DAILY 03/27/20 Bumetanide 1 mg PO DAILY 03/27/20 Amitriptyline [Elavil*] 50 mg PO BEDTIME 09/07/20 Atorvastatin Calcium 40 mg PO BEDTIME 09/07/20 Duloxetine HCl 60 mg PO DAILY 09/07/20 Folic Acid 1 mg PO DAILY 09/07/20 ARIPiprazole [Aripiprazole] 2 mg PO DAILY 03/02/21 Allopurinol 100 mg PO DAILY 03/02/21 Cholecalciferol (Vitamin D3) [Vitamin D3] 1,000 unit PO DAILY 03/09/21 Mecobalamin [B12 Active] 1,000 mcg PO DAILY 03/09/21 Carvedilol [Coreg] 3.125 mg PO BID 04/16/22 Duloxetine HCl 30 mg PO DAILY 04/16/22 Omeprazole [Prilosec] 40 mg PO DAILY 04/16/22 Lisinopril [Zestril] 10 mg PO DAILY #30 tab 04/17/22 Amlodipine [Norvasc*] 5 mg PO BEDTIME #30 tab 04/20/22 New Medications: Amlodipine [Norvasc*] 5 mg PO BEDTIME #30 tab Diet: AHA Activity: Ad ino Followup: Dung Coleman MD [ACTIVE - CAN ADMIT] - Khalida Parks MD [Primary Care Provider] - 1-2 Weeks
--- NOTE | 2022-04-20 22:03 | CON ---
Date of Consultation: 04/19/2022 Reason For Consultation: Unstable angina. History Of Present Illness: Ms. Salguero is 62 and has a history of diabetes, hypertension, dyslipidemi a, and mild coronary artery disease 7 years ago. This is her 3rd or 4th admission with chest pain. She always ruled out for an KS. She does not have any nausea, vomiting, diaphoresis, PND, orthopnea, pedal edema, palpitations, or syncope. Her chest pain is midsternal, radiates to the back and radia rohith to the left shoulder with some diaphoresis. KS has been ruled out. EKG is nonspecific. Past Medical History: As stated above. Allergies: NONE. Review of Systems: Negative. Social History: Negative. Family History: Negative. Medications: Listed by Dr. Najera. Physical Examination: Vital Signs: Stable, afebrile. HEENT: Negative. Neck: Supple with no bruit. Chest: Clear to auscultation and percussion. Cardiac: Regular rhythm and rate. Positive S4 gallops. No murmurs or rubs. Abdomen: Benign. Extremities: No clubbing, cyanosis, or edema. Diagnostic Data: All within normal limits. Impression And Plan: Patient with diabetes, hypertension, dyslipidemia, obesity, and minimal coronar y artery disease 7 years ago who had recurrent visits to the hospital with chest pain. We will recom mend a left heart catheterization today to define her coronary anatomy. The case was discussed with Dr. Najera and Dr. Abebe who will do the case. We will see what her catheterization shows before lauren jocelynn further decisions. LETHA/MICAELA Voice ID: [id number] Report ID: [id number]
--- NOTE | 2022-04-21 00:33 | OP ---
Date of Procedure: 04/20/2022 Surgeon: MCKENZIE CISNEROS Procedures Performed: 1.Selective coronary angiogram. 2.Left heart catheterization. Indication: Non-ST elevation myocardial infarction. Access: 1.Right radial artery 6-Senegalese closed with TR band, however, failed. 2.Right common femoral artery 6-Senegalese closed with 6-[place]alese Angio-Seal. Complications: None. Estimated Blood Loss: Bleeding less than 10 mL. Anesthesia: Total sedation time was 35 minutes and used fentanyl and Versed. Description Of Procedure: After risks, benefits, and alternatives were explained, the patient agreed to procedure and signed informed consent. Patient was brought into the cardiac catheterization [facility] and prepped and draped in sterile fashion. Then I accessed right radial artery using a pediat cat micropuncture kit and placed a 6-Senegalese Slender sheath and took a 5-Senegalese [place] 4 catheter into the aortic root; however, there was significant tortuosity of the brachiocephalic artery and could no t perform the angiogram so I aborted the radial access and then using ultrasound guidance, fluoroscop y, and micropuncture kit, I accessed the right femoral artery, placed 6-Senegalese [place] sheath and to ok 6-[place]eg[place]e JR4 catheter into the aortic root, engaged the left main, took standard views and exchang ed for a 6-[place]eg[place]e JR4 catheter and engaged the RCA and took standard views and then the same catheter was pushed over the wire into the LV, measured LVEDP and pullback did not record any gradient. I th en removed the catheter and the sheath from the groin was removed and placed a 6-[place]egalese Angio-Seal fo r closure with good hemostasis. After the radial sheath was removed, TR band was placed with good he mostasis. Findings: 1.Left main: Very large and normal. 2.LAD is a very large vessel, normal with luminal irregularities in the mid to distal portion. Norm al diagonal branches. 3.Left circumflex has codominant circulation, large in size. The OM bifurcates and tapers smaller. There might be 30% to 40% stenosis in the mid left circumflex and the proximal OM, stenosis about 40 %. 4.RCA: It has codominant circulation with mid diffuse 40% to 50% stenosis. 5.Elevated LVEDP at 19 mmHg. Conclusion: 1.Moderate nonobstructive coronary artery disease. 2.Mildly elevated LVEDP. Recommendations: 1.Cardiac risk factor modification and medical management of coronary artery disease. 2.Diuretics. SR/MODL Voice ID: [id number] Report ID: [id number]
== END 2022-04-20 20:05 | disposition home or self-care (01) ==
LOC: ER 16:46 → ERHOLD 19:44 → 4TH 04-20 13:54
PROVIDERS: ADMIT Internal Medicine; ATTEND Internal Medicine
DX: I25.10 Atherosclerotic heart disease of native coronary artery without angina pectoris (principal); I13.0 Hypertensive heart and chronic kidney disease with heart failure and stage 1 through stage 4 chronic kidney disease, or unspecified chronic kidney disease; I50.32 Chronic diastolic (congestive) heart failure; N18.31 Chronic kidney disease, stage 3a; D63.8 Anemia in other chronic diseases classified elsewhere; E11.22 Type 2 diabetes mellitus with diabetic chronic kidney disease; E11.65 Type 2 diabetes mellitus with hyperglycemia; E87.6 Hypokalemia; E83.42 Hypomagnesemia; E78.5 Hyperlipidemia, unspecified; R77.8 Other specified abnormalities of plasma proteins; E11.40 Type 2 diabetes mellitus with diabetic neuropathy, unspecified; G89.29 Other chronic pain; M06.9 Rheumatoid arthritis, unspecified; K58.1 Irritable bowel syndrome with constipation; E66.9 Obesity, unspecified; Z68.29 Body mass index [BMI] 29.0-29.9, adult; Z95.0 Presence of cardiac pacemaker; Z20.822 Contact with and (suspected) exposure to COVID-19; Z79.82 Long term (current) use of aspirin; Z79.84 Long term (current) use of oral hypoglycemic drugs; Z79.4 Long term (current) use of insulin; Z79.899 Other long term (current) drug therapy; Z91.013 Allergy to seafood; Z88.2 Allergy status to sulfonamides; Z90.81 Acquired absence of spleen; Z82.49 Family history of ischemic heart disease and other diseases of the circulatory system
CPT/HCPCS: 36415; 71045; 72125; 76937; 80048; 80061; 80076; 81003; 82550; 82553; 82947; 83036; 83690; 83735; 83880; 84100; 84443; 84484; 85025; 85610; 87811; 93005; 93306; 93458; 96372; 96374; 96375; 99284; C1760; C1893; G0269; G0378; J0461; J1644; J1650; J1815; J2250; J2270; J2405; J3010; J3475; J7030; J7040; Q9966

== ENCOUNTER 2022-06-22 22:27 | Emergency (ER) | payer OTHER ==
--- OUTSIDE RECORDS SUMMARY | 2022-06-22 22:42 | XMS REPORT | Continuity of Care Document ---
:1960 Author Organization [facility] t Address [address] [place] [address] Care Team Providers Name Role Phone Laurel Burris MD Primary Care Physician [phone] MAT HINTON Attending Clinician Unavailable [id number] Attending Clinician Unavailable АЛЕКСАНДР HOWELL Attending Clinician Unavailable VINCENT RADER Attending Clinician Unavailable Vincent Rader MD Attending Clinician [phone] Doctor Unassigned, Mark Attending Clinician Unavailable Benitez Berger MD Attending [...] Clinician Unavailable MAT HINTON Admitting Clinician Unavailable [id number] Admitting Clinician Unavailable VINCENT RADER Admitting Clinician [...] Number Effective Date Expiration Date S willie [employer] [id number] 2015 HMO 00:00:00 HLSM HLSM [id number] SELF-PAY CI [id number] [employer] [id number] 2015spring 00:00:00 [employer] [id number] 2019 (MEDICARE 00:00:00 REPLACEMENT/ADVANT AGE - HMO) [employer] [id number] Common Medicare Replace [facility] [id number] Common Medicare Replace [facility] C1 [id number] Common Medicare Replace [facility] C1 [id number] Common Medicare Replace [facility] C1 [id number] Common Medicare Replace [facility] C1 [id number] Common Medicare Replace [facility] C1 [id number] Common Medicare Replace [facility] Problems Condition Condition Condition Status Onset Resolution Last Treating Co mments Source Name Details Category Date Date Treatment Clinician Date Closed Closed Disease Active Univers right right 7-19 ity of ankle ankle 00:00: [place] fracture fracture 00 Medica l Branch Sore Sore Disease Active Univers throat throat 6-14 ity of 00:00: [place] [facility] Cough Cough Disease Active Univers 6-13 ity of 00:00: [place] [facility] Branch Chronic Chronic Disease Active Univers combined combined 6-13 ity of systolic systolic 00:00: [place] and and Medical diastolic 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 failure failure Pacemaker Pacemaker Disease Active Uni vers 6-13 ity of 00:00: 00 [facility] Type 2 Type 2 Disease Active Univers diabetes diabetes 6-13 ity of mellitus mellitus 00:00: [place] without without 00 Medical complicati complicati Br anch on, on, without without long-term long-term current current use of use of insulin insulin Hypokalemi Hypokalemi Disease Active U nivers a a 6-13 ity of 00:00: [place] [facility] Hyponatrem Hyponatrem Disease Active U nivers ia ia 6-13 ity of 00:00: Medical Branch Elevated Elevated Disease Active Unive rs troponin troponin 6-12 ity of 00:00: [place] 00 Medical Branch Elevated Elevated Disease Active Unive rs troponin troponin 6-12 ity of 00:00: [place] [facility] Obesity Obesity Disease Active 2020-05 Univers (BMI (BMI 2-22 ity of 30-39.9) 30-39.9) 00:00: [place] 00 Medical Branch Primary Primary Disease Active 2020-05 Overview: Univ ers osteoarthr osteoarthr 2-16 Formattin ity of itis of itis of 00:00: g of this [place] right knee right knee 00 note Me dical might be Branch different from the original. Added automatic ally from request for surgery [id number] Monitoring Monitoring Problem Active V illage of [...] nivers lisset lisset 3-27 ity of 00:00: [place] [address] Medical Branch [id number] Arthritis Problem Active Co mmon [id number] of knee, Spirit right - [facility] Allergies, Adverse Reactions, Alerts Allergy Allergy Status Severity Reaction(s) Onset Inactive Treating Comm ents Source Name Type Date Date Clinician No Known DA Active U [facility] Allergie 6-30 Clear s 00:00: [place] 00 [facility] Sulfa Drug Active Other - See Unive rs (Sulfona Allergy comments 5-10 ity o f mide 00:00: [place] Antibiot 00 Medical ics) Branch SULFA Drug Active Other-Cmnt Univer s (SULFONA Class 5-10 ity of MIDE 00:00: [place] ANTIBIOT 00 Medical ICS) Branch NO KNOWN Allergy Active [facility] Family History Family Member Diagnosis Comments Start Date Stop Date Source Natural father Hypertension [facility] Natural father Alcohol abuse [facility] Natural father Heart disease [facility] Natural mother Early [facility] Natural sister Hypertension [facility] Natural brother Hypertension [facility] Natural brother Stroke [facility] Social History Social Habit Start Date Stop Date Quantity Comments Source History of [facility] - Tobacco Use [facility] Exposure to 2022-03-29 2022-04-08 Not sure University SARS-CoV-2 00:00:00 20:45:00 [facility] (event) Branch Alcohol intake 2015-08-13 2015-08-13 Current [facility] es 00:00:00 00:00:00 non-drinker of Medical Ce nter alcohol (finding) Tobacco use and 2015-08-03 2015-08-03 Never used [facility] exposure 00:00:00 00:00:00 [facility] Center Sex [birth year] [facility] 00:00:00 00:00:00 [facility] Center Smoking Status Start Date Stop Date Source Never Smoker [facility] - [facility] Medications Ordered Filled Start Stop [...] by mouth ity of tablet 16:03: at [place] 50 bedtime. Medical Branch bumetanide 0 Yes 1mg Take 1 mg Un irma 1 mg tablet 7-25 by mouth ity of 16:03: in the [place] [address] morning. Medical Branch ARIPiprazol 0 Yes 2mg Take 2 mg U nivers e 2 mg 7-25 by mouth ity of tablet 16:03: daily. [place] [address] Medical Branch insulin NPH Yes 2U inject [...] mouth ity of delayed-rel 16:03: in the [facility] s ease 50 morning. Medical suspension Branch carvediloL Yes 3.125mg Take 3.125 Univers 3.125 mg 7-25 mg by ity of tablet 16:03: mouth in [place] [address] the Medical morning Branch and 3.125 mg in the evening. Take with meals. docusate Yes 100mg Take 100 Univ ers (COLACE) 7-25 mg by ity of 100 mg 16:03: mouth in [place] capsule 50 the Medical morning. Branch allopurinoL [...] mouth ity of 3350 16:03: in the [place] (MIRALAX) 50 morning. Medica l 17 Branch [...] by mouth ity of tablet 16:03: at [place] [address] bedtime. Medical Branch bumetanide Yes 1mg Take 1 mg Un irma 1 mg tablet 7-25 by mouth ity of 16:03: in the [place] [address] morning. Medical Branch ARIPiprazol Yes 2mg Take 2 mg U nivers e 2 mg 7-25 by mouth ity of tablet 16:03: daily. [place] [address] Medical Branch insulin NPH Yes 2U inject [...] mouth ity of delayed-rel 16:03: in the [facility] s ease 50 morning. Medical suspension Branch carvediloL Yes 3.125mg Take 3.125 Univers 3.125 mg 7-25 mg by ity of tablet 16:03: mouth in [place] 50 the Medical morning Branch and 3.125 mg in the evening. Take with meals. docusate Yes 100mg Take 100 Univ ers (COLACE) 7-25 mg by ity of 100 mg 16:03: mouth in [place] capsule 50 the Medical morning. Branch allopurinoL [...] mouth ity of 3350 16:03: in the [place] (MIRALAX) 50 morning. Medica l 17 Branch [...] by mouth ity of tablet 16:03: at [place] [address] bedtime. Medical Branch bumetanide Yes 1mg Take 1 mg Un irma 1 mg tablet 7-25 by mouth ity of 16:03: in the [place] 50 morning. Medical Branch ARIPiprazol Yes 2mg Take 2 mg U nivers e 2 mg 7-25 by mouth ity of tablet 16:03: daily. [place] [address] Medical Branch insulin NPH Yes 2U inject [...] mouth ity of delayed-rel 16:03: in the [facility] s ease 50 morning. Medical suspension Branch carvediloL Yes 3.125mg Take 3.125 Univers 3.125 mg 7-25 mg by ity of tablet 16:03: mouth in [place] 50 the Medical morning Branch and 3.125 mg in the evening. Take with meals. docusate Yes 100mg Take 100 Univ ers (COLACE) 7-25 mg by ity of 100 mg 16:03: mouth in [facility] 50 the Medical morning. Branch allopurinoL [...] mouth ity of 3350 16:03: in the [place] (MIRALAX) 50 morning. Medica l 17 Branch [...] by mouth ity of tablet 16:03: daily. [place] [address] Medical Branch insulin NPH Yes 2U inject [...] mouth ity of delayed-rel 16:03: in the [facility] s ease 50 morning. Medical suspension Branch carvediloL Yes 3.125mg Take 3.125 Univers 3.125 mg 7-25 mg by ity of tablet 16:03: mouth in [place] [address] the Medical morning Branch and 3.125 mg in the evening. Take with meals. docusate Yes 100mg Take 100 Univ ers (COLACE) 7-25 mg by ity of 100 mg 16:03: mouth in [place] capsule 50 the Medical morning. Branch allopurinoL Yes 100mg Take 100 U nivers 100 mg 7-25 mg by ity of tablet 16:03: mouth in [place] 50 the Medical morning. Branch cholecalcif Yes [...] mouth ity of 3350 16:03: in the [place] (MIRALAX) 50 morning. Medica l 17 Branch [...] by mouth ity of tablet 16:03: at [place] [address] bedtime. Medical Branch bumetanide Yes 1mg Take 1 mg Un irma 1 mg tablet 7-25 by mouth ity of 16:03: in the [place] [address] morning. Medical Branch ARIPiprazol Yes 2mg Take 2 mg U nivers e 2 mg 7-25 by mouth ity of tablet 16:03: daily. [place] [address] Medical Branch insulin NPH Yes 2U inject [...] mouth ity of delayed-rel 16:03: in the [facility] s ease 50 morning. Medical suspension Branch carvediloL Yes 3.125mg Take 3.125 Univers 3.125 mg 7-25 mg by ity of tablet 16:03: mouth in [place] 50 the Medical morning Branch and 3.125 mg in the evening. Take with meals. docusate Yes 100mg Take 100 Univ ers (COLACE) 7-25 mg by ity of 100 mg 16:03: mouth in [place] capsule 50 the Medical morning. Branch allopurinoL [...] by mouth ity of tablet 16:03: at [place] [address] bedtime. Medical Branch bumetanide Yes 1mg Take 1 mg Un irma 1 mg tablet 7-25 by mouth ity of 16:03: in the [place] [address] morning. Medical Branch ARIPiprazol Yes 2mg Take 2 mg U nivers e 2 mg 7-25 by mouth ity of tablet 16:03: daily. [place] [address] Medical Branch insulin NPH Yes 2U inject [...] mouth ity of delayed-rel 16:03: in the [facility] s ease 50 morning. Medical suspension Branch carvediloL Yes 3.125mg Take 3.125 Univers 3.125 mg 7-25 mg by ity of tablet 16:03: mouth in [place] [address] the Medical morning Branch and 3.125 mg in the evening. Take with meals. docusate Yes 100mg Take 100 Univ ers (COLACE) 7-25 mg by ity of 100 mg 16:03: mouth in [facility] 50 the Medical morning. Branch allopurinoL [...] mouth ity of 3350 16:03: in the [place] (MIRALAX) 50 morning. Medica l 17 Branch [...] by mouth ity of tablet 16:03: at [place] [address] bedtime. Medical Branch bumetanide Yes 1mg Take 1 mg Un irma 1 mg tablet 7-25 by mouth ity of 16:03: in the [place] 50 morning. Medical Branch ARIPiprazol Yes 2mg Take 2 mg U nivers e 2 mg 7-25 by mouth ity of tablet 16:03: daily. [place] [address] Medical Branch insulin NPH 2022-0 Yes 2U [...] mouth ity of delayed-rel 16:03: in the [facility] s ease 50 morning. Medical suspension Branch [...] mouth ity of 3350 16:03: in the [place] (MIRALAX) 50 morning. Medica l 17 Branch [...] by mouth ity of tablet 16:03: at [place] [address] bedtime. Medical Branch bumetanide Yes 1mg Take 1 mg Un irma 1 mg tablet 7-25 by mouth ity of 16:03: in the [place] [address] morning. Medical Branch ARIPiprazol Yes 2mg Take 2 mg U nivers e 2 mg 7-25 by mouth ity of tablet 16:03: daily. [place] [address] Medical Branch insulin NPH Yes 2U inject [...] mouth ity of delayed-rel 16:03: [facility] morning. Medical suspension Branch [...] by mouth ity of tablet 16:03: at [place] [address] bedtime. Medical Branch bumetanide Yes 1mg Take 1 mg Un irma 1 mg tablet 7-25 by mouth ity of 16:03: in the [place] [address] morning. Medical Branch ARIPiprazol Yes 2mg Take 2 mg U nivers e 2 mg 7-25 by mouth ity of tablet 16:03: daily. [place] [address] Medical Branch insulin NPH Yes 2U inject [...] mouth ity of delayed-rel 16:03: in the [facility] s ease 50 morning. Medical suspension Branch carvediloL Yes 3.125mg Take 3.125 Univers 3.125 mg 7-25 mg by ity of tablet 16:03: mouth in [place] [address] the Medical morning Branch and 3.125 mg in the evening. Take with meals. docusate Yes 100mg Take 100 Univ ers (COLACE) 7-25 mg by ity of 100 mg 16:03: mouth in [place] capsule 50 the Medical morning. Branch allopurinoL [...] mouth ity of 3350 16:03: in the [place] (MIRALAX) 50 morning. Medica l 17 Branch gram/dose powder benzocaine- Yes [id number] 1{lozen Take 1 Univers menthoL 6-15 ge} Lozenge by ity of lozenge 00:00: mouth [place] 00 every 4 Medical (four) Branch hours as needed for Sore throat. magnesium Yes [id number] 400mg Take 1 U nivers oxide 400 6-15 capsule by ity of mg 00:00: mouth [place] magnesium 00 daily. Medical capsule Branch benzocaine- Yes [id number] 1{lozen Take 1 Univers menthoL 6-15 ge} Lozenge by ity of lozenge 00:00: mouth [place] 00 every 4 Medical (four) Branch hours as needed for Sore throat. magnesium Yes [id number] 400mg Take 1 U nivers oxide 400 6-15 capsule by ity of mg 00:00: mouth [place] magnesium 00 daily. Medical capsule Branch benzocaine- Yes [id number] 1{lozen Take 1 Univers menthoL 6-15 ge} Lozenge by ity of lozenge 00:00: mouth [place] 00 every 4 Medical (four) Branch hours as needed for Sore throat. magnesium 2022-0 Yes [id number] 400mg Take 1 U nivers oxide 400 6-15 capsule by ity of mg 00:00: mouth [place] magnesium 00 daily. Medical capsule Branch benzocaine- Yes [id number] 1{lozen Take 1 Univers menthoL 6-15 ge} Lozenge by ity of lozenge 00:00: mouth [place] 00 every 4 Medical (four) Branch hours as needed for Sore throat. magnesium 2021-0 Yes [id number] 400mg Take 1 U nivers oxide 400 6-15 capsule by ity of mg 00:00: mouth [place] magnesium 00 daily. Medical capsule Branch benzocaine- Yes [id number] 1{lozen Take 1 Univers menthoL 6-15 ge} Lozenge by ity of lozenge 00:00: mouth [place] 00 every 4 Medical (four) Branch hours as needed for Sore throat. magnesium 0 Yes [id number] 400mg Take 1 U nivers oxide 400 6-15 capsule by ity of mg 00:00: mouth [place] magnesium 00 daily. Medical capsule Branch benzocaine- Yes [id number] 1{lozen Take 1 Univers menthoL 6-15 ge} Lozenge by ity of lozenge 00:00: mouth [place] 00 every 4 Medical (four) Branch hours as needed for Sore throat. magnesium 0 Yes [id number] 400mg Take 1 U nivers oxide 400 6-15 capsule by ity of mg 00:00: mouth [place] magnesium 00 daily. Medical capsule Branch benzocaine- Yes [id number] 1{lozen Take 1 Univers menthoL 6-15 ge} Lozenge by ity of lozenge 00:00: mouth [place] 00 every 4 Medical (four) Branch hours as needed for Sore throat. magnesium 0 Yes [id number] 400mg Take 1 U nivers oxide 400 6-15 capsule by ity of mg 00:00: mouth [place] magnesium 00 daily. Medical capsule Branch benzocaine- Yes [id number] 1{lozen Take 1 Univers menthoL 6-15 ge} Lozenge by ity of lozenge 00:00: mouth [place] 00 every 4 Medical (four) Branch hours as needed for Sore throat. magnesium 2021-0 Yes [id number] 400mg Take 1 U nivers oxide 400 6-15 capsule by ity of mg 00:00: mouth [place] magnesium 00 daily. Medical capsule Branch benzocaine- Yes [id number] 1{lozen Take 1 Univers menthoL 6-15 ge} Lozenge by ity of lozenge 00:00: mouth [place] 00 every 4 Medical (four) Branch hours as needed for Sore throat. magnesium Yes [id number] 400mg Take 1 U nivers oxide 400 6-15 capsule by ity of mg 00:00: mouth [place] magnesium 00 daily. Medical capsule Branch simvastatin Yes 20mg QD Take [address] [facility] (ZOCOR) 20 3-29 by mouth [facility] tablet 15:36: nightly. [address] metFORMIN 0 Yes 1000mg Take 1,[address] [facility] (GLUCOPHAGE 3-29 mg by [facility] ) 1000 MG 15:36: mouth 2 Medic al tablet 54 (two) Center times daily with breakfast and dinner. omeprazole Yes 20mg QD Take [address] (PRILOSEC) 3-29 by mouth [facility] 20 MG 15:36: daily. Medical capsule 54 [place] ferrous 0 Yes 325mg Take 325 [facility] sulfate 325 3-29 mg by [facility] (65 FE) MG 15:36: mouth Medica l tablet 54 daily with Center breakfast. cyanocobala 0 Yes 1000ug QD Take 1,[address] [facility] min 1000 3-29 mcg by [facility] MCG tablet 15:36: mouth Medica l 54 daily. [place] aspirin 81 0 Yes 81mg QD Take [address] MG EC 3-29 by mouth [facility] tablet 15:36: daily. [address] cyclobenzap 0 Yes 10mg Take [address] [facility] rine 3-29 by mouth 2 [facility] (FLEXERIL) 15:36: (two) Medica l 10 MG 54 times Center tablet daily as needed for Muscle spasms. simvastatin 2015-0 Yes 20mg QD Take [address] [facility] (ZOCOR) 20 3-29 by mouth [facility] MG tablet 15:36: nightly. [address] metFORMIN 2015-0 Yes 1000mg Take 1,[address] [facility] (GLUCOPHAGE 3-29 mg by [facility] ) 1000 MG 15:36: mouth 2 Medic al tablet 54 (two) Center times daily with breakfast and dinner. omeprazole 2016-0 Yes 20mg QD Take [address] (PRILOSEC) 3-29 by mouth [facility] 20 MG 15:36: daily. Medical capsule 54 [place] ferrous 2016-0 Yes 325mg Take 325 [facility] sulfate 325 3-29 mg by [facility] (65 FE) MG 15:36: mouth Medica l tablet 54 daily with Center breakfast. cyanocobala 2016-0 Yes 1000ug QD Take 1,[address] min 1000 3-29 mcg by [facility] MCG tablet 15:36: mouth Medica l 54 daily. [place] aspirin 81 2016-0 Yes 81mg QD Take [address] MG EC 3-29 by mouth [facility] tablet 15:36: daily. [address] cyclobenzap 2016-0 Yes 10mg Take [address] [facility] [address] rine 3-29 by mouth 2 [facility] (FLEXERIL) 15:36: (two) Medica l 10 MG 54 times Center tablet daily as needed for Muscle spasms. simvastatin 2016-0 Yes 20mg QD Take [address] (ZOCOR) 20 3-29 by mouth [facility] MG tablet 15:36: nightly. [address] metFORMIN 2016-0 Yes 1000mg Take 1,[address] (GLUCOPHAGE 3-29 mg by [facility] ) 1000 MG 15:36: mouth 2 Medic al tablet 54 (two) Center times daily with breakfast and dinner. omeprazole 2016-0 Yes 20mg QD Take [address] (PRILOSEC) 3-29 by mouth [facility] 20 MG 15:36: daily. Medical capsule 54 [place] ferrous 2016-0 Yes 325mg Take 325 [facility] sulfate 325 3-29 mg by [facility] (65 FE) MG 15:36: mouth Medica l tablet 54 daily with Center breakfast. cyanocobala 2016-0 Yes 1000ug QD Take 1,[address] min 1000 3-29 mcg by [facility]ukes MCG tablet 15:36: mouth Medica l 54 daily. [place] aspirin 81 2016-0 Yes 81mg QD Take [address] MG EC 3-29 by mouth [facility] tablet 15:36: daily. [address] cyclobenzap 2016-0 Yes 10mg Take [address] [facility] [address] rine 3-29 by mouth 2 [facility] (FLEXERIL) 15:36: (two) Medica l 10 MG 54 times Center tablet daily as needed for Muscle spasms. simvastatin 2016-0 Yes 20mg QD Take [address] (ZOCOR) 20 3-29 by mouth [facility] MG tablet 15:36: nightly. [facility] 54 Center metFORMIN 2016-0 Yes 1000mg Take 1,[address] (GLUCOPHAGE 3-29 mg by [facility] ) 1000 MG 15:36: mouth 2 Medic al tablet 54 (two) Center times daily with breakfast and dinner. omeprazole 2016-0 Yes 20mg QD Take [address] (PRILOSEC) 3-29 by mouth [facility] 20 MG 15:36: daily. Medical capsule 54 Center ferrous 2016-0 Yes 325mg Take 325 [facility] [...] 3-29 by mouth [facility] tablet 15:36: daily. [place] [address] Center cyclobenzap 2016-0 Yes 10mg Take [address] [facility] [address] rine 3-29 by mouth 2 [facility] (FLEXERIL) 15:36: (two) Medica l 10 MG 54 times Center tablet daily as needed for Muscle spasms. metFORMIN 2016-0 Yes 1000mg Take 1,[address] (GLUCOPHAGE 3-29 mg by [facility] ) 1000 MG 15:36: mouth 2 Medic al tablet 54 (two) Center times daily with breakfast and dinner. omeprazole 2016-0 Yes 20mg QD Take [address] (PRILOSEC) 3-29 by mouth [facility] 20 MG 15:36: daily. Medical capsule 54 Center ferrous 2016-0 Yes 325mg Take 325 [facility] sulfate 325 3-29 mg by [facility] (65 FE) MG 15:36: mouth Medica l tablet 54 daily with Center breakfast. cyanocobala 2016-0 Yes 1000ug QD Take 1,[address] min 1000 3-29 mcg by [facility]ukes MCG tablet 15:36: mouth Medica l 54 daily. Center aspirin 81 2016-0 Yes 81mg QD Take [address] MG EC 3-29 by mouth [facility]ukes tablet 15:36: daily. [place] [address] Center cyclobenzap Yes 10mg Take [address] rine 3-29 by mouth 2 [facility] (FLEXERIL) 15:36: (two) Medica l 10 MG 54 times Center tablet daily as needed for Muscle spasms. simvastatin Yes 20mg QD Take [address] (ZOCOR) 20 3-29 by mouth [facility] MG tablet 15:36: nightly. [place] [address] Center insulin Yes To use 30 [facility] [...] Dispense Medical Insulin Pen 00 as Center Scroggins 4 written, mm x 32 G do [...] Dispense Medical Insulin Pen 00 as Center [place] 4 written, mm x 32 G do [...] Dispense Medical Insulin Pen 00 as Center [place] 4 written, mm x 32 G do [...] Dispense Medical Insulin Pen 00 as Center [place] 4 written, mm x 32 G do [...] Dispense Medical Insulin Pen 00 as Center [place] 4 written, mm x 32 G do [...] 4-6 hours as needed. Insulin 0 Yes [id number] Use as Univ ers [place], 5-11 directed ity of Disposable, 00:00: daily [place] (BD 00 Medical ULTRAFINE Branch III MINI PEN) 31 x 3/16 " Ndle Insulin 0 Yes [id number] Use as Univ ers [place]ro[place], 5-11 directed ity of Disposable, 00:00: daily [place] (BD 00 Medical ULTRAFINE Branch III MINI PEN) 31 x 3/16 " Ndle Insulin 0 Yes [id number] Use as Univ ers [place], 5-11 directed ity of Disposable, 00:00: daily [place] (BD 00 Medical ULTRAFINE Branch III MINI PEN) 31 x 3/16 " Ndle Insulin 0 Yes [id number] Use as Univ ers [place], 5-11 directed ity of Disposable, 00:00: daily [place] (BD 00 Medical ULTRAFINE Branch III MINI PEN) 31 x 3/16 " Ndle Insulin 2014-0 Yes [id number] Use as Univ ers [place], 5-11 directed ity of Disposable, 00:00: daily [place] (BD 00 Medical ULTRAFINE Branch III MINI PEN) 31 x 3/16 " Ndle Insulin 2014-0 Yes [id number] Use as Univ ers [place], 5-11 directed ity of Disposable, 00:00: daily [place] (BD 00 Medical ULTRAFINE Branch III MINI PEN) 31 x 3/16 " Ndle Insulin 2014-0 Yes [id number] Use as Univ ers [place], 5-11 directed ity of Disposable, 00:00: daily [place] (BD 00 Medical ULTRAFINE Branch III MINI PEN) 31 x 3/16 " Ndle Insulin 2014-0 Yes [id number] Use as Univ ers [place], 5-11 directed ity of Disposable, 00:00: daily [place] (BD 00 Medical ULTRAFINE Branch III MINI PEN) 31 x 3/16 " Ndle Insulin 2014-0 Yes [id number] Use as Univ ers [place], 5-11 directed ity of Disposable, 00:00: daily [place] (BD 00 Medical ULTRAFINE Branch III MINI PEN) 31 x 3/16 " Ndle aspirin 81 2014-0 Yes 81mg Take 1 Tab U nivers mg chewable 3-29 by mouth ity of tablet 00:00: daily. [place] Medical Branch vitamin 2015-0 Yes 1000ug Take 1 Tab Un irma B-12 3-29 by mouth ity of (CYANOCOBAL 00:00: [place]. [place] [facility] 1,000 00 Medical mcg tablet Branch aspirin 81 0 Yes 81mg Take 1 Tab U nivers mg chewable 3-29 by mouth ity of tablet 00:00: daily. [place] Medical Branch vitamin 2015-0 Yes 1000ug Take 1 Tab Un irma B-12 3-29 by mouth ity of (CYANOCOBAL 00:00: [place]. [place] [facility] 1,000 00 Medical mcg tablet Branch aspirin 81 0 Yes 81mg Take 1 Tab U nivers mg chewable 3-29 by mouth ity of tablet 00:00: daily. [place] Medical Branch vitamin 2015-0 Yes 1000ug Take 1 Tab Un irma B-12 3-29 by mouth ity of (CYANOCOBAL 00:00: [place]. [place] [facility] 1,000 00 Medical mcg tablet Branch aspirin 81 2014-0 Yes 81mg Take 1 Tab U nivers mg chewable 3-29 by mouth ity of tablet 00:00: daily. [place] Medical Branch vitamin 2015-0 Yes 1000ug Take 1 Tab Un irma B-12 3-29 by mouth ity of (CYANOCOBAL 00:00: [place]. [place] [facility] 1,000 00 Medical mcg tablet Branch aspirin 81 2015-0 Yes 81mg Take 1 Tab U nivers mg chewable 3-29 by mouth ity of tablet 00:00: daily. [place] Medical Branch vitamin Yes 1000ug Take 1 Tab Un irma B-12 3-29 by mouth ity of (CYANOCOBAL 00:00: [place]. [place] [facility] ,000 00 Medical mcg tablet Branch aspirin 81 Yes 81mg Take 1 Tab U nivers mg chewable 3-29 by mouth ity of tablet 00:00: daily. [place] Medical Branch vitamin Yes 1000ug Take 1 Tab Un irma B-12 3-29 by mouth ity of (CYANOCOBAL 00:00: [place]. [place] [facility] 1,000 00 Medical mcg tablet Branch aspirin 81 Yes 81mg Take 1 Tab U nivers mg chewable 3-29 by mouth ity of tablet 00:00: daily. [place] Medical Branch vitamin Yes 1000ug Take 1 Tab Un irma B-12 3-29 by mouth ity of (CYANOCOBAL 00:00: [place]. [place] [facility] 1,000 00 Medical mcg tablet Branch aspirin 81 Yes 81mg Take 1 Tab U nivers mg chewable 3-29 by mouth ity of tablet 00:00: daily. [place] Medical Branch vitamin Yes 1000ug Take 1 Tab Un irma B-12 3-29 by mouth ity of (CYANOCOBAL [place]:00[place] [facility] 1,000 00 Medical mcg tablet Branch aspirin 81 Yes 81mg Take 1 Tab U nivers mg chewable 3-29 by mouth ity of tablet 00:00: daily. [place] [facility] vitamin Yes 1000ug Take 1 [...] for 30 days. amiodarone amiodarone No amiodarone [facility] 200 mg 200 mg 200 mg [...] BD Insulin BD Insulin No BD Insulin [facility] Syringe Syringe Syringe [facility] Ultra-Fine Ultra-Fine Ultra-Fine Practic 0.3 mL 31 0.3 mL 31 0.3 mL 31 e gauge x gauge x gauge x /16" /16" 16" bumetanide bumetanide No .5 Q1D bumetanide [facility] 2 mg tablet 2 mg tablet [...] No Dulcolax Raya nuno (bisacodyl) (bisacodyl) (bisacodyl [facility] 1 cup daily 1 cup daily ) 1 cup Practic daily e folic acid folic acid No 1 Q1D folic acid [facility] 1 mg tablet 1 mg tablet 1 mg F amily Take 1 Take 1 tablet Practic tablet tablet Take 1 e every day every day tablet by oral by oral every day route. route. by oral route. lisinopril lisinopril No 1 Q1D lisinopril [facility] 5 mg tablet 5 mg tablet 5 mg F amily Take 1 Take 1 tablet Practic tablet tablet Take 1 e every day every day tablet by oral by oral every day route for route for by oral 90 days. 90 days. route for 90 days. magnesium magnesium No 1 Q1D magnesium [facility] 400 mg (as 400 mg (as [...] e omeprazole omeprazole No 1capsul Q1D omeprazole [facility] 40 mg 40 mg e(s) 40 [...] days. paroxetine paroxetine No 1 Q1D paroxetine [facility] 20 mg 20 mg 20 mg Family tablet Take tablet Take tablet Practic 1 tablet 1 tablet Take 1 e every day every day tablet by oral by oral every day route for route for by oral 30 days. 30 days. route for 30 days. sertraline sertraline No sertraline [facility] 50 mg 50 mg 50 mg [...] 2021-01-21 Completed [facility] - 08:50:00 [facility] Hyalgan 20 mg Hyalgan 20 mg 2021-01-21 Completed [facility] - 08:50:00 [facility] Hyalgan 20 mg Hyalgan 20 mg 2021-01-21 Completed [facility] - 08:50:00 [facility] Hyalgan 20 mg Hyalgan 20 mg 2021-01-14 Completed [facility] - 09:17:00 [facility] Hyalgan 20 mg Hyalgan 20 mg 2021-01-14 Completed [facility] - 09:17:00 [facility] Hyalgan 20 mg Hyalgan 20 mg 2021-01-14 Completed [facility] - 09:17:00 [facility] Hyalgan 20 mg Hyalgan 20 mg 2021-01-14 Completed [facility] - 09:17:00 [facility] Bupivicaine [place] Bupivicaine [place] 2021-01-07 Completed [facility] - 13:41:00 [facility] Kenalog Kenalog 2021-01-07 Completed [facility] - (Triamcinolone) (Triamcinolone) 13:41:00 [facility] Bupivicaine [place] Bupivicaine [place] 2021-01-07 Completed [facility] - 13:41:00 [facility] Kenalog Kenalog 2021-01-07 Completed [facility] - (Triamcinolone) (Triamcinolone) 13:41:00 [facility] Bupivicaine [place] Bupivicaine [place] 2021-01-07 Completed [facility] - 13:41:00 [facility] Kenalog Kenalog 2021-01-07 Completed [facility] (Triamcinolone) (Triamcinolone) 13:41:00 [facility] Bupivicaine [place] Bupivicaine [place] 2021-01-07 Completed [facility] - 13:41:00 [facility] Kenalog Kenalog 2021-01-07 Completed [facility] - (Triamcinolone) (Triamcinolone) 13:41:00 [facility] Bupivicaine [place] Bupivicaine [place] 2021-01-07 Completed [facility] - 13:41:00 [facility] Kenalog Kenalog 2021-01-07 Completed [facility] (Triamcinolone) (Triamcinolone) 13:41:00 [facility] Hyalgan 20 mg Hyalgan 20 mg 2021-01-07 Completed [facility] - 13:40:00 [facility] Hyalgan 20 mg Hyalgan 20 mg 2021-01-07 Completed [facility] - 13:40:00 [facility] Hyalgan 20 mg Hyalgan 20 mg 2021-01-07 Completed [facility] - 13:40:00 [facility] Hyalgan 20 mg Hyalgan 20 mg 2021-01-07 Completed [facility] - 13:40:00 [facility] Hyalgan 20 mg Hyalgan 20 mg 2021-01-07 Completed [facility] - 13:40:00 [facility] influenza, influenza, 2019-03-09 Completed [facility] unspecified unspecified 00:00:00 Practice formulation formulation Meningococcal 2014-08-24 Completed University of Polysaccharide 00:00:00 [place] [facility] (groups A, C, Y and Branc h W-135) conjugate vaccine (MCV4P) Heamophilus Influenza 2014-08-24 Completed Uni versity of B 00:00:00 [facility] Meningococcal 2014-08-24 Completed University of Polysaccharide 00:00:00 [place] [facility] (groups A, C, Y and Branc h W-135) conjugate vaccine (MCV4P) Heamophilus Influenza 2014-08-24 Completed Uni versity of B 00:00:00 [facility] Meningococcal 2014-08-24 Completed University of Polysaccharide 00:00:00 [place] [facility] (groups A, C, Y and Branc h W-135) conjugate vaccine (MCV4P) Heamophilus Influenza 2014-08-24 Completed Uni versity of B 00:00:00 [facility] Meningococcal 2014-08-24 Completed University of Polysaccharide 00:00:00 [place] [facility] (groups A, C, Y and Branc h W-135) conjugate vaccine (MCV4P) Heamophilus Influenza 2014-08-24 Completed Uni versity of B 00:00:00 [facility] Meningococcal 2014-08-24 Completed University of Polysaccharide 00:00:00 [place] [facility] (groups A, C, Y and Branc h W-135) conjugate vaccine (MCV4P) Heamophilus Influenza 2014-08-24 Completed Uni versity of B 00:00:00 [facility] Meningococcal 2014-08-24 Completed University of Polysaccharide 00:00:00 [place] [facility] (groups A, C, Y and Branc h W-135) conjugate vaccine (MCV4P) Heamophilus Influenza 2014-08-24 Completed Uni versity of B 00:00:00 [facility] Meningococcal 2014-08-24 Completed University of Polysaccharide 00:00:00 [place] [facility] (groups A, C, Y and Branc h W-135) conjugate vaccine (MCV4P) Heamophilus Influenza 2014-08-24 Completed Uni versity of B 00:00:00 [facility] Meningococcal 2014-08-24 Completed University of Polysaccharide 00:00:00 [place] [facility] (groups A, C, Y and Branc h W-135) conjugate vaccine (MCV4P) Heamophilus Influenza 2014-08-24 Completed Uni versity of B 00:00:00 [facility] Meningococcal 2014-08-24 Completed University of Polysaccharide 00:00:00 [place] [facility] (groups A, C, Y and Branc h W-135) conjugate vaccine (MCV4P) Heamophilus Influenza 2014-08-24 Completed Uni versity of B 00:00:00 [facility] Pneumococcal 2014-08-12 Completed University o f Polysaccharide, 00:00:00 [place] [facility] ical PPSV23 (PNEUMOVAX) Branch Influenza Virus 2014-08-12 Completed Universit y of Vaccine Quad IM 3+ 00:00:00 [facility] Pneumococcal 2014-08-12 Completed University o f Polysaccharide, 00:00:00 [place] [facility] ical PPSV23 (PNEUMOVAX) Branch Influenza Virus 2014-08-12 Completed Universit y of Vaccine Quad IM 3+ 00:00:00 [facility] Pneumococcal 2014-08-12 Completed University o f Polysaccharide, 00:00:00 [place] [facility] ical PPSV23 (PNEUMOVAX) Branch Influenza Virus 2014-08-12 Completed Universit y of Vaccine Quad IM 3+ 00:00:00 [facility] Pneumococcal 2014-08-12 Completed University o f Polysaccharide, 00:00:00 [place] [facility] ical PPSV23 (PNEUMOVAX) Branch Influenza Virus 2014-08-12 Completed Universit y of Vaccine Quad IM 3+ 00:00:00 [facility] Pneumococcal 2014-08-12 Completed University o f Polysaccharide, 00:00:00 [place] [facility] ical PPSV23 (PNEUMOVAX) Branch Influenza Virus 2014-08-12 Completed Universit y of Vaccine Quad IM 3+ 00:00:00 [facility] Pneumococcal 2014-08-12 Completed University o f Polysaccharide, 00:00:00 [place] [facility] ical PPSV23 (PNEUMOVAX) Branch Influenza Virus 2014-08-12 Completed Universit y of Vaccine Quad IM 3+ 00:00:00 [facility] Pneumococcal 2014-08-12 Completed University o f Polysaccharide, 00:00:00 [place] [facility] ical PPSV23 (PNEUMOVAX) Branch Influenza Virus 2014-08-12 Completed Universit y of Vaccine Quad IM 3+ 00:00:00 [facility] Branch Pneumococcal 2014-08-12 Completed University o f Polysaccharide, 00:00:00 [place] [facility] ical PPSV23 (PNEUMOVAX) Branch Influenza Virus 2014-08-12 Completed Universit y of Vaccine Quad IM 3+ 00:00:00 [facility] Pneumococcal 2014-08-12 Completed University o f Polysaccharide, 00:00:00 [place] [facility] ical PPSV23 (PNEUMOVAX) Branch Influenza Virus 2014-08-12 Completed Universit y of Vaccine Quad IM 3+ 00:00:00 [facility] Vital Signs Vital Name Observation Time Observation Value Comments Source Systolic blood 2022-04-09 04:30:00 138 mm[Hg] Univer sity of pressure [facility] Diastolic blood 2022-04-09 04:30:00 97 mm[Hg] [facility] Heart rate 2022-04-09 04:30:00 60 /min [facility] Respiratory rate 2022-04-09 04:30:00 17 /min [facility] Oxygen saturation in 2022-04-09 04:30:00 100 /min [facility] Arterial blood by [facility] Pulse oximetry [place] Body temperature 2022-04-09 02:00:00 36.78 Nora [facility] Body height 2022-01-23 16:36:00 172.7 cm [facility] Body weight 2022-01-23 16:36:00 91.173 kg [facility] BMI 2022-01-23 16:36:00 30.56 kg/m2 [facility] height 2021-01-21 08:30:00 68 [in_i] [facility] weight 2021-01-21 08:30:00 226 [lb_av] [facility] temperature 2021-01-21 08:30:00 97.7 [degF] [facility] bmi 2021-01-21 08:30:00 34.36 kg/m2 [facility] blood pressure 2021-01-21 08:30:00 130 mm[Hg] [facility] - systolic [facility] blood pressure 2021-01-21 08:30:00 84 mm[Hg] [facility] - diastolic [facility] height 2021-01-14 08:30:00 68 [in_i] [facility] weight 2021-01-14 08:30:00 226 [lb_av] [facility] temperature 2021-01-14 08:30:00 97.5 [degF] [facility] - [facility] bmi 2021-01-14 08:30:00 34.36 kg/m2 [facility] - [facility] blood pressure 2021-01-14 08:30:00 126 mm[Hg] [facility] - systolic [facility] blood pressure 2021-01-14 08:30:00 74 mm[Hg] [facility] - diastolic [facility] height 2021-01-07 13:00:00 68 [in_i] [facility] weight 2021-01-07 13:00:00 226 [lb_av] [facility] temperature 2021-01-07 13:00:00 98.7 [degF] [facility] - [facility] bmi 2021-01-07 13:00:00 34.36 kg/m2 [facility] - [facility] blood pressure 2021-01-07 13:00:00 132 mm[Hg] [facility] - systolic [facility] blood pressure 2021-01-07 13:00:00 84 mm[Hg] [facility] - diastolic [facility] height 2021-01-02 13:30:00 68 [in_i] [facility] weight 2021-01-02 13:30:00 226 [lb_av] [facility] bmi 2021-01-02 13:30:00 34.36 kg/m2 [facility] - [facility] blood pressure 2021-01-02 13:30:00 132 mm[Hg] [facility] - systolic [facility] blood pressure 2021-01-02 13:30:00 86 mm[Hg] [facility] - diastolic [facility] BP Diastolic 2019-08-07 00:00:00 76 mm[Hg] [facility] Height 2019-08-07 00:00:00 68.5 [in_i] [facility] BP Systolic 2019-08-07 00:00:00 120 mm[Hg] [facility] BP Diastolic 2019-07-17 00:00:00 70 mm[Hg] [facility] Height 2019-07-17 00:00:00 68.5 [in_i] [facility] BMI (Body Mass 2019-07-17 00:00:00 34.5 kg/m2 [facility] Index) Practice BP Systolic 2019-07-17 00:00:00 126 mm[Hg] [facility] Body Weight 2019-07-17 00:00:00 230 [lb_av] [facility] Procedures Procedure Date / Time Performing Clinician Source Performed XR CHEST 2 VW 2022-04-09 03:59:00 Vincent Rader [facility] TROPONIN I 2022-04-09 03:35:00 Vincent Rader [facility] COMP. METABOLIC PANEL 2022-04-09 03:35:00 Vincent Rader [facility] ([id number]) [facility] CBC WITH DIFF 2022-04-09 03:35:00 Vincent Rader [facility] RAPID INFLUENZA A/B 2022-04-09 03:35:00 Vincent Rader [facility] N-TERMINAL PRO-BNP 2022-04-09 03:35:00 Vincent Rader [facility] NOTICE OF PRIVACY 2022-04-09 02:38:07 Doctor Unassigned, No Univ ersity [facility] PRACTICES Name Medical Branch CONSENT/REFUSAL FOR 2022-04-09 02:37:20 Doctor Unassigned, No Un iversity [facility] DIAGNOSIS AND TREATMENT Name Medical Branch AUTHORIZATION FOR 2022-03-12 05:01:00 [facility] Name Medical Branch HOME HEALTH - OTHER 2022-01-14 05:01:00 Doctor Unassigned, No Un iversity of [place] Name Medical Branch Plan of Care Planned Activity Planned Date Details Comments Source Diagnostic Test Pending 2019-08-07 glucose, Vill [facility] Family 00:00:00 fingerstick, Practice blood [code = glucose, fingerstick, blood] Diagnostic Test Pending 2019-08-07 BMP, serum or Raya nuno Family 00:00:00 plasma [code = Practice BMP, serum or plasma] Instructions [facility] Practice Encounters Start End Encounter Admission Attending Care Care Encounter Source Date/Time Date/Time Type Type Clinicians Facility Department ID 2022-04-16 [facility] General Med [id number] [facility] [address] 02:42:53 [facility] 2022-04-16 Inpatient UR JAMAAL [facility] General Med [id number] [facility] 02:35:02 [facility] 2021-12-18 Outpatient [id number] [facility] REF [id number] [facility] 08:29:43 [facility] [place] 2021-12-10 Outpatient 3 [id number] ENC[facility] REF [id number] [facility] 12:33:31 [facility] [place] 2021-12-09 Outpatient 3 [id number] ENC[facility] REF [id number] [facility] 14:43:46 [facility] [place] 2021-06-17 Outpatient IBNS IBNS [id number] Artemio 12:27:28 [id number] Arron 2021-06-11 Outpatient STLMLC STLMLC [id number] Common 13:40:33 00299 [facility] 2019-09-07 Outpatient HEM[facility]OUR, [facility] CAR [id number] [facility] 10:28:52 АЛЕКСАНДР 2022-04-08 2022-04-08 Emergency X AUFDERHEIDE [facility] ERT [id number] Univers 20:54:00 22:51:00 , VINCENT ity of [facility] 2022-04-08 2022-04-08 [facility] 1.2.840.114 [id number] Univers 20:54:00 22:51:00 , Vincent GONZALEZ 350.1.13.10 i ty of [place] 4[place]2.7.2.686 [place] [id number] [facility] 084 [place] 2022-04-08 2022-04-08 Orders Doctor YANDEL 1.2.840.114 [id number] Univers 00:00:00 00:00:00 Only Unassigned, ANIL 350.1.13.10 ity of [facility] 4.2.7.2.686 Jad as [id number] [address] 2022-03-12 2022-03-12 Orders Doctor YANDEL 1.2.840.114 [id number] Univers 00:00:00 00:00:00 Only Unassigned, ANIL 350.1.13.10 ity of [place] [facility] 4.2.7.2.686 Jad as [id number] [address] 2022-02-12 2022-02-12 Telephone [facility] 1.2.840.114 [id number] Univers 00:00:00 00:00:00 [place] 350.1.13.10 it y of [place] 4.2.7.2.686 Jad as CANDACE?BLEA [id number] [address]ICAL [address] [facility] 2022-02-03 2022-02-03 Telephone [facility] 1.2.840.114 [id number] Univers 00:00:00 00:00:00 Benitez L HEALTH 350.1.13.10 it y of [place] 4.2.7.2.686 Jad as CANDACE?BLEA [id number] [address] [facility] 2022-01-26 2022-01-26 Telephone [facility] 1.2.840.114 [id number] Univers 00:00:00 00:00:00 Benitez L HEALTH 350.1.13.10 it y of [place] 4.2.7.2.686 Jad as CANDACE?BLEA [id number] Nh dimitri GARCIA [address] [facility] OFFICE [facility] 2022-01-26 2022-01-26 Telephone Young [facility] [id number] Univers 00:00:00 00:00:00 [facility] 350.1.13.10 it y [facility] 4.2.7.2.686 Jad as CANDACE?BLEA [id number] Nh dimitri GARCIA [address] [facility] OFFICE [facility] 2022-01-23 2022-01-23 [facility] [id number] Univers 11:15:00 12:22:27 GLENNY ity [facility] 2022-01-23 2022-01-23 [facility] 1.2.840.114 [id number] Univers 11:15:00 12:22:27 Visit [facility] 350.1.13.10 it y of [place] 4.2.7.2.686 Jad as CANDACE?BLEA [id number] Nh dimitri GARCIA [address] [facility] OFFICE [facility] 2022-01-23 2022-01-23 [facility] [id number] Univers 11:15:00 12:22:27 [facility] 2022-01-14 2022-01-14 Orders Doctor YANDEL 1.2.840.114 [id number] Univers 00:00:00 00:00:00 Only Unassigned, ANIL 350.1.13.10 ity of [place] [facility] 4.2.7.2.686 Jad as [id number] [address] 2021-12-30 2021-12-30 [facility] 1.2.840.114 [id number] Univers 00:00:00 00:00:00 [facility] HEALTH 350.1.13.10 it y of [facility] 4.2.7.2.686 Jad as CANDACE?BLEA [phone] Nh dimitri GARCIA [address] [facility] OFFICE [facility] 2021-12-25 2021-12-25 [facility]phone [facility] 1.2.840.114 [id number] Univers 00:00:00 00:00:00 Benitez L HEALTH 350.1.13.10 it y of [place] 4.2.7.2.686 Jad as CANDACE?BLEA [id number] Nh dimitri GARCIA [address] [facility] OFFICE [facility] 2021-12-25 2021-12-25 Telephone [facility] 1.2.840.114 [id number] Univers 00:00:00 00:00:00 Benitez Collazo HEALTH 350.1.13.10 it y of [place] 4.2.7.2.686 Jad as CANDACE?BLEA [id number] Nh dimitri GARCIA [address] [facility] OFFICE [facility] 2021-12-23 2021-12-23 Telephone [facility] 1.2.840.114 [id number] Univers 00:00:00 00:00:00 Benitez Collazo HEALTH 350.1.13.10 it y of [place] 4.2.7.2.686 Jad as CANDACE?BLEA [id number] Nh dimitri GARCIA [address] [place] [address] 2021-12-22 2021-12-22 Outpatient Day [facility] [id number] Univers 15:40:00 23:59:00 [facility] 2021-12-22 2021-12-22 [facility]patient [facility] [id number] Univers 15:15:00 16:18:41 [facility] 2021-12-22 2021-12-22 Office [facility] 1.2.840.114 [id number] Univers 15:15:00 16:18:41 Visit [facility] 350.1.13.10 it y of [place] 4.2.7.2.686 Jad as CANDACE?BLEA [id number] Nh dimitri GARCIA [address] [place] [address] [facility] 2021-12-22 2021-12-22 Telephone [facility] 1.2.840.114 [id number] Univers 00:00:00 00:00:00 Benitez Collazo HEALTH 350.1.13.10 it y of [place] 4.2.7.2.686 Jad as CANDACE?BLEA [id number] Nh dimitri GARCIA [address] [place] [address] [facility] 2021-12-09 2021-12-09 Telephone [facility] 1.2.840.114 [id number] Univers 00:00:00 00:00:00 Benitez Collazo [facility] 350.1.13.10 it y [facility] 4.2.7.2.686 Jad as CANDACE?BLEA [id number] Nh dical KNEY [address] [place] MEDICAL OFFICE BUILDING 2021-12-08 2021-12-08 [facility] S[facility] [id number] Univers 10:44:00 16:02:00 BENITEZ ity of [facility] 2021-12-08 2021-12-08 [facility] 1.2.840.114 [id number] Univers 10:44:00 16:02:00 Encounter Benitez GONZALEZ 350.1.13.10 ity of [place].2.[place] [id number] [facility] 020 [place] 2021-12-08 2021-12-08 Surgery Ab [facility] [id number] Univers 12:45:00 14:29:00 Benitez GONZALEZ 350.1.13.10 i ty of [place]2.7.2.[place] SUR[place]ICAL [id number] [facility] 020 [place] 2021-12-08 2021-12-08 Orders Doctor YANDEL 1.2.840.114 [id number] Univers 00:00:00 00:00:00 Only Unassigned, ANIL 350.1.13.10 [place]y of [place] [facility] 4.2.7.2.686 Jad as [id number] [facility] 009 [place] 2021-12-05 2021-12-05 Enamel Sprayer Stephane, Adc Lab Main [facility] 1.2.8 40.114 [id number] Univers 09:15:00 09:30:00 Visit Benitez Berger [place] GONZALEZ 350.1.13.10 ity of [place] 4[place]2.7.2.[place] [id number] Nh dicjyothi NAL 353 [facility] 2021-12-05 2021-12-05 Laboratory Only, Adc Test [facility] 1.2.840. 114 [id number] Univers 08:45:00 09:00:00 Only Benitez Berger 350.1.13.10 it[facility] [place].2.[place].2.[place] [id number] [facility] [address] 2021-12-05 2021-12-05 Outpatient R [facility] [id number] Univers 09:34:20 08:59:00 BENITEZ ity of [facility] 2021-12-05 2021-12-05 [facility] 1.2.840.114 [id number] Univers 08:30:00 08:59:00 Encounter Benitez GONZALEZ 350.1.13.10 ity of [place] 4.2.7.2.[place] [id number] [facility] 807 [place] 2021-12-02 2021-12-02 [facility] 1.2.840.114 [id number] Univers 00:00:00 00:00:00 Surgery Benitez Collazo HEALTH 350.1.13.10 it y [facility] 4.2.7.2.686 Jad as CANDACE?BLEA [id number] Nh dimitri [address] [facility] [facility] 2021-12-01 2021-12-01 Telephone [facility] 1.2.840.114 [id number] Univers 00:00:00 00:00:00 Benitez Collazo HEALTH 350.1.13.10 it y [facility] 4.2.7.2.686 Jad as CANDACE?BLEA [id number] Nh olamide[address] [facility] [facility] 2021-12-01 2021-12-01 Orders Doctor YANDEL 1.2.840.114 [id number] Univers 00:00:00 00:00:00 Only Unassigned, ANIL 350.1.13.10 ity of [place] [facility] 4.2.7.2.686 Jad as [id number] [facility] 009 [place] 2021-11-28 2021-11-28 Telephone [facility] 1.2.840.114 [id number] Univers 00:00:00 00:00:00 Benitez Collazo HEALTH 350.1.13.10 it y of [place] 4.2.7.2.686 Jad as CANDACE?BLEA [id number] Me dimitri GARCIA [address] [facility] 2021-11-25 2021-11-25 Telephone [facility] 1.2.840.114 [id number] Univers 00:00:00 00:00:00 Benitez Collazo [place] 350.1.13.10 it y of [place] 4.2.7.2.686 Jad as CANDACE?BLEA [id number] Me dimitri GARCIA [address] [facility] OFFICE [facility] 2021-11-25 2021-11-25 Orders Doctor YANDEL 1.2.840.114 [id number] Univers 00:00:00 00:00:00 Only Unassigned, ANIL 350.1.13.10 ity of [place] [facility] 4.2.7.2.686 Jad as [id number] [address] 2021-11-24 2021-11-24 [facility] [id number] Univers 14:45:00 15:38:44 BENITEZ heidi [facility] 2021-11-24 2021-11-24 Office [facility] 1.2.882.634 [id number] Univers 14:45:00 15:38:44 Visit [facility] 350.1.13.10 it y of [facility] 4.2.7.2.686 Jad as CANDACE?BLEA [phone] Nh dimitri GARCIA 198 [facility] OFFICE [facility] 2021-11-24 2021-11-24 [facility] [id number] Univers 10:15:00 10:15:00 GLENNY muhammad [facility] 2021-11-13 2021-11-13 Emergency EM Oyebadejo, HCACL AERS [id number] [facility] 07:53:00 11:37:00 Oluwadolapo 65 Cl [facility] 2021-11-13 2021-11-13 Emergency EM Oyebadejo, HCACL HCACL G1029 747-2 [facility] 07:53:00 07:53:00 Oluwadolapo [id number] Cl [facility] 2021-11-06 2021-11-06 Transition NAGI Narayanan 1.2.840.114 [id number] Univers 00:00:00 00:00:00 of Care Alina F[place]AIN 350.1.13.10 i ty of [place].2.[place] [id number] [facility] [address] 2021-10-26 2021-11-05 Inpatient X HANNAH [facility] [place] [id number] Univers 11:31:00 15:25:00 DIANE ity [facility] 2021-10-26 2021-11-05 Hospital Mathew Raines [facility] 1.2.840.1 14 [id number] Univers 11:31:00 15:25:00 Encounter Kandy Sanchez 350.1.13.10 ity of CleoDiane alonso FRANCES 4.2.7.2.686 [facility] [phone] [facility] [address] 2021-09-26 2021-09-26 Office [facility] 1.2.840.114 [id number] Univers 10:30:00 11:00:00 Visit [facility] 350.1.13.10 it y of [place] 4.2.7.2.686 Jad as CANDACE?BLEA [phone] Nh dimitri GARCIA [address] [place] [address] MEDICAL OFFICE BUILDING 2021-09-26 2021-09-26 Outpatient Day [facility] [id number] Univers 10:30:00 10:30:00 GLENNY muhammad [facility] 2021-09-26 2021-09-26 Outpatient Day [facility] [id number] Univers 10:30:00 10:30:00 [facility] 2021-09-15 2021-09-15 Outpatient R [facility] [id number] Univers 12:56:02 23:59:00 VERONICA muhammad o f [facility] 2021-09-15 2021-09-15 [facility] 1.2.537.075 [id number] Univers 12:56:02 23:59:00 Encounter Veronica HEALTH 350.1.13.10 ity of [place] 4.2.7.2.686 Jad as CANDACE?BLEA [id number] Nh dimitri GARCIA 808 [facility] OFFICE [facility] 2021-09-15 2021-09-15 [facility] 1.2.840.114 [id number] Univers 12:40:00 13:03:01 Care Veronica HEALTH 350.1.13.10 i ty of [place] 4.2.7.2.686 Jad as CANDACE?BLEA [id number] Nh dimitri GARCIA 370 [facility][note 3] 2021-07-25 2021-07-25 Outpatient Day [facility] [id number] Univers 10:15:00 10:15:00 GLENNY itheidi [facility] 2021-07-24 2021-07-24 Telephone [facility] 1.2.302.778 [id number] Univers 00:00:00 00:00:00 Glenny S [place] 350.1.13.10 i ty [place] [phone] Nh dimitri KRAMER 198 [facility] 2021-07-21 2021-07-21 Telephone [facility] 1.2.152.268 [id number] Univers 00:00:00 00:00:00 Glenny S HEALTH 350.1.13.10 it y of [place] 4.2.7.2.686 Jad as CANDACE?BLEA [id number] Nh dimitri GARCIA 198 [facility][note 3] 2021-07-18 2021-07-18 Orders Doctor HUMPHRIES 1.2.840.114 [id number] Univers 00:00:00 00:00:00 Only Unassigned, ANIL 350.1.13.10 ity of Mark [facility] 4.2.7.2.686 Jad as [phone] [address] 2021-07-07 2021-07-07 Outpatient Day [facility] [id number] Univers 14:45:00 15:42:55 GLENNY muhammad [facility] 2021-06-30 2021-06-30 Outpatient Day [facility] [id number] Univers 16:00:00 16:00:00 GLENNY muhammad [facility] 2021-06-27 2021-06-27 Orders Doctor HUMPHRIES 1.2.840.114 [id number] Univers 00:00:00 00:00:00 Only Unassigned, ANIL 350.1.13.10 ity of Mark [facility] 4.2.7.2.686 Jad as [phone] [address] 2021-06-12 2021-06-12 Telephone [facility] 1.2.273.454 [id number] Univers 00:00:00 00:00:00 Glenny S HEALTH 350.1.13.10 it y of [facility] 4.2.7.2.686 Jad as CANDACE?BLEA [phone] Nh dimitri GARCIA [address] [place] [address] [facility] 2021-06-11 2021-06-11 Telephone [facility] 1.2.246.030 [id number] Univers 00:00:00 00:00:00 Glenny S HEALTH 350.1.13.10 it y of [facility] 4.2.7.2.686 Jad as CANDACE?BLEA [phone] Nh dimitri GARCIA [address] [place] [address] [facility] 2021-06-06 2021-06-06 [facility] [id number] Univers 08:45:00 09:27:46 GLENNY heidi [facility] 2021-06-06 2021-06-06 Office [facility] 1.2.840.114 [id number] Univers 08:45:00 09:00:00 Visit [facility] HEALTH 350.1.13.10 it y of [place] 4.2.7.2.686 Jad as CANDACE?BLEA [id number] Nh dimitri GARCIA [address] [place] [address] [facility] 2021-06-02 2021-06-02 Emergency X [facility] ERT [id number] Univers 14:15:00 19:32:00 RADHA heidi [facility] 2021-06-02 2021-06-02 Emergency X [facility] ERT [id number] Univers 14:15:00 19:32:00 RADHA muhammad [facility] 2021-06-02 2021-06-02 [facility] 1.2.990.677 [id number] Univers 14:15:00 19:32:00 Radha GONZALEZ 350.1.13.10 ity of [facility] 4.2.7.2.686 [place] [facility] [phone] [facility] [address] 2021-05-28 2021-05-28 Outpatient Davar_P VFP VFP [id number] [facility] 04:30:00 04:30:00 Family Practic e 2021-05-26 2021-05-26 Outpatient [facility] [id number] Univers 15:15:00 23:59:00 GLENNY ity [facility] 2021-05-26 2021-05-26 Hospital [facility] 1.2.840.114 [id number] Univers 15:15:00 23:59:00 Encounter [facility] 350.1.13.10 ity of [place] 4.2.7.2.686 Jad as CANDACE?BLEA [phone] Nh [facility]lamideJackson [facility] CenterFELICIA [address] [facility] 2021-05-26 2021-05-26 Outpatient [facility] [id number] Univers 15:15:00 16:33:32 GLENNY ity [facility] 2021-05-26 2021-05-26 Office [facility] 1.2.840.114 [id number] Univers 15:15:00 15:30:00 Visit [facility] 350.1.13.10 it y of [place] 4.2.7.2.686 Jad as CANDACE?BLEA [phone] Nh dimitri ROLLINS [address] [facility] 2021-05-26 2021-05-26 Orders Doctor YANDEL 1.2.840.114 [id number] Univers 00:00:00 00:00:00 Only Unassigned, ANIL 350.1.13.10 ity of Mark HOSPITAL 4.2.7.2.686 Jad as [id number] [address] 2021-05-15 2021-05-15 Orders Doctor YANDEL 1.2.840.114 [id number] Univers 00:00:00 00:00:00 Only Unassigned, ANIL 350.1.13.10 ity of [place] HOSPITAL 4.2.7.2.686 Jad as [id number] [address] 2021-05-13 2021-05-13 Telephone Ab [facility] 1.2.840.114 [id number] Univers 00:00:00 00:00:00 Benitez Collazo [facility] 350.1.13.10 it y of [facility] 4.2.7.2.686 Jad as CANDACE?BLEA [phone] Nh dimitri GARCIA [address] [place] [address] MEDICAL OFFICE BUILDING 2021-05-12 2021-05-12 Outpatient R YOUNG [facility] SOR [id number] Univers 07:12:00 16:55:00 GLENNY ity of [facility] 2021-05-12 2021-05-12 [facility] Benitez Berger [facility] 1.2.840 .114 [id number] Univers 07:12:00 16:55:00 Encounter Glenny [facility] 350.1.13.10 ity of [facility] [place].2.[place].2.[place] SURGICAL [id number] [facility] [address] 2021-05-12 2021-05-12 Surgery Ab [facility] 1.2.053.297 [id number] Univers 09:00:00 11:18:00 Benitez GONZALEZ 350.1.13.10 i ty of [place].2.7.2.[place] SURGICAL [phone] [facility] [address] 2021-05-12 2021-05-12 Orders Doctor YANDEL 1.2.840.114 [id number] Univers 00:00:00 00:00:00 Only Unassigned, ANIL 350.1.13.10 ity of [place] HOSPITAL 4.2.7.2.686 Jad as [phone] [facility] [address] 2021-05-09 2021-05-09 Laboratory Only, Adc Test [facility] 1.2.840. 114 [id number] Univers 09:45:00 10:00:00 Only Aldo Bustos 350.1.13.10 ity of [place]2.7.2.[place] C[place] [id number] [facility] [address] 2021-05-09 2021-05-09 Outpatient R [facility] [id number] Univers 09:45:00 09:45:00 ALDO ity of [facility] 2021-05-09 2021-05-09 Orders Doctor YANDEL 1.2.840.114 [id number] Univers 00:00:00 00:00:00 Only Unassigned, ANIL 350.1.13.10 ity of [place] [facility] 4.2.7.2.686 Jad as [phone] [facility] [address] 2021-05-08 2021-05-08 Outpatient [facility] [id number] Univers 10:11:52 23:59:00 BENITEZ ity [facility] 2021-05-08 2021-05-08 [facility] 1.2.840.114 [id number] Univers 10:11:52 23:59:00 Encounter Benitez GONZALEZ 350.1.13.10 ity of [facility] [place].2.7.2.[place] [id number] [facility] [address] 2021-05-08 2021-05-08 [facility] 1.2.840.114 [id number] Univers 10:11:07 23:59:00 Encounter Benitez GONZALEZ 350.1.13.10 ity of [facility] [place].2.[place] [id number] [facility] [address] 2021-05-08 2021-05-08 Enamel Sprayer Stephane, Adc Lab Main [facility] 1.2.8 40.114 [id number] Univers 10:00:00 10:15:00 Visit Benitez Berger 350.1.13.10 ity of [facility] [place] [phone] Me dical NAL 353 [facility] 2021-05-08 2021-05-08 Telephone [facility] 1.2.840.114 [id number] Univers 00:00:00 00:00:00 Benitez Collazo HEALTH 350.1.13.10 it y of [facility] 4.2.7.2.686 Jad as CANDACE?BLEA [phone] Me dical KNEY [address] MEDICAL OFFICE BUILDING 2021-05-05 2021-05-05 Orders Doctor HUMPHRIES 1.2.840.114 [id number] Univers 00:00:00 00:00:00 Only Unassigned, ANIL 350.1.13.10 ity of Mark HOSPITAL 4.2.7.2.686 Jad as [id number] [address] 2021-05-01 2021-05-01 Office [facility] 1.2.840.114 [id number] Univers 08:45:00 09:00:00 Visit [facility] 350.1.13.10 it y of [place] 4.2.7.2.686 Jad as CANDACE?BLEA [id number] [address] [facility] 2021-05-01 2021-05-01 Out[facility] [id number] Univers 08:45:00 08:45:00 [facility] 2021-05-01 2021-05-01 Outpatient [facility] [id number] Univers 08:45:00 08:45:00 [facility] 2021-05-01 2021-05-01 Prep [facility] 1.2.840.114 [id number] Univers 00:00:00 00:00:00 Surgery Benitez L HEALTH 350.1.13.10 it y of [place] 4.2.7.2.686 Jad as CANDACE?BLEA [id number] [address] [facility] 2021-04-28 2021-04-28 Orders Doctor YANDEL 1.2.840.114 [id number] Univers 00:00:00 00:00:00 Only Unassigned, ANLI 350.1.13.10 ity of [place] HOSPITAL 4.2.7.2.686 Jad as [id number] [address] 2021-04-22 2021-04-22 (TEL) [facility] [id number] Co mmon 00:00:00 00:00:00 [facility] 2021-04-18 2021-04-18 Telephone [facility] 1.2.840.114 [id number] Univers 00:00:00 00:00:00 Benitez L HEALTH 350.1.13.10 it y of [facility] 4.2.7.2.686 Jad as CANDACE?BLEA [id number] Me dimitri GARCIA 198 [facility] OFFICE [facility] 2021-04-14 2021-04-14 Telephone [facility] 1.2.840.114 [id number] Univers 00:00:00 00:00:00 Benitez TY 350.1.13.10 it y of [facility] 4.2.7.2.686 Jad as CANDACE?BLEA [id number] Me idmitri GARCIA 198 [facility] OFFICE [facility] 2021-04-07 2021-04-07 [facility] [id number] Univers 14:00:00 23:59:00 BENITEZ muhammad [facility] 2021-04-07 2021-04-07 Hospital [facility] 1.2.840.114 [id number] Univers 14:00:00 23:59:00 Encounter Benitez Collazo [facility] 350.1.13.10 ity of [place] 4.2.7.2.686 Jad as CANDACE?BLEA [phone] Nh dimitri GARCIA 809 [facility] OFFICE [facility] 2021-04-07 2021-04-07 Outpatient [facility] [id number] Univers 14:00:00 15:00:54 BENITEZ itheidi [facility] 2021-04-07 2021-04-07 Office [facility] 1.2.338.246 [id number] Univers 13:56:59 15:00:54 Visit Benitez Collazo [facility] 350.1.13.10 it y of [place] 4.2.7.2.686 Jad as CANDACE?BLEA [id number] Nh dimitri GARCIA 198 [facility] OFFICE [facility] 2021-04-07 2021-04-07 Orders Doctor HUMPHRIES 1.2.840.114 [id number] Univers 00:00:00 00:00:00 Only Unassigned, ANIL 350.1.13.10 ity of [place] [facility] 4.2.7.2.686 Jad as [id number] [address] 2021-03-31 2021-03-31 Orders Doctor HUMPHRIES 1.2.840.114 [id number] Univers 00:00:00 00:00:00 Only Unassigned, ANIL 350.1.13.10 ity of [place] [facility] 4.2.7.2.686 [facility] as [phone] [place] [address] 2021-02-10 2021-02-10 (TEL) STLMLC STLMLC [id number] Co mmon 00:00:00 00:00:00 [facility] 2021-01-21 2021-01-21 (TEL) STLMLC STLMLC [id number] Co mmon 00:00:00 00:00:00 [facility] 2021-01-21 2021-01-21 (IN/ASP) STLMLC STLMLC [id number] C ommon 00:00:00 00:00:00 INJ ASP [facility] 2021-01-14 2021-01-14 (IN/ASP) STLMLC STLMLC [id number] C ommon 00:00:00 00:00:00 INJ ASP [facility] 2021-01-07 2021-01-07 (IN/ASP) STLMLC STLMLC [id number] C ommon 00:00:00 00:00:00 INJ ASP [facility] 2021-01-06 2021-01-06 (TEL) STLMLC STLMLC [id number] Co mmon 00:00:00 00:00:00 [facility] 2021-01-02 2021-01-02 OFFICE STLMLC STLMLC [id number] Co mmon 00:00:00 00:00:00 VISIT NEW Spir it PT LEVEL 4 [facility] 2020-07-09 2020-07-09 Outpatient Anderson_C VFP VFP [address] [place] [address] 01:37:00 01:37:00 35455 Family Practic e 2020-03-27 2020-03-27 Outpatient Anderson_C VFP VFP [address] [place] [address] 01:23:00 01:23:00 88869 Family Practic e 2019-08-14 2019-08-14 Outpatient Anderson_C VFP VFP [address] [place] [address] 02:20:00 02:20:00 47731 Family Practic e 2019-08-14 2019-08-14 Outpatient Fields_C VFP VFP [id number] 202 [facility] 02:20:00 02:20:00 13692 Family Practic e 2019-08-07 2019-08-07 Outpatient Anderson_C VFP VFP 7748 94202 [facility] 03:40:00 03:40:00 22778 Family Practic e 2019-08-07 2019-08-07 Cathlyn H VFP [place] - [id number] [facility] 00:00:00 00:00:00 Ashley Lucio Karin mullins MD: [id number] Medical [facility]_HAYLEY_Cain Beltran r [facility] 175, ([facility] [place] [address] , Ph. 2019-08-04 2019-08-04 Outpatient Anderson_C VFP VFP [address] 09:28:00 09:28:00 12844 Family Practic e 2019-07-20 2019-07-20 Outpatient Fields_C VFP VFP [id number] 202 [facility] 02:00:00 02:00:00 82570 Family Practic e 2019-07-20 2019-07-20 Outpatient Anderson_C VFP VFP [address] [place] [address] 02:00:00 02:00:00 64967 Family Practic e 2019-07-18 2019-07-18 Outpatient Anderson_C VFP VFP 7748 94202 [facility] 12:04:00 12:04:00 27621 Family Practic e 2019-07-17 2019-07-17 Outpatient Anderson_C VFP VFP [address] 06:12:00 06:12:00 43316 Family Practic e 2019-07-17 2019-07-17 Cathlyn H VFP [place] - [id number] [facility] 00:00:00 00:00:00 Ashley Lucio Karin mullins MD: [id number] Medical [facility]_HAYLEY_Cain Beltran r [facility] [address], ([facility]) [place] [address] , Ph. 2019-06-28 2019-06-28 Outpatient Fields_C VFP VFP [id number] 202 [facility] 02:57:00 02:57:00 93021 Family Practic e 2019-06-28 2019-06-28 Outpatient Fields_C VFP VF [id number] -202 [facility] 02:57:00 02:57:00 45252 Family Practic e 2019-06-28 2019-06-28 Outpatient Fields_C VFP [facility] [id number] -202 [facility] 02:57:00 02:57:00 35625 Family Practic e 2019-04-26 2019-04-26 Outpatient MHSE MHSE 7500 MH 07:22:00 07:22:00 [facility] irene [facility] l Results Test Description Test Time Test [...] 34.2 g/dL 31.6-35.1 RDW-SD (test code = 04101-2) 45.7 fL 39.0-49.9 RDW-CV (test code = 788-0) 13.9 % 12.0-15.5 PLT (test code = 777-3) See_Comment H [Au tomated message] The system which ge nerated this result transmit octavio reference range: 166 - 35 8 10*3/?L. The reference range was not used to interpret th is result as normal/abnormal . MPV (test code = 11762-5) 9.1 fL 9.5-12.9 L NRBC/100 WBC (test code = See_Comment [ Automated message] The [id number]) system which [employer] nerated this result transmit octavio reference range: 0.0 - 10 .0 /100 WBCs. The reference r jorge was not used to interpr et this result as normal/abnor mal. NRBC x10^3 (test code = See_Comment [Au tomated message] The 4166081554) system which [employer] nerated this result transmit octavio reference range: 10*3/?L. The reference range was not u sed to interpret this result as normal/abnormal . SEG % (test code = 37993-4) 58 % 33-76 LYMPH % (test code = 31 % 14-54 84188-2) MONO % (test code = 03188-5) 8 % 0-4 H EOS % (test code = 73892-7) 3 % 0-3 ANC (test code = 753-4) 7.77 10*3/uL 1.88-7.09 H Lab Interpretation (test Abnormal code = 92497-2) [id number] 04:16:23 Test Item Value Reference Interpretation Comments Range TROPONIN I (test 0.015 ng/mL See_Comment [Automated code = 5821879101) message] The system which generated this result [...] biotin. Lab Interpretation Normal (test code = 85286-8) [facility] [id number] 04:13:21 Test Item Value Reference Range Interpretation Comments NT-proBNP (test code 878 pg/mL See_Comment H [Autom ated = 0714735159) message] The system which generated this result transmitted reference range : <=125. The reference range was not used to interpret this result as normal/abnormal . LIZ (test code = LIZ) Biotin has been reported to cause a negative bias, interpret results relative to patient's use of biotin. Lab Interpretation Abnormal (test code = 68278-5) [facility]. METABOLIC PANEL (17952)2022-04-09 04:01:02 Test Item Value Reference Range Interpretation Comments NA (test code = 139 mmol/L 135-145 0172029146) K (test code = 3.2 mmol/L 3.5-5.0 L 1612620454) CL (test code = 97 mmol/L 98-108 L 9955784788) CO2 TOTAL (test code = 32 mmol/L 23-31 H 1329345107) AGAP (test code = 2-16 2039679778) BUN (test code = 11 mg/dL 7-23 3471430515) GLUCOSE (test code = 161 mg/dL 70-110 H 5676647752) CREATININE (test code = 1.05 mg/dL 0.50-1.04 H 5925270440) TOTAL BILI (test code = 0.4 mg/dL 0.1-1.8 5696199911) CALCIUM (test code = 8.8 mg/dL 8.6-10.6 2215307164) T PROTEIN (test code = 7.3 g/dL 6.3-8.2 1780457038) ALBUMIN (test code = 4.3 g/dL 3.5-5.0 0370742486) ALK PHOS (test code = 87 U/L 34-122 6076793146) ALTv (test code = 20 U/L 5-35 1742-6) AST(SGOT) (test code = 23 U/L 13-40 3588419202) eGFR (test code = mL/min/1.73m2 9639881578) LIZ (test code = LIZ) Association of [...] tests). Lab Interpretation Abnormal (test code = 53638-9) [facility]- XR TIBIA/FIBULA 2 V [id number] 00:00:00 [facility] LAKEName: DSETINY GARAY : 1960 Sex: F FAX: Edith Akhtar MD [phone] [place]: [place] St: REG FAX: Bereket Pratt Name: DESTINY GARAY FSED : 8Age/S: 61/F [address] [facility] Unit #: [id number] Loc: [place] [address] Phys: Wendie Pratt MD Acct: [id number] Dis Date: Status: REG ER PHONE #: Exam Date: 11/13/2021 0900 FAX #:Reason: fall, s/p knee replacement EXAMS: CPT CODE: [id number] XR TIBIA/FIBULA 2 V RT 32636 PROCEDURE INFORMATION: Exam: XR Right Tibia and Fibula Exam date and time: 11/13/2021 8:16 AM Age: 61 years old Clinical indication: Injury or trauma; Fall; Fracture, traumatic; Closed fracture; Ankle; Right; Malleolus, lateral; Additional info: Fall, S/P knee replacement TECHNIQUE: Imaging protocol: Radiologicexam of the Right tibia and fibula. Views: 2 views. COMPARISON: No relevant prior studies available.Impression: Distal fibular metaphyseal minimally displaced fracture. Please see ankle radiograph formore details. No proximal tib fib fractures. Knee joint arthroplasty is visualized and appears to beintact without loosening. at 0859 Reported and signed by: Jose Lozano M.D. CC: Edith Dalal MD; Wendie Pratt MD Technologist: Miguel Angel Bullock RT(R)(CT) Trnscrd Date/Time/By: 11/13/2021 (59) : By: [email or web address] Print D/T: S: 11/13/2021 (03) PAGE 1 Signed Report- XR KNEE 1 OR 2 V [id number] 00:00:00 [facility] L[facility]EN[facility]: DESTINY GARAY : 1960 Sex: F FAX: Edith Akhtar MD [phone] [place]: [place] St: [facility] FAX: Bereket Pratt Name: DESTINY GARAY [place] FSED : 1960 Age/S: 61/F [address] [facility] Unit #: [id number] Loc: [place] [address] Phys: Wendie Pratt MD Acct: [id number] Dis Date: Status: REG ER PHONE #: Exam Date: 11/13/2021 0900 FAX #:Reason: fall, s/p knee replacement EXAMS: CPT CODE: [id number] XR KNEE 1 OR 2 V RT [address]2485 PROCEDURE INFORMATION: Exam: XR Right Knee Exam [...] Miguel Angel Bullock RT(R)(CT) Trnscrd Date/Time/By: 11/13/2021 (899) : By: [email or web address] Orig Print D/T: S: 11/13/2021 (902) PAGE 1 Signed Report- XR ANKLE 2 VIEWS [id number] 00:00:00[facility]: DESTINY GARAY : 1960 Sex: F FAX: Edith Akhtar MD [phone] [place]: [place] St: [facility] FAX: Bereket Pratt Name: DESTINY GAARY FSED : 1960ge/S: 61/F [address] [facility] Unit #: [id number] Loc: [place] [address] Phys: Wendie Pratt MD Acct: [id number] Dis Date: Status: REG ER PHONE #: Exam Date: 11/13/2021 0900 FAX #:Reason: fall, ankle swelling and tenderness medially EXAMS: CPT CODE: [id number] XR [place]KLE [address] [place] [id number] PROCEDURE INFORMATION: Exam: XR Right Ankle Exam [...] 1 Signed ReportSCR MAMM BILATERAL ELENA CAD [id number] 07:52:28 - SCR MAMM BILATERAL ELENA CAD DIGITALBILATERAL DIGITAL SCREENING MAMMOGRAM 3D/2D WITH CAD: 04/25/2019CLINICAL: Asymptomatic. Digital breast tomosynthesis was performed in addition to routine CC and MLO views. Current mammographic images were evaluated by either a [employer] M-Vu or a [employer] ImageCheckerCAD (computer aided detection system). Comparison is made to exams dated 06/17/2016 mammogram, 05/28/2014 mammogram, and 08/07/2008 mammogram - [facility]. The tissue of both breasts [...] one year. Arnold Doyle M.D. et/penrad:04/27/2019 07:52:28 Reliner: Asia Lange FW RT(M), [facility]: BIRADS 1-2 Normal Mammogram BI-RADS: 2 Benign
[2022-06-22] MEDS ORDERED: HYDROCODONE/CHLORPHEN 5 ML/OSYR ONE (23:00)
[2022-06-23 00:16] LABS: SARS-COV-2 RT PCR NEGATIVE (NEGATIVE)
[2022-06-23] MEDS ORDERED: dexAMETHasone 10 MG/ML VIAL ONE (00:35)
[2022-06-23] MEDS ORDERED: ALBUTEROL 2.5 MG/3 ML NEB SOL ONE (00:36)
[2022-06-23] MEDS ORDERED: ONDANSETRON 4 MG (ODT) TAB ONE (00:36)
[2022-06-23] MEDS ORDERED: IPRATROPIUM BROM 0.5MG/2.5ML ONE (00:36)
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
[2022-06-23 02:27] VITALS: TEMP 97.6; O2SAT 97
[2022-06-23 02:28] VITALS: BP 110/66
--- NOTE | 2022-06-23 12:50 | RAD REPORT ---
EXAM DESCRIPTION: RAD - Chest Single View - 06/22/2022 10:58 pm CLINICAL HISTORY: The patient is 62 years old and is Female; COUGH TECHNIQUE: Frontal view of the chest. COMPARISON: No relevant prior studies available. FINDINGS: Lungs: Mildly prominent interstitial markings. Pleural space: Left hemidiaphragm is obscured which can be seen with left pleural effusion, as w ell as left lower lobe consolidation or atelectasis. No pneumothorax. Heart: Unremarkable. Mediastinum: Unremarkable. Bones/joints: Unremarkable. Soft tissues: Shad overlying the left hemithorax. Tubes, lines and devices: Left-sided pacemaker. IMPRESSION: 1. Left hemidiaphragm is obscured which can be seen with left pleural effusion, as wel l as left lower lobe consolidation or atelectasis. 2. Mildly prominent interstitial markings. Electronically signed by: Cody Avery MD 06/22/2022 11:37 PM [employer] Due to temporary technical issues with the PACS/Fluency reporting system, reports are being signed by the in house radiologists without review as a courtesy to insure prompt reporting. The interpreting radiologist is fully responsible for the content of the report.
== END 2022-06-23 02:10 | disposition home or self-care (01) ==
LOC: ER 22:27
DX: J06.9 Acute upper respiratory infection, unspecified (principal); E11.9 Type 2 diabetes mellitus without complications; I50.9 Heart failure, unspecified; I10 Essential (primary) hypertension; Z20.822 Contact with and (suspected) exposure to COVID-19; Z88.2 Allergy status to sulfonamides; Z91.013 Allergy to seafood
CPT/HCPCS: 87070; 87081; 0241U; 71045; J7613; J7644; Q0162; J1100

== ENCOUNTER 2022-06-26 21:23 | Emergency (ER) | payer OTHER ==
--- OUTSIDE RECORDS SUMMARY | 2022-06-26 21:31 | XMS REPORT | Continuity of Care Document ---
:1960 Author Organization [facility] t Address [address] [place] [address] Care Team Providers Name Role Phone Laurel Burris MD Primary Care Physician MAT HINTON Attending Clinician Unavailable [id number] Attending Clinician Unavailable АЛЕКСАНДР HOWELL Attending Clinician Unavailable VINCENT RADER Attending Clinician Unavailable Vincent Rader MD Attending Clinician [phone] Doctor Unassigned, [place] Attending Clinician Unavailable Benitez Berger MD Attending [...] Clinician Unavailable MAT HINTON Admitting Clinician Unavailable [id number] Admitting Clinician Unavailable VINCENT RADER Admitting Clinician [...] Number Effective Date Expiration Date S willie Teracent [id number] 2015 HMO 00:00:00 HLSM HLSM [id number] SELF-PAY CI [id number] [employer] [id number] 2015spring 00:00:00 Teracent [id number] 2019 (MEDICARE 00:00:00 REPLACEMENT/ADVANT AGE - HMO) [employer] [id number] Common Medicare Replace [facility] [id number] Common Medicare Replace [facility] CignaHealthSpring C1 [id number] Common Medicare Replace [facility] C1 [id number] Common Medicare Replace [facility] [id number] Common Medicare Replace [facility] C[facility] [id number] Common Medicare Replace [facility] C1 [id number] Common Medicare Replace [facility] Problems Condition Condition Condition Status Onset Resolution Last Treating Co mments Source Name Details Category Date Date Treatment Clinician Date Closed Closed Disease Active Univers right right 7-19 ity of ankle ankle 00:00: [place] fracture fracture 00 Medica l Branch Sore Sore Disease Active Univers throat throat 6-14 ity of 00:00: [place] Medical Tell Cough Cough Disease Active Univers 6-13 ity of 00:00: [place] [facility] Branch Chronic Chronic Disease Active Univers combined combined 6-13 ity of systolic systolic 00:00: [place] and and Medical diastolic 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 failure failure Pacemaker Pacemaker Disease Active Uni vers 6-13 ity of 00:00: 00 [facility] Type 2 Type 2 Disease Active Univers diabetes diabetes 6-13 ity of mellitus mellitus 00:00: [place] without without 00 Medical complicati complicati Br anch on, on, without without long-term long-term current current use of use of insulin insulin Hypokalemi Hypokalemi Disease Active U nivers a a 6-13 ity of 00:00: [place] Medical Branch Hyponatrem Hyponatrem Disease Active U nivers ia ia 6-13 ity of 00:00: Medical Branch Elevated Elevated Disease Active Unive rs troponin troponin 6-12 ity of 00:00: [place] 00 Medical Branch Elevated Elevated Disease Active Unive rs troponin troponin 6-12 ity of 00:00: [place] Medical Branch Obesity Obesity Disease Active 2020-05 Univers (BMI (BMI 2-22 ity of 30-39.9) 30-39.9) 00:00: [place] 00 Medical Branch Primary Primary Disease Active 2020-05 Overview: Univ ers osteoarthr osteoarthr 2-16 Formattin ity of itis of itis of 00:00: g of this [place] right knee right knee 00 note Me dical might be Branch different from the original. Added automatic ally from request for surgery [id number] Monitoring Monitoring Problem Active V illage of of 07-16 Family pacemaker Pacemaker 00:00: Prac tic 00 e CAD CAD Disease Active Overview: [facility] [...] original. In back s/p Thoracic Radiation Therapy Chronic Chronic Disease Active [facility] systolic [...] 08-12 Luke s 00:00: Medical 00 Center Pericardia Pericardia Disease Active [facility] l effusion l effusion 07-28 Pamela kes 00:00: Medical 00 Center Hyperglyce Hyperglyce Disease Active U nivers lisset lisset 3- ity of 00:00: [place] [address] Medical Branch [id number] Arthritis Problem Active Co mmon [id number] of knee, Spirit right - [facility] Allergies, Adverse Reactions, Alerts Allergy Allergy Status Severity Reaction(s) Onset Inactive Treating Comm ents Source Name Type Date Date Clinician No Known DA Active U [facility] Allergie 6-30 Clear s 00:00: Oliver[place] 00 [facility] Sulfa Drug Active Other - See Unive rs (Sulfona Allergy comments 5-10 ity o f mide 00:00: [place] Antibiot 00 Medical ics) Branch SULFA Drug Active Other-Cmnt Univer s (SULFONA Class 5-10 ity of MIDE 00:00: [place] ANTIBIOT 00 Medical ICS) Branch NO KNOWN Allergy Active [facility] Family History Family Member Diagnosis Comments Start Date Stop Date Source Natural father Hypertension [facility] Natural father Alcohol abuse [facility] Natural father Heart disease [facility] Natural mother Early [facility] Natural sister Hypertension [facility] Natural brother Hypertension [facility] Natural brother Stroke [facility] Social History Social Habit Start Date Stop Date Quantity Comments Source History of [facility] - Tobacco Use [facility] Exposure to 2022-03-29 2022-04-08 Not sure University SARS-CoV-2 00:00:00 20:45:00 [facility] [place] [facility] (event) Branch Alcohol intake 2015-08-13 2015-08-13 Current [facility] es 00:00:00 00:00:00 non-drinker of Medical Ce nter alcohol (finding) Tobacco use and 2015-08-03 2015-08-03 Never used [facility] exposure 00:00:00 00:00:00 [facility] Center Sex Ass[birth year] At [birth year] [facility] 00:00:00 00:00:00 [facility] Center Smoking Status Start Date Stop Date Source Never Smoker [facility] - [facility] Medications Ordered Filled Start Stop [...] by mouth ity of tablet 16:03: at [place] 50 bedtime. Medical Branch bumetanide 0 Yes 1mg Take 1 mg Un irma 1 mg tablet 7-25 by mouth ity of 16:03: in the [place] [address] morning. Medical Branch ARIPiprazol 0 Yes 2mg Take 2 mg U nivers e 2 mg 7-25 by mouth ity of tablet 16:03: daily. [place] [address] Medical Branch insulin NPH Yes 2U inject [...] mouth ity of delayed-rel 16:03: in the [facility] s ease 50 morning. Medical suspension Branch carvediloL Yes 3.125mg Take 3.125 Univers 3.125 mg 7-25 mg by ity of tablet 16:03: mouth in [place] [address] the Medical morning Branch and 3.125 mg in the evening. Take with meals. docusate Yes 100mg Take 100 Univ ers (COLACE) 7-25 mg by ity of 100 mg 16:03: mouth in [place] capsule 50 the Medical morning. Branch allopurinoL [...] mouth ity of 3350 16:03: in the [place] (MIRALAX) 50 morning. Medica l 17 Branch [...] by mouth ity of tablet 16:03: at [place] [address] bedtime. Medical Branch bumetanide Yes 1mg Take 1 mg Un irma 1 mg tablet 7-25 by mouth ity of 16:03: in the [place] [address] morning. Medical Branch ARIPiprazol Yes 2mg Take 2 mg U nivers e 2 mg 7-25 by mouth ity of tablet 16:03: daily. [place] [address] Medical Branch insulin NPH Yes 2U inject [...] mouth ity of delayed-rel 16:03: in the [facility] s ease 50 morning. Medical suspension Branch carvediloL Yes 3.125mg Take 3.125 Univers 3.125 mg 7-25 mg by ity of tablet 16:03: mouth in [place] 50 the Medical morning Branch and 3.125 mg in the evening. Take with meals. docusate Yes 100mg Take 100 Univ ers (COLACE) 7-25 mg by ity of 100 mg 16:03: mouth in [place] capsule 50 the Medical morning. Branch allopurinoL [...] mouth ity of 3350 16:03: in the [place] (MIRALAX) 50 morning. Medica l 17 Branch [...] by mouth ity of tablet 16:03: at [place] [address] bedtime. Medical Branch bumetanide Yes 1mg Take 1 mg Un irma 1 mg tablet 7-25 by mouth ity of 16:03: in the [place] 50 morning. Medical Branch ARIPiprazol Yes 2mg Take 2 mg U nivers e 2 mg 7-25 by mouth ity of tablet 16:03: daily. [place] [address] Medical Branch insulin NPH Yes 2U inject [...] mouth ity of delayed-rel 16:03: in the [facility] s ease 50 morning. Medical suspension Branch carvediloL Yes 3.125mg Take 3.125 Univers 3.125 mg 7-25 mg by ity of tablet 16:03: mouth in [place] 50 the Medical morning Branch and 3.125 mg in the evening. Take with meals. docusate Yes 100mg Take 100 Univ ers (COLACE) 7-25 mg by ity of 100 mg 16:03: mouth in [facility] 50 the Medical morning. Branch allopurinoL Yes [...] mouth ity of 3350 16:03: in the [place] (MIRALAX) 50 morning. Medica l 17 Branch [...] by mouth ity of tablet 16:03: daily. [place] [address] Medical Branch insulin NPH Yes 2U inject [...] mouth ity of delayed-rel 16:03: in the [facility] s ease 50 morning. Medical suspension Branch carvediloL Yes 3.125mg Take 3.125 Univers 3.125 mg 7-25 mg by ity of tablet 16:03: mouth in [place] [address] the Medical morning Branch and 3.125 mg in the evening. Take with meals. docusate Yes 100mg Take 100 Univ ers (COLACE) 7-25 mg by ity of 100 mg 16:03: mouth in [place] capsule 50 the Medical morning. Branch allopurinoL Yes 100mg Take 100 U nivers 100 mg 7-25 mg by ity of tablet 16:03: mouth in [place] 50 the Medical morning. Branch cholecalcif Yes [...] mouth ity of 3350 16:03: in the [place] (MIRALAX) 50 morning. Medica l 17 Branch [...] by mouth ity of tablet 16:03: at [place] [address] bedtime. Medical Branch bumetanide Yes 1mg Take 1 mg Un irma 1 mg tablet 7-25 by mouth ity of 16:03: in the [place] [address] morning. Medical Branch ARIPiprazol Yes 2mg Take 2 mg U nivers e 2 mg 7-25 by mouth ity of tablet 16:03: daily. [place] [address] Medical Branch insulin NPH Yes 2U inject [...] mouth ity of delayed-rel 16:03: in the [facility] s ease 50 morning. Medical suspension Branch carvediloL Yes 3.125mg Take 3.125 Univers 3.125 mg 7-25 mg by ity of tablet 16:03: mouth in [place] 50 the Medical morning Branch and 3.125 mg in the evening. Take with meals. docusate Yes 100mg Take 100 Univ ers (COLACE) 7-25 mg by ity of 100 mg 16:03: mouth in [place] capsule 50 the Medical morning. Branch allopurinoL [...] by mouth ity of tablet 16:03: at [place] [address] bedtime. Medical Branch bumetanide Yes 1mg Take 1 mg Un irma 1 mg tablet 7-25 by mouth ity of 16:03: in the [place] [address] morning. Medical Branch ARIPiprazol Yes 2mg Take 2 mg U nivers e 2 mg 7-25 by mouth ity of tablet 16:03: daily. [place] [address] Medical Branch insulin NPH Yes 2U inject [...] mouth ity of delayed-rel 16:03: in the [facility] s ease 50 morning. Medical suspension Branch carvediloL Yes 3.125mg Take 3.125 Univers 3.125 mg 7-25 mg by ity of tablet 16:03: mouth in [place] [address] the Medical morning Branch and 3.125 mg in the evening. Take with meals. docusate Yes 100mg Take 100 Univ ers (COLACE) 7-25 mg by ity of 100 mg 16:03: mouth in [facility] 50 the Medical morning. Branch allopurinoL Yes [...] mouth ity of 3350 16:03: in the [place] (MIRALAX) 50 morning. Medica l 17 Branch [...] by mouth ity of tablet 16:03: at [place] [address] bedtime. Medical Branch bumetanide Yes 1mg Take 1 mg Un irma 1 mg tablet 7-25 by mouth ity of 16:03: in the [place] 50 morning. Medical Branch ARIPiprazol Yes 2mg Take 2 mg U nivers e 2 mg 7-25 by mouth ity of tablet 16:03: daily. [place] [address] Medical Branch insulin NPH 2022-0 Yes 2U [...] mouth ity of delayed-rel 16:03: in the [facility] s ease 50 morning. Medical suspension Branch [...] mouth ity of 3350 16:03: in the [place] (MIRALAX) 50 morning. Medica l 17 Branch [...] by mouth ity of tablet 16:03: at [place] [address] bedtime. Medical Branch bumetanide Yes 1mg Take 1 mg Un irma 1 mg tablet 7-25 by mouth ity of 16:03: in the [place] [address] morning. Medical Branch ARIPiprazol Yes 2mg Take 2 mg U nivers e 2 mg 7-25 by mouth ity of tablet 16:03: daily. [place] [address] Medical Branch insulin NPH Yes 2U inject [...] mouth ity of delayed-rel 16:03: [facility] morning. Medical suspension Branch [...] by mouth ity of tablet 16:03: at [place] [address] bedtime. Medical Branch bumetanide Yes 1mg Take 1 mg Un irma 1 mg tablet 7-25 by mouth ity of 16:03: in the [place] [address] morning. Medical Branch ARIPiprazol Yes 2mg Take 2 mg U nivers e 2 mg 7-25 by mouth ity of tablet 16:03: daily. [place] [address] Medical Branch insulin NPH Yes 2U inject [...] mouth ity of delayed-rel 16:03: in the [facility] s ease 50 morning. Medical suspension Branch carvediloL Yes 3.125mg Take 3.125 Univers 3.125 mg 7-25 mg by ity of tablet 16:03: mouth in [place] [address] the Medical morning Branch and 3.125 mg in the evening. Take with meals. docusate Yes 100mg Take 100 Univ ers (COLACE) 7-25 mg by ity of 100 mg 16:03: mouth in [place] capsule 50 the Medical morning. Branch allopurinoL [...] mouth ity of 3350 16:03: in the [place] (MIRALAX) 50 morning. Medica l 17 Branch gram/dose powder benzocaine- Yes [id number] 1{lozen Take 1 Univers menthoL 6-15 ge} Lozenge by ity of lozenge 00:00: mouth [place] 00 every 4 Medical (four) Branch hours as needed for Sore throat. magnesium Yes [id number] 400mg Take 1 U nivers oxide 400 6-15 capsule by ity of mg 00:00: mouth [place] magnesium 00 daily. Medical capsule Branch benzocaine- Yes [id number] 1{lozen Take 1 Univers menthoL 6-15 ge} Lozenge by ity of lozenge 00:00: mouth [place] 00 every 4 Medical (four) Branch hours as needed for Sore throat. magnesium Yes [id number] 400mg Take 1 U nivers oxide 400 6-15 capsule by ity of mg 00:00: mouth [place] magnesium 00 daily. Medical capsule Branch benzocaine- Yes [id number] 1{lozen Take 1 Univers menthoL 6-15 ge} Lozenge by ity of lozenge 00:00: mouth [place] 00 every 4 Medical (four) Branch hours as needed for Sore throat. magnesium 2022-0 Yes [id number] 400mg Take 1 U nivers oxide 400 6-15 capsule by ity of mg 00:00: mouth [place] magnesium 00 daily. Medical capsule Branch benzocaine- Yes [id number] 1{lozen Take 1 Univers menthoL 6-15 ge} Lozenge by ity of lozenge 00:00: mouth [place] 00 every 4 Medical (four) Branch hours as needed for Sore throat. magnesium 2021-0 Yes [id number] 400mg Take 1 U nivers oxide 400 6-15 capsule by ity of mg 00:00: mouth [place] magnesium 00 daily. Medical capsule Branch benzocaine- Yes [id number] 1{lozen Take 1 Univers menthoL 6-15 ge} Lozenge by ity of lozenge 00:00: mouth [place] 00 every 4 Medical (four) Branch hours as needed for Sore throat. magnesium 0 Yes [id number] 400mg Take 1 U nivers oxide 400 6-15 capsule by ity of mg 00:00: mouth [place] magnesium 00 daily. Medical capsule Branch benzocaine- Yes [id number] 1{lozen Take 1 Univers menthoL 6-15 ge} Lozenge by ity of lozenge 00:00: mouth [place] 00 every 4 Medical (four) Branch hours as needed for Sore throat. magnesium 0 Yes [id number] 400mg Take 1 U nivers oxide 400 6-15 capsule by ity of mg 00:00: mouth [place] magnesium 00 daily. Medical capsule Branch benzocaine- Yes [id number] 1{lozen Take 1 Univers menthoL 6-15 ge} Lozenge by ity of lozenge 00:00: mouth [place] 00 every 4 Medical (four) Branch hours as needed for Sore throat. magnesium 0 Yes [id number] 400mg Take 1 U nivers oxide 400 6-15 capsule by ity of mg 00:00: mouth [place] magnesium 00 daily. Medical capsule Branch benzocaine- Yes [id number] 1{lozen Take 1 Univers menthoL 6-15 ge} Lozenge by ity of lozenge 00:00: mouth [place] 00 every 4 Medical (four) Branch hours as needed for Sore throat. magnesium 2021-0 Yes [id number] 400mg Take 1 U nivers oxide 400 6-15 capsule by ity of mg 00:00: mouth [place] magnesium 00 daily. Medical capsule Branch benzocaine- Yes [id number] 1{lozen Take 1 Univers menthoL 6-15 ge} Lozenge by ity of lozenge 00:00: mouth [place] 00 every 4 Medical (four) Branch hours as needed for Sore throat. magnesium Yes [id number] 400mg Take 1 U nivers oxide 400 [...] 20 MG 15:36: daily. Medical capsule 54 [place] ferrous 0 Yes 325mg Take 325 [facility] [...] 3-29 by mouth [facility] tablet 15:36: daily. [facility] 54 Center cyclobenzap 2015-0 Yes 10mg Take [address] rine 3-29 by mouth 2 [facility] (FLEXERIL) 15:36: (two) Medica l 10 MG 54 times Center tablet daily as needed for Muscle spasms. simvastatin 2016-0 Yes 20mg QD Take [address] (ZOCOR) 20 3-29 by mouth [facility] MG tablet 15:36: nightly. [facility] 54 Center metFORMIN 2016-0 Yes 1000mg Take 1,[address] (GLUCOPHAGE 3-29 mg by [facility]ukes ) 1000 MG 15:36: mouth 2 Medic al tablet 54 (two) Center times daily with breakfast and dinner. omeprazole 2016-0 Yes 20mg QD Take [address] (PRILOSEC) 3-29 by mouth [facility] 20 MG 15:36: daily. [facility] 54 [place] ferrous 2016-0 Yes 325mg Take 325 [facility] sulfate 325 3-29 mg by [facility] (65 FE) MG 15:36: mouth Medica l tablet 54 daily with Center breakfast. cyanocobala 2016-0 Yes 1000ug QD Take 1,[address] min 1000 3-29 mcg by [facility]ukes MCG tablet 15:36: mouth Medica l 54 daily. [place] aspirin 81 2016-0 Yes 81mg QD Take [address] MG EC 3-29 by mouth [facility] tablet 15:36: daily. [address] cyclobenzap 2016-0 Yes 10mg Take [address] rine 3-29 by mouth 2 [facility] (FLEXERIL) 15:36: (two) Medica l 10 MG 54 times Center tablet daily as needed for Muscle spasms. simvastatin 2016-0 Yes 20mg QD Take [address] (ZOCOR) 20 3-29 by mouth [facility]ukes MG tablet 15:36: nightly. [address] metFORMIN 2016-0 Yes 1000mg Take 1,[address] (GLUCOPHAGE 3-29 mg by [facility] ) 1000 MG 15:36: mouth 2 Medic al tablet 54 (two) Center times daily with breakfast and dinner. omeprazole 2016-0 Yes 20mg QD Take [address] (PRILOSEC) 3-29 by mouth [facility] 20 MG 15:36: daily. Medical [facility] 54 [place] ferrous 2016-0 Yes 325mg Take 325 [facility] sulfate 325 3-29 mg by [facility] (65 FE) MG 15:36: mouth Medica l tablet 54 daily with Center breakfast. cyanocobala 2016-0 Yes 1000ug QD Take 1,[address] min 1000 3-29 mcg by Lukes MCG tablet 15:36: mouth Medica l 54 daily. [place] aspirin 81 2016-0 Yes 81mg QD Take [address] MG EC 3-29 by mouth [facility]ukes tablet 15:36: daily. [address] cyclobenzap 2016-0 Yes 10mg Take [address] rine 3-29 by mouth 2 [facility] (FLEXERIL) 15:36: (two) Medica l 10 MG 54 times Center tablet daily as needed for Muscle spasms. simvastatin 2016-0 Yes 20mg QD Take [address] (ZOCOR) 20 3-29 by mouth [facility]ukes MG tablet 15:36: nightly. [address] metFORMIN 2016-0 Yes 1000mg Take 1,[address] (GLUCOPHAGE 3-29 mg by [facility] ) 1000 MG 15:36: mouth 2 Medic al tablet 54 (two) Center times daily with breakfast and dinner. omeprazole 2016-0 Yes 20mg QD Take [address] (PRILOSEC) 3-29 by mouth [facility] 20 MG 15:36: daily. Medical capsule 54 [place] ferrous 2016-0 Yes 325mg Take 325 [facility] sulfate 325 3-29 mg by [facility] (65 FE) MG 15:36: mouth Medica l tablet 54 daily with Center breakfast. cyanocobala 2016-0 Yes 1000ug QD Take 1,[address] min 1000 3-29 mcg by Lukes MCG tablet 15:36: mouth Medica l 54 daily. [place] aspirin 81 2015-0 Yes 81mg QD Take [address] MG EC 3-29 by mouth [facility]ukes tablet 15:36: daily. [address] cyclobenzap 2016-0 Yes 10mg Take [address] rine 3-29 by mouth 2 [facility] (FLEXERIL) 15:36: (two) Medica l 10 MG 54 times Center tablet daily as needed for Muscle spasms. simvastatin 2016-0 Yes 20mg QD Take [address] (ZOCOR) 20 3-29 by mouth [facility]ukes MG tablet 15:36: nightly. [address] metFORMIN 2015-0 Yes 1000mg Take 1,[address] (GLUCOPHAGE 3-29 mg by [facility]ukes ) 1000 MG 15:36: mouth 2 Medic al tablet 54 (two) Center times daily with breakfast and dinner. omeprazole 2016-0 Yes 20mg QD Take [address] (PRILOSEC) 3-29 by mouth [facility]ukes 20 MG 15:36: daily. Medical capsule 54 [place] ferrous 2016-0 Yes 325mg Take 325 [facility] sulfate 325 3-29 mg by [facility]ukes (65 FE) MG 15:36: mouth Medica l tablet 54 daily with Center breakfast. cyanocobala 2016-0 Yes 1000ug QD Take 1,[address] min 1000 3-29 mcg by Lukes MCG tablet 15:36: mouth Medica l 54 daily. [place] aspirin 81 2016-0 Yes 81mg QD Take [address] MG EC 3-29 by mouth [facility]ukes tablet 15:36: daily. [address] cyclobenzap Yes 10mg Take [address] rine 3-29 by mouth 2 [facility] (FLEXERIL) 15:36: (two) Medica l 10 MG 54 times Center tablet daily as needed for Muscle spasms. simvastatin 2016-0 Yes 20mg QD Take [address] (ZOCOR) 20 3-29 by mouth [facility]ukes MG tablet 15:36: nightly. [address] metFORMIN 2016-0 Yes 1000mg Take 1,[address] (GLUCOPHAGE 3-29 mg by [facility]ukes ) 1000 MG 15:36: mouth 2 Medic al tablet 54 (two) Center times daily with breakfast and dinner. omeprazole 2016- Yes 20mg QD Take [address] (PRILOSEC) 3-29 by mouth [facility] 20 MG 15:36: daily. [address] ferrous 0 Yes 325mg Take 325 [facility] sulfate 325 3-29 mg by [facility]ukes (65 FE) MG 15:36: mouth Medica l tablet 54 daily with Center breakfast. cyanocobala 2016 Yes 1000ug QD Take 1,[address] min 1000 3-29 mcg by Lukes MCG tablet 15:36: mouth Medica l 54 daily. [place] aspirin 81 0 Yes 81mg QD Take [address] MG EC 3-29 by mouth [facility] tablet 15:36: daily. [address] cyclobenzap Yes 10mg Take [address] rine 3-29 by mouth 2 [facility] (FLEXERIL) 15:36: (two) Medica l 10 MG 54 times Center tablet daily as needed for Muscle spasms. simvastatin 2015-0 Yes 20mg QD Take [address] (ZOCOR) 20 3-29 by mouth [facility]ukes MG tablet 15:36: nightly. [address] BD Yes Use as [facility] Ultra-Fine 3-20 directed. Luke s Meli 00:00: Dispense Medical Insulin Pen 00 as Center [place] 4 written, mm x 32 G do [...] Dispense Medical Insulin Pen 00 as Center [place] 4 written, mm x 32 G do [...] Dispense Medical Insulin Pen 00 as Center [place] 4 written, mm x 32 G do [...] Dispense Medical Insulin Pen 00 as Center [place] 4 written, mm x 32 G do [...] Dispense Medical Insulin Pen 00 as Center [place] 4 written, mm x 32 G do [...] times a InPn day by sliding scale. insulin Yes To use 30 [facility] [...] Dispense Medical Insulin Pen 00 as Center [place] 4 written, mm x 32 G do [...] 4-6 hours as needed. Insulin 0 Yes [id number] Use as Univ ers [place], 5-11 directed ity of Disposable, 00:00: daily [place] (BD 00 Medical ULTRAFINE Branch III MINI PEN) 31 x 3/16 " Ndle Insulin Yes [id number] Use as Univ ers [place], 5-11 directed ity of Disposable, 00:00: daily [place] (BD 00 Medical ULTRAFINE Branch III MINI PEN) 31 x 3/16 " Ndle Insulin Yes [id number] Use as Univ ers [place], 5-11 directed ity of Disposable, 00:00: daily [place] (BD 00 Medical ULTRAFINE Branch III MINI PEN) 31 x 3/16 " Ndle Insulin Yes [id number] Use as Univ ers [place], 5-11 directed ity of Disposable, 00:00: daily [place] (BD 00 Medical ULTRAFINE Branch III MINI PEN) 31 x 3/16 " Ndle Insulin 0 Yes [id number] Use as Univ ers [place], 5-11 directed ity of Disposable, 00:00: daily [place] (BD 00 Medical ULTRAFINE Branch III MINI PEN) 31 x 3/16 " Ndle Insulin 2015-0 Yes [id number] Use as Univ ers [place], 5-11 directed ity of Disposable, 00:00: daily [place] (BD 00 Medical ULTRAFINE Branch III MINI PEN) 31 x 3/16 " Ndle Insulin 2014-0 Yes [id number] Use as Univ ers [place], 5-11 directed ity of Disposable, 00:00: daily [place] (BD 00 Medical ULTRAFINE Branch III MINI PEN) 31 x 3/16 " Ndle Insulin 2014-0 Yes [id number] Use as Univ ers [place], 5-11 directed ity of Disposable, 00:00: daily [place] (BD 00 Medical ULTRAFINE Branch III MINI PEN) 31 x 3/16 " Ndle Insulin 2014-0 Yes [id number] Use as Univ ers [place], 5-11 directed ity of Disposable, 00:00: daily [place] (BD 00 Medical ULTRAFINE Branch III MINI PEN) 31 x 3/16 " Ndle aspirin 81 0 Yes 81mg Take 1 Tab U nivers mg chewable 3-29 by mouth ity of tablet 00:00: daily. [place] Medical Branch vitamin 2015-0 Yes 1000ug Take 1 Tab Un irma B-12 3-29 by mouth ity of (CYANOCOBAL 00:00: [place]. [place] [facility] 1,000 00 Medical mcg tablet Branch aspirin 81 0 Yes 81mg Take 1 Tab U nivers mg chewable 3-29 by mouth ity of tablet 00:00: daily. [place] Medical Branch vitamin 2015-0 Yes 1000ug Take 1 Tab Un irma B-12 3-29 by mouth ity of (CYANOCOBAL 00:00: [place]. [place] [facility] 1,000 00 Medical mcg tablet Branch aspirin 81 2014-0 Yes 81mg Take 1 Tab U nivers mg chewable 3-29 by mouth ity of tablet 00:00: daily. [facility] vitamin 2015-0 Yes 1000ug Take 1 Tab Un irma B-12 3-29 by mouth ity of (CYANOCOBAL 00[place] [facility] 1,000 00 Medical mcg tablet Branch aspirin 81 2014-0 Yes 81mg Take 1 Tab U nivers mg chewable 3-29 by mouth ity of tablet 00:00: daily. [facility] vitamin 2015-0 Yes 1000ug Take 1 Tab Un irma B-12 3-29 by mouth ity of (CYANOCOBAL [place] [facility] 1,000 00 Medical mcg tablet Branch aspirin 81 Yes 81mg Take 1 Tab U nivers mg chewable 3-29 by mouth ity of tablet 00:00: daily. [facility] vitamin Yes 1000ug Take 1 Tab Un irma B-12 3-29 by mouth ity of (CYANOCOBAL 00:00: daily. [place] [facility]) ,000 00 Medical mcg tablet Branch aspirin 81 Yes 81mg Take 1 Tab U nivers mg chewable 3-29 by mouth ity of tablet 00:00: daily. [facility] vitamin Yes 1000ug Take 1 Tab Un irma B-12 3-29 by mouth ity of (CYANOCOBAL 00:00: daily. [place] J[facility]) ,000 00 Medical mcg tablet Branch aspirin 81 Yes 81mg Take 1 Tab U nivers mg chewable 3-29 by mouth ity of tablet 00:00: daily. [facility] vitamin Yes 1000ug Take 1 Tab Un irma B-12 3-29 by mouth ity of (CYANOCOBAL 00:00: daily. [place] [facility]) 1,000 00 Medical mcg tablet Branch aspirin Yes 81mg Take 1 Tab U nivers mg chewable 3-29 by mouth ity of tablet 00:00: daily. [facility] vitamin Yes 1000ug Take 1 Tab Un irma B-12 3-29 by mouth ity of (CYANOCOBAL 00:00: daily. [place] JOB) ,000 00 Medical mcg tablet Branch aspirin 81 Yes 81mg Take 1 Tab U nivers mg chewable 3-29 by mouth ity of tablet 00:00: daily. [facility] vitamin Yes 1000ug Take 1 Tab Un irma B-12 3-29 by mouth ity of (CYANOCOBAL 00:00: daily. [place] [facility]) 1,000 00 Medical mcg tablet [...] for 30 days. amiodarone amiodarone No amiodarone [facility] 200 mg 200 mg 200 mg [...] BD Insulin BD Insulin No BD Insulin [facility] Syringe Syringe Syringe [facility] Ultra-Fine Ultra-Fine Ultra-Fine Practic 0.3 mL 31 0.3 mL 31 0.3 mL 31 e gauge x gauge x gauge x 5/16" 5/16" 5/16" bumetanide bumetanide No .5 Q1D bumetanide [facility] 2 mg tablet 2 mg tablet [...] No Dulcolax Raya nuno (bisacodyl) (bisacodyl) (bisacodyl [facility] 1 cup daily 1 cup daily ) 1 cup Practic daily e folic acid folic acid No 1 Q1D folic acid [facility] 1 mg tablet 1 mg tablet 1 mg F amily Take 1 Take 1 tablet Practic tablet tablet Take 1 e every day every day tablet by oral by oral every day route. route. by oral route. lisinopril lisinopril No 1 Q1D lisinopril [facility] 5 mg tablet 5 mg tablet 5 mg F amily Take 1 Take 1 tablet Practic tablet tablet Take 1 e every day every day tablet by oral by oral every day route for route for by oral 90 days. 90 days. route for 90 days. magnesium magnesium No 1 Q1D magnesium [facility] 400 mg (as 400 mg (as [...] e omeprazole omeprazole No 1capsul Q1D omeprazole [place] 40 mg 40 mg e(s) 40 mg [...] days. paroxetine paroxetine No 1 Q1D paroxetine [facility] 20 mg 20 mg 20 mg Family tablet Take tablet Take tablet Practic 1 tablet 1 tablet Take 1 e every day every day tablet by oral by oral every day route for route for by oral 30 days. 30 days. route for 30 days. sertraline sertraline No sertraline [facility] 50 mg 50 mg 50 mg Family [...] 2021-01-21 Completed [facility] - 08:50:00 [facility] Hyalgan 20 mg Hyalgan 20 mg 2021-01-21 Completed [facility] - 08:50:00 [facility] Hyalgan 20 mg Hyalgan 20 mg 2021-01-21 Completed [facility] - 08:50:00 [facility] Hyalgan 20 mg Hyalgan 20 mg 2021-01-14 Completed [facility] - 09:17:00 [facility] Hyalgan 20 mg Hyalgan 20 mg 2021-01-14 Completed [facility] - 09:17:00 [facility] Hyalgan 20 mg Hyalgan 20 mg 2021-01-14 Completed [facility] - 09:17:00 [facility] Hyalgan 20 mg Hyalgan 20 mg 2021-01-14 Completed [facility] - 09:17:00 [facility] Bupivicaine [place] Bupivicaine [place] 2021-01-07 Completed [facility] - 13:41:00 [facility] Kenalog Kenalog 2021-01-07 Completed [facility] - (Triamcinolone) (Triamcinolone) 13:41:00 [facility] Bupivicaine [place] Bupivicaine [place] 2021-01-07 Completed [facility] - 13:41:00 [facility] Kenalog Kenalog 2021-01-07 Completed [facility] - (Triamcinolone) (Triamcinolone) 13:41:00 [facility] Bupivicaine [place] Bupivicaine [place] 2021-01-07 Completed [facility] - 13:41:00 [facility] Kenalog Kenalog 2021-01-07 Completed [facility] (Triamcinolone) (Triamcinolone) 13:41:00 [facility] Bupivicaine [place] Bupivicaine [place] 2021-01-07 Completed [facility] - 13:41:00 [facility] Kenalog Kenalog 2021-01-07 Completed [facility] - (Triamcinolone) (Triamcinolone) 13:41:00 [facility] Bupivicaine [place] Bupivicaine [place] 2021-01-07 Completed [facility] - 13:41:00 [facility] Kenalog Kenalog 2021-01-07 Completed [facility] (Triamcinolone) (Triamcinolone) 13:41:00 [facility] Hyalgan 20 mg Hyalgan 20 mg 2021-01-07 Completed [facility] - 13:40:00 [facility] Hyalgan 20 mg Hyalgan 20 mg 2021-01-07 Completed [facility] - 13:40:00 [facility] Hyalgan 20 mg Hyalgan 20 mg 2021-01-07 Completed [facility] - 13:40:00 [facility] Hyalgan 20 mg Hyalgan 20 mg 2021-01-07 Completed [facility] - 13:40:00 [facility] Hyalgan 20 mg Hyalgan 20 mg 2021-01-07 Completed [facility] - 13:40:00 [facility] influenza, influenza, 2019-03-09 Completed [facility] unspecified unspecified 00:00:00 Practice formulation formulation Meningococcal 2014-08-24 Completed University of Polysaccharide 00:00:00 [place] [facility] (groups A, C, Y and Branc h W-135) conjugate vaccine (MCV4P) Heamophilus Influenza 2014-08-24 Completed Uni versity of B 00:00:00 [facility] Meningococcal 2014-08-24 Completed University of Polysaccharide 00:00:00 [place] [facility] (groups A, C, Y and Branc h W-135) conjugate vaccine (MCV4P) Heamophilus Influenza 2014-08-24 Completed Uni versity of B 00:00:00 [facility] Meningococcal 2014-08-24 Completed University of Polysaccharide 00:00:00 [place] [facility] (groups A, C, Y and Branc h W-135) conjugate vaccine (MCV4P) Heamophilus Influenza 2014-08-24 Completed Uni versity of B 00:00:00 [facility] Meningococcal 2014-08-24 Completed University of Polysaccharide 00:00:00 [place] [facility] (groups A, C, Y and Branc h W-135) conjugate vaccine (MCV4P) Heamophilus Influenza 2014-08-24 Completed Uni versity of B 00:00:00 [facility] Meningococcal 2014-08-24 Completed University of Polysaccharide 00:00:00 [place] [facility] (groups A, C, Y and Branc h W-135) conjugate vaccine (MCV4P) Heamophilus Influenza 2014-08-24 Completed Uni versity of B 00:00:00 [facility] Meningococcal 2014-08-24 Completed University of Polysaccharide 00:00:00 [place] [facility] (groups A, C, Y and Branc h W-135) conjugate vaccine (MCV4P) Heamophilus Influenza 2014-08-24 Completed Uni versity of B 00:00:00 [facility] Meningococcal 2014-08-24 Completed University of Polysaccharide 00:00:00 [facility] nella (groups A, C, Y and Branc h W-135) conjugate vaccine (MCV4P) Heamophilus Influenza 2014-08-24 Completed Uni versity of B 00:00:00 [facility] Meningococcal 2014-08-24 Completed University of Polysaccharide 00:00:00 [facility] nella (groups A, C, Y and Branc h W-135) conjugate vaccine (MCV4P) Heamophilus Influenza 2014-08-24 Completed Uni versity of B 00:00:00 [facility] Meningococcal 2014-08-24 Completed University of Polysaccharide 00:00:00 [facility] nella (groups A, C, Y and Branc h W-135) conjugate vaccine (MCV4P) Heamophilus Influenza 2014-08-24 Completed Uni versity of B 00:00:00 [facility] Pneumococcal 2014-08-12 Completed University o f Polysaccharide, 00:00:00 [facility] ical PPSV23 (PNEUMOVAX) Branch Influenza Virus 2014-08-12 Completed Universit y of Vaccine Quad IM 3+ 00:00:00 [facility] Pneumococcal 2014-08-12 Completed University o f Polysaccharide, 00:00:00 [facility] ical PPSV23 (PNEUMOVAX) Branch Influenza Virus 2014-08-12 Completed Universit y of Vaccine Quad IM 3+ 00:00:00 [facility] Pneumococcal 2014-08-12 Completed University o f Polysaccharide, 00:00:00 [facility] ical PPSV23 (PNEUMOVAX) Branch Influenza Virus 2014-08-12 Completed Universit y of Vaccine Quad IM 3+ 00:00:00 [facility] Pneumococcal 2014-08-12 Completed University o f Polysaccharide, 00:00:00 [place] [facility] ical PPSV23 (PNEUMOVAX) Branch Influenza Virus 2014-08-12 Completed Universit y of Vaccine Quad IM 3+ 00:00:00 [facility] Pneumococcal 2014-08-12 Completed University o f Polysaccharide, 00:00:00 [place] [facility] ical PPSV23 (PNEUMOVAX) Branch Influenza Virus 2014-08-12 Completed Universit y of Vaccine Quad IM 3+ 00:00:00 [facility] Pneumococcal 2014-08-12 Completed University o f Polysaccharide, 00:00:00 [place] [facility] ical PPSV23 (PNEUMOVAX) Branch Influenza Virus 2014-08-12 Completed Universit y of Vaccine Quad IM 3+ 00:00:00 [facility] Pneumococcal 2014-08-12 Completed University o f Polysaccharide, 00:00:00 [place] [facility] ical PPSV23 (PNEUMOVAX) Branch Influenza Virus 2014-08-12 Completed Universit y of Vaccine Quad IM 3+ 00:00:00 [facility] Pneumococcal 2014-08-12 Completed University o f Polysaccharide, 00:00:00 [place] [facility] ical PPSV23 (PNEUMOVAX) Branch Influenza Virus 2014-08-12 Completed Universit y of Vaccine Quad IM 3+ 00:00:00 [facility] Pneumococcal 2014-08-12 Completed University o f Polysaccharide, 00:00:00 [place] [facility] ical PPSV23 (PNEUMOVAX) Branch Influenza Virus 2014-08-12 Completed Universit y of Vaccine Quad IM 3+ 00:00:00 [facility] Vital Signs Vital Name Observation Time Observation Value Comments Source Systolic blood 2022-04-09 04:30:00 138 mm[Hg] Univer sity of pressure [facility] Diastolic blood 2022-04-09 04:30:00 97 mm[Hg] [facility] 2022-04-09 04:30:00 60 /min [facility] Respiratory rate 2022-04-09 04:30:00 17 /min [facility] Oxygen saturation in 2022-04-09 04:30:00 100 /min [facility] Arterial blood by [facility] Pulse oximetry [place] Body temperature 2022-04-09 02:00:00 36.78 Nora [facility] Body height 2022-01-23 16:36:00 172.7 cm [facility] Body weight 2022-01-23 16:36:00 91.173 kg [facility] BMI 2022-01-23 16:36:00 30.56 kg/m2 [facility] height 2021-01-21 08:30:00 68 [in_i] [facility] weight 2021-01-21 08:30:00 226 [lb_av] [facility] - [facility] temperature 2021-01-21 08:30:00 97.7 [degF] [facility] - [facility] bmi 2021-01-21 08:30:00 34.36 kg/m2 [facility] - [facility] blood pressure 2021-01-21 08:30:00 130 mm[Hg] [facility] - systolic [facility] blood pressure 2021-01-21 08:30:00 84 mm[Hg] [facility] - diastolic [facility] height 2021-01-14 08:30:00 68 [in_i] [facility] - [facility] weight 2021-01-14 08:30:00 226 [lb_av] [facility] - [facility] temperature 2021-01-14 08:30:00 97.5 [degF] [facility] - [facility] bmi 2021-01-14 08:30:00 34.36 kg/m2 [facility] - [facility] blood pressure 2021-01-14 08:30:00 126 mm[Hg] [facility] - systolic [facility] blood pressure 2021-01-14 08:30:00 74 mm[Hg] [facility] - diastolic [facility] height 2021-01-07 13:00:00 68 [in_i] [facility] - [facility] weight 2021-01-07 13:00:00 226 [lb_av] [facility] - [facility] temperature 2021-01-07 13:00:00 98.7 [degF] [facility] - [facility] bmi 2021-01-07 13:00:00 34.36 kg/m2 [facility] - [facility] blood pressure 2021-01-07 13:00:00 132 mm[Hg] [facility] - systolic [facility] blood pressure 2021-01-07 13:00:00 84 mm[Hg] [facility] - diastolic [facility] height 2021-01-02 13:30:00 68 [in_i] [facility] weight 2021-01-02 13:30:00 226 [lb_av] [facility] bmi 2021-01-02 13:30:00 34.36 kg/m2 [facility] blood pressure 2021-01-02 13:30:00 132 mm[Hg] [facility] - systolic [facility] blood pressure 2021-01-02 13:30:00 86 mm[Hg] [facility] - diastolic [facility] BP Diastolic 2019-08-07 00:00:00 76 mm[Hg] [facility] Height 2019-08-07 00:00:00 68.5 [in_i] [facility] Practice BP Systolic 2019-08-07 00:00:00 120 mm[Hg] [facility] BP Diastolic 2019-07-17 00:00:00 70 mm[Hg] [facility] Height 2019-07-17 00:00:00 68.5 [in_i] [facility] BMI (Body Mass 2019-07-17 00:00:00 34.5 kg/m2 [facility] BP Systolic 2019-07-17 00:00:00 126 mm[Hg] [facility] Body Weight 2019-07-17 00:00:00 230 [lb_av] [facility] Procedures Procedure Date / Time Performing Clinician Source Performed XR CHEST 2 VW 2022-04-09 03:59:00 [facility] TROPONIN I 2022-04-09 03:35:00 [facility] COMP. METABOLIC PANEL 2022-04-09 03:35:00 Vincent Rader [facility] ([id number]) [facility] CBC WITH DIFF 2022-04-09 03:35:00 [facility] RAPID INFLUENZA A/B 2022-04-09 03:35:00 Vincent Rader [facility] N-TERMINAL PRO-BNP 2022-04-09 03:35:00 Vincent Rader [facility] NOTICE OF PRIVACY 2022-04-09 02:38:07 Doctor Unassigned, No [facility] [place] [facility] Name Medical Branch CONSENT/REFUSAL FOR 2022-04-09 02:37:20 Doctor Unassigned, No Un iversity [facility] DIAGNOSIS AND TREATMENT [facility] Medical Branch AUTHORIZATION FOR 2022-03-12 05:01:00 Doctor Unassigned, No [facility] Name Medical Branch HOME HEALTH - OTHER 2022-01-14 05:01:00 Doctor Unassigned, No Un iversity of [facility] Plan of Care Planned Activity [...] Clinicians Facility Department ID 2022-04-16 Inpatient UR [facility] General Med [id number] [facility] 02:42:53 [facility] 2022-04-16 Inpatient UR JAMAAL [facility] General Med [id number] [facility] 02:35:02 [facility] 2021-12-18 Outpatient [id number] [facility] REF [id number] [facility] 08:29:43 [facility] [place] 2021-12-10 Outpatient 3 [id number] ENC[facility] REF [id number] [facility] 12:33:31 [facility] [place] 2021-12-09 Outpatient 3 [id number] ENCPL REF [id number] [facility] 14:43:46 0726 [facility] [place] 2021-06-17 Outpatient IBNS IBNS [id number] Artemio 12:27:28 [id number] Arron 2021-06-11 Outpatient [facility] [id number] Common 13:40:[id number] [facility] 2019-09-07 Outpatient HEMATPOSMITA, [facility] CAR [id number] [facility] 10:28:52 АЛЕКСАНДР 2022-04-08 2022-04-08 Emergency X AUFDERHEIDE [facility] ERT [id number] Univers 20:54:00 22:51:00 , VINCENT ity of [facility] 2022-04-08 2022-04-08 Emergency Aufderheide [facility] 1.2.840.114 [id number] Univers 20:54:00 22:51:00 , Vincent LISA [id number] i ty of [facility] 4.2.7.2.[place] [id number] [place] [id number] Tell 2022-04-08 2022-04-08 Orders Doctor YANDEL 1.2.840.114 [id number] Univers 00:00:00 00:00:00 Only Unassigned, ANIL 350.1.13.10 ity of [place] [facility] 4.2.7.2.686 Jad as [phone] [address] 2022-03-12 2022-03-12 Orders Doctor YANDEL 1.2.840.114 [id number] Univers 00:00:00 00:00:00 Only Unassigned, ANIL 350.1.13.10 ity of [place] [facility] 4.2.7.2.686 Jad as [id number] [address] 2022-02-12 2022-02-12 Telephone [facility] 1.2.840.114 [id number] Univers 00:00:00 00:00:00 Zmanda 350.1.13.10 it y of [place] 4.2.7.2.686 Jad as CANDACE?BLEA [phone] Il dimitri [address] MEDICAL OFFICE [facility] 2022-02-03 2022-02-03 Telephone [facility] 1.2.840.114 [id number] Univers 00:00:00 00:00:00 Zmanda 350.1.13.10 it y of [place] 4.2.7.2.686 Jad as CANDACE?BLEA [phone] [address] MEDICAL OFFICE [facility] 2022-01-26 2022-01-26 [facility]phone [facility] 1.2.840.114 [id number] Univers 00:00:00 00:00:00 Benitez Collazo HEALTH 350.1.13.10 it y of [place] 4.2.7.2.686 Jad as CANDACE?BLEA [id number] Il dimitri GARCIA [address] [facility] OFFICE [facility] 2022-01-26 2022-01-26 Telephone [facility] [id number] Univers 00:00:00 00:00:00 Glenny Mccord HEALTH 350.1.13.10 it y of [place] 4.2.7.2.686 Jad as CANDACE?BLEA [phone] Il dimitri GARCIA [address] [facility] OFFICE [facility] 2022-01-23 2022-01-23 [facility] [id number] Univers 11:15:00 12:22:27 GLENNY ity [facility] 2022-01-23 2022-01-23 Office [facility] 1.2.840.114 [id number] Univers 11:15:00 12:22:27 Visit Glenny [facility] 350.1.13.10 it [facility] 4.2.7.2.686 Jad as CANDACE?BLEA [phone] Il dimitri GARCIA [address] [place] [address] OFFICE [facility] 2022-01-23 2022-01-23 Outpatient R YOUNG [facility] [id number] Univers 11:15:00 12:22:27 GLENNY ity [facility] 2022-01-14 2022-01-14 Orders Doctor HUMPHRIES 1.2.840.114 [id number] Univers 00:00:00 00:00:00 Only Unassigned, ANIL 350.1.13.10 ity of [place] [facility] 4.2.7.2.686 Jad as [phone] [address] 2021-12-30 2021-12-30 Telephone [facility] 1.2.840.114 [id number] Univers 00:00:00 00:00:00 Benitez Collazo HEALTH 350.1.13.10 it y of [place] 4.2.7.2.686 Jad as CANDACE?BLEA [phone] Il dimitri GARCIA [address] [place] [address] OFFICE [facility] 2021-12-25 2021-12-25 Telephone [facility] 1.2.840.114 [id number] Univers 00:00:00 00:00:00 Benitez L HEALTH 350.1.13.10 it y of [place] 4.2.7.2.686 Jad as CANDACE?BLEA [phone] Il dimitri GARCIA [address] [facility] 2021-12-25 2021-12-25 Telephone [facility] 1.2.840.114 [id number] Univers 00:00:00 00:00:00 Benitez Collazo HEALTH 350.1.13.10 it y of [place] 4.2.7.2.686 Jad as CANDACE?BLEA [phone] Il dimitri GARCIA [address] [facility] 2021-12-23 2021-12-23 Telephone [facility] 1.2.840.114 [id number] Univers 00:00:00 00:00:00 Benitez Collazo HEALTH 350.1.13.10 it y of [place] 4.2.7.2.686 Jad as CANDACE?BLEA [phone] Il dimitri GARCIA [address] [facility] 2021-12-22 2021-12-22 Outpatient [facility] [id number] Univers 15:40:00 23:59:00 [facility] 2021-12-22 2021-12-22 Outpatient [facility] [id number] Univers 15:15:00 16:18:41 [facility] 2021-12-22 2021-12-22 Office [facility] 1.2.840.114 [id number] Univers 15:15:00 16:18:41 Visit [facility] 350.1.13.10 it y of [place] 4.2.7.2.686 Jad as CANDACE?BLEA [id number] Il dimitri GARCIA [address] [facility] 2021-12-22 2021-12-22 Telephone [facility] 1.2.840.114 [id number] Univers 00:00:00 00:00:00 Benitez Collazo HEALTH 350.1.13.10 it y of [place] 4.2.7.2.686 Jad as CANDACE?BLEA [phone] Il dimitri GARCIA [address] MEDICAL OFFICE [facility] 2021-12-09 2021-12-09 Telephone Ab [facility] 1.2.840.114 [id number] Univers 00:00:00 00:00:00 Benitez Collazo [facility] 350.1.13.10 it y [facility] 4.2.7.2.686 Jad as CANDACE?BLEA [id number] Il dimitri GARCIA [address] [facility] OFFICE [facility] 2021-12-08 2021-12-08 Outpatient R [facility] SOR [id number] Univers 10:44:00 16:02:00 BENITEZ ity of [facility] 2021-12-08 2021-12-08 Hospital [facility] 1.2.840.114 [id number] Univers 10:44:00 16:02:00 Encounter Benitez GONZALEZ 350.1.13.10 ity of [place] [id number] [address] 2021-12-08 2021-12-08 Surgery [facility] 1.2.555.493 [id number] Univers 12:45:00 14:29:00 Benitez GONZALEZ 350.1.13.10 i ty of [place] [id number] [address] 2021-12-08 2021-12-08 Orders Doctor YANDEL 1.2.840.114 [id number] Univers 00:00:00 00:00:00 Only Unassigned, ANIL 350.1.13.10 ity of [place] [facility] 4.2.7.2.686 Jad as [phone] [facility] 009 Tell 2021-12-05 2021-12-05 Coach Stephane, Adc Lab Main [facility] 1.2.8 40.114 [id number] Univers 09:15:00 09:30:00 Visit Ab Benitez Vale GONZALEZ 350.1.13.10 ity of [place] PROF[place] [id number] Il dimitri KRAMER 353 [facility] 2021-12-05 2021-12-05 Laboratory Only, Adc Test [facility] 1.2.840. 114 [id number] Univers 08:45:00 09:00:00 Only Benitez Berger 350.1.13.10 ity of [place] 4.2.7.2.686 [facility] [phone] [facility] 353 [place] 2021-12-05 2021-12-05 Outpatient R AB [facility] [id number] Univers 09:34:20 08:59:00 BENITEZ ity of [facility] 2021-12-05 2021-12-05 [facility] 1.2.840.114 [id number] Univers 08:30:00 08:59:00 Encounter Benitez GONZALEZ 350.1.13.10 ity of [place] 4.2.7.2.686 [facility] [id number] [facility] 807 Tell 2021-12-02 2021-12-02 Prep For Ab [facility] 1.2.840.114 [id number] Univers 00:00:00 00:00:00 Surgery Benitez Collazo HEALTH 350.1.13.10 it y of [place] 4.2.7.2.686 Jad as CANDACE?BLEA [id number] [address] MEDICAL OFFICE [facility] 2021-12-01 2021-12-01 Telephone Ab [facility] 1.2.840.114 [id number] Univers 00:00:00 00:00:00 Benitez Collazo HEALTH 350.1.13.10 it y of [place] 4.2.7.2.686 Jad as CANDACE?BLEA [id number] [facility] [address] MEDICAL OFFICE [facility] 2021-12-01 2021-12-01 Orders Doctor YANDEL 1.2.840.114 [id number] Univers 00:00:00 00:00:00 Only Unassigned, ANIL 350.1.13.10 ity of [place] [facility] 4.2.7.2.686 Jad as [id number] [facility] 009 Tell 2021-11-28 2021-11-28 Telephone Ab [facility] 1.2.840.114 [id number] Univers 00:00:00 00:00:00 Benitez Collazo HEALTH 350.1.13.10 it y of [place] 4.2.7.2.686 Jad as CANDACE?BLEA [id number] Me dimitri GARCIA 198 [facility] OFFICE [facility] 2021-11-25 2021-11-25 Telephone [facility] 1.2.840.114 [id number] Univers 00:00:00 00:00:00 Benitez TY 350.1.13.10 it y of [place] 4.2.7.2.686 Jad as CANDACE?BLEA [phone] Il dimitri GARCIA 198 [facility] OFFICE [facility] 2021-11-25 2021-11-25 Orders Doctor YANDEL 1.2.840.114 [id number] Univers 00:00:00 00:00:00 Only Unassigned, ANIL 350.1.13.10 ity of [place] [facility] 4.2.7.2.686 Jad as [phone] [address] 2021-11-24 2021-11-24 [facility] [id number] Univers 14:45:00 15:38:44 BENITEZ muhammad [facility] 2021-11-24 2021-11-24 Office [facility] 1.2.718.087 [id number] Univers 14:45:00 15:38:44 Visit Benitez Collazo [facility] 350.1.13.10 it y [facility] 4.2.7.2.686 Jad as CANDACE?BLEA [phone] Il dimitri GARCIA [address] [place] [address] OFFICE [facility] 2021-11-24 2021-11-24 Outpatient Day V[facility]AL [facility] [id number] Univers 10:15:00 10:15:00 GLENNY ity [facility] 2021-11-13 2021-11-13 Emergency EM Oyebadejo, HCACL AERS [id number] [facility] 07:53:00 11:37:00 Oluwadolapo 65 Cl [facility] 2021-11-13 2021-11-13 Emergency EM Oyebadejo, HCACL HCACL G1029 747-2 [facility] 07:53:00 07:53:00 Oluwadolapo [id number] Cl [facility] 2021-11-06 2021-11-06 Transition NAGI Narayanan 1.2.840.114 [id number] Univers 00:00:00 00:00:00 of Care Alina GRIERY 350.1.13.10 i ty of [place] 4.2.7.2.686 [place] m[place]ord [id number] [facility] [address] 2021-10-26 2021-11-05 Inpatient X HANNAH [facility] [id number] Univers 11:31:00 15:25:00 DIANE ity of [facility] 2021-10-26 2021-11-05 Hospital Mathew Raines [facility] 1.2.840.1 14 [id number] Univers 11:31:00 15:25:00 Encounter Kandy Sanchez 350.1.13.10 ity of [place] 4.2.7.2.686 [facility] [id number] [facility] [address] 2021-09-26 2021-09-26 Office [facility] 1.2.840.114 [id number] Univers 10:30:00 11:00:00 Visit [facility] 350.1.13.10 it y of [place] 4.2.7.2.686 Jad as CANDACE?BLEA [id number] [address] MEDICAL OFFICE BUILDING 2021-09-26 2021-09-26 Outpatient Day [facility] [id number] Univers 10:30:00 10:30:00 GLENNY muhammad [facility] 2021-09-26 2021-09-26 Outpatient Day [facility] [id number] Univers 10:30:00 10:30:00 GLENNY muhammad [facility] 2021-09-15 2021-09-15 Outpatient R [facility]ER [facility] [id number] Univers 12:56:02 23:59:00 VERONICA muhammad o f [facility] 2021-09-15 2021-09-15 [facility] 1.2.637.217 [id number] Univers 12:56:02 23:59:00 Encounter Veronica HEALTH 350.1.13.10 ity of [place] 4.2.7.2.686 Jad as CANDACE?BLEA [id number] Me dicjyothi GARCIA 808 [facility] 2021-09-15 2021-09-15 Urgent [facility] 1.2.840.114 [id number] Univers 12:40:00 13:03:01 Care [facility] 350.1.13.10 i ty of [place] 4.2.7.2.686 Jad as CANDACE?BLEA [phone] Il dicjyothi GARCIA 370 [facility] 2021-07-25 2021-07-25 Outpatient Day [facility] [id number] Univers 10:15:00 10:15:00 GLENNY muhammad [facility] 2021-07-24 2021-07-24 Telephone [facility] 1.2.221.369 [id number] Univers 00:00:00 00:00:00 Glenny S [place] 350.1.13.10 i ty of [place].2.7.2.[place] [id number] Me dimitri KRAMER 198 [facility] 2021-07-21 2021-07-21 Telephone [facility] 1.2.052.038 [id number] Univers 00:00:00 00:00:00 [facility] 350.1.13.10 it y of [place] 4.2.7.2.686 Jad as CANDACE?BLEA [id number] Il dimitri GARCIA 198 [facility] 2021-07-18 2021-07-18 Orders Doctor YANDEL 1.2.840.114 [id number] Univers 00:00:00 00:00:00 Only Unassigned, ANIL 350.1.13.10 ity of [place] [facility] 4.2.7.2.686 Jad as [id number] [address] 2021-07-07 2021-07-07 Outpatient Day [facility] [id number] Univers 14:45:00 15:42:55 GLENNY muhammad [facility] 2021-06-30 2021-06-30 Outpatient Day [facility] [id number] Univers 16:00:00 16:00:00 [facility] 2021-06-27 2021-06-27 Orders Doctor YANDEL 1.2.840.114 [id number] Univers 00:00:00 00:00:00 Only Unassigned, ANIL 350.1.13.10 ity of [place] [facility] 4.2.7.2.686 Jad as [phone] [address] 2021-06-12 2021-06-12 Telephone Young [facility] 1.2.371.555 [id number] Univers 00:00:00 00:00:00 Glenny HEALTH 350.1.13.10 it y of [place] 4.2.7.2.686 Jad as CANDACE?BLEA [id number] Il dimitri GARCIA [address] [place] [address] OFFICE [facility] 2021-06-11 2021-06-11 Telephone Young [facility] 1.2.832.377 [id number] Univers 00:00:00 00:00:00 Glenny S HEALTH 350.1.13.10 it y [facility] 4.2.7.2.686 Jad as CANDACE?BLEA [phone] Il dimitri ROLLINS[address] OFFICE [facility] 2021-06-06 2021-06-06 Outpatient R YOUNG [facility] [id number] Univers 08:45:00 09:27:46 GLENNY [facility] 2021-06-06 2021-06-06 Office [facility] 1.2.840.114 [id number] Univers 08:45:00 09:00:00 Visit [facility] 350.1.13.10 it y of [place] 4.2.7.2.686 Jad as CANDACE?BLEA [id number] Il dimitri ROLLINS[address] OFFICE [facility] 2021-06-02 2021-06-02 Emergency X NICOLASA [facility] ERT [id number] Univers 14:15:00 19:32:00 RADHA heidi [facility] 2021-06-02 2021-06-02 Emergency X NICOLASA [facility] ERT [id number] Univers 14:15:00 19:32:00 RADHA [facility] 2021-06-02 2021-06-02 Emergency Nicolasa [facility] 1.2.945.345 [id number] Univers 14:15:00 19:32:00 Radha GONZALEZ 350.1.13.10 ity [facility] 4.2.7.2.686 [place] [facility] [id number] [facility] [address] 2021-05-28 2021-05-28 Outpatient Davar_P VFP VFP [id number] 202 [facility] 04:30:00 04:30:00 Family Practic e 2021-05-26 2021-05-26 [facility] [id number] Univers 15:15:00 23:59:00 GLENNY ity [facility] 2021-05-26 2021-05-26 Hospital [facility] 1.2.840.114 [id number] Univers 15:15:00 23:59:00 Encounter [facility] 350.1.13.10 ity of [place] 4.2.7.2.686 Jad as CANDACE?BLEA [id number] Il dimitri GARCIA [address] MEDICAL OFFICE [facility] 2021-05-26 2021-05-26 Outpatient [facility] [id number] Univers 15:15:00 16:33:32 [facility] Center [facility] 2021-05-26 2021-05-26 Office [facility] 1.2.840.114 [id number] Univers 15:15:00 15:30:00 Visit [facility] 350.1.13.10 it y of [place] 4.2.7.2.686 Jad as CANDACE?BLEA [id number] Il dimitri GARCIA [address] MEDICAL OFFICE [facility] 2021-05-26 2021-05-26 Orders Doctor HUMPHRIES 1.2.840.114 [id number] Univers 00:00:00 00:00:00 Only Unassigned, ANIL 350.1.13.10 ity of [place] [facility]OSPITAL 4.2.7.2.686 Jad as [phone] [facility] [address] 2021-05-15 2021-05-15 Orders Doctor HUMPHRIES 1.2.840.114 [id number] Univers 00:00:00 00:00:00 Only Unassigned, ANIL 350.1.13.10 ity of [place] [facility]OSPITAL 4.2.7.2.686 Jad as [phone] [facility] [address] 2021-05-13 2021-05-13 Telephone Ab [facility] 1.2.840.114 [id number] Univers 00:00:00 00:00:00 Benitez Collazo [facility] 350.1.13.10 it y of [facility] 4.2.7.2.686 Jad as CANDACE?BLEA [phone] Il dimitri [address] MEDICAL OFFICE BUILDING 2021-05-12 2021-05-12 Outpatient R YOUNG N[facility] [id number] Univers 07:12:00 16:55:00 GLENNY ity of [facility] 2021-05-12 2021-05-12 Hospital Benitez Berger [facility] 1.2.840 .114 [id number] Univers 07:12:00 16:55:00 Encounter Glenny Vidal [place] 350.1.13.10 ity of [place] 4.2.7.2.686 [place] [address] [id number] [facility] ica CENTER [address] 2021-05-12 2021-05-12 Surgery Ab [facility] 1.2.653.492 [id number] Univers 09:00:00 11:18:00 Benitez GONZALEZ 350.1.13.10 i ty of [place] 4.2.7.2.686 [place]ICAL [id number] [facility] [address] 2021-05-12 2021-05-12 Orders Doctor YANDEL 1.2.840.114 [id number] Univers 00:00:00 00:00:00 Only Unassigned, ANIL 350.1.13.10 ity of [place] [facility]OSPITAL 4.2.7.2.686 Jad as [id number] [facility] [address] 2021-05-09 2021-05-09 Laboratory Only, Adc Test [facility] 1.2.840. 114 [id number] Univers 09:45:00 10:00:00 Only Aldo Bustos 350.1.13.10 ity of [facility] 4.2.7.2.[place] [id number] [facility] [address] 2021-05-09 2021-05-09 Outpatient [facility] [id number] Univers 09:45:00 09:45:00 ALDO muhammad of [facility] 2021-05-09 2021-05-09 Orders Doctor YANDEL 1.2.840.114 [id number] Univers 00:00:00 00:00:00 Only Unassigned, ANIL 350.1.13.10 ity of [place] [facility]OSPITAL 4.2.7.2.686 Jad as [id number] [facility] [address] 2021-05-08 2021-05-08 Outpatient R [facility] [id number] Univers 10:11:52 23:59:00 BENITEZ jimenezy of [facility] 2021-05-08 2021-05-08 [facility] 1.2.840.114 [id number] Univers 10:11:52 23:59:00 Encounter Benitez GONZALEZ 350.1.13.10 ity of [facility] 4.2.7.2.[place] [id number] [facility] [address] 2021-05-08 2021-05-08 [facility] 1.2.840.114 [id number] Univers 10:11:07 23:59:00 Encounter Benitez GONZALEZ 350.1.13.10 ity of [facility] 4.2.7.[place] [id number] [facility] [address] 2021-05-08 2021-05-08 Coach Stephane, Yuniel Lab Main [facility] 1.2.8 40.114 [id number] Univers 10:00:00 10:15:00 Visit Benitez Berger 350.1.13.10 ity of [facility] 4.2.7.2.[place] [id number] Il dical NIA [address] BUILDING 2021-05-08 2021-05-08 Telephone [facility] 1.2.840.114 [id number] Univers 00:00:00 00:00:00 Benitez Collazo HEALTH 350.1.13.10 it y of [place] 4.2.7.2.686 Jad as CANDACE?BLEA [id number] Il dical KNEY [address] MEDICAL OFFICE BUILDING 2021-05-05 2021-05-05 Orders Doctor YANDEL 1.2.840.114 [id number] Univers 00:00:00 00:00:00 Only Unassigned, ANIL 350.1.13.10 ity of [place] HOSPITAL 4.2.7.2.686 Jad as [id number] [address] 2021-05-01 2021-05-01 Office Young [facility] 1.2.840.114 [id number] Univers 08:45:00 09:00:00 Visit [facility] 350.1.13.10 it y of [place] 4.2.7.2.686 Jad as CANDACE?BLEA [id number] Il olamidejyothi GARCIA [address] [place] [address] 2021-05-01 2021-05-01 Outpatient R YOUNG [facility] [id number] Univers 08:45:00 08:45:00 [facility] 2021-05-01 2021-05-01 Outpatient Day [facility] [id number] Univers 08:45:00 08:45:00 [facility] Center Hospital 2021-05-01 2021-05-01 Prep For Ab NMPAT 1.2.840.114 [id number] Univers 00:00:00 00:00:00 Surgery [facility] 350.1.13.10 it y [facility] 4.2.7.2.686 Jad as CANDACE?BLEA [id number] Il dimitri AYO[address] 2021-04-28 2021-04-28 Orders Doctor HUMPHRIES 1.2.840.114 [id number] Univers 00:00:00 00:00:00 Only Unassigned, ANIL 350.1.13.10 ity of [place] HOSPITAL 4.2.7.2.686 Jad as [phone] [address] 2021-04-22 2021-04-22 (TEL) [facility] [id number] Co mmon 00:00:00 00:00:00 [facility] 2021-04-18 2021-04-18 Telephone Ab NMPAT 1.2.840.114 [id number] Univers 00:00:00 00:00:00 Benitez TY 350.1.13.10 it y of [place] 4.2.7.2.686 Jad as CANDACE?BLEA [phone] Il dimitri GARCIA [address] MEDICAL OFFICE [facility] 2021-04-14 2021-04-14 Telephone [facility] 1.2.840.114 [id number] Univers 00:00:00 00:00:00 Benitez TY 350.1.13.10 it y of [facility] 4.2.7.2.686 Jad as CANDACE?BLEA [id number] Il dimitri GARCIA [address] MEDICAL OFFICE [facility] 2021-04-07 2021-04-07 Outpatient [facility] [id number] Univers 14:00:00 23:59:00 BENITEZ itheidi [facility] 2021-04-07 2021-04-07 Hospital [facility] 1.2.840.114 [id number] Univers 14:00:00 23:59:00 Encounter Benitez TY 350.1.13.10 ity of [place] 4.2.7.2.686 Jad as CANDACE?BLEA [id number] Il dimitri GARCIA 809 [facility] OFFICE [facility] 2021-04-07 2021-04-07 Out[facility] [id number] Univers 14:00:00 15:00:54 [facility] 2021-04-07 2021-04-07 Office [facility] 1.2.346.082 [id number] Univers 13:56:59 15:00:54 Visit Benitez TY 350.1.13.10 it y of [place] 4.2.7.2.686 Jad as CANDACE?BLEA [id number] Il dimitri GARCIA [address] MEDICAL OFFICE [facility] 2021-04-07 2021-04-07 Orders Doctor HUMPHRIES 1.2.840.114 [id number] Univers 00:00:00 00:00:00 Only Unassigned, ANIL 350.1.13.10 ity of [place] HOSPITAL 4.2.7.2.686 Jad as [id number] [address] 2021-03-31 2021-03-31 Orders Doctor YANDEL 1.2.840.114 [id number] Univers 00:00:00 00:00:00 Only Unassigned, ANIL 350.1.13.10 ity of [place] [facility] 4.2.7.2.686 Jad as [id number] [place] [address] [address] 2021-02-10 2021-02-10 (TEL) STLMLC STLMLC [id number] Co mmon 00:00:00 00:00:00 [facility] 2021-01-21 2021-01-21 (TEL) STLMLC STLMLC [id number] Co mmon 00:00:00 00:00:00 [facility] 2021-01-21 2021-01-21 (IN/ASP) STLMLC STLMLC [id number] C ommon 00:00:00 00:00:00 INJ ASP [facility] 2021-01-14 2021-01-14 (IN/ASP) STLMLC STLMLC [id number] C ommon 00:00:00 00:00:00 INJ ASP [facility] 2021-01-07 2021-01-07 (IN/ASP) STLMLC STLMLC [id number] C ommon 00:00:00 00:00:00 INJ ASP [facility] 2021-01-06 2021-01-06 (TEL) STLMLC STLMLC [id number] Co mmon 00:00:00 00:00:00 [facility] 2021-01-02 2021-01-02 OFFICE STLMLC STLMLC [id number] Co mmon 00:00:00 00:00:00 VISIT NEW Spir it PT LEVEL 4 [facility] 2020-07-09 2020-07-09 Outpatient Anderson_C VFP VFP 77[address] [facility] 01:37:00 01:37:00 09038 Family Practic e 2020-03-27 2020-03-27 Outpatient Anderson_C VFP VFP 77[address] [facility] 01:23:00 01:23:00 09072 Family Practic e 2019-08-14 2019-08-14 Outpatient Anderson_C VFP VFP 7748 [facility] 02:20:00 02:20:00 92786 Family Practic e 2019-08-14 2019-08-14 Outpatient Fields_C VFP VFP [id number] 202 [facility] 02:20:00 02:20:00 62708 Family Practic e 2019-08-07 2019-08-07 Outpatient Anderson_C VFP VFP 7748 94202 [facility] 03:40:00 03:40:00 09259 Family Practic e 2019-08-07 2019-08-07 Cathlyn H VFP [place] - [id number] [facility] 00:00:00 00:00:00 Ashley Lucio Karin mullins MD: [id number] Medical [facility] BHUPINDER_HAYLEY_Cain [facility] [address], ([facility]) [place] [address] , Ph. 2019-08-04 2019-08-04 Outpatient Anderson_C VFP VFP [address] 09:28:00 09:28:00 01887 Family Practic e 2019-07-20 2019-07-20 Outpatient Fields_C VFP VFP [id number] 202 [facility] 02:00:00 02:00:00 87351 Family Practic e 2019-07-20 2019-07-20 Outpatient Anderson_C VFP VFP 7748 94202 [facility] 02:00:00 02:00:00 12357 Family Practic e 2019-07-18 2019-07-18 Outpatient Anderson_C VFP VFP [address] 12:04:00 12:04:00 57049 Family Practic e 2019-07-17 2019-07-17 Outpatient Anderson_C VFP VFP [address] 06:12:00 06:12:00 46536 Family Practic e 2019-07-17 2019-07-17 Cathlyn H VFP [place] - [id number] [facility] 00:00:00 00:00:00 Ashley Luciomahnaz mullins MD: [id number] Medical - [facility] VM_HOU_Suga jr [facility] [address], ([facility]) [place] [address] , Ph. 2019-06-28 2019-06-28 Outpatient Fields_C VFP VFP [id number] 202 [facility] 02:57:00 02:57:00 85774 Family Practic e 2019-06-28 2019-06-28 Outpatient Fields_C VFP VFP [id number] -202 [facility] 02:57:00 02:57:00 56690 Family Practic e 2019-06-28 2019-06-28 Outpatient Fields_C VFP VF [id number] -202 [facility] 02:57:00 02:57:00 03565 Family Practic e 2019-04-26 2019-04-26 Outpatient MHSE MHSE 7500 MH 07:22:00 07:22:00 Milka mccain [facility] l Results Test Description Test Time [...] 34.2 g/dL 31.6-35.1 RDW-SD (test code = 74751-0) 45.7 fL 39.0-49.9 RDW-CV (test code = 788-0) 13.9 % 12.0-15.5 PLT (test code = 777-3) See_Comment H [Au tomated message] The system which ge nerated this result transmit octavio reference range: 166 - 35 8 10*3/?L. The reference range was not used to interpret th is result as normal/abnormal . MPV (test code = 85190-6) 9.1 fL 9.5-12.9 L NRBC/100 WBC (test code = See_Comment [ Automated message] The [id number]) system which [facility] nerated this result transmit octavio reference range: 0.0 - 10 .0 /100 WBCs. The reference r jorge was not used to interpr et this result as normal/abnor mal. NRBC x10^3 (test code = See_Comment [Au tomated message] The 0410297493) system which ge nerated this result transmit octavio reference range: 10*3/?L. The reference range was not u sed to interpret this result as normal/abnormal . SEG % (test code = 67113-5) 58 % 33-76 LYMPH % (test code = 31 % 14-54 32575-1) MONO % (test code = 89318-0) 8 % 0-4 H EOS % (test code = 58543-4) 3 % 0-3 ANC (test code = 753-4) 7.77 10*3/uL 1.88-7.09 H Lab Interpretation (test Abnormal code = 00968-6) [facility] [id number] 04:16:23 Test Item Value Reference Interpretation Comments Range TROPONIN I (test 0.015 ng/mL See_Comment [Automated code = 4750092413) message] The system which generated this result [...] biotin. Lab Interpretation Normal (test code = 48710-7) [id number] 04:13:21 Test Item Value Reference Range Interpretation Comments NT-proBNP (test code 878 pg/mL See_Comment H [Autom ated = 6207001015) message] The system which generated this result transmitted reference range : <=125. The reference range was not used to interpret this result as normal/abnormal . LIZ (test code = LIZ) Biotin has been reported to cause a negative bias, interpret results relative to patient's use of biotin. Lab Interpretation Abnormal (test code = 45141-5) [facility]. METABOLIC PANEL (25294)2022-04-09 04:01:02 Test Item Value Reference Range Interpretation Comments NA (test code = 139 mmol/L 135-145 0098894746) K (test code = 3.2 mmol/L 3.5-5.0 L 7998009580) CL (test code = 97 mmol/L 98-108 L 2126519316) CO2 TOTAL (test code = 32 mmol/L 23-31 H 6758673410) AGAP (test code = 2-16 9390748401) BUN (test code = 11 mg/dL 7-23 3956424959) GLUCOSE (test code = 161 mg/dL 70-110 H 5345665112) CREATININE (test code = 1.05 mg/dL 0.50-1.04 H 3886140329) TOTAL BILI (test code = 0.4 mg/dL 0.1-1.3 1829699394) CALCIUM (test code = 8.8 mg/dL 8.6-10.6 6165087299) T PROTEIN (test code = 7.3 g/dL 6.3-8.2 2199802114) ALBUMIN (test code = 4.3 g/dL 3.5-5.0 5273323630) ALK PHOS (test code = 87 U/L 34-122 0844967142) ALTv (test code = 20 U/L 5-35 1742-6) AST(SGOT) (test code = 23 U/L 13-40 9622281980) eGFR (test code = mL/min/1.73m2 0140366035) LIZ (test code = LIZ) Association of [...] tests). Lab Interpretation Abnormal (test code = 73325-6) [facility]- XR TIBIA/FIBULA 2 V [id number] 00:00:00 [facility]: DESTINY GARAY : 1960 Sex: F FAX: Edith Akhtar MD [phone] [place]: [place] St: [facility] FAX: Berekte Pratt Name: DESTINY GARAY FSED : 8Age/S: 61/F [address] [facility] Unit #: [id number] Loc: [place] [address] Phys: Wendie Pratt MD Acct: [id number] Dis Date: Status: REG ER PHONE #: Exam Date: 11/13/2021 0900 FAX #:Reason: fall, s/p knee replacement EXAMS: CPT CODE: [id number] XR TIBIA/FIBULA 2 V RT 16785 PROCEDUREINFORMATION: Exam: XR Right Tibia and Fibula Exam date and time: 11/13/2021 8:16 AM Age: 61 years oldClinical indication: Injury or trauma; Fall; Fracture, traumatic; Closed fracture; Ankle; Right; Mal leolus, lateral; Additional info: Fall, S/P knee replacement TECHNIQUE: Imaging protocol: Radiologicexam of the Right tibia and fibula. Views: 2 views. COMPARISON: No relevant prior studies available.Impression: Distal fibular metaphyseal minimally displaced fracture. Please see ankle radiograph formore details. No proximal tib fib fractures. Knee joint arthroplasty is visualized and appears to beintact without loosening. [id number] Reported and signed by: Jose Lozano M.D. CC: Edith Dalal MD; Wendie Pratt MD Technologist: RT Freddy(R)(CT) Trnscrd Date/Time/By: 11/13/2021 (59) : By: [email or web address] Orig Print D/T: S: 11/13/2021 (7745) PAGE 1 Signed Report- XR KNEE 1 OR 2 V [id number] 00:00:00 [facility] [place]: DESTINY GARAY : 1960 Sex: F FAX: Edith Akhtar MD [phone] [place]: [place] St: [facility] FAX: Bereket Pratt Name: DESTINY GARAY Ian FSED : 1960 Age/S: 61/F [address] [facility] Unit #: [id number] Loc: [place] [address] Phys: Wendie Pratt MD Acct: [id number] Dis Date: Status: REG ER PHONE #: Exam Date: 11/13/2021 0900 FAX #: Reason: fall, s/p knee replacement EXAMS: CPT CODE: [id number] XR KNEE 1 OR 2 V RT [id number] PROCEDURE INFORMATION: Exam: XR Right Knee Exam [...] Bones/joints: Status post total knee arthroplasty. Normal alignment.No periprosthetic fracture. Soft tissues: Soft tissues are grossly unremarkable. Notes: If there is further concern, recommend follow-up radiographs or MRI for complete assessment. IMPRESSION: No acuteosseous findings. Status post total knee arthroplasty. at 0900 Reported and signed by: Margret Avila M.D. CC: Edith Dalal MD; Wendie Pratt MD Technologist: Miguel Angel Bullock RT(R)(CT) Trnscrd Date/Time/By: 11/13/2021 (899) : By: [email or web address] Orig Print D/T: S: 11/13/2021 (902) PAGE 1 Signed Report- XR ANKLE 2 VIEWS [id number] 00:00:00[facility] [place] DEST[place]Y GARAY : 1960 Sex: F FAX: Edith Akhtar MD [phone] [place]: [place] St: [facility] FAX: Bereket Pratt Name: DESTINY GARAY FSED : 1960ge/S: 61/F [address] [facility] Unit #: [id number] Loc: [place], [place] [address] Phys: Wendie Pratt MD Acct: [id number] Dis Date: Status: REG ER PHONE #: Exam Date: 11/13/2021 0900 FAX #: Reason: fall, ankle swelling and tenderness medially EXAMS: CPT CODE: [id number] XR ANKLE 2 [place] [id number] PROCEDURE INFORMATION: Exam: XR Right Ankle Exam date and time: 11/13/2021 8:16 AM Age: 61 years old Clinical indication: Trauma, injury to the right ankle, status post fall. TECHNIQUE: Imaging elias col: Radiologic exam of the Right ankle. Views: 1 or 2 views. AP and Lateral COMPARISON: No relevantprior studies available. FINDINGS: Bones/joints: Mildly displaced, mildly angulated fracture of the distal fibula extending to just above the ankle joint. There is mild varus deformity. No other osseous abnormalities are seen involving the right ankle. No other fractures are seen. The ankle mortise isintact. The joint space is well maintained. There [...] MD Technologist: RT Freddy(R)(CT) Trnscrd Date/Time/By: 11/13/2021 (905) : By: [email or web address] Orig Print D/T: S: 11/13/2021 (905) PAGE 1 Signed ReportSCR MAMM BILATERAL ELENA CAD [id number] 07:52:28 - SCR MAMM BILATERAL ELENA CAD DIGITALBILATERAL DIGITAL SCREENING MAMMOGRAM 3D/2D WITH CAD: 04/25/2019CLINICAL: Asymptomatic. Digital breast tomosynthesis was performed in addition to routine CC and MLO views. Current mammographic images were evaluated by either a [employer] M-Vu or a [email or web address] ImageCheckerCAD (computer aided detection system). Comparison is made to exams dated 06/17/2016 mammogram, 05/28/2014 mammogram, and 08/07/2008 mammogram - [facility]. The tissue of both breasts [...] one year. Arnold Doyle M.D. et/penrad:04/27/2019 07:52:28 Machine Tracer: Asia BENEDICT RT(M), [facility] sent: BIRADS 1-2 Normal Mammogram BI-RADS: 2 Benign
--- NOTE | 2022-06-26 21:53 | RAD REPORT ---
EXAM DESCRIPTION: RAD - Chest Single View - 06/26/2022 9:42 pm CLINICAL HISTORY: Cough COMPARISON: Chest Single View dated 06/22/2022; Chest Single View dated 04/19/2022; Chest Single View d ated 03/10/2021; Chest Single View dated 03/06/2021; Abdomen Pelvis Wo Contrast dated 03/25/2021 FINDINGS: Lines: Pacemaker. Lungs: Retrocardiac opacities which are present on prior chest radiograph as well. Pleural: No significant pleural effusions or pneumothorax. Cardiac: The heart size is within normal limits. Mediastinum: Within normal limits. Bones: No acute fractures. Other: None IMPRESSION: Mild retrocardiac opacities which has been seen on prior exams and may be chronic howeve r difficult to entirely exclude an acute process as well.
[2022-06-26] MEDS ORDERED: LEVALBUTEROL 1.25 MG/3 ML NEB ONE (22:12)
[2022-06-26] MEDS ORDERED: METHYLPREDNISOLONE 125 MG INJ ONE (22:12)
[2022-06-26 22:51] LABS: Absolute Lymphocytes (CBC) 2.8 K/uL (0.7-4.9); Hematocrit 32.7 % (36.0-45.0); MCV 93.6 fL (80-100); MPV 7.2 fL (7.6-11.3); RBC Red Blood Cell Count 3.49 M/uL (3.86-4.86)
[2022-06-26 23:11] LABS: Potassium 3.9 mmol/L (3.5-5.1)
[2022-06-26 23:44] LABS: SARS-COV-2 RT PCR NEGATIVE (NEGATIVE)
[2022-06-27] MEDS ORDERED: LEVALBUTEROL 1.25 MG/3 ML NEB ONE (01:33)
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
[2022-06-27 02:09] VITALS: TEMP 98.2
[2022-06-27 02:14] VITALS: BP 139/79; O2SAT 100
--- NOTE | 2022-06-28 16:06 | RAD REPORT ---
EXAM DESCRIPTION: CT - Thorax W/ Con - 06/27/2022 7:01 am CLINICAL HISTORY: Cough TECHNIQUE: Axial computed tomography images of the chest with intravenous contrast. Sagittal and c oronal reformatted images were created and reviewed. This CT exam was performed using one or more o f the following dose reduction techniques: automated exposure control, adjustment of the mA and/or kV according to patient size, and/or use of iterative reconstruction technique. COMPARISON: CTA chest abdomen pelvis dated 03/27/2020 FINDINGS: Lungs: Medial bibasilar pleural parenchymal scar and bronchiectasis, left greater than r ight similar to the prior. No focal infiltrate. Pleural space: Stable pleural thickening on the left. No pneumothorax. No significant effusion. Heart: The heart is not enlarged. Coronary artery and mitral annular calcification. No signific ant pericardial effusion. Mediastinum: The esophagus is patulous and fluid-filled. Small hiatal hernia. Bones/joints: Multilevel spondylosis. No acute fracture. No dislocation. Soft tissues: Postsurgical changes of the soft tissues at the left posterior paraspinal mid to lowe r chest and upper abdomen with paucity of the subcutaneous soft tissues and surgical sarmad. Vasculature: Minimal atherosclerotic disease. 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 Lymph nodes: Unremarkable. No enlarged lymph nodes. Gallbladder and bile ducts: Prior cholecystectomy. Kidneys and ureters: The left kidney is atrophic. Areas of cortical thinning/scar bilaterally. Small bilateral renal hypodensities which are too small to characterize. There is a soft tissue den sity exophytic lesion at the lateral mid to lower pole measuring 1.2 cm (previously 0.6 cm). Tubes, lines and devices: Left chest wall dual-lead pacer. IMPRESSION: 1. No focal infiltrate. 2. Patulous fluid-filled esophagus. Small hiatal hernia. 3. Indeterminant 1.2 cm left renal lesion which has increased in size. This may reflect a protein aceous or hemorrhagic cyst. Solid mass/malignancy is not excluded. 4. Other findings as above. Electronically signed by: Hortencia Herrera MD 06/27/2022 12:52 AM FELT CUTTER Due to temporary technical issues with the PACS/Fluency reporting system, reports are being signed by the in house radiologists without review as a courtesy to insure prompt reporting. The interpreting radiologist is fully responsible for the content of the report.
== END 2022-06-27 01:58 | disposition home or self-care (01) ==
LOC: ER 21:23
DX: B34.9 Viral infection, unspecified (principal); J45.901 Unspecified asthma with (acute) exacerbation; I10 Essential (primary) hypertension; Z20.822 Contact with and (suspected) exposure to COVID-19; Z88.2 Allergy status to sulfonamides; Z91.013 Allergy to seafood
CPT/HCPCS: 85025; 80048; 36415; 0240U; 71260; 71045; 96374; 99284; Q9967; J7614 ×2; J2930

== ENCOUNTER 2022-12-24 19:25 | Inpatient (IN) | payer OTHER ==
--- OUTSIDE RECORDS SUMMARY | 2022-12-24 19:32 | XMS REPORT | Continuity of Care Document ---
:1960 Author Organization [facility] t Address [address] [place] [address] Care Team Providers Name Role Phone Laurel Burris MD Primary Care Physician [phone] MAT HINTON Attending Clinician Unavailable [id number] Attending Clinician Unavailable АЛЕКСАНДР HOWELL Attending Clinician Unavailable Doctor Unassigned, [place] Attending Clinician Unavailable VINCENT RADER Attending Clinician Unavailable Vincent Rader MD Attending Clinician [phone] Benitez Berger MD Attending Clinician Glenny Jose [...] Clinician VERONICA PENDLETON Attending Clinician Unavailable Alexsander CASINO CASHIERVeronica Mcmahan Attending Clinician RADHA VELÁZQUEZ Attending Clinician Unavailable Radha Linares Attending Clinician Davar_P Attending Clinician Unavailable Aldo Bustos MD Attending Clinician ALDO BUSTOS Attending Clinician Unavailable Brent Attending Clinician Unavailable Gonzalez_C Attending Clinician Unavailable MAT HINTON Admitting Clinician Unavailable [id number] Admitting Clinician Unavailable VINCENT RADER Admitting Clinician Unavailable BENITEZ BERGER Admitting Clinician Unavailable Benitez Berger MD Admitting Clinician Edith Dalal Admitting Clinician Unavailable KANDY SANCHEZ Admitting Clinician Unavailable Kandy Sanchez DO Admitting Clinician RADHA VELÁZQUEZ Admitting Clinician Unavailable Davar_P Admitting Clinician Unavailable Brent Admitting Clinician Unavailable Gonzalez_C Admitting Clinician Unavailable Payers Payer Name Policy Type Policy Number Effective Date Expiration Date S ource SELF-PAY CI [id number] [employer] [id number] 2015 HMO 00:00:00 HLSM HLSM [id number] [employer] [id number] 2019 (MEDICARE 00:00:00 REPLACEMENT/ADVANT AGE - HMO) [employer] [id number] Common Medicare Replace [facility] C1 [id number] Common Medicare [facility] [id number] Common [facility] [id number] Common Medicare [facility] [id number] Common Medicare Replace [facility] [id number] Common Medicare [facility] [id number] Common Medicare Replace [facility] Problems Condition Condition Condition Status Onset Resolution Last Treating Co mments Source Name Details Category Date Date Treatment Clinician Date Closed Closed Disease Active Univers right right 7-19 ity of ankle ankle 00:00: [place] fracture fracture 00 Medica l Branch Sore Sore Disease Active Univers throat throat 6-14 ity of 00:00: [place] 00 Medical [place] Cough Cough Disease Active Univers 6-13 ity of 00:00: [place] [facility] Branch Chronic Chronic Disease Active Univers combined combined 6-13 ity of systolic systolic 00:00: [place] and and 00 Medical diastolic 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 failure failure Pacemaker Pacemaker Disease Active Uni vers 6-13 ity of 00:00: [facility] Branch Type 2 Type 2 Disease Active Univers diabetes diabetes 6-13 ity of mellitus mellitus 00:00: [place] without without 00 Medical complicati complicati Br anch on, on, without without long-term long-term current current use of use of insulin insulin Hypokalemi Hypokalemi Disease Active U nivers a a 6-13 ity of 00:00: [place] [facility] Hyponatrem Hyponatrem Disease Active U nivers ia ia 6-13 ity of 00:00: [place] [facility] Elevated Elevated Disease Active Unive rs troponin troponin 6-12 ity of 00:00: [place] [facility] Elevated Elevated Disease Active Unive rs troponin troponin 6-12 ity of 00:00: [place] [facility] Obesity Obesity Disease Active 2020-05 Univers (BMI (BMI 2-22 ity of 30-39.9) 30-39.9) 00:00: [place] [facility] Primary Primary Disease Active 2020-05 Overview: Univ ers osteoarthr osteoarthr 2-16 Formattin ity of itis of itis of 00:00: g of this [place] right knee right knee 00 note Me dical might be Branch different from the original. Added automatic ally from request for surgery [id number] Monitoring Monitoring Problem Active V illage of of 07-16 Family pacemaker Pacemaker 00:00: Prac tic 00 e Chronic Chronic Disease Recur[facility] systolic systolic nce 3-29 [facility] CHF CHF 00:00: Medical (congestiv (congestiv 00 Ce nter e heart e heart failure) failure) Insulin Insulin Disease Recurre [facility] dependent dependent nce 3-29 [facility] diabetes diabetes 00:00: Medica l mellitus mellitus 00 Center Hypertensi Hypertensi Disease [facility]re [facility] on on nce [facility] 00:00: Medical 00 Center Mild Mild Disease Recurre [facility] intermitte intermitte nce 3-29 Pamela kes nt asthma nt asthma 00:00: Medi nella without without 00 Center complicati complicati on on Rheumatoid Rheumatoid Disease [facility]urre [facility] arthritis arthritis nce 3-29 [facility] s 00:00: Medical 00 Center CAD CAD Disease Recurre Overview: [facility] (coronary (coronary nce 3-29 Formattin L ukes artery artery 00:00: g of this Medical disease) disease) 00 note Center might be different from the original. 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 In back s/p Thoracic Radiation Therapy Pericardia Pericardia Disease Active C [facility] l effusion l effusion 3-14 Pamela kes 00:00: Medical 00 Center Hyperglyce Hyperglyce Disease Active U shiraers lisset lisset 3-27 ity of 00:00: [place] 00 Medical Branch [id number] Arthritis Problem Active Co mmon [id number] of knee, [facility] right - [facility] Allergies, Adverse Reactions, Alerts Allergy Allergy Status Severity Reaction(s) Onset Inactive Treating Comm ents Source Name Type Date Date Clinician No Known DA Active U [facility] Allergie 6-30 Clear s 00:00: [place] 00 [facility] Sulfa Drug Active Other - See Unive rs (Sulfona Allergy comments 5-10 ity o f mide 00:00: [place] Antibiot 00 Medical ics) Branch SULFA Drug Active Other-Cmnt Univer s (SULFONA Class 5-10 ity of MIDE 00:00: [place] ANTIBIOT 00 Medical ICS) Branch NO KNOWN Allergy Active [facility] Family History Family Member Diagnosis Comments Start Date Stop Date Source Natural father Hypertension [facility] Natural father Alcohol abuse [facility] Natural father Heart disease [facility] Natural mother Early [facility] Natural sister Hypertension [facility] Natural brother Hypertension [facility] Natural brother Stroke [facility] Social History Social Habit Start Date Stop Date Quantity Comments Source History of [facility] - Tobacco Use [facility] Exposure to 2022-03-29 2022-04-08 Not sure University of SARS-CoV-2 00:00:00 20:45:00 [facility] (event) [place] Tobacco use and 2021-11-24 2021-11-24 Smokeless tobacco Un iversity of exposure 00:00:00 00:00:00 non-user [facility] Alcohol intake 2015-08-13 2015-08-13 Current [facility] es 00:00:00 00:00:00 non-drinker of [facility] nter alcohol (finding) Sex Assigned At [birth year] [facility] 00:00:00 00:00:00 [facility] Smoking Status Start Date Stop Date Source Never Smoker [facility] Medications Ordered Filled Start Stop Current Ordering Indication Dosage Frequency Signature Comments Components Source Medication Medication Date Date Medication? Clinician (SIG) Name Name traMADoL 2021-05 50mg 50 mg, Univer s (ULTRAM) 124 11-24 Oral, ONCE ity of tablet 50 04:30: 03:48 NOW, 1 [place] mg 00 :00 dose, On Medical Wed Branch 04/08/22 at 2230, Routine acetaminoph 2-0 Yes 4647 2{tbl} Take 2 Un irma en-codeine 8-10 tablets by ity of (TYLENOL-CO 00:00: mouth [place] DEINE #3) 00 every 6 Medical 300-30 mg (six) Branch tablet hours as needed for Pain (scale 4-6) or Pain (scale 7-10). Indication s: acute pain acetaminoph 2-0 Yes 4647 2{tbl} Take 2 Un irma en-codeine 8-10 tablets by ity of (TYLENOL-CO 00:00: mouth [place] DEINE #3) 00 every 6 Medical 300-30 mg (six) Branch tablet hours as needed for Pain (scale 4-6) or Pain (scale 7-10). Indication s: acute pain acetaminoph 2-0 Yes 4647 2{tbl} Take 2 Un irma en-codeine 8-10 tablets by ity of (TYLENOL-CO 00:00: mouth [place] DEINE #3) 00 every 6 Medical 300-30 mg (six) Branch tablet hours as needed for Pain (scale 4-6) or Pain (scale 7-10). Indication s: acute pain acetaminoph 2-0 Yes 4647 2{tbl} Take 2 Un irma [...] (scale 7-10). Indication s: acute pain ferrous 2021-0 Yes 325mg Take 325 Unive rs sulfate 325 7-25 mg by ity of mg (65 mg 16:03: mouth [place] iron) 50 daily. Medical tablet Branch diazePAM 5 2021-0 Yes 5mg Take 5 mg Un irma mg tablet 7-25 by mouth 2 ity of 16:03: (two) [place] 50 times Medical daily as Branch needed. DULoxetine 2021-0 Yes 1{capsu Take 1 Un irma 60 mg CDRS 7-25 le} capsule by ity of 16:03: mouth [place] 50 daily. Medical Branch amitriptyli 2022-0 Yes 50mg Take 50 mg Univers ne 50 mg 7-25 by mouth ity of tablet 16:03: at [place] [address] bedtime. Medical Branch bumetanide Yes 1mg Take 1 mg Un irma 1 mg tablet 7-25 by mouth ity of 16:03: in the [place] [address] morning. Medical Branch ARIPiprazol Yes 2mg Take 2 mg U nivers e 2 mg 7-25 by mouth ity of tablet 16:03: daily. [place] [address] Medical Branch insulin NPH Yes 2U inject [...] mouth ity of delayed-rel 16:03: in the [place] [address] morning. Medical suspension Branch carvediloL Yes 3.125mg Take 3.125 Univers 3.125 mg 7-25 mg by ity of tablet 16:03: mouth in [place] [address] the Medical morning Branch and 3.125 mg in the evening. Take with meals. docusate Yes 100mg Take 100 Univ ers (COLACE) 7-25 mg by ity of 100 mg 16:03: mouth in [place] [address] the Medical morning. Branch allopurinoL Yes 100mg Take 100 U nivers 100 mg 7-25 mg by ity of tablet 16:03: mouth in [place] [address] the Medical morning. Branch cholecalcif Yes 1000U [...] mouth ity of 3350 16:03: in the [place] (MIRALAX) 50 morning. Medica l 17 Branch [...] by mouth ity of tablet 16:03: at [place] [address] bedtime. Medical Branch bumetanide Yes 1mg Take [...] mouth ity of delayed-rel 16:03: in the [facility] s ease 50 morning. Medical suspension [...] mouth ity of 3350 16:03: in the [place] (MIRALAX) 50 morning. Medica l 17 Branch [...] by mouth ity of tablet 16:03: at [place] [address] bedtime. Medical Branch bumetanide Yes 1mg Take 1 mg Un irma 1 mg tablet 7-25 by mouth ity of 16:03: in the [place] 50 morning. Medical Branch ARIPiprazol Yes 2mg Take 2 mg U nivers e 2 mg 7-25 by mouth ity of tablet 16:03: daily. [place] [address] Medical Branch insulin NPH Yes 2U inject [...] mouth ity of delayed-rel 16:03: [facility] morning. Medical suspension [...] by mouth ity of tablet 16:03: at [place] [address] bedtime. Medical Branch bumetanide Yes 1mg Take 1 mg Un irma 1 mg tablet 7-25 by mouth ity of 16:03: in the [place] [address] morning. Medical Branch ARIPiprazol Yes 2mg Take 2 mg U nivers e 2 mg 7-25 by mouth ity of tablet 16:03: daily. [place] [address] Medical Branch insulin NPH Yes 2U inject [...] mouth ity of delayed-rel 16:03: in the [facility] 50 morning. Medical suspension Branch carvediloL Yes 3.125mg Take 3.125 Univers 3.125 mg 7-25 mg by ity of tablet 16:03: mouth in [place] [address] the Medical morning Branch and 3.125 mg in the evening. Take with meals. docusate Yes 100mg Take 100 Univ ers (COLACE) 7-25 mg by ity of 100 mg 16:03: mouth in [place] capsule 50 the Medical morning. Branch allopurinoL Yes 100mg Take 100 U nivers 100 mg 7-25 mg by ity of tablet 16:03: mouth in [place] [address] the Medical morning. Branch cholecalcif Yes 1000U [...] mouth ity of 3350 16:03: in the [place] (MIRALAX) 50 morning. Medica l 17 Branch [...] by mouth ity of tablet 16:03: at [place] [address] bedtime. Medical Branch bumetanide Yes 1mg Take 1 mg Un irma 1 mg tablet 7-25 by mouth ity of 16:03: in the [place] 50 morning. Medical Branch ARIPiprazol Yes 2mg Take 2 mg U nivers e 2 mg 7-25 by mouth ity of tablet 16:03: daily. [place] [address] Medical Branch insulin NPH Yes 2U inject [...] mouth ity of delayed-rel 16:03: in the [facility] s ease 50 morning. Medical suspension [...] mouth ity of 3350 16:03: in the [place] (MIRALAX) 50 morning. Medica l 17 Branch [...] by mouth ity of tablet 16:03: at [place] [address] bedtime. Medical Branch bumetanide Yes 1mg Take 1 mg Un irma 1 mg tablet 7-25 by mouth ity of 16:03: in the [place] 50 morning. Medical Branch ARIPiprazol Yes 2mg Take 2 mg U nivers e 2 mg 7-25 by mouth ity of tablet 16:03: daily. [place] [address] Medical Branch insulin NPH Yes 2U inject [...] by mouth ity of 16:03: in the [place] [address] morning. Medical Branch ARIPiprazol Yes 2mg Take 2 mg U nivers e 2 mg 7-25 by mouth ity of tablet 16:03: daily. [place] [address] Medical Branch insulin NPH 0 Yes 2U inject 2 Un irma 100 [...] mouth ity of delayed-rel 16:03: in the [facility] 50 morning. Medical suspension Branch carvediloL Yes 3.125mg Take 3.125 Univers 3.125 mg 7-25 mg by ity of tablet 16:03: mouth in [place] [address] the Medical morning Branch and 3.125 mg in the evening. Take with meals. docusate Yes 100mg Take 100 Univ ers (COLACE) 7-25 mg by ity of 100 mg 16:03: mouth in [place] [address] the Medical morning. Branch allopurinoL Yes 100mg Take 100 U nivers 100 mg 7-25 mg by ity of tablet 16:03: mouth in [place] [address] the Medical morning. Branch cholecalcif Yes 1000U [...] mouth ity of 3350 16:03: in the [place] (MIRALAX) 50 morning. Medica l 17 Branch [...] by mouth ity of tablet 16:03: at [place] [address] bedtime. Medical Branch bumetanide Yes 1mg Take 1 mg Un irma 1 mg tablet 7-25 by mouth ity of 16:03: in the [place] 50 morning. Medical Branch ARIPiprazol Yes 2mg Take 2 mg U nivers e 2 mg 7-25 by mouth ity of tablet 16:03: daily. [place] [address] Medical Branch insulin NPH Yes 2U inject [...] mouth ity of delayed-rel 16:03: in the [facility] s ease 50 morning. Medical suspension Branch carvediloL Yes 3.125mg Take 3.125 Univers 3.125 mg 7-25 mg by ity of tablet 16:03: mouth in [place] 50 the Medical morning Branch and 3.125 mg in the evening. Take with meals. docusate Yes 100mg Take 100 Univ ers (COLACE) 7-25 mg by ity of 100 mg 16:03: mouth in [place] capsule 50 the Medical morning. Branch allopurinoL Yes 100mg Take 100 U nivers 100 mg 7-25 mg by ity of tablet 16:03: mouth in [place] 50 the Medical morning. Branch cholecalcif Yes [...] mouth ity of 3350 16:03: in the [place] (MIRALAX) 50 morning. Medica l 17 Branch [...] by mouth ity of tablet 16:03: at [place] [address] bedtime. Medical Branch bumetanide Yes 1mg Take 1 mg Un irma 1 mg tablet 7-25 by mouth ity of 16:03: in the [place] [address] morning. Medical Branch ARIPiprazol Yes 2mg Take 2 mg U nivers e 2 mg 7-25 by mouth ity of tablet 16:03: daily. [place] [address] Medical Branch insulin NPH Yes 2U inject [...] mouth ity of delayed-rel 16:03: [facility] morning. Medical suspension [...] by mouth ity of 16:03: in the [place] [address] morning. Medical Branch ARIPiprazol Yes 2mg Take 2 mg U nivers e 2 mg 7-25 by mouth ity of tablet 16:03: daily. [place] [address] Medical Branch insulin NPH Yes 2U inject [...] mouth ity of delayed-rel 16:03: in the [facility] 50 morning. Medical suspension Branch carvediloL Yes 3.125mg Take 3.125 Univers 3.125 mg 7-25 mg by ity of tablet 16:03: mouth in [place] [address] the Medical morning Branch and 3.125 mg in the evening. Take with meals. docusate Yes 100mg Take 100 Univ ers (COLACE) 7-25 mg by ity of 100 mg 16:03: mouth in [place] capsule 50 the Medical morning. Branch allopurinoL Yes 100mg Take 100 U nivers 100 mg 7-25 mg by ity of tablet 16:03: mouth in [place] 50 the Medical morning. Branch cholecalcif Yes 1000U Take 1,000 Univers nneka, 7-25 Units by ity of vitamin D3, 16:03: mouth in [place] (VITAMIN 50 the [facility] D3) 25 mcg morning. Branc h (1,000 [...] mouth ity of 3350 16:03: in the [place] (MIRALAX) 50 morning. Medica l 17 Branch gram/dose powder benzocaine- Yes [id number] 1{lozen Take 1 Univers menthoL 6-15 ge} Lozenge by ity of lozenge 00:00: mouth [place] 00 every 4 Medical (four) Branch hours as needed for Sore throat. magnesium Yes [id number] 400mg Take 1 U nivers oxide 400 6-15 capsule by ity of mg 00:00: mouth [place] magnesium 00 daily. Medical capsule Branch benzocaine- Yes [id number] 1{lozen Take 1 Univers menthoL 6-15 ge} Lozenge by ity of lozenge 00:00: mouth [place] 00 every 4 Medical (four) Branch hours as needed for Sore throat. magnesium Yes [id number] 400mg Take 1 U nivers oxide 400 6-15 capsule by ity of mg 00:00: mouth [place] magnesium 00 daily. Medical capsule Branch benzocaine- Yes [id number] 1{lozen Take 1 Univers menthoL 6-15 ge} Lozenge by ity of lozenge 00:00: mouth [place] 00 every 4 Medical (four) Branch hours as needed for Sore throat. magnesium 0 Yes [id number] 400mg Take 1 U nivers oxide 400 6-15 capsule by ity of mg 00:00: mouth [place] magnesium 00 daily. Medical capsule Branch benzocaine- Yes [id number] 1{lozen Take 1 Univers menthoL 6-15 ge} Lozenge by ity of lozenge 00:00: mouth [place] 00 every 4 Medical (four) Branch hours as needed for Sore throat. magnesium 2021-0 Yes [id number] 400mg Take 1 U nivers oxide 400 6-15 capsule by ity of mg 00:00: mouth [place] magnesium 00 daily. Medical capsule Branch benzocaine- 0 Yes [id number] 1{lozen Take 1 Univers menthoL 6-15 ge} Lozenge by ity of lozenge 00:00: mouth [place] 00 every 4 Medical (four) Branch hours as needed for Sore throat. magnesium 2021-0 Yes [id number] 400mg Take 1 U nivers oxide 400 6-15 capsule by ity of mg 00:00: mouth [place] magnesium 00 daily. Medical capsule Branch benzocaine- 0 Yes [id number] 1{lozen Take 1 Univers menthoL 6-15 ge} Lozenge by ity of lozenge 00:00: mouth [place] 00 every 4 Medical (four) Branch hours as needed for Sore throat. magnesium 2021-0 Yes [id number] 400mg Take 1 U nivers oxide 400 6-15 capsule by ity of mg 00:00: mouth [place] magnesium 00 daily. Medical capsule Branch benzocaine- Yes [id number] 1{lozen Take 1 Univers menthoL 6-15 ge} Lozenge by ity of lozenge 00:00: mouth [place] 00 every 4 Medical (four) Branch hours as needed for Sore throat. magnesium 2021-0 Yes [id number] 400mg Take 1 U nivers oxide 400 6-15 capsule by ity of mg 00:00: mouth [place] magnesium 00 daily. Medical capsule Branch benzocaine- 0 Yes [id number] 1{lozen Take 1 Univers menthoL 6-15 ge} Lozenge by ity of lozenge 00:00: mouth [place] 00 every 4 Medical (four) Branch hours as needed for Sore throat. magnesium 2021-0 Yes [id number] 400mg Take 1 U nivers oxide 400 6-15 capsule by ity of mg 00:00: mouth [place] magnesium 00 daily. Medical capsule Branch benzocaine- 0 Yes [id number] 1{lozen Take 1 Univers menthoL 6-15 ge} Lozenge by ity of lozenge 00:00: mouth [place] 00 every 4 Medical (four) Branch hours as needed for Sore throat. magnesium Yes [id number] 400mg Take 1 U nivers oxide 400 6-15 capsule by ity of mg 00:00: mouth [place] magnesium 00 daily. Medical capsule Branch benzocaine- Yes [id number] 1{lozen Take 1 Univers menthoL 6-15 ge} Lozenge by ity of lozenge 00:00: mouth [place] 00 every 4 Medical (four) Branch hours as needed for Sore throat. magnesium Yes [id number] 400mg Take 1 U nivers oxide 400 6-15 capsule by ity of mg 00:00: mouth [place] magnesium 00 daily. Medical capsule Branch aspirin 81 Yes 81mg QD Take [address] MG EC 3-29 by mouth [facility] tablet 15:36: daily. Medical 54 Center metFORMIN Yes 1000mg Take 1,[address] [facility] [...] l tablet 54 daily with Center breakfast. cyclobenzap Yes 10mg Take [address] [facility] rine 3-29 by mouth 2 [facility] (FLEXERIL) 15:36: (two) Medica l 10 MG 54 times Center tablet daily as needed for Muscle spasms. cyanocobala Yes 1000ug QD Take 1,[address] min 1000 3-29 mcg by [facility]ukes MCG tablet 15:36: mouth Medica l 54 daily. Center aspirin 81 Yes 81mg QD Take [address] MG EC 3-29 by mouth [facility] tablet 15:36: daily. Medical 54 Center cyclobenzap Yes 10mg Take [address] rine 3-29 by mouth 2 [facility] (FLEXERIL) 15:36: (two) Medica l 10 MG 54 times Center tablet daily as needed for Muscle spasms. simvastatin 0 Yes 20mg QD Take [address] (ZOCOR) 20 3-29 by mouth [facility] MG tablet 15:36: nightly. [address] simvastatin 2016-0 Yes 20mg QD Take [address] (ZOCOR) 20 3-29 by mouth [facility] MG tablet 15:36: nightly. [address] metFORMIN 2016-0 Yes 1000mg Take 1,[address] (GLUCOPHAGE 3-29 mg by [facility]ukes ) 1000 MG 15:36: mouth 2 Medic al tablet 54 (two) Center times daily with breakfast and dinner. omeprazole 2016-0 Yes 20mg QD Take [address] (PRILOSEC) 3-29 by mouth [facility] 20 MG 15:36: daily. Medical capsule [address] [place] [address] ferrous 2016-0 Yes 325mg Take 325 [facility] sulfate 325 3-29 mg by [facility] (65 FE) MG 15:36: mouth Medica l tablet 54 daily with Center breakfast. cyanocobala 2016-0 Yes 1000ug QD Take 1,[address] min 1000 3-29 mcg by [facility]ukes MCG tablet 15:36: mouth Medica l 54 daily. [place] aspirin 81 2016-0 Yes 81mg QD Take [address] MG EC 3-29 by mouth [facility] tablet 15:36: daily. [address] cyclobenzap 2016-0 Yes 10mg Take [address] rine 3-29 by mouth 2 [facility] (FLEXERIL) 15:36: (two) Medica l 10 MG 54 times Center tablet daily as needed for Muscle spasms. simvastatin 2016-0 Yes 20mg QD Take [address] (ZOCOR) 20 3-29 by mouth [facility]ukes MG tablet 15:36: nightly. [address] metFORMIN 2016-0 Yes 1000mg Take 1,[address] (GLUCOPHAGE 3-29 mg by [facility]ukes ) 1000 MG 15:36: mouth 2 Medic al tablet 54 (two) Center times daily with breakfast and dinner. omeprazole 2016-0 Yes 20mg QD Take [address] (PRILOSEC) 3-29 by mouth [facility] 20 MG 15:36: daily. Medical capsule [address] [place] [address] ferrous 2016-0 Yes 325mg Take 325 [facility] sulfate 325 3-29 mg by [facility] (65 FE) MG 15:36: mouth Medica l tablet 54 daily with Center breakfast. cyanocobala 2016-0 Yes 1000ug QD Take 1,[address] min 1000 3-29 mcg by Lukes MCG tablet 15:36: mouth Medica l 54 daily. [place] aspirin 81 2016-0 Yes 81mg QD Take [address] MG EC 3-29 by mouth [facility] tablet 15:36: daily. [address] cyclobenzap 2016-0 Yes 10mg Take [address] rine 3-29 by mouth 2 [facility] (FLEXERIL) 15:36: (two) Medica l 10 MG 54 times Center tablet daily as needed for Muscle spasms. simvastatin 2016-0 Yes 20mg QD Take [address] (ZOCOR) 20 3-29 by mouth [facility]ukes MG tablet 15:36: nightly. [address] metFORMIN 2016-0 Yes 1000mg Take 1,[address] (GLUCOPHAGE 3-29 mg by [facility] ) 1000 MG 15:36: mouth 2 Medic al tablet 54 (two) Center times daily with breakfast and dinner. omeprazole 2016-0 Yes 20mg QD Take [address] (PRILOSEC) 3-29 by mouth [facility] 20 MG 15:36: daily. [address] ferrous 2016-0 Yes 325mg Take 325 [facility] sulfate 325 3-29 mg by [facility] (65 FE) MG 15:36: mouth Medica l tablet 54 daily with Center breakfast. cyanocobala 2016-0 Yes 1000ug QD Take 1,[address] min 1000 3-29 mcg by Lukes MCG tablet 15:36: mouth Medica l 54 daily. [place] aspirin 81 2016-0 Yes 81mg QD Take [address] MG EC 3-29 by mouth [facility] tablet 15:36: daily. [address] cyclobenzap 2016-0 Yes 10mg Take [address] [facility]ine 3-29 by mouth [facility] (FLEXERIL) 15:36: (two) Medica l 10 MG 54 times Center tablet daily as needed for Muscle spasms. simvastatin 2016-0 Yes 20mg QD Take [address] [facility] (ZOCOR) 20 3-29 by [facility] MG tablet 15:36: nightly. [address] metFORMIN 2016-0 Yes 1000mg Take 1,[address] [facility] (GLUCOPHAGE 3-29 mg by [facility] ) 1000 MG 15:36: mouth 2 Medic al tablet 54 (two) Center times daily with breakfast and dinner. omeprazole 2016-0 Yes 20mg QD Take [address] (PRILOSEC) 3-29 by [facility] 20 MG 15:36: daily. Medical capsule 54 [place] ferrous 2016-0 Yes 325mg Take 325 [facility] sulfate 325 3-29 [facility] (65 FE) MG 15:36: mouth Medica l tablet 54 daily with Center breakfast. cyanocobala 2016-0 Yes 1000ug QD Take 1,[address] [facility] min 1000 3-29 mcg by [facility] MCG tablet 15:36: mouth Medica l 54 daily. [place] aspirin 81 2016-0 Yes 81mg QD Take [address] MG EC 3-29 by mouth [facility] tablet 15:36: daily. [address] cyclobenzap 2016-0 Yes 10mg Take [address] [facility] rine 3-29 by mouth 2 [facility] (FLEXERIL) 15:36: (two) Medica l 10 MG 54 times Center tablet daily as needed for Muscle spasms. simvastatin 2016-0 Yes 20mg QD Take [address] [facility] (ZOCOR) 20 3-29 by mouth [facility] MG tablet 15:36: nightly. [address] metFORMIN 2016-0 Yes 1000mg Take 1,[address] [facility] [address] (GLUCOPHAGE 3-29 mg by [facility] ) 1000 MG 15:36: mouth 2 Medic al tablet 54 (two) Center times daily with breakfast and dinner. omeprazole 2016-0 Yes 20mg QD Take [address] (PRILOSEC) 3-29 by [facility] 20 MG 15:36: daily. Medical capsule 54 [place] ferrous 2016-0 Yes 325mg Take 325 [facility] sulfate 325 3-29 [facility] (65 FE) MG 15:36: mouth Medica l tablet 54 daily with Center breakfast. cyanocobala 2016-0 Yes 1000ug QD Take 1,[address] [facility] min 1000 3-29 mcg by [facility] MCG tablet 15:36: mouth Medica l 54 daily. [place] aspirin 81 2016-0 Yes 81mg QD Take [address] MG EC 3-29 by mouth [facility] tablet 15:36: daily. [address] cyclobenzap 2016-0 Yes 10mg Take [address] [facility] rine 3-29 by mouth 2 [facility] (FLEXERIL) 15:36: (two) Medica l 10 MG 54 times Center tablet daily as needed for Muscle spasms. simvastatin 2016-0 Yes 20mg QD Take [address] [facility] (ZOCOR) 20 3-29 by mouth [facility] MG tablet 15:36: nightly. Medi nella 54 Center metFORMIN 0 Yes 1000mg Take 1,[address] [facility] [address] (GLUCOPHAGE 3-29 mg [facility] ) 1000 MG 15:36: mouth 2 Medic al tablet 54 (two) Center times daily with breakfast and dinner. omeprazole 2016 Yes 20mg QD Take 20 mg C [...] 15:36: mouth Medica l 54 daily. Center insulin Yes To use 30 [facility] [...] Dispense Medical Insulin Pen 00 as Center [place] 4 written, mm x 32 G do [...] Dispense Medical Insulin Pen 00 as Center [place] 4 written, mm x 32 G do [...] Dispense Medical Insulin Pen 00 as Center [place] 4 written, mm x 32 G do [...] Dispense Medical Insulin Pen 00 as Center [place] 4 written, mm x 32 G do [...] Dispense Medical Insulin Pen 00 as Center [place] 4 written, mm x 32 G do [...] Dispense Medical Insulin Pen 00 as Center [place] 4 written, mm x 32 G do [...] Dispense Medical Insulin Pen 00 as Center [place] 4 written, mm x 32 G do [...] mouth every 4-6 hours as needed. Insulin Yes [id number] Use as Univ ers [place], 5-11 directed ity of Disposable, 00:00: daily [place] (BD 00 Medical ULTRAFINE Branch III MINI PEN) 31 x 3/16 " Ndle Insulin Yes [id number] Use as Univ ers [place], 5-11 directed ity of Disposable, 00:00: daily [place] (BD 00 Medical ULTRAFINE Branch III MINI PEN) 31 x 3/16 " Ndle Insulin Yes [id number] Use as Univ ers [place], 5-11 directed ity of Disposable, 00:00: daily [place] (BD 00 Medical ULTRAFINE Branch III MINI PEN) 31 x 3/16 " Ndle Insulin Yes [id number] Use as Univ ers [place], 5-11 directed ity of Disposable, 00:00: daily [place] (BD 00 Medical ULTRAFINE Branch III MINI PEN) 31 x 3/16 " Ndle Insulin Yes [id number] Use as Univ ers [place], 5-11 directed ity of Disposable, 00:00: daily [place] (BD 00 Medical ULTRAFINE Branch III MINI PEN) 31 x 3/16 " Ndle Insulin 2014-0 Yes [id number] Use as Univ ers [place], 5-11 directed ity of Disposable, 00:00: daily [place] (BD 00 Medical ULTRAFINE Branch III MINI PEN) 31 x 3/16 " Ndle Insulin 2014-0 Yes [id number] Use as Univ ers [place], 5-11 directed ity of Disposable, 00:00: daily [place] (BD 00 Medical ULTRAFINE Branch III MINI PEN) 31 x 3/16 " Ndle Insulin 0 Yes [id number] Use as Univ ers [place], 5-11 directed ity of Disposable, 00:00: daily [place] (BD 00 Medical ULTRAFINE Branch III MINI PEN) 31 x 3/16 " Ndle Insulin 2014-0 Yes [id number] Use as Univ ers [place], 5-11 directed ity of Disposable, 00:00: daily [place] (BD 00 Medical ULTRAFINE Branch III MINI PEN) 31 x 3/16 " Ndle Insulin 2014-0 Yes [id number] Use as Univ ers [place], 5-11 directed ity of Disposable, 00:00: daily [place] (BD 00 Medical ULTRAFINE Branch III MINI PEN) 31 x 3/16 " [place] aspirin 81 0 Yes 81mg Take 1 Tab U nivers mg chewable 3-29 by mouth ity of tablet 00:00: daily. [place] [facility] vitamin 2015-0 Yes 1000ug Take 1 Tab Un irma B-12 3-29 by mouth ity of (CYANOCOBAL 00:[place]: [place]. [place] [facility] 1,000 Medical mcg tablet Branch aspirin 81 0 Yes 81mg Take 1 Tab U nivers mg chewable 3-29 by mouth ity of tablet 00:00: daily. [place] [facility] vitamin 2015-0 Yes 1000ug Take 1 Tab Un irma B-12 3-29 by mouth ity [facility] (CYANOCOBAL 00:00: [place]. [place] [facility] 1,000 00 Medical mcg tablet Branch aspirin 81 2014-0 Yes 81mg Take 1 Tab U nivers mg chewable 3-29 by mouth ity of tablet 00:00: daily. [place] [facility] vitamin 2015-0 Yes 1000ug Take 1 Tab Un irma B-12 3-29 by mouth ity of (CYANOCOBAL 00:00: [place]. [place] [facility] ,000 Medical mcg tablet Branch aspirin 81 2014-0 Yes 81mg Take 1 Tab U nivers mg chewable 3-29 by mouth ity of tablet 00:00: daily. Medical Branch vitamin 2015-0 Yes 1000ug Take 1 Tab Un irma B-12 3-29 by mouth ity of (CYANOCOBAL 00:00: [place]. [place] [facility] 000 Medical mcg tablet Branch aspirin 81 0 Yes 81mg Take 1 Tab U nivers mg chewable 3-29 by mouth ity of tablet 00:00: daily. Medical Branch vitamin 2015-0 Yes 1000ug Take 1 Tab Un irma B-12 3-29 by mouth ity of (CYANOCOBAL 00:00: [place]. [place] [facility] 000 Medical mcg tablet Branch aspirin 81 0 Yes 81mg Take 1 Tab U nivers mg chewable 3-29 by mouth ity of tablet 00:00: daily. [place] [facility] vitamin 2015-0 Yes 1000ug Take 1 Tab Un irma B-12 3-29 by mouth ity of (CYANOCOBAL 00:00: [place]. [place] [facility] Medical mcg tablet Branch aspirin 81 0 Yes 81mg Take 1 Tab U nivers mg chewable 3-29 by mouth ity of tablet 00:00: daily. Medical Branch vitamin 2015-0 Yes 1000ug Take 1 Tab Un imra B-12 3-29 by mouth ity of (CYANOCOBAL 00:00: [place]. [place] [facility] Medical mcg tablet Branch aspirin 81 0 Yes 81mg Take 1 Tab U nivers mg chewable 3-29 by mouth ity of tablet 00:00: daily. Medical Branch vitamin 2015-0 Yes 1000ug Take 1 Tab Un irma B-12 3-29 by mouth ity of (CYANOCOBAL 00:00: [place]. [place] [facility] ,000 Medical mcg tablet Branch aspirin 81 2014-0 Yes 81mg Take 1 Tab U nivers mg chewable 3-29 by mouth ity of tablet 00:00: daily. Medical Branch vitamin 2015-0 Yes 1000ug Take 1 Tab Un irma B-12 3-29 by mouth ity of (CYANOCOBAL 00:00: [place]. [place] [facility] 1,000 00 Medical mcg tablet Branch aspirin 81 Yes 81mg Take 1 Tab U nivers mg chewable 3-29 by mouth ity of tablet 00:00: daily. Medical Branch vitamin Yes 1000ug Take 1 Tab Un irma B-12 3-29 by mouth ity of (CYANOCOBAL 00:00: [place]. [place] [facility] 1,000 00 Medical mcg tablet Branch albuterol albuterol No albuterol [place] sulfate HFA sulfate HFA sulfate Family 90 90 HFA 90 Practic mcg/actuati mcg/actuati mcg/actuat e on aerosol on aerosol ion inhaler inhaler aerosol inhaler alprazolam alprazolam No 1 alprazolam [facility] 0.25 mg 0.25 mg 0.25 mg Family tablet Take tablet Take tablet Practic 1 tablet as 1 tablet as Take 1 e needed by needed by tablet as oral route oral route needed by for 30 for 30 oral route days. days. for 30 days. amiodarone amiodarone No amiodarone [facility] 200 mg 200 mg 200 mg [...] BD Insulin BD Insulin No BD Insulin [facility] Syringe Syringe Syringe [facility] Ultra-Fine Ultra-Fine Ultra-Fine Practic 0.3 mL 31 0.3 mL 31 0.3 mL 31 e gauge x gauge x gauge x 5/16" 5/16" 5/16" bumetanide bumetanide No .5 Q1D bumetanide [facility] 2 mg tablet 2 mg tablet [...] Practic e Dulcolax Dulcolax No Dulcolax Raya nnuo (bisacodyl) (bisacodyl) (bisacodyl Family 1 cup daily 1 cup daily ) 1 cup Practic daily e folic acid folic acid No 1 Q1D folic acid [facility] 1 mg tablet 1 mg tablet 1 mg F amily Take 1 Take 1 tablet Practic tablet tablet Take 1 e every day every day tablet by oral by oral every day route. route. by oral route. lisinopril lisinopril No 1 Q1D lisinopril [facility] 5 mg tablet 5 mg tablet 5 mg F amily Take 1 Take 1 tablet Practic tablet tablet Take 1 e every day every day tablet by oral by oral every day route for route for by oral 90 days. 90 days. route for 90 days. magnesium magnesium No 1 Q1D magnesium [facility] 400 mg (as 400 mg (as 400 mg (as Family magnesium magnesium magnesium Practic oxide) oxide) oxide) e tablet Take tablet Take tablet 1 tablet 1 tablet Take 1 every day every day tablet by oral by oral every day route. route. by oral route. multivitami multivitami No multivitam [facility] n 1 po qd n 1 po qd in 1 po qd Family Practic e Novolin N Novolin N No Novolin N [facility] Flexpen Flexpen Flexpen Family Practic e omeprazole omeprazole No 1capsul Q1D omeprazole [facility] 40 mg 40 mg e(s) 40 [...] days. paroxetine paroxetine No 1 Q1D paroxetine [facility] 20 mg 20 mg 20 mg [...] e simvastatin simvastatin No 1 Q1D simvastati [facility] 20 mg 20 mg n 20 [...] HYDROcodone HYDROcodone No HYDROcodon -Acetaminop -Acetaminop e-Acetamin alfredo fuentes ophen Vitamin B Vitamin B No 1{table [...] 2021-01-21 Completed [facility] - 08:50:00 [facility] Hyalgan 20 mg Hyalgan 20 mg 2021-01-21 Completed [facility] - 08:50:00 [facility] Hyalgan 20 mg Hyalgan 20 mg 2021-01-21 Completed [facility] - 08:50:00 [facility] Hyalgan 20 mg Hyalgan 20 mg 2021-01-14 Completed [facility] - 09:17:00 [facility] Hyalgan 20 mg Hyalgan 20 mg 2021-01-14 Completed [facility] - 09:17:00 [facility] Hyalgan 20 mg Hyalgan 20 mg 2021-01-14 Completed [facility] - 09:17:00 [facility] Hyalgan 20 mg Hyalgan 20 mg 2021-01-14 Completed [facility] - 09:17:00 [facility] Bupivicaine [place] Bupivicaine [place] 2021-01-07 [facility]pleted [facility] 13:41:00 [facility] Kenalog Kenalog 2021-01-07 Completed [facility] - (Triamcinolone) (Triamcinolone) 13:41:00 [facility] Bupivicaine [place] Bupivicaine [place] 2021-01-07 Completed [facility] - 13:41:00 [facility] Kenalog Kenalog 2021-01-07 Completed [facility] (Triamcinolone) (Triamcinolone) 13:41:00 [facility] Bupivicaine [place] Bupivicaine [place] 2021-01-07 Completed [facility] - 13:41:00 [facility] Kenalog Kenalog 2021-01-07 Completed [facility] - (Triamcinolone) (Triamcinolone) 13:41:00 [facility] Bupivicaine [place] Bupivicaine [place] 2021-01-07 Completed [facility] - 13:41:00 [facility] Kenalog Kenalog 2021-01-07 Completed [facility] - (Triamcinolone) (Triamcinolone) 13:41:00 [facility] Bupivicaine [place] Bupivicaine [place] 2021-01-07 Completed [facility] - 13:41:00 [facility] Kenalog Kenalog 2021-01-07 Completed [facility] (Triamcinolone) (Triamcinolone) 13:41:00 [facility] Hyalgan 20 mg Hyalgan 20 mg 2021-01-07 Completed [facility] - 13:40:00 [facility] Hyalgan 20 mg Hyalgan 20 mg 2021-01-07 Completed [facility] - 13:40:00 [facility] Hyalgan 20 mg Hyalgan 20 mg 2021-01-07 Completed [facility] - 13:40:00 [facility] Hyalgan 20 mg Hyalgan 20 mg 2021-01-07 Completed [facility] - 13:40:00 [facility] Hyalgan 20 mg Hyalgan 20 mg 2021-01-07 Completed [facility] - 13:40:00 [facility] influenza, influenza, 2019-03-09 Completed [facility] unspecified unspecified 00:00:00 Practice formulation formulation Meningococcal 2014-08-24 Completed University of Polysaccharide 00:00:00 [place] [facility] (groups A, C, Y and Branc h W-135) conjugate vaccine (MCV4P) Heamophilus Influenza 2014-08-24 Completed Uni versity of B 00:00:00 [facility] Meningococcal 2014-08-24 Completed University of Polysaccharide 00:00:00 [place] [facility] (groups A, C, Y and Branc h W-135) conjugate vaccine (MCV4P) Heamophilus Influenza 2014-08-24 Completed Uni versity of B 00:00:00 [facility] Meningococcal 2014-08-24 Completed University of Polysaccharide 00:00:00 [place] [facility] (groups A, C, Y and Branc h W-135) conjugate vaccine (MCV4P) Heamophilus Influenza 2014-08-24 Completed Uni versity of B 00:00:00 [facility] Meningococcal 2014-08-24 Completed University of Polysaccharide 00:00:00 [place] [facility] (groups A, C, Y and Branc h W-135) conjugate vaccine (MCV4P) Heamophilus Influenza 2014-08-24 Completed Uni versity of B 00:00:00 [facility] Meningococcal 2014-08-24 Completed University of Polysaccharide 00:00:00 [place] [facility] (groups A, C, Y and Branc h W-135) conjugate vaccine (MCV4P) Heamophilus Influenza 2014-08-24 Completed Uni versity of B 00:00:00 [facility] Meningococcal 2014-08-24 Completed University of Polysaccharide 00:00:00 [place] [facility] (groups A, C, Y and Branc h W-135) conjugate vaccine (MCV4P) Heamophilus Influenza 2014-08-24 Completed Uni versity of B 00:00:00 [facility] Meningococcal 2014-08-24 Completed University of Polysaccharide 00:00:00 [facility] nella (groups A, C, Y and Branc h W-135) conjugate vaccine (MCV4P) Heamophilus Influenza 2014-08-24 Completed Uni versity of B 00:00:00 [facility] Meningococcal 2014-08-24 Completed University of Polysaccharide 00:00:00 [facility] nella (groups A, C, Y and Branc h W-135) conjugate vaccine (MCV4P) Heamophilus Influenza 2014-08-24 Completed Uni versity of B 00:00:00 [facility] Meningococcal 2014-08-24 Completed University of Polysaccharide 00:00:00 [place] [facility] (groups A, C, Y and Branc h W-135) conjugate vaccine (MCV4P) Heamophilus Influenza 2014-08-24 Completed Uni versity of B 00:00:00 [facility] Meningococcal 2014-08-24 Completed University of Polysaccharide 00:00:00 [facility] nella (groups A, C, Y and Branc h W-135) conjugate vaccine (MCV4P) Heamophilus Influenza 2014-08-24 Completed Uni versity of B 00:00:00 [facility] Influenza Virus 2014-08-12 Completed Universit y of Vaccine Quad IM 3+ 00:00:00 [facility] Pneumococcal 2014-08-12 Completed University o f Polysaccharide, 00:00:00 [place] Med ical PPSV23 (PNEUMOVAX) Branch Influenza Virus 2014-08-12 Completed Universit y of Vaccine Quad IM 3+ 00:00:00 [facility] Pneumococcal 2014-08-12 Completed University o f Polysaccharide, 00:00:00 [place] Med ical PPSV23 (PNEUMOVAX) Branch Influenza Virus 2014-08-12 Completed Universit y of Vaccine Quad IM 3+ 00:00:00 [facility] Pneumococcal 2014-08-12 Completed University o f Polysaccharide, 00:00:00 [place] Med ical PPSV23 (PNEUMOVAX) Branch Influenza Virus 2014-08-12 Completed Universit y of Vaccine Quad IM 3+ 00:00:00 [facility] Pneumococcal 2014-08-12 Completed University o f Polysaccharide, 00:00:00 [place] [facility] ical PPSV23 (PNEUMOVAX) Branch Influenza Virus 2014-08-12 Completed Universit y of Vaccine Quad IM 3+ 00:00:00 [facility] Pneumococcal 2014-08-12 Completed University o f Polysaccharide, 00:00:00 [place] [facility] ical PPSV23 (PNEUMOVAX) Branch Influenza Virus 2014-08-12 Completed Universit y of Vaccine Quad IM 3+ 00:00:00 [facility] Pneumococcal 2014-08-12 Completed University o f Polysaccharide, 00:00:00 [place] [facility] ical PPSV23 (PNEUMOVAX) Branch Influenza Virus 2014-08-12 Completed Universit y of Vaccine Quad IM 3+ 00:00:00 [facility] Pneumococcal 2014-08-12 Completed University o f Polysaccharide, 00:00:00 [place] [facility] ical PPSV23 (PNEUMOVAX) Branch Influenza Virus 2014-08-12 Completed Universit y of Vaccine Quad IM 3+ 00:00:00 [facility] Pneumococcal 2014-08-12 Completed University o f Polysaccharide, 00:00:00 [place] [facility] ical PPSV23 (PNEUMOVAX) Branch Influenza Virus 2014-08-12 Completed Universit y of Vaccine Quad IM 3+ 00:00:00 [facility] Pneumococcal 2014-08-12 Completed University o f Polysaccharide, 00:00:00 [place] [facility] ical PPSV23 (PNEUMOVAX) Branch Influenza Virus 2014-08-12 Completed Universit y of Vaccine Quad IM 3+ 00:00:00 [facility] Pneumococcal 2014-08-12 Completed University o f Polysaccharide, 00:00:00 [place] [facility] ical PPSV23 (PNEUMOVAX) [place] Vital Signs Vital Name Observation Time Observation Value Comments Source Systolic blood 2022-04-09 04:30:00 138 mm[Hg] Univer sity of pressure [facility] Diastolic blood 2022-04-09 04:30:00 97 mm[Hg] Unive rsity of pressure [facility] Heart rate 2022-04-09 04:30:00 60 /min [facility] Respiratory rate 2022-04-09 04:30:00 17 /min [facility] Oxygen saturation in 2022-04-09 04:30:00 100 /min [facility] Arterial blood by [facility] Pulse oximetry [place] Body temperature 2022-04-09 02:00:[address] [facility] Body height 2022-01-23 16:36:00 172.7 cm [facility] Body weight 2022-01-23 16:36:00 91.173 kg [facility] BMI 2022-01-23 16:36:00 30.56 kg/m2 [facility] height 2021-01-21 08:30:00 68 [in_i] [facility] weight 2021-01-21 08:30:00 226 [lb_av] [facility] temperature 2021-01-21 08:30:00 97.7 [degF] [facility] bmi 2021-01-21 08:30:00 34.36 kg/m2 [facility] blood pressure 2021-01-21 08:30:00 130 mm[Hg] [facility] systolic [facility] blood pressure 2021-01-21 08:30:00 84 mm[Hg] [facility] - diastolic [facility] height 2021-01-14 08:30:00 68 [in_i] [facility] weight 2021-01-14 08:30:00 226 [lb_av] [facility] temperature 2021-01-14 08:30:00 97.5 [degF] [facility] bmi 2021-01-14 08:30:00 34.36 kg/m2 [facility] - [facility] blood pressure 2021-01-14 08:30:00 126 mm[Hg] [facility] - systolic [facility] blood pressure 2021-01-14 08:30:00 74 mm[Hg] [facility] - diastolic [facility] height 2021-01-07 13:00:00 68 [in_i] [facility] weight 2021-01-07 13:00:00 226 [lb_av] [facility] temperature 2021-01-07 13:00:00 98.7 [degF] [facility] bmi 2021-01-07 13:00:00 34.36 kg/m2 [facility] - [facility] blood pressure 2021-01-07 13:00:00 132 mm[Hg] [facility] - systolic [facility] blood pressure 2021-01-07 13:00:00 84 mm[Hg] [facility] - diastolic [facility] height 2021-01-02 13:30:00 68 [in_i] [facility] weight 2021-01-02 13:30:00 226 [lb_av] [facility] bmi 2021-01-02 13:30:00 34.36 kg/m2 [facility] - [facility] blood pressure 2021-01-02 13:30:00 132 mm[Hg] [facility] - systolic [facility] blood pressure 2021-01-02 13:30:00 86 mm[Hg] [facility] - diastolic [facility] BP Diastolic 2019-08-07 00:00:00 76 mm[Hg] [facility] Height 2019-08-07 00:00:00 68.5 [in_i] [facility] BP Systolic 2019-08-07 00:00:00 120 mm[Hg] [facility] BP Diastolic 2019-07-17 00:00:00 70 mm[Hg] [facility] Height 2019-07-17 00:00:00 68.5 [in_i] [facility] BMI (Body Mass 2019-07-17 00:00:00 34.5 kg/m2 [facility] Gallagher Index) Practice BP Systolic 2019-07-17 00:00:00 126 mm[Hg] [facility] Body Weight 2019-07-17 00:00:00 230 [lb_av] [facility] Procedures Procedure Date / Time Performing Clinician Source Performed AUTHORIZATION FOR 2022-06-23 06:01:00 Doctor [facility]assigned, [facility] [place] XR CHEST 2 VW 2022-04-09 03:59:00 Vincent Rader [facility] TROPONIN I 2022-04-09 03:35:00 Dior [facility] COMP. METABOLIC PANEL 2022-04-09 03:35:00 Vincent Rader [facility] ([id number]) [facility] CBC WITH DIFF 2022-04-09 03:35:00 Vincent Rader [facility] RAPID INFLUENZA A/B 2022-04-09 03:35:00 [facility] 2022-04-09 03:35:00 Vincent Rader [facility] NOTICE OF PRIVACY 2022-04-09 02:38:07 Doctor Unassigned, No [facility] CONSENT/REFUSAL FOR 2022-04-09 02:37:20 Doctor Unassigned, [facility] AUTHORIZATION FOR 2022-03-12 05:01:00 Doctor Unassigned, No [facility] RE[facility] OF [facility] HOME HEALTH - OTHER 2022-01-14 05:01:00 [facility] Planned Activity Planned Date Details Comments Source Diagnostic Test Pending 2019-08-07 glucose, [facility] 00:00:00 fingerstick, Practice blood [code = glucose, fingerstick, blood] Diagnostic Test Pending 2019-08-07 BMP, serum or [facility]a n[facility] Family 00:00:00 plasma [code = Practice BMP, serum or plasma] Instructions [facility] Family Practice Encounters Start End Encounter Admission Attending Care Care Encounter Source Date/Time Date/Time Type Type Clinicians Facility Department ID 2022-09-05 Outpatient IBNS IBNS [id number] [id number] 22:00:09 [id number] [facility] 2022-04-16 Inpatient UR [facility] General Med [id number] [facility] 02[facility]42:53 [facility] 2022-04-16 Inpatient UR JAMAAL [facility] Med [id number] [facility] 02:35:02 [facility] 2021-12-18 Outpatient [id number] [facility] REF [id number] [facility] 08:29:43 [facility] [place] [facility] 2021-12-10 Outpatient 3 [id number] [facility] REF [id number] [facility] 12:33:31 [facility] [place] 2021-12-09 Outpatient [id number] E[facility] REF [id number] [facility] 14:43:46 [facility] [place] 2021-06-17 Outpatient IBNS IBNS [id number] Artemio 12:27:28 [id number] [facility] 2021-06-11 Outpatient [facility] [id number] 13:40:[id number] [facility] 2019-09-07 Outpatient [id number] 10:28:52 АЛЕКСАНДР 2022-06-23 2022-06-23 Orders Doctor YANDEL 1.2.840.114 [id number] Univers 00:00:00 00:00:00 Only Unassigned, ANIL 350.1.13.10 ity of [place] [facility] 4.2.7.2.686 Jad as [phone] [address] 2022-04-08 2022-04-08 Emergency [facility] [id number] Univers 20:54:00 22:51:00 , VINCENT muhammad of [facility] 2022-04-08 2022-04-08 Emergency Auf[place]ide [facility] 1.2.840.114 [id number] Univers 20:54:00 22:51:00 , Vincent GONZALEZ 350.1.13.10 i ty of Caterina DANIELS [place].2.[place] [phone] [facility] [address] [place] 2022-04-08 2022-04-08 Orders Doctor YANDEL 1.2.840.114 [id number] Univers 00:00:00 00:00:00 Only Unassigned, ANIL 350.1.13.10 ity of [place] [facility] 4.2.7.2.686 Jad as [phone] [address] 2022-03-12 2022-03-12 Orders Doctor YANDEL 1.2.840.114 [id number] Univers 00:00:00 00:00:00 Only Unassigned, ANIL 350.1.13.10 ity of [place] [facility] 4.2.7.2.686 Jad as [phone] [address] 2022-02-12 2022-02-12 Telephone [facility] 1.2.840.114 [id number] Univers 00:00:00 00:00:00 Pintics 350.1.13.10 it y of [place] 4.2.7.2.686 Jad as CANDACE?BLEA [phone] Ms dimitri GARCIA [address] [place] [address] OFFICE [facility] 2022-02-03 2022-02-03 Telephone [facility] 1.2.840.114 [id number] Univers 00:00:00 00:00:00 BenitezTrunkbow 350.1.13.10 it y of [place] 4.2.7.2.686 Jad as CANDACE?BLEA [phone] Ms dimitri GARCIA [address] [place] [address] MEDICAL OFFICE [facility] 2022-01-26 2022-01-26 Telephone [facility] 1.2.840.114 [id number] Univers 00:00:00 00:00:00 Benitez L HEALTH 350.1.13.10 it y of [place] 4.2.7.2.686 Jad as CANDACE?BLEA [phone] Ms dimitri [address] OFFICE [facility] 2022-01-26 2022-01-26 Telephone [facility] 1.2.988.203 [id number] Univers 00:00:00 00:00:00 Glenny Vizcaino HEALTH 350.1.13.10 it y of [place] 4.2.7.2.686 Jad as CANDACE?BLEA [phone] Ms dimitri GARCIA 198 [facility] OFFICE [facility] 2022-01-23 2022-01-23 Outpatient [facility] [id number] Univers 11:15:00 12:22:27 GLENNY ity [facility] 2022-01-23 2022-01-23 Office [facility] 1.2.840.114 [id number] Univers 11:15:00 12:22:27 Visit Glenny Vizcaino HEALTH 350.1.13.10 it y of [place] 4.2.7.2.686 Jad as CANDACE?BLEA [phone] Ms dimitri GARCIA 198 [facility] 2022-01-23 2022-01-23 Outpatient [facility] [id number] Univers 11:15:00 12:22:27 GLENNY [facility]y [facility] 2022-01-14 2022-01-14 Orders Doctor YANDEL 1.2.840.114 [id number] Univers 00:00:00 00:00:00 Only Unassigned, ANIL 350.1.13.10 ity of [place] [facility]OSPITAL 4.2.7.2.686 Jad as [phone] [address] 2021-12-30 2021-12-30 Telephone [facility] 1.2.840.114 [id number] Univers 00:00:00 00:00:00 Benitez HEALTH 350.1.13.10 it y of [place] 4.2.7.2.686 Jad as CANDACE?BLEA [phone] Ms dimitri GARCIA 198 [facility] 2021-12-25 2021-12-25 Telephone [facility] 1.2.840.114 [id number] Univers 00:00:00 00:00:00 Benitez L HEALTH 350.1.13.10 it y of [place] 4.2.7.2.686 Jad as CANDACE?BLEA [phone] Ms dimitri GARCIA 198 [facility] 2021-12-25 2021-12-25 Telephone [facility] 1.2.840.114 [id number] Univers 00:00:00 00:00:00 Benitez L HEALTH 350.1.13.10 it y of [place] 4.2.7.2.686 Jad as CANDACE?BLEA [phone] Ms dimitri GARCIA [address] [place] [address] 2021-12-23 2021-12-23 Telephone [facility] 1.2.840.114 95 [id number] Univers 00:00:00 00:00:00 Benitez L HEALTH 350.1.13.10 it y of [place] 4.2.7.2.686 Jad as CANDACE?BLEA [phone] Ms dimitri GARCIA [address] [place] [address] 2021-12-22 2021-12-22 Outpatient Day VIDAL [facility] [id number] Univers 15:40:00 23:59:00 [facility] 2021-12-22 2021-12-22 Outpatient [facility] [id number] Univers 15:15:00 16:18:[address] [facility] 2021-12-22 2021-12-22 Office [facility] 1.2.840.114 [id number] Univers 15:15:00 16:18:41 Visit [facility] 350.1.13.10 it y of [place] 4.2.7.2.686 Jad as CANDACE?BLEA [phone] Ms dimitri GARCIA [address] [place] [address] OFFICE [facility] 2021-12-22 2021-12-22 Telephone [facility] 1.2.840.114 [id number] Univers 00:00:00 00:00:00 Benitez L HEALTH 350.1.13.10 it y of [place] 4.2.7.2.686 Jad as CANDACE?BLEA [phone] Ms dimitri GARCIA [address] [place] [address] 2021-12-09 2021-12-09 Telephone [facility] 1.2.840.114 95 [id number] Univers 00:00:00 00:00:00 Benitez L HEALTH 350.1.13.10 it y of [place] 4.2.7.2.686 Jad as CANDACE?BLEA [phone] Ms dical KNEY [address] [place] MEDICAL OFFICE BUILDING 2021-12-08 2021-12-08 Outpatient R [facility] SOR [id number] Univers 10:44:00 16:02:00 BENITEZ ity of [facility] 2021-12-08 2021-12-08 Hospital [facility] 1.2.840.114 [id number] Univers 10:44:00 16:02:00 Encounter Benitez GONZALEZ 350.1.13.10 ity of [place].2.[place] [phone] [facility] [address] [place] 2021-12-08 2021-12-08 Surgery [facility] 1.2.479.325 [id number] Univers 12:45:00 14:29:00 Benitez GONZALEZ 350.1.13.10 i ty of [place] 4.[place].7.2.[place] [phone] [address] 2021-12-08 2021-12-08 Orders Doctor YANDEL 1.2.840.114 [id number] Univers 00:00:00 00:00:00 Only Unassigned, ANIL 350.1.13.10 ity of [place] [facility] 4.2.7.2.686 Jad as [phone] [facility] 009 [place] 2021-12-05 2021-12-05 Drop Wire Aligner Stephane, Adc Lab Main [facility] 1.2.8 40.114 [id number] Univers 09:15:00 09:30:00 Visit Benitez Berger Vale GONZALEZ 350.1.13.10 ity of [place].2.[place] [phone] Ms dicjyothi [facility] 353 [facility] 2021-12-05 2021-12-05 Laboratory Only, Adc Test [facility] 1.2.840. 114 [id number] Univers 08:45:00 09:00:00 Only BergerBenitez scruggs 350.1.13.10 ity of [place].2.7.2.[place] [id number] [facility] 353 [place] 2021-12-05 2021-12-05 Outpatient R AB [facility] [id number] Univers 09:34:20 08:59:00 EBNITEZ ity of [facility] 2021-12-05 2021-12-05 Hospital Ab [facility] 1.2.840.114 [id number] Univers 08:30:00 08:59:00 Encounter Benitez GONZALEZ 350.1.13.10 ity of [place] 4.2.7.2.686 [place] [id number] [facility] 8[address] [place] 2021-12-02 2021-12-02 Prep For Ab [facility] 1.2.840.114 [id number] Univers 00:00:00 00:00:00 Surgery Benitez Collazo HEALTH 350.1.13.10 it y of [facility] 4.2.7.2.686 Jad as CANDACE?BLEA [phone] Ms dimitri ROLLINS 198 [place] MEDICAL OFFICE [facility] 2021-12-01 2021-12-01 Telephone [facility] 1.2.840.114 [id number] Univers 00:00:00 00:00:00 Benitez Collazo HEALTH 350.1.13.10 it y of [place] 4.2.7.2.686 Jad as CANDACE?BLEA [phone] Ms dimitri GARCIA 198 [place] MEDICAL OFFICE [facility] 2021-12-01 2021-12-01 Orders Doctor YANDEL 1.2.840.114 [id number] Univers 00:00:00 00:00:00 Only Unassigned, ANIL 350.1.13.10 ity of [place] [facility] 4.2.7.2.686 Jad as [phone] [facility] 00[address] [place] 2021-11-28 2021-11-28 Telephone [facility] 1.2.840.114 95 [id number] Univers 00:00:00 00:00:00 Benitez Collazo HEALTH 350.1.13.10 it y of [facility] 4.2.7.2.686 Jad as CANDACE?BLEA [phone] Ms dimitri ROLLINS 198 [place] MEDICAL OFFICE [facility] 2021-11-25 2021-11-25 Telephone [facility] 1.2.840.114 [id number] Univers 00:00:00 00:00:00 Benitez [facility] 350.1.13.10 it y of [facility] 4.2.7.2.686 Jad as CANDACE?BLEA [id number] Ms dimitri [address] MEDICAL OFFICE BUILDING 2021-11-25 2021-11-25 Orders Doctor YANDEL 1.2.840.114 [id number] Univers 00:00:00 00:00:00 Only Unassigned, ANIL 350.1.13.10 [facility] 4.2.7.2.686 Jad as [phone] [address] 2021-11-24 2021-11-24 Outpatient [facility] [id number] Univers 14:45:00 15:38:44 [facility] 2021-11-24 2021-11-24 Office [facility] 1.2.491.662 [id number] Univers 14:45:00 15:38:44 Visit [facility] 350.1.13.10 it y of [place] 4.2.7.2.686 Jad as CANDACE?BLEA [phone] Ms dimitri [address] OFFICE [facility] 2021-11-24 2021-11-24 Outpatient [facility] [id number] Univers 10:15:00 10:15:00 [facility] 2021-11-13 2021-11-13 Emergency [facility]ade[facility] [id number] [facility] 07:53:00 11:37:00 Oluwadolapo [address] Cl [facility] 2021-11-13 2021-11-13 Emergency EM Oyebadejo, [facility] [id number] [id number] [facility] 07:53:00 07:53:00 Oluwadolapo [id number] Cl [facility] 2021-11-06 2021-11-06 Transition NAGI Narayanan 1.2.840.114 [id number] Univers 00:00:00 00:00:00 of Care Alina [place] 350.1.13.10 i ty of [place].7.2.[place] [id number] [facility] [address] [place] 2021-10-26 2021-11-05 Inpatient X HANNAH [facility] [id number] Univers 11:31:00 15:25:00 DIANE itheidi [facility] 2021-10-26 2021-11-05 Hospital Mathew Raines [facility] 1.2.840.1 14 [id number] Univers 11:31:00 15:25:00 Encounter Kandy Sanchez 350.1.13.10 ity of [place] 4.2.7.2.686 [facility] [phone] [facility] [address] [place] 2021-09-26 2021-09-26 Office [facility] 1.2.840.114 [id number] Univers 10:30:00 11:00:00 Visit [facility] 350.1.13.10 it y of [place] 4.2.7.2.686 Jad as CANDACE?BLEA [phone] Ms dimitri GARCIA 198 [place] MEDICAL OFFICE [facility] 2021-09-26 2021-09-26 Outpatient R YOUNG [facility] [id number] Univers 10:30:00 10:30:[address] [facility] 2021-09-26 2021-09-26 Outpatient R YOUNG [facility] [id number] Univers 10:30:00 10:30:[address] [facility] 2021-09-15 2021-09-15 Outpatient R [facility] [id number] Univers 12:56:02 23:59:00 VERONICA ity o f [facility] 2021-09-15 2021-09-15 [facility] 1.2.893.198 [id number] Univers 12:56:02 23:59:00 Encounter [facility] 350.1.13.10 ity of [place] 4.2.7.2.686 Jad as CANDACE?BLEA [phone] Ms dimitri GARCIA [address] [place] MEDICAL OFFICE [facility] 2021-09-15 2021-09-15 Urgent [facility] 1.2.840.114 [id number] Univers 12:40:00 13:03:01 Care Veronica HEALTH 350.1.13.10 i ty of [facility] 4.2.7.2.686 Ajd as CANDACE?BLEA [phone] Ms dimitri GARCIA 370 [facility] OFFICE [facility] 2021-07-25 2021-07-25 Outpatient Day [facility] [id number] Univers 10:15:00 10:15:00 GLENNY ity [facility] 2021-07-24 2021-07-24 Telephone [facility] 1.2.741.929 [id number] Univers 00:00:00 00:00:00 Glenny S [place] 350.1.13.10 i ty of [facility] 4.2.7.2.[place] [phone] Ms dimitri KRAMER 198 [facility] 2021-07-21 2021-07-21 [facility] 1.2.483.590 [id number] Univers 00:00:00 00:00:00 [facility] HEALTH 350.1.13.10 it y of [facility] 4.2.7.2.686 Jad as CANDACE?BLEA [phone] Ms dimitri GARCIA 198 [facility] 2021-07-18 2021-07-18 Orders Doctor YANDEL 1.2.840.114 [id number] Univers 00:00:00 00:00:00 Only Unassigned, ANIL 350.1.13.10 ity of [place] [facility] 4.2.7.2.686 Jad as [phone] [address] 2021-07-07 2021-07-07 Outpatient Day [facility]ID[facility] [id number] Univers 14:45:00 15:42:55 GLENNY ity [facility] 2021-06-30 2021-06-30 Outpatient Day VIDAL [facility] [id number] Univers 16:00:00 16:00:00 GLENNY ity [facility] 2021-06-27 2021-06-27 Orders Doctor YANDEL 1.2.840.114 [id number] Univers 00:00:00 00:00:00 Only Unassigned, ANIL 350.1.13.10 ity of [place] [facility]OSPITAL 4.2.7.2.686 Jad as [id number] [facility] [address] [place] 2021-06-12 2021-06-12 Telephone [facility] 1.2.666.226 [id number] Univers 00:00:00 00:00:00 Glenny S HEALTH 350.1.13.10 it y of [place] 4.2.7.2.686 Jad as CANDACE?BLEA [phone] Ms dimitri GARCIA 198 [facility] OFFICE [facility] 2021-06-11 2021-06-11 Telephone [facility] 1.2.409.474 [id number] Univers 00:00:00 00:00:00 Glenny S HEALTH 350.1.13.10 it y of [facility] 4.2.7.2.686 Jad as CANDACE?BLEA [phone] Ms dimitri GARCIA [address] [place] [address] OFFICE [facility] 2021-06-06 2021-06-06 Outpatient [facility] [id number] Univers 08:45:00 09:27:46 GLENNY [facility] 2021-06-06 2021-06-06 Office [facility] 1.2.840.114 [id number] Univers 08:45:00 09:00:00 Visit Glenny S [facility] 350.1.13.10 it y of [place] 4.2.7.2.686 Jad as CANDACE?BLEA [id number] Ms dimitri GARCIA [address] [place] [address] OFFICE [facility] 2021-06-02 2021-06-02 Emergency [facility] ERT [id number] Univers 14:15:00 19:32:00 RADHA [facility] 2021-06-02 2021-06-02 Emergency X NICOLASA, [facility] ERT [id number] Univers 14:15:00 19:32:00 RADHA [facility] 2021-06-02 2021-06-02 Emergency [facility] 1.2.182.101 [id number] Univers 14:15:00 19:32:00 Radha GONZALEZ 350.1.13.10 ity of [place].2.[place] [phone] [facility] [address] [place] 2021-05-28 2021-05-28 Outpatient Davar_P VFP VFP [id number] [facility] 04:30:00 04:30:00 Family Practic e 2021-05-26 2021-05-26 Outpatient Day YOUNG [facility] [id number] Univers 15:15:00 23:59:00 GLENNY itheidi [facility] 2021-05-26 2021-05-26 [facility] 1.2.840.114 [id number] Univers 15:15:00 23:59:00 Encounter Glenny Vizcaino [facility] 350.1.13.10 ity of [facility] 4.2.7.2.686 Jad as CANDACE?BLEA [id number] Ms dimitri GARCIA 809 [facility] OFFICE [facility] 2021-05-26 2021-05-26 Outpatient Day YOUNG [facility] [id number] Univers 15:15:00 16:33:32 GLENNY itheidi [facility] 2021-05-26 2021-05-26 Office [facility] 1.2.840.114 [id number] Univers 15:15:00 15:30:00 Visit Glenny Vizcaino [facility] 350.1.13.10 it y of [place] 4.2.7.2.686 Jad as CANDACE?BLEA [id number] Ms dimitri GARCIA 198 [facility] OFFICE [facility] 2021-05-26 2021-05-26 Orders Doctor HUMPHRIES 1.2.840.114 [id number] Univers 00:00:00 00:00:00 Only Unassigned, ANIL 350.1.13.10 ity of [place] [facility] 4.2.7.2.686 Jad as [id number] [address] 2021-05-15 2021-05-15 Orders Doctor YANDEL 1.2.840.114 [id number] Univers 00:00:00 00:00:00 Only Unassigned, ANIL 350.1.13.10 ity of [place] [facility] 4.2.7.2.686 Jad as [phone] [address] 2021-05-13 2021-05-13 Telephone [facility] 1.2.840.114 [id number] Univers 00:00:00 00:00:00 Benitez L HEALTH 350.1.13.10 it y of [facility] 4.2.7.2.686 Jad as CANDACE?BLEA [phone] Ms dimitri GARCIA [address] [place] [address] MEDICAL OFFICE BUILDING 2021-05-12 2021-05-12 Outpatient R YOUNG [facility] [id number] Univers 07:12:00 16:55:00 GLENNY ity of [facility] 2021-05-12 2021-05-12 Hospital Benitez Berger [facility] 1.2.840 .114 [id number] Univers 07:12:00 16:55:00 Encounter Glenny Vidal S [facility] 350.1.13.10 ity of [place].2.7.2.[place]ICAL [phone] [facility] [address] [place] 2021-05-12 2021-05-12 Surgery Ab [facility] 1.2.645.140 [id number] Univers 09:00:00 11:18:00 Benitez GONZALEZ 350.1.13.10 i ty of [place] 4.2.7.2.[place]GICAL [id number] [facility] [address] [place] 2021-05-12 2021-05-12 Orders Doctor HUMPHRIES 1.2.840.114 [id number] Univers 00:00:00 00:00:00 Only Unassigned, ANIL 350.1.13.10 ity of [place] [facility] 4.2.7.2.686 Jad as [id number] [facility] [address] [place] 2021-05-09 2021-05-09 Laboratory Only, Adc Test [facility] 1.2.840. 114 [id number] Univers 09:45:00 10:00:00 Only Aldo Bustos 350.1.13.10 ity [place].2.[place] [phone] [facility] 353 [place] 2021-05-09 2021-05-09 Outpatient R [facility] [id number] Univers 09:45:00 09:45:00 ALDO muhammad of [facility] 2021-05-09 2021-05-09 Orders Doctor HUMPHRIES 1.2.840.114 [id number] Univers 00:00:00 00:00:00 Only Unassigned, ANIL 350.1.13.10 ity of [place] [facility] 4.2.7.2.686 Jad as [id number] [facility] [address] [place] 2021-05-08 2021-05-08 Outpatient [facility] [id number] Univers 10:11:52 23:59:00 BENITEZ ity of [facility] 2021-05-08 2021-05-08 [facility] 1.2.840.114 [id number] Univers 10:11:52 23:59:00 Encounter Benitez GONZALEZ 350.1.13.10 ity of [facility] 4.2.7.2.[place] [id number] [facility] [address] [place] 2021-05-08 2021-05-08 [facility] 1.2.840.114 [id number] Univers 10:11:07 23:59:00 Encounter Benitez GONZALEZ 350.1.13.10 ity of [facility] 4.2.7.2.[place] [id number] [facility] [address] [place] 2021-05-08 2021-05-08 Drop Wire Aligner Stephane, Yuniel Lab Main [facility] 1.2.8 40.114 [id number] Univers 10:00:00 10:15:00 Visit Benitez Berger 350.1.13.10 ity of [place].2.[place] [phone] Ms dimitri KRAMER [address] BUILDING 2021-05-08 2021-05-08 Telephone [facility] 1.2.840.114 [id number] Univers 00:00:00 00:00:00 Benitez Collazo HEALTH 350.1.13.10 it y of [place] 4.2.7.2.686 Jad as CANDACE?BLEA [id number] Ms dicjyothi ROLLINSEY [address] [place] MEDICAL OFFICE BUILDING 2021-05-05 2021-05-05 Orders Doctor YANDEL 1.2.840.114 [id number] Univers 00:00:00 00:00:00 Only Unassigned, ANIL 350.1.13.10 ity of [place] [facility] 4.2.7.2.686 Jad as [phone] [address] 2021-05-01 2021-05-01 Office [facility] 1.2.840.114 [id number] Univers 08:45:00 09:00:00 Visit Glenny [facility] 350.1.13.10 it y of [place] 4.2.7.2.686 Jad as CANDACE?BLEA [id number] Ms dimitri GARCIA 198 [facility] OFFICE [facility] 2021-05-01 2021-05-01 Outpatient Day [facility] [id number] Univers 08:45:00 08:45:00 GLENNY [facility]heidi [facility] 2021-05-01 2021-05-01 [facility]patient [facility] [id number] Univers 08:45:00 08:45:[address] [facility] 2021-05-01 2021-05-01 Prep For Berger [facility] 1.2.840.114 [id number] Univers 00:00:00 00:00:00 Surgery [facility]air 350.1.13.10 it y of [place] 4.2.7.2.686 Jad as CANDACE?BLEA [phone] Ms dimitri GARCIA [address] [place] [address] OFFICE [facility] 2021-04-28 2021-04-28 Orders Doctor YANDEL 1.2.840.114 [id number] Univers 00:00:00 00:00:00 Only Unassigned, ANIL 350.1.13.10 ity of [place] [facility] 4.2.7.2.686 Jad as [phone] [address] 2021-04-22 2021-04-22 [facility]TEL[facility] [id number] Co mmon 00:00:00 00:00:00 [facility] 2021-04-18 2021-04-18 Telephone bA [facility] 1.2.840.114 [id number] Univers 00:00:00 00:00:00 Benitez L inZair 350.1.13.10 it y of [place] 4.2.7.2.686 Jad as CANDACE?BLEA [id number] Ms dimitri GARCIA [address] [place] [address] MEDICAL OFFICE [facility] 2021-04-14 2021-04-14 [facility]phone [facility] 1.2.840.114 [id number] Univers 00:00:00 00:00:00 Benitez TY 350.1.13.10 it y of [place] 4.2.7.2.686 Jad as CANDACE?BLEA [phone] Ms dimitri GARCIA 198 [facility] OFFICE [facility] 2021-04-07 2021-04-07 [facility] [id number] Univers 14:00:00 23:59:00 BENITEZBETTY muhammad [facility] 2021-04-07 2021-04-07 [facility] 1.2.840.114 [id number] Univers 14:00:00 23:59:00 Encounter Benitez TY 350.1.13.10 [facility] 4.2.7.2.686 Jad as CANDACE?BLEA [phone] Ms dimitri GARCIA 809 [facility] 2021-04-07 2021-04-07 [facility] [id number] Univers 14:00:00 15:00:54 BENITEZ [facility] 2021-04-07 2021-04-07 Office [facility] [id number] Univers 13:56:59 15:00:54 Visit Benitez TY 350.1.13.10 it y [facility] 4.2.7.2.686 Jad as CANDACE?BLEA [phone] Ms olamidejyothi GARCIA 198 [facility] OFFICE [facility] 2021-04-07 2021-04-07 Orders Doctor HUMPHRIES 1.2.840.114 [id number] Univers 00:00:00 00:00:00 Only Unassigned, ANIL 350.1.13.10 ity of [place] [facility] 4.2.7.2.686 Jad as [phone] [address] 2021-03-31 2021-03-31 Orders Doctor YANDEL 1.2.840.114 [id number] Univers 00:00:00 00:00:00 Only Unassigned, ANIL 350.1.13.10 ity of [place] [facility] 4.2.7.2.686 Jad as [phone] [place] [address] [address] 2021-02-10 2021-02-10 (TEL) STLMLC STLMLC [id number] Co mmon 00:00:00 00:00:00 [facility] 2021-01-21 2021-01-21 (TEL) STLMLC STLMLC [id number] Co mmon 00:00:00 00:00:00 [facility] 2021-01-21 2021-01-21 (IN/ASP) STLMLC STLMLC [id number] C ommon 00:00:00 00:00:[address] [facility] 2021-01-14 2021-01-14 (IN/ASP) STLMLC STLMLC [id number] C ommon 00:00:00 00:00:[address] [facility] 2021-01-07 2021-01-07 (IN/ASP) STLMLC STLMLC [id number] C ommon 00:00:00 00:00:[address] [facility] 2021-01-06 2021-01-06 (TEL) STLMLC STLMLC [id number] Co mmon 00:00:00 00:00:00 [facility] 2021-01-02 2021-01-02 OFFICE STLMLC STLMLC [id number] Co mmon 00:00:00 00:00:00 VISIT NEW [facility] it PT LEVEL 4 [facility] 2020-07-09 2020-07-09 Outpatient Anderson_C VFP VFP [id number] [place] [address] 01:37:00 01:37:00 [id number] [facility] e 2020-03-27 2020-03-27 Outpatient Anderson_C VFP VFP [id number] 01:23:00 01:23:00 [id number] Family Practic e 2019-08-14 2019-08-14 Outpatient Anderson_C VFP VFP [id number] 02:20:00 02:20:00 [id number] Family Practic e 2019-08-14 2019-08-14 Outpatient Fields_C VFP VFP [id number] [address] 02:20:00 02:20:00 [id number] Family Practic e 2019-08-07 2019-08-07 Outpatient Anderson_C VFP VFP [id number] [id number] [facility] 03:40:00 03:40:00 [id number] Family Practic e 2019-08-07 2019-08-07 Cathlyn H VFP [place] - [id number] [facility] 00:00:00 00:00:00 Ashley Luciomahnaz mullins MD: [id number] [facility] VM_HOU_Suga jr Beltran, [facility] [address], ([facility]) [place] [address] , Ph. 2019-08-04 2019-08-04 Outpatient Anderson_C VFP VFP [id number] [facility] 09:28:00 09:28:00 [id number] Family Practic e 2019-07-20 2019-07-20 Outpatient Fields_C VFP VFP [id number] 202 [facility] 02:00:00 02:00:00 98103 Family Practic e 2019-07-20 2019-07-20 Outpatient Anderson_C VFP VFP [id number] [id number] [facility] 02:00:00 02:00:00 26335 Family Practic e 2019-07-18 2019-07-18 Outpatient Anderson_C VFP VFP [id number] [id number] [facility] 12:04:00 12:04:00 12626 Family Practic e 2019-07-17 2019-07-17 Outpatient Anderson_C VFP VFP [id number] [id number] [facility] 06:12:00 06:12:00 [id number] Family Practic e 2019-07-17 2019-07-17 Cathlyn H VFP [place] - [id number] [facility] 00:00:00 00:00:00 Ashley Lucio Karin mullins MD: [id number] [facility] VM_HOU_Suga jr [facility]tr[facility] [address], ([facility]) [place] [address] , Ph. 2019-06-28 2019-06-28 Outpatient Fields_C VFP VFP [id number] [facility] 02:57:00 02:57:00 22814 Family Practic e 2019-06-28 2019-06-28 Outpatient Fields_C VFP VFP [id number] -202 [facility] 02:57:00 02:57:00 22730 Family Practic e 2019-06-28 2019-06-28 Outpatient Fields_C VFP VFP [id number] [facility] 02:57:00 02:57:00 29079 Family Practic e 2019-04-26 2019-04-26 Outpatient MHSE MHSE 7500 07:22:00 07:22:00 Mcjr bonilla [facility] l Results Test Description Test [...] 34.2 g/dL 31.6-35.1 RDW-SD (test code = 76653-9) 45.7 fL 39.0-49.9 RDW-CV (test code = 788-0) 13.9 % 12.0-15.5 PLT (test code = 777-3) See_Comment H [Au tomated message] The system which ge nerated this result transmit octavio reference range: 166 - 35 8 10*3/?L. The reference range was not used to interpret th is result as normal/abnormal . MPV (test code = 55186-6) 9.1 fL 9.5-12.9 L NRBC/100 WBC (test code = See_Comment [ Automated message] The [id number]) system which ge nerated this result transmit octavio reference range: 0.0 - 10 .0 /100 WBCs. The reference r jorge was not used to interpr et this result as normal/abnor mal. NRBC x10^3 (test code = See_Comment [Au tomated message] The 2604917210) system which ge nerated this result transmit octavio reference range: 10*3/?L. The reference range was not u sed to interpret this result as normal/abnormal . SEG % (test code = 80086-1) 58 % 33-76 LYMPH % (test code = 31 % 14-54 75754-3) MONO % (test code = 14856-1) 8 % 0-4 H EOS % (test code = 17989-0) 3 % 0-3 ANC (test code = 753-4) 7.77 10*3/uL 1.88-7.09 H Lab Interpretation (test Abnormal code = 29339-1) [id number]23 Test Item Value Reference Interpretation Comments Range TROPONIN I (test 0.015 ng/mL See_Comment [Automated code = 0079821443) message] The system which generated this result [...] biotin. Lab Interpretation Normal (test code = 18187-8) [id number] 04:13:21 Test Item Value Reference Range Interpretation Comments NT-proBNP (test code 878 pg/mL See_Comment H [Autom ated = 0759350445) message] The system which generated this result transmitted reference range : <=125. The reference range was not used to interpret this result as normal/abnormal . LIZ (test code = LIZ) Biotin has been reported to cause a negative bias, interpret results relative to patient's use of biotin. Lab Interpretation Abnormal (test code = 23420-0) [facility]. METABOLIC PANEL (08614)2022-04-09 04:01:02 Test Item Value Reference Range Interpretation Comments NA (test code = 139 mmol/L 135-145 7287404092) K (test code = 3.2 mmol/L 3.5-5.0 L 6734996601) CL (test code = 97 mmol/L 98-108 L 7172578502) CO2 TOTAL (test code = 32 mmol/L 23-31 H 2111006755) AGAP (test code = 2-16 1909531388) BUN (test code = 11 mg/dL 7-23 7058496811) GLUCOSE (test code = 161 mg/dL 70-110 H 2675903917) CREATININE (test code = 1.05 mg/dL 0.50-1.04 H 3946966634) TOTAL BILI (test code = 0.4 mg/dL 0.1-1.6 8259778206) CALCIUM (test code = 8.8 mg/dL 8.6-10.6 9163740361) T PROTEIN (test code = 7.3 g/dL 6.3-8.2 9086512632) ALBUMIN (test code = 4.3 g/dL 3.5-5.0 5191744766) ALK PHOS (test code = 87 U/L 34-122 4570869258) ALTv (test code = 20 U/L 5-35 1742-6) AST(SGOT) (test code = 23 U/L 13-40 6490531551) eGFR (test code = mL/min/1.73m2 0496559860) LIZ (test code = LIZ) Association of [...] tests). Lab Interpretation Abnormal (test code = 93631-2) [facility]- XR TIBIA/FIBULA 2 V [id number] 00:00:00 [facility] : 1960 Sex: F FAX: Edith Akhtar MD [phone] [place]ann: [place] St: [facility] FAX: Bereket Pratt Name: DESTINY GARAY FSED : 8Age/S: 61/F [address] [facility] Unit #: [id number] Loc: [place] [address] Phys: Wendie Pratt MD Acct: [id number] Dis Date: Status: REG ER PHONE #: Exam Date: 11/13/2021 0900 FAX #:Reason: fall, s/p knee replacement EXAMS: CPT CODE: [id number] XR TIBIA/FIBULA 2 [place] [id number] PROCEDURE INFORMATION: Exam: XR Right Tibia and [...] MD Technologist: RT Freddy(R)(CT) Trnscrd Date/Time/By: 11/13/2021 (0859) : By: [email or web address] Orig Print D/T: S: 11/13/2021 (0903) PAGE 1 Signed Report- XR KNEE 1 OR 2 V [id number] 00:00:00 [facility] : 1960 Sex: F FAX: Edith Akhtar MD [phone] [place]ann: [place] St: REG FAX: Bereket Pratt Name: DESTINY GARAY Ian FSED : 1960 Age/S: 61/F [address] [facility] Unit #: [id number] Loc: [place] [address] Phys: Wendie Pratt MD Acct: [id number] Dis Date: Status: REG ER PHONE #: Exam Date: 11/13/2021 0900 FAX #:Reason: fall, s/p knee replacement EXAMS: CPT CODE: [id number] XR KNEE 1 OR 2 V RT 16794 PROCEDURE INFORMATION: Exam: XR Right Knee Exam [...] 1 Signed Report- XR ANKLE 2 VIEWS [id number] 00:00:00[facility] MARYJOHAWKDESTINY : 1960 Sex: F FAX: Edith Akhtar MD [phone] [place]ann: [place] St: REG FAX: Bereket Pratt Name: DESTINY GARAY FSED : 1960ge/S: 61/ [address] [facility] Unit #: [id number] Loc: [place] [address] Phys: Wendie Pratt MD Acct: [id number] Dis Date: Status: REG ER PHONE #: Exam Date: 11/13/2021 0900 FAX #:Reason: fall, ankle swelling and tenderness medially EXAMS: CPT CODE: [id number] XR ANKLE 2 VIEWS [id number] PROCEDURE INFORMATION: Exam: XR Right Ankle Exam [...] No other fractures are seen. The ankle mortiseis intact. The joint space is well maintained. [...] Freddy(R)(CT) Trnscrd Date/Time/By: 11/13/2021 (905) : By: [email or web address] Orig Print D/T: S: 11/13/2021 (905) PAGE 1 Signed ReportSCR MAMM BILATERAL ELENA CAD [id number] 07:52:28 - SCR MAMM BILATERAL ELENA CAD DIGITALBILATERAL DIGITAL SCREENING MAMMOGRAM 3D/2D WITH CAD: 04/25/2019CLINICAL: Asymptomatic. Digital breast tomosynthesis was performed in addition to routine CC and MLO views. Current mammographic images were evaluated by either a [employer] M-Vu or a [employer] ImageCheckerCAD (computer aided detection system). Comparison is made to exams dated 06/17/2016 mammogram, 05/28/2014 mammogram, and 08/07/2008 mammogram - [facility]. The tissue of both breasts [...] one year. Arnold Doyle M.D. et/penrad:04/27/2019 07:52:28 A Operator: Asia BENEDICT RT(M), [facility] sent: BIRADS 1-2 Normal Mammogram BI-RADS: 2 Benign Notes Date/Time Note Provider Source 2021-11-13 08:[facility]00[facility] [facility] REPORT#:[id number] REPORT STATUS: Signed DATE:11/13/21 TIME: 08 PATIENT: DESTINY GARAY UNIT #: [id number] ROOM/BED: AGE: 61 SEX: F PCP PHYS: Edith Dalal MD SERVICE AUTHOR: Alma Pratt MD * ALL edits or amendments must be made on the el ectronic/computer document * HPI-Extremity Prob Lower Free Text HPI Notes Free Text HPI Notes 61-year-old female with history of HTN, DM, RA p resents after mechanical fall with right leg pain. Patient reports while using her walker she attempted to put on her jacket and slowly slid to the ground, falling onto her right leg. Denies head trauma or LOC. Reports pain from her right knee down to her right ankle. She had right knee replacement 6 months a go, currently resides in a rehab facility. General Initial Greet Date/Time 11/13/21 0757 Presentation Chief Complaint Leg problem R Review of Systems Focused Review of Systems Constitutional Denies: Fever. Musculoskeletal Reports: Extremity pain, Extremity swelling. Skin Denies: Laceration. Past Medical History - Adult Stated Complaint FELL, C/O RIGHT LEG PAIN Allergies Coded Allergies: No Known Allergies (11/13/21) Home Medications Reported Medications ARIPiprazole (ABILIFY) 2 MG PO DAILY ACETAMINOPHEN/CODEINE (TYLENOL WITH CODE INE #3 300/30 MG) 2 TAB PO Q6H PRN PRN PAIN ALLOPURINOL (ZYLOPRIM) 100 MG PO BID AMITRIPTYLINE (ELAVIL) 50 MG PO QHS ASPIRIN 81 MG PO DAILY BUMETANIDE (BUMEX) 1 MG PO DAILY CARVEDILOL (COREG) 3.125 MG PO BID DULoxetine DR (CYMBALTA) 60 MG PO DAILY EMPAGLIFLOZIN (JARDIANCE) 5 MG PO DAILY metFORMIN (GLUCOPHAGE) 500 MG PO DAILY FERROUS SULFATE (FEOSOL) 325 MG PO DAILY MAGNESIUM OXIDE (MAG-OXIDE) 400 MG PO DAILY PANTOPRAZOLE DR (PROTONIX) 40 MG PO DAILY CYANOCOBALAMIN (VITAMIN B-12) 1,000 MCG PO DAILY DICLOFENAC SODIUM (DICLOFENAC SODIUM 1%) 1 APPLI C TOPICAL Q4HPRN PRN PAIN Past Medical History: Reports: Diabetes mellitus, Hypertension. Additional Medical History Rheumatoid arthritis Smoking status for patients 13 years old or olde r: Never Smoker Physical Exam Vital Signs Vital Signs First Documented: Result Date Time Pulse Ox 100 11/13 0758 B/P 114/58 11/13 0758 B/P Mean 76 11/13 0758 O2 Delivery Room air 11/13 0758 Temp 36.7 11/13 0758 Pulse 77 11/13 0758 Resp 17 11/13 0758 Last Documented: Result Date Time Pulse Ox 100 11/13 1000 B/P 146/66 11/13 1000 B/P Mean 95 11/13 1000 Pulse 60 11/13 1000 O2 Delivery Room air 11/13 0758 Temp 36.7 11/13 0758 Resp 17 11/13 0758 Review of Vital Signs Reviewed Focused PE General/Const General/Const Awake, Alert, No acute distress Resp/Chest Respiratory/Chest No respiratory distress Cardiovascular Cardiovascular Heart rate NL MS Lower Extrem Lower Ext/Pelvis/MS Neurologic intact, Vascular intact Text/Dict Notes Right knee with diffuse tenderness, but no obvious bony abnormality. Also with tenderness along distal tibia. MS Ankle/Foot Ankle/Foot Neurologic intact, Vascular intact Text/Dict Note Right ankle with swelling and tenderness, most s ignificantly medially. Skin Skin Color NL Interpretation Diagnostics Lab Results Interpretation Results Recent Impressions: RADIOLOGY - XR ANKLE 2 VIEWS RT 11/13 899 Report Impression - Status: SIGNED Entered: 11/13/2021905 IMPRESSION: 1. Distal right fibular fracture. 2. No other osseous abnormalities are seen invol ving the right ankle. 3. There is a small posterior calcaneal enthesop hyte and moderate-sized plantar calcaneal spur. Impression By: [email or web address] - David Carmen M.D . RADIOLOGY - XR TIBIA/FIBULA 2 V RT 11/13 899 Report Impression - Status: SIGNED Entered: 11/13/2021902 Impression: Distal fibular metaphyseal minimally displaced f racture. Please see ankle radiograph for more details. No proximal tib fib fractures. Knee joint arthroplasty is visualized and appear s to be intact without loosening. Impression By: [email or web address] - Amalia Hahn RADIOLOGY - XR KNEE 1 OR 2 V RT 11/13 899 Report Impression - Status: SIGNED Entered: 11/13/2021902 IMPRESSION: No acute osseous findings. Status post total kne e arthroplasty. Impression By: [email or web address] - Sylwia Coffman Procedures Splint Applic - Fx Mgmt #1 Procedure Performed by ED physician Precise Anatomic Location RIGHT DISTAL FIBULA FRACTURE Custom Immobilization Ortho glass, POSTERIOR ANK LE SPLINT Non-Custom Immobilization Eliezer wrap Re-Evaluation MDM Free Text MDM Notes Free Text MDM Notes 61-year-old female with history of HTN, DM, RA p resents after mechanical fall with right leg pain. Will obtain x-rays. Patient received pain medication prior to arrival. Re-Evaluation/Progress Re-Evaluation/Progress Text/Dict Note X-ray with distal fibular fracture. Patient was splinted. Patient reports she is going to call your orthop edic surgeon performed a knee replacement to arrange follow-up. Discharge home with pain control, eloisa ges on CD, instructions for follow-up and splint care. ED Course Medication(s) Ordered Medication(s) Ordered: Central Nervous System Agents Sig/Kayli Start time Last Medication Dose Route Stop Time Status Admin Hydrocodone Bitart/ 1 TAB X1ED STA 11/13 930 D C 11/13 Acetaminophen PO 11/13 0832 0942 Patient Discharge Departure Vital Signs/Condition Vital Signs First Documented: Result Date Time Pulse Ox 100 11/13 0758 B/P 114/58 11/13 0758 B/P Mean 76 11/13 0758 O2 Delivery Room air 11/13 0758 Temp 36.7 11/13 0758 Pulse 77 11/13 0758 Resp 17 11/13 0758 Last Documented: Result Date Time Pulse Ox 100 11/13 1000 B/P 146/66 11/13 1000 B/P Mean 95 11/13 1000 Pulse 60 11/13 1000 O2 Delivery Room air 11/13 0758 Temp 36.7 11/13 0758 Resp 17 11/13 0758 All vital signs available at the time of this en try have been reviewed. Clinical Impression Clinical Impression Primary Impression: Fracture of fibula, distal, right, closed Disposition Decision Discharge )( Discharged to Home Yes )( Time 929 )( Date 11/13/21 Discharge/Care Plan Counseled Regarding Diagnosi s, Imaging studies, Prescriptions, Need for follow- up, When to return to ED (Auto) Prescriptions Current Visit Scripts HYDROcodone/APAP (HYDROcodone/APAP 5/325) 1 TAB PO Q4H PRN PRN pain HYDROcodone/APAP (HYDROcodone/APAP 5/325) 1 TAB PO Q4H PRN PRN pain #20 TABS Patient Instructions ED Ankle Fracture, Distal F ibula, ED Splint Care, Fiberglass Additional Instructions Please arrange follow up with blank Barrios opedist. Referrals Provider Group: PRIMARY CARE Follow-Up: 2-3 Days Discharge Note I have spoken with the patie nt and/or caregivers. I have explained the patient's condition, diagnoses and francisco atment plan based on the information available to me at this time. I have answered the patient's and/ or caregiver's questions and addressed any concerns. The patient and/or careg irma have as good an understanding of the patient 's diagnosis, condition and treatment plan as can be expected at this point. The vital signs have bee n stable. The patient's condition is stable and appr opriate for discharge from the emergency department. The patient will pursue further outpatient evalu ation with the primary care physician or other designated or consulting phys ician as outlined in the discharge instructions. The patient and/or caregivers are agreeable to this plan of care and follow-up instructions have been exp lained in detail. The patient and/or caregivers have received these instructio ns in written format and have expressed an understanding of the discharge inst ructions. The patient and/or caregivers are aware that any significant change in condition or worsening of symptoms should prompt an immediate return to [facility] or the closest emergency department or a call to 911. at 1141 RPT #:[id number] END OF REPORT
[2022-12-24] MEDS ORDERED: METHYLPREDNISOLONE 125 MG INJ ONE (20:06)
[2022-12-24] MEDS ORDERED: LEVALBUTEROL 1.25 MG/3 ML NEB ONE (20:06)
[2022-12-24] MEDS ORDERED: FENTANYL CITR 100 MCG/2 ML ONE (20:08)
--- NOTE | 2022-12-24 20:42 | RAD REPORT ---
EXAM DESCRIPTION: RADChest Single View12/24/2022 8:15 pm CLINICAL HISTORY: PAIN COMPARISON: Chest Single View dated 06/26/2022; Chest Single View dated 06/22/2022; Chest Single View d ated 04/19/2022; Chest Single View dated 03/10/2021 TECHNIQUE: Portable AP view of the chest. FINDINGS: Left basilar opacities are stable in extent compared to the prior exam. Mild central inter stitial prominence, stable. No pneumothorax or effusion. The cardiomediastinal contours are unremarka ble. Left chest wall pacer/AICD in place. IMPRESSION: Stable findings as above. .
[2022-12-24 20:44] LABS: Hematocrit 32.3 % (36.0-45.0); Lymphocytes % 24.5 % (15.3-44.8); MCV 99.3 fL (80-100); MPV 7.6 fL (7.6-11.3); Platelets 409 thou/uL (152-406); RBC Red Blood Cell Count 3.25 M/uL (3.86-4.86)
[2022-12-24 20:45] LABS: Protime INR 0.95
[2022-12-24 21:07] LABS: Magnesium 1.5 mg/dL (1.6-2.4); Potassium 3.3 mEq/L (3.5-5.1)
[2022-12-24 21:08] LABS: Troponin High Sensitivity 177.7 pg/mL (<58.9)
--- NOTE | 2022-12-24 21:45 | RAD REPORT ---
EXAM DESCRIPTION: US - Extrem Venous W Compress Delta - 12/24/2022 9:14 pm CLINICAL HISTORY: Rule out DVT COMPARISON: None. TECHNIQUE: Real-time sonographic evaluation of the bilateral lower extremity deep venous systems was performed. FINDINGS: Normal compressibility, flow augmentation, phasic flow and spontaneous flow is identified in both the left and right lower extremity deep venous systems. No intraluminal filling defects seen. IMPRESSION: No DVT in either lower extremity.
[2022-12-24] MEDS ORDERED: MORPHINE 4 MG/ML SYR ONE (22:18)
[2022-12-24] MEDS ORDERED: CLOPIDOGREL 75 MG TABLET ONE (22:18)
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
[2022-12-25] MEDS ORDERED: ALBUTEROL 2.5 MG/3 ML NEB SOL NEB PRN ×2 (01:31→16:00)
[2022-12-25] MEDS ORDERED: POTASSIUM 25 MEQ EFFERV TAB ONE (02:03)
[2022-12-25] MEDS ORDERED: MORPHINE 4 MG/ML SYR ONE (02:03)
[2022-12-25] MEDS ORDERED: AZITHROMYCIN 500 MG INJ IVPB ONE (02:03)
[2022-12-25] MEDS ORDERED: CEFTRIAXONE 1000 MG/VIAL ONE (02:03)
[2022-12-25] MEDS ORDERED: MAGNESIUM SULFATE 1 gm IVPB 1 GM/100 ML BAG IV ONE (02:04)
[2022-12-25] MEDS ORDERED: WATER FOR INJ,STERILE 10 ML ONE (02:04)
[2022-12-25] MEDS ORDERED: NA CHLORIDE 0.9% 250 ML ONE (02:04)
[2022-12-25] MEDS ORDERED: ENOXAPARIN 100 MG/ML SYR SQ ONE (02:04)
[2022-12-25 03:09] LABS: Troponin High Sensitivity 176.5 pg/mL (<58.9)
[2022-12-25] MEDS: TRAMADOL HCL 50 MG TAB PO PRN ×3 (05:15→23:26)
[2022-12-25] MEDS ORDERED: INSULIN -REGULAR HUMAN 50 UNIT/0.5 ML ML SQ SCH (07:30)
[2022-12-25] MEDS ORDERED: D50W 25 GM/50 ML SYRINGE IV PRN (09:26)
[2022-12-25] MEDS ORDERED: GLUCAGON 1 MG/VIAL IM PRN (09:26)
[2022-12-25] MEDS ORDERED: D10W 125 ML IV PRN (09:29)
[2022-12-25] MEDS: ACETAMINOPHEN 500 MG TAB PO PRN (09:29)
[2022-12-25] MEDS: carvediloL 3.125 MG TAB PO SCH ×2 (09:30→23:06)
[2022-12-25] MEDS: INSULIN -REGULAR HUMAN 50 UNIT/0.5 ML ML SQ SCH ×4 (09:52→23:07)
[2022-12-25] MEDS: BUDESONIDE 0.5 MG/2 ML NEB NEB SCH ×2 (09:56→20:45)
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
[2022-12-25] MEDS: FUROSEMIDE 40 MG/4 ML VIAL IV SCH ×2 (12:00→23:04)
[2022-12-25] MEDS: PANTOPRAZOLE 40MG TABLET PO SCH ×2 (12:00→18:15)
[2022-12-25] MEDS: SPIRONOLACTONE 25 MG TABLET PO SCH (12:00)
[2022-12-25] MEDS: ENOXAPARIN 100 MG/ML SYR SQ SCH ×2 (12:01→23:26)
--- NOTE | 2022-12-25 16:40 | RAD REPORT ---
EXAM DESCRIPTION: CT - Chest For Pe Angio - 12/25/2022 6:55 am CLINICAL HISTORY: Chest pain; SOB TECHNIQUE: Axial computed tomographic angiography images of the chest with intravenous contrast. S agittal and coronal reformatted images were created and reviewed. This CT exam was performed using one or more of the following dose reduction techniques: automated exposure control, adjustment of t he mA and/or kV according to patient size, and/or use of iterative reconstruction technique. MIP reconstructed images were created and reviewed. COMPARISON: Chest CT dated 06/26/2022 FINDINGS: Artifacts: Motion artifact degrades image quality and limits evaluation of segmental and subsegmental vessels. Pulmonary arteries: No central or proximal segmental pulmonary arterial filling defects. Aorta: Mild atherosclerotic disease. Incidental note is made of a 2-vessel aortic arch with commo n origin of the right brachiocephalic and left common carotid arteries. No thoracic aortic aneurysm . Lungs: Mild left basilar consolidation. Pleural space: Small left and trace right pleural effusions. No pneumothorax. Heart: The heart is mildly enlarged. Coronary artery and mitral annular calcification. No signi ficant pericardial effusion. No evidence of RV dysfunction. Mediastinum: The esophagus is mildly patulous and fluid-filled. Small hiatal hernia. Bones/joints: Multilevel spondylosis. No acute fracture. No dislocation. Soft tissues: Postsurgical changes at the left posterior paraspinal soft tissues. Lymph nodes: Unremarkable. No enlarged lymph nodes. Gallbladder and bile ducts: Prior cholecystectomy. Kidneys and ureters: Left renal atrophy. Bilateral renal cortical thinning/scar. Tubes, lines and devices: Left chest wall dual-lead pacer. IMPRESSION: 1. Motion artifact degrades image quality and limits evaluation of segmental and subse gmental vessels. No central or proximal segmental pulmonary embolic disease. 2. Small left and trace right pleural effusions. Mild left basilar consolidation (atelectasis and /or infiltrate). 3. Other findings as above. Electronically signed by: Hortencia Herrera MD 12/25/2022 12:12 AM CDT Due to temporary technical issues with the PACS/Fluency reporting system, reports are being signed by the in house radiologists without review as a courtesy to insure prompt reporting. The interpreting radiologist is fully responsible for the content of the report.
[2022-12-25] MEDS: CEFTRIAXONE 1,000 MG in NA CHLORIDE 0.9% 50 ML IVPB SCH (19:00)
[2022-12-25] MEDS ORDERED: AMLODIPINE 5 MG TAB PO SCH (21:00)
[2022-12-25] MEDS: AMLODIPINE 5 MG TAB PO SCH (23:05)
[2022-12-25] MEDS: ATORVASTATIN 40 MG TAB PO SCH (23:06)
[2022-12-25] MEDS: ALPRAZOLAM 0.25 MG TABLET PO PRN (23:26)
[2022-12-26 04:26] LABS: Albumin 3.1 g/dL (3.4-5.0); Bilirubin Total 0.2 mg/dL (0.2-1.0); Magnesium 1.9 mg/dL (1.6-2.4); Phosphorus 3.6 mg/dL (2.5-4.9); Potassium 3.9 mEq/L (3.5-5.1); Protein, Total 6.9 g/dL (6.4-8.2)
[2022-12-26] MEDS: BUDESONIDE 0.5 MG/2 ML NEB NEB SCH (07:20)
[2022-12-26] MEDS: INSULIN -REGULAR HUMAN 50 UNIT/0.5 ML ML SQ SCH ×4 (07:30→21:21)
[2022-12-26 08:26] LABS: Specific Gravity 1.011 (1.005-1.030); Urine Bilirubin NEGATIVE (Negative); Urine Blood Negative (Negative); Urine Clarity Clear (Clear); Urine Color Colorless (Yellow); Urine Glucose NEGATIVE (Negative); Urine Protein NEGATIVE (Negative); Urine Urobilinogen Normal (Normal); Urine pH 5.5 (5.0-7.0)
[2022-12-26] MEDS: TRAMADOL HCL 50 MG TAB PO PRN ×2 (08:32→16:36)
[2022-12-26] MEDS: carvediloL 3.125 MG TAB PO SCH ×2 (08:32→21:20)
[2022-12-26] MEDS: PANTOPRAZOLE 40MG TABLET PO SCH ×2 (08:33→16:36)
[2022-12-26] MEDS: SPIRONOLACTONE 25 MG TABLET PO SCH (08:33)
[2022-12-26] MEDS: FUROSEMIDE 40 MG/4 ML VIAL IV SCH (08:33)
[2022-12-26] MEDS: CEFTRIAXONE 1,000 MG in NA CHLORIDE 0.9% 50 ML IVPB SCH (08:34)
[2022-12-26] MEDS ORDERED: POTASSIUM CL SA 10 MEQ TAB PO ONE (09:00)
--- NOTE | 2022-12-26 09:49 | P.PN ---
Subjective Date of Service: 12/26/22 Chief Complaint: Shortness of breath Subjective: Improving (Patient is improving cough and shortness of breath have improved denies any fever chills has a productive cough) Review of Systems General: Weakness Respiratory: Cough, Shortness of Breath Physical Examination - Vital Signs Temperature: 98.1 F Blood Pressure: 130/58 Pulse: 66 Respirations: 18 Pulse Ox (%): 96 - Physical Exam General: Alert, In no apparent distress, Oriented x3 Respiratory: Clear to auscultation bilaterally Cardiovascular: No edema, Regular rate/rhythm, Normal S1 S2 Gastrointestinal: Normal bowel sounds, Soft and benign Assessment And Plan - Current Problems (Diagnosis) (1) Diastolic heart failure Current Visit: Yes Status: Acute Plan: Patient is 62 years of age admitted with worsening dyspnea and cough I suspect is from diastolic heart failure exacerbation also has some renal insufficiency which is slightly worse patient was started on high-dose Lasix and spironolactone yesterday will decrease the dose of Lasix today to 40 mg IV daily troponins are declining we will recheck again patient is seen by cardiology scheduled for a stress test on Wednesday we will start patient on [facility] of the [facility] Qualifiers: Heart failure chronicity: acute on chronic Qualified Code(s): I50.33 - Acute on chronic diastolic (congestive) heart failure (2) Sepsis Current Visit: Yes Status: Acute Plan: Possible sepsis etiology unknown patient has no fever White count is mildly elevated will recheck her labs today cultures are so far negative urinalysis is also negative no evidence of pneumonia on the CT scan she has a trace of pleural effusion on the left side on the CT patient has a history of pericardial effusion check repeat lactic acid fluid therapy is not warranted in view of a history of CHF Qualifiers: Sepsis acute organ dysfunction status: unspecified Physician Review: Patient Assessed, Agree with Above Assessment and Plan
[2022-12-26] MEDS: DULERA 200/5 (MOMETASONE/FORMOTEROL) INHALER IH SCH ×2 (10:15→21:25)
--- NOTE | 2022-12-26 10:17 | CON ---
Date of Consultation: 12/25/2022 Reason For Consultation: Shortness of breath. History Of Present Illness: A 62-year-old female, history of diabetes, CHF, dyslipidemia, hypertensi on, rheumatoid arthritis, presented to the emergency room complaining of shortness of breath, lower e xtremity edema, orthopnea and weight gain. Shortness of breath is worsening over the past few days and claimed that she has been having also dry cough and every time she coughs she will have a chest pain with it and having a low-grade fever as well. Denies any other complaints. Past Medical History: As outlined above in the HPI. Medications: Refer reconciliation sheet for detailed list. Allergies: SULFASALAZINE. Family History: No premature coronary artery disease or cancer. Social History: She does not smoke. She drinks alcohol. Does use any drugs. Review of Systems: All systems reviewed and they were negative except as mentioned in the HPI. Physical Examination: Vital Signs: Reviewed. Head and Neck: Pupils are equal, reactive to light. Intact eye movements. No JVD seen. No cervica l lymphadenopathy. Neck is supple. Thyroid is not enlarged. Lungs: Decreased breathing sounds with rhonchi bilaterally. No accessory muscle use or muscle retra ction. Heart: Regular rate and rhythm. No extra sounds. Abdomen: Soft, nontender. Bowel sounds positive. No organomegaly. No masses or hernia. No rigidi ty or rebound. Extremities: No edema, clubbing, or cyanosis. Intact pulses. Skin: No rash. Neurologic: Alert, awake, oriented x3. No acute focal deficits appreciated. Lymph Nodes: No cervical or axillary lymphadenopathy. Investigations: BUN is 29, creatinine 1.49. Her troponin peaked at 177 and trending down. White bl ood count 12,000 on admission, hemoglobin 10.7. The CT scan of the chest showed no pulmonary embolis m. Questionable left basilar pneumonia. Assessment/recommendation: 1.Shortness of breath. I do not see clinically a fluid overload condition and patient was on Lasix 40 mg IV q.12 hours and her BUN, creatinine are increasing. I will recommend to stop the Lasix at th is point and allow for treatment for possible pneumonia and to avoid going into acute drea l failure. 2.Elevated troponin. There is no chest pain. Patient will need ischemia evaluation and I will arra nge for that once her current condition is stable. 3.Dyslipidemia. Continue statin. 4.Hypertension. Blood pressure is controlled. Continue current management. 5.Cough and low-grade fever and shortness of breath, likely representing pneumonia. Pulmonary is on the case. /MODL Voice ID: [id number] Report ID: [id number]
[2022-12-26 11:08] LABS: Absolute Lymphocytes (CBC) 4.8 K/uL (0.7-4.9); Hematocrit 31.7 % (36.0-45.0); Lymphocytes % 26.1 % (15.3-44.8); MCV 99.9 fL (80-100); MPV 7.4 fL (7.6-11.3); Platelets 416 thou/uL (152-406); RBC Red Blood Cell Count 3.17 M/uL (3.86-4.86)
[2022-12-26] MEDS: ENOXAPARIN 100 MG/ML SYR SQ SCH (12:15)
[2022-12-26 12:36] LABS: Blood Morphology Comment NOT SEEN (NOT SEEN); Platelet Estimate ADEQ
--- NOTE | 2022-12-26 21:18 | P.PN ---
Date of Service: 12/26/22 Vital Signs Temp Pulse Resp BP Pulse Ox 98.0 F 69 18 135/60 99 12/26/22 16:00 12/26/22 16:00 12/26/22 16:36 12/26/22 16:00 12/26/22 16:00 Medications Acetaminophen (Acetaminophen 500 Mg Tab) 500 mg PO Q4HP PRN PRN Reason: Pain scale 2-4 (Mild) Last Admin: 12/25/22 09:29 Dose: 500 mg Albuterol Sulfate (Albuterol 2.5 Mg/3 Ml Neb Zulay) 2.5 mg NEB [id number] PRN PRN Reason: SHORTNESS OF BREATH Alprazolam (Alprazolam 0.25 Mg Tablet) 0.25 mg PO BEDTIME PRN PRN PRN Reason: INSOMNIA Last Admin: 12/25/22 23:26 Dose: 0.25 mg Amlodipine Besylate (Amlodipine 5 Mg Tab) 5 mg PO BEDTIME [facility] Last Admin: 12/25/22 23:05 Dose: 5 mg Atorvastatin Calcium (Atorvastatin 40 Mg Tab) 40 mg PO BEDTIME [facility] Last Admin: 12/25/22 23:06 Dose: 40 mg Carvedilol (Carvedilol 3.125 Mg Tab) 3.125 mg PO BID [facility] Last Admin: 12/26/22 08:32 Dose: 3.125 mg Enoxaparin Sodium (Enoxaparin 100 Mg/Ml Syr) 100 mg SQ Q12H WILLIS Last Admin: 12/26/22 12:15 Dose: 100 mg Glucagon (Glucagon 1 Mg/Vial) 1 mg IM 1X PRN; Protocol PRN Reason: HYPOGLYCEMIA Dextrose (Dextrose 10% Water Iv Soln.) 125 mls @ 0 mls/hr IV PRN PRN; Protocol PRN Reason: HYPOGLYCEMIA Ceftriaxone Sodium 1,000 mg/ (Sodium Chloride) 50 mls @ 100 mls/hr IVPB DAILY [facility]; Protocol Last Admin: 12/26/22 08:34 Dose: 50 mls Insulin Human Regular (Insulin -Regular Human 50 Unit/0.5 Ml Ml) 0 unit SQ ACHS WILLIS; Protocol Last Admin: 12/26/22 16:37 Dose: 3 unit Ondansetron HCl (Ondansetron 4 Mg/2 Ml Vial) 4 mg IV Q6HP PRN PRN Reason: NAUSEA / VOMITING Pantoprazole Sodium (Pantoprazole 40mg Tablet) 40 mg PO BIDAC WILL[facility]; Protocol Last Admin: 12/26/22 16:36 Dose: 40 mg Sodium Chloride (Flush Normal Saline 10 Ml) 10 ml IV BID [facility] Last Admin: 12/26/22 08:34 Dose: 10 ml Spironolactone (Spironolactone 25 Mg Tablet) 25 mg PO DAILY [facility] Last Admin: 12/26/22 08:33 Dose: 25 mg Tramadol HCl (Tramadol Hcl 50 Mg Tab) 50 mg PO TID PRN PRN Reason: Pain scale 8-10 (Severe) Last Admin: 12/26/22 16:36 Dose: 50 mg Assessment/ Plan: Nephrology No dyspnea No chest pain Feeling better No acute events overnight Vitals, medications, blood work and imaging reviewed in the chart. NAD. NCAT. MMM. Neck supple. Normal respiratory effort. RRR. Abd ND. No C/C. LE Edema trace. No rash. AAO. Normal speech. CKD III -No NSAIDs HTN with CKD/ CHF -Continue Amlodipine Diastolic CHF, A/C Pulmonary HTN -Continue spironolactone DM II with CKD -RISS Anemia in chronic illness -Monitor H&H Hospitalist note reviewed
[2022-12-26] MEDS: ATORVASTATIN 40 MG TAB PO SCH (21:20)
[2022-12-26] MEDS: AMLODIPINE 5 MG TAB PO SCH (21:21)
[2022-12-27] MEDS: ENOXAPARIN 100 MG/ML SYR SQ SCH ×3 (00:17→22:01)
[2022-12-27 04:20] LABS: Bilirubin Total 0.3 mg/dL (0.2-1.0); Magnesium 1.9 mg/dL (1.6-2.4); Phosphorus 3.6 mg/dL (2.5-4.9); Potassium 4.3 mEq/L (3.5-5.1); Protein, Total 6.8 g/dL (6.4-8.2)
[2022-12-27] MEDS: SPIRONOLACTONE 25 MG TABLET PO SCH (08:07)
[2022-12-27] MEDS: DULERA 200/5 (MOMETASONE/FORMOTEROL) INHALER IH SCH ×2 (08:07→19:54)
[2022-12-27] MEDS: carvediloL 3.125 MG TAB PO SCH ×2 (08:08→19:56)
[2022-12-27] MEDS: PANTOPRAZOLE 40MG TABLET PO SCH ×2 (08:08→16:11)
[2022-12-27] MEDS: CEFTRIAXONE 1,000 MG in NA CHLORIDE 0.9% 50 ML IVPB SCH (08:09)
[2022-12-27] MEDS: INSULIN -REGULAR HUMAN 50 UNIT/0.5 ML ML SQ SCH ×4 (08:22→19:56)
[2022-12-27] MEDS ORDERED: FUROSEMIDE 40 MG/4 ML VIAL IV SCH (09:00)
[2022-12-27] MEDS: TRAMADOL HCL 50 MG TAB PO PRN ×3 (09:33→23:27)
--- NOTE | 2022-12-27 15:35 | EKG ---
Test Date: 2022-12-24 Test Time: 20:02:23 Drafter Topographical: JOE MEASUREMENT RESULTS: Intervals: Rate: 74 WV: 196 QRSD: 168 QT: 482 QTc: 535 [place]: P: 27 WV: 196 QRS: -83 T: 61 INTERPRETIVE STATEMENTS: Atrial-sensed ventricular-paced rhythm Abnormal ECG Compared to ECG 04/19/2022 17:54:57 AV dual-paced complex(es) or rhythm no longer present Electronically Signed On 12-27-22 15:31:33 CDT by Ej Abebe
--- NOTE | 2022-12-27 16:03 | PN ---
Date of Progress Note: 12/27/2022 Subjective: Seen by bedside, doing well. Her symptoms have improved. Still with some cough and mil d shortness of breath. Denies having any nausea, vomiting, or diaphoresis. Physical Examination: Vital Signs: Temperature is 98.1, pulse 67, breathing at 16, blood pressure 133/67, saturating 98% o n room air. General: Pleasant middle-aged female, in no apparent distress. Head and Neck: Pupils are equal, reactive to light. Intact eye movements. No JVD. No cervical lym phadenopathy. Neck is supple. Thyroid is not enlarged. Lungs: Decreased breathing sounds with rhonchi and no accessory muscle use or muscle retraction. Heart: Regular rate and rhythm. No extra sounds. Abdomen: Soft, nontender. Bowel sounds positive. No organomegaly. No masses or hernia. No rigidi ty or rebound. Extremities: No clubbing or cyanosis. Intact pulses. Skin: No rash. Neurologic: Alert, awake, oriented x3. No acute focal deficits appreciated. Investigations: Her troponin peaked at 176. BUN 30, creatinine 1.43, hemoglobin is 10.3, white bloo d cell count is 18.5. Assessment And Recommendations: 1.Shortness of breath, likely due to pneumonia. I do not see a component of congestive heart failur e at this time and I held the Lasix. Keep Lasix on hold and continue current treatment for pneumonia . 2.Elevated troponin, probably demand. However, we will plan for a stress test to rule out ischemia as a cause of her symptoms. 3.Hypertension. Blood pressure is controlled. Continue current management. SR/MODL Voice ID: [id number] Report ID: [id number]
[2022-12-27] MEDS: ALPRAZOLAM 0.25 MG TABLET PO PRN (19:55)
[2022-12-27] MEDS: ACETAMINOPHEN 500 MG TAB PO PRN (19:55)
[2022-12-27] MEDS: ATORVASTATIN 40 MG TAB PO SCH (19:56)
[2022-12-27] MEDS: AMLODIPINE 5 MG TAB PO SCH (20:01)
--- NOTE | 2022-12-28 05:18 | P.PN ---
Subjective Date of Service: 12/27/22 Patient is doing well no new complaints. Minimal infiltrates on CT scan. Patient with leukocytosis. We will continue to monitor white count. Scheduled for stress test in a.m. for elevated troponin. Cardiology input appreciated. Review of Systems 10-point ROS is otherwise unremarkable Physical Examination - Vital Signs Temperature: 96.9 F Blood Pressure: 157/67 Pulse: 61 Respirations: 16 Pulse Ox (%): 94 - Physical Exam General: Alert, In no apparent distress, Oriented x3 HEENT: Atraumatic, PERRLA, EOMI Neck: Supple, JVD not distended Respiratory: Clear to auscultation bilaterally, Normal air movement Cardiovascular: Regular rate/rhythm, Normal S1 S2 Gastrointestinal: Normal bowel sounds, No tenderness Musculoskeletal: No tenderness Integumentary: No rashes Neurological: Normal speech, Normal tone, Normal affect Lymphatics: No axilla or inguinal lymphadenopathy - Studies Medications List Reviewed: Yes Assessment & Plan - Problems (Diagnosis) (1) Pneumonia, community acquired Current Visit: Yes Status: Acute (2) NSTEMI (non-ST elevated myocardial infarction) Current Visit: Yes Status: Acute (3) CKD (chronic kidney disease), stage III Current Visit: No Status: Chronic Qualifiers: Chronic kidney disease stage 3 subtype: stage 3a (GFR 45-59) Qualified Code(s): N18.31 - Chronic kidney disease, stage 3a (4) Depressive disorder Current Visit: No Status: Chronic (5) Diabetes mellitus type II, non insulin dependent Onset Date: 07/15/15 Current Visit: No Status: Chronic (6) Hyperlipidemia Current Visit: No Status: Chronic Qualifiers: Hyperlipidemia type: unspecified Qualified Code(s): E78.5 - Hyperlipidemia, unspecified (7) Hypertension Current Visit: No Status: Chronic Qualifiers: Hypertension type: primary hypertension Qualified Code(s): I10 - Essential (primary) hypertension (8) Obesity (BMI 30.0-34.9) Current Visit: No Status: Chronic - Plan Plan: 1. Continue with IV antibiotics 2. Awaiting culture 3. Stress test in the AM; continue with statin and aspirin; monitor hemodynamics 4. Appreciate Cardiology consultation 6. Continue with nebs as needed 7. O2 per protocol 8. Strict blood pressure and blood sugar control 9. Repeat labs; monitor renal function 10. GI and DVT prophylaxis Discharge Plan: Home Plan to discharge in: 48 Hours - Advance Directives Does patient have a Living Will: No Does patient have a Durable POA for Healthcare: No - Code Status/Comfort Care Code Status: Full Code Physician Review: Patient Assessed, Agree with Above Assessment and Plan Critical Care: No Time Spent Managing PTS Care (In Minutes): 35
[2022-12-28 06:49] LABS: Absolute Lymphocytes (CBC) 4.5 K/uL (0.7-4.9); Hematocrit 35.2 % (36.0-45.0); Lymphocytes % 33.4 % (15.3-44.8); MCV 101.7 fL (80-100); MPV 7.8 fL (7.6-11.3); Platelets 415 thou/uL (152-406); RBC Red Blood Cell Count 3.46 M/uL (3.86-4.86)
[2022-12-28 07:04] LABS: Albumin 3.1 g/dL (3.4-5.0); Bilirubin Total 0.4 mg/dL (0.2-1.0); Magnesium 2.2 mg/dL (1.6-2.4); Potassium 4.3 mEq/L (3.5-5.1); Protein, Total 7.1 g/dL (6.4-8.2)
[2022-12-28] MEDS: INSULIN -REGULAR HUMAN 50 UNIT/0.5 ML ML SQ SCH ×4 (07:30→21:00)
[2022-12-28] MEDS ORDERED: REGADENOSON 0.4 MG/5 ML SYR IV ONE (07:34)
[2022-12-28 07:52] LABS: Blood Morphology Comment NOTED (NOT SEEN); Platelet Estimate ADEQ; Target Cells FEW; White Blood Cell Scan OK (OK)
[2022-12-28 07:53] LABS: Rouleau NOTED; Stomatocytes 1+
[2022-12-28] MEDS: SPIRONOLACTONE 25 MG TABLET PO SCH (08:22)
[2022-12-28] MEDS: PANTOPRAZOLE 40MG TABLET PO SCH ×2 (08:22→16:14)
[2022-12-28] MEDS: ASPIRIN 81 MG CHEWABLE TABLET PO SCH (08:22)
[2022-12-28] MEDS: carvediloL 3.125 MG TAB PO SCH ×2 (08:22→21:11)
[2022-12-28] MEDS: allopurinoL 100 MG TAB PO SCH (08:22)
[2022-12-28] MEDS: CEFTRIAXONE 1,000 MG in NA CHLORIDE 0.9% 50 ML IVPB SCH (08:23)
[2022-12-28] MEDS: DULERA 200/5 (MOMETASONE/FORMOTEROL) INHALER IH SCH ×2 (08:25→21:15)
--- NOTE | 2022-12-28 09:42 | P.PN ---
Subjective Date of Service: 12/28/22 Chief Complaint: Shortness of breath No acute events overnight. She reports shortness of breath, worse with exertion. She denies any chest pain or palpitations. Plan for nuclear stress test later today. Review of Systems 10-point ROS is otherwise unremarkable Respiratory: Shortness of Breath Physical Examination - Vital Signs Temperature: 97.0 F Blood Pressure: 137/71 Pulse: 62 Respirations: 14 Pulse Ox (%): 99 - Physical Exam General: Alert, In no apparent distress, Oriented x3 HEENT: Atraumatic, Mucous membr. moist/pink, Sclerae nonicteric Neck: JVD not distended Respiratory: Diminished, Rhonchi/gurgles (faint, basilar) Cardiovascular: No edema, Regular rate/rhythm, Normal S1 S2, No gallops, No rubs, No murmurs Gastrointestinal: Normal bowel sounds, Soft and benign, Non-distended, No tenderness, No rebound, No guarding Musculoskeletal: No clubbing Integumentary: No rashes Neurological: Normal speech, Normal affect - Studies Medications List Reviewed: Yes Assessment And Plan - Plan # Possible Septic Shock secondary to Community-Acquired Pneumonia - improved She met SIRS criteria based on HR > 90 bpm and WBC > 12,000, and the suspected source is pulmonary. Septic shock was suspected due to lactate > 4 mmol/L. - Sepsis order set was initiated - Lactate trend: 3.9 -> 5.9 -> 1.8 - Blood cultures drawn - Broad spectrum antibiotics started: Ceftriaxone - In regards to fluids: - 30 mL/kg of IV fluids was not administered given due to SBP > 90 - CT chest angiogram = "1. Motion artifact degrades image quality and limits evaluation of segmental and subsegmental vessels. No central or proximal segmental pulmonary embolic disease. 2. Small left and trace right pleural effusions. Mild left basilar consolidation (atelectasis and/or infiltrate)." # Non-ST Segment Elevation Myocardial Infarction # Chronic Compensated Congestive Heart Failure with Preserved Ejection Fraction # Hypertension # Hyperlipidemia - Evaluation thus far: - EKG: without STEMI criteria - Serial troponin: 177.7 -> 176.5 -> 150.1 -> 157.0 -> 144.0 -> 164.8 - Transthoracic echocardiogram (04/20/2022) = "1. Low normal left ventricular ejection fraction 50-55% 2. severe mitral annular calcification with mild mitral regurgitation 3. calcified aortic valve with mild aortic stenosis 4. mild tric uspid regurgitation 5. moderate diastolic dysfunction 6. pulmonary hypertension with right ventricular systolic pressure 48 mmhg plus right atrial pressure" - Management plan: - Consult Cardiology - recommendations appreciated - Plan for nuclear stress test today - Continue aspirin, atorvastatin, carvedilol, spironolactone, enoxaparin - Consider ELIEZER-inhibitor/ARB as tolerated # KDIGO Stage I Acute Kidney Injury on Chronic Kidney Disease Stage III - resolved - Creatinine = 1.17 -> 1.49 -> 1.48 -> 1.12 - Urinalysis = unremarkable - Monitor creatinine and urine output - If worsening, obtain renal ultrasound - Renally dose medications # Type II Diabetes Mellitus - Correction scale insulin # Obesity - BMI 35.8 kg/m2 # Small Hiatal Hernia - Follow-up as an outpatient Wale Alvarado M.D.
[2022-12-28] MEDS: ENOXAPARIN 100 MG/ML SYR SQ SCH ×2 (11:03→21:11)
--- NOTE | 2022-12-28 11:41 | P.PN ---
Date of Service: 12/28/22 Vital Signs Temp Pulse Resp BP Pulse Ox 97.0 F 62 14 137/71 99 12/28/22 10:07 12/28/22 10:07 12/28/22 10:07 12/28/22 10:07 12/28/22 10:07 Medications Acetaminophen (Acetaminophen 500 Mg Tab) 500 mg PO Q4HP PRN PRN Reason: Pain scale 2-4 (Mild) Last Admin: 12/27/22 19:55 Dose: 500 mg Albuterol Sulfate (Albuterol 2.5 Mg/3 Ml Neb Zulay) 2.5 mg NEB [id number] PRN PRN Reason: SHORTNESS OF BREATH Allopurinol (Allopurinol 100 Mg Tab) 100 mg PO DAILY [facility] Last Admin: 12/28/22 08:22 Dose: 100 mg Alprazolam (Alprazolam 0.25 Mg Tablet) 0.25 mg PO BEDTIME PRN PRN PRN Reason: INSOMNIA Last Admin: 12/27/22 19:55 Dose: 0.25 mg Amlodipine Besylate (Amlodipine 5 Mg Tab) 5 mg PO BEDTIME [facility] Last Admin: 12/27/22 20:01 Dose: 5 mg Aspirin (Aspirin 81 Mg Chewable Tablet) 81 mg PO DAILY [facility] Last Admin: 12/28/22 08:22 Dose: 81 mg Atorvastatin Calcium (Atorvastatin 40 Mg Tab) 40 mg PO BEDTIME [facility] Last Admin: 12/27/22 19:56 Dose: 40 mg Carvedilol (Carvedilol 3.125 Mg Tab) 3.125 mg PO BID [facility] Last Admin: 12/28/22 08:22 Dose: 3.125 mg Enoxaparin Sodium (Enoxaparin 100 Mg/Ml Syr) 100 mg SQ Q12H [facility] Last Admin: 12/28/22 11:03 Dose: 100 mg Glucagon (Glucagon 1 Mg/Vial) 1 mg IM 1X PRN; Protocol PRN Reason: HYPOGLYCEMIA Dextrose (Dextrose 10% Water Iv Soln.) 125 mls @ 0 mls/hr IV PRN PRN; Protocol PRN Reason: HYPOGLYCEMIA Ceftriaxone Sodium 1,000 mg/ (Sodium Chloride) 50 mls @ 100 mls/hr IVPB DAILY [facility]; Protocol Last Admin: 12/28/22 08:23 Dose: 50 mls Insulin Human Regular (Insulin -Regular Human 50 Unit/0.5 Ml Ml) 0 unit SQ ACHS [facility]; Protocol Last Admin: 12/28/22 11:24 Dose: Not Given Ondansetron HCl (Ondansetron 4 Mg/2 Ml Vial) 4 mg IV Q6HP PRN PRN Reason: NAUSEA / VOMITING Pantoprazole Sodium (Pantoprazole 40mg Tablet) 40 mg PO BIDAC [facility]; Protocol Last Admin: 12/28/22 08:22 Dose: 40 mg Sodium Chloride (Flush Normal Saline 10 Ml) 10 ml IV BID [facility] Last Admin: 12/28/22 08:23 Dose: 10 ml Spironolactone (Spironolactone 25 Mg Tablet) 25 mg PO DAILY [facility] Last Admin: 12/28/22 08:22 Dose: 25 mg Tramadol HCl (Tramadol Hcl 50 Mg Tab) 50 mg PO TID PRN PRN Reason: Pain scale 8-10 (Severe) Last Admin: 12/27/22 23:27 Dose: 50 mg Assessment/ Plan: Nephrology No dyspnea No chest pain Feeling better No acute events overnight Vitals, medications, blood work and imaging reviewed in the chart. NAD. NCAT. MMM. Neck supple. Normal respiratory effort. RRR. Abd ND. No C/C. LE Edema trace. No rash. AAO. Normal speech. CKD III -No NSAIDs HTN with CKD/ CHF -Continue Amlodipine Diastolic CHF, A/C Pulmonary HTN -Continue spironolactone DM II with CKD -RISS Anemia in chronic illness -Monitor H&H Case reviewed with Dr. Alvarado Hospitalist note reviewed
[2022-12-28] MEDS ORDERED: NA CHLORIDE 0.9% 500 ML ONE ×2 (14:15→14:39)
[2022-12-28] MEDS ORDERED: NITROGLYCERIN 0.4 MG/TAB SL ONE (14:38)
--- NOTE | 2022-12-28 14:55 | RAD REPORT ---
EXAM DESCRIPTION: NM - Rest Stress Cardiac Imaging - 12/28/2022 2:39 pm CLINICAL HISTORY: elevated troponin Chest pain. COMPARISON: <Comparisons> TECHNIQUE: The patient was administered approximately 10mCi of Tc 99m Sestamibi prior to resting SPE CT imaging of the heart. The patient was then administered approximately 30 mCi of Tc 99m Sestamibi f ollowing exercise or pharmacologic stress. Multiplanar SPECT images were reviewed. FINDINGS: Moderate sized area of diminished radiopharmaceutical accumulation is noted LV apex with b oth rest and stress suggesting scar myocardium from prior infarction. Definitive finding to indicate stress-induced ischemia. The end diastolic volume is 74 ml, the end systolic volume is 34 ml, and the ejection fraction is 54. %. IMPRESSION: Moderate sized area of scarring suspected LV apex. This is likely related to a prior inf arct. No finding to indicate stress-induced ischemia.
[2022-12-28] MEDS: TRAMADOL HCL 50 MG TAB PO PRN (17:26)
--- NOTE | 2022-12-28 19:21 | PN ---
Date of Progress Note: 12/28/2022 Subjective: Seen by bedside. Does not have any chest pain. Cough has improved. Review of Systems: No chest pain, nausea, vomiting, diarrhea. No dysuria, polyuria, or urinary urgency. All other syst ems reviewed and they were negative. Physical Examination: Vital Signs: Reviewed. Head and Neck: Pupils are equal, reactive to light. Intact eye movements. No JVD. No cervical lym phadenopathy. Neck is supple. Thyroid is not enlarged. Lungs: Clear to auscultation bilaterally. No rhonchi, wheezing, or crackles. No accessory muscle u se. Heart: Irregular. No extra sounds. Abdomen: Soft, nontender. Bowel sounds positive. No organomegaly. No masses or hernia. No rigidi ty or rebound. Extremities: No edema, clubbing, or cyanosis. Intact pulses. Skin: No rash. Neurologic: Alert, awake, oriented x3. No acute focal deficits appreciated. Investigations: BUN 22, creatinine 1.2, and hemoglobin 11.6. Assessment And Recommendations: 1.Elevated troponin. I did a stress test on her and no stress induced ischemia. Likely, this is de jaime. Can discontinue the Lovenox from the Cardiology standpoint. 2.Shortness of breath, likely due to the pneumonia mainly. I do not see any signs of fluid overload at the present time. Continue IV antibiotics. 3.Hypertension. Blood pressure is controlled. Continue current therapy. SR/MODL Voice ID: [id number] Report ID: [id number]
[2022-12-28] MEDS: ALPRAZOLAM 0.25 MG TABLET PO PRN (21:10)
[2022-12-28] MEDS: AMLODIPINE 5 MG TAB PO SCH (21:11)
[2022-12-28] MEDS: ATORVASTATIN 40 MG TAB PO SCH (21:11)
[2022-12-29] MEDS: TRAMADOL HCL 50 MG TAB PO PRN (05:03)
[2022-12-29 06:34] VITALS: BMI 35.6
[2022-12-29 06:35] LABS: Absolute Lymphocytes (CBC) 3.9 K/uL (0.7-4.9); Hematocrit 34.9 % (36.0-45.0); Lymphocytes % 27.9 % (15.3-44.8); MCV 100.8 fL (80-100); MPV 8.2 fL (7.6-11.3); Platelets 470 thou/uL (152-406); RBC Red Blood Cell Count 3.46 M/uL (3.86-4.86)
[2022-12-29 07:02] LABS: Potassium 4.6 mEq/L (3.5-5.1)
[2022-12-29] MEDS: ENOXAPARIN 40 MG/0.4 ML SQ SCH (08:42)
[2022-12-29] MEDS: DULERA 200/5 (MOMETASONE/FORMOTEROL) INHALER IH SCH ×2 (08:42→19:56)
[2022-12-29] MEDS: PANTOPRAZOLE 40MG TABLET PO SCH ×2 (08:42→16:41)
[2022-12-29] MEDS: ASPIRIN 81 MG CHEWABLE TABLET PO SCH (08:42)
[2022-12-29] MEDS: SPIRONOLACTONE 25 MG TABLET PO SCH (08:42)
[2022-12-29] MEDS: CEFTRIAXONE 1,000 MG in NA CHLORIDE 0.9% 50 ML IVPB SCH (08:42)
[2022-12-29] MEDS: carvediloL 3.125 MG TAB PO SCH ×2 (08:42→19:55)
[2022-12-29] MEDS: allopurinoL 100 MG TAB PO SCH (08:42)
[2022-12-29] MEDS: INSULIN -REGULAR HUMAN 50 UNIT/0.5 ML ML SQ SCH ×4 (08:43→21:00)
--- NOTE | 2022-12-29 08:52 | TREADPHA ---
DX: ELEVATED TROPONIN Date of Study: 12/25/2022 Ht: 5' 8 " Wt: 234 lb 0 oz Consulting Physician: BLAYNE MEDICATIONS: TYLENOL, PROVENTIL, ZYLOPRIM, XANAX, NORVASC, ASPIRIN, LIPITOR, COREG, LOVENOX, GLUCAGEN, NOVOLIN-R, ZOFRAN, PROTONIX, ALDACTONE, ULTRAM HISTORY: 62 YEAR OLD FEMALE WITH COMPLAINTS OF SHORTNESS OF BREATH. HISTORY OF DIABETES MELLITUS, HYPERTENSION, HYPERLIPIDEMIA, CHRONIC PAIN, IRRITABLE BOWEL SYNDROME, CONSTIPATION, NON SMOKER, NON DRINKER. PHYSICIAL EXAMINATION: RESTING B.P.: 123/75 RESTING H.R.: 66 RESTING EKG: PACED PROTOCOL: PHARMACOLOGIC EXERCISE TIME: 3:30 B.P. AT [facility]AK STRESS: 114/68 IMPRESSION: LEXISCAN INJECTED, FOLLOWED BY CARDIOLITE PER PROTOCOL. SEE NUCLEAR MEDICINE REPORT. NO SUPRAVENTRICULAR TACHYCARDIA, VENTRICULAR TACHYCARDIA, PREMATURE ATRIAL COMPLEXES, PREMATURE VENTRICULAR COMPLEXES. PATIENT REPORTS CHEST PAIN SIX OUT OF TEN IN RECOVERY. 0.4 MILLIGRAMS NITRO SUBLINGUAL. 250 CUBIC CENTIMETERS NORMAL SALINE BOLUS. CHEST PAIN DECREASED TO THREE OUT OF TEN. DOCTOR BLAYNE NOTIFIED. ELECTROCARDIOGRAM IS NON-DIAGNOSTIC DUE TO ABNORMAL BASELINE.
[2022-12-29] MEDS: ACETAMINOPHEN 500 MG TAB PO PRN (10:00)
--- NOTE | 2022-12-29 11:19 | RAD REPORT ---
EXAM DESCRIPTION: Nichole Single View12/29/2022 11:12 am CLINICAL HISTORY: Chest pain COMPARISON: December 24, 2022 FINDINGS: No significant change in the left basilar atelectasis and small left pleural effusion. Right lung appears clear. Heart is mildly enlarged. Pacemaker leads in place
--- NOTE | 2022-12-29 11:21 | RAD REPORT ---
EXAM DESCRIPTION: RAD - Abdomen 1 View (KUB) - 12/29/2022 11:12 am CLINICAL HISTORY: Abdomen pain FINDINGS: The bowel gas pattern is unremarkable. 13 millimeter calcification right pelvis probably calcified uterine fibroid Radiopaque density posterior tissues of the back midline
[2022-12-29] MEDS: ONDANSETRON 4 MG/2 ML VIAL IV PRN ×2 (13:16→19:50)
[2022-12-29] MEDS: ALPRAZOLAM 0.25 MG TABLET PO PRN (19:53)
[2022-12-29] MEDS: AMLODIPINE 5 MG TAB PO SCH (19:55)
--- NOTE | 2022-12-29 20:11 | P.PN ---
Date of Service: 12/29/22 Vital Signs Temp Pulse Resp BP Pulse Ox 97.7 F 62 16 139/58 L 99 12/29/22 16:00 12/29/22 16:00 12/29/22 16:00 12/29/22 16:00 12/29/22 16:00 Medications Acetaminophen (Acetaminophen 500 Mg Tab) 500 mg PO Q4HP PRN PRN Reason: Pain scale 2-4 (Mild) Last Admin: 12/29/22 10:00 Dose: 500 mg Albuterol Sulfate (Albuterol 2.5 Mg/3 Ml Neb Zulay) 2.5 mg NEB [id number] PRN PRN Reason: SHORTNESS OF BREATH Allopurinol (Allopurinol 100 Mg Tab) 100 mg PO DAILY [facility] Last Admin: 12/29/22 08:42 Dose: 100 mg Alprazolam (Alprazolam 0.25 Mg Tablet) 0.25 mg PO BEDTIME PRN PRN PRN Reason: INSOMNIA Last Admin: 12/29/22 19:53 Dose: 0.25 mg Amlodipine Besylate (Amlodipine 5 Mg Tab) 5 mg PO BEDTIME [facility] Last Admin: 12/29/22 19:55 Dose: 5 mg Aspirin (Aspirin 81 Mg Chewable Tablet) 81 mg PO DAILY [facility] Last Admin: 12/29/22 08:42 Dose: 81 mg Atorvastatin Calcium (Atorvastatin 40 Mg Tab) 40 mg PO BEDTIME [facility] Last Admin: 12/28/22 21:11 Dose: 40 mg Carvedilol (Carvedilol 3.125 Mg Tab) 3.125 mg PO BID [facility] Last Admin: 12/29/22 19:55 Dose: 3.125 mg Enoxaparin Sodium (Enoxaparin 40 Mg/0.4 Ml) 40 mg SQ DAILY [facility] Last Admin: 12/29/22 08:42 Dose: 40 mg Glucagon (Glucagon 1 Mg/Vial) 1 mg IM 1X PRN; Protocol PRN Reason: HYPOGLYCEMIA Dextrose (Dextrose 10% Water Iv Soln.) 125 mls @ 0 mls/hr IV PRN PRN; Protocol PRN Reason: HYPOGLYCEMIA Ceftriaxone Sodium 1,000 mg/ (Sodium Chloride) 50 mls @ 100 mls/hr IVPB DAILY [facility]; Protocol Last Admin: 12/29/22 08:42 Dose: 50 mls Insulin Human Regular (Insulin -Regular Human 50 Unit/0.5 Ml Ml) 0 unit SQ ACHS [facility]; Protocol Last Admin: 12/29/22 16:41 Dose: 3 unit Ondansetron HCl (Ondansetron 4 Mg/2 Ml Vial) 4 mg IV Q6HP PRN PRN Reason: NAUSEA / VOMITING Last Admin: 12/29/22 19:50 Dose: 4 mg Pantoprazole Sodium (Pantoprazole 40mg Tablet) 40 mg PO BIDAC [facility]; Protocol Last Admin: 12/29/22 16:41 Dose: 40 mg Sodium Chloride (Flush Normal Saline 10 Ml) 10 ml IV BID [facility] Last Admin: 12/29/22 19:56 Dose: 10 ml Spironolactone (Spironolactone 25 Mg Tablet) 25 mg PO DAILY [facility] Last Admin: 12/29/22 08:42 Dose: 25 mg Tramadol HCl (Tramadol Hcl 50 Mg Tab) 50 mg PO TID PRN PRN Reason: Pain scale 8-10 (Severe) Last Admin: 12/29/22 05:03 Dose: 50 mg Assessment/ Plan: Nephrology No dyspnea No chest pain Nausea this morning No acute events overnight Vitals, medications, blood work and imaging reviewed in the chart. NAD. NCAT. MMM. Neck supple. Normal respiratory effort. RRR. Abd ND. No C/C. LE Edema trace. No rash. AAO. Normal speech. CKD III -No NSAIDs HTN with CKD/ CHF -Continue Amlodipine -Continue Coreg Diastolic CHF, A/C Pulmonary HTN -Continue spironolactone DM II with CKD -RISS Anemia in chronic illness -Monitor H&H Case reviewed with Dr. Alvarado Hospitalist note reviewed
--- NOTE | 2022-12-29 20:28 | P.PN ---
Subjective Date of Service: 12/29/22 Chief Complaint: Shortness of breath No acute events overnight. She reports that her breathing seems to be improving. This morning, she has been experiencing some abdominal cramping. She denies any chest pain or palpitations. Review of Systems 10-point ROS is otherwise unremarkable Gastrointestinal: Abdominal Pain (cramping) Physical Examination - Vital Signs Temperature: 97.7 F Blood Pressure: 139/58 Pulse: 62 Respirations: 16 Pulse Ox (%): 99 - Studies Medications List Reviewed: Yes Assessment And Plan - Plan - Physical Exam General: Alert, In no apparent distress, Oriented x3 HEENT: Atraumatic, Mucous membr. moist/pink, Sclerae nonicteric Neck: JVD not distended Respiratory: Diminished, Rhonchi/gurgles (faint, basilar) Cardiovascular: No edema, Regular rate/rhythm, No murmurs Gastrointestinal: Normal bowel sounds, Soft, Non-distended, No tenderness Musculoskeletal: No clubbing Integumentary: No rashes Neurological: Normal speech, Normal affect # Possible Septic Shock secondary to Community-Acquired Pneumonia - improved She met SIRS criteria based on HR > 90 bpm and WBC > 12,000, and the suspected source is pulmonary. Septic shock was suspected due to lactate > 4 mmol/L. - Sepsis order set was initiated - Lactate trend: 3.9 -> 5.9 -> 1.8 - Blood cultures drawn - Broad spectrum antibiotics started: Ceftriaxone - In regards to fluids: - 30 mL/kg of IV fluids was not administered given due to SBP > 90 - CT chest angiogram = "1. Motion artifact degrades image quality and limits evaluation of segmental and subsegmental vessels. No central or proximal segmental pulmonary embolic disease. 2. Small left and trace right pleural effusions. Mild left basilar consolidation (atelectasis and/or infiltrate)." Surveillance chest x-ray ordered for this morning. Appreciate Pulmonology recommendations # Non-ST Segment Elevation Myocardial Infarction # Chronic Compensated Congestive Heart Failure with Preserved Ejection Fraction # Hypertension # Hyperlipidemia - Evaluation thus far: - EKG: without STEMI criteria - Serial troponin: 177.7 -> 176.5 -> 150.1 -> 157.0 -> 144.0 -> 164.8 - Transthoracic echocardiogram (04/20/2022) = "1. Low normal left ventricular ejection fraction 50-55% 2. severe mitral annular calcification with mild mitral regurgitation 3. calcified aortic valve with mild aortic stenosis 4. mild tricuspid regurgitation 5. moderate diastolic dysfunction 6. pulmonary hypertension with right ventricular systolic pressure 48 mmhg plus right atrial pressure" - Management plan: - Consult Cardiology and spoke with Dr. Abebe - recommendations appreciated - Nuclear stress test = "moderate sized area of scarring suspected LV apex. This is likely related to a prior infarct. No finding to indicate stress- induced ischemia." - He has cleared her for discharge from a cardiac standpoint - Continue aspirin, atorvastatin, carvedilol, spironolactone, enoxaparin - Consider ELIEZER-inhibitor/ARB as tolerated # KDIGO Stage I Acute Kidney Injury on Chronic Kidney Disease Stage III - resolved - Creatinine = 1.17 -> 1.49 -> 1.48 -> 1.12 - Urinalysis = unremarkable - Monitor creatinine and urine output - If worsening, obtain renal ultrasound - Renally dose medications # Type II Diabetes Mellitus - Correction scale insulin # Obesity - BMI 35.8 kg/m2 # Small Hiatal Hernia - Follow-up as an outpatient Wale Alvarado M.D.
[2022-12-29] MEDS: ATORVASTATIN 40 MG TAB PO SCH (21:00)
[2022-12-30] MEDS: TRAMADOL HCL 50 MG TAB PO PRN ×2 (01:00→11:35)
[2022-12-30 08:40] LABS: Absolute Lymphocytes (CBC) 3.1 K/uL (0.7-4.9); Hematocrit 35.7 % (36.0-45.0); Lymphocytes % 26.6 % (15.3-44.8); MCV 101.2 fL (80-100); MPV 7.9 fL (7.6-11.3); Platelets 488 thou/uL (152-406); RBC Red Blood Cell Count 3.52 M/uL (3.86-4.86)
[2022-12-30] MEDS: ENOXAPARIN 40 MG/0.4 ML SQ SCH (09:00)
[2022-12-30] MEDS: CEFTRIAXONE 1,000 MG in NA CHLORIDE 0.9% 50 ML IVPB SCH (09:00)
[2022-12-30] MEDS: DULERA 200/5 (MOMETASONE/FORMOTEROL) INHALER IH SCH ×2 (09:01→20:05)
[2022-12-30] MEDS: carvediloL 3.125 MG TAB PO SCH ×2 (09:01→20:00)
[2022-12-30] MEDS: allopurinoL 100 MG TAB PO SCH (09:01)
[2022-12-30] MEDS: PANTOPRAZOLE 40MG TABLET PO SCH ×2 (09:01→16:55)
[2022-12-30] MEDS: SPIRONOLACTONE 25 MG TABLET PO SCH (09:01)
[2022-12-30] MEDS: ASPIRIN 81 MG CHEWABLE TABLET PO SCH (09:01)
[2022-12-30] MEDS: INSULIN -REGULAR HUMAN 50 UNIT/0.5 ML ML SQ SCH ×4 (09:02→20:01)
[2022-12-30 09:47] LABS: Potassium 4.6 mEq/L (3.5-5.1)
[2022-12-30] MEDS: ONDANSETRON 4 MG/2 ML VIAL IV PRN (15:38)
[2022-12-30] MEDS: ATORVASTATIN 40 MG TAB PO SCH (19:59)
--- NOTE | 2022-12-30 19:59 | P.PN ---
Subjective Date of Service: 12/30/22 Chief Complaint: Shortness of breath No acute events overnight. She reports that her breathing seems to be improving; however, she endorses significant shortness of breath with exertion. She is concerned for her ability to ambulate given her significant dyspnea on exertion. PT consulted for further evaluation. She denies any chest pain or palpitations. Review of Systems 10-point ROS is otherwise unremarkable Respiratory: SOB with Excertion Physical Examination - Vital Signs Temperature: 97.4 F Blood Pressure: 126/64 Pulse: 68 Respirations: 15 Pulse Ox (%): 98 - Studies Medications List Reviewed: Yes Assessment And Plan - Plan - Physical Exam General: Alert, In no apparent distress, Oriented x3 HEENT: Atraumatic, Mucous membr. moist/pink, Sclerae nonicteric Neck: JVD not distended Respiratory: Diminished, Rhonchi/gurgles (faint, basilar) Cardiovascular: No edema, Regular rate/rhythm, No murmurs Gastrointestinal: Normal bowel sounds, Soft, Non-distended, No tenderness Musculoskeletal: No clubbing Integumentary: No rashes Neurological: Normal speech, Normal affect # Possible Septic Shock secondary to Community-Acquired Pneumonia - improved She met SIRS criteria based on HR > 90 bpm and WBC > 12,000, and the suspected source is pulmonary. Septic shock was suspected due to lactate > 4 mmol/L. - Sepsis order set was initiated - Lactate trend: 3.9 -> 5.9 -> 1.8 - Blood cultures drawn - Broad spectrum antibiotics started: Ceftriaxone - In regards to fluids: - 30 mL/kg of IV fluids was not administered given due to SBP > 90 - CT chest angiogram = "1. Motion artifact degrades image quality and limits evaluation of segmental and subsegmental vessels. No central or proximal segmental pulmonary embolic disease. 2. Small left and trace right pleural effusions. Mild left basilar consolidation (atelectasis and/or infiltrate)." - Consulted PT due to her concern for deconditioning and dyspnea on exertion # Non-ST Segment Elevation Myocardial Infarction # Chronic Compensated Congestive Heart Failure with Preserved Ejection Fraction # Hypertension # Hyperlipidemia - Evaluation thus far: - EKG: without STEMI criteria - Serial troponin: 177.7 -> 176.5 -> 150.1 -> 157.0 -> 144.0 -> 164.8 - Transthoracic echocardiogram (04/20/2022) = "1. Low normal left ventricular ejection fraction 50-55% 2. severe mitral annular calcification with mild mitral regurgitation 3. calcified aortic valve with mild aortic stenosis 4. mild tricuspid regurgitation 5. moderate diastolic dysfunction 6. pulmonary hypertension with right ventricular systolic pressure 48 mmhg plus right atrial pressure" - Management plan: - Consult Cardiology and spoke with Dr. Abebe - recommendations appreciated - Nuclear stress test = "moderate sized area of scarring suspected LV apex. This is likely related to a prior infarct. No finding to indicate stress- induced ischemia." - He has cleared her for discharge from a cardiac standpoint - Continue aspirin, atorvastatin, carvedilol, spironolactone, enoxaparin - Consider ELIEEZR-inhibitor/ARB as tolerated # KDIGO Stage I Acute Kidney Injury on Chronic Kidney Disease Stage III - resolved - Creatinine = 1.17 -> 1.49 -> 1.48 -> 1.12 - Urinalysis = unremarkable - Monitor creatinine and urine output - If worsening, obtain renal ultrasound - Renally dose medications # Type II Diabetes Mellitus - Correction scale insulin # Obesity - BMI 35.8 kg/m2 # Small Hiatal Hernia - Follow-up as an outpatient Wale Alvarado M.D.
[2022-12-30] MEDS: AMLODIPINE 5 MG TAB PO SCH (20:00)
--- NOTE | 2022-12-30 21:32 | P.PN ---
Date of Service: 12/30/22 Vital Signs Temp Pulse Resp BP Pulse Ox 97.3 F 66 17 139/68 99 12/30/22 20:00 12/30/22 20:00 12/30/22 20:00 12/30/22 20:00 12/30/22 20:00 Medications Acetaminophen (Acetaminophen 500 Mg Tab) 500 mg PO Q4HP PRN PRN Reason: Pain scale 2-4 (Mild) Last Admin: 12/29/22 10:00 Dose: 500 mg Albuterol Sulfate (Albuterol 2.5 Mg/3 Ml Neb Zulay) 2.5 mg NEB [id number] PRN PRN Reason: SHORTNESS OF BREATH Allopurinol (Allopurinol 100 Mg Tab) 100 mg PO DAILY [facility] Last Admin: 12/30/22 09:01 Dose: 100 mg Alprazolam (Alprazolam 0.25 Mg Tablet) 0.25 mg PO BEDTIME PRN PRN PRN Reason: INSOMNIA Last Admin: 12/29/22 19:53 Dose: 0.25 mg Amlodipine Besylate (Amlodipine 5 Mg Tab) 5 mg PO BEDTIME [facility] Last Admin: 12/30/22 20:00 Dose: 5 mg Aspirin (Aspirin 81 Mg Chewable Tablet) 81 mg PO DAILY [facility] Last Admin: 12/30/22 09:01 Dose: 81 mg Atorvastatin Calcium (Atorvastatin 40 Mg Tab) 40 mg PO BEDTIME [facility] Last Admin: 12/30/22 19:59 Dose: 40 mg Carvedilol (Carvedilol 3.125 Mg Tab) 3.125 mg PO BID [facility] Last Admin: 12/30/22 20:00 Dose: 3.125 mg Enoxaparin Sodium (Enoxaparin 40 Mg/0.4 Ml) 40 mg SQ DAILY [facility] Last Admin: 12/30/22 09:00 Dose: 40 mg Glucagon (Glucagon 1 Mg/Vial) 1 mg IM 1X PRN; Protocol PRN Reason: HYPOGLYCEMIA Dextrose (Dextrose 10% Water Iv Soln.) 125 mls @ 0 mls/hr IV PRN PRN; Protocol PRN Reason: HYPOGLYCEMIA Insulin Human Regular (Insulin -Regular Human 50 Unit/0.5 Ml Ml) 0 unit SQ ACHS [facility]; Protocol Last Admin: 12/30/22 20:01 Dose: 5 unit Ondansetron HCl (Ondansetron 4 Mg/2 Ml Vial) 4 mg IV Q6HP PRN PRN Reason: NAUSEA / VOMITING Last Admin: 12/30/22 15:38 Dose: 4 mg Pantoprazole Sodium (Pantoprazole 40mg Tablet) 40 mg PO BIDAC [facility]; Protocol Last Admin: 12/30/22 16:55 Dose: 40 mg Sodium Chloride (Flush Normal Saline 10 Ml) 10 ml IV BID [facility] Last Admin: 12/30/22 20:00 Dose: 10 ml Spironolactone (Spironolactone 25 Mg Tablet) 25 mg PO DAILY [facility] Last Admin: 12/30/22 09:01 Dose: 25 mg Tramadol HCl (Tramadol Hcl 50 Mg Tab) 50 mg PO TID PRN PRN Reason: Pain scale 8-10 (Severe) Last Admin: 12/30/22 11:35 Dose: 50 mg Assessment/ Plan: Nephrology No dyspnea No chest pain Cough with yellow sputum Epigastric pain Right knee pain with swelling No acute events overnight Vitals, medications, blood work and imaging reviewed in the chart. NAD. NCAT. MMM. Neck supple. Normal respiratory effort. RRR. Abd ND. No C/C. LE Edema trace. Right knee tenderness. No rash. AAO. Normal speech. CKD III -No NSAIDs HTN with CKD/ CHF -Continue Amlodipine -Continue Coreg Diastolic CHF, A/C Pulmonary HTN -Continue spironolactone DM II with CKD -RISS Anemia in chronic illness -Monitor H&H Case reviewed with Dr. Alvarado Hospitalist note reviewed
[2022-12-31 03:49] VITALS: O2SAT 93
[2022-12-31 06:26] LABS: Albumin 3.3 g/dL (3.4-5.0); Bilirubin Total 0.3 mg/dL (0.2-1.0); Protein, Total 7.5 g/dL (6.4-8.2); Uric Acid 5.4 mg/dL (2.6-6.0)
[2022-12-31] MEDS: SPIRONOLACTONE 25 MG TABLET PO SCH (08:28)
[2022-12-31] MEDS: allopurinoL 100 MG TAB PO SCH (08:28)
[2022-12-31] MEDS: ASPIRIN 81 MG CHEWABLE TABLET PO SCH (08:28)
[2022-12-31] MEDS: carvediloL 3.125 MG TAB PO SCH (08:28)
[2022-12-31] MEDS: ENOXAPARIN 40 MG/0.4 ML SQ SCH (08:29)
[2022-12-31] MEDS: DULERA 200/5 (MOMETASONE/FORMOTEROL) INHALER IH SCH (08:29)
[2022-12-31] MEDS: PANTOPRAZOLE 40MG TABLET PO SCH (08:29)
[2022-12-31] MEDS: INSULIN -REGULAR HUMAN 50 UNIT/0.5 ML ML SQ SCH ×2 (08:29→12:18)
[2022-12-31 08:30] VITALS: BP 144/75
[2022-12-31] MEDS ORDERED: SODIUM ZIRCONIUM CYCLOSILICATE 10 GM/PKT PO ONE (09:45)
[2022-12-31] MEDS: ONDANSETRON 4 MG/2 ML VIAL IV PRN (10:41)
--- NOTE | 2022-12-31 11:07 | P.DS ---
Admission Date: 12/25/22 Discharge Date: 12/31/22 Disposition: ROUTINE DISCHARGE Discharge Condition: GOOD Reason for Admission: Shortness of breath Consultations: 1. Cardiology 2. Nephrology 3. Pulmonology Hospital Course: DIAGNOSES: # Possible Septic Shock secondary to Community-Acquired Pneumonia - improved # Non-ST Segment Elevation Myocardial Infarction # KDIGO Stage I Acute Kidney Injury on Chronic Kidney Disease Stage III - resolved # Chronic Compensated Congestive Heart Failure with Preserved Ejection Fraction # Hypertension # Hyperlipidemia # Type II Diabetes Mellitus # Obesity - BMI 35.8 kg/m2 # Right Calcified Uterine Fibroid (13 mm) # Small Hiatal Hernia HOSPITAL COURSE: Ms. Destiny Salguero is a pleasant 62 year old female with a past medical history significant for diastolic congestive heart failure, hypertension, hyperlipidemia, and type II diabetes mellitus who was admitted to the [facility] on 12/25/2022 for shortness of breath. She was admitted to the Medicine service. Upon further evaluation, her CT chest angiogram revealed, "1. Motion artifact degrades image quality and limits evaluation of segmental and subsegmental vessels. No central or proximal segmental pulmonary embolic disease. 2. Small left and trace right pleural effusions. Mild left basilar consolidation (atelectasis and/or infiltrate)." Her lactic acid increased from 3.9 to 5.9. There was concern that she met septic shock criteria. She was started on IV antibiotics and Pulmonology was consulted. Over the course of her hospitalization, her symptoms improved significantly. Dr. Salazar has cleared her for discharge with outpatient follow-up. She has completed a full course of antibiotics inpatient, so she was discharged without any additional antibiotics. During her hospitalization, she reported intermittent chest pain. Her troponin levels were elevated. Cardiology was consulted and she was evaluated by Dr. Abebe. He recommended a nuclear stress test, which revealed, "moderate sized area of scarring suspected LV apex. This is likely related to a prior infarct. No finding to indicate stress-induced ischemia." He has cleared her for discharge with outpatient follow-up. Additionally, she had an acute kidney injury on chronic kidney disease. Nephrology was consulted and she was evaluated by Dr. Guerrero. During her stay, her creatinine fluctuated, but remained relatively stable. Dr. Guerrero has cleared her for discharge, but recommended discontinuing spironolactone on discharge due to her borderline potassium. He will arrange an outpatient follow- up with his partner, Dr. Parks. Incidentally, her abdominal x-ray revealed, a "radiopaque density posterior tissues of the back midline." I spoke with the on-call radiologist, Dr. Leo, who was able to view a CT abdomen from 2020. He stated that this was also appreciated on that exam and seems to be related to expected post-surgical hardware. On 12/31/2022, she was seen on rounds and deemed medically stable for discharge. She was discharged with instructions to schedule follow-up appointments with her PCP/[employer] (Dr. Parks), with Cardiology (Dr. Abebe), and with Pulmonology (Dr. Salazar), and with [employer] (Dr. Arrieta). She was given the opportunity to ask questions and reported no further questions. Furthermore, all questions were answered to the best of my ability. A copy of this discharge summary will be sent to the above providers to facilitate continuity of care. Today, I personally spent 35 minutes on her case, of which greater than 50% of the time was spent in patient education, counseling, and coordination of care as described above. - Physical Exam General: Alert, In no apparent distress, Oriented x3 HEENT: Atraumatic, Mucous membr. moist/pink, Sclerae nonicteric Neck: JVD not distended Respiratory: Diminished, but clear to auscultation bilaterally Cardiovascular: No edema, Regular rate/rhythm, No murmurs Gastrointestinal: Normal bowel sounds, Soft, Non-distended, No tenderness Musculoskeletal: No clubbing Integumentary: No rashes Neurological: Normal speech, Normal affect Vital Signs/Physical Exam: Temp Pulse Resp BP Pulse Ox 96.9 F 62 17 144/75 H 93 12/31/22 03:44 12/31/22 08:28 12/31/22 03:44 12/31/22 08:28 12/31/22 03:44 Laboratory Data at Discharge: WBC 11.50 thou/uL (4.3-10.9) H 12/30/22 08:24 Hgb 11.7 g/dL (12.0-15.0) L 12/30/22 08:24 Hct 35.7 % (36.0-45.0) L 12/30/22 08:24 Plt Count 488 thou/uL (152-406) H 12/30/22 08:24 PT 10.4 SECONDS (9.5-12.5) 12/24/22 20:11 INR 0.95 12/24/22 20:11 Sodium 133 mEq/L (136-145) L 12/31/22 05:38 Potassium 5.0 mEq/L (3.5-5.1) 12/31/22 05:38 BUN 17 mg/dL (7-18) 12/31/22 05:38 Creatinine 1.41 mg/dL (0.55-1.02) H 12/31/22 05:38 Glucose 217 mg/dL (74-106) H 12/31/22 05:38 Uric Acid 5.4 mg/dL (2.6-6.0) 12/31/22 05:38 Phosphorus 3.6 mg/dL (2.5-4.9) 12/27/22 03:47 Magnesium 2.2 mg/dL (1.6-2.4) 12/28/22 06:23 Total Bilirubin 0.3 mg/dL (0.2-1.0) 12/31/22 05:38 AST 36 U/L (15-37) 12/31/22 05:38 ALT 44 U/L (13-56) 12/31/22 05:38 Alkaline Phosphatase 72 U/L (45-117) 12/31/22 05:38 Home Medications: Aspirin 81 mg PO DAILY 03/27/20 Bumetanide 1 mg PO DAILY 03/27/20 Amitriptyline [Elavil*] 50 mg PO BEDTIME 09/07/20 Atorvastatin Calcium 40 mg PO BEDTIME 09/07/20 Folic Acid 1 mg PO DAILY 09/07/20 ARIPiprazole [Aripiprazole] 2 mg PO DAILY 03/02/21 Allopurinol 100 mg PO DAILY 03/02/21 Cholecalciferol (Vitamin D3) [Vitamin D3] 1,000 unit PO DAILY 03/09/21 Mecobalamin [B12 Active] 1,000 mcg PO DAILY 03/09/21 Carvedilol [Coreg] 3.125 mg PO BID 04/16/22 Duloxetine HCl 30 mg PO DAILY 04/16/22 Omeprazole [Prilosec] 40 mg PO DAILY 04/16/22 Amlodipine [Norvasc*] 5 mg PO BEDTIME #30 tab 04/20/22 Physician Discharge Instructions: 1. Please call and schedule a follow-up appointment with your PCP/[employer] (Dr. Parks) in 3-5 days - Please have her repeat your kidney blood work and potassium levels at this appointment - Please have her repeat your chest x-ray in 2-3 weeks to make sure your pne umonia has fully healed 2. Please call and schedule a follow-up appointment with Cardiology (Dr. Abebe) in 5-7 days 3. Please call and schedule a follow-up appointment with Pulmonology (Dr. Salazar) in 5-7 days 4. Please call and schedule a follow-up appointment with [employer] (Dr. Arrieta) in 5-7 days - Your scan showed a fibroid in your uterus. Please discuss with [employer] Diet: Renal Activity: Ad ino Followup: Morgan Salazar MD [ACTIVE - CAN ADMIT] - Miles Guerrero DO [ACTIVE - CAN ADMIT] - Ej Abebe MD [ACTIVE - CAN ADMIT] - Khalida Parks MD [Primary Care Provider] - Lucrecia Arrieta MD [ACTIVE - CAN ADMIT] - Time spent managing pt's care (in minutes): 35
--- NOTE | 2022-12-31 11:14 | P.PN ---
Date of Service: 12/31/22 Vital Signs Temp Pulse Resp BP Pulse Ox 96.9 F 62 17 144/75 H 93 12/31/22 03:44 12/31/22 08:28 12/31/22 03:44 12/31/22 08:28 12/31/22 03:44 Medications Acetaminophen (Acetaminophen 500 Mg Tab) 500 mg PO Q4HP PRN PRN Reason: Pain scale 2-4 (Mild) Last Admin: 12/29/22 10:00 Dose: 500 mg Albuterol Sulfate (Albuterol 2.5 Mg/3 Ml Neb Zulay) 2.5 mg NEB [id number] PRN PRN Reason: SHORTNESS OF BREATH Allopurinol (Allopurinol 100 Mg Tab) 100 mg PO DAILY [facility] Last Admin: 12/31/22 08:28 Dose: 100 mg Amlodipine Besylate (Amlodipine 5 Mg Tab) 5 mg PO BEDTIME [facility] Last Admin: 12/30/22 20:00 Dose: 5 mg Aspirin (Aspirin 81 Mg Chewable Tablet) 81 mg PO DAILY [facility] Last Admin: 12/31/22 08:28 Dose: 81 mg Atorvastatin Calcium (Atorvastatin 40 Mg Tab) 40 mg PO BEDTIME [facility] Last Admin: 12/30/22 19:59 Dose: 40 mg Carvedilol (Carvedilol 3.125 Mg Tab) 3.125 mg PO BID [facility] Last Admin: 12/31/22 08:28 Dose: 3.125 mg Enoxaparin Sodium (Enoxaparin 40 Mg/0.4 Ml) 40 mg SQ DAILY [facility] Last Admin: 12/31/22 08:29 Dose: 40 mg Glucagon (Glucagon 1 Mg/Vial) 1 mg IM 1X PRN; Protocol PRN Reason: HYPOGLYCEMIA Dextrose (Dextrose 10% Water Iv Soln.) 125 mls @ 0 mls/hr IV PRN PRN; Protocol PRN Reason: HYPOGLYCEMIA Insulin Human Regular (Insulin -Regular Human 50 Unit/0.5 Ml Ml) 0 unit SQ ACHS [facility]; Protocol Last Admin: 12/31/22 08:29 Dose: 3 unit Ondansetron HCl (Ondansetron 4 Mg/2 Ml Vial) 4 mg IV Q6HP PRN PRN Reason: NAUSEA / VOMITING Last Admin: 12/31/22 10:41 Dose: 4 mg Pantoprazole Sodium (Pantoprazole 40mg Tablet) 40 mg PO BIDAC [facility]; Protocol Last Admin: 12/31/22 08:29 Dose: 40 mg Sodium Chloride (Flush Normal Saline 10 Ml) 10 ml IV BID [facility] Last Admin: 12/31/22 08:28 Dose: 10 ml Spironolactone (Spironolactone 25 Mg Tablet) 25 mg PO DAILY [facility] Last Admin: 12/31/22 08:28 Dose: 25 mg Assessment/ Plan: Nephrology No dyspnea No chest pain Nausea She is upset this morning due to the of a family friend No acute events overnight Vitals, medications, blood work and imaging reviewed in the chart. NAD. NCAT. MMM. Neck supple. Normal respiratory effort. RRR. Abd ND. No C/C. LE Edema trace. Right knee tenderness. No rash. AAO. Normal speech. CKD III -No NSAIDs Hyperkalemia -Lokelma X1 -May need to discontinue spironolactone HTN with CKD/ CHF -Continue Amlodipine -Continue Coreg Diastolic CHF, A/C Pulmonary HTN -Continue spironolactone DM II with CKD -RISS Anemia in chronic illness -Monitor H&H Case reviewed with Dr. Alvarado Hospitalist note reviewed
[2022-12-31 11:34] VITALS: TEMP 97.7
== END 2022-12-31 15:59 | disposition home health service (06) | DRG 871 ==
LOC: ER 19:25 → ERHOLD 12-25 01:19 → 4TH 12-25 02:35
PROVIDERS: ADMIT Internal Medicine Sleep Medicine; ATTEND Internal Medicine
DX: A41.9 Sepsis, unspecified organism (principal); I21.4 Non-ST elevation (NSTEMI) myocardial infarction; I50.33 Acute on chronic diastolic (congestive) heart failure; J18.9 Pneumonia, unspecified organism; N17.9 Acute kidney failure, unspecified; I13.0 Hypertensive heart and chronic kidney disease with heart failure and stage 1 through stage 4 chronic kidney disease, or unspecified chronic kidney disease; E87.20 Acidosis, unspecified; N18.31 Chronic kidney disease, stage 3a; E11.22 Type 2 diabetes mellitus with diabetic chronic kidney disease; E11.40 Type 2 diabetes mellitus with diabetic neuropathy, unspecified; D63.1 Anemia in chronic kidney disease; E78.5 Hyperlipidemia, unspecified; M06.9 Rheumatoid arthritis, unspecified; I27.20 Pulmonary hypertension, unspecified; K58.9 Irritable bowel syndrome, unspecified; F32.A Depression, unspecified; E87.5 Hyperkalemia; E87.6 Hypokalemia; E83.42 Hypomagnesemia; D25.9 Leiomyoma of uterus, unspecified; K44.9 Diaphragmatic hernia without obstruction or gangrene; E66.9 Obesity, unspecified; E83.51 Hypocalcemia; Z60.2 Problems related to living alone; Z88.8 Allergy status to other drugs, medicaments and biological substances; Z90.81 Acquired absence of spleen; Z68.35 Body mass index [BMI] 35.0-35.9, adult; Z79.82 Long term (current) use of aspirin; Z90.49 Acquired absence of other specified parts of digestive tract; Z95.810 Presence of automatic (implantable) cardiac defibrillator; Z91.013 Allergy to seafood; Z62.810 Personal history of physical and sexual abuse in childhood
CPT/HCPCS: 36415; 71045; 71275; 74018; 78452; 80048; 80053; 81003; 82947; 83605; 83735; 83880; 84100; 84145; 84484; 84550; 85025; 85610; 87040; 87635; 93005; 93017; 93970; 94640; 94760; 96365; 96372; 96375; 97116; 97161; 97530; 99285; A9500; J0696; J1650; J1815; J1940; J2405; J2785; J2930; J3010; J3475; J3535; J7040; J7050; J7614; J7626; Q9967

== ENCOUNTER 2023-03-11 17:19 | Emergency (ER) | payer OTHER ==
[~2023-03-11 17:19] MED LIST: ETOMIDATE 20 MG/10 ML VIAL IV ONE; ROCURONIUM 50 MG/5 ML VIAL IV ONE
--- OUTSIDE RECORDS SUMMARY | 2023-03-11 18:00 | XMS REPORT | Continuity of Care Document ---
:1960 Author Organization [facility] t Address [address] [place] [address] Care Team Providers Name Role Phone Laurel Burris MD Primary Care Physician MAT HINTON Attending Clinician Unavailable [id number] Attending Clinician Unavailable АЛЕКСАНДР HOWELL Attending Clinician Unavailable Doctor Unassigned, Van Attending Clinician Unavailable VINCENT RADER Attending Clinician Unavailable Vincent Rader MD Attending Clinician [phone] Benitez Berger MD Attending Clinician Glenny [...] Clinician VERONICA PENDLETON Attending Clinician Unavailable Alexsander LABORER PRESTRESSED CONCRETEVeronica Mcmahan Attending Clinician RADHA VELÁZQUEZ Attending Clinician Unavailable Radha Linares Attending Clinician Davar_P Attending Clinician Unavailable Aldo Bustos MD Attending Clinician ALDO BUSTOS Attending Clinician Unavailable Brent Attending Clinician Unavailable Gonzalez_C Attending Clinician Unavailable MAT HINTON Admitting Clinician Unavailable [id number] Admitting Clinician Unavailable VINCENT RADER Admitting Clinician [...] Date Expiration Date S ource SELF-PAY CI [id number] [employer] [id number] 2015 HMO 00:00:00 HLSM HLSM [id number] [employer] [id number] 2019 (MEDICARE 00:00:00 REPLACEMENT/ADVANT AGE - HMO) H2HCare C1 [id number] Common Medicare Replace [facility] NSCSpring C1 [id number] Common Medicare Replace [facility] [id number] Common Medicare Replace [facility] [id number] Common Medicare Replace [facility] [id number] Common Medicare Replace [facility] [id number] Common Medicare [facility] [id number] Common Medicare Replace [facility] Problems Condition Condition Condition Status Onset Resolution Last Treating Co mments Source Name Details Category Date Date Treatment Clinician Date Closed Closed Disease Active Univers right right 7-19 ity of ankle ankle 00:00: [place] fracture fracture 00 Medica l Branch Sore Sore Disease Active Univers throat throat 6-14 ity of 00:00: [place] 00 Medical [place] Cough Cough Disease Active Univers 6-13 ity of 00:00: [place] [facility] Branch Chronic Chronic Disease Active Univers combined combined 6-13 ity of systolic systolic 00:00: [place] and and 00 Medical diastolic 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 failure failure Pacemaker Pacemaker Disease Active Uni vers 6-13 ity of 00:00: [facility] Branch Type 2 Type 2 Disease Active Univers diabetes diabetes 6-13 ity of mellitus mellitus 00:00: [place] without without 00 Medical complicati complicati Br anch on, on, without without long-term long-term current current use of use of insulin insulin Hypokalemi Hypokalemi Disease Active U nivers a a 6-13 ity of 00:00: [place] [facility] Branch Hyponatrem Hyponatrem Disease Active U nivers ia ia 6-13 ity of 00:00: [place] [facility] Elevated Elevated Disease Active Unive rs troponin troponin 6-12 ity of 00:00: [place] [facility] Elevated Elevated Disease Active Unive rs troponin troponin 6-12 ity of 00:00: [place] [facility] Branch Obesity Obesity Disease Active 2020-05 Univers (BMI (BMI 2-22 ity of 30-39.9) 30-39.9) 00:00: [place] [facility] Primary Primary Disease Active 2020-05 Overview: Univ ers osteoarthr osteoarthr 2-16 Formattin ity of itis of itis of 00:00: g of this [place] right knee right knee 00 note Me dical might be Branch different from the original. Added automatic ally from request for surgery [id number] Monitoring Monitoring Problem Active V illage of [...] shiraers lisset lisset 3-27 ity of 00:00: [place] 00 Medical Branch [id number] Arthritis Problem Active Co mmon [id number] of knee, Spirit right - [facility] Allergies, Adverse Reactions, Alerts Allergy Allergy Status Severity Reaction(s) Onset Inactive Treating Comm ents Source Name Type Date Date Clinician No Known DA Active U [facility] Allergie 6-30 Clear s 00:00: [place] 00 [facility] Sulfa Drug Active Other - See Unive rs (Sulfona Allergy comments 5-10 ity o f mide 00:00: [place] Antibiot 00 Medical ics) Branch SULFA Drug Active Other-Cmnt Univer s (SULFONA Class 5-10 ity of MIDE 00:00: [place] ANTIBIOT 00 Medical ICS) Branch NO KNOWN Allergy Active [facility] Family History Family Member Diagnosis Comments Start Date Stop Date Source Natural father Hypertension [facility] [place] Natural father Alcohol abuse [facility] Natural father Heart disease [facility] Natural mother Early [facility] Natural sister Hypertension [facility] [place] Natural brother Hypertension [facility] Natural brother Stroke [facility] Social History Social Habit Start Date Stop Date Quantity Comments Source History of [facility] - Tobacco Use [facility] Exposure to 2022-03-29 2022-04-08 Not sure University of SARS-CoV-2 00:00:00 20:45:00 [facility] (event) [place] Tobacco use and 2021-11-24 2021-11-24 Smokeless tobacco Un iversity of exposure 00:00:00 00:00:00 non-user [facility] Alcohol intake 2015-08-13 2015-08-13 Current [facility] es 00:00:00 00:00:00 non-drinker of [facility] nter alcohol (finding) Sex Ass[birth year] [facility] 00:00:00 00:00:00 [facility] Smoking Status Start Date Stop Date Source Never Smoker [facility] Medications Ordered Filled Start Stop [...] by mouth ity of tablet 16:03: at [place] [address] bedtime. Medical Branch bumetanide Yes 1mg Take 1 mg Un irma 1 mg tablet 7-25 by mouth ity of 16:03: in the [place] [address] morning. Medical Branch ARIPiprazol Yes 2mg Take 2 mg U nivers e 2 mg 7-25 by mouth ity of tablet 16:03: daily. [place] [address] Medical Branch insulin NPH Yes 2U inject [...] mouth ity of delayed-rel 16:03: in the [place] [address] morning. Medical suspension Branch carvediloL Yes 3.125mg Take 3.125 Univers 3.125 mg 7-25 mg by ity of tablet 16:03: mouth in [place] [address] the Medical morning Branch and 3.125 mg in the evening. Take with meals. docusate Yes 100mg Take 100 Univ ers (COLACE) 7-25 mg by ity of 100 mg 16:03: mouth in [place] [address] the Medical morning. Branch allopurinoL Yes 100mg Take 100 U nivers 100 mg 7-25 mg by ity of tablet 16:03: mouth in [place] [address] the Medical morning. Branch cholecalcif Yes 1000U [...] mouth ity of 3350 16:03: in the [place] (MIRALAX) 50 morning. Medica l 17 Branch [...] by mouth ity of tablet 16:03: at [place] [address] bedtime. Medical Branch bumetanide Yes 1mg Take [...] mouth ity of delayed-rel 16:03: in the [facility] s ease 50 morning. Medical [...] mouth ity of 3350 16:03: in the [place] (MIRALAX) 50 morning. Medica l 17 Branch [...] by mouth ity of tablet 16:03: at [place] [address] bedtime. Medical Branch bumetanide Yes 1mg Take 1 mg Un irma 1 mg tablet 7-25 by mouth ity of 16:03: in the [place] 50 morning. Medical Branch ARIPiprazol Yes 2mg Take 2 mg U nivers e 2 mg 7-25 by mouth ity of tablet 16:03: daily. [place] [address] Medical Branch insulin NPH Yes 2U inject [...] mouth ity of delayed-rel 16:03: [facility] morning. Medical [...] by mouth ity of tablet 16:03: at [place] [address] bedtime. Medical Branch bumetanide Yes 1mg Take 1 mg Un irma 1 mg tablet 7-25 by mouth ity of 16:03: in the [place] [address] morning. Medical Branch ARIPiprazol Yes 2mg Take 2 mg U nivers e 2 mg 7-25 by mouth ity of tablet 16:03: daily. [place] [address] Medical Branch insulin NPH Yes 2U inject [...] mouth ity of delayed-rel 16:03: in the [facility] 50 morning. Medical suspension Branch carvediloL Yes 3.125mg Take 3.125 Univers 3.125 mg 7-25 mg by ity of tablet 16:03: mouth in [place] [address] the Medical morning Branch and 3.125 mg in the evening. Take with meals. docusate Yes 100mg Take 100 Univ ers (COLACE) 7-25 mg by ity of 100 mg 16:03: mouth in [place] capsule 50 the Medical morning. Branch allopurinoL Yes 100mg Take 100 U nivers 100 mg 7-25 mg by ity of tablet 16:03: mouth in [place] [address] the Medical morning. Branch cholecalcif Yes 1000U [...] mouth ity of 3350 16:03: in the [place] (MIRALAX) 50 morning. Medica l 17 Branch [...] by mouth ity of tablet 16:03: at [place] [address] bedtime. Medical Branch bumetanide Yes 1mg Take 1 mg Un irma 1 mg tablet 7-25 by mouth ity of 16:03: in the [place] 50 morning. Medical Branch ARIPiprazol Yes 2mg Take 2 mg U nivers e 2 mg 7-25 by mouth ity of tablet 16:03: daily. [place] [address] Medical Branch insulin NPH Yes 2U inject [...] mouth ity of delayed-rel 16:03: in the [facility] s ease 50 morning. Medical [...] mouth ity of 3350 16:03: in the [place] (MIRALAX) 50 morning. Medica l 17 Branch [...] by mouth ity of tablet 16:03: at [place] [address] bedtime. Medical Branch bumetanide Yes 1mg Take 1 mg Un irma 1 mg tablet 7-25 by mouth ity of 16:03: in the [place] 50 morning. Medical Branch ARIPiprazol Yes 2mg Take 2 mg U nivers e 2 mg 7-25 by mouth ity of tablet 16:03: daily. [place] [address] Medical Branch insulin NPH Yes 2U inject [...] by mouth ity of 16:03: in the [place] [address] morning. Medical Branch ARIPiprazol Yes 2mg Take 2 mg U nivers e 2 mg 7-25 by mouth ity of tablet 16:03: daily. [place] [address] Medical Branch insulin NPH 0 Yes 2U [...] mouth ity of delayed-rel 16:03: in the [facility] 50 morning. Medical suspension Branch carvediloL Yes 3.125mg Take 3.125 Univers 3.125 mg 7-25 mg by ity of tablet 16:03: mouth in [place] [address] the Medical morning Branch and 3.125 mg in the evening. Take with meals. docusate Yes 100mg Take 100 Univ ers (COLACE) 7-25 mg by ity of 100 mg 16:03: mouth in [place] [address] the Medical morning. Branch allopurinoL Yes 100mg Take 100 U nivers 100 mg 7-25 mg by ity of tablet 16:03: mouth in [place] [address] the Medical morning. Branch cholecalcif Yes 1000U [...] mouth ity of 3350 16:03: in the [place] (MIRALAX) 50 morning. Medica l 17 Branch [...] by mouth ity of tablet 16:03: at [place] [address] bedtime. Medical Branch bumetanide Yes 1mg Take 1 mg Un irma 1 mg tablet 7-25 by mouth ity of 16:03: in the [place] 50 morning. Medical Branch ARIPiprazol Yes 2mg Take 2 mg U nivers e 2 mg 7-25 by mouth ity of tablet 16:03: daily. [place] [address] Medical Branch insulin NPH Yes 2U inject [...] mouth ity of delayed-rel 16:03: in the [facility] s ease 50 morning. Medical suspension Branch carvediloL Yes 3.125mg Take 3.125 Univers 3.125 mg 7-25 mg by ity of tablet 16:03: mouth in [place] 50 the Medical morning Branch and 3.125 mg in the evening. Take with meals. docusate Yes 100mg Take 100 Univ ers (COLACE) 7-25 mg by ity of 100 mg 16:03: mouth in [place] capsule 50 the Medical morning. Branch allopurinoL Yes 100mg Take 100 U nivers 100 mg 7-25 mg by ity of tablet 16:03: mouth in [place] 50 the Medical morning. Branch cholecalcif Yes [...] mouth ity of 3350 16:03: in the [place] (MIRALAX) 50 morning. Medica l 17 Branch [...] by mouth ity of tablet 16:03: at [place] [address] bedtime. Medical Branch bumetanide Yes 1mg Take 1 mg Un irma 1 mg tablet 7-25 by mouth ity of 16:03: in the [place] [address] morning. Medical Branch ARIPiprazol Yes 2mg Take 2 mg U nivers e 2 mg 7-25 by mouth ity of tablet 16:03: daily. [place] [address] Medical Branch insulin NPH Yes 2U inject [...] mouth ity of delayed-rel 16:03: [facility] the [facility] morning. Medical [...] by mouth ity of 16:03: in the [place] [address] morning. Medical Branch ARIPiprazol Yes 2mg Take 2 mg U nivers e 2 mg 7-25 by mouth ity of tablet 16:03: daily. [place] [address] Medical Branch insulin NPH Yes 2U inject [...] mouth ity of delayed-rel 16:03: in the [facility] 50 morning. Medical suspension Branch carvediloL Yes 3.125mg Take 3.125 Univers 3.125 mg 7-25 mg by ity of tablet 16:03: mouth in [place] [address] the Medical morning Branch and 3.125 mg in the evening. Take with meals. docusate Yes 100mg Take 100 Univ ers (COLACE) 7-25 mg by ity of 100 mg 16:03: mouth in [place] capsule 50 the Medical morning. Branch allopurinoL Yes 100mg Take 100 U nivers 100 mg 7-25 mg by ity of tablet 16:03: mouth in [place] 50 the Medical morning. Branch cholecalcif Yes 1000U Take 1,000 Univers nneka, 7-25 Units by ity of vitamin D3, 16:03: mouth in [place] (VITAMIN 50 the [facility] D3) 25 mcg morning. Branc h (1,000 [...] mouth ity of 3350 16:03: in the [place] (MIRALAX) 50 morning. Medica l 17 Branch gram/dose powder benzocaine- Yes [id number] 1{lozen Take 1 Univers menthoL 6-15 ge} Lozenge by ity of lozenge 00:00: mouth [place] 00 every 4 Medical (four) Branch hours as needed for Sore throat. magnesium Yes [id number] 400mg Take 1 U nivers oxide 400 6-15 capsule by ity of mg 00:00: mouth [place] magnesium 00 daily. Medical capsule Branch benzocaine- Yes [id number] 1{lozen Take 1 Univers menthoL 6-15 ge} Lozenge by ity of lozenge 00:00: mouth [place] 00 every 4 Medical (four) Branch hours as needed for Sore throat. magnesium Yes [id number] 400mg Take 1 U nivers oxide 400 6-15 capsule by ity of mg 00:00: mouth [place] magnesium 00 daily. Medical capsule Branch benzocaine- Yes [id number] 1{lozen Take 1 Univers menthoL 6-15 ge} Lozenge by ity of lozenge 00:00: mouth [place] 00 every 4 Medical (four) Branch hours as needed for Sore throat. magnesium 0 Yes [id number] 400mg Take 1 U nivers oxide 400 6-15 capsule by ity of mg 00:00: mouth [place] magnesium 00 daily. Medical capsule Branch benzocaine- Yes [id number] 1{lozen Take 1 Univers menthoL 6-15 ge} Lozenge by ity of lozenge 00:00: mouth [place] 00 every 4 Medical (four) Branch hours as needed for Sore throat. magnesium 2021-0 Yes [id number] 400mg Take 1 U nivers oxide 400 6-15 capsule by ity of mg 00:00: mouth [place] magnesium 00 daily. Medical capsule Branch benzocaine- 0 Yes [id number] 1{lozen Take 1 Univers menthoL 6-15 ge} Lozenge by ity of lozenge 00:00: mouth [place] 00 every 4 Medical (four) Branch hours as needed for Sore throat. magnesium 2021-0 Yes [id number] 400mg Take 1 U nivers oxide 400 6-15 capsule by ity of mg 00:00: mouth [place] magnesium 00 daily. Medical capsule Branch benzocaine- 0 Yes [id number] 1{lozen Take 1 Univers menthoL 6-15 ge} Lozenge by ity of lozenge 00:00: mouth [place] 00 every 4 Medical (four) Branch hours as needed for Sore throat. magnesium 2021-0 Yes [id number] 400mg Take 1 U nivers oxide 400 6-15 capsule by ity of mg 00:00: mouth [place] magnesium 00 daily. Medical capsule Branch benzocaine- Yes [id number] 1{lozen Take 1 Univers menthoL 6-15 ge} Lozenge by ity of lozenge 00:00: mouth [place] 00 every 4 Medical (four) Branch hours as needed for Sore throat. magnesium 2021-0 Yes [id number] 400mg Take 1 U nivers oxide 400 6-15 capsule by ity of mg 00:00: mouth [place] magnesium 00 daily. Medical capsule Branch benzocaine- 0 Yes [id number] 1{lozen Take 1 Univers menthoL 6-15 ge} Lozenge by ity of lozenge 00:00: mouth [place] 00 every 4 Medical (four) Branch hours as needed for Sore throat. magnesium 2021-0 Yes [id number] 400mg Take 1 U nivers oxide 400 6-15 capsule by ity of mg 00:00: mouth [place] magnesium 00 daily. Medical capsule Branch benzocaine- 0 Yes [id number] 1{lozen Take 1 Univers menthoL 6-15 ge} Lozenge by ity of lozenge 00:00: mouth [place] 00 every 4 Medical (four) Branch hours as needed for Sore throat. magnesium Yes [id number] 400mg Take 1 U nivers oxide 400 6-15 capsule by ity of mg 00:00: mouth [place] magnesium 00 daily. Medical capsule Branch benzocaine- Yes [id number] 1{lozen Take 1 Univers menthoL 6-15 ge} Lozenge by ity of lozenge 00:00: mouth [place] 00 every 4 Medical (four) Branch hours as needed for Sore throat. magnesium Yes [id number] 400mg Take 1 U nivers oxide 400 [...] 20 MG 15:36: daily. Medical capsule 54 [place] ferrous Yes 325mg Take 325 [facility] sulfate 325 3-29 [facility] (65 FE) MG 15:36: mouth Medica l tablet 54 daily with Center breakfast. cyanocobala Yes 1000ug QD Take 1,[address] min 1000 3-29 mcg by [facility] MCG tablet 15:36: mouth Medica l 54 daily. [place] aspirin 81 Yes 81mg QD Take [address] MG EC 3-29 by mouth [facility] tablet 15:36: daily. [place] [address] Center cyclobenzap Yes 10mg Take [address] rine 3-29 by mouth 2 [facility] (FLEXERIL) 15:36: (two) Medica l 10 MG 54 times Center tablet daily as needed for Muscle spasms. simvastatin Yes 20mg QD Take [address] (ZOCOR) 20 3-29 by mouth [facility] MG tablet 15:36: nightly. [facility] 54 Center cyclobenzap Yes 10mg Take [address] rine 3-29 by mouth 2 [facility] (FLEXERIL) 15:36: (two) Medica l 10 MG 54 times Center tablet daily as needed for Muscle spasms. simvastatin 2016-0 Yes 20mg QD Take [address] (ZOCOR) 20 3-29 by mouth [facility] MG tablet 15:36: nightly. [address] metFORMIN 2016-0 Yes 1000mg Take 1,000 [...] tablet 15:36: mouth Medica l 54 daily. [place] aspirin 81 2016-0 Yes 81mg QD Take [address] MG EC 3-29 by mouth [facility] tablet 15:36: daily. [address] cyclobenzap 2016-0 Yes 10mg Take [address] rine 3-29 by mouth 2 [facility] (FLEXERIL) 15:36: (two) Medica l 10 MG 54 times Center tablet daily as needed for Muscle spasms. simvastatin 2016-0 Yes 20mg QD Take [address] (ZOCOR) 20 3-29 by mouth [facility] MG tablet 15:36: nightly. [address] metFORMIN 2016-0 Yes 1000mg Take 1,000 [...] tablet 15:36: mouth Medica l 54 daily. [place] aspirin 81 2016-0 Yes 81mg QD Take [address] MG EC 3-29 by mouth [facility] tablet 15:36: daily. [address] cyclobenzap 2016-0 Yes 10mg Take [address] rine 3-29 by mouth 2 [facility] (FLEXERIL) 15:36: (two) Medica l 10 MG 54 times Center tablet daily as needed for Muscle spasms. simvastatin 2016-0 Yes 20mg QD Take [address] (ZOCOR) 20 3-29 by mouth [facility] MG tablet 15:36: nightly. [address] metFORMIN 2016-0 Yes 1000mg Take 1,[address] (GLUCOPHAGE 3-29 mg by [facility] ) 1000 MG 15:36: mouth 2 Medic al tablet 54 (two) Center times daily with breakfast and dinner. omeprazole 2016-0 Yes 20mg QD Take [address] (PRILOSEC) 3-29 by mouth [facility] 20 MG 15:36: daily. [address] ferrous 2016-0 Yes 325mg Take 325 [facility] sulfate 325 3-29 mg by [facility] (65 FE) MG 15:36: mouth Medica l tablet 54 daily with Center breakfast. cyanocobala 2016-0 Yes 1000ug QD Take 1,[address] min 1000 3-29 mcg by [facility] MCG tablet 15:36: mouth Medica l 54 daily. [place] aspirin 81 2016-0 Yes 81mg QD Take [address] MG EC 3-29 by mouth [facility] tablet 15:36: daily. [address] cyclobenzap 2016-0 Yes 10mg Take [address] rine 3-29 by mouth 2 [facility] (FLEXERIL) 15:36: (two) Medica l 10 MG 54 times Center tablet daily as needed for Muscle spasms. simvastatin 2016-0 Yes 20mg QD Take [address] (ZOCOR) 20 3-29 by mouth [facility] MG tablet 15:36: nightly. [address] metFORMIN 2016-0 Yes 1000mg Take 1,[address] (GLUCOPHAGE 3-29 mg by [facility] ) 1000 MG 15:36: mouth 2 Medic al tablet 54 (two) Center times daily with breakfast and dinner. omeprazole 2016-0 Yes 20mg QD Take [address] (PRILOSEC) 3-29 by mouth [facility] 20 MG 15:36: daily. [facility] 54 [place] ferrous 2016-0 Yes 325mg Take 325 [facility] sulfate 325 3-29 mg by [facility] (65 FE) MG 15:36: mouth Medica l tablet 54 daily with Center breakfast. cyanocobala 2016-0 Yes 1000ug QD Take 1,[address] min 1000 3-29 mcg by [facility] MCG tablet 15:36: mouth Medica l 54 daily. [place] aspirin 81 2016-0 Yes 81mg QD Take [address] MG EC 3-29 by mouth [facility] tablet 15:36: daily. [address] cyclobenzap 2016-0 Yes 10mg Take [address] rine 3-29 by mouth 2 [facility] (FLEXERIL) 15:36: (two) Medica l 10 MG 54 times Center tablet daily as needed for Muscle spasms. simvastatin 2016-0 Yes 20mg QD Take [address] (ZOCOR) 20 3-29 by mouth [facility] MG tablet 15:36: nightly. [address] metFORMIN 2016-0 Yes 1000mg Take 1,[address] (GLUCOPHAGE 3-29 mg by [facility] ) 1000 MG 15:36: mouth 2 Medic al tablet 54 (two) Center times daily with breakfast and dinner. omeprazole 2016-0 Yes 20mg QD Take [address] (PRILOSEC) 3-29 by mouth [facility] 20 MG 15:36: daily. [facility] 54 [place] ferrous 2016-0 Yes 325mg Take 325 [facility] sulfate 325 3-29 mg by [facility] (65 FE) MG 15:36: mouth Medica l tablet 54 daily with Center breakfast. cyanocobala 2016-0 Yes 1000ug QD Take 1,[address] min 1000 3-29 mcg by [facility] MCG tablet 15:36: mouth Medica l 54 daily. [place] aspirin 81 2016-0 Yes 81mg QD Take [address] MG EC 3-29 by mouth [facility] tablet 15:36: daily. [address] cyclobenzap 2016-0 Yes 10mg Take [address] rine 3-29 by mouth 2 [facility] (FLEXERIL) 15:36: (two) Medica l 10 MG 54 times Center tablet daily as needed for Muscle spasms. simvastatin 2016-0 Yes 20mg QD Take [address] (ZOCOR) 20 3-29 by mouth [facility] MG tablet 15:36: nightly. [address] metFORMIN 2016-0 Yes 1000mg Take 1,[address] (GLUCOPHAGE 3-29 mg by [facility] ) 1000 MG 15:36: mouth 2 Medic al tablet 54 (two) Center times daily with breakfast and dinner. omeprazole 2016-0 Yes 20mg QD Take [address] (PRILOSEC) 3-29 by mouth [facility] 20 MG 15:36: daily. Medical capsule 54 [place] ferrous 2016-0 Yes 325mg Take 325 [facility] sulfate 325 3-29 mg by [facility] (65 FE) MG 15:36: mouth Medica l tablet 54 daily with Center breakfast. cyanocobala 2016-0 Yes 1000ug QD Take 1,[address] min 1000 3-29 mcg by [facility] MCG tablet 15:36: mouth Medica l 54 daily. [place] aspirin 81 2016-0 Yes 81mg QD Take [address] MG EC 3-29 by mouth [facility] tablet 15:36: daily. [address] cyclobenzap 2016-0 Yes 10mg Take [address] rine 3-29 by mouth 2 [facility] (FLEXERIL) 15:36: (two) Medica l 10 MG 54 times Center tablet daily as needed for Muscle spasms. simvastatin 2016-0 Yes 20mg QD Take [address] (ZOCOR) 20 3-29 by mouth [facility] MG tablet 15:36: nightly. [address] metFORMIN 2016-0 Yes 1000mg Take 1,[address] (GLUCOPHAGE 3-29 mg by [facility] ) 1000 MG 15:36: mouth 2 Medic al tablet 54 (two) Center times daily with breakfast and dinner. omeprazole 2016-0 Yes 20mg QD Take [address] (PRILOSEC) 3-29 by mouth [facility] 20 MG 15:36: daily. Medical capsule 54 [place] ferrous 2016-0 Yes 325mg Take 325 [facility] sulfate 325 3-29 mg by [facility] (65 FE) MG 15:36: mouth Medica l tablet 54 daily with Center breakfast. cyanocobala 2016-0 Yes 1000ug QD Take 1,[address] min 1000 3-29 mcg by [facility] MCG tablet 15:36: mouth Medica l 54 daily. [place] aspirin 81 2016-0 Yes 81mg QD Take [address] MG EC 3-29 by mouth [facility] tablet 15:36: daily. [facility] 54 Center insulin Yes To [...] Dispense Medical Insulin Pen 00 as Center [place] 4 written, mm x 32 G do [...] Dispense Medical Insulin Pen 00 as Center [place] 4 written, mm x 32 G do [...] Dispense Medical Insulin Pen 00 as Center [place] 4 written, mm x 32 G do [...] Dispense Medical Insulin Pen 00 as Center [place] 4 written, mm x 32 G do [...] Dispense Medical Insulin Pen 00 as Center [place] 4 written, mm x 32 G do [...] Dispense Medical Insulin Pen 00 as Center [place] 4 written, mm x 32 G do [...] Dispense Medical Insulin Pen 00 as Center [place] 4 written, mm x 32 G do [...] Dispense Medical Insulin Pen 00 as Center [place] 4 written, mm x 32 G do [...] every 4-6 hours as needed. Insulin Yes [id number] Use as Univ ers [place], 5-11 directed ity of Disposable, 00:00: daily [place] (BD 00 Medical ULTRAFINE Branch III MINI PEN) 31 x 3/16 " Ndle Insulin Yes [id number] Use as Univ ers [place], 5-11 directed ity of Disposable, 00:00: daily [place] (BD 00 Medical ULTRAFINE Branch III MINI PEN) 31 x 3/16 " Ndle Insulin 2014- Yes [id number] Use as Univ ers [place], 5-11 directed ity of Disposable, 00:00: daily [place] (BD 00 Medical ULTRAFINE Branch III MINI PEN) 31 x 3/16 " Ndle Insulin Yes [id number] Use as Univ ers [place], 5-11 directed ity of Disposable, 00:00: daily [place] (BD 00 Medical ULTRAFINE Branch III MINI PEN) 31 x 3/16 " Ndle Insulin 2014-0 Yes [id number] Use as Univ ers [place], 5-11 directed ity of Disposable, 00:00: daily [place] (BD 00 Medical ULTRAFINE Branch III MINI PEN) 31 x 3/16 " Ndle Insulin 2014-0 Yes [id number] Use as Univ ers [place], 5-11 directed ity of Disposable, 00:00: daily [place] (BD 00 Medical ULTRAFINE Branch III MINI PEN) 31 x 3/16 " Ndle Insulin 2014-0 Yes [id number] Use as Univ ers [place], 5-11 directed ity of Disposable, 00:00: daily [place] (BD 00 Medical ULTRAFINE Branch III MINI PEN) 31 x 3/16 " Ndle Insulin 0 Yes [id number] Use as Univ ers [place], 5-11 directed ity of Disposable, 00:00: daily [place] (BD 00 Medical ULTRAFINE Branch III MINI PEN) 31 x 3/16 " Ndle Insulin 2014-0 Yes [id number] Use as Univ ers [place], 5-11 directed ity of Disposable, 00:00: daily [place] (BD 00 Medical ULTRAFINE Branch III MINI PEN) 31 x 3/16 " Ndle Insulin 0 Yes [id number] Use as Univ ers [place], 5-11 directed ity of Disposable, 00:00: daily [place] (BD 00 Medical ULTRAFINE Branch III MINI PEN) 31 x 3/16 " Ndle aspirin 81 2014-0 Yes 81mg Take 1 Tab U nivers mg chewable 3-29 by mouth ity of tablet 00:00: daily. [place] [facility] vitamin 2014-0 Yes 1000ug Take 1 Tab Un irma B-12 3-29 by mouth ity of (CYANOCOBAL 00:[place] [facility] 1,000 00 Medical mcg tablet Branch aspirin 81 0 Yes 81mg Take 1 Tab U nivers mg chewable 3-29 by mouth ity of tablet 00:00: daily. [place] [facility] vitamin 2015-0 Yes 1000ug Take [...] by mouth ity of tablet 00:00: daily. [place] [facility] vitamin 2015-0 Yes 1000ug Take 1 Tab Un irma B-12 3-29 by mouth ity of (CYANOCOBAL [place] [facility] Medical mcg tablet Branch aspirin 81 2014-0 Yes 81mg Take 1 Tab U nivers mg chewable 3-29 by mouth ity of tablet 00:00: daily. [place] [facility] vitamin 2015-0 Yes 1000ug Take 1 Tab Un irma B-12 3-29 by mouth ity of (CYANOCOBAL 00:[place]: [place] [facility] ,000 Medical mcg tablet Branch aspirin 81 2014-0 Yes 81mg Take 1 Tab U nivers mg chewable 3-29 by mouth ity of tablet 00:00: daily. [place] [facility] vitamin 2015-0 Yes 1000ug Take 1 Tab Un irma B-12 3-29 by mouth ity of (CYANOCOBAL [place] [facility] ,000 Medical mcg tablet Branch aspirin 81 2014-0 Yes 81mg Take 1 Tab U nivers mg chewable 3-29 by mouth ity of tablet 00:00: daily. [place] [facility] vitamin 2015-0 Yes 1000ug Take 1 Tab Un irma B-12 3-29 by mouth ity of (CYANOCOBAL 00:[place]: [place]. [place] [facility] ,000 Medical mcg tablet Branch aspirin 81 2014-0 Yes 81mg Take 1 Tab U nivers mg chewable 3-29 by mouth ity of tablet 00:00: daily. [place] [facility] vitamin 2015-0 Yes 1000ug Take 1 Tab Un irma B-12 3-29 by mouth ity of (CYANOCOBAL 00:00: daily. [place] [facility]) 1,000 00 Medical mcg tablet Branch aspirin 81 Yes 81mg Take 1 Tab U nivers mg chewable 29 by mouth ity of tablet 00:00: daily. [address] vitamin Yes 1000ug Take 1 Tab Un irma B-12 3-29 by mouth ity of (CYANOCOBAL 00:00: daily. [place] [facility]) 1,000 00 Medical mcg tablet Branch Bumetanide Bumetanide No Bumetanide Methotrexat Methotrexat No [...] HCl HCl HCl diazePAM diazePAM No diazePAM albuterol albuterol No albuterol [place] sulfate HFA sulfate HFA sulfate Family 90 90 HFA 90 Practic mcg/actuati mcg/actuati mcg/actuat e on aerosol on aerosol ion inhaler inhaler aerosol inhaler alprazolam alprazolam No 1 alprazolam [facility] 0.25 mg 0.25 mg 0.25 mg Family tablet Take tablet Take tablet Practic 1 tablet as 1 tablet as Take 1 e needed by needed by tablet as oral route oral route needed by for 30 for 30 oral route days. days. for 30 days. amiodarone amiodarone No amiodarone [facility] 200 mg 200 mg 200 [...] BD Insulin BD Insulin No BD Insulin [facility] Syringe Syringe Syringe [facility] Ultra-Fine Ultra-Fine Ultra-Fine Practic 0.3 mL 31 0.3 mL 31 0.3 mL 31 e gauge x gauge x gauge x 5/16" 5/16" 5/16" bumetanide bumetanide No .5 Q1D bumetanide [facility] 2 mg tablet 2 mg [...] No Dulcolax Raya nuno (bisacodyl) (bisacodyl) (bisacodyl [facility] 1 cup daily 1 cup daily ) 1 cup Practic daily e folic acid folic acid No 1 Q1D folic acid [facility] 1 mg tablet 1 mg tablet 1 mg F amily Take 1 Take 1 tablet Practic tablet tablet Take 1 e every day every day tablet by oral by oral every day route. route. by oral route. lisinopril lisinopril No 1 Q1D lisinopril [facility] 5 mg tablet 5 mg tablet 5 mg F amily Take 1 Take 1 tablet Practic tablet tablet Take 1 e every day every day tablet by oral by oral every day route for route for by oral 90 days. 90 days. route for 90 days. magnesium magnesium No 1 Q1D magnesium [facility] 400 mg (as 400 mg [...] e omeprazole omeprazole No 1capsul Q1D omeprazole [facility] 40 mg 40 mg e(s) [...] days. paroxetine paroxetine No 1 Q1D paroxetine [facility] 20 mg 20 mg 20 mg Family tablet Take tablet Take tablet Practic 1 tablet 1 tablet Take 1 e every day every day tablet by oral by oral every day route for route for by oral 30 days. 30 days. route for 30 days. sertraline sertraline No sertraline [place] 50 mg 50 mg 50 mg Family tablet tablet tablet Practic e simvastatin simvastatin No 1 Q1D simvastati [place] 20 mg 20 mg n 20 mg Family tablet Take tablet Take tablet Practic 1 tablet 1 tablet Take 1 e every day every day tablet by oral by oral every day route. route. by oral route. tramadol 50 tramadol 50 No tramadol [place] mg tablet mg tablet 50 mg Fami ly tablet Practic e Vital Signs Vital Name Observation Time Observation Value Comments Source Systolic blood 2022-04-09 04:30:00 138 mm[facility]Hg[facility] 2022-04-09 04:30:00 97 mm[Hg] [facility] Heart rate 2022-04-09 04:30:00 60 /min [facility] Respiratory rate 2022-04-09 04:30:00 17 /min [facility] Oxygen saturation in 2022-04-09 04:30:00 100 /min [facility] Arterial blood by [facility] [place] [facility] Pulse oximetry Branch Body temperature 2022-04-09 02:00:00 36.78 Nora [facility] Body height 2022-01-23 16:36:00 172.7 cm [facility] Body weight 2022-01-23 16:36:00 91.173 kg [facility] BMI 2022-01-23 16:36:00 30.56 kg/m2 [facility] height 2021-01-21 08:30:00 68 [in_i] [facility] weight 2021-01-21 08:30:00 226 [lb_av] [facility] temperature 2021-01-21 08:30:00 97.7 [degF] [facility] bmi 2021-01-21 08:30:00 34.36 kg/m2 [facility] blood pressure 2021-01-21 08:30:00 130 mm[Hg] [facility] blood pressure 2021-01-21 08:30:00 84 mm[Hg] [facility] diastolic [facility] height 2021-01-14 08:30:00 68 [in_i] [facility] weight 2021-01-14 08:30:00 226 [lb_av] [facility] temperature 2021-01-14 08:30:00 97.5 [degF] [facility] bmi 2021-01-14 08:30:00 34.36 kg/m2 [facility] blood pressure 2021-01-14 08:30:00 126 mm[Hg] [facility] systolic [facility] blood pressure 2021-01-14 08:30:00 74 mm[Hg] [facility] diastolic [facility] height 2021-01-07 13:00:00 68 [in_i] [facility] weight 2021-01-07 13:00:00 226 [lb_av] [facility] temperature 2021-01-07 13:00:00 98.7 [degF] [facility] bmi 2021-01-07 13:00:00 34.36 kg/m2 [facility] blood pressure 2021-01-07 13:00:00 132 mm[Hg] [facility] blood pressure 2021-01-07 13:00:00 84 mm[Hg] [facility] height 2021-01-02 13:30:00 68 [in_i] [facility] weight 2021-01-02 13:30:00 226 [lb_av] [facility] bmi 2021-01-02 13:30:00 34.36 kg/m2 [facility] blood pressure 2021-01-02 13:30:00 132 mm[Hg] [facility] blood pressure 2021-01-02 13:30:00 86 mm[Hg] [facility] Height 2019-08-07 00:00:00 68.5 [in_i] [facility] BP Systolic 2019-08-07 00:00:00 120 mm[Hg] [facility] BP Diastolic 2019-08-07 00:00:00 76 mm[Hg] [facility] BP Diastolic 2019-07-17 00:00:00 70 mm[Hg] [facility] Height 2019-07-17 00:00:00 68.5 [in_i] [facility] BMI (Body Mass 2019-07-17 00:00:00 34.5 kg/m2 [facility] BP Systolic 2019-07-17 00:00:00 126 mm[Hg] [facility] Body Weight 2019-07-17 00:00:00 230 [lb_av] [facility] Procedures Procedure Date / Time Performing Clinician Source Performed AUTHORIZATION FOR 2022-06-23 06:01:00 Doctor Unassigned, No [facility] RELEASE OF [facility] [place] XR CHEST 2 VW 2022-04-09 03:59:00 Vincent Rader [facility] TROPONIN I 2022-04-09 03:35:00 Dior Vincent [facility] COMP. METABOLIC PANEL 2022-04-09 03:35:00 Vincent Rader [facility] ([id number]) [facility] CBC WITH DIFF 2022-04-09 03:35:00 Vincent Rader [facility] RAPID INFLUENZA A/B 2022-04-09 03:35:00 [facility] 2022-04-09 03:35:00 [facility] NOTICE OF PRIVACY 2022-04-09 02:38:07 Doctor Unassigned, No [facility] [place] CONSENT/REFUSAL FOR 2022-04-09 02:37:20 [facility]igned, [facility] Medical Branch AUTHORIZATION FOR 2022-03-12 05:01:00 Doctor Unassigned, No [facility] RELEASE OF [facility] HOME HEALTH - OTHER 2022-01-14 05:01:00 Doctor Geovanni, [facility] of Care Planned Activity Planned Date Details Comments Source Diagnostic Test Pending 2019-08-07 glucose, Vill age Family 00:00:00 fingerstick, Practice blood [code = glucose, fingerstick, blood] Diagnostic Test Pending 2019-08-07 BMP, serum or Raya nuno Family 00:00:00 plasma [code = Practice BMP, serum or plasma] Instructions [place] [facility] Practice Encounters Start End Encounter Admission Attending Care Care Encounter Source Date/Time Date/Time Type Type Clinicians Facility Department ID 2022-09-05 Outpatient IBNS IBNS [id number] Artemio 22:00:09 [id number] [facility] 2022-04-16 [facility] General Med [id number] 02:42:53 [facility] 2022-04-16 Inpatient UR JAMAAL [facility] Med [id number] 02:35:02 [facility] 2021-12-18 Outpatient 3 [id number] [facility] REF [id number] [facility] 08:29:43 [facility] [place] 2021-12-10 Outpatient 3 [id number] ENC[facility] REF [id number] [facility] 12:33:31 [facility] [place] 2021-12-09 Outpatient 3 [id number] ENCPL REF [id number] [facility] 14:43:46 [facility] [place] 2021-06-17 Outpatient IBNS IBNS [id number] Artemio 12:27:28 [id number] [facility] 2021-06-11 Outpatient STLMLC STLC [id number] Common 13:40:33 [id number] [facility] 2019-09-07 Outpatient HEMATPOUR, [facility] CAR [id number] [facility] 10:28:52 АЛЕКСАНДР 2022-06-23 2022-06-23 Orders Doctor HUMPHRIES 1.2.840.114 [id number] Univers 00:00:00 00:00:00 Only Unassigned, ANIL 350.1.13.10 ity of Van [facility] 4.2.7.2.686 Jad as [phone] [address] 2022-04-08 2022-04-08 Emergency X AUFDERHEIDE [facility] ERT [id number] Univers 20:54:00 22:51:00 , VINCENT ity of [facility] 2022-04-08 2022-04-08 Emergency Aufderheide [facility] 1.2.840.114 [id number] Univers 20:54:00 22:51:00 , Vincent LISA 350.1.13.10 i ty of Caterina [facility] 4.2.7.2.686 [place] [facility] [phone] [address] 2022-04-08 2022-04-08 Orders Doctor YANDEL 1.2.840.114 [id number] Univers 00:00:00 00:00:00 Only Unassigned, ANIL 350.1.13.10 ity of Van HOSPITAL 4.2.7.2.686 Jad as [id number] [address] 2022-03-12 2022-03-12 Orders Doctor YANDEL 1.2.840.114 [id number] Univers 00:00:00 00:00:00 Only Unassigned, ANIL 350.1.13.10 ity of Van HOSPITAL 4.2.7.2.686 Jad as [id number] [address] 2022-02-12 2022-02-12 Telephone [facility] 1.2.840.114 [id number] Univers 00:00:00 00:00:00 NightstaRx 350.1.13.10 it y of [place] 4.2.7.2.686 Jad as CANDACE?BLEA [phone] La dimitri GARCIA [address] [place] [address] MEDICAL OFFICE [facility] 2022-02-03 2022-02-03 Telephone Ab [facility] 1.2.840.114 [id number] Univers 00:00:00 00:00:00 BenitezLendstar 350.1.13.10 it y of [place] 4.2.7.2.686 Jad as CANDACE?BLEA [phone] La dimitri [address] MEDICAL OFFICE [facility] 2022-01-26 2022-01-26 Telephone [facility] 1.2.840.114 [id number] Univers 00:00:00 00:00:00 Benitez L HEALTH 350.1.13.10 it y of [place] 4.2.7.2.686 Jad as CANDACE?BLEA [id number] La dimitri GARCIA [address] [place] [address] OFFICE [facility] 2022-01-26 2022-01-26 Telephone [facility] [id number] Univers 00:00:00 00:00:00 Glenny S HEALTH 350.1.13.10 it y of [place] 4.2.7.2.686 Jad as CANDACE?BLEA [id number] La dimitri ROLLINS[address] OFFICE [facility] 2022-01-23 2022-01-23 [facility] [id number] Univers 11:15:00 12:22:27 GLENNY ity of [facility] 2022-01-23 2022-01-23 Office [facility] 1.2.840.114 [id number] Univers 11:15:00 12:22:27 Visit [facility] 350.1.13.10 it y of [facility] 4.2.7.2.686 Jad as CANDACE?BLEA [id number] La dimitri ROLLINS[address] OFFICE [facility] 2022-01-23 2022-01-23 Outpatient R YOUNG [facility] [id number] Univers 11:15:00 12:22:27 GLENNY ity [facility] 2022-01-14 2022-01-14 Orders Doctor HUMPHRIES 1.2.840.114 [id number] Univers 00:00:00 00:00:00 Only Unassigned, ANIL 350.1.13.10 ity of Van HOSPITAL 4.2.7.2.686 Jad as [id number] [address] 2021-12-30 2021-12-30 [facility]phone [facility] 1.2.840.114 [id number] Univers 00:00:00 00:00:00 Benitez L HEALTH 350.1.13.10 it y of [place] 4.2.7.2.686 Jad as CANDACE?BLEA [id number] La dimitri GARCIA [address] [place] [address] OFFICE [facility] 2021-12-25 2021-12-25 Telephone [facility] 1.2.840.114 [id number] Univers 00:00:00 00:00:00 Benitez L HEALTH 350.1.13.10 it y of [place] 4.2.7.2.686 Jad as CANDACE?BLEA [id number] La dimitri GARCIA [address] [facility] 2021-12-25 2021-12-25 Telephone [facility] 1.2.840.114 [id number] Univers 00:00:00 00:00:00 Benitez L HEALTH 350.1.13.10 it y of [place] 4.2.7.2.686 Jad as CANDACE?BLEA [phone] La dimitri GARCIA [address] [facility] 2021-12-23 2021-12-23 Telephone [facility] 1.2.840.114 [id number] Univers 00:00:00 00:00:00 Benitez Collazo HEALTH 350.1.13.10 it y of [place] 4.2.7.2.686 Jad as CANDACE?BLEA [phone] La diimtri GARCIA [address] [facility] 2021-12-22 2021-12-22 [facility]patient [facility] [id number] Univers 15:40:00 23:59:00 [facility] 2021-12-22 2021-12-22 [facility] [id number] Univers 15:15:00 16:18:41 [facility] 2021-12-22 2021-12-22 Office [facility] 1.2.840.114 [id number] Univers 15:15:00 16:18:41 Visit [facility] 350.1.13.10 it y of [place] 4.2.7.2.686 Jad as CANDACE?BLEA [phone] La dimitri GARCIA [address] [facility] 2021-12-22 2021-12-22 Telephone [facility] 1.2.840.114 [id number] Univers 00:00:00 00:00:00 Benitez Collazo HEALTH 350.1.13.10 it y of [place] 4.2.7.2.686 Jad as CANDACE?BLEA [id number] La dical KNEY [address] [facility] OFFICE [facility] 2021-12-09 2021-12-09 Telephone [facility] 1.2.840.114 [id number] Univers 00:00:00 00:00:00 Benitez Collazo [facility] 350.1.13.10 it y of [facility] 4.2.7.2.686 Jad as CANDACE?BLEA [id number] La dicjyothi GARCIA [address] [facility] OFFICE [facility] 2021-12-08 2021-12-08 Outpatient R [facility] SOR [id number] Univers 10:44:00 16:02:00 BENITEZ ity of [facility] 2021-12-08 2021-12-08 Hospital [facility] 1.2.840.114 [id number] Univers 10:44:00 16:02:00 Encounter Benitez GONZALEZ 350.1.13.10 ity of [facility] 4.2.7.2.686 [place] SURGICAL [id number] [address] 2021-12-08 2021-12-08 Surgery [facility] 1.2.509.847 [id number] Univers 12:45:00 14:29:00 Benitez GONZALEZ 350.1.13.10 i ty of [place] 4.2.7.2.686 [place] SUR[place]ICAL [id number] [facility] [address] [place] 2021-12-08 2021-12-08 Orders Doctor YANDEL 1.2.840.114 [id number] Univers 00:00:00 00:00:00 Only Unassigned, ANIL 350.1.13.10 ity of Van HOSPITAL 4.2.7.2.686 Jad as [phone] [facility] [address] [place] 2021-12-05 2021-12-05 Anesthesia Resident Stephane, Adc Lab Main [facility] 1.2.8 40.114 [id number] Univers 09:15:00 09:30:00 Visit Benitez Berger 350.1.13.10 ity of [facility] 4.2.7.2.686 [place] PROFESS[place] [phone] La dical NAL 353 [facility] 2021-12-05 2021-12-05 Laboratory Only, Adc Test [facility] 1.2.840. 114 [id number] Univers 08:45:00 09:00:00 Only Beintez Berger 350.1.13.10 ity of [facility] 4.2.7.2.686 [facility] [id number] [facility] [address] 2021-12-05 2021-12-05 Outpatient R AB [facility] [id number] Univers 09:34:20 08:59:00 BENITEZ ity of [facility] 2021-12-05 2021-12-05 Hospital Ab [facility] 1.2.840.114 [id number] Univers 08:30:00 08:59:00 Encounter Benitez GONZALEZ 350.1.13.10 ity of [place] 4.2.7.2.686 [facility] [id number] [facility] [address] [place] 2021-12-02 2021-12-02 Prep For Ab [facility] 1.2.840.114 [id number] Univers 00:00:00 00:00:00 Surgery Benitez Collazo HEALTH 350.1.13.10 it y of [facility] 4.2.7.2.686 Jad as CANDACE?BLEA [id number] La dimitri [address] MEDICAL OFFICE [facility] 2021-12-01 2021-12-01 Telephone Ab KYPAT 1.2.840.114 [id number] Univers 00:00:00 00:00:00 Benitez Collazo HEALTH 350.1.13.10 it y of [facility] 4.2.7.2.686 Jad as CANDACE?BLEA [phone] La dimitri [address] MEDICAL OFFICE BUILDING 2021-12-01 2021-12-01 Orders Doctor YANDEL 1.2.840.114 [id number] Univers 00:00:00 00:00:00 Only Unassigned, ANIL 350.1.13.10 ity of Van HOSPITAL 4.2.7.2.686 Jad as [phone] [facility] [address] 2021-11-28 2021-11-28 Telephone Ab [facility] 1.2.840.114 [id number] Univers 00:00:00 00:00:00 Benitez TY 350.1.13.10 it y of [place] 4.2.7.2.686 Jad as CANDACE?BLEA [id number] La dimitri GARCIA [address] [place] [address] OFFICE [facility] 2021-11-25 2021-11-25 Telephone [facility] 1.2.840.114 [id number] Univers 00:00:00 00:00:00 Benitez TY 350.1.13.10 it y of [place] 4.2.7.2.686 Jad as CANDACE?BLEA [phone] La dimitri GARCIA [address] [place] [address] MEDICAL OFFICE [facility] 2021-11-25 2021-11-25 Orders Doctor YANDEL 1.2.840.114 [id number] Univers 00:00:00 00:00:00 Only Unassigned, ANIL 350.1.13.10 ity of Van HOSPITAL 4.2.7.2.686 Jad as [phone] [address] 2021-11-24 2021-11-24 [facility] [id number] Univers 14:45:00 15:38:44 BENITEZ muhammad [facility] 2021-11-24 2021-11-24 Office [facility] 1.2.013.790 [id number] Univers 14:45:00 15:38:44 Visit Benitez TY 350.1.13.10 it y of [place] 4.2.7.2.686 Jad as CANDACE?BLEA [id number] La dimitri GARCIA [address] [place] [address] OFFICE [facility] 2021-11-24 2021-11-24 Outpatient R YOUNG [facility] [id number] Univers 10:15:00 10:15:00 GLENNY ity of [facility] 2021-11-13 2021-11-13 Emergency EM Oyebadejo, HCACL AERS [id number] [facility] 07:53:00 11:37:00 Oluwadolapo [address] Cl [facility] 2021-11-13 2021-11-13 Emergency EM Oyebadejo, HCACL HCACL [id number] [facility] 07:53:00 07:53:00 Oluwadolapo [id number] [facility] 2021-11-06 2021-11-06 Transition OracioARISTEOToni 1.2.840.114 [id number] Univers 00:00:00 00:00:00 of Care Alina Holland [place] 350.1.13.10 i ty of [place].2.7.2.686 [place] [id number] [facility] [address] 2021-10-26 2021-11-05 Inpatient X HANNAH [facility] [id number] Univers 11:31:00 15:25:00 DIANE itheidi [facility] 2021-10-26 2021-11-05 Hospital Olu Mathew [facility] 1.2.840.1 [id number] Univers 11:31:00 15:25:00 Encounter Kandy Sanchez 350.1.13.10 ity of CleoDiane alonso FRANCES 4.2.7.2.686 [facility] [id number] [facility] [address] 2021-09-26 2021-09-26 Office [facility] 1.2.840.114 [id number] Univers 10:30:00 11:00:00 Visit [facility] 350.1.13.10 it y of [place] 4.2.7.2.686 Jad as CANDACE?BLEA [id number] [address] MEDICAL OFFICE BUILDING 2021-09-26 2021-09-26 Outpatient Day VIDAL [facility] [id number] Univers 10:30:00 10:30:00 GLENNY muhammad [facility] 2021-09-26 2021-09-26 Outpatient Day VIDAL [facility] [id number] Univers 10:30:00 10:30:00 GLENNY muhammad [facility] 2021-09-15 2021-09-15 Outpatient R ALEXSANDER [facility] [id number] Univers 12:56:02 23:59:00 VERONICA jin f [facility] 2021-09-15 2021-09-15 [facility] 1.2.902.481 [id number] Univers 12:56:02 23:59:00 Encounter [facility] 350.1.13.10 ity of [place] 4.2.7.2.686 Jad as CANDACE?BLEA [id number] Me dical RADHA [address] [facility] 2021-09-15 2021-09-15 Urgent Alexsander [facility] 1.2.840.114 [id number] Univers 12:40:00 13:03:01 Care [facility] 350.1.13.10 i ty of [place] 4.2.7.2.686 Jad as CANDACE?BLEA [id number] Me dicjyothi GARCIA [address] [facility] 2021-07-25 2021-07-25 Outpatient Day VIDAL [facility] [id number] Univers 10:15:00 10:15:00 GLENNY itheidi [facility] 2021-07-24 2021-07-24 Telephone [facility] 1.2.320.722 [id number] Univers 00:00:00 00:00:00 Glenny S [facility] 350.1.13.10 i ty of [place] 4.2.7.2.[place] [id number] Me dicjyothi KRAMER 198 [facility] 2021-07-21 2021-07-21 [facility] [id number] Univers 00:00:00 00:00:00 [facility] [id number] it y of [place] [id number] Jda as CANDACE?BLEA [id number] La dicjyothi GARCIA [address] [facility] [place] 2021-07-18 2021-07-18 Orders Doctor YANDEL [id number] Univers 00:00:00 00:00:00 Only Unassigned, ANIL [id number] [place] [facility] 4.2.7.2.686 Jad as [phone] [address] 2021-07-07 2021-07-07 Outpatient Day [facility] [id number] Univers 14:45:00 15:42:55 GLENNY muhammad [facility] 2021-06-30 2021-06-30 Outpatient Day [facility] [id number] Univers 16:00:00 16:00:00 GLENNY itheidi [facility] 2021-06-27 2021-06-27 Orders Doctor YANDEL 1.2.840.114 [id number] Univers 00:00:00 00:00:00 Only Unassigned, ANIL 350.1.13.10 ity of Van [facility] 4.2.7.2.686 Jad as [phone] [address] 2021-06-12 2021-06-12 [facility] 1.2.468.657 [id number] Univers 00:00:00 00:00:00 Glenny S HEALTH 350.1.13.10 it y of [facility] 4.2.7.2.686 Jad as CANDACE?BLEA [phone] La dimitri GARCIA [address] [place] [address] MEDICAL OFFICE [facility] 2021-06-11 2021-06-11 [facility]phone [facility] 1.2.910.101 [id number] Univers 00:00:00 00:00:00 Glenny S HEALTH 350.1.13.10 it y of [facility] 4.2.7.2.686 Jad as CANDACE?BLEA [phone] La dimitri GARCIA [address] [place] [address] MEDICAL OFFICE [facility] 2021-06-06 2021-06-06 Outpatient R [facility] [id number] Univers 08:45:00 09:27:46 [facility] 2021-06-06 2021-06-06 Office [facility] 1.2.840.114 [id number] Univers 08:45:00 09:00:00 Visit [facility] 350.1.13.10 it y of [place] 4.2.7.2.686 Jad as CANDACE?BLEA [phone] La dimitri RO[address] MEDICAL OFFICE [facility] 2021-06-02 2021-06-02 Emergency X EBER [facility] ERT [id number] Univers 14:15:00 19:32:00 RADHA heidi [facility] 2021-06-02 2021-06-02 Emergency X EBER [facility] ERT [id number] Univers 14:15:00 19:32:00 RADHA [facility] 2021-06-02 2021-06-02 Emergency [facility] 1.2.429.847 [id number] Univers 14:15:00 19:32:00 Radha GONZALEZ 350.1.13.10 ity of [place] 4.2.7.2.686 [place] [facility] [phone] [facility] [address] 2021-05-28 2021-05-28 Outpatient Davar_P VFP [facility] [id number] [place] 04:30:00 04:30:00 Family Practic e 2021-05-26 2021-05-26 [facility] [id number] Univers 15:15:00 23:59:00 GLENNY ity [facility] 2021-05-26 2021-05-26 [facility] 1.2.840.114 [id number] Univers 15:15:00 23:59:00 Encounter [facility] 350.1.13.10 ity of [place] 4.2.7.2.686 Jad as CANDACE?BLEA [phone] [facility] [address] [facility] OFFICE [facility] 2021-05-26 2021-05-26 [facility] [id number] Univers 15:15:00 16:33:32 [facility] 2021-05-26 2021-05-26 Office [facility] 1.2.840.114 [id number] Univers 15:15:00 15:30:00 Visit [facility] 350.1.13.10 it y of [place] 4.2.7.2.686 Jad as CANDACE?BLEA [phone] La dimitri [facility] [address] MEDICAL OFFICE [facility] 2021-05-26 2021-05-26 Orders Doctor HUMPHRIES 1.2.840.114 [id number] Univers 00:00:00 00:00:00 Only Unassigned, ANIL 350.1.13.10 ity of Van [facility] 4.2.7.2.686 Jad as [phone] [facility] [address] 2021-05-15 2021-05-15 Orders Doctor HUMPHRIES 1.2.840.114 [id number] Univers 00:00:00 00:00:00 Only Unassigned, ANIL 350.1.13.10 ity of Van [facility]OS[facility] 4.2.7.2.686 Jad as [phone] [facility] [address] 2021-05-13 2021-05-13 Telephone Ab [facility] 1.2.840.114 [id number] Univers 00:00:00 00:00:00 Benitez Collazo [facility] 350.1.13.10 it y of [facility] 4.2.7.2.686 Jad as CANDACE?BLEA [id number] [address] MEDICAL OFFICE BUILDING 2021-05-12 2021-05-12 Outpatient R YOUNG KYPAT SOR [id number] Univers 07:12:00 16:55:00 GLENNY ity of [facility] 2021-05-12 2021-05-12 Hospital Benitez Berger [facility] 1.2.840 .114 [id number] Univers 07:12:00 16:55:00 Encounter Glenny Vidal 350.1.13.10 ity of [place].2.7.2.686 [place] SURGICAL [id number] [facility] [address] 2021-05-12 2021-05-12 Surgery Ab [facility] 1.2.444.120 [id number] Univers 09:00:00 11:18:00 Benitez GONZALEZ 350.1.13.10 i ty of [facility] 4.2.7.2.[place]ICAL [phone] [facility] [address] 2021-05-12 2021-05-12 Orders Doctor YANDEL 1.2.840.114 [id number] Univers 00:00:00 00:00:00 Only Unassigned, ANIL 350.1.13.10 ity of Van HOSPITAL 4.2.7.2.686 Jad as [phone] [facility] [address] 2021-05-09 2021-05-09 Laboratory Only, Adc Test [facility] 1.2.840. 114 [id number] Univers 09:45:00 10:00:00 Only Aldo Bustos 350.1.13.10 ity of [facility] 4.2.7.2.[place] [phone] [facility] [address] 2021-05-09 2021-05-09 [facility] [id number] Univers 09:45:00 09:45:00 ALDO muhammad of [facility] 2021-05-09 2021-05-09 Orders Doctor YANDEL 1.2.840.114 [id number] Univers 00:00:00 00:00:00 Only Unassigned, ANIL 350.1.13.10 ity of Van [facility]OSPITAL 4.2.7.2.686 Jad as [phone] [facility] [address] 2021-05-08 2021-05-08 Outpatient R [facility] [id number] Univers 10:11:52 23:59:00 BENITEZ muhammad [facility] 2021-05-08 2021-05-08 [facility] 1.2.840.114 [id number] Univers 10:11:52 23:59:00 Encounter Benitez GONZALEZ 350.1.13.10 it[place].2.[place] [phone] [facility] [address] 2021-05-08 2021-05-08 [facility] 1.2.840.114 [id number] Univers 10:11:07 23:59:00 Encounter Benitez GONZALEZ 350.1.13.10 ity of [facility] 4.2.7.2.[place] [id number] [facility] [address] 2021-05-08 2021-05-08 Anesthesia Resident Yuniel Calderón Lab Main [facility] 1.2.8 40.114 [id number] Univers 10:00:00 10:15:00 Visit Benitez Berger 350.1.13.10 ity of [facility] 4.2.7.2.686 [place] PROFESS[place] [phone] La dical [facility] [address] BUILDING 2021-05-08 2021-05-08 Telephone [facility] 1.2.840.114 [id number] Univers 00:00:00 00:00:00 Benitez Collazo HEALTH 350.1.13.10 it y of [facility] 4.2.7.2.686 Jad as CANDACE?BLEA [phone] La dimitri GARCIA [address] MEDICAL OFFICE [facility] 2021-05-05 2021-05-05 Orders Doctor YANDEL 1.2.840.114 [id number] Univers 00:00:00 00:00:00 Only Unassigned, ANIL 350.1.13.10 ity of Van HOSPITAL 4.2.7.2.686 Jad as [phone] [address] 2021-05-01 2021-05-01 Office Young [facility] 1.2.840.114 [id number] Univers 08:45:00 09:00:00 Visit [facility] 350.1.13.10 it y of [facility] 4.2.7.2.686 Jad as CANDACE?BLEA [phone] La dimitri GARCIA [address] [place] [address] OFFICE [facility] 2021-05-01 2021-05-01 Outpatient Day [facility] [id number] Univers 08:45:00 08:45:00 [facility] 2021-05-01 2021-05-01 Outpatient Day [facility] [id number] Univers 08:45:00 08:45:00 [facility] 2021-05-01 2021-05-01 Prep For Ab KYPAT 1.2.840.114 [id number] Univers 00:00:00 00:00:00 Surgery Critical access hospital 350.1.13.10 it y of [place] 4.2.7.2.686 Jad as CANDACE?BLEA [phone] La olamidejyothi GARCIA [address] [place] [address] OFFICE [facility] 2021-04-28 2021-04-28 Orders Doctor HUMPHRIES 1.2.840.114 [id number] Univers 00:00:00 00:00:00 Only Unassigned, ANIL 350.1.13.10 ity of Van HOSPITAL 4.2.7.2.686 Jad as [phone] [address] 2021-04-22 2021-04-22 (TEL) STLC STLMLC [id number] Co mmon 00:00:00 00:00:00 [facility] 2021-04-18 2021-04-18 Telephone [facility] 1.2.840.114 [id number] Univers 00:00:00 00:00:00 Benitez TY 350.1.13.10 it y of [place] 4.2.7.2.686 Jad as CANDACE?BLEA [phone] La dimitri GARCIA [address] MEDICAL OFFICE [facility] 2021-04-14 2021-04-14 Telephone [facility] 1.2.840.114 [id number] Univers 00:00:00 00:00:00 Benitez TY 350.1.13.10 it y of [facility] 4.2.7.2.686 Jad as CANDACE?BLEA [phone] La dimitri GARCIA [address] [facility] OFFICE [facility] 2021-04-07 2021-04-07 Outpatient R [facility] [id number] Univers 14:00:00 23:59:00 [facility] 2021-04-07 2021-04-07 Hospital [facility] 1.2.840.114 [id number] Univers 14:00:00 23:59:00 Encounter Benitez Collazo [employer] 350.1.13.10 ity of [place] 4.2.7.2.686 Jad as CANDACE?BLEA [phone] La dimitri GARCIA [address] [facility] 2021-04-07 2021-04-07 Outpatient R [facility] [id number] Univers 14:00:00 15:00:54 BENITEZ [facility] 2021-04-07 2021-04-07 Office [facility] 1.2.973.525 [id number] Univers 13:56:59 15:00:54 Visit Benitez Collazo [employer] 350.1.13.10 it y of [facility] 4.2.7.2.686 Jad as CANDACE?BLEA [phone] La dimitri GARCIA [address] [place] [address] OFFICE [facility] 2021-04-07 2021-04-07 Orders Doctor HUMPHRIES 1.2.840.114 [id number] Univers 00:00:00 00:00:00 Only Unassigned, ANIL 350.1.13.10 ity of [facility] 4.2.7.2.686 Jad as [phone] [place] [address] [address] 2021-03-31 2021-03-31 Orders Doctor YANDEL 1.2.840.114 [id number] Univers 00:00:00 00:00:00 Only Unassigned, ANIL 350.1.13.10 ity of Van [facility] 4.2.7.2.686 Jad as [phone] [place] [address] [address] 2021-02-10 2021-02-10 (TEL) STLMLC STLMLC [id number] Co mmon 00:00:00 00:00:00 [facility] 2021-01-21 2021-01-21 (TEL) STLMLC STLMLC [id number] Co mmon 00:00:00 00:00:00 [facility] 2021-01-21 2021-01-21 (IN/ASP) STLMLC STLMLC [id number] C ommon 00:00:00 00:00:00 INJ ASP [facility] 2021-01-14 2021-01-14 (IN/ASP) STLMLC STLMLC [id number] C ommon 00:00:00 00:00:00 INJ ASP [facility] 2021-01-07 2021-01-07 (IN/ASP) STLMLC STLMLC [id number] C ommon 00:00:00 00:00:00 INJ ASP [facility] 2021-01-06 2021-01-06 (TEL) STLMLC STLMLC [id number] Co mmon 00:00:00 00:00:00 [facility] 2021-01-02 2021-01-02 OFFICE STLMLC STLMLC [id number] Co mmon 00:00:00 00:00:00 VISIT NEW Spir it PT LEVEL [address] [facility] 2020-07-09 2020-07-09 Outpatient Anderson_C VFP VFP 7748 [facility] 01:37:00 01:37:00 85223 Family Practic e 2020-03-27 2020-03-27 Outpatient Anderson_C VFP VFP [address] [place] [address] 01:23:00 01:23:00 47667 Family Practic e 2019-08-14 2019-08-14 Outpatient Anderson_C VFP VFP 7748 94202 [facility] 02:20:00 02:20:00 80123 Family Practic e 2019-08-14 2019-08-14 Outpatient Fields_C VFP VFP [id number] -202 [facility] 02:20:00 02:20:00 83712 Family Practic e 2019-08-07 2019-08-07 Outpatient Anderson_C VFP VFP 7748 94202 [facility] 03:40:00 03:40:00 63484 Family Practic e 2019-08-07 2019-08-07 Cathlyn H VFP [place] - [id number] [facility] 00:00:00 00:00:00 Ashley Lucio Karin mullins MD: [id number] Medical [facility]_Luis [facility] [address], ([facility] [place] [address] , Ph. 2019-08-04 2019-08-04 Outpatient Anderson_C VFP VFP 7748 94202 [facility] 09:28:00 09:28:00 01645 Family Practic e 2019-07-20 2019-07-20 Outpatient Fields_C VFP VFP [id number] 202 [facility] 02:00:00 02:00:00 34840 Family Practic e 2019-07-20 2019-07-20 Outpatient Anderson_C VFP VFP 7748 94202 [facility] 02:00:00 02:00:00 82102 Family Practic e 2019-07-18 2019-07-18 Outpatient Anderson_C VFP VFP 7748 94202 [facility] 12:04:00 12:04:00 76980 Family Practic e 2019-07-17 2019-07-17 Outpatient Anderson_C VFP VFP 7748 94202 [facility] 06:12:00 06:12:00 14556 Family Practic e 2019-07-17 2019-07-17 Cathlyn H VFP [place] - [id number] [facility] 00:00:00 00:00:00 Ashley Luciomahnaz mullins MD: [id number] Medical [facility]_HOU_Sugirene Beltran [facility] [address], ([facility]) [place] [address] , Ph. 2019-06-28 2019-06-28 Outpatient Fields_C VFP VFP [id number] -202 [facility] 02:57:00 02:57:00 39332 Family Practic e 2019-06-28 2019-06-28 Outpatient Fields_C VFP [facility] [id number] -202 [facility] 02:57:00 02:57:00 06057 Family Practic e 2019-06-28 2019-06-28 Outpatient Fields_C VFP [facility] [id number] -202 [facility] 02:57:00 02:57:00 78836 Family Practic e 2019-04-26 2019-04-26 Outpatient MHSE MHSE 7500 MH 07:22:00 07:22:00 [facility] l Results Test Description Test [...] 34.2 g/dL 31.6-35.1 RDW-SD (test code = 33194-2) 45.7 fL 39.0-49.9 RDW-CV (test code = 788-0) 13.9 % 12.0-15.5 PLT (test code = 777-3) See_Comment H [Au tomated message] The system which ge nerated this result transmit octavio reference range: 166 - 35 8 10*3/?L. The reference range was not used to interpret th is result as normal/abnormal . MPV (test code = 97946-3) 9.1 fL 9.5-12.9 L NRBC/100 WBC (test code = See_Comment [ Automated message] The 4147816009) system which [employer] nerated this result transmit octavio reference range: 0.0 - 10 .0 /100 WBCs. The reference r jorge was not used to interpr et this result as normal/abnor mal. NRBC x10^3 (test code = See_Comment [Au tomated message] The 3179415961) system which ge nerated this result transmit octavio reference range: 10*3/?L. The reference range was not u sed to interpret this result as normal/abnormal . SEG % (test code = 95090-7) 58 % 33-76 LYMPH % (test code = 31 % 14-54 88822-0) MONO % (test code = 94435-1) 8 % 0-4 H EOS % (test code = 03944-7) 3 % 0-3 ANC (test code = 753-4) 7.77 10*3/uL 1.88-7.09 H Lab Interpretation (test Abnormal code = 87237-2) [facility] [id number] 04:16:23 Test Item Value Reference Interpretation Comments Range TROPONIN I (test 0.015 ng/mL See_Comment [Automated code = 5496948123) message] The system which generated this result [...] biotin. Lab Interpretation Normal (test code = 78817-8) [id number] 04:13:21 Test Item Value Reference Range Interpretation Comments NT-proBNP (test code 878 pg/mL See_Comment H [Autom ated = 5147774424) message] The system which generated this result transmitted reference range : <=125. The reference range was not used to interpret this result as normal/abnormal . LIZ (test code = LIZ) Biotin has been reported to cause a negative bias, interpret results relative to patient's use of biotin. Lab Interpretation Abnormal (test code = 91526-4) [facility] (13554)2022-04-09 04:01:02 Test Item Value Reference Range Interpretation Comments NA (test code = 139 mmol/L 135-145 1596260225) K (test code = 3.2 mmol/L 3.5-5.0 L 8460129897) CL (test code = 97 mmol/L 98-108 L 6152427504) CO2 TOTAL (test code = 32 mmol/L 23-31 H 5895239755) AGAP (test code = 2-16 9138704450) BUN (test code = 11 mg/dL 7-23 4883564450) GLUCOSE (test code = 161 mg/dL 70-110 H 4471808036) CREATININE (test code = 1.05 mg/dL 0.50-1.04 H 8637923999) TOTAL BILI (test code = 0.4 mg/dL 0.1-1.8 1238874060) CALCIUM (test code = 8.8 mg/dL 8.6-10.6 1704578302) T PROTEIN (test code = 7.3 g/dL 6.3-8.2 3950674365) ALBUMIN (test code = 4.3 g/dL 3.5-5.0 0560648887) ALK PHOS (test code = 87 U/L 34-122 3218472766) ALTv (test code = 20 U/L 5-35 1742-6) AST(SGOT) (test code = 23 U/L 13-40 2584189891) eGFR (test code = mL/min/1.73m2 3756063815) LIZ (test code = LIZ) Association of [...] Stage three ? + --+ --+ ------+| ?15 ?| ?Stage four ? | ? Stage [...] tests). Lab Interpretation Abnormal (test code = 98800-6) [facility]- XR TIBIA/FIBULA 2 V [id number] 00:00:00 [facility] LAKEName: DESTINY GARAY : 1960 Sex: F FAX: Edith Akhtar MD [phone] [place]: [place] St: REG FAX: Bereket Pratt Name: DESTINY GARAY FSED : 1960 Age/S: 61/F [address] [facility] Unit #: [id number] Loc: [place] [address] Phys: Wendie Pratt MD Acct: [id number] Dis Date: Status: REG ER PHONE #: Exam Date: 11/13/2021 0900 FAX #: Reason: fall, s/p knee replacement EXAMS: CPT CODE: [id number] XR TIBIA/FIBULA 2 [place] [address]86 PROCEDURE INFORMATION: Exam: XR Right Tibia and [...] By: [email or web address] Orig Print D/T: S: 11/13/2021 (8303) PAGE 1 Signed Report- XR KNEE 1 OR 2 V [id number] 00:00:00 [facility] LAKEName: DESTINY GARAY : 1960 Sex: F FAX: Edith Akhtar MD [phone] [place]: [facility]: [facility] FAX: Bereket Pratt Name: JARRODDESTINY Sosa FSED : 1960ge/S: / [address] [facility] Unit #: [id number] Loc: [place] [address] Phys: Wendie Pratt MD Acct: [id number] Dis Date: Status: REG ER PHONE #: Exam Date: 11/13/2021 0900 FAX #: Reason: fall, s/p knee replacement EXAMS: CPT CODE: [id number] XR KNEE 1 OR 2 V RT 68783 PROCEDURE INFORMATION: Exam: XR Right Knee Exam [...] 1 Signed Report- XR ANKLE 2 VIEWS [id number] 00:00:00[facility] LAKEName: DESTINY GARAY : 1960 Sex: F FAX: Edith Akhtar MD [phone] [place]: [place] St: REG FAX: Bereket Pratt Name: DESTINY GARAY FSED : 1960 Age/S: 61/F [address] [facility] Unit #: [id number] Loc: [place], [place] [address] Phys: Wendie Pratt MD Acct: [id number] Dis Date: Status: REG ER PHONE #: Exam Date: 11/13/2021 0900 FAX #: Reason: fall, ankle swelling and tenderness medially EXAMS: CPT CODE: [id number] XR ANKLE [address] [place] [address] PROCEDURE INFORMATION: Exam: XR Right Ankle Exam [...] 1 Signed ReportSCR MAMM BILATERAL ELENA CAD [id number] 07:52:28 - SCR MAMM BILATERAL ELENA CAD DIGITALBILATERAL DIGITAL SCREENING MAMMOGRAM 3D/2D WITH CAD: 04/25/2019CLINICAL: Asymptomatic. Digital breast tomosynthesis was performed in addition to routine CC and MLO views. Current mammographic images were evaluated by either a [employer] M-Vu or a [employer] ImageCheckerCAD (computer aided detection system). Comparison is made to exams dated 06/17/2016 mammogram, 05/28/2014 mammogram, and 08/07/2008 mammogram - [facility]. The tissue of both breasts [...] one year. Arnold Doyle M.D. et/penrad:04/27/2019 07:52:28 Temperature Regulator Pyrometer: Asia Lange FW RT(M), [facility] sent: BIRADS 1-2 Normal Mammogram BI-RADS: 2 Benign
[2023-03-11 19:30] LABS: Absolute Lymphocytes (CBC) 3.1 K/uL (0.7-4.9); Hematocrit 35.4 % (36.0-45.0); Lymphocytes % 21.6 % (15.3-44.8); MCV 102.9 fL (80-100); MPV 7.1 fL (7.6-11.3); Platelets 423 thou/uL (152-406); RBC Red Blood Cell Count 3.44 M/uL (3.86-4.86)
[2023-03-11 19:32] LABS: Protime INR 1.01
[2023-03-11] MEDS ORDERED: ONDANSETRON 4 MG/2 ML VIAL ONE (20:15)
[2023-03-11] MEDS ORDERED: FAMOTIDINE 20 MG/2 ML VIAL IV ONE (20:15)
[2023-03-11 20:16] LABS: Albumin 3.5 g/dL (3.4-5.0); Bilirubin Direct 0.2 mg/dL (0-0.2); Bilirubin Indirect, Calculated 0.2 mg/dL (0.2-0.8); Bilirubin Total 0.4 mg/dL (0.2-1.0); Magnesium 1.7 mg/dL (1.6-2.4); Potassium 4.5 mEq/L (3.5-5.1); Protein, Total 7.9 g/dL (6.4-8.2)
[2023-03-11 20:17] LABS: Troponin High Sensitivity 84.9 pg/mL (<58.9)
--- NOTE | 2023-03-11 20:58 | RAD REPORT ---
EXAM DESCRIPTION: Nichole Single View03/11/2023 6:37 pm CLINICAL HISTORY: Shortness of breath COMPARISON: December 2022 FINDINGS: The lungs appear clear of acute infiltrate. The heart is normal size. Pacemaker leads in place IMPRESSION: No acute abnormalities displayed
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
[2023-03-11] MEDS ORDERED: MORPHINE 2 MG/ML SYR ONE ×2 (21:58→22:28)
[2023-03-12] MEDS ORDERED: ONDANSETRON 4 MG/2 ML VIAL ONE (00:09)
[2023-03-12 02:07] VITALS: O2SAT 99
[2023-03-12 02:08] VITALS: BP 137/73; TEMP 99
--- NOTE | 2023-03-12 15:44 | EKG ---
Test Date: 2023-03-11 Test Time: 19:34:10 Appliance Technician: MEASUREMENT RESULTS: Intervals: Rate: 69 MA: 204 QRSD: 154 QT: 448 QTc: 480 Sparks: P: MA: 204 QRS: -86 T: 77 INTERPRETIVE STATEMENTS: AV sequential or dual chamber electronic pacemaker Compared to ECG 12/24/2022 20:02:23 Ventricular-paced complex(es) or rhythm no longer present Atrial-sensed ventricular-paced complex(es) or rhythm no longer present Electronically Signed On 03-12-23 15:42:19 CDT by Ej Abebe
--- NOTE | 2023-03-12 19:12 | RAD REPORT ---
EXAM DESCRIPTION: CT of the head without contrast CLINICAL HISTORY: DIZZINESS COMPARISON: 02/01/2021 TECHNIQUE: Axial CT of the head obtained from the skull apex to the skull base without contrast. Thi s exam was performed according to our departmental dose-optimization program, which includes automate d exposure control, adjustment of the mA and/or kV according to patient size and/or use of iterative reconstruction technique. FINDINGS: No acute intracranial hemorrhage identified. No mass, mass effect, shift of the midline, a bnormal extra-axial fluid collection or CT evidence of acute ischemic change identified. The ventricu lar system and sulcal spaces are mildly enlarged compatible with mild cerebral atrophy. Scattered a reas of hypodensity throughout the supratentorial white matter are nonspecific and may be related to chronic small vessel ischemic change. 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 The visualized paranasal sinuses and mastoid air cells are well aerated. No skull fracture identifi ed. Visualized orbits and globes are unremarkable. Atherosclerotic calcification of the intracranial internal carotid arteries. IMPRESSION: 1. No acute intracranial abnormality by CT criteria. Electronically signed by: Chidi Delacruz 03/11/2023 11:37 PM CDT Due to temporary technical issues with the PACS/Fluency reporting system, reports are being signed by the in house radiologists without review as a courtesy to insure prompt reporting. The interpreting radiologist is fully responsible for the content of the report.
== END 2023-03-12 01:10 ==
LOC: ER 17:19
DX: R07.9 Chest pain, unspecified (principal); N19 Unspecified kidney failure; E11.8 Type 2 diabetes mellitus with unspecified complications; Z79.4 Long term (current) use of insulin; E78.5 Hyperlipidemia, unspecified; I10 Essential (primary) hypertension; D64.9 Anemia, unspecified; M06.9 Rheumatoid arthritis, unspecified; M10.9 Gout, unspecified; Z11.52 Encounter for screening for COVID-19
CPT/HCPCS: 36415; 70450; 71045; 80048; 80076; 83735; 83880; 84484; 85025; 85610; 87635; 93005; 96374; 96375; 99285; J2270; J2405

== ENCOUNTER 2024-06-14 10:24 | Inpatient (IN) | payer OTHER ==
[2024-06-14] MEDS ORDERED: HYDROCODONE/APAP 10/325 TAB ONE (11:29)
--- NOTE | 2024-06-14 11:29 | RAD REPORT ---
EXAM: Chest Single View HISTORY: DYSPNEA COMPARISON: 03/11/2023 FINDINGS: LUNGS/PLEURA: The lungs are clear. No pleural effusions or pneumothorax. No pulmonary edema. MEDIASTINUM: The mediastinal silhouette is within normal limits. CARDIAC: Stable size and configuration. UPPER ABDOMEN: No significant abnormality. BONES: No acute abnormality. LINES/TUBES/OTHER: Pacemaker present. IMPRESSION: No evidence of acute cardiopulmonary disease.
--- NOTE | 2024-06-14 11:38 | RAD REPORT ---
EXAMINATION: CT ABDOMEN AND PELVIS WITHOUT CONTRAST CLINICAL INDICATION: Female, 64 years old.ABD PAIN TECHNIQUE: CT abdomen and pelvis was performed, without IV contrast, as per department protocol. Axia l, sagittal and coronal reconstructions were obtained. One or more of the following dose reduction techniques were used: Automated exposure control, adjustment of the mA and/or kV according to the pat ient size, and/or iterative reconstruction. Unless otherwise specified, incidental findings do not require dedicated imaging follow-up. [id number]. IV CONTRAST: Not administered. COMPARISON: 03/01/2021 FINDINGS: The lack of intravenous contrast limits the sensitivity of this exam for evaluation of solid visceral organs, vascular structures, and retroperitoneum. LOWER CHEST: Bronchiectasis and left lower lobe.No significant pericardial effusion. Small hiatal her radha with thickened distal esophagus.Pacemaker leads. Coronary artery calcifications. UPPER GI: No significant abnormality. LIVER: Hepatic steatosis, but otherwise unremarkable. GALLBLADDER/BILE DUCTS: Cholecystectomy. Mild extra-hepatic biliary ductal dilatation is likely relat ed to the post-cholecystectomy state. Consider correlating with LFT's.? PANCREAS: Atrophy, but otherwise unremarkable. SPLEEN: Splenectomy ADRENALS: No adrenal masses. KIDNEYS AND URETERS: No hydronephrosis.Multiple intermediate attenuation renal lesions are present bi laterally. There is a lesion at the interpolar aspect of the left kidney measuring 16 mm which is increased in size from prior. This lesion previously measured 9 mm. There is a second lesion at the i nterpolar aspect of the left kidney which is also increased in size. Several indeterminate right renal lesions are noted.No urinary tract calculi.Left renal scarring and atrophy. ABDOMINAL AORTA AND OTHER VESSELS: Mild atherosclerotic changes. PERITONEUM: No abnormal free fluid. No free air. LYMPH NODES: No pathologic lymphadenopathy. ABDOMINAL WALL: Unremarkable SMALL BOWEL/COLON: Small bowel has normal course and caliber. No colonic wall thickening or pericolon ic inflammatory changes.Normal appendix. URINARY BLADDER: Underdistended but grossly unremarkable. REPRODUCTIVE ORGANS: Calcified uterine fibroid. MUSCULOSKELETAL: Grade 1 anterolisthesis of L3 on L4. Postoperative changes at the left posterior dharmesh st wall. ADDITIONAL FINDINGS: None. IMPRESSION: No acute or significant abnormalities in the abdomen or pelvis, with evaluation limited by lack of IV contrast. Indeterminate renal lesions which can be further assessed with a nonemergent renal protocol CT or MRI if clinically indicated.
[2024-06-14 11:50] LABS: Absolute Basophils 0.1 K/uL (0-0.5); Absolute Eosinophils 0.3 K/uL (0-0.5); Absolute Lymphocytes (CBC) 2.6 K/uL (0.7-4.9); Absolute Monocytes 0.8 K/uL (0.1-1.3); Absolute Neutrophil 8.8 K/uL (1.8-8.0); Basophils % 0.8 % (0-1.3); Eosinophils % 2.1 % (0-4.4); Hematocrit 37.1 % (36.0-45.0); Hemoglobin 12.3 g/dL (12.0-15.0); Lymphocytes % 20.5 % (15.3-44.8); MCH 33.9 pg (27.0-35.0); MCHC 33.3 g/dL (32.0-36.0); MCV 101.8 fL (80-100); MPV 7.4 fL (7.6-11.3); Monocytes % 6.7 % (3.3-12.3); Neutrophils % 69.9 % (41.7-73.7); Nucleated RBC Absolute Count 0.1 (0-0); Nucleated Red Blood Cells % 0.4 % (0-0); Platelets 398 thou/uL (152-406); RBC Red Blood Cell Count 3.64 M/uL (3.86-4.86); Red Cell Distribution Width 15.9 % (12.1-15.2)
[2024-06-14 12:04] LABS: ALT/SGPT 25 U/L (13-56); AST/SGOT 28 U/L (15-37); Albumin 3.3 g/dL (3.4-5.0); Albumin/Globulin Ratio 0.7 (1.1-1.8); Alkaline Phosphatase 91 U/L (45-117); Anion Gap 8.1 mEq/L (5.0-15.0); BUN Blood Urea Nitrogen 28 mg/dL (7-18); Bicarbonate 30 mEq/L (21-32); Bilirubin Total 0.3 mg/dL (0.2-1.0); Globulin 4.6 g/dL (2.3-3.5); Glomerular Filtration Rate 32 ml/min (=/>90); Glucose Level 132 mg/dL (74-106); NT PRO-BNP 465 pg/mL (<125); Potassium 4.1 mEq/L (3.5-5.1); Protein, Total 7.9 g/dL (6.4-8.2); Sodium Level 136 mEq/L (136-145)
[2024-06-14 12:06] LABS: Bilirubin Direct < 0.2 mg/dL (0-0.2); Bilirubin Indirect, Calculated 0.1 mg/dL (0.2-0.8)
[2024-06-14] MEDS ORDERED: ONDANSETRON 4 MG/2 ML VIAL ONE (12:25)
[2024-06-14] MEDS ORDERED: MORPHINE 4 MG/ML SYR ONE ×2 (12:25→13:59)
[2024-06-14] MEDS ORDERED: FUROSEMIDE 40 MG/4 ML VIAL ONE (12:25)
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
[2024-06-14] MEDS ORDERED: ZOLPIDEM TARTRATE 10 MG TABLET PO PRN (14:14)
[2024-06-14] MEDS ORDERED: ASPIRIN 81 MG CHEWABLE TABLET ONE (14:25)
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
[2024-06-14] MEDS: INSULIN REGULAR (HUMAN) 100 UNIT/ML SQ SCH (18:03)
[2024-06-14] MEDS ORDERED: GLUCAGON 1 MG/VIAL IM PRN (18:05)
[2024-06-14] MEDS ORDERED: D10W 125 ML IV PRN (18:05)
[2024-06-14 18:19] VITALS: BMI 35.2
[2024-06-14] MEDS: BUMETANIDE 1 MG TABLET PO SCH (18:53)
[2024-06-14] MEDS: MORPHINE 2 MG/ML SYR IV PRN (20:25)
[2024-06-14] MEDS: ATORVASTATIN 40 MG TAB PO SCH (20:27)
[2024-06-14] MEDS: HEPARIN 5000 UNIT/ML 1 ML VIAL SQ SCH (20:30)
[2024-06-14] MEDS: TRAZODONE 50 MG TABLET PO SCH (20:37)
[2024-06-14] MEDS: carvediloL 3.125 MG TAB PO SCH (20:47)
[2024-06-14] MEDS: AMLODIPINE 5 MG TAB PO SCH (20:47)
[2024-06-15] MEDS: HYDROCODONE/APAP 5/325 MG TAB PO PRN (00:59)
[2024-06-15 05:48] LABS: Absolute Basophils 0.2 K/uL (0-0.5); Absolute Lymphocytes (CBC) 2.9 K/uL (0.7-4.9); Absolute Monocytes 1.6 K/uL (0.1-1.3); Absolute Neutrophil 19.7 K/uL (1.8-8.0); Basophils % 0.7 % (0-1.3); Eosinophils % 0.2 % (0-4.4); Hematocrit 37.7 % (36.0-45.0); Hemoglobin 12.3 g/dL (12.0-15.0); Lymphocytes % 11.9 % (15.3-44.8); MCH 33.9 pg (27.0-35.0); MCHC 32.8 g/dL (32.0-36.0); MCV 103.4 fL (80-100); MPV 8.1 fL (7.6-11.3); Monocytes % 6.6 % (3.3-12.3); Neutrophils % 80.6 % (41.7-73.7); Nucleated RBC Absolute Count 0.1 (0-0); Nucleated Red Blood Cells % 0.3 % (0-0); Platelets 403 thou/uL (152-406); RBC Red Blood Cell Count 3.64 M/uL (3.86-4.86)
[2024-06-15 05:51] LABS: Anion Gap 11.3 mEq/L (5.0-15.0); Potassium 4.3 mEq/L (3.5-5.1)
[2024-06-15] MEDS: PANTOPRAZOLE 40MG TABLET PO SCH (08:22)
[2024-06-15] MEDS: FOLIC ACID 1 MG TABLET PO SCH (08:22)
[2024-06-15] MEDS: ASPIRIN 81 MG CHEWABLE TABLET PO SCH (08:22)
[2024-06-15 08:47] LABS: Blood Morphology Comment NOT SEEN (NOT SEEN); Platelet Estimate ADEQ; White Blood Cell Scan OK (OK)
[2024-06-15] MEDS ORDERED: HOME MED 1 EA UNK (Bumetanide [Bumetanide] 2 MG Tablet) PO SCH (09:00)
[2024-06-15] MEDS ORDERED: HOME MED 1 EA UNK (Omeprazole [Prilosec] 40 MG Capsule.Dr) PO SCH (09:00)
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
--- NOTE | 2024-06-15 10:09 | P.PN ---
Date of Service: 06/15/24 Subjective: Complains of some mild right upper quadrant abdominal tenderness/pain Still with some periodic dyspnea/chest pain ROS: 10 point ROS as noted above, otherwise negative Physical exam GEN: Alert, oriented, NAD HEENT: Normal conjunctiva, sclera anicteric CV: Regular rate and rhythm, no edema Pulm: Nonlabored respirations on room air ABD: Soft, nontender, nondistended MSK: No joint tenderness Integumentary: No rashes Neuro: Normal speech, normal affect Vitals reviewed Assessment: Acute on chronic diastolic congestive heart failure Pulmonary hypertension NSTEMI Leukocytosis CKD 3 Diabetes mellitus type 2insulin-dependent Hypertension Hyperlipidemia Rheumatoid arthritis History of splenectomy Plan: Acute on chronic diastolic congestive heart failure Pulmonary hypertension NSTEMI coronary angiogram and April 2022 which showed normal coronaries echocardiogram was also in April 2022 and showed a low normal EF of 50 to 55% with severe mitral annular calcification with mild mitral regurgitation, calcified aortic valve with mild aortic stenosis, mild tricuspid regurg, moderate diastolic dysfunction pulmonary hypertension with right ventricular systolic pressures 48 mmHg plus right atrial pressure. Increase Bumex to twice daily from once daily Repeat echocardiogram and consult cardiology Troponins trended flat and no significant events on telemetry overnight Leukocytosis White blood cell count spiked from 12-24 today History of splenectomy, typically runs a little high but not in the 20s Patient did have urinary retention, will obtain UA to assess for possible UTI Also complains of dyspnea and increasing cough although chest x-ray was normal Will obtain CT of the chest without contrast to further evaluate for other infectious causes of the dyspnea and chest pain CKD 3 Continue diuresis, nephrology to be consulted Diabetes mellitus type 2insulin-dependent ACHS Accu-Chek, sliding scale insulin Hypertension Hyperlipidemia Rheumatoid arthritis History of splenectomy Continue home medications when verified DVT PPX: Heparin subcu Code status: Washcoat Wiper Spent Managing Pts Care (In Minutes): 35
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
[2024-06-15 11:31] LABS: Sqamous Epithelial <5 /HPF (None Seen); Urine Bacteria None Seen /HPF (<20); Urine Bilirubin NEGATIVE (Negative); Urine Blood Trace (Negative); Urine Clarity Clear (Clear); Urine Color Light-Yellow (Yellow); Urine Culture Reflex Order NOT NEEDED; Urine Glucose NEGATIVE (Negative); Urine Ketones NEGATIVE (Negative); Urine Micro Reflex YN NO BILL MICROSCOPIC; Urine Mucus Slight /HPF (None Seen); Urine Nitrite NEGATIVE (Negative); Urine Protein NEGATIVE (Negative); Urine Urobilinogen Normal (Normal); Urine pH 5.5 (5.0-7.0)
--- NOTE | 2024-06-15 12:22 | RAD REPORT ---
EXAMINATION: CT Thorax Wo Con CLINICAL INDICATION: Female, 64 years old. [facility] MA[facility] Leukocytosis, dyspnea, cough Y TECHNIQUE: Axial CT scan of the chest without intravenous contrast. Multiplanar reformats were genera octavio and reviewed. One or more of the following dose reduction techniques were used: Automated exposure control, adjustment of the mA and/or kV according patient size, and/or iterative reconstruct ion. Unless otherwise specified, incidental findings do not require dedicated imaging follow-up. COMPARISON: CTA chest 12/24/2022. Chest radiograph 06/14/2024 FINDINGS: LOWER NECK: Visualized thyroid gland and soft tissues are normal. LUNGS: Elevation of the left hemidiaphragm. The lungs show no focal consolidation although dependent bibasilar subsegmental atelectasis is noted more so on the right. No evidence of airspace or interstitial process. Right upper lobe peribronchovascular nodule measuring up to 7 mm, appears to be stable allowing for differences in technique. Subpleural left upper lobe groundglass nodular opacity measuring 9 mm is new. Other scattered pulmonary nodules within the right lower lobe are favo red to be benign.. PLEURA: Small layering right pleural effusion. No pneumothorax. . MEDIASTINUM AND LYMPH NODES: Mild fluid filling of the esophagus with mild wall prominence distally, may reflect sequelae of esophagitis or reflux disease. No mediastinal mass or fluid collection. Normal size mediastinal, hilar, and axillary lymph nodes. Mitral valve calcifications noted. OSSEOUS STRUCTURES AND CHEST WALL: Mottled appearance throughout the osseous structures, nonspecific, could relate to a myeloproliferative process versus red marrow reconversion. The appearance is overall stable Osseous irregularity along the lateral left ninth rib, could relate to fracture healin g. Left chest wall pacer/AICD in place.. UPPER ABDOMEN: Atrophic changes of the left kidney. Exophytic bilateral renal lesions, largest is hyp erdense on the left measuring 1.8 cm, suggesting hemorrhagic cysts. Status post cholecystectomy. IMPRESSION: Small bilateral pulmonary nodules as above, including a new left peripheral upper lobe groundglass 9 mm nodule. Benign etiologies are favored. Please correlate clinically, and consider short-term follow-up CT imaging in 6 months to reevaluate the findings. Trace layering right pleural effusion. Mild wall prominence along the distal esophagus, may reflect sequelae of of esophagitis or reflux dis ease. Mottled appearance throughout the osseous structures, nonspecific, and stable since December 2022. This could relate to red marrow reconversion in the setting of anemia although a myeloproliferative process cannot be excluded. Correlation with complete blood count picture is recommended.
--- NOTE | 2024-06-15 13:48 | ECHO ---
HEIGHT: 5 ft 8 in WEIGHT: 232 lb 0 oz DATE OF STUDY: 06/15/[address]: Esau Reyes NP 2-DIMENSIONAL: YES M.MODE: YES DOPPLER: YES COLOR FLOW: YES TDS: NO PORTABLE: YES DEFINITY: NO BUBBLE STUDY: NO DIAGNOSIS: ELEVATED TROPONIN/ HISTORY OF CONGESTIVE HEART FAILURE CARDIAC HISTORY: CATHERIZATION: NO SURGERY: NO PROSTHETIC VALVE: NO PACEMAKER: YES MEASUREMENTS (cm) DIASTOLIC (NORMALS) SYSTOLIC (NORMALS) IVSd 1.1 (0.6-1.2) LA Diam 3.1 (1.9-4.0) LVEF 76% LVIDd 3.5 (3.5-5.7) LVIDs 1.9 (2.0-3.5) %FS 44% LVPWd 1.0 (0.6-1.2) Ao Diam 2.9 (2.0-3.7) 2 DIMENSIONAL ASSESSMENT: RIGHT ATRIUM: NORMAL LEFT ATRIUM: MODERATELY DILATED RIGHT VENTRICLE: NORMAL/PACEMAKER LEAD LEFT VENTRICLE: NORMAL TRICUSPID VALVE: MILD TRICUSPID REGURGITATION MITRAL VALVE: SEVERE MITRAL ANNULAR CALCIFICATION PULMONIC VALVE: NORMAL AORTIC VALVE: CALCIFIED PERICARDIAL EFFUSION: NONE AORTIC ROOT: NORMAL LEFT VENTRICULAR WALL MOTION: NORMAL. DOPPLER/COLOR FLOW: GRADE II DIASTOLIC DYSFUNCTION. COMMENTS: 1. NORMAL LEFT VENTRICULAR SYSTOLIC FUNCTION, EJECTION FRACTION 60-65%, NORMAL WALL MOTION. 2. GRADE II DIASTOLIC DYSFUNCTION. 3. SEVERE MITRAL ANNULAR CALCIFICATION WITH MODERATE MITRAL STENOSIS ( MEAN GRADIENT 5mmHg). 4. SEVERE CALCIFIED AORTIC VALVE WITH MODERATE AORTIC STENOSIS (AORTIC VALVE AREA 1.3 CENTIMETERS SQUARD, MEAN GRADIENT, 18mmHg). 5. MILD TO MODERATE AORTIC REGURGITATION. 6. NORMAL FILLING PRESSURE (RIGHT ATRIAL PRESSURE 0-5mmHg) TECHNOLOGIST: AXEL ABBASI
[2024-06-16 06:07] LABS: Absolute Basophils 0.1 K/uL (0-0.5); Absolute Eosinophils 0.4 K/uL (0-0.5); Absolute Lymphocytes (CBC) 3.3 K/uL (0.7-4.9); Absolute Monocytes 1.2 K/uL (0.1-1.3); Absolute Neutrophil 9.7 K/uL (1.8-8.0); Basophils % 0.9 % (0-1.3); Eosinophils % 2.9 % (0-4.4); Hematocrit 34.8 % (36.0-45.0); Hemoglobin 11.5 g/dL (12.0-15.0); Lymphocytes % 22.6 % (15.3-44.8); MCH 33.9 pg (27.0-35.0); MCHC 33.2 g/dL (32.0-36.0); MCV 102.3 fL (80-100); MPV 8.3 fL (7.6-11.3); Monocytes % 8.2 % (3.3-12.3); Neutrophils % 65.4 % (41.7-73.7); Nucleated RBC Absolute Count 0.1 (0-0); Nucleated Red Blood Cells % 0.7 % (0-0); Platelets 359 thou/uL (152-406); Red Cell Distribution Width 16.1 % (12.1-15.2)
[2024-06-16 06:28] LABS: Anion Gap 11.3 mEq/L (5.0-15.0); Potassium 4.3 mEq/L (3.5-5.1)
[2024-06-16 07:17] VITALS: O2SAT 94
--- NOTE | 2024-06-16 10:49 | P.PN ---
Nephrology note (S) Pt reports some upper chest discomfort, CT suggested possible esophagitis, no dysphagia reported, no nausea, vomiting, other malaise, weakness present (O) vitals reviewed in the EMR General: Slightly anxious, tearful HEENT: Atraumatic, sclera anicteric, off O2 Neck: Supple Respiratory: b/l air entry, no wheezing Cardiovascular: Distant heart sounds, regular, cardiac murmur, upper chest device Gastrointestinal: Soft and benign, Non-distended Musculoskeletal: No contractures, no sig edema Integumentary: No rashes Neurological: Normal speech, awake, alert EXAM: Chest Single View HISTORY: DYSPNEA COMPARISON: 03/11/2023 FINDINGS: LUNGS/PLEURA: The lungs are clear. No pleural effusions or pneumothorax. No pulmonary edema. MEDIASTINUM: The mediastinal silhouette is within normal limits. CARDIAC: Stable size and configuration. UPPER ABDOMEN: No significant abnormality. BONES: No acute abnormality. LINES/TUBES/OTHER: Pacemaker present. IMPRESSION: No evidence of acute cardiopulmonary disease. EXAMINATION: CT ABDOMEN AND PELVIS WITHOUT CONTRAST CLINICAL INDICATION: Female, 64 years old.ABD PAIN TECHNIQUE: CT abdomen and pelvis was performed, without IV contrast, as per department protocol. Axial, sagittal and coronal reconstructions were obtained. One or more of the following dose reduction techniques were used: Automated exposure control, adjustment of the mA and/or kV according to the patient size, and/or iterative reconstruction. Unless otherwise specified, incidental findings do not require dedicated imaging follow-up. [id number]. IV CONTRAST: Not administered. COMPARISON: 03/01/2021 FINDINGS: The lack of intravenous contrast limits the sensitivity of this exam for evaluation of solid visceral organs, vascular structures, and retroperitoneum. LOWER CHEST: Bronchiectasis and left lower lobe.No significant pericardial effusion. Small hiatal hernia with thickened distal esophagus.Pacemaker leads. Coronary artery calcifications. UPPER GI: No significant abnormality. LIVER: Hepatic steatosis, but otherwise unremarkable. GALLBLADDER/BILE DUCTS: Cholecystectomy. Mild extra-hepatic biliary ductal dilatation is likely related to the post-cholecystectomy state. Consider correlating with LFT's.? PANCREAS: Atrophy, but otherwise unremarkable. SPLEEN: Splenectomy ADRENALS: No adrenal masses. KIDNEYS AND URETERS: No hydronephrosis.Multiple intermediate attenuation renal lesions are present bilaterally. There is a lesion at the interpolar aspect of the left kidney measuring 16 mm which is increased in size from prior. This lesion previously measured 9 mm. There is a second lesion at the interpolar aspect of the left kidney which is also increased in size. Several indeterminate right renal lesions are noted.No urinary tract calculi.Left renal scarring and atrophy. ABDOMINAL AORTA AND OTHER VESSELS: Mild atherosclerotic changes. PERITONEUM: No abnormal free fluid. No free air. LYMPH NODES: No pathologic lymphadenopathy. ABDOMINAL WALL: Unremarkable SMALL BOWEL/COLON: Small bowel has normal course and caliber. No colonic wall thickening or pericolonic inflammatory changes.Normal appendix. URINARY BLADDER: Underdistended but grossly unremarkable. REPRODUCTIVE ORGANS: Calcified uterine fibroid. MUSCULOSKELETAL: Grade 1 anterolisthesis of L3 on L4. Postoperative changes at the left posterior chest wall. ADDITIONAL FINDINGS: None. IMPRESSION: No acute or significant abnormalities in the abdomen or pelvis, with evaluation limited by lack of IV contrast. Indeterminate renal lesions which can be further assessed with a nonemergent renal protocol CT or MRI if clinically indicated. A/P) 1. Underlying CKD Stage IIIb, prior RAQUEL episode(s). Smaller/atrophic kidney unilateral, current renal function tests stable 2. Grimes removed per reports, UA reviewed 3. NSTEMI, troponin leak -assessment by Cardiology noted 4. Chronic diastolic CHF also with , MS non rheumatic -no overt decompensation, cont maintenance loop diuretics. 5. Chronic HTN -BP non elevated currently, no TANVIR inhibitors currently ordered, would re-assess role/tolerance as OP Pedro Anand MD, RAJAT
[2024-06-16] MEDS: SUCRALFATE 1GM/10ML UCUP PO SCH (11:42)
[2024-06-16] MEDS: ONDANSETRON 4 MG/2 ML VIAL IV PRN (11:48)
--- NOTE | 2024-06-16 14:07 | P.PN ---
Subjective Date of Service: 06/16/24 Chief Complaint: Dyspnea, elevated troponin Subjective: No new changes, No C/O voiced, Tolerating diet, Ambulating, Improving Review of Systems 10-point ROS is otherwise unremarkable Physical Examination - Vital Signs Temperature: 97.4 F Blood Pressure: 149/67 Pulse: 81 Respirations: 16 Pulse Ox (%): 97 - Physical Exam General: Alert, In no apparent distress HEENT: Atraumatic, PERRLA, EOMI Neck: Supple, JVD not distended Respiratory: Clear to auscultation bilaterally, Normal air movement Cardiovascular: Regular rate/rhythm, Normal S1 S2 Gastrointestinal: Normal bowel sounds, No tenderness Musculoskeletal: No tenderness Integumentary: No rashes Neurological: Normal speech, Normal tone, Normal affect Lymphatics: No axilla or inguinal lymphadenopathy - Studies Medications List Reviewed: Yes Assessment And Plan - Current Problems (Diagnosis) (1) Chronic diastolic heart failure Current Visit: Yes Status: Acute Plan: Patient looks euvolemic on exam continue Bumex 1 mg daily continue coreg. (2) NSTEMI (non-ST elevated myocardial infarction) Current Visit: No Status: Acute Plan: patient got history of mild to moderate CAD, office stress test shows fixed inferior/apical day defect. patient is having leukocytosis with elevated CRP. No further cardiac work up needed. continue ASA 81 mg daily
--- NOTE | 2024-06-16 14:24 | P.PN ---
Date of Service: 06/16/24 Subjective: Complains of some mild right upper quadrant abdominal tenderness/pain Still with some periodic dyspnea/chest pain ROS: 10 point ROS as noted above, otherwise negative Physical exam GEN: Alert, oriented, NAD HEENT: Normal conjunctiva, sclera anicteric CV: Regular rate and rhythm, no edema Pulm: Nonlabored respirations on room air ABD: Soft, nontender, nondistended MSK: No joint tenderness Integumentary: No rashes Neuro: Normal speech, normal affect Vitals reviewed Assessment: Acute on chronic diastolic congestive heart failure Pulmonary hypertension NSTEMI GERD Urinary retention Leukocytosis CKD 3 Diabetes mellitus type 2insulin-dependent Hypertension Hyperlipidemia Rheumatoid arthritis History of splenectomy Plan: Acute on chronic diastolic congestive heart failure Pulmonary hypertension NSTEMI GERD coronary angiogram and April 2022 which showed normal coronaries echocardiogram was also in April 2022 and showed a low normal EF of 50 to 55% with severe mitral annular calcification with mild mitral regurgitation, calcified aortic valve with mild aortic stenosis, mild tricuspid regurg, moderate diastolic dysfunction pulmonary hypertension with right ventricular systolic pressures 48 mmHg plus right atrial pressure. Bumex daily from Repeat echocardiogram and consult cardiology Troponins trended flat and no significant events on telemetry overnight Increased protonix to BID and started carafate today PT consult Urinary retention Grimes placed in ED DC today and voiding trial Leukocytosis White blood cell count spiked from 12-24, now down to 14 History of splenectomy, typically runs a little high but not in the 20s No UTI, no infectious findings on CT Also complains of dyspnea and increasing cough although chest x-ray was normal Discussed CT findings of pulmonary nodules and renal cysts, discussed repeat CT chest in 6 months and outpatient renal protocol CT CKD 3 Continue oral diuresis, nephrology following Diabetes mellitus type 2insulin-dependent ACHS Accu-Chek, sliding scale insulin Hypertension Hyperlipidemia Rheumatoid arthritis History of splenectomy Continue home medications when verified DVT PPX: Heparin subcu Code status: [employer] Intermedi[employer] Spent Managing Pts Care (In Minutes): 35
[2024-06-16] MEDS: PANTOPRAZOLE 40MG TABLET PO SCH (20:50)
[2024-06-17 06:03] LABS: Anion Gap 12.5 mEq/L (5.0-15.0); Potassium 4.5 mEq/L (3.5-5.1)
[2024-06-17 06:13] LABS: Absolute Basophils 0.1 K/uL (0-0.5); Absolute Eosinophils 0.5 K/uL (0-0.5); Absolute Lymphocytes (CBC) 2.4 K/uL (0.7-4.9); Absolute Monocytes 1.4 K/uL (0.1-1.3); Absolute Neutrophil 9.9 K/uL (1.8-8.0); Basophils % 0.9 % (0-1.3); Eosinophils % 3.3 % (0-4.4); Hematocrit 34.3 % (36.0-45.0); Hemoglobin 11.5 g/dL (12.0-15.0); Lymphocytes % 16.6 % (15.3-44.8); MCHC 33.4 g/dL (32.0-36.0); MCV 101.8 fL (80-100); MPV 8.3 fL (7.6-11.3); Monocytes % 9.8 % (3.3-12.3); Neutrophils % 69.4 % (41.7-73.7); Nucleated RBC Absolute Count 0.2 (0-0); Nucleated Red Blood Cells % 1.4 % (0-0); Platelets 367 thou/uL (152-406); RBC Red Blood Cell Count 3.37 M/uL (3.86-4.86); Red Cell Distribution Width 15.7 % (12.1-15.2)
[2024-06-17 08:22] LABS: Differential Total Cells Count 100; Eosinophils 4 % (0-3); Lymphocytes 19 % (15-42); Monocytes 11 % (0-10); Nucleated Red Blood Cells 7 /100WBC; Platelet Estimate ADEQ; Platelets Clumped MANY; Segmented Neutrophils 61 % (40-80); Toxic Granulation 1+
[2024-06-17 08:24] LABS: Anisocytosis SLIGHT; Blood Morphology Comment NOTED (NOT SEEN); Macrocytosis 1+
[2024-06-17] MEDS: MAGNES/ALUMIN/SIMET 30ML UCUP PO ONE (10:00)
--- NOTE | 2024-06-17 15:13 | P.PN ---
Date of Service: 06/17/24 Subjective: Improving, anxious Having GERD symptoms Periodically short of breath ROS: 10 point ROS as noted above, otherwise negative Physical exam GEN: Alert, oriented, NAD HEENT: Normal conjunctiva, sclera anicteric CV: Regular rate and rhythm, no edema Pulm: Nonlabored respirations on room air ABD: Soft, nontender, nondistended MSK: No joint tenderness Integumentary: No rashes Neuro: Normal speech, normal affect Vitals reviewed Assessment: Acute on chronic diastolic congestive heart failure Pulmonary hypertension NSTEMI GERD Urinary retention Leukocytosis CKD 3 Diabetes mellitus type 2insulin-dependent Hypertension Hyperlipidemia Rheumatoid arthritis History of splenectomy Plan: Acute on chronic diastolic congestive heart failure Pulmonary hypertension NSTEMI GERD coronary angiogram and April 2022 which showed normal coronaries echocardiogram was also in April 2022 and showed a low normal EF of 50 to 55% with severe mitral annular calcification with mild mitral regurgitation, calcified aortic valve with mild aortic stenosis, mild tricuspid regurg, moderate diastolic dysfunction pulmonary hypertension with right ventricular systolic pressures 48 mmHg plus right atrial pressure. Bumex daily Repeat echocardiogram shows Echo shows normal LVEF, grade 2 diastolic dysfunction, severe mitral annular calcification with moderate mitral stenosis, severe calcified aortic valve with moderate aortic stenosis, mild to moderate aortic regurgitation Troponins trended flat and no significant events on telemetry overnight Increased protonix to BID and started carafate today PT consult Urinary retention Voiding freely now Leukocytosis White blood cell count spiked from 12-24, now down to 14 History of splenectomy, typically runs a little high but not in the 20s No UTI, no infectious findings on CT Also complains of dyspnea and increasing cough although chest x-ray was normal Discussed CT findings of pulmonary nodules and renal cysts, discussed repeat CT chest in 6 months and outpatient renal protocol CT CKD 3 Continue oral diuresis, nephrology following Diabetes mellitus type 2insulin-dependent ACHS Accu-Chek, sliding scale insulin Hypertension Hyperlipidemia Rheumatoid arthritis History of splenectomy Continue home medications when verified DVT PPX: Heparin subcu 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
--- NOTE | 2024-06-17 15:15 | P.PN ---
Nephrology note (S) Pt reports some on going GERD symptoms, no sig dyspnea, has been OOB, remains anxious about her various health issues (O) vitals reviewed in the EMR General: Slightly anxious, NAD HEENT: Atraumatic, sclera anicteric, off O2 Neck: Supple Respiratory: b/l air entry, no wheezing Cardiovascular: Distant heart sounds, regular, cardiac murmur, upper chest device Gastrointestinal: Soft and benign, Non-distended Musculoskeletal: No contractures, no sig edema Integumentary: No rashes Neurological: Normal speech, awake, alert EXAM: Chest Single View HISTORY: DYSPNEA COMPARISON: 03/11/2023 FINDINGS: LUNGS/PLEURA: The lungs are clear. No pleural effusions or pneumothorax. No pulmonary edema. MEDIASTINUM: The mediastinal silhouette is within normal limits. CARDIAC: Stable size and configuration. UPPER ABDOMEN: No significant abnormality. BONES: No acute abnormality. LINES/TUBES/OTHER: Pacemaker present. IMPRESSION: No evidence of acute cardiopulmonary disease. EXAMINATION: CT ABDOMEN AND PELVIS WITHOUT CONTRAST CLINICAL INDICATION: Female, 64 years old.ABD PAIN TECHNIQUE: CT abdomen and pelvis was performed, without IV contrast, as per department protocol. Axial, sagittal and coronal reconstructions were obtained. One or more of the following dose reduction techniques were used: Automated exposure control, adjustment of the mA and/or kV according to the patient size, and/or iterative reconstruction. Unless otherwise specified, incidental findings do not require dedicated imaging follow-up. [id number]. IV CONTRAST: Not administered. COMPARISON: 03/01/2021 FINDINGS: The lack of intravenous contrast limits the sensitivity of this exam for evaluation of solid visceral organs, vascular structures, and retroperitoneum. LOWER CHEST: Bronchiectasis and left lower lobe.No significant pericardial effusion. Small hiatal hernia with thickened distal esophagus.Pacemaker leads. Coronary artery calcifications. UPPER GI: No significant abnormality. LIVER: Hepatic steatosis, but otherwise unremarkable. GALLBLADDER/BILE DUCTS: Cholecystectomy. Mild extra-hepatic biliary ductal dilatation is likely related to the post-cholecystectomy state. Consider correlating with LFT's.? PANCREAS: Atrophy, but otherwise unremarkable. SPLEEN: Splenectomy ADRENALS: No adrenal masses. KIDNEYS AND URETERS: No hydronephrosis.Multiple intermediate attenuation renal lesions are present bilaterally. There is a lesion at the interpolar aspect of the left kidney measuring 16 mm which is increased in size from prior. This lesion previously measured 9 mm. There is a second lesion at the interpolar aspect of the left kidney which is also increased in size. Several indeterminate right renal lesions are noted.No urinary tract calculi.Left renal scarring and atrophy. ABDOMINAL AORTA AND OTHER VESSELS: Mild atherosclerotic changes. PERITONEUM: No abnormal free fluid. No free air. LYMPH NODES: No pathologic lymphadenopathy. ABDOMINAL WALL: Unremarkable SMALL BOWEL/COLON: Small bowel has normal course and caliber. No colonic wall thickening or pericolonic inflammatory changes.Normal appendix. URINARY BLADDER: Underdistended but grossly unremarkable. REPRODUCTIVE ORGANS: Calcified uterine fibroid. MUSCULOSKELETAL: Grade 1 anterolisthesis of L3 on L4. Postoperative changes at the left posterior chest wall. ADDITIONAL FINDINGS: None. IMPRESSION: No acute or significant abnormalities in the abdomen or pelvis, with evaluation limited by lack of IV contrast. Indeterminate renal lesions which can be further assessed with a nonemergent renal protocol CT or MRI if clinically indicated. A/P) 1. Underlying CKD Stage III unspecified, BSA adjusted eGFR may be higher than reported, prior RAQUEL episode(s). Smaller/atrophic kidney unilateral, current renal function tests stable 2. Grimes removed per reports, UA reviewed 3. NSTEMI, troponin leak -assessment by Cardiology noted 4. Chronic diastolic CHF also with , MS non rheumatic -no overt decompensation, cont maintenance loop diuretics. 5. Chronic HTN -BP non elevated currently, no TANVIR inhibitors currently ordered, will replace Amlodipine with lowest dose Valsartan 6. Abnormal diagnostic imaging of the kidneys b/l, small kidney lesions -can obtain a f/u CT in 3-6 mo, renal mass protocol to re-assess Pedro Anand MD, RAJAT
[2024-06-17] MEDS: VALSARTAN 40 MG TAB PO SCH (20:33)
[2024-06-18 06:12] LABS: Absolute Basophils 0.1 K/uL (0-0.5); Absolute Eosinophils 0.5 K/uL (0-0.5); Absolute Lymphocytes (CBC) 3.5 K/uL (0.7-4.9); Absolute Monocytes 1.4 K/uL (0.1-1.3); Absolute Neutrophil 5.2 K/uL (1.8-8.0); Basophils % 1.3 % (0-1.3); Eosinophils % 4.7 % (0-4.4); Hematocrit 34.3 % (36.0-45.0); Hemoglobin 11.4 g/dL (12.0-15.0); Lymphocytes % 32.6 % (15.3-44.8); MCH 34.2 pg (27.0-35.0); MCHC 33.4 g/dL (32.0-36.0); MCV 102.2 fL (80-100); MPV 8.1 fL (7.6-11.3); Monocytes % 13.1 % (3.3-12.3); Neutrophils % 48.3 % (41.7-73.7); Nucleated RBC Absolute Count 0.3 (0-0); Nucleated Red Blood Cells % 2.5 % (0-0); Platelets 362 thou/uL (152-406); RBC Red Blood Cell Count 3.35 M/uL (3.86-4.86); Red Cell Distribution Width 15.9 % (12.1-15.2)
[2024-06-18 06:31] LABS: Anion Gap 10.3 mEq/L (5.0-15.0); Potassium 4.3 mEq/L (3.5-5.1)
[2024-06-18 09:01] LABS: Atypical Lymphocytes 1 %; Differential Total Cells Count 100; Eosinophils 4 % (0-3); Lymphocytes 29 % (15-42); Monocytes 14 % (0-10); Nucleated Red Blood Cells 3 /100WBC; Segmented Neutrophils 50 % (40-80)
[2024-06-18 09:02] LABS: Platelet Estimate ADEQ
[2024-06-18 09:03] LABS: Platelets, Giant FEW
[2024-06-18 09:05] LABS: Blood Morphology Comment NOTED (NOT SEEN); Macrocytosis 1+
--- NOTE | 2024-06-18 10:40 | RAD REPORT ---
EXAM: Knee Right 3 View INDICATION: right knee pain COMPARISON: 03/08/2021 FINDINGS: No acute fracture. Intact right knee orthoplasty. No significant knee effusion. No significant focal degenerative changes. Other: n/a IMPRESSION: No evidence of acute osseous abnormality involving the imaged knee.
[2024-06-18 14:06] VITALS: BP 128/65; TEMP 99.3
--- NOTE | 2024-06-18 15:23 | P.DS ---
Admission Date: 06/14/24 Discharge Date: 06/18/24 Disposition: ROUTINE DISCHARGE Discharge Condition: GOOD Reason for Admission: Dyspnea, elevated troponin Brief History of Present Illness: 64-year-old female with history of chronic diastolic congestive heart failure, insulin-dependent diabetes, hypertension, hyperlipidemia, CKD rheumatoid arthritis presents to the emergency department with chief complaint of shortness of breath. She was evaluated in the emergency department and her labs were significant for an elevated high-sensitivity troponin of 108.0 BNP 465 and a creatinine of 1.74 which is not far from her baseline renal function. White blood cell count was mildly elevated at 12.6. CT of the abdomen and pelvis was performed in the emergency department and it showed no acute findings in the abdomen or pelvis, indeterminate renal lesions which can be further assessed with a nonemergent renal protocol CT or MRI if clinically indicated. Chest x-ray was also obtained which revealed of acute cardiopulmonary disease. Given the initially elevated troponin ED provider wishes to admit for further evaluation and management. Patient does not appear grossly overloaded at this time, she had a coronary angiogram and April 2022 which showed normal coronaries, her last echocardiogram was also in April 2022 and showed a low normal EF of 50 to 55% with severe mitral annular calcification with mild mitral regurgitation, calcified aortic valve with mild aortic stenosis, mild tricuspid regurg, moderate diastolic dysfunction and pulmonary hypertension with right ventricular systolic pressures 48 mmHg plus right atrial pressure. Hospital Course: Assessment: Acute on chronic diastolic congestive heart failure Pulmonary hypertension NSTEMI GERD Urinary retention Leukocytosis CKD 3 Diabetes mellitus type 2insulin-dependent Hypertension Hyperlipidemia Rheumatoid arthritis History of splenectomy Patient was admitted to the hospital for dyspnea, elevated troponin. She was evaluated by cardiology, her troponins trended flat. Echocardiogram was repeated with results below. She is known to have history of mild to moderate CAD in her office stress test showed fixed inferior/apical wall defects. Cardiology recommends further evaluation as an outpatient. She was also seen by her nephrology group who followed her throughout her adm ission. Her amlodipine was switched to low-dose valsartan at 40 mg daily Protonix was increased to twice daily as she was experiencing some GERD/reflux symptoms and also had some esophageal thickening on the CT scan, she was also started on Carafate to help with her acid reflux. She reports that she had seen GI many years ago for endoscopy, she was instructed to follow-up with her PCP to obtain a referral to see GI and to continue her twice daily PPI for the next 2 weeks at least. She likely would benefit with an EGD in the near future to further evaluate her likely esophagitis/GERD. Recommend follow-up with PCP in 1 to 2 weeks As per your radiology results below you and your primary care doctor should work together to arrange for repeat imaging of your chest and kidneys in the next [address] ABD/Pelivs 06/14 LOWER CHEST: Bronchiectasis and left lower lobe.No significant pericardial effusion. Small hiatal hernia with thickened distal esophagus.Pacemaker leads. Coronary artery calcifications. UPPER GI: No significant abnormality. LIVER: Hepatic steatosis, but otherwise unremarkable. GALLBLADDER/BILE DUCTS: Cholecystectomy. Mild extra-hepatic biliary ductal dilatation is likely related to the post-cholecystectomy state. Consider correlating with LFT's.? PANCREAS: Atrophy, but otherwise unremarkable. SPLEEN: Splenectomy ADRENALS: No adrenal masses. KIDNEYS AND URETERS: No hydronephrosis.Multiple intermediate attenuation renal lesions are present bilaterally. There is a lesion at the interpolar aspect of the left kidney measuring 16 mm which is increased in size from prior. This lesion previously measured 9 mm. There is a second lesion at the interpolar aspect of the left kidney which is also increased in size. Several indeterminate right renal lesions are noted.No urinary tract calculi.Left renal scarring and atrophy. ABDOMINAL AORTA AND OTHER VESSELS: Mild atherosclerotic changes. PERITONEUM: No abnormal free fluid. No free air. LYMPH NODES: No pathologic lymphadenopathy. ABDOMINAL WALL: Unremarkable SMALL BOWEL/COLON: Small bowel has normal course and caliber. No colonic wall thickening or pericolonic inflammatory changes.Normal appendix. URINARY BLADDER: Underdistended but grossly unremarkable. REPRODUCTIVE ORGANS: Calcified uterine fibroid. MUSCULOSKELETAL: Grade 1 anterolisthesis of L3 on L4. Postoperative changes at the left posterior chest wall. ADDITIONAL FINDINGS: None. IMPRESSION: No acute or significant abnormalities in the abdomen or pelvis, with evaluation limited by lack of IV contrast. Indeterminate renal lesions which can be further assessed with a nonemergent renal protocol CT or MRI if clinically indicated. CT Chest 06/15/24 FINDINGS: LOWER NECK: Visualized thyroid gland and soft tissues are normal. LUNGS: Elevation of the left hemidiaphragm. The lungs show no focal consolidation although dependent bibasilar subsegmental atelectasis is noted more so on the right. No evidence of airspace or interstitial process. Right upper lobe peribronchovascular nodule measuring up to 7 mm, appears to be stable allowing for differences in technique. Subpleural left upper lobe groundglass nodular opacity measuring 9 mm is new. Other scattered pulmonary nodules within the right lower lobe are favored to be benign.. PLEURA: Small layering right pleural effusion. No pneumothorax. . MEDIASTINUM AND LYMPH NODES: Mild fluid filling of the esophagus with mild wall prominence distally, may reflect sequelae of esophagitis or reflux disease. No mediastinal mass or fluid collection. Normal size mediastinal, hilar, and axillary lymph nodes. Mitral valve calcifications noted. OSSEOUS STRUCTURES AND CHEST WALL: Mottled appearance throughout the osseous structures, nonspecific, could relate to a myeloproliferative process versus red marrow reconversion. The appearance is overall stable Osseous irregularity along the lateral left ninth rib, could relate to fracture healing. Left chest wall pacer/AICD in place.. UPPER ABDOMEN: Atrophic changes of the left kidney. Exophytic bilateral renal lesions, largest is hyperdense on the left measuring 1.8 cm, suggesting hemorrhagic cysts. Status post cholecystectomy. IMPRESSION: Small bilateral pulmonary nodules as above, including a new left peripheral upper lobe groundglass 9 mm nodule. Benign etiologies are favored. Please correlate clinically, and consider short-term follow-up CT imaging in 6 months to reevaluate the findings. Trace layering right pleural effusion. Mild wall prominence along the distal esophagus, may reflect sequelae of of esophagitis or reflux disease. Mottled appearance throughout the osseous structures, nonspecific, and stable since December 2022. This could relate to red marrow reconversion in the setting of anemia although a myeloproliferative process cannot be excluded. Correlation with complete blood count picture is recommended. Echo 06/14/24 1. NORMAL LEFT VENTRICULAR SYSTOLIC FUNCTION, EJECTION FRACTION 60-65%, NORMAL WALL MOTION. 2. GRADE II DIASTOLIC DYSFUNCTION. 3. SEVERE MITRAL ANNULAR CALCIFICATION WITH MODERATE MITRAL STENOSIS ( MEAN GRADIENT 5mmHg). 4. SEVERE CALCIFIED AORTIC VALVE WITH MODERATE AORTIC STENOSIS (AORTIC VALVE AREA 1.3 CENTIMETERS SQUARD, MEAN GRADIENT, 18mmHg). 5. MILD TO MODERATE AORTIC REGURGITATION. 6. NORMAL FILLING PRESSURE (RIGHT ATRIAL PRESSURE 0-5mmHg) Vital Signs/Physical Exam: Temp Pulse Resp BP Pulse Ox 99.3 F 85 20 128/65 98 06/18/24 12:00 06/18/24 12:00 06/18/24 12:00 06/18/24 12:00 06/18/24 12:00 General: Alert, In no apparent distress, Oriented x3 HEENT: Atraumatic, PERRLA Neck: Supple, JVD not distended Respiratory: Clear to auscultation bilaterally, Normal air movement Cardiovascular: Regular rate/rhythm, Normal S1 S2 Gastrointestinal: Normal bowel sounds, No tenderness Musculoskeletal: No tenderness Integumentary: No rashes Neurological: Normal speech, Normal tone, Normal affect Laboratory Data at Discharge: WBC 10.70 thou/uL (4.3-10.9) 06/18/24 05:29 Hgb 11.4 g/dL (12.0-15.0) L 06/18/24 05:29 Hct 34.3 % (36.0-45.0) L 06/18/24 05:29 Plt Count 362 thou/uL (152-406) 06/18/24 05:29 Sodium 134 mEq/L (136-145) L 06/18/24 05:29 Potassium 4.3 mEq/L (3.5-5.1) 06/18/24 05:29 BUN 27 mg/dL (7-18) H 06/18/24 05:29 Creatinine 1.49 mg/dL (0.55-1.02) H 06/18/24 05:29 Glucose 180 mg/dL (74-106) H 06/18/24 05:29 Total Bilirubin 0.3 mg/dL (0.2-1.0) 06/14/24 11:37 AST 28 U/L (15-37) 06/14/24 11:37 ALT 25 U/L (13-56) 06/14/24 11:37 Alkaline Phosphatase 91 U/L (45-117) 06/14/24 11:37 Home Medications: Aspirin 81 mg PO DAILY 03/27/20 Bumetanide 1 mg PO DAILY 03/27/20 Amitriptyline [Elavil*] 50 mg PO BEDTIME 09/07/20 Atorvastatin Calcium 40 mg PO BEDTIME 09/07/20 Folic Acid 1 mg PO DAILY 09/07/20 ARIPiprazole [Aripiprazole] 2 mg PO DAILY 03/02/21 Allopurinol 100 mg PO DAILY 03/02/21 Cholecalciferol (Vitamin D3) [Vitamin D3] 1,000 unit PO DAILY 03/09/21 Mecobalamin [B12 Active] 1,000 mcg PO DAILY 03/09/21 Carvedilol [Coreg] 3.125 mg PO BID 04/16/22 Duloxetine HCl 30 mg PO DAILY 04/16/22 Pantoprazole [Protonix Tab*] 40 mg PO BID 14 Days #28 tab 06/18/24 Sucralfate [Carafate*] 10 ml PO ACHS #1200 ml 06/18/24 Valsartan [Diovan*] 40 mg PO BEDTIME #30 tab 06/18/24 New Medications: Sucralfate [Carafate*] 10 ml PO ACHS #1200 ml Valsartan [Diovan*] 40 mg PO BEDTIME #30 tab Pantoprazole [Protonix Tab*] 40 mg PO BID 14 Days #28 tab Physician Discharge Instructions: Patient was admitted to the hospital for dyspnea, elevated troponin. She was evaluated by cardiology, her troponins trended flat. Echocardiogram was repeated with results below. She is known to have history of mild to moderate CAD in her office stress test showed fixed inferior/apical wall defects. Cardiology recommends further evaluation as an outpatient. She was also seen by her nephrology group who followed her throughout her admission. Her amlodipine was switched to low-dose valsartan at 40 mg daily Protonix was increased to twice daily as she was experiencing some GERD/reflux symptoms and also had some esophageal thickening on the CT scan, she was also started on Carafate to help with her acid reflux. She reports that she had seen GI many years ago for endoscopy, she was instructed to follow-up with her PCP to obtain a referral to see GI and to continue her twice daily PPI for the next 2 weeks at least. She likely would benefit with an EGD in the near future to further evaluate her likely esophagitis/GERD. Recommend follow-up with PCP in 1 to 2 weeks As per your radiology results below you and your primary care doctor should work together to arrange for repeat imaging of your chest and kidneys in the next [address] ABD/Pelivs 06/14 LOWER CHEST: Bronchiectasis and left lower lobe.No significant pericardial effusion. Small hiatal hernia with thickened distal esophagus.Pacemaker leads. Coronary artery calcifications. UPPER GI: No significant abnormality. LIVER: Hepatic steatosis, but otherwise unremarkable. GALLBLADDER/BILE DUCTS: Cholecystectomy. Mild extra-hepatic biliary ductal dilatation is likely related to the post-cholecystectomy state. Consider correlating with LFT's.? PANCREAS: Atrophy, but otherwise unremarkable. SPLEEN: Splenectomy ADRENALS: No adrenal masses. KIDNEYS AND URETERS: No hydronephrosis.Multiple intermediate attenuation renal lesions are present bilaterally. There is a lesion at the interpolar aspect of the left kidney measuring 16 mm which is increased in size from prior. This lesion previously measured 9 mm. There is a second lesion at the interpolar aspect of the left kidney which is also increased in size. Several indeterminate right renal lesions are noted.No urinary tract calculi.Left renal scarring and atrophy. ABDOMINAL AORTA AND OTHER VESSELS: Mild atherosclerotic changes. PERITONEUM: No abnormal free fluid. No free air. LYMPH NODES: No pathologic lymphadenopathy. ABDOMINAL WALL: Unremarkable SMALL BOWEL/COLON: Small bowel has normal course and caliber. No colonic wall thickening or pericolonic inflammatory changes.Normal appendix. URINARY BLADDER: Underdistended but grossly unremarkable. REPRODUCTIVE ORGANS: Calcified uterine fibroid. MUSCULOSKELETAL: Grade 1 anterolisthesis of L3 on L4. Postoperative changes at the left posterior chest wall. ADDITIONAL FINDINGS: None. IMPRESSION: No acute or significant abnormalities in the abdomen or pelvis, with evaluation limited by lack of IV contrast. Indeterminate renal lesions which can be further assessed with a nonemergent renal protocol CT or MRI if clinically indicated. CT Chest 06/15/24 FINDINGS: LOWER NECK: Visualized thyroid gland and soft tissues are normal. LUNGS: Elevation of the left hemidiaphragm. The lungs show no focal consolidation although dependent bibasilar subsegmental atelectasis is noted more so on the right. No evidence of airspace or interstitial process. Right upper lobe peribronchovascular nodule measuring up to 7 mm, appears to be stable allowing for differences in technique. Subpleural left upper lobe groundglass nodular opacity measuring 9 mm is new. Other scattered pulmonary nodules within the right lower lobe are favored to be benign.. PLEURA: Small layering right pleural effusion. No pneumothorax. . MEDIASTINUM AND LYMPH NODES: Mild fluid filling of the esophagus with mild wall prominence distally, may reflect sequelae of esophagitis or reflux disease. No mediastinal mass or fluid collection. Normal size mediastinal, hilar, and axillary lymph nodes. Mitral valve calcifications noted. OSSEOUS STRUCTURES AND CHEST WALL: Mottled appearance throughout the osseous structures, nonspecific, could relate to a myeloproliferative process versus red marrow reconversion. The appearance is overall stable Osseous irregularity along the lateral left ninth rib, could relate to fracture healing. Left chest wall pacer/AICD in place.. UPPER ABDOMEN: Atrophic changes of the left kidney. Exophytic bilateral renal lesions, largest is hyperdense on the left measuring 1.8 cm, suggesting hemorrhagic cysts. Status post cholecystectomy. IMPRESSION: Small bilateral pulmonary nodules as above, including a new left peripheral upper lobe groundglass 9 mm nodule. Benign etiologies are favored. Please correlate clinically, and consider short-term follow-up CT imaging in 6 months to reevaluate the findings. Trace layering right pleural effusion. Mild wall prominence along the distal esophagus, may reflect sequelae of of esophagitis or reflux disease. Mottled appearance throughout the osseous structures, nonspecific, and stable since December 2022. This could relate to red marrow reconversion in the setting of anemia although a myeloproliferative process cannot be excluded. Correlation with complete blood count picture is recommended. Echo 06/14/24 1. NORMAL LEFT VENTRICULAR SYSTOLIC FUNCTION, EJECTION FRACTION 60-65%, NORMAL WALL MOTION. 2. GRADE II DIASTOLIC DYSFUNCTION. 3. SEVERE MITRAL ANNULAR CALCIFICATION WITH MODERATE MITRAL STENOSIS ( MEAN GRADIENT 5mmHg). 4. SEVERE CALCIFIED AORTIC VALVE WITH MODERATE AORTIC STENOSIS (AORTIC VALVE AREA 1.3 CENTIMETERS SQUARD, MEAN GRADIENT, 18mmHg). 5. MILD TO MODERATE AORTIC REGURGITATION. 6. NORMAL FILLING PRESSURE (RIGHT ATRIAL PRESSURE 0-5mmHg) Diet: Regular Activity: Fall precautions Followup: Derrek Cruz MD [ACTIVE - CAN ADMIT] - 1-2 Weeks Khalida Parks MD [Primary Care Provider] - 1-2 Weeks Sury Pierce MD [OUTSIDE PHYSICIAN] - Time spent managing pt's care (in minutes): 54
--- NOTE | 2024-06-20 12:41 | EKG ---
Test Date: 2024-06-14 Test Time: 11:32:12 Classics Teacher: YAZMIN MEASUREMENT RESULTS: Intervals: Rate: 79 WV: 186 QRSD: 160 QT: 420 QTc: 481 [place]: P: -20 WV: 186 QRS: -28 T: 155 INTERPRETIVE STATEMENTS: Atrial-sensed ventricular-paced rhythm Abnormal ECG Compared to ECG 03/11/2023 19:34:10 AV dual-paced complex(es) or rhythm no longer present Electronically Signed On 06-20-24 12:24:13 COMPUTER SCIENCE INTERN by Derrek Cruz
== END 2024-06-18 14:15 | disposition home or self-care (01) | DRG 280 ==
LOC: ER 10:24 → ERHOLD 14:07 → 2ND 16:14
PROVIDERS: ADMIT Hospitalist; ATTEND Hospitalist
DX: I13.0 Hypertensive heart and chronic kidney disease with heart failure and stage 1 through stage 4 chronic kidney disease, or unspecified chronic kidney disease (principal); I50.33 Acute on chronic diastolic (congestive) heart failure; I21.A1 Myocardial infarction type 2; N18.32 Chronic kidney disease, stage 3b; E11.22 Type 2 diabetes mellitus with diabetic chronic kidney disease; E11.42 Type 2 diabetes mellitus with diabetic polyneuropathy; E78.5 Hyperlipidemia, unspecified; M10.9 Gout, unspecified; K21.9 Gastro-esophageal reflux disease without esophagitis; M06.9 Rheumatoid arthritis, unspecified; I27.20 Pulmonary hypertension, unspecified; I25.10 Atherosclerotic heart disease of native coronary artery without angina pectoris; R33.9 Retention of urine, unspecified; Z60.2 Problems related to living alone; Z90.49 Acquired absence of other specified parts of digestive tract; Z88.8 Allergy status to other drugs, medicaments and biological substances; Z90.81 Acquired absence of spleen; Z79.4 Long term (current) use of insulin; Z79.82 Long term (current) use of aspirin; Z79.02 Long term (current) use of antithrombotics/antiplatelets; Z79.899 Other long term (current) drug therapy
CPT/HCPCS: 36415; 51702; 71045; 71250; 74176; 80048; 80076; 81001; 82947; 83880; 84145; 84484; 85025; 86140; 87086; 87088; 93005; 93306; 96374; 96375; 97116; 97161; 97530; 99285; J1644; J1940; J2270; J2405

== ENCOUNTER 2024-09-02 12:48 | Emergency (ER) | payer OTHER ==
[2024-09-02] MEDS ORDERED: NA CHLORIDE 0.9% 500 ML ONE (14:07)
[2024-09-02] MEDS ORDERED: ASPIRIN 81 MG CHEWABLE TABLET ONE (14:07)
--- NOTE | 2024-09-02 14:44 | RAD REPORT ---
EXAM: Chest Single View HISTORY: 64 years Female CHEST PAIN COMPARISON: 06/14/24 FINDINGS: LUNGS/PLEURA: Mild opacities at the left lung base which are not well assessed. CARDIAC/MEDIASTINUM: The cardiac silhouette is within normal limits. UPPER ABDOMEN: No significant abnormality. BONES: No acute abnormality. Postoperative changes in the left posterior chest wall. LINES/TUBES/OTHER: N/A IMPRESSION: Opacities at the left lung base which could represent postoperative/posttreatment changes. Cannot exc lude an acute airspace process such as pneumonia.
[2024-09-02 15:10] LABS: Absolute Basophils 0.2 K/uL (0-0.5); Absolute Eosinophils 0.5 K/uL (0-0.5); Absolute Lymphocytes (CBC) 2.5 K/uL (0.7-4.9); Absolute Monocytes 1.3 K/uL (0.1-1.3); Absolute Neutrophil 12.3 K/uL (1.8-8.0); Basophils % 0.9 % (0-1.3); Eosinophils % 2.9 % (0-4.4); Hematocrit 35.7 % (36.0-45.0); Hemoglobin 11.7 g/dL (12.0-15.0); Lymphocytes % 14.8 % (15.3-44.8); MCH 33.4 pg (27.0-35.0); MCHC 32.8 g/dL (32.0-36.0); MCV 101.7 fL (80-100); MPV 7.5 fL (7.6-11.3); Monocytes % 7.9 % (3.3-12.3); Neutrophils % 73.5 % (41.7-73.7); Nucleated RBC Absolute Count 0.2 (0-0); Nucleated Red Blood Cells % 0.9 % (0-0); Platelets 546 thou/uL (152-406); RBC Red Blood Cell Count 3.52 M/uL (3.86-4.86)
[2024-09-02 15:17] LABS: PT Prothrombin Time 12.3 SECONDS (10-13.0); Protime INR 1.08
[2024-09-02 15:31] LABS: ALT/SGPT 21 U/L (13-56); AST/SGOT 21 U/L (15-37); Albumin 2.9 g/dL (3.4-5.0); Albumin/Globulin Ratio 0.6 (1.1-1.8); Alkaline Phosphatase 89 U/L (45-117); Anion Gap 10.3 mEq/L (5.0-15.0); BUN Blood Urea Nitrogen 15 mg/dL (7-18); Bicarbonate 29 mEq/L (21-32); Bilirubin Total 0.3 mg/dL (0.2-1.0); Globulin 4.9 g/dL (2.3-3.5); Glomerular Filtration Rate 45 ml/min (=/>90); Glucose Level 110 mg/dL (74-106); Lipase 34 U/L (13-75); Magnesium 1.5 mg/dL (1.6-2.4); NT PRO-BNP 627 pg/mL (<125); Potassium 3.3 mEq/L (3.5-5.1); Protein, Total 7.8 g/dL (6.4-8.2); Sodium Level 135 mEq/L (136-145)
[2024-09-02 15:36] LABS: Bilirubin Direct < 0.2 mg/dL (0-0.2); Bilirubin Indirect, Calculated 0.1 mg/dL (0.2-0.8)
[2024-09-02 15:38] LABS: Troponin High Sensitivity 145.9 pg/mL (<58.9)
[2024-09-02 15:38] LABS: Specific Gravity 1.007 (1.005-1.030); Urine Bilirubin NEGATIVE (Negative); Urine Blood Negative (Negative); Urine Clarity Clear (Clear); Urine Color Light-Yellow (Yellow); Urine Glucose NEGATIVE (Negative); Urine Ketones NEGATIVE (Negative); Urine Microscopic Reflex YN NO UMIC; Urine Nitrite NEGATIVE (Negative); Urine Protein NEGATIVE (Negative); Urine Urobilinogen Normal (Normal); Urine pH 6.5 (5.0-7.0)
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
[2024-09-02] MEDS ORDERED: FAMOTIDINE 20 MG/2 ML VIAL IV ONE (16:19)
[2024-09-02] MEDS ORDERED: Levofloxacin500mg IV 500 MG/100 ML BAG IV ONE (16:19)
[2024-09-02] MEDS ORDERED: MORPHINE 4 MG/ML SYR ONE (16:19)
[2024-09-02] MEDS ORDERED: CEFTRIAXONE 1000 MG/VIAL ONE (16:19)
[2024-09-02] MEDS ORDERED: NA CHLORIDE 0.9% 3,000 ML ONE (16:20)
[2024-09-02] MEDS ORDERED: Magnesium Sulfate 2gm IVPB 2 G/50 ML BAG IV ONE (16:20)
[2024-09-02] MEDS ORDERED: POTASSIUM 25 MEQ EFFERV TAB ONE (16:37)
[2024-09-02] MEDS ORDERED: ENOXAPARIN 100 MG/ML SYR SQ ONE (16:37)
[2024-09-02] MEDS ORDERED: ONDANSETRON 4 MG/2 ML VIAL ONE (16:37)
[2024-09-02 16:47] LABS: Influenza A Ag Negative; Influenza B Ag Negative; SARS-CoV-2 Antigen Rapid Res Negative (Negative)
--- NOTE | 2024-09-02 17:14 | RAD REPORT ---
EXAMINATION: CTA CHEST PE CLINICAL INDICATION: Female, 64 years old. Chest pain;Dyspnea TECHNIQUE: This examination was performed according to an angiographic protocol with 3D post-processi ng. This involves 3D reconstructions, MIPs, volume rendered images and/or shaded surface rendering. One or more of the following dose reduction techniques were used: Automated exposure control, adjustm ent of the mA and/or kV according to patient size, and/or iterative reconstruction. Unless otherwise specified, incidental findings do not require dedicated imaging follow-up. [id number]. COMPARISON: CT 06/15/2024 FINDINGS: LOWER NECK: Visualized thyroid gland and soft tissues are normal. MEDIASTINUM AND LYMPH NODES: No mediastinal mass or fluid collection. Normal size mediastinal, hilar, and axillary lymph nodes. Fluid present within the esophagus which is patulous. Small hiatal hernia. THORACIC AORTA: No thoracic aortic aneurysm. PULMONARY ARTERIES: Caliber is within normal limits. HEART: Normal heart size. No coronary calcifications.No significant pericardial effusion. LUNGS AND AIRWAYS: Atelectasis and bronchiectasis in the medial left lower lobe is chronic..New 6 mm nodule in the right upper lobe on image 39, series 501 is nonspecific. There is some other scattered areas of subtle nodularity and marked nodularity. PLEURA: Small left pleural effusion. No pneumothorax. OSSEOUS STRUCTURES AND CHEST WALL: Postoperative changes in left posterior chest wall. Pacemaker. UPPER ABDOMEN: See separate report IMPRESSION: Negative for pulmonary embolism. Patulous esophagus containing fluid. Subtle areas of nodularity bila terally could be secondary to mild infection or inflammation or mild aspiration given the esophageal fluid. New 6 mm right upper lobe pulmonary nodule. This is probably benign. Suggest 6 month follow-up chest CT.
--- NOTE | 2024-09-02 17:17 | RAD REPORT ---
EXAMINATION: Abdomen Pelvis W Contrast CLINICAL INDICATION: Female, 64 years old.ABD PAIN TECHNIQUE: CT abdomen and pelvis was performed, after the administration of IV contrast, as per [facility] protocol. Axial, sagittal and coronal reconstructions were obtained. One or more of the following dose reduction techniques were used: Automated exposure control, adjustment of the mA and/o r kV according to patient size, and/or iterative reconstruction. Unless otherwise specified, incidental findings do not require dedicated imaging follow-up. [id number]. COMPARISON: 06/14/2024 FINDINGS: LOWER CHEST: See separate report. Coronary artery microcalcifications. Small hiatal hernia. UPPER GI: No significant abnormality. LIVER: No significant focal abnormality. GALLBLADDER/BILE DUCTS: Cholecystectomy. Mild extra-hepatic biliary ductal dilatation is likely relat ed to the post-cholecystectomy state. Consider correlating with LFT's.? PANCREAS: No mass, ductal dilation, or adele-pancreatic fluid. SPLEEN: Splenectomy ADRENALS: No adrenal masses. KIDNEYS AND URETERS: No hydronephrosis.Bilateral renal lesions of varying complexity, some of which m ay be solid.Atrophic left kidney with scarring. Right upper pole renal scarring. ABDOMINAL AORTA AND OTHER VESSELS: Normal caliber aorta and IVC. PERITONEUM: No abnormal free fluid. No free air. LYMPH NODES: No pathologic lymphadenopathy. ABDOMINAL WALL: Unremarkable SMALL BOWEL/COLON: Small bowel has normal course and caliber. No colonic wall thickening or pericolon ic inflammatory changes.Normal appendix. Moderate formed stool burden. URINARY BLADDER: Underdistended but grossly unremarkable. REPRODUCTIVE ORGANS: Outside uterine fibroid. MUSCULOSKELETAL: No acute or suspicious osseous abnormality. ADDITIONAL FINDINGS: None. IMPRESSION: No acute findings within the abdomen or pelvis. Indeterminate renal lesions bilaterally. Recommend nonemergent renal protocol MRI for further evaluat ion.
[2024-09-02 18:59] VITALS: TEMP 99
[2024-09-02 19:17] VITALS: BP 138/76; O2SAT 98
== END 2024-09-02 18:49 | disposition short-term general hospital (02) ==
LOC: ER 12:48
DX: J18.1 Lobar pneumonia, unspecified organism (principal); A41.9 Sepsis, unspecified organism; R65.20 Severe sepsis without septic shock; R91.1 Solitary pulmonary nodule; E87.6 Hypokalemia; E83.42 Hypomagnesemia; D72.829 Elevated white blood cell count, unspecified; R10.817 Generalized abdominal tenderness; R79.89 Other specified abnormal findings of blood chemistry; Z95.0 Presence of cardiac pacemaker
CPT/HCPCS: 93005; 87040 ×2; 85025; 80048; 36415; 83735; 85610; 80076; 83605; 81003; 84484; 83690; 83880; 71275; 74177; 71045; 87428; Q9967; J1650; J3475; J2405; J7040; J7030; J0696; 96361; 96365; 96372; 96375; 99285